=== PATIENT | female | born 1960 | race Caucasian/White ===

== ENCOUNTER 2022-08-29 10:38 | Outpatient (CLI) | payer BC, SELFPAY ==
--- NOTE | 2022-08-29 11:15 | CRLHL7_ITS ---
For Patients: As a result of the Century Cures Act, medical imaging exams and procedure reports are released immediately into your electronic medical record. You may view this report before your referring provider. If you have questions, please contact your health care provider. Indication: NSCLC WITH BONE METS TO RIGHT HIP Technique: Pelvis and right hip 3 views Comparison: None Findings: There is no pathologic fracture. No periostitis or cortical destruction. Subtle areas of abnormal bone density suspected corresponding to the known metastatic lesions. Mild degenerative changes. Impression: No pathologic fracture. Dictated by Vahid Reece MD @ 08/30/2022 6:38:42 AM (Electronically Signed)
== END 2022-08-29 10:39 | disposition home or self-care (01) ==
PROVIDERS: PCP Family Medicine; Visit Provider Nurse Practitioner
DX: C34.32 Malignant neoplasm of lower lobe, left bronchus or lung (principal); C79.51 Secondary malignant neoplasm of bone
CPT/HCPCS: 73502

== ENCOUNTER 2022-11-22 07:59 | Outpatient (CLI) | payer BC, SELFPAY ==
--- NOTE | 2022-11-22 08:15 | CRLHL7_ITS ---
For Patients: As a result of the Century Cures Act, medical imaging exams and procedure reports are released immediately into your electronic medical record. You may view this report before your referring provider. If you have questions, please contact your health care provider. INDICATION: Follow-up intracranial metastatic disease. TECHNIQUE: Brain MRI with contrast. The following sequences were obtained: Sagittal T1 weighted sequence. DWI and ADC mapping sequences. Axial FLAIR and PRISCILA T2 weighted sequences. 3D sagittal FLAIR sequence. T1 weighted post-contrast sequence(s). 15 cc of Dotarem gadolinium based contrast agent was used. COMPARISON: Brain MRI from 08/23/2022. FINDINGS: Again demonstrated are numerous (greater than 30 foci) of enhancement within the supratentorial/infratentorial brain. The largest lesion within the left brachium pontis measures 8 millimeters, and is slightly decreased in size compared to the prior exam. Multiple additional enhancing lesions are either stable or decreased in size. A few of the previously seen smaller lesions have resolved no new enhancing lesions. No evidence of acute ischemia. No evidence of acute or chronic intracranial blood products. Scattered FLAIR hyperintensities within the supratentorial white matter and brainstem, typical for chronic microvascular ischemic change. No hydrocephalus or extra-axial collections. The pituitary gland, parasellar structures and optic chiasm are normal. All the major intracranial vascular structures demonstrate normal flow-related signal. The orbital contents are normal. No calvarial or skull base marrow signal abnormality. No obstructive sinus disease. 8 millimeter T2 hyperintense nodule right parotid tail. Stable. IMPRESSION: 1. Findings compatible with a positive treatment response. Decreased size of most of the previously seen metastatic lesions, with resolution of a few of the smaller lesions. No new intracranial metastases. 2. No acute ischemia or other acute intracranial pathology. Dictated by Swapnil Orozco MD @ 11/25/2022 12:59:16 PM (Electronically Signed)
== END 2022-11-22 08:00 | disposition home or self-care (01) ==
PROVIDERS: PCP Family Medicine; Visit Provider Internal Medicine
DX: C79.31 Secondary malignant neoplasm of brain (principal)
CPT/HCPCS: 70553; A9575

== ENCOUNTER 2023-02-23 08:00 | Outpatient (RCR) | payer BC, SELFPAY ==
[2022-09-22 09:42] LABS: Basophils Absolute Auto 0.05 K/uL (0.00-0.30); Basophils Percent Auto 0.5 % (0.0-3.0); Eosinophils Absolute Auto 0.16 K/uL (0.00-0.50); Eosinophils Percent Auto 1.7 % (0.0-7.0); Hematocrit 44.1 % (33.0-51.0); Hemoglobin* 14.7 gm/dL (12.0-16.0); Immature Granulocytes Abs Auto 0.01 K/uL (0.00-0.30); Immature Granulocytes Pct Auto 0.1 %; Lymphocytes Percent Auto 13.5 % (20-44); Mean Corpuscular HGB Conc 33 gm/dL (32-36); Mean Corpuscular Hemoglobin 31 pg (26-34); Mean Corpuscular Volume 93 fL (80-100); Monocytes Percent Auto 5.5 % (0.0-11.0); Neutrophils Percent Auto 78.7 % (42.0-72.0); Platelet Count* 392 K/uL (140-440); RDW Coefficient of Variation % 12.2 % (11.5-15.5); Red Blood Count 4.72 m/uL (4.00-5.20); White Blood Count* 9.51 K/uL (4.50-11.00)
[2022-09-22 09:49] LABS: Slide Review Reflex No
[2022-09-22 09:59] LABS: Chloride* 104 mmol/L (96-114)
[2022-09-22 10:00] LABS: Albumin* 4.6 g/dL (3.3-5.0); Potassium* 4.2 mmol/L (3.6-5.1); Sodium* 137 mmol/L (135-149)
[2022-09-22 10:02] LABS: Creatinine* 0.5 mg/dL (0.5-1.5); Est. Creatinine Clearance* 46.73; Estimated Glomerular Filt Rate 107 ml/min
[2022-09-22 10:03] LABS: Alanine Aminotransferase* 23 U/L (4-35); Alkaline Phosphatase* 77 U/L (40-150); Aspartate Amino Transferase* 26 U/L (12-35); Bilirubin Total* 0.5 mg/dL (0.1-1.5); Blood Urea Nitrogen* 14 mg/dL (7-30); Carbon Dioxide* 27 mmol/L (20-32); Glucose* 98 mg/dL (60-115)
[2022-09-22 10:04] LABS: Calcium* 9.4 mg/dL (8.4-10.6)
--- NOTE | 2022-09-23 14:08 | URNOTE ---
Request received for authorization for Pembrolizumab (Keytruda) ([id number]). Prior authorization is approved by Jeet Ellis MA Keytruda 100mg/4ml, 9999 units from 09/29/2022 to 09/29/2023.
[2022-09-29 08:33] VITALS: BP 154/79; PULSE 77; RESP 18; TEMP 36.8; O2SAT 97
[2022-09-29] MEDS: 0.9 % SODIUM CHLORIDE 250 ml IV (09:04)
[2022-09-29] MEDS: PEMBROLIZUMAB 200 MG, TUBING PRIMARY 1 EACH, In-line 0.2 micron filter set 1 EACH in 0.... 216 MG IVPB (09:04)
--- NOTE | 2022-09-29 13:47 | ONC.NURNOTE ---
PSDS =0 with no listed problems
--- NOTE | 2022-09-30 10:49 | ONC.NURNOTE ---
Called patient to see how she is feeling following her infusion yesterday. She notes that she feels like she usually does. Reminded her to call with any questions or concerns that arise.
[2022-10-20 08:34] LABS: Basophils Percent Auto 0.3 % (0.0-3.0); Eosinophils Percent Auto 1.6 % (0.0-7.0); Hematocrit 40.9 % (33.0-51.0); Hemoglobin* 13.6 gm/dL (12.0-16.0); Immature Granulocytes Pct Auto 0.4 %; Lymphocytes Percent Auto 6.5 % (20-44); Mean Corpuscular HGB Conc 33 gm/dL (32-36); Mean Corpuscular Hemoglobin 31 pg (26-34); Mean Corpuscular Volume 93 fL (80-100); Monocytes Percent Auto 4.8 % (0.0-11.0); Neutrophils Percent Auto 86.4 % (42.0-72.0); Platelet Count* 491 K/uL (140-440); RDW Coefficient of Variation % 11.8 % (11.5-15.5); White Blood Count* 17.36 K/uL (4.50-11.00)
[2022-10-20 08:38] LABS: Slide Review Reflex No
[2022-10-20 08:45] LABS: Albumin* 4.1 g/dL (3.3-5.0); Chloride* 102 mmol/L (96-114); Potassium* 4.6 mmol/L (3.6-5.1); Sodium* 136 mmol/L (135-149)
[2022-10-20 08:47] LABS: Creatinine* 0.6 mg/dL (0.5-1.5); Est. Creatinine Clearance* 46.73; Estimated Glomerular Filt Rate 102 ml/min
[2022-10-20 08:48] LABS: Alanine Aminotransferase* 30 U/L (4-35); Alkaline Phosphatase* 97 U/L (40-150); Aspartate Amino Transferase* 27 U/L (12-35); Bilirubin Total* 0.6 mg/dL (0.1-1.5); Blood Urea Nitrogen* 11 mg/dL (7-30); Carbon Dioxide* 28 mmol/L (20-32); Glucose* 161 mg/dL (60-115); Total Protein* 7.4 g/dL (6.0-8.3)
[2022-10-20 09:31] LABS: Thyroid Stimulating Hormone* 0.789 uIU/mL (0.270-4.20)
[2022-10-20 10:00] LABS: Appearance Urine Clear (Clear); Bilirubin Urine Negative (Negative); Blood Urine Negative (Negative); Color Urine Yellow (Yellow); Glucose Urine Negative (Negative); Ketones Urine Negative (Negative); Leukocyte Esterase Urine Negative (Negative); Nitrite Urine Negative (Negative); Protein Urine Negative (Negative); Urobilinogen Urine 0.2 (0.2-1.0); pH Urine 5.5 (5.0-8.5)
[2022-10-20 10:15] LABS: Bacteria Urine Few; RBC Urine 0-2 (0-2); Squamous Epithelial Cell Urine Few (None-Few); WBC Urine 0-2 (0-5)
[2022-10-20] MEDS: SODIUM CHLORIDE 0.9 % (FLUSH) 10 ML SYRINGE IVF (10:25)
[2022-10-20] MEDS: PEMBROLIZUMAB 200 MG, TUBING PRIMARY 1 EACH, In-line 0.2 micron filter set 1 EACH in 0.... 216 MG IVPB (10:33)
[2022-10-20] MEDS: 0.9 % SODIUM CHLORIDE 250 ml IV (10:33)
[2022-11-10 08:24] LABS: Basophils Absolute Auto 0.04 K/uL (0.00-0.30); Basophils Percent Auto 0.4 % (0.0-3.0); Eosinophils Absolute Auto 0.13 K/uL (0.00-0.50); Eosinophils Percent Auto 1.2 % (0.0-7.0); Hematocrit 40.7 % (33.0-51.0); Hemoglobin* 13.4 gm/dL (12.0-16.0); Immature Granulocytes Abs Auto 0.04 K/uL (0.00-0.30); Immature Granulocytes Pct Auto 0.4 %; Lymphocytes Percent Auto 9.1 % (20-44); Mean Corpuscular HGB Conc 33 gm/dL (32-36); Mean Corpuscular Hemoglobin 31 pg (26-34); Mean Corpuscular Volume 93 fL (80-100); Monocytes Percent Auto 5.1 % (0.0-11.0); Neutrophils Percent Auto 83.8 % (42.0-72.0); Platelet Count* 538 K/uL (140-440); RDW Coefficient of Variation % 11.8 % (11.5-15.5); Red Blood Count 4.39 m/uL (4.00-5.20); White Blood Count* 10.88 K/uL (4.50-11.00)
[2022-11-10 08:37] LABS: Slide Review Reflex No
[2022-11-10 08:49] LABS: Albumin* 4.1 g/dL (3.3-5.0); Chloride* 102 mmol/L (96-114); Sodium* 136 mmol/L (135-149)
[2022-11-10 08:50] LABS: Potassium* 4.4 mmol/L (3.6-5.1)
[2022-11-10 08:52] LABS: Alkaline Phosphatase* 82 U/L (40-150); Aspartate Amino Transferase* 21 U/L (12-35); Bilirubin Total* 0.6 mg/dL (0.1-1.5); Blood Urea Nitrogen* 13 mg/dL (7-30); Carbon Dioxide* 28 mmol/L (20-32); Creatinine* 0.7 mg/dL (0.5-1.5); Est. Creatinine Clearance* 46.73; Estimated Glomerular Filt Rate 98 ml/min; Glucose* 111 mg/dL (60-115); Total Protein* 7.4 g/dL (6.0-8.3)
[2022-11-10 08:53] LABS: Alanine Aminotransferase* 17 U/L (4-35); Calcium* 9.2 mg/dL (8.4-10.6)
[2022-11-10 09:51] LABS: Thyroid Stimulating Hormone* 0.331 uIU/mL (0.270-4.20)
[2022-11-10] MEDS: PEMBROLIZUMAB 200 MG, TUBING PRIMARY 1 EACH, In-line 0.2 micron filter set 1 EACH in 0.... 216 MG IVPB (10:23)
[2022-12-01 08:06] LABS: Basophils Absolute Auto 0.03 K/uL (0.00-0.30); Basophils Percent Auto 0.3 % (0.0-3.0); Eosinophils Absolute Auto 0.22 K/uL (0.00-0.50); Eosinophils Percent Auto 2.2 % (0.0-7.0); Hematocrit 40.3 % (33.0-51.0); Hemoglobin* 13.1 gm/dL (12.0-16.0); Immature Granulocytes Abs Auto 0.01 K/uL (0.00-0.30); Immature Granulocytes Pct Auto 0.1 %; Lymphocytes Percent Auto 10.8 % (20-44); Mean Corpuscular HGB Conc 33 gm/dL (32-36); Mean Corpuscular Hemoglobin 30 pg (26-34); Mean Corpuscular Volume 93 fL (80-100); Monocytes Percent Auto 4.7 % (0.0-11.0); Neutrophils Percent Auto 81.9 % (42.0-72.0); Platelet Count* 405 K/uL (140-440); RDW Coefficient of Variation % 12.2 % (11.5-15.5); Red Blood Count 4.32 m/uL (4.00-5.20); White Blood Count* 9.91 K/uL (4.50-11.00)
[2022-12-01 08:07] LABS: Slide Review Reflex No
[2022-12-01 08:23] LABS: Albumin* 4.2 g/dL (3.3-5.0)
[2022-12-01 08:24] LABS: Chloride* 104 mmol/L (96-114); Potassium* 4.2 mmol/L (3.6-5.1); Sodium* 139 mmol/L (135-149)
[2022-12-01 08:26] LABS: Bilirubin Total* 0.5 mg/dL (0.1-1.5); Carbon Dioxide* 28 mmol/L (20-32); Creatinine* 0.6 mg/dL (0.5-1.5); Est. Creatinine Clearance* 46.73; Estimated Glomerular Filt Rate 102 ml/min
[2022-12-01 08:27] LABS: Alanine Aminotransferase* 15 U/L (4-35); Alkaline Phosphatase* 72 U/L (40-150); Aspartate Amino Transferase* 25 U/L (12-35); Blood Urea Nitrogen* 13 mg/dL (7-30); Calcium* 9.2 mg/dL (8.4-10.6); Glucose* 89 mg/dL (60-115); Total Protein* 7.3 g/dL (6.0-8.3)
[2022-12-01] MEDS: PEMBROLIZUMAB 200 MG, TUBING PRIMARY 1 EACH, In-line 0.2 micron filter set 1 EACH in 0.... 216 MG IVPB (08:56)
[2022-12-01 09:13] LABS: Thyroid Stimulating Hormone* 0.438 uIU/mL (0.270-4.20)
[2022-12-22 10:25] LABS: Basophils Absolute Auto 0.04 K/uL (0.00-0.30); Basophils Percent Auto 0.5 % (0.0-3.0); Eosinophils Absolute Auto 0.18 K/uL (0.00-0.50); Eosinophils Percent Auto 2.4 % (0.0-7.0); Hematocrit 44.2 % (33.0-51.0); Hemoglobin* 14.3 gm/dL (12.0-16.0); Mean Corpuscular HGB Conc 32 gm/dL (32-36); Mean Corpuscular Hemoglobin 30 pg (26-34); Mean Corpuscular Volume 93 fL (80-100); Neutrophils Percent Auto 79.1 % (42.0-72.0); Platelet Count* 435 K/uL (140-440); RDW Coefficient of Variation % 12.2 % (11.5-15.5); Red Blood Count 4.76 m/uL (4.00-5.20); White Blood Count* 7.48 K/uL (4.50-11.00)
[2022-12-22 10:28] LABS: Slide Review Reflex No
[2022-12-22 10:52] LABS: Albumin* 4.5 g/dL (3.3-5.0); Chloride* 102 mmol/L (96-114); Potassium* 3.8 mmol/L (3.6-5.1); Sodium* 138 mmol/L (135-149)
[2022-12-22 10:54] LABS: Creatinine* 0.8 mg/dL (0.5-1.5); Est. Creatinine Clearance* 44.58; Estimated Glomerular Filt Rate 84 ml/min
[2022-12-22 10:55] LABS: Alanine Aminotransferase* 16 U/L (4-35); Alkaline Phosphatase* 77 U/L (40-150); Aspartate Amino Transferase* 22 U/L (12-35); Bilirubin Total* 0.7 mg/dL (0.1-1.5); Blood Urea Nitrogen* 14 mg/dL (7-30); Carbon Dioxide* 27 mmol/L (20-32); Glucose* 87 mg/dL (60-115); Total Protein* 8.1 g/dL (6.0-8.3)
[2022-12-22 10:56] LABS: Calcium* 9.3 mg/dL (8.4-10.6)
[2022-12-22 11:27] LABS: Thyroid Stimulating Hormone* 0.207 uIU/mL (0.270-4.20)
[2022-12-22] MEDS: PEMBROLIZUMAB 200 MG, TUBING PRIMARY 1 EACH, In-line 0.2 micron filter set 1 EACH in 0.... 216 MG IVPB (11:45)
--- NOTE | 2023-01-09 13:23 | URNOTE ---
Received request for Zoledronic Acid (Zometa) ([id number]). This has been approved 01/12/2023-01/12/2024.Auth #[id number]
[2023-01-10 09:53] LABS: Basophils Absolute Auto 0.04 K/uL (0.00-0.30); Basophils Percent Auto 0.6 % (0.0-3.0); Eosinophils Absolute Auto 0.17 K/uL (0.00-0.50); Eosinophils Percent Auto 2.5 % (0.0-7.0); Hematocrit 38.9 % (33.0-51.0); Hemoglobin* 12.8 gm/dL (12.0-16.0); Lymphocytes Percent Auto 16.4 % (20-44); Mean Corpuscular HGB Conc 33 gm/dL (32-36); Mean Corpuscular Hemoglobin 30 pg (26-34); Mean Corpuscular Volume 92 fL (80-100); Monocytes Percent Auto 6.3 % (0.0-11.0); Neutrophils Percent Auto 74.2 % (42.0-72.0); Platelet Count* 379 K/uL (140-440); RDW Coefficient of Variation % 12.6 % (11.5-15.5); Red Blood Count 4.21 m/uL (4.00-5.20); White Blood Count* 6.72 K/uL (4.50-11.00)
[2023-01-10 09:56] LABS: Slide Review Reflex No
[2023-01-10 10:08] LABS: Albumin* 4.1 g/dL (3.3-5.0); Chloride* 105 mmol/L (96-114); Potassium* 3.9 mmol/L (3.6-5.1); Sodium* 137 mmol/L (135-149)
[2023-01-10 10:10] LABS: Bilirubin Total* 0.6 mg/dL (0.1-1.5); Creatinine* 0.6 mg/dL (0.5-1.5); Est. Creatinine Clearance* 44.58; Estimated Glomerular Filt Rate 102 ml/min
[2023-01-10 10:11] LABS: Alanine Aminotransferase* 13 U/L (4-35); Alkaline Phosphatase* 64 U/L (40-150); Aspartate Amino Transferase* 21 U/L (12-35); Blood Urea Nitrogen* 16 mg/dL (7-30); Calcium* 9.1 mg/dL (8.4-10.6); Carbon Dioxide* 24 mmol/L (20-32); Glucose* 88 mg/dL (60-115); Total Protein* 7.3 g/dL (6.0-8.3)
[2023-01-10 11:09] LABS: Thyroid Stimulating Hormone* < 0.015 uIU/mL (0.270-4.20)
--- NOTE | 2023-01-10 14:56 | ONC.NURNOTE ---
TSH today <0.015, discussed with Iesha. Per Iesha, hold Keytruda on 01/11/23. T3 and T4 added on to blood drawn today. Channel Sales Director emailed Dr. Felipe results and requested parameters to treat. Left message with pt to call back since we will not be able to treat her 01/11/23 morning.
[2023-01-10 15:22] LABS: Free T4 Free Thyroxine* 1.57 ng/dL (0.70-1.85)
[2023-01-12 12:15] VITALS: BP 104/66; PULSE 71; RESP 14; TEMP 36.1; O2SAT 97
[2023-01-12] MEDS: PEMBROLIZUMAB 200 MG, TUBING PRIMARY 1 EACH, In-line 0.2 micron filter set 1 EACH in 0.... 216 MG IVPB (12:53)
[2023-01-12 23:01] LABS: Free T3 3.2 pg/mL (2.5-4.3)
--- NOTE | 2023-01-19 15:59 | ONC.NURNOTE ---
Patient's friend, Josef, called to see when patients next appointments are going to be. RN will be following up tomorrow.
[2023-01-31 08:18] LABS: Basophils Absolute Auto 0.04 K/uL (0.00-0.30); Basophils Percent Auto 0.5 % (0.0-3.0); Eosinophils Absolute Auto 0.19 K/uL (0.00-0.50); Eosinophils Percent Auto 2.5 % (0.0-7.0); Hematocrit 42.1 % (33.0-51.0); Hemoglobin* 13.7 gm/dL (12.0-16.0); Lymphocytes Percent Auto 17.1 % (20-44); Mean Corpuscular HGB Conc 33 gm/dL (32-36); Mean Corpuscular Hemoglobin 30 pg (26-34); Mean Corpuscular Volume 92 fL (80-100); Monocytes Percent Auto 5.2 % (0.0-11.0); Neutrophils Percent Auto 74.7 % (42.0-72.0); Platelet Count* 364 K/uL (140-440); RDW Coefficient of Variation % 12.7 % (11.5-15.5); Red Blood Count 4.58 m/uL (4.00-5.20)
[2023-01-31 08:24] LABS: Slide Review Reflex No
[2023-01-31 08:29] LABS: Albumin* 4.1 g/dL (3.3-5.0); Chloride* 108 mmol/L (96-114); Potassium* 4.4 mmol/L (3.6-5.1); Sodium* 140 mmol/L (135-149)
[2023-01-31 08:31] LABS: Creatinine* 0.6 mg/dL (0.5-1.5); Est. Creatinine Clearance* 44.58; Estimated Glomerular Filt Rate 102 ml/min
[2023-01-31 08:32] LABS: Alanine Aminotransferase* 15 U/L (4-35); Alkaline Phosphatase* 72 U/L (40-150); Anion Gap 6 mEq/L (7-15); Aspartate Amino Transferase* 24 U/L (12-35); Bilirubin Total* 0.4 mg/dL (0.1-1.5); Blood Urea Nitrogen* 10 mg/dL (7-30); Carbon Dioxide* 26 mmol/L (20-32); Total Protein* 7.2 g/dL (6.0-8.3)
[2023-01-31 08:33] LABS: Glucose* 100 mg/dL (60-115)
[2023-01-31 09:29] LABS: Thyroid Stimulating Hormone* < 0.015 uIU/mL (0.270-4.20)
[2023-02-02 13:59] LABS: Calcium* 9.2 mg/dL (8.4-10.6)
[2023-02-02] MEDS: PEMBROLIZUMAB 200 MG, TUBING PRIMARY 1 EACH, In-line 0.2 micron filter set 1 EACH in 0.... 216 MG IVPB (14:44)
[2023-02-02] MEDS: ZOLEDRONIC ACID 4 MG in 0.9 % SODIUM CHLORIDE 100 ml 100 ML 420 MG IVPB (15:17)
[2023-02-02 15:53] LABS: Free T4 Free Thyroxine* 1.61 ng/dL (0.70-1.85)
[2023-02-04 20:24] LABS: Adrenocorticotropic Hormone 21.1 pg/mL (7.2-63.3)
[2023-02-04 21:45] LABS: Cortisol, Serum 29.4 ug/dL
[2023-02-04 23:40] LABS: Free T3 3.1 pg/mL (2.5-4.3)
[2023-02-21 09:49] LABS: Basophils Absolute Auto 0.05 K/uL (0.00-0.30); Basophils Percent Auto 0.8 % (0.0-3.0); Eosinophils Absolute Auto 0.18 K/uL (0.00-0.50); Eosinophils Percent Auto 2.7 % (0.0-7.0); Hematocrit 44.4 % (33.0-51.0); Hemoglobin* 14.3 gm/dL (12.0-16.0); Immature Granulocytes Abs Auto 0.01 K/uL (0.00-0.30); Immature Granulocytes Pct Auto 0.2 %; Lymphocytes Percent Auto 19.5 % (20-44); Mean Corpuscular HGB Conc 32 gm/dL (32-36); Mean Corpuscular Hemoglobin 29 pg (26-34); Mean Corpuscular Volume 91 fL (80-100); Monocytes Percent Auto 5.8 % (0.0-11.0); Neutrophils Absolute Auto 4.65 K/uL (1.7-7.0); Platelet Count* 406 K/uL (140-440); RDW Coefficient of Variation % 12.8 % (11.5-15.5); Red Blood Count 4.88 m/uL (4.00-5.20); Slide Review Reflex No; White Blood Count* 6.55 K/uL (4.50-11.00)
[2023-02-21 10:09] LABS: Albumin* 4.4 g/dL (3.3-5.0)
[2023-02-21 10:10] LABS: Chloride* 106 mmol/L (96-114); Potassium* 4.4 mmol/L (3.6-5.1); Sodium* 139 mmol/L (135-149)
[2023-02-21 10:12] LABS: Anion Gap 6 mEq/L (7-15); Aspartate Amino Transferase* 23 U/L (12-35); Bilirubin Total* 0.6 mg/dL (0.1-1.5); Carbon Dioxide* 27 mmol/L (20-32); Creatinine* 0.6 mg/dL (0.5-1.5); Est. Creatinine Clearance* 44.58; Estimated Glomerular Filt Rate 102 ml/min; Total Protein* 7.9 g/dL (6.0-8.3)
[2023-02-21 10:13] LABS: Alanine Aminotransferase* 16 U/L (4-35); Alkaline Phosphatase* 65 U/L (40-150); Blood Urea Nitrogen* 11 mg/dL (7-30); Calcium* 9.4 mg/dL (8.4-10.6); Glucose* 105 mg/dL (60-115)
[2023-02-23 08:00] VITALS: BP 117/62; PULSE 66; RESP 16; TEMP 36.4; O2SAT 98
[2023-02-23] MEDS: PEMBROLIZUMAB 200 MG, TUBING PRIMARY 1 EACH, In-line 0.2 micron filter set 1 EACH in 0.... 216 MG IVPB (09:15)
[2023-02-23] MEDS: ZOLEDRONIC ACID 4 MG in 0.9 % SODIUM CHLORIDE 100 ml 100 ML 420 MG IVPB (09:49)
[2023-02-23] MEDS: 0.9 % SODIUM CHLORIDE 250 ml IV (09:50)
[2023-02-23] MEDS: SODIUM CHLORIDE 0.9 % (FLUSH) 10 ML SYRINGE IVF (09:50)
== END 2023-02-28 23:59 | disposition home or self-care (01) ==
LOC: CCIC 08:00
PROVIDERS: Internal Medicine Hematology & Oncology; Physician Assistant; PCP Family Medicine; Referring Provider Family Medicine; Visit Provider Clinical Nurse Specialist
DX: C34.92 Malignant neoplasm of unspecified part of left bronchus or lung (principal); Z51.12 Encounter for antineoplastic immunotherapy; C79.51 Secondary malignant neoplasm of bone
CPT/HCPCS: 36415; 80053; 81001; 82024; 82310; 82533; 84439; 84443; 84481; 85025; 87040; 87086; 96374; 96376; 96411; 96413; 99203; 99205; 99211; 99212; 99213; 99214; 99215; J3489; J7050; J9271

== ENCOUNTER 2023-05-05 08:06 | Outpatient (CLI) | payer BC, SELFPAY ==
--- NOTE | 2023-05-05 08:15 | PE_ITS ---
[facility] [address] [facility] [address] Phone:?[phone] Fax:?[phone] Referring Physician Information: Lakisha Julian M.D. [address] [facility] [address] Phone:?[phone] Fax:?[phone] Patient:Mee Deleon D.O.B:?1960 Sex:?Female Phone:?[phone] [facility] MRN:?[id number] Exam Date:?05/05/2023 EXAM: PET/CT SCAN MID-ORBITS TO PROXIMAL THIGHS CLINICAL INFORMATION: Non-small cell lung carcinoma; restaging. COMPARISON:?Most recent PET/CT 02/14/2023. TECHNICAL INFORMATION: Spiral acquisition of data was obtained from the mid orbits to the proximal thighs with reconstruction of 3.75 mm thick images at 3.[address] data was used for attenuation correction. PET scanning was performed through the same anatomic range 54 minutes following administration of 12.9 mCi of 18-FDG delivered intravenously. The patient's glucose at the time of the injection was 81 mg/dL. PET, CT and PET/CT fusion images are interpreted using a computer viewing workstation. Physiologic activity (liver SUV max 3.0; mediastinal blood pool 2.5) INTERPRETATION: Head and Neck: No definite FDG avid brain parenchymal uptake, however MRI with contrast is more sensitive in detection of brain lesions. No neck adenopathy or abnormal radiotracer uptake. Chest: 1 cm right upper lobe nodule, SUV max 1.7, previously 2. No significant change in the size or FDG avidity left lower lobe lesion, SUV max 2.3, previously 3.8 on 02/14/2023. Stable size of 12 mm right subcarinal/infrahilar lymph node, with FDG uptake, SUV max 10.15, previously 6.8. 9 mm right suprahilar node SUV max 5.32. Stable size of left hilar adenopathy, SUV max 7.45, previously 6.3 on 02/14/2023. Abdomen, Pelvis and Proximal Thighs: Physiologic distribution of radiotracer uptake throughout the liver, GI and tract. No mesenteric or retroperitoneal adenopathy. MUSCULOSKELETAL: Numerous scattered sclerotic metastasis with FDG avidity throughout the axial and appendicular skeleton, including right humeral head, bilateral ribs, thoracic/lumbar vertebrae, bony pelvis. No new lesions are identified. CONCLUSION: 1. Stable sized with interval FDG avidity right subcarinal/hilar lymph node, SUV max 10.15, previously 6.8 on 02/14/2023. 2. Relative stable size and metabolic activity right upper/left lower lobe malignancy, left hilar adenopathy and multiple sclerotic osseous lesions. No new lesions are identified. Electronically signed on 05/08/2023 11:00:00 AM by Clemente Craven M.D.
== END 2023-05-05 08:07 | disposition home or self-care (01) ==
LOC: RAD 08:07
PROVIDERS: PCP Family Medicine; Visit Provider Internal Medicine Hematology & Oncology
DX: C34.32 Malignant neoplasm of lower lobe, left bronchus or lung (principal)
CPT/HCPCS: 78815; A9552

== ENCOUNTER 2023-06-26 09:06 | Outpatient (CLI) | payer BC, SELFPAY ==
--- OUTSIDE RECORDS SUMMARY | 2023-06-26 09:10 | XMS_ITS | Encounter Summary ---
Author Name Unknown Organization [facility] Address [address] [place] [address] Care Team Providers Care Rubber Attacher Name Role Phone Suhail Burrows M.D. Primary Care P dena Reason for Referral * MRI/CAT/PET Scan (Routine) - Modified Order Specialty Diagnoses / Procedures Referred By Yelena griffin Referred To Contact Radiology Diagnoses 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) Secondary Malignant Neoplasm Brain (HCC) Procedures MR Brain with IV Contrast MR Brain with IV Contrast Clemente Feng M.D. [address] [place] [address] [facility] Referral ID Status Reason Start Date Expiration Date V isits Requested Visits Authorized [id number] Modified Order 05/24/2023 05/23/2024 1 1 DENTIAL ASSISTANT * Outpatient (Routine) - Authorized Specialty Diagnoses / Procedures Referred By Yelena griffin Referred To Contact Radiation Oncology Clemente Feng M.D. [address] [place] [address] [facility] Referral ID Status Reason Start Date Expiration Date V isits Requested Visits Authorized [id number] Authorized 05/24/2023 05/23/2026 1 1 Scheduling Instructions AFTER brain MRI and visit with Dr. Julian at [facility]. Patient may cancel visit if she already has results from Dr. Julian. DENTIAL ASSISTANT * Radiation Therapy (Routine) - Authorized Specialty Diagnoses / Procedures Referred By Yelena griffin Referred To Contact Diagnoses 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) Procedures Management Visit Celmente Feng M.D. [address] [place] [address] [facility] Region Referral ID Status Reason Start Date Expiration Date V isits Requested Visits Authorized [id number] Authorized 05/12/2023 05/11/2024 10 10 DENTIAL ASSISTANT Reason for Visit * Radiation Therapy (Routine) - Authorized Specialty Diagnoses / Procedures Referred By Yelena griffin Referred To Contact Diagnoses 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) Procedures Management Visit Clemente Feng M.D. [address] [place] [address] [facility] Region Referral ID Status Reason Start Date Expiration Date V isits Requested Visits Authorized [id number] Authorized 05/12/2023 05/11/2024 10 10 Encounter Details Date Type Department Care Team (Latest Contact Info) Description 05/24/2023 11:17 AM RESIDENTIAL ASSISTANT - 05/28/2023 3:15 PM RESIDENTIAL ASSISTANT Hospital Encounter Department of Radiation Oncology in [address] [address] Clemente Feng M.D. [address] [place] [phone] Secondary Malignant Neoplasm Brain (HCC) (Primary Dx); 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) Social History Tobacco Use Types Packs/Day Years Used Date Smoking Tobacco: Former Cigarettes 30 1 993 - 08/10/2022 Smokeless Tobacco: Never Alcohol Use Standard Drinks/Week Comments Yes 0 (1 standard drink = 0.6 oz pur e alcohol) rare Nutrition Answer Date Recorded Nutrition: EVOO Fat Source Unknown 06/09 Nutrition: Servings of Fruits/Vegetables per Day Not on file 06/09/2022 Dental Answer Date Recorded Dental: Regular Dentist Unknown 06/09/20 22 Sex and Gender Information Value Date Recorded Sex Assigned at Not on file Gender Identity Not on file Sexual Orientation Not on file documented as of this encounter Last Filed Vital Signs Vital Sign Reading Time Taken Comments Blood Pressure 107/51 05/24/2023 11:33 AM RESIDENTIAL ASSISTANT Pulse 62 05/24/2023 11:33 AM RESIDENTIAL ASSISTANT Temperature 36.6 ??C (97.9 ??F) 05/24/2023 11:[address] Respiratory Rate - - Oxygen Saturation - - Inhaled Oxygen Concentration - - Weight 51 kg (112 lb 7 oz) 05/24/2023 11:[address] Height - - Body Mass Index 20.05 09/21/2022 8:18 AM CDT documented in this encounter Medications at Time of Discharge Medication Sig Dispensed Refills Start Date End Date amLODIPine (NORVASC) 10 mg tabletIndications:Hyper tension Essential Primary Take 1 tablet (10 mg total) by mouth daily. 90 tablet 3 09/21/2022 09/21/2023 cyclobenzaprine (FLEXERIL) 10 mg tabletIndications:Malig nant Neoplasm Of Lung Lower Lobe Or Bronchus Left (HCC) Take 1 tablet (10 mg total) by mouth at bedtime. 30 tablet 1 09/21/2022 memantine (NAMENDA) 10 mg tabletIndications:Malig nant Neoplasm Of Lung Lower Lobe Or Bronchus Left (HCC) Take 1 tablet (10 mg total) by mouth 2 (two) times a day. 180 tablet 3 09/21/2022 09/21/2023 documented as of this encounter Progress Notes * Clemente Feng M.D. - 05/24/2023 11:45 AM CST SUBJECTIVE REASON FOR VISIT Evaluation for side effects while receiving radiation treatment for 1. 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 ([id number]) HISTORY OF PRESENT ILLNESS Miss Sandrine Deleon is a 62 y.o. 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 Treatment Course: 3xLung Plan ID Fractions Dose / Fraction (cGy) Dose Treated (cGy) Dose Planned (cGy) First Treatment Last Treatment Elapsed Days [id number] 4 / 5 400 1600 199905/18/2023 05/23/2023 5 Course Summary 05/18/2023 05/23/2023 5 The patient was seen and examined today with Dr. Feng. The patient reports to be feeling well overall. She denies any side effects form radiation at this time. PATIENT REPORTED SYMPTOM SCREEN FATIGUE (Scale: 0 = no fatigue; 10 = worst fatigue you can imagine): 1 PAIN (Scale: 0 = no pain; 10 = worst pain you can imagine): 1 OVERALL QUALITY OF LIFE (Scale: 0 = as bad as can be; 10 = as good as can be): 8 OBJECTIVE BP (!) 107/51 (BP Location: Right arm, Patient Position: Sitting, Cuff Size: Regular) Pulse 62 Temp 36.6 ??C (Temporal) Wt 51 kg BMI 20.05 kg/m?? PHYSICAL EXAM General: Alert and oriented in no apparent distress. 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 The patient is tolerating radiation treatment well overall. Discussed with patient if she were to develop throat discomfort she could take Tylenol or Ibuprofen whichever works best for her. We discussed the signs and symptoms radiation pneumonitis consist of a marked increase in shortness of breath, dry cough, pain with inspiration and possible fever. She understands that she is at risk for this between 6 weeks and 6 months post radiation treatment. Patient will have ongoing Keytruda infusions and follow up with Dr. Julian at [facility]. Her next infusion is on June 07, [address] Julian is on July 08, 2023. Dr. Feng will also see her around mid June following a brain MRI at [facility]. This is follow up in relation to her previous courseof whole brain radiation. Patient can contact our care team with any questions or concerns. Signed by: Ingrid Feng R.N. 05/24/2023 12:02 PM RESIDENTIAL ASSISTANT I saw and evaluated the patient and participated in the hansen portions of the service. I reviewed thedocumentation of Ingrid Feng R.N. and agree with the findings and plan. The patient appears well on exam. She has tolerated treatment well. She will call us if she experiences esophagitis. Shewill follow- up with Dr. Julian in June. I will see her in June as well after a repeat brain MRI at [facility]. She verbalized satisfaction with this plan. Signed by: Clemente Feng M.D. 05/28/2023 3:12 PM RESIDENTIAL ASSISTANT [facility] [address] [place] [address] DENTIAL ASSISTANT documented in this encounter Miscellaneous Notes * Addendum Note - Jennifer Alba, C.N.A. - 05/24/2023 11:45 AM CSTEncounter addended by: Jennifer Alba, C.N.A. on: 05/29/2023 7:56 AM Actions taken: Letter saved DENTIAL ASSISTANT documented in this encounter Plan of Treatment Upcoming Encounters Date Type Department Care Team (Latest Contact Info) Description 06/29/2023 11:00 AM RESIDENTIAL ASSISTANT Appointment Department of Radiation Oncology in [place], [place] [address] [place] [phone] Clemente Feng M.D. [address] [place] [address] 08/08/2023 10:30 AM RESIDENTIAL ASSISTANT Comprehensive Visit Department of Endocrinology in [place], [place] [address] [facility] [place] [place] [address] Tomer Hinson M.D. [address] [facility] [place] [phone] Discharge Disposition: Home or Self Care Scheduled Orders Name Type Priority Associated Diagnoses Order Schedule Management Visit Radiation Oncology Routine 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) Once for 1 Occurrences starting 05/24/2023 until 05/24/2023 MR Brain with IV Contrast Imaging RAD - Routine (most inpatients and all outpatients) 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) Secondary Malignant Neoplasm Brain (HCC) Expected: 06/26/2023 (Approximate), Expires: 08/22/2024 Scheduled Referrals Name Type Priority Associated Diagnoses Orde r Schedule Radiation Oncology office visit (clinic) Outpatient Referral Routine Expected: 06/27/2023 (Approximate), Expires: 05/24/2024 documented as of this encounter Visit Diagnoses Diagnosis Secondary Malignant Neoplasm Brain (HCC)- Primary 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) documented in this encounter Care Teams Rubber Attacher Relationship Specialty Start Date End Date Suhail Burrows M.B.B.SHector, MChika. [address] [place] [address] [place] [address] PCP - General Family Medicine 06/09/22 documented as of this encounter
--- OUTSIDE RECORDS SUMMARY | 2023-06-26 09:10 | XMS_ITS | Encounter Summary ---
Author Name Unknown Organization [facility] Address [address] [place] [address] Care Team Providers Care Inspector Wire Products Name Role Phone Suhail Burrows M.D. Primary Care Allan fernandes Reason for Visit * Radiation Therapy (Routine) - Closed Specialty Diagnoses / Procedures Referred By Yelena t Referred To Contact Diagnoses 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) Procedures Prior Auth Rad Tx TX IMRT COMPLEX IMRT Clemente Feng M.D. [address] [place] [address] [facility] Referral ID Status Reason Start Date Expiration Date Visits Re quested Visits Authorized [id number] Closed 05/18/2023 05/11/2024 5 5 Encounter Details Date Type Department Care Team (Latest Contact Info) Description 05/24/2023 12:00 PM CHIEF METER READER - 05/24/2023 11:59 PM [facility] Hospital Encounter Department of Radiation Oncology in [place], [place] [address] [place] [phone] Clemente Feng M.D. [address] [place] [phone] Discharge Disposition: Home or Self Care Social History Tobacco Use Types Packs/Day Years Used Date Smoking Tobacco: Former Cigarettes 1 30 1 993 - 08/10/2022 Smokeless Tobacco: Never Alcohol Use Standard Drinks/Week Comments Yes 0 (1 standard drink = 0.6 oz pur e alcohol) rare Nutrition Answer Date Recorded Nutrition: EVOO Fat Source Unknown 06/09 Nutrition: Servings of Fruits/Vegetables per Day Not on file 06/09/2022 Dental Answer Date Recorded Dental: Regular Dentist Unknown 06/09/20 Sex and Gender Information Value Date Recorded Sex Assigned at Not on file Gender Identity Not on file Sexual Orientation Not on file documented as of this encounter Medications at Time of Discharge [...] 09/21/2022 09/21/2023 documented as of this encounter Plan of Treatment Upcoming Encounters Date Type Department Care Team (Latest Contact Info) Description 06/29/2023 11:00 AM CHIEF METER READER Appointment Department of Radiation Oncology in [place], [place] [address] [place] [phone] Clemente Feng M.D. [address] [place] [address] 08/08/2023 10:30 AM CHIEF METER READER Comprehensive Visit Department of Endocrinology in [place], [place] [address] [place] [phone] Tomer Hinson M.D. [address] [place] [phone] Discharge Disposition: Home or Self Care documented as of this encounter Visit Diagnoses Not on filedocumented in this encounter Care Teams Inspector Wire Products Relationship Specialty Start Date End Date Suhail Burrows M.B.B.S., M.D. [address] [place] [address] [place] [phone] PCP - General Family Medicine 06/09/22 documented as of this encounter
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
--- OUTSIDE RECORDS SUMMARY | 2023-06-26 09:10 | XMS_ITS | Clinical Summary ---
Author Name Unknown Organization [facility] Address [address] [place] [address] Care Team Providers Care Crossband Layer Name Role Phone Suhail Burrows M.D. Primary Care Allan fernandes Source Comments Patient records contain information from all sites at [facility]. For routine questions regarding patient records, call [phone] during business hours, M-F 8:00 AM - 5:00 PM Central Time. 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 30 tablet 1 09/21/2022 Active Additional Information Patient not taking.Reported on 05/15/2023 amLODIPine (NORVASC) 10 mg tabletIndications :Hypertension Essential Primary Take 1 tablet (10 mg total) by mouth daily. 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 06/20/2022 Cancer Staging:Clinical stage from 08/08/2022:Stage IVB(cT2a, cN3, cM1c) - Unsigned Restless Leg Syndrome 02/24/2015 Atypical Squamous Cells Undetermined Significanc e Cervix 08/29/2013 Overview: 07/08/16: [place]: GROVER 1 08/03/16: LEEP: Negative, Ecto: Positive for atypia suggestive of HPV effect Endo: Free of atypia and GROVER 12/21/17: LSIL/HPV Positive Plan: Colposcopy Resolved Problems Problem Noted Date Diagnosed Date Resolved Date Elevated Blood Pressure Without Hypertension 2 06/20/2022 Melanoma Skin 04/01/2010 08/01/2022 Overview: Right arm 2000 Encounters Date Type Department Care Team Description 05/24/2023 12:00 PM CYLINDER MACHINE OPERATOR PULP DRIER - 05/24/2023 11:59 PM CYLINDER MACHINE OPERATOR PULP DRIER Hospital Encounter Department of Radiation Oncology in [address] [phone] Clemente Feng M.D. Discharge Disposition: Home or Self Care 05/24/2023 11:17 AM CYLINDER MACHINE OPERATOR PULP DRIER - 05/28/2023 3:15 PM CYLINDER MACHINE OPERATOR PULP DRIER Hospital Encounter Department of Radiation Oncology in [address] [phone] Clemente Feng M.D. 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 Discharge Disposition: Home or Self Care 05/22/2023 11:06 AM CYLINDER MACHINE OPERATOR PULP DRIER - 05/22/2023 11:59 PM CYLINDER MACHINE OPERATOR PULP DRIER Hospital Encounter Department of Radiation Oncology in [address] [phone] Clemente Feng M.D. Discharge Disposition: Home or Self Care 05/19/2023 1:39 PM CYLINDER MACHINE OPERATOR PULP DRIER - 05/19/2023 11:59 PM CYLINDER MACHINE OPERATOR PULP DRIER Hospital Encounter Department of Radiation Oncology in [address] [phone] Clemente Feng M.D. Discharge Disposition: Home or Self Care 05/18/2023 3:31 PM CYLINDER MACHINE OPERATOR PULP DRIER - 05/18/2023 11:59 PM CYLINDER MACHINE OPERATOR PULP DRIER Hospital Encounter Department of Radiation Oncology in [address] [phone] Clemente Feng M.D. Discharge Disposition: Home or Self Care 05/15/2023 2:48 PM CYLINDER MACHINE OPERATOR PULP DRIER - 05/17/2023 6:47 PM CYLINDER MACHINE OPERATOR PULP DRIER Hospital Encounter Department of Radiation Oncology in [address] [address] Clemente Feng M.D. 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 from Last 3 Months Immunizations Name Administration Dates Next Due Influenza (IM) Preservative Free 02/28/2010 Influenza TIV (IM) 04/12/2012,03/12/2010 Influenza, Injectable, Quadrivalent 04/01/2022,1 Influenza, Seasonal, Injectable 04/12/2012 Tdap 04/01/2010 influenza vaccine quad (FLUZ ONE/FLUARIX) (6 months and older)(PF) 04/12/2016,02/24/2015 Family History Medical History Relation Name Comments Colon cancer Brother Diabetes mellitus type I Brother Colon cancer Mother Relation Name Status Comments Brother Mother Social History Tobacco Use Types Packs/Day Years Used Date Smoking Tobacco: Former Cigarettes 1 30 1 993 - 08/10/2022 Smokeless Tobacco: Never Tobacco Cessation:Counseling Given: Not Answered Alcohol Use Standard Drinks/Week Comments Yes 0 [...] on file Sexual Orientation Not on file Last Filed Vital Signs Vital Sign Reading Time Taken Comments Blood Pressure 107/51 05/24/2023 11:33 AM CYLINDER MACHINE OPERATOR PULP DRIER Pulse 62 05/24/2023 11:33 AM CYLINDER MACHINE OPERATOR PULP DRIER Temperature 36.6 ??C (97.9 ??F) 05/24/2023 11:[address] Respiratory Rate 16 09/21/2022 8:18 AM CDT Oxygen Saturation 92% 08/08/2022 10:30 AM CYLINDER MACHINE OPERATOR PULP DRIER Inhaled Oxygen Concentration - - Weight 51 kg (112 lb 7 oz) 05/24/2023 11:[address] Height 159.5 cm (5' 2.8) 09/21/2022 8:18 AM CDT Body Mass Index 20.05 09/21/2022 8:18 AM CDT Plan of Treatment Upcoming Encounters Date Type Department Care Team (Latest Contact Info) Description 06/29/2023 11:00 AM CYLINDER MACHINE OPERATOR PULP DRIER Appointment Department of Radiation Oncology in [place], [place] [address] [place] [address] Clemente Feng M.D. [address] [place] [address] 08/08/2023 10:30 AM CYLINDER MACHINE OPERATOR PULP DRIER Comprehensive Visit Department of Endocrinology in [place], [place] [address] [place] [phone] Tomer Hinson M.D. [address] [place] [phone] Discharge Disposition: Home or Self Care Health Maintenance Due Date Last Done Comments CT Colonography 1961 Cologuard 1961 HIV Screening 1961 Hepatitis C Screening 1961 Pneumococcal vaccine (0-64 years) (1 of 2 - PCV) 1967 Zoster Vaccines (1 of 2) 1980 DTaP,Tdap,and Td Vaccines (2 - Td or Tdap) 04/01/2020 04/01/2010 Office Visit for Blood Pressure Check / Re-check 12/21/2022 09/21/2022 COVID-19 Vaccine ( season) 2023 06/17/2021, 10/20/2020, 09/29/2020 Influenza Vaccine (#1) 2023 , 03/30/2021, 04/12/2016, Additional history exists Depression Screening (Annual PHQ-2) 06/12/2023 Visit: Chronic Disease, age 18+ 09/22/2023 09/21/2022 Mammogram 09/27/2023 09/26/2022, 12/10, 04/18/2016, Additional history exists Fasting Glucose for Diabetes Screening 08/18/2025 08/18/2022, 07/04/2022 Colonoscopy 05/20/2026 Colorectal Cancer Surveillance 05/20/2026 Cervical Cancer Screening 09/22/2027 09/21/2022, 05/2023 Lipid (Cholesterol) Screening 09/22/2027 09/21/2022 Lung Cancer Screening Discontinued 07/05/2022 HPV Vaccines Aged Out No longer eligi ble based on patient's age to complete this topic Procedures Procedure Name Priority Date/Time Associated Diagnosis Comments ARIA DAILY TREATMENT INFORMATION Routine 05/24/2023 12:14 PM CYLINDER MACHINE OPERATOR PULP DRIER ARIA DAILY TREATMENT INFORMATION Routine 05/23/2023 11:49 AM CYLINDER MACHINE OPERATOR PULP DRIER ARIA DAILY TREATMENT INFORMATION Routine 05/22/2023 11:28 AM CYLINDER MACHINE OPERATOR PULP DRIER ARIA DAILY TREATMENT INFORMATION Routine 05/19/2023 1:52 PM CYLINDER MACHINE OPERATOR PULP DRIER ARIA DAILY TREATMENT INFORMATION Routine 05/18/2023 4:15 PM CYLINDER MACHINE OPERATOR PULP DRIER INITIAL RAD ONC TREATMENT PLANNING CT SIMULATION Routine 05/15/2023 3:00 PM CYLINDER MACHINE OPERATOR PULP DRIER 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 (05/24/2023 12:14 PM CYLINDER MACHINE OPERATOR PULP DRIER) Only the most recent of5 resultswithin the time period is included. Course ID 3xLung [facility] Course Start Date 3 15:45 CYLINDER MACHINE OPERATOR PULP DRIER [facility] First Treatment Date 3 16:13 CYLINDER MACHINE OPERATOR PULP DRIER [facility] Last Treatment Date 3 12:14 CYLINDER MACHINE OPERATOR PULP DRIER [facility] Treatment Elapsed Days 6 GAMING ARIA Reference Point [id number] GAMING ARIA Dosage Given to Date cGy 1999 GAMING ARIA Session Dosage Given 400 GAMING ARIA Plan ID [id number] GAMING ARIA Fractions Treated to Date 5 GAMING ARIA Planned Total Fractions 5 GAMING ARIA Prescribed Dose Per Fraction 400 GAMING ARIA Prescription Dose in cGy 1999 GAMING ARIA Plan Primary Reference Point [id number] GAMING ARIA 05/24/2023 12:1 4 PM CYLINDER MACHINE OPERATOR PULP DRIER Provider Not In System RADIATION ONCOLOG Y ORDERABLES AMBERLY RUFFIN na * Initial Rad Onc Treatment Planning CT Simulation (05/15/2023 3:00 PM CYLINDER MACHINE OPERATOR PULP DRIER) Narrative AMBERLY GARCESA - 05/15/2023 3:00 PM CYLINDER MACHINE OPERATOR PULP DRIER Parisa Sexton, RTT ? 05/15/2023 ??3:18 PM Initial Rad Onc Treatment Planning CT Simulation Performed by: Clemente Feng M.D. Authorized by: Clemente Feng M.D. ?? Clemente Feng M.D. RADIATION ONCOLOGY ORDERABLES Performing Organization Address [facility] Co de Phone Number AMBERLY RUFFIN na * PET skull to mid thigh-Outside NM Pet (05/05/2023 9:20 AM CYLINDER MACHINE OPERATOR PULP DRIER) Narrative IIMS - 05/10/2023 3:41 PM CYLINDER MACHINE OPERATOR PULP DRIER This order has been created and auto-finalized to support the import of outside images. If available, original interpretation can be found on the Media Tab in Chart Review, in Document Viewer, or as an image in QREADS. If a re-interpretation or overread is required please follow defined workflow. ?? Provider Not In System IMG NM PROCEDURES Performing Organization Address [facility] Co de Phone Number NANCY MARY from Last 3 Months Care Teams Crossband Layer Relationship Specialty Start Date End Date Suhail Burrows M.B.B.S., M.D. [address] [place] [address] [place]SE[place] Alvarez [phone] PCP - General Family Medicine 06/09/22
--- OUTSIDE RECORDS SUMMARY | 2023-06-26 09:10 | XMS_ITS | Encounter Summary ---
Author Name Unknown Organization [facility] Address [address] [place] [address] Care Team Providers Care Eligibility Consultant Name Role Phone Suhail Burrows M.D. 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 [address] [place] [address] [facility] Referral ID Status Reason Start Date Expiration Date Visits Re quested Visits Authorized [id number] Closed 05/18/2023 05/11/2024 5 5 Encounter Details Date Type Department Care Team (Latest Contact Info) Description 05/18/2023 3:31 PM STOCK PLAN ADMINISTRATOR - 05/18/2023 11:59 PM STOCK PLAN ADMINISTRATOR Hospital Encounter Department of Radiation Oncology in [place], [place] [address] [place] [phone] Clemente Feng M.D. [address] [place] [phone] Discharge Disposition: Home or Self Care Social [...] (Latest Contact Info) Description 06/29/2023 11:00 AM STOCK PLAN ADMINISTRATOR Appointment Department of Radiation Oncology in [place], [place] [address] [place] [phone] Clemente Feng M.D. [address] [place] [address] 08/08/2023 10:30 AM STOCK PLAN ADMINISTRATOR Comprehensive Visit Department of Endocrinology in [place], [place] [address] [place] [phone] Tomer Hinson M.D. [address] [place] [phone] Discharge Disposition: Home or Self Care documented as of this encounter Visit Diagnoses Not on filedocumented in this encounter Care Teams Eligibility Consultant Relationship Specialty Start Date End Date Suhail uBrrows M.B.B.S., M.D. [address] [place] [address] [place]FA [phone] PCP - General Family Medicine 06/09/22 documented as of this encounter
--- OUTSIDE RECORDS SUMMARY | 2023-06-26 09:10 | XMS_ITS | Encounter Summary ---
Author Name Unknown Organization [facility] Address [address] [place] [address] Care Team Providers Care Pharmacy Technician Inpatient Name Role Phone Suhail Burrows M.D. 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 [address] [place] [address] [facility] Referral ID Status Reason Start Date Expiration Date Visits Re quested Visits Authorized [id number] Closed 05/18/2023 05/11/2024 5 5 Encounter Details Date Type Department Care Team (Latest Contact Info) Description 05/23/2023 11:33 AM BIOMEDICAL EQUIPMENT TECH - 05/23/2023 11:59 PM [facility] Hospital Encounter Department of Radiation Oncology in [place], [place] [address] [place] [phone] Clemente Feng M.D. [address] [place] [phone] Discharge Disposition: Home or Self Care Social [...] (Latest Contact Info) Description 06/29/2023 11:00 AM BIOMEDICAL EQUIPMENT TECH Appointment Department of Radiation Oncology in [place], [place] [address] [place] [phone] Clemente Feng M.D. [address] [place] [address] 08/08/2023 10:30 AM BIOMEDICAL EQUIPMENT TECH Comprehensive Visit Department of Endocrinology in [place], [place] [address] [place] [phone] Tomer Hinson M.D. [address] [place] [phone] Discharge Disposition: Home or Self Care documented as of this encounter Visit Diagnoses Not on filedocumented in this encounter Care Teams Pharmacy Technician Inpatient Relationship Specialty Start Date End Date Suhail Burrows M.B.B.S., M.D. [address] [place] [address] [place] [phone] PCP - General Family Medicine 06/09/22 documented as of this encounter
--- OUTSIDE RECORDS SUMMARY | 2023-06-26 09:10 | XMS_ITS ---
Author Name Unknown Organization [facility] Address [address] [place] [address] Care Team Providers Care Dope Edger Name Role Phone Unavailable Unavailable Unavailable Surgery Details Not on file Complications Check Surgery Details section. Procedure Estimated Blood Loss Check Surgery Details section. Procedure Findings Check Surgery Details section. Procedure Specimens Taken Check Surgery Details section.
--- OUTSIDE RECORDS SUMMARY | 2023-06-26 09:10 | XMS_ITS | Encounter Summary ---
Author Name Unknown Organization [facility] Address [address] [place] [address] Care Team Providers Care Management Coordinator Name Role Phone Suhail Burrows M.D. 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 200 [place] [address] [facility] Region Referral ID Status Reason Start Date Expiration Date Visits Re quested Visits Authorized [id number] Closed 05/12/2023 05/11/2024 1 1 Encounter Details Date Type Department Care Team (Latest Contact Info) Description 05/15/2023 2:47 PM TRAVELING CRANE OPERATOR - 05/22/2023 2:20 PM [facility] Hospital Encounter Department of Radiation Oncology in [place], [place] [address] [place] [phone] Clemente Feng M.D. [address] [place] [phone] Princess Ruiz R.N. 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 [address] [place] [address] 08/08/2023 10:30 AM TRAVELING CRANE OPERATOR Comprehensive Visit Department of Endocrinology in [place], [place] [address] [facility] [place] [place] [phone] Tomer Hinson M.D. 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)- Primary documented in this encounter Administered Medications Inactive Administered Medications - up to 3 most recent administrations Medication Order MAR Action Action Date Dose Rate Site iohexoL 300 mg iodine/mL solution 80 mL (OMNIPAQUE) 80 mL, intravenous, Once in imaging, contrast, Starting on Mon05/17/23 at 1734, For 1 dose Given 05/15/2023 2:18 PM TRAVELING CRANE OPERATOR 80 mL sodium chloride 0.9 % injection 10 mL 10 mL, intravenous, As needed, line care, Peripheral Intravenous Catheter and Rapid Infusion Catheter, Starting on Mon05/15/23 at 1441, Prior to blood sampling, post blood transfusion or post blood sampling. Given 05/15/2023 2:19 PM TRAVELING CRANE OPERATOR 10 mL Given 05/15/2023 2:15 PM TRAVELING CRANE OPERATOR 10 mL documented in this encounter Care Teams Management Coordinator Relationship Specialty Start Date End Date Suhail Burrows M.B.B.S., MChika. [address] [place] [phone] PCP - General Family Medicine 06/09/22 documented as of this encounter
--- OUTSIDE RECORDS SUMMARY | 2023-06-26 09:10 | XMS_ITS ---
Author Name Unknown Organization [facility] Address [address] [place] [address] Care Team Providers Care Certified Professional Midwife Name Role Phone Suhail Burrows M.D. Primary Care P dena Active Problems Problem Noted Date Diagnosed Date [...] Undetermined Significanc e Cervix 08/29/2013 Overview: 07/08/16: [place]: GROVER 1 08/03/16: LEEP: Negative, Ecto: Positive for atypia suggestive of HPV effect Endo: Free of atypia and GROVER 12/21/17: LSIL/HPV Positive Plan: Colposcopy Current Oncology Plans No current plan information found. Past Plans No past plan information found. Radiation Treatments * Plan Last Treated On Elapsed Days Fractions Treated Prescribed Fraction Dose Prescribed Total Dose [id number] 05/24/2023 6 5 of 5 400 cGy 2,000 cGy [id number] 03/08/2023 0 1 of 1 800 cGy 800 cGy [id number] 09/09/2022 11 10 of 10 300 cGy 3,000 cG y Reference Point Last Treated On Elapsed Days Session Dose Total Dose [id number] 05/24/2023 6 400 cGy 2,000 cGy [id number] 03/08/2023 0 800 cGy 800 cGy [id number] 09/09/2022 11 300 cGy 3,000 cGy Resolved Problems Problem Noted Date Diagnosed Date Resolved Date Elevated Blood Pressure Without Hypertension 2 06/20/2022 Melanoma Skin 04/01/2010 08/01/2022 Overview: Right arm 2000
--- OUTSIDE RECORDS SUMMARY | 2023-06-26 09:10 | XMS_ITS | Referral Summary ---
Author Name Unknown Organization [facility] Address [address] [place] [address] Care Team Providers Care Skilled Nursing Facilities Professional Name Role Phone Suhail Burrows M.D. Primary Care Allan fernandes Source Comments Patient records contain information from all sites at [facility]. For routine questions regarding patient records, call [phone] during business hours, M-F 8:00 AM - 5:00 PM Central Time. Record requests for emergency care only can be directed to [phone] at any time.[facility] Encounters Date Type Department Care Team Description 05/24/2023 11:17 AM WARD SUPERVISOR - 05/28/2023 3:15 PM WARD SUPERVISOR Hospital Encounter Department of Radiation Oncology in [address] [phone] Clemente Feng M.D. 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 Discharge Disposition: Home or Self Care 05/23/2023 11:33 AM WARD SUPERVISOR - 05/23/2023 11:59 PM WARD SUPERVISOR Hospital Encounter Department of Radiation Oncology in [address] [phone] Clemente Feng M.D. Discharge Disposition: Home or Self Care 05/22/2023 11:06 AM WARD SUPERVISOR - 05/22/2023 11:59 PM WARD SUPERVISOR Hospital Encounter Department of Radiation Oncology in [address] [address] Clemente Feng M.D. Discharge Disposition: Home or Self Care 05/15/2023 2:47 PM WARD SUPERVISOR - 05/22/2023 2:20 PM WARD SUPERVISOR Hospital Encounter Department of Radiation Oncology in [address] [address] Clemente Feng M.D. 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 Discharge Disposition: Home or Self Care 05/18/2023 3:31 PM WARD SUPERVISOR - 05/18/2023 11:59 PM WARD SUPERVISOR Hospital Encounter Department of Radiation Oncology in [address] [address] Clemente Feng M.D. Discharge Disposition: Home or Self Care 05/15/2023 2:48 PM WARD SUPERVISOR - 05/17/2023 6:47 PM WARD SUPERVISOR Hospital Encounter Department of Radiation Oncology in [address] [address] Clemente Feng M.D. 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 from Last 3 Months Allergies No known active allergies Medications Medication [...] Undetermined Significanc e Cervix 08/29/2013 Overview: 07/08/16: [place]: GROVER 1 08/03/16: LEEP: Negative, Ecto: Positive for atypia suggestive of HPV effect Endo: Free of atypia and GROVER 12/21/17: LSIL/HPV Positive Plan: Colposcopy Resolved Problems Problem Noted Date Diagnosed Date Resolved Date Elevated Blood Pressure Without Hypertension 2 06/20/2022 Melanoma Skin 04/01/2010 08/01/2022 Overview: Right arm 2000 Immunizations Name Administration Dates Next Due Influenza (IM) Preservative Free 02/28/2010 Influenza TIV (IM) 04/12/2012,03/12/2010 Influenza, Injectable, Quadrivalent 04/01/2022,1 Influenza, Seasonal, Injectable 04/12/2012 Tdap 04/01/2010 influenza vaccine quad (FLUZ ONE/FLUARIX) (6 months and older)(PF) 04/12/2016,02/24/2015 Social History Tobacco Use Types Packs/Day Years [...] Comments Blood Pressure 107/51 05/24/2023 11:33 AM WARD SUPERVISOR Pulse 62 05/24/2023 11:33 AM WARD SUPERVISOR Temperature 36.6 ??C (97.9 ??F) 05/24/2023 11:[address] Respiratory Rate 16 09/21/2022 8:18 AM CDT Oxygen Saturation 92% 08/08/2022 10:30 AM WARD SUPERVISOR Inhaled Oxygen Concentration - - Weight 51 kg (112 lb 7 oz) 05/24/2023 11:[address] Height 159.5 cm (5' 2.8) 09/21/2022 8:18 AM CDT Body Mass Index 20.05 09/21/2022 8:18 AM CDT Plan of Treatment Upcoming Encounters Date Type Department Care Team (Latest Contact Info) Description 06/29/2023 11:00 AM WARD SUPERVISOR Appointment Department of Radiation Oncology in [place], [place] [address] [place] [address] Clemente Feng M.D. [address] [place] [address] 08/08/2023 10:30 AM WARD SUPERVISOR Comprehensive Visit Department of Endocrinology in [place], [place] [address] [place] [phone] Tomer Hinson M.D. [address] [place] [address] Discharge Disposition: Home or Self Care Procedures Procedure Name Priority Date/Time Associated Diagnosis Comments ARIA DAILY TREATMENT INFORMATION Routine 05/24/2023 12:14 PM WARD SUPERVISOR ARIA DAILY TREATMENT INFORMATION Routine 05/23/2023 11:49 AM WARD SUPERVISOR ARIA DAILY TREATMENT INFORMATION Routine 05/22/2023 11:28 AM WARD SUPERVISOR ARIA DAILY TREATMENT INFORMATION Routine 05/19/2023 1:52 PM WARD SUPERVISOR ARIA DAILY TREATMENT INFORMATION Routine 05/18/2023 4:15 PM WARD SUPERVISOR INITIAL RAD ONC TREATMENT PLANNING CT SIMULATION Routine 05/15/2023 3:00 PM WARD SUPERVISOR 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) OUTSIDE NM PET Routine 05/05/2023 9:20 AM WARD SUPERVISOR from Last 3 Months Results * Aria Daily Treatment Information (05/24/2023 12:14 PM WARD SUPERVISOR) Only the most recent of5 resultswithin the time period is included. Course ID [id number] GAMING ARIA Course Start Date 3 15:45 WARD SUPERVISOR GAMING ARIA First Treatment Date 3 16:13 WARD SUPERVISOR GAMING ARIA Last Treatment Date 3 12:14 WARD SUPERVISOR GAMING ARIA Treatment Elapsed Days 6 GAMING ARIA Reference Point [id number] GAMING ARIA Dosage Given to Date cGy 1999 GAMING ARIA Session Dosage Given 400 GAMING ARIA Plan ID [id number] GAMING ARIA Fractions Treated to Date 5 GAMING ARIA Planned Total Fractions 5 GAMING ARIA Prescribed Dose Per Fraction 400 GAMING ARIA Prescription Dose in cGy 1999 GAMING ARIA Plan Primary Reference Point [id number] GAMING ARIA 05/24/2023 12:1 4 PM WARD SUPERVISOR Provider Not In System RADIATION ONCOLOG Y ORDERABLES AMBERLY RUFFIN na * Initial Rad Onc Treatment Planning CT Simulation (05/15/2023 3:00 PM WARD SUPERVISOR) Narrative [facility] - 05/15/2023 3:00 PM WARD SUPERVISOR Parisa Sexton, RTT ? 05/15/2023 ??3:18 PM Initial Rad Onc Treatment Planning CT Simulation Performed by: Clemente Feng M.D. Authorized by: Clemente Feng M.D. ?? Clemente Feng M.D. RADIATION ONCOLOGY ORDERABLES AMBERLY RUFFIN na * PET skull to mid thigh-Outside NM Pet (05/05/2023 9:20 AM WARD SUPERVISOR) Narrative [facility] - 05/10/2023 3:41 PM WARD SUPERVISOR This order has been created and auto-finalized to support the import of outside images. If available, original interpretation can be found on the Media Tab in Chart Review, in Document Viewer, or as an image in QREADS. If a re-interpretation or overread is required please follow defined workflow. ?? Provider Not In System IMG NM PROCEDURES [facility] NA from Last 3 Months Care Teams Skilled Nursing Facilities Professional Relationship Specialty Start Date End Date Suhail Burrows M.B.B.S., MChika. [address] [place] [address] [place] [phone] PCP - General Family Medicine 06/09/22
--- OUTSIDE RECORDS SUMMARY | 2023-06-26 09:10 | XMS_ITS | Encounter Summary ---
Author Name Unknown Organization [facility] Address [address] [place] [address] Care Team Providers Care Front Office Coordinator Name Role Phone Suhail Burrows M.D. Primary Care Allan fernandes Reason for Visit * Radiation Therapy (Routine) - Closed Specialty Diagnoses / Procedures Referred By Yelena t Referred To Contact Diagnoses 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) Procedures Prior Auth Rad Tx [place] IMRT COMPLEX IMRT Clemente Feng M.D. [address] [place] [address] [facility] Referral ID Status Reason Start Date Expiration Date Visits Re quested Visits Authorized [id number] Closed 05/18/2023 05/11/2024 5 5 Encounter Details Date Type Department Care Team (Latest Contact Info) Description 05/22/2023 11:06 AM LIME PLANT OPERATOR - 05/22/2023 11:59 PM [facility] Hospital Encounter Department of Radiation Oncology in [place], [place] [address] [place] [phone] Clemente Feng M.D. [address] [place] [phone] Discharge Disposition: Home or Self Care Social [...] (Latest Contact Info) Description 06/29/2023 11:00 AM LIME PLANT OPERATOR Appointment Department of Radiation Oncology in [place], [place] [address] [place] [phone] Clemente Feng M.D. [address] [place] [address] 08/08/2023 10:30 AM LIME PLANT OPERATOR Comprehensive Visit Department of Endocrinology in [place], [place] [address] [place] [phone] Tomer Hinson M.D. [address] [place] [phone] Discharge Disposition: Home or Self Care documented as of this encounter Visit Diagnoses Not on filedocumented in this encounter Care Teams Front Office Coordinator Relationship Specialty Start Date End Date Suhail Burrows M.B.B.S., M.D. [address] [place] [address] [place] [phone] PCP - General Family Medicine 06/09/22 documented as of this encounter
--- OUTSIDE RECORDS SUMMARY | 2023-06-26 09:10 | XMS_ITS | Encounter Summary ---
Author Name Unknown Organization [facility] Address [address] [place] [address] Care Team Providers Care Pit Furnace Operator Name Role Phone Suhail Burrows M.D. Primary Care Allan fernandes Reason for Visit * Radiation Therapy (Routine) - Closed Specialty Diagnoses / Procedures Referred By Yelena t Referred To Contact Diagnoses 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) Procedures Prior Auth Rad Tx [place] IMRT COMPLEX IMRT Clemente Feng M.D. [address] [place] [address] [facility] Referral ID Status Reason Start Date Expiration Date Visits Re quested Visits Authorized [id number] Closed 05/18/2023 05/11/2024 5 5 Encounter Details Date Type Department Care Team (Latest Contact Info) Description 05/19/2023 1:39 PM SAMPLE TAKER OPERATOR - 05/19/2023 11:59 PM SAMPLE TAKER OPERATOR Hospital Encounter Department of Radiation Oncology in [place], [place] [address] [place] [phone] Clemente Feng M.D. [address] [place] [phone] Discharge Disposition: Home or Self Care Social [...] (Latest Contact Info) Description 06/29/2023 11:00 AM SAMPLE TAKER OPERATOR Appointment Department of Radiation Oncology in [place], [place] [address] [place] [phone] Clemente Feng M.D. [address] [place] [address] 08/08/2023 10:30 AM SAMPLE TAKER OPERATOR Comprehensive Visit Department of Endocrinology in [place], [place] [address] [place] [phone] Tomer Hinson M.D. [address] [place] [phone] Discharge Disposition: Home or Self Care documented as of this encounter Visit Diagnoses Not on filedocumented in this encounter Care Teams Pit Furnace Operator Relationship Specialty Start Date End Date Suhail Burrows M.B.B.S., M.D. [address] [place] [address] [place] [phone] PCP - General Family Medicine 06/09/22 documented as of this encounter
--- OUTSIDE RECORDS SUMMARY | 2023-06-26 09:11 | XMS_ITS | Encounter Summary ---
Author Name Unknown Organization [facility] Address [address] [place] [address] Care Team Providers Care Slimer Name Role Phone Suhail Burrows M.D. Primary Care P dena Encounter Details Date Type Department Care Team (Late st Contact Info) Description 03/01/2023 Orders Only Department of Radiation Oncology in [place], [place] [address] [place] [address] Yusra Love APRN, C.N.P., D.N.P. [address] [place] [address] Social History Tobacco Use Types Packs/Day Years [...] on file documented as of this encounter Plan of Treatment Upcoming Encounters Date Type Department Care Team (Latest Contact Info) Description 06/29/2023 11:00 AM SPOTTER DRIVER Appointment Department of Radiation Oncology in [place], [place] [address] [place] [phone] Clemente Feng M.D. [address] [place] [address] 08/08/2023 10:30 AM SPOTTER DRIVER Comprehensive Visit Department of Endocrinology in [place], [place] [address] [place] [phone] Tomer Hinson M.D. [address] [place] [phone] Discharge Disposition: Home or Self Care documented as of this encounter Visit Diagnoses Not on filedocumented in this encounter Care Teams Slimer Relationship Specialty Start Date End Date Suhail Burrows M.B.BHectorS., M.Annette. [address] [place] [phone] PCP - General Family Medicine 06/09/22 documented as of this encounter
--- OUTSIDE RECORDS SUMMARY | 2023-06-26 09:11 | XMS_ITS | Encounter Summary ---
Author Name Unknown Organization [facility] Address [address] [place] [address] Care Team Providers Care Patient Safety Coordinator Name Role Phone Suhail Burrows M.D. 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 [address] [place] [address] [facility] Referral ID Status Reason Start Date Expiration Date Visits Re quested Visits Authorized [id number] Closed 02/02/2023 02/02/2024 1 1 Encounter Details Date Type Department Care Team (Latest Contact Info) Description 02/17/2023 7:18 AM CDT - 02/17/2023 11:59 PM CDT Hospital Encounter Department of Radiology in [place], [place] [address] [place] [address] Sowmya Johns P.A.-C., P.A. 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 [address] [place] [address] 08/08/2023 10:30 AM MAIL PROCESSOR Comprehensive Visit Department of Endocrinology in [place], [place] [address] [place] [phone] Tomer Hinson M.D. 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 Less conspicuous enhancing lesions in bilateral posterior frontal, posterior temporal and occipital lobes allowing for differences in technique. No evidence of new enhancing brain lesions. Narrative 02/17/2023 9:16 AM CDT EXAM: MR BRAIN WITHOUT AND WITH IV CONTRAST COMPARISON:MRI brain, 11/22/2022. FINDINGS: Redemonstration of multiple small foci of enhancing brain lesions in bilateral cerebellar hemisphere without significant interval change. Unchanged 7 mm enhancing brain lesion in the left brachium pontis. Redemonstration of diffuse small enhancing lesions in bilateral cerebral hemisphere. Some of the lesions in bilateral posterior frontal lobes, bilateral posterior temporal lobes and occipital lobes are less conspicuous on the current exams. No new lesions are identified. No midline shift. No evidence of acute infarct or hemosiderin deposition in the brain parenchyma. Intact intracranial arterial flow voids. Bilateral orbits, paranasal sinuses and mastoid air cells are unremarkable. Procedure Note Kvng Munguia M.B., Beronica Pathak. - 02/17/2023 EXAM: MR BRAIN WITHOUT AND WITH IV CONTRAST COMPARISON:MRI brain, 11/22/2022. FINDINGS: Redemonstration of multiple small foci of enhancing brainlesions in bilateral cerebellar hemisphere without significant interval change. Unchanged 7 mm enhancingbrain lesion in the left brachium pontis. Redemonstration of diffuse small enhancing lesions inbilateral cerebral hemisphere. Some of the lesions in bilateral posterior frontal lobes,bilateral posterior temporal lobes and occipital lobes are less conspicuous on the current exams. Nonew lesions are identified. No midline shift. No evidence of acute infarct or hemosiderin depositionin the brain parenchyma. Intact intracranial arterial flow voids. Bilateral orbits, paranasalsinuses and mastoid air cells are unremarkable. IMPRESSION: -No significant interval change in the diffuse brain metastasis in theinfratentorial brain and most areas of the supratentorial brain since the prior study from 11/22/2022.Less conspicuous enhancing lesions in bilateral posterior frontal, posterior temporal and occipitallobes allowing for differences in technique. No evidence of new enhancing brain lesions. Sowmya Johns P.A.-C., P.A. 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 Given 02/17/2023 8:40 AM CDT 5.6 mL sodium chloride 0.9 % injection 1-250 mL 1-250 mL, intravenous, Once in imaging, line care, Starting on Mon02/17/23 at 0735, For 1 dose Given 02/17/2023 8:40 AM CDT 10 mL documented in this encounter Care Teams Patient Safety Coordinator Relationship Specialty Start Date End Date Suhail Burrows M.B.B.SHector, M.Annette. [address] [place] [address] [place] [address] PCP - General Family Medicine 06/09/22 documented as of this encounter
--- OUTSIDE RECORDS SUMMARY | 2023-06-26 09:11 | XMS_ITS | Encounter Summary ---
Author Name Unknown Organization [facility] Address [address] [place] [address] Care Team Providers Care Saw Boss Name Role Phone Suhail Burrows M.D. Primary Care P dena Reason for Visit * Radiation Therapy (Routine) - Authorized Specialty Diagnoses / Procedures Referred By Contac t Referred To Contact Diagnoses Secondary Malignant Neoplasm Bone (HCC) Procedures Prior Auth Rad Tx MA RADTN TX DEL >=1 MEV COMPLEX 3D Clemente Feng M.D. [address] [place] [address] [facility] [place] [address] [place] [phone] Referral ID Status Reason Start Date Expiration Date V isits Requested Visits Authorized [id number] Authorized 03/06/2023 02/23/2024 5 5 Encounter Details Date Type Department Care Team (Latest Contact Info) Description 03/08/2023 2:59 PM CDT - 03/08/2023 11:59 PM CDT Hospital Encounter Department of Radiation Oncology in [place], [place] [address] [place] [phone] Clemente Feng M.D. [address] [place] [phone] Discharge Disposition: Home or Self Care Social [...] (Latest Contact Info) Description 06/29/2023 11:00 AM PL[place]ARD[place] Appointment Department of Radiation Oncology in [place], [place] [address] [place] [address] Clemente Feng M.D. [address] [place] [address] 08/08/2023 10:30 AM PL[place] Comprehensive Visit Department of Endocrinology in [place], [place] [address] [place] [phone] Tomer Hinson M.D. [address] [place] [phone] Discharge Disposition: Home or Self Care documented as of this encounter Visit Diagnoses Not on filedocumented in this encounter Care Teams Saw Boss Relationship Specialty Start Date End Date Suhail Burrows M.B.BHectorS., M.D. [address] [place], [place] [address]JOSEFA Aldana [phone] PCP - General Family Medicine 06/09/22 documented as of this encounter
--- OUTSIDE RECORDS SUMMARY | 2023-06-26 09:11 | XMS_ITS | Encounter Summary ---
Author Name Unknown Organization [facility] Address [address] [place] [address] Care Team Providers Care Nascar Driver Name Role Phone Suhail Burrows M.D. 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 [address] [place] [address] [facility] Region Referral ID Status Reason Start Date Expiration Date V isits Requested Visits Authorized [id number] Authorized 08/19/2022 08/19/2023 10 10 Reason for Visit * Radiation Therapy (Routine) - Authorized Specialty Diagnoses / Procedures Referred By Contac t Referred To Contact Diagnoses Secondary Malignant Neoplasm Brain (HCC) 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) Procedures Management Visit Clemente Feng M.D. [address] [place] [address] [facility] Region Referral ID Status Reason Start Date Expiration Date V isits Requested Visits Authorized [id number] Authorized 08/19/2022 08/19/2023 10 10 Encounter Details Date Type Department Care Team (Latest Contact Info) Description 03/08/2023 2:59 PM CDT - 03/08/2023 3:47 PM CDT Hospital Encounter Department of Radiation Oncology in [place], [place] [address] [place] [address] Clemente Feng M.D. [address] [place] [address] Secondary Malignant Neoplasm Brain (HCC); Malignant Neoplasm Of Lung Lower Lobe Or [...] Progress Notes * Clemente Feng M.D. - 03/08/2023 4:00 PM CDT SUBJECTIVE REASON FOR VISIT Evaluation for side effects while receiving radiation treatment for 1. Secondary Malignant Neoplasm Brain (HCC) 2. 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) HISTORY OF PRESENT ILLNESS Miss Sandrine Deleon is a 62 y.o. 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 Treatment Course: 2xHumerus Plan ID Fractions Dose / Fraction (cGy) Dose Treated (cGy) Dose Planned (cGy) First Treatment Last Treatment Elapsed Days [id number] 800 800 03/08/2023 03/08/2023 0 Course Summary 03/08/2023 03/08/2023 0 The patient reports she is feeling well she denies any pain or discomfort. OBJECTIVE There were no vitals taken for this visit. PHYSICAL EXAM General: Alert and oriented in no apparent distress. She was seen at the treatment machine with thechaperone of the therapist MICHAEL Oates. ASSESSMENT / PLAN #1 Stage IVB (cT2a, [...] right proximal humerus on March 08, 2023 The patient is tolerating radiation treatment well today. She will contact us if she has a pain flare that does not respond to scheduled Tylenol alternating with ibuprofen. She sees Dr. Julian next week. I will leave the timing in ordering of a PET/CT scan up to Dr. Julian and review those images when they are available. We will consider radiotherapy to the mediastinum at that time. I will also leave it up to Dr. Julian to order subsequent brain MRIs. The patient verbalized satisfaction with this plan. Signed by: Clemente Feng M.D. 03/08/23 3:47 PM CDT [facility] [address] [place] [address] documented in this encounter Miscellaneous Notes * Addendum Note - Jennifer Alba, C.N.A. - 03/08/2023 3:47 PM CDTEncounter addended by: Jennifer Alba C.NRay on: 03/09/2023 7:02 AM Actions taken: Letter saved documented in this encounter Plan of Treatment Upcoming Encounters Date Type Department Care Team (Latest Contact Info) Description 06/29/2023 11:00 AM WINE FERMENTER Appointment Department of Radiation Oncology in [place], [place] [address] [place] [address] Clemente Feng M.D. [address] [place] [address] 08/08/2023 10:30 AM WINE FERMENTER Comprehensive Visit Department of Endocrinology in [place], [place] [address] [place] [phone] Tomer Hinson M.D. [address] [place] [address] Discharge Disposition: Home or Self Care Scheduled Orders Name Type Priority Associated Diagnoses Orde r Schedule Management Visit Radiation Oncology Routine Secondary Malignant Neoplasm Brain (HCC) 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) Once for 1 Occurrences starting 03/08/2023 until 03/08/2023 documented as of this encounter Visit Diagnoses Diagnosis Secondary Malignant Neoplasm Brain (HCC) 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) documented in this encounter Care Teams Nascar Driver Relationship Specialty Start Date End Date Suhail Burrows M.B.B.S., MChika. [address] [place] [phone] PCP - General Family Medicine 06/09/22 documented as of this encounter
--- OUTSIDE RECORDS SUMMARY | 2023-06-26 09:11 | XMS_ITS | Encounter Summary ---
Author Name Unknown Organization [facility] Address [address] [place] [address] Care Team Providers Care Sweeper Brush Maker Machine Name Role Phone Suhail Burrows M.D. Primary Care P dena Reason for Referral * MRI/CAT/PET Scan (Routine) - Closed Specialty Diagnoses / Procedures Referred By Yelena griffin Referred To Contact Radiology Diagnoses 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) Secondary Malignant Neoplasm Brain (HCC) Procedures MR Brain without and with IV Contrast Sowmya Johns P.A.-C., P.A. [address] [place] [address] [facility] Referral ID Status Reason Start Date Expiration Date Visits Re quested Visits Authorized [id number] Closed 02/02/2023 02/02/2024 1 1 * MRI/CAT/PET Scan (Routine) - Closed Specialty Diagnoses / Procedures Referred By Contac t Referred To Contact Diagnoses 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) Secondary Malignant Neoplasm Brain (HCC) Procedures PET CT Skull to Thigh FDG Sowmya Johns P.A.-C., P.A. [address] [place] [address] [facility] [address] [place] [address] Referral ID Status Reason Start Date Expiration Date Visits Re quested Visits Authorized [id number] Closed 02/02/2023 02/02/2024 1 1 Encounter Details Date Type Department Care Team (Late st Contact Info) Description 02/02/2023 Orders Only Department of Oncology in [place], [place] [address] [place] [phone] Sowmya Johns P.A.-C., P.A. [address] [place] [phone] 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) (Primary Dx); Secondary Malignant Neoplasm Brain (HCC) Social History Tobacco Use Types Packs/Day [...] (Latest Contact Info) Description 06/29/2023 11:00 AM JAVA WEB USER INTERFACE DEVELOPER Appointment Department of Radiation Oncology in [place], [place] [address] [place] [address] Clemente Feng M.D. [address] [place] [address] 08/08/2023 10:30 AM JAVA WEB USER INTERFACE DEVELOPER Comprehensive Visit Department of Endocrinology in [place], [place] [address] [place] [phone] Tomer Hinson M.D. [address] [place] [address] Discharge Disposition: Home or Self Care documented as of this encounter Results * MR Brain without [...] are unremarkable. Procedure Note Kvng Munguia M.B., Lawson, MChika. - 02/17/2023 EXAM: MR BRAIN WITHOUT AND [...] No evidence of new enhancing brain lesions. Clint Oneil P.A.-C. IMSiddharth MRI [place] OCEDURES * PET CT Skull to Thigh FDG (02/14/2023 1:52 PM CDT) Anatomical Region Laterality Modality Body, Nuclear Medicine PET R ST LOS, PET ARZ LOS, Nuclear Medicine PET FLA LOS, Nuclear Medicine N/A Positron Emission Tomography (PET) 02/14/2023 2:14 PM CDT Impressions 02/14/2023 2:43 PM CDT 1. ??Overall stable metabolic uptake in the left lower lobe malignancy, left hilar and suprahilar lymphadenopathy, right upper lobe hypermetabolic nodule and multifocal osseous sclerotic lesions. 2. ??Mild interval increased size and hypermetabolic uptake in the right subcarinal/infrahilar lymphadenopathy. 3. ??Interval resolution of previously noted small left-sided pleural effusion. Narrative 02/14/2023 2:43 PM CDT EXAM: PET CT SKULL TO THIGH FDG COMPARISON: FDG PET/CT, 08/05/2022 and 12/27/2022. RADIOPHARMACEUTICAL/MEDS: Route: intravenous fludeoxyglucose F 18 injection RETIREMENT (FDG F-18),13.4 millicurie TECHNIQUE: F-[address] scan was performed from the mid calvarium through the upper thighs with CT fusion imaging for attenuation correction, anatomic coregistration, and respiratory gating only. Serum glucose at time of F-18 FDG injection: 98 mg/dL. Uptake time: 70 minutes following injection in the left antecubital fossa. The patient reports no recent vaccinations. FINDINGS: Physiologic mediastinal blood pool activity: Max SUV of 1.5. Physiologic liver parenchymal activity: Max SUV of 2.5. HEAD AND NECK: No gross abnormal metabolic uptake of tracer in the brain parenchyma is noted, however, MRI with contrast is more sensitive for detection of most brain lesions.There is no FDG-avid disease or hypermetabolic lymphadenopathy in the neck. CHEST: No change in the size and FDG uptake in the 1 cm right upper lobe solid nodule with SUV max of 2. No significant change in the size and hypermetabolic uptake in the left lower lobe mass with SUV max of 3.8 (versus SUV max of 3.4 on 12/27/2022). Previously noted small left-sided pleural effusion has resolved. No change in the hypermetabolic left hilar and left suprahilar lymphadenopathy with SUV max of 6.3 (versus SUV max of 6.5 on 12/27/2022). Increased size and FDG uptake in the right subcarinal/infrahilar lymphadenopathy which measures up to 1.2 cm short axis diameter with SUV max of 6.8 (versus 9 mm short axis diameter with SUV max of 2.8 on 12/27/2022). Moderate to advanced lung emphysema. ABDOMEN/PELVIS: Physiologic tracer distribution throughout the gastrointestinal and genitourinary tracts is noted. There is no hypermetabolic lymphadenopathy, and no FDG-avid disease. MUSCULOSKELETAL: Unchanged hypermetabolic uptake in the scattered sclerotic metastatic lesions in the axial and appendicular skeleton, including pronounced FDG uptake in the right humeral head, left L5, and bilateral acetabula sclerotic lesions. Healing left seventh posterolateral rib fracture. No new FDG avid bone lesion. Procedure Note Kvng Munguia M.B., Lawson MNata - 02/14/2023 EXAM: PET CT SKULL TO THIGH FDG COMPARISON: FDG PET/CT, 08/05/2022 and 12/27/2022. RADIOPHARMACEUTICAL/MEDS: Route: intravenous fludeoxyglucose F 18 injection RETIREMENT (FDG F-18),13.4 millicurie TECHNIQUE: F-[address] scan was performed from the mid calvarium through theupper thighs with CT fusion imaging for attenuation correction, anatomic coregistration, andrespiratory gating only. Serum glucose at time of F-18 FDG injection: 98 mg/dL. Uptake time: 70 minutes following injection in the left antecubitalfossa. The patient reports no recent vaccinations. FINDINGS: Physiologic mediastinal blood pool activity: Max SUV of 1.5. Physiologic liver parenchymal activity: Max SUV of 2.5. HEAD AND NECK: No gross abnormal metabolic uptake of tracer in the brainparenchyma is noted, however, MRI with contrast is more sensitive for detection of most brainlesions.There is no FDG-avid disease or hypermetabolic lymphadenopathy in the neck. CHEST: No change in the size and FDG uptake in the 1 cm right upper lobesolid nodule with SUV max of 2. No significant change in the size and hypermetabolic uptake in theleft lower lobe mass with SUV max of 3.8 (versus SUV max of 3.4 on 12/27/2022). Previously notedsmall left- sided pleural effusion has resolved. No change in the hypermetabolic left hilar and leftsuprahilar lymphadenopathy with SUV max of 6.3 (versus SUV max of 6.5 on 12/27/2022).Increased size and FDG uptake in the right subcarinal/infrahilar lymphadenopathy which measuresup to 1.2 cm short axis diameter with SUV max of 6.8 (versus 9 mm short axis diameter with SUV maxof 2.8 on 12/27/2022). Moderate to advanced lung emphysema. ABDOMEN/PELVIS: Physiologic tracer distribution throughout thegastrointestinal and genitourinary tracts is noted. There is no hypermetabolic lymphadenopathy, and noFDG-avid disease. MUSCULOSKELETAL: Unchanged hypermetabolic uptake in the scatteredsclerotic metastatic lesions in the axial and appendicular skeleton, including pronounced FDG uptake inthe right humeral head, left L5, and bilateral acetabula sclerotic lesions. Healing left seventhposterolateral rib fracture. No new FDG avid bone lesion. IMPRESSION: 1. Overall stable metabolic uptake in the left lower lobe malignancy,left hilar and suprahilar lymphadenopathy, right upper lobe hypermetabolic nodule and multifocalosseous sclerotic lesions. 2. Mild interval increased size and hypermetabolic uptake in the rightsubcarinal/infrahilar lymphadenopathy. 3. Interval resolution of previously noted small left-sided pleuraleffusion. Clint Oneil P.A.-C. [place] PRO CEDURES documented in this encounter Visit Diagnoses Diagnosis 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)- Primary Secondary Malignant Neoplasm Brain (HCC) 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) Secondary Malignant Neoplasm Brain (HCC) 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) Secondary Malignant Neoplasm Brain (HCC) documented in this encounter Care Teams Sweeper Brush Maker Machine Relationship Specialty Start Date End Date Suhail Burrows M.B.B.S., M.D. [address] [place] [phone] PCP - General Family Medicine 06/09/22 documented as of this encounter
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
--- OUTSIDE RECORDS SUMMARY | 2023-06-26 09:11 | XMS_ITS | Encounter Summary ---
Author Name Unknown Organization [facility] Address [address] [place] [address] Care Team Providers Care Push Bench Operator Helper Name Role Phone Suhail Burrows M.D. Primary Care P dena Reason for Referral * Radiation Therapy (Routine) - Closed Specialty Diagnoses / Procedures Referred By Philipac t Referred To Contact Diagnoses 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) Procedures Initial Rad Onc Treatment Planning CT Simulation Clemente Feng M.D. [address] [place] [address] [facility] Region Referral ID Status Reason Start Date Expiration Date Visits Re quested Visits Authorized [id number] Closed 05/12/2023 05/11/2024 1 1 IPLE RESAW OPERATOR Reason for Visit * Radiation Therapy (Routine) - Closed Specialty Diagnoses / Procedures Referred By Yelena griffin Referred To Contact Diagnoses 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) Procedures Initial Rad Onc Treatment Planning CT Simulation Clemente Feng M.D. [address] [place] [address] [facility] Region Referral ID Status Reason Start Date Expiration Date Visits Re quested Visits Authorized [id number] Closed 05/12/2023 05/11/2024 1 1 Encounter Details Date Type Department Care Team (Latest Contact Info) Description 05/15/2023 2:48 PM MULTIPLE RESAW OPERATOR - 05/17/2023 6:47 PM MULTIPLE RESAW OPERATOR Hospital Encounter Department of Radiation Oncology in [place], [place] [address] [place] [address] Clemente Feng M.D. [address] [place] [address] Malignant Neoplasm Of Lung Lower Lobe Or [...] 09/21/2022 09/21/2023 documented as of this encounter Procedure Notes * Parisa Sexton, RTT - 05/15/2023 3:00 PM CSTAssociated Order(s): Initial Rad Onc Treatment Planning CT Simulation Pre-Procedure Diagnose(s): 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) Post-Procedure Diagnose(s): 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) Initial Rad Onc Treatment Planning CT Simulation Performed by: Clemente Feng M.D. Authorized by: Clemente Feng M.D. Simulation was performed under physician supervision based on physician order in preparation for radiation therapy. Physician was immediately available to provide assistance and direction throughout the procedure. Written consent for treatment was completed or confirmed. The patient was appropriately identified and placed in the treatment position using the necessary immobilization to ensure a reproducible treatment position. Reference fernandez were placed to facilitate marking of isocenter. Area scanned:Chest Contrast used for the simulation procedure: IV Patient position:head first supine and arms up Custom immobilization: Vac-hanna Motion management: 4D CT scan Bolus: No CT guidance: Following positioning of the patient, a series of slices was obtained to be utilized in treatment planning. CT images were transferred to the [employer] treatment planning system, after a reference isocenter was determined and marked. Segmentation and treatment planning will take place prior to treatment delivery. Patient set up and imaging was appropriate and completed without incident. Project Scheduler use:No IPLE RESAW OPERATOR Associated attestation - Clemente Feng M.D. - 05/17/2023 6:47 PM MULTIPLE RESAW OPERATOR I was available for the entirety of the procedure but only present for image review. Signed by: Clemente Feng M.D. 05/17/23 6:47 PM MULTIPLE RESAW OPERATOR [facility] [place] documented in this encounter Plan of Treatment Upcoming Encounters Date Type Department Care Team (Latest Contact Info) Description 06/29/2023 11:00 AM MULTIPLE RESAW OPERATOR Appointment Department of Radiation Oncology in [place], [place] [address] [place] [address] Clemente Feng M.D. [address] [place] [address] 08/08/2023 10:30 AM MULTIPLE RESAW OPERATOR Comprehensive Visit Department of Endocrinology in [place], [place] [address] [place] [phone] Tomer Hinson M.D. [address] [place] [phone] Discharge Disposition: Home or Self Care documented as of this encounter Procedures Procedure Name Priority Date/Time Associated Diagnosis Comments INITIAL RAD ONC TREATMENT PLANNING CT SIMULATION Routine 05/15/2023 3:00 PM MULTIPLE RESAW OPERATOR 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) documented in this encounter Results * Initial Rad Onc Treatment Planning CT Simulation (05/15/2023 3:00 PM MULTIPLE RESAW OPERATOR) Narrative AMBERLY RUFFIN - 05/15/2023 3:00 PM MULTIPLE RESAW OPERATOR SaporiParisa dean R, RTT ? 05/15/2023 ??3:18 PM Initial Rad Onc Treatment Planning CT Simulation Performed by: Clemente Feng M.D. Authorized by: Clemente Feng M.D. ?? Clemente Feng M.D. RADIATION ONCOLOGY ORDERABLES Performing Organization Address City/State/[facility] Co de Phone Number AMBRELY RUFFIN na documented in this encounter Visit Diagnoses Diagnosis 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) documented in this encounter Care Teams Push Bench Operator Helper Relationship Specialty Start Date End Date Suhail Burrows M.B.B.S., M.D. [address] [place] [phone] PCP - General Family Medicine 06/09/22 documented as of this encounter
--- OUTSIDE RECORDS SUMMARY | 2023-06-26 09:11 | XMS_ITS | Encounter Summary ---
Author Name Unknown Organization [facility] Address [address] [place] [address] Care Team Providers Care Strategy Intern Name Role Phone Suhail Burrows M.D. Primary Care P dena Encounter Details Date Type Department Care Team (Late st Contact Info) Description 03/08/2023 Documentation Department of Radiation Oncology in [place], [place] [address] [place] [phone] Clemente Feng M.D. [address] [place] [address] Social History Tobacco Use Types Packs/Day Years [...] on file documented as of this encounter Miscellaneous Notes * Radiation Completion Notes - Princess Ruiz RHectorN. - 03/08/2023 11:59 PM CDT DIAGNOSIS: 1. 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 Secondary Malignant Neoplasm Bone (HCC) Attending Physician: Clemente Feng M.D. [id number]) Treatment Intent: Palliative Concomitant Therapy: Pembrolizumab Single Plan Treatment Course: 2xHumerus Plan ID Fractions Dose / Fraction (cGy) Dose Treated (cGy) Dose Planned (cGy) First Treatment Last Treatment Elapsed Days [id number] 800 800 03/08/2023 03/08/2023 0 Course Summary 03/08/2023 03/08/2023 0 Radiation Modality: Photons CLINICAL SUMMARY Miss Sandrine Deleon completed radiation treatment as planned without interruptions. The course of treatment was tolerated well. The patient experienced no toxicities during radiation treatment. TREATMENT RESPONSE: Response to treatment will be determined by post-treatment imaging and/or laboratory work. RECOMMENDED FOLLOW UP: Primary Medical Oncologist. Follow up will be with Dr. Julian next week. We will leave the timing and ordering of PET/CT scan up to Dr. Julian and review those images once theyare available. We will consider radiotherapy to the mediastinum at that time. Signed by: Princess Ruiz R.N., 03/20/2023 2:13 PM CDT [facility] [address] [place] [address] documented in this encounter Plan of Treatment Upcoming Encounters Date Type Department Care Team (Latest Contact Info) Description 06/29/2023 11:00 AM FASHION COORDINATOR Appointment Department of Radiation Oncology in [place], [place] [address] [place] [address] Clemente Feng M.D. [address] [place] [address] 08/08/2023 10:30 AM FASHION COORDINATOR Comprehensive Visit Department of Endocrinology in [place], [place] [address] [place] [phone] Tomer Hinson M.D. 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 [address] [place] [phone] PCP - General Family Medicine 06/09/22 documented as of this encounter
--- OUTSIDE RECORDS SUMMARY | 2023-06-26 09:11 | XMS_ITS | Encounter Summary ---
Author Name Unknown Organization [facility] Address [address] [place] [address] Care Team Providers Care Social Media Manager Name Role Phone Suhail Burrows M.D. Primary Care P dena Encounter Details Date Type Department Care Team (Late Contact Info) Description 04/06/2023 Clinical Communication Department of Family Medicine, [facility], in [place], [place] [address] [place] [address] Suhail Burrows M.B.B.S., M.D. [address] [place] [address] Social History Tobacco Use Types Packs/Day Years [...] (Latest Contact Info) Description 06/29/2023 11:00 AM FACTORY MANAGER Appointment Department of Radiation Oncology in [place], [place] [address] [place] [phone] Clemente Feng M.D. [address] [place] [address] 08/08/2023 10:30 AM FACTORY MANAGER Comprehensive Visit Department of Endocrinology in [place], [place] [address] [place] [phone] Tomer Hinson M.D. [address] [place] [phone] Discharge Disposition: Home or Self Care documented as of this encounter Visit Diagnoses Not on filedocumented in this encounter Care Teams Social Media Manager Relationship Specialty Start Date End Date Suhail Burrows M.B.B.S., M.D. [address] [place] [phone] PCP - General Family Medicine 06/09/22 documented as of this encounter
--- OUTSIDE RECORDS SUMMARY | 2023-06-26 09:11 | XMS_ITS | Encounter Summary ---
Author Name Unknown Organization [facility] Address [address] [place] [address] Care Team Providers Care Coverer Name Role Phone Suhail Burrows M.D. Primary Care P dena Reason for Referral * Radiation Therapy (Routine) - Closed Specialty Diagnoses / Procedures Referred By Contac t Referred To Contact Diagnoses Secondary Malignant Neoplasm Bone (HCC) Procedures Initial Rad Onc Treatment Planning CT Simulation Clemente Feng M.D. [address] [place] [address] [facility] Region Referral ID Status Reason Start Date Expiration Date Visits Re quested Visits Authorized [id number] Closed 02/23/2023 02/23/2024 1 1 Reason for Visit * Radiation Therapy (Routine) - Closed Specialty Diagnoses / Procedures Referred By Contac t Referred To Contact Diagnoses Secondary Malignant Neoplasm Bone (HCC) Procedures Initial Rad Onc Treatment Planning CT Simulation Clemente Feng M.D. [address] [place] [address] [facility] Region Referral ID Status Reason Start Date Expiration Date Visits Re quested Visits Authorized [id number] Closed 02/23/2023 02/23/2024 1 1 Encounter Details Date Type Department Care Team (Latest Contact Info) Description 03/02/2023 1:57 PM CDT - 03/02/2023 5:03 PM CDT Hospital Encounter Department of Radiation Oncology in [place] [address] [place] [address] Clemente Feng M.D. [address] [place] [address] Secondary Malignant Neoplasm Bone (HCC) Social History Tobacco Use Types Packs/Day [...] as of this encounter Procedure Notes * Lorena Cerna, RTT - 03/02/2023 2:00 PM CDTAssociated Order(s): Initial Rad Onc Treatment Planning CT Simulation Pre-Procedure Diagnose(s): Secondary Malignant Neoplasm Bone (HCC) Post-Procedure Diagnose(s): Secondary Malignant Neoplasm Bone (HCC) Initial Rad Onc Treatment Planning CT Simulation Performed by: Clemente Feng M.D. Authorized by: Leenstra, Clemente L, M.D. Simulation was performed under physician supervision [...] placed to facilitate marking of isocenter. Area scanned:Head, Neck, Chest, and Upper Extremity Contrast used for the simulation procedure: None Patient position:head first supine and arms up Custom immobilization: Vac-hanna Motion management: None Bolus: No CT guidance: Following positioning of the patient, a series of slices was obtained to be utilized in treatment planning. CT images were transferred to the Eclipse treatment planning system, after a reference isocenter was determined and marked. Segmentation and treatment planning will take place prior to treatment delivery. Patient set up and imaging was appropriate and completed without incident. Display Carver use:No Associated attestation - Clemente Feng M.D. - 03/02/2023 5:03 PM CDT I was available for the entirety of the procedure but not present. Signed by: Clemente Feng M.D. 03/02/23 5:03 PM CDT [facility] [place] documented in this encounter Plan of Treatment Upcoming Encounters Date Type Department Care Team (Latest Contact Info) Description 06/29/2023 11:00 AM DESK MANAGER Appointment Department of Radiation Oncology in [place], [place] [address] [place] [address] Clemente Feng M.D. [address] [place] [address] 08/08/2023 10:30 AM DESK MANAGER Comprehensive Visit Department of Endocrinology in [place], [place] [address] [place] [phone] Tomer Hinson M.D. [address] [place] [phone] Discharge Disposition: Home or Self Care documented as of this encounter Procedures Procedure Name Priority Date/Time Associated Diagnosis Comments INITIAL RAD ONC TREATMENT PLANNING CT SIMULATION Routine 03/02/2023 2:00 PM CDT Secondary Malignant Neoplasm Bone (HCC) documented in this encounter Results * Initial Rad Onc Treatment Planning CT Simulation (03/02/2023 2:00 PM CDT) Narrative AMBERLY RUFFIN - 03/02/2023 2:00 PM CDT Lorena Cerna, RTT ? 03/02/2023 ??2:13 PM Initial Rad Onc Treatment Planning CT Simulation Performed by: Clemente Feng M.D. Authorized by: Clemente Feng M.D. ?? Clemente Feng M.D. RADIATION ONCOLOGY ORDERABLES Performing Organization Address City/State/[place]UST Co de Phone Number AMBERLY RUFFIN na documented in this encounter Visit Diagnoses Diagnosis Secondary Malignant Neoplasm Bone (HCC) documented in this encounter Care Teams Coverer Relationship Specialty Start Date End Date Suhail Burrows M.B.B.S., M.D. [address] [place] [phone] PCP - General Family Medicine 06/09/22 documented as of this encounter
--- OUTSIDE RECORDS SUMMARY | 2023-06-26 09:11 | XMS_ITS | Encounter Summary ---
Author Name Unknown Organization [facility] Address [address] [place] [address] Care Team Providers Care E Marketing Specialist Name Role Phone Suhail Burrows M.D. Primary Care Allan fernandes Reason for Visit * Appointment Request (Routine) - Closed Specialty Diagnoses / Procedures Referred By Contyeimy t Referred To Contact Radiation Oncology Diagnoses Malignant Neoplasm Of Lung Left (HCC) Lakisha Julian M.D. [address] [place] [address] Referral ID Status Reason Start Date Expiration Date Visits Re quested Visits Authorized [id number] Closed 05/11/2023 05/10/2024 1 1 Encounter Details Date Type Department Care Team (Latest Contact Info) Description 05/15/2023 1:14 PM MANAGER OF COMPENSATION - 05/17/2023 6:46 PM MANAGER OF COMPENSATION Hospital Encounter Department of Radiation Oncology in [place], [place] [address] [place] [phone] Clemente Feng M.D. 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 - 05/15/2023 2:00 PM CST SUBJECTIVE REQUESTING PROVIDER Lakisha Julian M.D. REASON FOR CONSULT 1. 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 ([id number]) HISTORY OF PRESENT ILLNESS Miss Sandrine Deleon is a 62 y.o. female with metastatic adenocarcinoma of the left lung. She completed whole-brain radiotherapy on August 30, 2022 for numerous brain metastases. She recently completed a single fraction radiation treatment to the right proximal humerus on March 08, 2023. She returns today for an opinion regarding the role of radiation therapy in the management of worsening disease to her right subcarinal/hilar lymph nodes. Her oncologic history is as follows: Oncology [...] with lung primary. MCSTP pending 08/29/2022 - 09/09/2022 Radiation Therapy Radiation Therapy Treatment Details (Noted on 08/19/2022) [...] No evidence of new enhancing brain lesions. 03/08/2023 - 03/08/2023 Radiation Therapy Single fraction radiotherapy to right humerus to a total dose of 800 cGy 05/05/2023 Critical Imaging PET-CT CONCLUSION: 1. Stable 12 mm size with interval FDG avidity right subcarinal/hilar lymph node, SUV max 10.15, previously 6.8 on 02/14/2023. 2. Relative stable size and metabolic activity right upper/left lower lobe malignancy, left hilar adenopathy and multiple sclerotic osseous lesions, including right humeral head come bilateral ribs, thoracic/lumbar vertebrae, and bony pelvis. No new lesions are identified. 05/22/2023 - Radiation Therapy Radiation Therapy Treatment Details (Noted on 05/12/2023) Site: Right Lung Technique: No technique specified Goal: Palliative Planned Treatment Start Date: 05/22/2023 INTERVAL HISTORY The patient was seen and examined today with Dr. Feng. The patient reports feeling well overall. She did not experience any pain in her right shoulder following her most recent radiation treatment. She is not experiencing any changes to her breathing. She denies any shortness of breath with exertion or difficulty breathing. She continues having very mild productive cough with phlegm. She denies any hemoptysis. She denies any fevers and her weight is stable overall. She has noticed a pressure in the center of her chest over the last several months. She feels this has not changed at all recently. She reports this comes and goes frequently and can not specify anything that aggravates it. The discomfort resolves on its own. The patient does have a h istory of prior radiation therapy, as detailed above. The patient denies a history of connective tissue disorders or inflammatory bowel disease. The patient denies any implanted devices. Her ECOG performance status is 0. REVIEW OF SYSTEMS Review of systems was negative except as documented above. PATIENT REPORTED SYMPTOM SCREEN FATIGUE (Scale: 0 = no fatigue; 10 = worst fatigue you can imagine): 3 PAIN (Scale: 0 = no pain; 10 = worst pain you can imagine): 2 OVERALL QUALITY OF LIFE (Scale: 0 = as bad as can be; 10 = as good as can be): 5 PAST MEDICAL HISTORY Past Medical History: Diagnosis [...] Smoking status: Former Packs/day: 1.00 Years: 30.00 Additional pack years: 0.00 Total pack years: 30.00 Types: Cigarettes Start date: 1992 Quit date: 08/10/2022 Years since quittin.7 Smokeless tobacco: Never Substance and Sexual Activity Alcohol use: Yes Comment: rare Drug use: Never Sexual activity: Yes Partners: Male OBJECTIVE BP (!) 143/51 (BP Location: Left arm, Patient Position: Sitting, Cuff Size: Regular) Pulse (!) 54 Temp 36.3 ??C (Temporal) Wt 50.5 kg BMI 19.85 kg/m?? PHYSICAL EXAM GENERAL: Alert and oriented in no apparent distress. Neck: Supple. Lymph: No palpable cervical, supraclavicular, infraclavicular, or axillary adenopathy. Lungs: Clear to auscultation bilaterally. Heart: Regular rate and rhythm. Normal S1 and S2. ASSESSMENT / PLAN #1 Stage IVB (cT2a, [...] 08, 2023 #6 Increase in FDG avidity to right subcarinal/hilar lymph nodes on PET-CT on May 05, 2023 It was a pleasure to meet with Sandrine and Josef today. She is doing well with no significant symptoms at this time. She did not experience any pain flare following her most recent radiation treatment to her right upper arm. We reviewed her most recent PET-CT scan which demonstrated stable disease overall but increased FDG avidity in the right subcarinal/hilar lymph nodes. She continues on [facility] Dr. Julian. Her next infusion is on Monday. We discussed the risks, benefits, and alternatives of radiotherapy in the setting of worsening disease to her right subcarinal/hilar lymph nodes. We discussed the recommendation for radiation treatment to the those areas in 5 fractions. I discussed the logistics as well as the acute and chronic side effects of radiotherapy. The acute side effects may include, but are not limited to, fatigue, shortness of breath, skin irritation, cough, pain and/or difficulty with swallowing with a rare need for hospitalization. A delayed side effect could include radiation pneumonitis or chest wall pain. Long-term side effects can be rare and may include, but not limited to, heart damage (with left-sided treatment), ulceration or narrowing of the esophagus, broken rib, hemorrhage of a blood vessel that could be fatal, spinal cord damage, chronic shortness of breath or bronchial collapse, chronic chest wall pain, or secondary malignancy. The patient was provided with a written summary of recommendations. Her questions were answered to hisverbalized satisfaction. . After discussion, the patient verbally stated that she would like to proceed with treatment. She will undergo CT simulation today. We anticipate starting radiation therapy on May 18. Patient seen in collaboration with Dr. Feng, please review his attestation for additional information. Thepatient was provided with our contact information. She [...] procedure. All questions answered and consent given. PRIMARY PROVIDER Suhail Burrows MD I personally spent 30 minutes in care of the patient today. Time includes both non face to face andface to face patient care. Signed by: Yusra Love APRN, C.NTriston, D.N.P. 05/15/2023 3:15 PM MANAGER OF COMPENSATION [facility] [address] [place] [address] GER OF COMPENSATION Associated attestation - Clemente Feng M.D. - 05/17/2023 6:45 PM MANAGER OF COMPENSATION I saw and evaluated the patient and participated in the hansen portions of the service. I reviewed thedocumentation of Yusra Love C.N.P. and agree with the findings and plan. Miss Sandrine Deleon is a 62 y.o. 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 He is well known to us from prior treatments including whole-brain radiotherapy with hippocampal avoidance completed on September 09, 2022 and single fraction radiotherapy to theright proximal humerus on March 08, 2023. Her most recent PET/CT scan on May 05, 2023 showed a mixed response to the pembrolizumab that she has been on since September. There was increased avidity in lymph nodes in the right subcarinal and hilar region but stable to improved disease in other ar eas. We are asked by Dr. Julian to evaluate the patient for radiotherapy to these areas of PET progression. Her oncologic history is well detailed in Ms. Love's note. The patient reports that she is currently feeling well. She denies any dyspnea, difficulty with swallowing, cough, or hemoptysis. Her ECOG performance status is 0. OBJECTIVE BP (!) 143/51 (BP Location: Left arm, Patient Position: Sitting, Cuff Size: Regular) Pulse (!) 54 Temp 36.3 ??C (Temporal) Wt 50.5 kg BMI 19.85 kg/m?? PHYSICAL EXAM General: Patient is awake, alert, and oriented to person, place, and time. No apparent distress. The patient is here today with her significant other, Josef. Remainder of the exam is as per Ms. Love's note. DIAGNOSTICS I reviewed the patient's pathology reports and imaging. ASSESSMENT / PLAN #1 Stage IVB (cT2a, [...] nodes on PET/CT on May 05, 2023 I had a detailed discussion with the patient and Josef regarding the risks, benefits, and alternatives of radiotherapy in this setting. I recommend treatment to the right subcarinal and hilar lymph nodes that have increased in avidity on the PET scan dose of 20 Gy in 5 fractions utilizing intensity m odulated radiotherapy (IMRT). IMRT is indicated so as to spare radiation dose to the adjacent esophagus, heart, lungs, and spinal cord. For discussion of the acute and chronic toxicities of treatment, please see Ms. Love's note. After this discussion, I provided the patient with a written summary of my recommendations. Her questions were answered to her verbalized satisfaction. The patient verbally stated that she would liketo proceed with treatment and signed the consent form. She will undergo CT simulation with IV contrast today. We will endeavor to begin treatment on Monday, May 22, 2023. My thanks to Drs. Julian and Stormy for the opportunity to participate in this patient's care. I have spent 15 minutes caring for this patient including both edxc-pt-yrad and nvh-jbex-qs-face time. Signed by: Clemente Feng M.D. 05/17/23 6:45 PM MANAGER OF COMPENSATION [facility] [place] documented in this encounter Miscellaneous Notes * Addendum Note - Jennifer Alba, C.N.A. - 05/15/2023 2:00 PM CSTEncounter addended by: Jennifer Alba C.N.A. on: 05/18/2023 10:46 AM Actions taken: Letter saved GER OF COMPENSATION documented in this encounter Plan of Treatment Upcoming Encounters Date Type Department Care Team (Latest Contact Info) Description 06/29/2023 11:00 AM MANAGER OF COMPENSATION Appointment Department of Radiation Oncology in [place], [place] [address] [place] [phone] Clemente Feng M.D. [address] [place] [address] 08/08/2023 10:30 AM MANAGER OF COMPENSATION Comprehensive Visit Department of Endocrinology in [place], [place] [address] [place] [phone] Tomer Hinson M.D. 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 [address] [place] [address] [place] [address] PCP - General Family Medicine 06/09/22 documented as of this encounter
--- OUTSIDE RECORDS SUMMARY | 2023-06-26 09:11 | XMS_ITS | Encounter Summary ---
Author Name Unknown Organization [facility] Address [address] [place] [address] Care Team Providers Care Psychiatric Nursing Assistant Name Role Phone Suhail Burrows M.D. 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 [address] [place] [address] [facility] [address] [place] [phone] Referral ID Status Reason Start Date Expiration Date Visits Re quested Visits Authorized [id number] Closed 02/02/2023 02/02/2024 1 1 Reason for Visit * MRI/CAT/PET Scan (Routine) - Closed Specialty Diagnoses / Procedures Referred By Contac t Referred To Contact Diagnoses 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) Secondary Malignant Neoplasm Brain (HCC) Procedures PET CT Skull to Thigh FDG Sowmya Johns P.A.-C., P.A. [address] [place] [address] [facility] [address] [place] [address] Referral ID Status Reason Start Date Expiration Date Visits Re quested Visits Authorized [id number] Closed 02/02/2023 02/02/2024 1 1 Encounter Details Date Type Department Care Team (Latest Contact Info) Description 02/14/2023 11:39 AM CDT - 02/14/2023 11:59 PM CDT Hospital Encounter Department of Radiology in [place], [place] [address] [place] [phone] Sowmya Johns P.A.-C., P.A. [address] [place] [address] Malignant Neoplasm Of Lung Lower [...] (Latest Contact Info) Description 06/29/2023 11:00 AM UPHOLSTERY ESTIMATOR Appointment Department of Radiation Oncology in [place], [place] [address] [place] [address] Clemente Feng M.D. [address] [place] [address] 08/08/2023 10:30 AM UPHOLSTERY ESTIMATOR Comprehensive Visit Department of Endocrinology in [place], [place] [address] [place] [phone] Tomer Hinson M.D. [address] [place] [phone] Discharge Disposition: Home or Self Care documented as of this encounter Procedures Procedure Name Priority Date/Time Associated Diagnosis Comments PET CT SKULL TO THIGH RAD - Routine (most inpatients and all outpatients) 02/14/2023 1:52 PM CDT 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) Secondary Malignant Neoplasm Brain (HCC) documented in this encounter Results * PET CT Skull to Thigh FDG [...] RADIOPHARMACEUTICAL/MEDS: Route: intravenous fludeoxyglucose F 18 injection FDC (FDG F-18),13.4 millicurie TECHNIQUE: F-18 FDG PET [...] bone lesion. Procedure Note Kvng Munguia M.B., Ivet Pathak - 02/14/2023 EXAM: PET CT SKULL TO THIGH FDG COMPARISON: FDG PET/CT, 08/05/2022 and 12/27/2022. RADIOPHARMACEUTICAL/MEDS: Route: intravenous fludeoxyglucose F 18 injection FDC (FDG F-18),13.4 millicurie TECHNIQUE: F-18 FDG PET [...] resolution of previously noted small left-sided pleuraleffusion. Sowmya Johns P.A.-C. PRay HANDY [place] PRO CEDURES documented in this encounter Visit Diagnoses Diagnosis 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) Secondary Malignant Neoplasm Brain (HCC) documented in this encounter Administered Medications Inactive Administered Medications - up to 3 most recent administrations Medication Order MAR Action Action Date Dose Rate Site fludeoxyglucose F 18 injection FDC (FDG F-18) 13.4 millicurie, intravenous, Once, On Mon02/14/23 at 1230, For 1 dose, Imaging Protocol Orders Given 02/14/2023 11:50 AM CDT 13.4 millicuries Left Antecubital documented in this encounter Care Teams Psychiatric Nursing Assistant Relationship Specialty Start Date End Date Suhail Burrows M.B.B.S., MChika. [address] [place] [phone] PCP - General Family Medicine 06/09/22 documented as of this encounter
--- OUTSIDE RECORDS SUMMARY | 2023-06-26 09:11 | XMS_ITS | Encounter Summary ---
Author Name Unknown Organization [facility] Address [address] [place] [address] Care Team Providers Care Stylist Assistant Name Role Phone Suhail Burrows M.D. Primary Care P dena Reason for Referral * Radiation Therapy (Routine) - Authorized Specialty Diagnoses / Procedures Referred By Contac t Referred To Contact Diagnoses Secondary Malignant Neoplasm Bone (HCC) Procedures Prior Auth Rad Tx CA RADTN TX DEL >=1 MEV COMPLEX 3D Clemente Feng M.D. [address] [place] [address] [facility] Radiation Oncology at [place] [address] [place] [address] Referral ID Status Reason Start Date Expiration Date V isits Requested Visits Authorized [id number] Authorized 03/06/2023 02/23/2024 5 5 * Radiation Therapy (Routine) - Authorized Specialty Diagnoses / Procedures Referred By Contac t Referred To Contact Diagnoses Secondary Malignant Neoplasm Bone (HCC) Procedures Management Visit Clemente Feng M.D. [address] [place] [address] [facility] Region Referral ID Status Reason Start Date Expiration Date V isits Requested Visits Authorized [id number] Authorized 02/23/2023 02/23/2024 10 10 * Radiation Therapy (Routine) - Closed Specialty Diagnoses / Procedures Referred By Contac t Referred To Contact Diagnoses Secondary Malignant Neoplasm Bone (HCC) Procedures Initial Rad Onc Treatment Planning CT Simulation Clemente Feng M.D. [address] [place] [address] [facility] Region Referral ID Status Reason Start Date Expiration Date Visits Re quested Visits Authorized [id number] Closed 02/23/2023 02/23/2024 1 1 * Outpatient (Routine) - Closed Specialty Diagnoses / Procedures Referred By Yelena griffin Referred To Contact Radiation Oncology Diagnoses Secondary Malignant Neoplasm Bone (HCC) Clemente Feng M.D. [address] [place] [address] [facility] Region Referral ID Status Reason Start Date Expiration Date Visits Re quested Visits Authorized [id number] Closed 02/23/2023 02/23/2024 1 1 Encounter Details Date Type Department Care Team (Late st Contact Info) Description 02/23/2023 Orders Only Department of Radiation Oncology in [place], [place] [address] [place] [phone] Yusra Love APRN, C.N.P., D.N.P. [address] [place] [phone] Secondary Malignant Neoplasm Brain (HCC) (Primary Dx); Secondary Malignant Neoplasm Bone (HCC) Social History [...] (Latest Contact Info) Description 06/29/2023 11:00 AM TIRE TECHNICIAN Appointment Department of Radiation Oncology in [place], [place] [address] [place] [address] Clemente Feng M.D. [address] [place] [address] 08/08/2023 10:30 AM TIRE TECHNICIAN Comprehensive Visit Department of Endocrinology in [place], [place] [address] [place] [phone] Tomer Hinson M.D. [address] [place] [phone] Discharge Disposition: Home or Self Care Scheduled Orders Name Type Priority Associated Diagnoses Order Schedule Management Visit Radiation Oncology Routine Secondary Malignant Neoplasm Bone (HCC) 10 Occurrences starting 02/23/2023 until 02/24/2024 Prior Auth Rad Tx Radiation Oncology Routine Secondary Malignant Neoplasm Bone (HCC) Ordered: 02/23/2023 Scheduled Referrals Name Type Priority Associated Diagnoses Order Schedule Radiation Oncology - Palliative / metastatic consult (clinic) Outpatient Referral Routine Secondary Malignant Neoplasm Bone (HCC) Expected: 02/27/2023 (Approximate), Expires: 05/25/2024 documented as of this encounter Results * Initial Rad Onc Treatment Planning CT Simulation (03/02/2023 2:00 PM CDT) Narrative [facility] - 03/02/2023 2:00 PM CDT Lorena Cerna RTT ? 03/02/2023 ??2:13 PM Initial Rad Onc Treatment Planning CT Simulation Performed by: Clemente Feng M.D. Authorized by: Clemente Feng M.D. ?? Clemente L Leenstra M.D. 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 [address] [place] [phone] PCP - General Family Medicine 06/09/22 documented as of this encounter
--- OUTSIDE RECORDS SUMMARY | 2023-06-26 09:11 | XMS_ITS | Encounter Summary ---
Author Name Unknown Organization [facility] Address [address] [place] [address] Care Team Providers Care Mine Administrator Supervisor Name Role Phone Suhail Burrows M.D. Primary Care Allan fernandes Reason for Referral * Outpatient (Routine) - Authorized Specialty Diagnoses / Procedures Referred By Contyeimy t Referred To Contact Endocrinology Diagnoses 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) Lakisha Julian M.D. [address] [place] [address] [facility] Region Referral ID Status Reason Start Date Expiration Date V isits Requested Visits Authorized [id number] Authorized 02/21/2023 02/21/2024 1 1 Encounter Details Date Type Department Care Team (Late st Contact Info) Description 02/21/2023 Orders Only Department of Oncology in [place], [place] [address] [place] [phone] Lakisha Julian M.D. [address] [place] [phone] Malignant Neoplasm Of Lung Lower Lobe Or [...] (Latest Contact Info) Description 06/29/2023 11:00 AM CERTIFIED RETINAL ANGIOGRAPHER Appointment Department of Radiation Oncology in [place], [place] [address] [place] [address] Clemente Feng M.D. [address] [place] [address] 08/08/2023 10:30 AM CERTIFIED RETINAL ANGIOGRAPHER Comprehensive Visit Department of Endocrinology in [place], [place] [address] [place] [address] Tomer Hinson M.D. [address] [place] [address] Discharge Disposition: Home or Self Care Scheduled Referrals Name Type Priority Associated Diagnoses Order Schedule Endocrinology - General consult (clinic) Outpatient Referral Routine 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) Expected: 03/07/2023 (Approximate), Expires: 05/23/2024 documented as of this encounter Visit Diagnoses Diagnosis 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)- Primary documented in this encounter Care Teams Mine Administrator Supervisor Relationship Specialty Start Date End Date Suhail Burrows M.B.BHectorSHector, MChika. [address] [place] [phone] PCP - General Family Medicine 06/09/22 documented as of this encounter
--- OUTSIDE RECORDS SUMMARY | 2023-06-26 09:11 | XMS_ITS | Encounter Summary ---
Author Name Unknown Organization [facility] Address [address] [place] [address] Care Team Providers Care Assistant Basketball Coach Name Role Phone Suhail Burrows M.D. Primary Care P dena Reason for Referral * Outpatient (Routine) - Authorized Specialty Diagnoses / Procedures Referred By Contac t Referred To Contact Radiation Oncology Clemente Feng M.D. [address] [place] [address] [facility] Region Referral ID Status Reason Start Date Expiration Date V isits Requested Visits Authorized [id number] Authorized 05/12/2023 05/11/2026 10 10 CE AUDITOR * Radiation Therapy (Routine) - Authorized Specialty Diagnoses / Procedures Referred By Contac t Referred To Contact Diagnoses 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) Procedures Management Visit Clemente Feng M.D. [address] [place] [address] [facility] Region Referral ID Status Reason Start Date Expiration Date V isits Requested Visits Authorized [id number] Authorized 05/12/2023 05/11/2024 10 10 CE AUDITOR * Radiation Therapy (Routine) - Closed Specialty Diagnoses / Procedures Referred By Contac t Referred To Contact Diagnoses 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) Procedures Prior Auth Rad Tx [place] IMRT COMPLEX IMRT Clemente Feng M.D. [address] [place] [address] [facility] Referral ID Status Reason Start Date Expiration Date Visits Re quested Visits Authorized [id number] Closed 05/18/2023 05/11/2024 5 5 CE AUDITOR * Radiation Therapy (Routine) - Closed Specialty Diagnoses / Procedures Referred By Contyeimy t Referred To Contact Diagnoses 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) Procedures Initial Rad Onc Treatment Planning CT Simulation Clemente Feng M.D. [address] [place] [address] [facility] Referral ID Status Reason Start Date Expiration Date Visits Re quested Visits Authorized [id number] Closed 05/12/2023 05/11/2024 1 1 CE AUDITOR Encounter Details Date Type Department Care Team (Late st Contact Info) Description 05/12/2023 Orders Only Department of Radiation Oncology in [place], [place] [address] [place] [address] Clemente Feng M.D. [address] [place] [phone] 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) (Primary Dx) Social History Tobacco Use Types Packs/Day Years Used Date Smoking Tobacco: Former Cigarettes 07 11 1 993 - 08/10/2022 Smokeless Tobacco: Never [...] (Latest Contact Info) Description 06/29/2023 11:00 AM OFFICE AUDITOR Appointment Department of Radiation Oncology in [place], [place] [address] [place] [phone] Clemente Feng M.D. [address] [place] [address] 08/08/2023 10:30 AM OFFICE AUDITOR Comprehensive Visit Department of Endocrinology in [place], [place] [address] [place] [phone] Tomer Hinson M.D. [address] [place] [address] Discharge Disposition: Home or Self Care Scheduled Orders Name Type Priority Associated Diagnoses Order Schedule Prior Auth Rad Tx Radiation Oncology Routine 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) Ordered: 05/12/2023 Management Visit Radiation Oncology Routine 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) 10 Occurrences starting 05/12/2023 until 05/12/2024 Scheduled Referrals Name Type Priority Associated Diagnoses Order Schedule Radiation Oncology nurse visit (clinic) Outpatient Referral Routine 10 Occurrenc es starting 05/12/2023 until 05/12/2026 documented as of this encounter Results * Initial Rad Onc Treatment Planning CT Simulation (05/15/2023 3:00 PM OFFICE AUDITOR) Narrative [facility] RUFFIN - 05/15/2023 3:00 PM OFFICE AUDITOR Parisa Sexton, RTT ? 05/15/2023 ??3:18 PM Initial Rad Onc Treatment Planning CT Simulation Performed by: Clemente Feng M.D. Authorized by: Clemente Feng M.D. ?? Clemente Feng M.D. 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 [address] [place] [address] [place] [phone] PCP - General Family Medicine 06/09/22 documented as of this encounter
--- OUTSIDE RECORDS SUMMARY | 2023-06-26 09:12 | XMS_ITS | Encounter Summary ---
Author Name Unknown Organization [facility] Address [address] [place] [address] Care Team Providers Care Engineer Of System Development Name Role Phone Suhail Burrows M.D. 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 [address] [place] [address] [facility] Referral ID Status Reason Start Date Expiration Date Visits Re quested Visits Authorized [id number] Closed 08/29/2022 08/19/2023 10 10 Encounter Details Date Type Department Care Team (Latest Contact Info) Description 09/05/2022 9:12 AM CDT - 09/05/2022 11:59 PM CDT Hospital Encounter Department of Radiation Oncology in [place], [place] [address] [place] [phone] Clemente Feng M.D. [address] [place] [phone] Discharge Disposition: Home or Self Care Social [...] Date End Date amLODIPine (NORVASC) 10 mg tabletIndications:Hype rtension Essential Primary Take 1 tablet (10 mg total) by mouth daily. 90 tablet 3 08/01/2022 09/21/2022 cyclobenzaprine (FLEXERIL) 10 mg tablet 10 mg daily as needed. 0 06/09/2022 09/21/2022 memantine (NAMENDA) 10 mg tablet Take 1 tablet (10 mg total) by mouth as directed. (Start memantine during first 3 days of RT) Week 1: 5 mg (1/2 tablet) in AM Week 2: 5 mg (1/2 tablet) in AM and 5 mg in PM Week 3: 10mg in AM and 5 mg in PM Week 4: 10mg in AM and 10 mg in PM 60 tablet 5 08/29/2022 09/21/2022 documented as of this encounter Plan of Treatment Upcoming Encounters Date Type Department Care Team (Latest Contact Info) Description 06/29/2023 11:00 AM OBIEE OBIA SOLUTION ARCHITECT Appointment Department of Radiation Oncology in [place], [place] [address] [place] [address] Clemente Feng M.D. [address] [place] [address] 08/08/2023 10:30 AM OBIEE OBIA SOLUTION ARCHITECT Comprehensive Visit Department of Endocrinology in [place], [place] [address] [place] [phone] Tomer Hinson M.D. [address] [place] [phone] Discharge Disposition: Home or Self Care documented as of this encounter Visit Diagnoses Not on filedocumented in this encounter Care Teams Engineer Of System Development Relationship Specialty Start Date End Date Suhail Burrows M.B.B.S., Beronica. [address] [place] [address] [place] [phone] PCP - General Family Medicine 06/09/22 documented as of this encounter
--- OUTSIDE RECORDS SUMMARY | 2023-06-26 09:12 | XMS_ITS | Encounter Summary ---
Author Name Unknown Organization [facility] Address [address] [place] [address] Care Team Providers Care Process Steward Name Role Phone Suhail Burrows M.D. Primary Care P dena Encounter Details Date Type Department Care Team (Latest Contact Info) Description 09/21/2022 9:40 AM CDT - 09/21/2022 11:59 PM CDT Hospital Encounter Department of Laboratory Medicine in [place], [place] [address] [place] [address] Suhail Burrows M.B.B.S., Ivet [address] [place] [address] Screening Lipid Discharge Disposition: Home or Self Care Social [...] 3 09/21/2022 09/21/2023 cyclobenzaprine (FLEXERIL) 10 mg tabletIndications:Maltaty nant Neoplasm Of Lung Lower Lobe Or Bronchus Left (HCC) Take 1 tablet (10 mg total) by mouth at bedtime. 30 tablet 1 09/21/2022 memantine (NAMENDA) 10 mg tabletIndications:Malig nant Neoplasm Of Lung Lower Lobe Or Bronchus Left (HCC) Take 1 tablet (10 mg total) by mouth 2 (two) times a day. 180 tablet 3 09/21/2022 09/21/2023 documented as of this encounter Miscellaneous Notes * Result Encounter Note - Suhail Burrows M.B.B.S., M.D. - 09/21/2022 6:55 PM CDT Cholesterol is elevated as is LDL. HDL which represents good cholesterol is not low. Elevated cholesterol raises risk of a major cardiovascular event like a heart attack or a stroke. I would recommend regular exercise and diet low in processed foods. I would also recommend a Mediterranean diet which emphasize is use of extra-strength virgin olive oil and lots of fruits and vegetables. 30 minutes of moderate physical activity daily will also be useful. documented in this encounter Plan of Treatment Upcoming Encounters Date Type Department Care Team (Latest Contact Info) Description 06/29/2023 11:00 AM ELECTRIC MOTOR WINDER Appointment Department of Radiation Oncology in [place], [place] [address] [place] [phone] Clemente Feng M.D. [address] [place] [address] 08/08/2023 10:30 AM ELECTRIC MOTOR WINDER Comprehensive Visit Department of Endocrinology in [place], [place] [address] [place] [phone] Tomer Hinson M.D. [address] [place] [address] Discharge Disposition: Home or Self Care documented as of this encounter Procedures Procedure Name Priority Date/Time Associated Diagnosis Comments LIPID PANEL, S Routine 09/21/2022 10:24 AM CDT Screening Lipid documented in this encounter Results * (ABNORMAL) Lipid Panel (09/21/2022 10:24 AM CDT) Triglycerides 114 mg/dL 09/21/2022 1:59 PM CDT OWAT Comment: ----REFERENCE VALUE---- Normal: <150 mg/dL Borderline High: 150-199 mg/dL High: 200-499 mg/dL Very High: > or =500 mg/dL Cholesterol, Total 281(H) mg/dL 2022 1:59 PM CDT OWAT Comment: ----REFERENCE VALUE---- Desirable: < 200 mg/dL Borderline High: 200 - 239 mg/dL High: > or = 240 mg/dL Cholesterol, LDL, Calculated 175(H) mg/dL 09/21/2022 1:59 PM CDT OWAT Comment: ----REFERENCE VALUE---- Desirable: <100 mg/dL Above Desirable: 100-129 mg/dL Borderline High: 130-159 mg/dL High: 160-189 mg/dL Very High: >=190 mg/dL ----ADDITIONAL INFORMATION---- LDL cholesterol calculated using the Neri/NIH equation. Cholesterol, HDL 87 >=50 mg/dL 09/22/19 1:59 PM CDT OWAT Cholesterol, Non-HDL, Calculated 194(H) mg/dL 09/21/2022 1:59 PM CDT OWAT Comment: ----REFERENCE VALUE---- Desirable: <130 mg/dL Above Desirable: 130-159 mg/dL Borderline High: 160-189 mg/dL High: 190-219 mg/dL Very High: > or =220 mg/dL Fasting (8 HR or more) yes 09/21/2022 1:16 PM CDT OW[facility] Blood (Blood, Venous) 09/21/2022 10:24 AM CDT 09/21/2022 1:16 PM CDT Suhail Davies M.D. LAB BLO OD ADD-ON [facility] [address] [place] [address], [facility] [place] [address] [place] [address] documented in this encounter Visit Diagnoses Diagnosis Screening Lipid documented in this encounter Care Teams Process Steward Relationship Specialty Start Date End Date Suhail Burrows M.B.B.S., M.D. [address] [place] [phone] PCP - General Family Medicine 06/09/22 documented as of this encounter
--- OUTSIDE RECORDS SUMMARY | 2023-06-26 09:12 | XMS_ITS | Encounter Summary ---
Author Name Unknown Organization [facility] Address [address] [place] [address] Care Team Providers Care Manager Of Patient Name Role Phone Suhail Burrows M.D. Primary Care Allan fernandes Reason for Referral * Outpatient (Routine) - Closed Specialty Diagnoses / Procedures Referred By Yelena griffin Referred To Contact Diagnoses Screening Mammogram Breast Cancer Procedures BI Breast Screening Bilateral with Tomosynthesis Suhail Burrows M.B.B.S., M.D. [address] [place] [address] [facility] Region Referral ID Status Reason Start Date Expiration Date Visits Re quested Visits Authorized [id number] Closed 07/19/2022 07/19/2023 1 1 Reason for Visit * Outpatient (Routine) - Closed Specialty Diagnoses / Procedures Referred By Yelena griffin Referred To Contact Diagnoses Screening Mammogram Breast Cancer Procedures BI Breast Screening Bilateral with Tomosynthesis Suhail Burrows M.B.B.S., M.D. [address] [place] [address] [facility] Region Referral ID Status Reason Start Date Expiration Date Visits Re quested Visits Authorized [id number] Closed 07/19/2022 07/19/2023 1 1 Encounter Details Date Type Department Care Team (Latest Contact Info) Description 09/26/2022 2:37 PM CDT - 09/26/2022 11:59 PM CDT Hospital Encounter Department of Radiology in [place], [place] [address] [facility] [phone] Suhail Burrows M.B.B.S., M.D. [address] [facility] [place] [phone] Screening Mammogram Breast Cancer Discharge Disposition: Home or Self Care Social [...] (Latest Contact Info) Description 06/29/2023 11:00 AM EQUINE VET Appointment Department of Radiation Oncology in [place], [place] [address] [place] [phone] Clemente Feng M.D. [address] [place] [address] 08/08/2023 10:30 AM EQUINE VET Comprehensive Visit Department of Endocrinology in [place], [place] [address] [place] [phone] Tomer Hinson M.D. [address] [place] [address] Discharge Disposition: Home or Self Care documented as of this encounter Procedures Procedure Name Priority Date/Time Associated Diagnosis Comments BI BREAST SCREENING BILATERAL WITH TOMOSYNTHESIS RAD - Routine (most inpatients and all outpatients) 09/26/2022 3:10 PM CDT Screening Mammogram Breast Cancer documented in this encounter Results * BI Breast Screening Bilateral with Tomosynthesis (09/26/2022 3:10 PM CDT) Anatomical Region Laterality Modality Breast, Breast Imaging RST L OS, Breast Imaging ARZ LOS, Breast Imaging FLA LOS Bilateral Mammography 09/27/2022 1:15 PM CDT Impressions 09/27/2022 1:17 PM CDT Negative. RECOMMENDATION: ??Annual Screening Mammogram ASSESSMENT: ??BI-RADS: 1: Negative. Narrative 09/27/2022 1:17 PM CDT EXAM: ??BI BREAST SCREENING BILATERAL WITH TOMOSYNTHESIS Current study was evaluated with a Computer Aided Detection (CAD) system. INDICATION: ??Screening mammogram. COMPARISON: ??Prior exam(s) were available and reviewed for comparison. DENSITY: ??c. The breast(s) are heterogeneously dense, which may obscure small masses. FINDINGS: ??No mammographic findings of malignancy. Procedure Note Vahid Aguilar M.D. - 09/27/2022 EXAM: BI BREAST SCREENING BILATERAL WITH TOMOSYNTHESIS Current study was evaluated with a Computer Aided Detection (CAD) system. INDICATION: Screening mammogram. COMPARISON: Prior exam(s) were available and reviewed for comparison. DENSITY: c. The breast(s) are heterogeneously dense, which may obscuresmall masses. FINDINGS: No mammographic findings of malignancy. IMPRESSION: Negative. RECOMMENDATION: Annual Screening Mammogram ASSESSMENT: BI-RADS: 1: Negative. Suhail Davies M.D. IMG BI PROCEDURES documented in this encounter Visit Diagnoses Diagnosis Screening Mammogram Breast Cancer documented in this encounter Care Teams Manager Of Patient Relationship Specialty Start Date End Date Suhail Burrows M.B.B.S., M.D. [address] [place] [phone] PCP - General Family Medicine 06/09/22 documented as of this encounter
--- OUTSIDE RECORDS SUMMARY | 2023-06-26 09:12 | XMS_ITS | Encounter Summary ---
Author Name Unknown Organization [facility] Address [address] [place] [address] Care Team Providers Care Laboratory Animal Facility Supervisor Name Role Phone Suhail Burrows M.D. Primary Care P dena Encounter Details Date Type Department Care Team (Late st Contact Info) Description 10/07/2022 Clinical Communication Department of Family Medicine, [facility], in [place], [place] [address] [place] [address] Suhail Burrows M.B.B.S., M.D. [address] [place] [address] Social History Tobacco Use Types [...] as of this encounter Miscellaneous Notes * Telephone Encounter - Nazia Bernard L.P.NHector - 10/07/2022 9:47 AM CDT SUBJECTIVE CHIEF COMPLAINT / REASON FOR CALL No chief complaint on file. PLAN The following information was provided: For now, we would just monitor. She should plan to repeat her pap next year. If still positive, I would refer to Gynecology for possible colposcopy. That is basically a biopsy of her cervix. Information/Education: patient/caller able to teach back The following references were used: provider Dr Burrows * Telephone Encounter - Suhail Burrows M.B.B.S., M.D. - 10/07/2022 8:21 AM CDT ----- Message from Robyn Mancini sent at 09/28/2022 10:38 AM CDT ----- Name of person contacted: Patient Relationship to patient: Not applicable Call back number: [phone] Sociology Research Assistant: Not applicable Information provided: Called and informed patient of results and recommendations per Dr. Stormy M.D. Patient is asking if there is anything she should do? 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 salesperson meats/patient received and understood education/information provided: Yes salesperson meats/patient agreed to the Plan of Care: Yes documented in this encounter Plan of Treatment Upcoming Encounters Date Type Department Care Team (Latest Contact Info) Description 06/29/2023 11:00 AM MEDICAL LABORATORY TECHNICAL OFFICER Appointment Department of Radiation Oncology in [place], [place] [address] [place] [phone] Clemente Feng M.D. [address] [place] [address] 08/08/2023 10:30 AM MEDICAL LABORATORY TECHNICAL OFFICER Comprehensive Visit Department of Endocrinology in [place], [place] [address] [place] [phone] Tomer Hinson M.D. [address] [place] [address] Discharge Disposition: Home or Self Care documented as of this encounter Visit Diagnoses Not on filedocumented in this encounter Care Teams Laboratory Animal Facility Supervisor Relationship Specialty Start Date End Date Suhail Burrows M.B.B.S., M.D. [address] [place] [address] Samuel SagadahocJOSEFA kennedy [phone] PCP - General Family Medicine 06/09/22 documented as of this encounter
--- OUTSIDE RECORDS SUMMARY | 2023-06-26 09:12 | XMS_ITS | Encounter Summary ---
Author Name Unknown Organization [facility] Address [address] [place] [address] Care Team Providers Care Appian Developer Name Role Phone Suhail Burrows M.D. Primary Care P dena Reason for Visit * Reason Onset Date Comments Results 09/22/2022 Encounter Details Date Type Department Care Team (Late st Contact Info) Description 09/22/2022 Clinical Communication Department of Family Medicine, [facility], in [place], [place] [address] [place] [address] Suhail Burrows M.B.B.S., M.D. [address] [place] [address] Results Social History Tobacco Use Types Packs/Day Years [...] encounter Miscellaneous Notes * Telephone Encounter - Patricia Hooper L.P.N. - 09/22/2022 8:14 AM CDT Name of person contacted: Patient Relationship to patient: Not applicable Call back number: See EMR [employer] [employer] Utility Worker: Not applicable Information provided: Lab results and recommendations per Dr. Burrows bus person dishwasher/patient received and understood education/information provided: Yes bus person dishwasher/patient agreed to the Plan of Care: Yes * Telephone Encounter - Patricia Hooper L.P.N. - 09/22/2022 8:13 AM CDT ----- Message from Keke Cuenca M.D. sent at 09/21/2022 6:55 PM CDT ----- Cholesterol is elevated as is LDL. HDL [...] (Latest Contact Info) Description 06/29/2023 11:00 AM FIRE FIGHTERS DISPATCHER Appointment Department of Radiation Oncology in [place], [place] [address] [place] [address] Clemente Feng M.D. [address] [place] [address] 08/08/2023 10:30 AM FIRE FIGHTERS DISPATCHER Comprehensive Visit Department of Endocrinology in [place], [place] [address] [place] [phone] Tomer Hinson M.D. [address] [place] [phone] Discharge Disposition: Home or Self Care documented as of this encounter Visit Diagnoses Not on filedocumented in this encounter Care Teams Appian Developer Relationship Specialty Start Date End Date Suhail Burrows M.B.B.S., M.D. [address] [place] [phone] PCP - General Family Medicine 06/09/22 documented as of this encounter
--- OUTSIDE RECORDS SUMMARY | 2023-06-26 09:12 | XMS_ITS | Encounter Summary ---
Author Name Unknown Organization [facility] Address [address] [place] [address] Care Team Providers Care Molecular Spectroscopist Name Role Phone Suhail Burrows M.D. Primary Care Allan fernandes Reason for Visit * Radiation Therapy (Routine) - Closed Specialty Diagnoses / Procedures Referred By Contyeimy t Referred To Contact Diagnoses Secondary Malignant Neoplasm Brain (HCC) 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) Procedures Prior Auth Rad Tx [place] IMRT COMPLEX Clemente Feng M.D. [address] [place] [address] [facility] Referral ID Status Reason Start Date Expiration Date Visits Re quested Visits Authorized [id number] Closed 08/29/2022 08/19/2023 10 10 Encounter Details Date Type Department Care Team (Latest Contact Info) Description 09/07/2022 9:07 AM CDT Hospital Encounter Department of Radiation Oncology in [place], [place] [address] [place] [phone] Clemente Feng M.D. [address] [place] [phone] Discharge Disposition: Home or Self Care Social [...] (Latest Contact Info) Description 06/29/2023 11:00 AM TUBE WASHER Appointment Department of Radiation Oncology in [place], [place] [address] [place] [address] Clemente Feng M.D. [address] [place] [address] 08/08/2023 10:30 AM TUBE WASHER Comprehensive Visit Department of Endocrinology in [place], [place] [address] [place] [phone] Tomer Hinson M.D. [address] [place] [phone] Discharge Disposition: Home or Self Care documented as of this encounter Visit Diagnoses Not on filedocumented in this encounter Care Teams Molecular Spectroscopist Relationship Specialty Start Date End Date Suhail Burrows M.B.B.S., M.D. [address] [place], [place] [address] [place] [phone] PCP - General Family Medicine 06/09/22 documented as of this encounter
--- OUTSIDE RECORDS SUMMARY | 2023-06-26 09:12 | XMS_ITS | Encounter Summary ---
Author Name Unknown Organization [facility] Address [address] [place] [address] Care Team Providers Care Frit Coater Name Role Phone Suhail Burrows M.D. Primary Care Allan fernandes Reason for Referral * MRI/CAT/PET Scan (Routine) - Closed Specialty Diagnoses / Procedures Referred By Contac t Referred To Contact Diagnoses Secondary Malignant Neoplasm Brain (HCC) 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) Procedures PET CT Skull to Thigh FDG Sowmya Johns P.A.-C., P.A. [address] [place] [address] 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 [address] [place] [address] [facility] Region Referral ID Status Reason Start Date Expiration Date Visits Re quested Visits Authorized [id number] Closed 11/10/2022 11/10/2023 1 1 Encounter Details Date Type Department Care Team (Latest Contact Info) Description 12/27/2022 10:02 AM CDT - 12/27/2022 11:59 PM CDT Hospital Encounter Department of Radiology in [place], [place] [address] [place] [id number] Sowmya Johns P.A.-C., P.A. 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 [address] [place] [address] 08/08/2023 10:30 AM RESEARCH LABORATORY TECHNICIAN Comprehensive Visit Department of Endocrinology in [place], [place] [address] [place] [phone] Tomer Hinson M.D. 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 ??Findings consistent with mixed metabolic response. 2. ??Interval decrease in size and FDG uptake by the dominant mass in the left lower lobe. 3. ??Interval decrease but without resolution of mediastinal and left greater than right hilar adenopathy. 4. ??While the majority of osseous metastatic lesions demonstrate interval decrease in FDG uptake, some demonstrate interval increase in size and FDG uptake, for example right proximal humerus, left sacrum, and bilateral supra-acetabular ilium. There is also a new lytic lesion right aspect of C7. 5. ??New portacaval lymphadenopathy in the upper abdomen concerning for metastatic disease. 6. ??Irregular solid nodule posterior right upper lobe now demonstrates mild FDG uptake may be metastatic nodule versus metachronous primary pulmonary malignancy. 7. ??New moderate left pleural effusion without significant FDG uptake is likely related to treatment. Narrative 12/27/2022 12:51 PM CDT EXAM: PET CT SKULL TO THIGH FDG COMPARISON: 08/05/2022 INDICATION: Metastatic non-small cell lung carcinoma. Subsequent treatment strategy. F-[address] scan was performed from the mid calvarium through the upper thighs with CT fusion imaging for attenuation correction, anatomic coregistration, and respiratory gating only. Serum glucose at time of F-18 FDG injection: 103 mg/dL. Uptake time: 60 minutes following injection. The patient reports no recent vaccinations. FINDINGS: Head/Neck: No suspicious hypermetabolic foci. Chest: Interval decrease but without resolution of FDG avid mediastinal and left greater than right hilar adenopathy. For example, left lower hilar adenopathy with moderate FDG uptake up to 5.98 SUV. Interval decrease in FDG uptake by dominant mass in the left lower lobe now with mild-moderate FDG uptake with SUV max of 3.38 on image #93. New moderate left pleural effusion without significant FDG uptake. Irregular solid nodule posterior right upper lobe subpleural in location now demonstrates mild FDG uptake with SUV max of 2.49. Abdomen/Pelvis: New FDG avid portacaval lymphadenopathy. Otherwise, no suspicious uptake. Previously seen focal increased uptake left hepatic lobe has resolved. Skeleton: Interval increase in metastatic disease right proximal humerus SUV max of 9.32. New metastatic lytic lesion right aspect of C7 on image #57 with SUV max of 5.89. Interval increase in FDG uptake about a sclerotic lesion left seventh rib laterally on image #101. The lesion also demonstrates increase in size with sclerosis/periosteal reaction. Interval decrease in FDG uptake metastatic lesion left lateral sixth rib on image #108. The lesion demonstrates increase in sclerosis in the interval. Additional sclerotic rib lesions without significant FDG uptake. Multifocal metastatic disease in the thoracic and lumbar spine with improved FDG uptake consistent with treatment response. Heterogeneous sclerotic and lytic lesion in the left sacrum demonstrates interval increase in size and FDG uptake (Max SUV of 9.53, previously 6.57. Interval increase in size and FDG uptake in a heterogeneous metastatic lesion in the right supra-acetabular ilium on image #197. Similarly, interval increase in size and FDG uptake in a heterogeneous metastatic lesion left supra-acetabular ilium on image #203. RADIOPHARMACEUTICAL/MEDS: Route: intravenous fludeoxyglucose F 18 injection SKILLED NURSING (FDG F-18),13.2 millicurie Procedure Note Bahman Diaz M.D. - 12/27/2022 EXAM: PET CT SKULL TO THIGH FDG COMPARISON: 08/05/2022 INDICATION: Metastatic non-small cell lung carcinoma. Subsequent treatmentstrategy. F-[address] scan was performed from the mid calvarium through theupper thighs with CT fusion imaging for attenuation correction, anatomic coregistration, andrespiratory gating only. Serum glucose at time of F-18 FDG injection: 103 mg/dL. Uptake time: 60 minutes following injection. The patient reports no recent vaccinations. FINDINGS: Head/Neck: No suspicious hypermetabolic foci. Chest: Interval decrease but without resolution of FDG avid mediastinaland left greater than right hilar adenopathy. For example, left lower hilar adenopathy with moderateFDG uptake up to 5.98 SUV. Interval decrease in FDG uptake by dominant mass in the left lower lobenow with mild-moderate FDG uptake with SUV max of 3.38 on image #93. New moderate left pleural effusion without significant FDG uptake. Irregular solid nodule posterior right upper lobe subpleural in locationnow demonstrates mild FDG uptake with SUV max of 2.49. Abdomen/Pelvis: New FDG avid portacaval lymphadenopathy. Otherwise, nosuspicious uptake. Previously seen focal increased uptake left hepatic lobe has resolved. Skeleton: Interval increase in metastatic disease right proximal humerusSUV max of 9.32. New metastatic lytic lesion right aspect of C7 on image #57 with SUV maxof 5.89. Interval increase in FDG uptake about a sclerotic lesion left seventh riblaterally on image #101. The lesion also demonstrates increase in size with sclerosis/periostealreaction. Interval decrease in FDG uptake metastatic lesion left lateral sixth ribon image #108. The lesion demonstrates increase in sclerosis in the interval. Additional sclerotic rib lesions without significant FDG uptake. Multifocal metastatic disease in the thoracic and lumbar spine withimproved FDG uptake consistent with treatment response. Heterogeneous sclerotic and lytic lesion in the left sacrum demonstratesinterval increase in size and FDG uptake (Max SUV of 9.53, previously 6.57. Interval increase in size and FDG uptake in a heterogeneous metastaticlesion in the right supra-acetabular ilium on image #197. Similarly, interval increase in sizeand FDG uptake in a heterogeneous metastatic lesion left supra-acetabular ilium on image#203. RADIOPHARMACEUTICAL/MEDS: Route: intravenous fludeoxyglucose F 18 injection SKILLED NURSING (FDG F-18),13.2 millicurie IMPRESSION: 1. Findings consistent with mixed metabolic response. 2. Interval decrease in size and FDG uptake by the dominant mass in theleft lower lobe. 3. Interval decrease but without resolution of mediastinal and leftgreater than right hilar adenopathy. 4. While the majority of osseous metastatic lesions demonstrate intervaldecrease in FDG uptake, some demonstrate interval increase in size and FDG uptake, for exampleright proximal humerus, left sacrum, and bilateral supra-acetabular ilium. There is also a new lyticlesion right aspect of C7. 5. New portacaval lymphadenopathy in the upper abdomen concerning formetastatic disease. 6. Irregular solid nodule posterior right upper lobe now demonstratesmild FDG uptake may be metastatic nodule versus metachronous primary pulmonary malignancy. 7. New moderate left pleural effusion without significant FDG uptake islikely related to treatment. Sowmya Johns P.A.-C. P.A. [facility] PRO CEDURES documented in this encounter Visit Diagnoses Diagnosis Secondary Malignant Neoplasm Brain (HCC) 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) documented in this encounter Administered Medications Inactive Administered Medications - up to 3 most recent administrations Medication Order MAR Action Action Date Dose Rate Site fludeoxyglucose F 18 injection SKILLED NURSING (FDG F-18) 13.2 millicurie, intravenous, Once, On Mon12/27/22 at 1045, For 1 dose, Imaging Protocol Orders Given 12/27/2022 10:10 AM CDT 13.2 millicuries Left Antecubital documented in this encounter Care Teams Frit Coater Relationship Specialty Start Date End Date Suhail Burrows M.B.B.SHector, M.Annette. [address] [place] [phone] PCP - General Family Medicine 06/09/22 documented as of this encounter
--- OUTSIDE RECORDS SUMMARY | 2023-06-26 09:12 | XMS_ITS | Encounter Summary ---
Author Name Unknown Organization [facility] Address [address] [place] [address] Care Team Providers Care Fuel Buyer Name Role Phone Suhail Burrows M.D. Primary Care P dena Reason for Referral * Specialty Diagnoses / Procedures Referred By Yelena t Referred To Contact Yusra Love APRN, C.N.PHector, D.N.P. [address] [place] [address] [facility] Referral ID Status Reason Start Date Expiration Date Visits Re quested Visits Authorized Encounter Details Date Type Department Care Team (Latest Contact Info) Description 09/02/2022 9:32 AM CDT - 09/02/2022 10:27 AM CDT Hospital Encounter Department of Radiation Oncology in [place], [place] [address] [place] [phone] Clemente Feng M.D. [address] [place] [phone] Princess Ruiz RCt [address] [place] [phone] Secondary Malignant Neoplasm Brain (HCC); Malignant Neoplasm [...] 08/29/2022 09/21/2022 documented as of this encounter Progress Notes * Princess Ruiz R.N. - 09/02/2022 10:00 AM CDT Patient was educated on side effects of radiation therapy. Their questions were answered to the best of my ability. The patient was encouraged to contact the team at any point, with questions or concerns. documented in this encounter Plan of Treatment Upcoming Encounters Date Type Department Care Team (Latest Contact Info) Description 06/29/2023 11:00 AM UNEMPLOYMENT INSURANCE HEARING OFFICER Appointment Department of Radiation Oncology in [place] [id number] [place] [address] Clemente Feng M.D. [address] [place] [address] 08/08/2023 10:30 AM UNEMPLOYMENT INSURANCE HEARING OFFICER Comprehensive Visit Department of Endocrinology in [place], [place] [address] [place] [phone] Tomer Hinson M.D. 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 [address] [place] [phone] PCP - General Family Medicine 06/09/22 documented as of this encounter
--- OUTSIDE RECORDS SUMMARY | 2023-06-26 09:12 | XMS_ITS | Encounter Summary ---
Author Name Unknown Organization [facility] Address [address] [place] [address] Care Team Providers Care Auto Service Instructor Name Role Phone Suhail Burrows M.D. Primary Care P dena Reason for Referral * Outpatient (Routine) - Closed Specialty Diagnoses / Procedures Referred By Yelena griffin Referred To Contact Dermatology Diagnoses Lesion Skin Suhail Burrows M.B.B.S., M.D. [address] [place] [phone] [facility] Referral ID Status Reason Start Date Expiration Date V isits Requested Visits Authorized [id number] Closed Specialty Services Required 09/21/2022 09/21/2023 1 1 Reason for Visit * Reason Comments Annual Exam Would like skin tags removed * Appointment Request (Routine) - Closed Specialty Diagnoses / Procedures Referred By Contac t Referred To Contact Family Medicine Referral ID Status Reason Start Date Expiration Date Visits Re quested Visits Authorized [id number] Closed 09/02/2022 09/02/2023 1 1 Encounter Details Date Type Department Care Team (Latest Contact Info) Description 09/21/2022 8:30 AM CDT Comprehensive Visit Department of Family Medicine, [facility], in [place], [place] [address] [place] [address] Suhail Burrows M.B.B.S., M.D. [address] [place] [phone] Well Adult Examination Normal (Primary Dx); Pap Smear Examination; Hypertension Essential Primary; 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); Lesion Skin Social History Tobacco Use Types Packs/Day Years [...] Sign Reading Time Taken Comments Blood Pressure 154/76 09/21/2022 8:25 AM CDT Pulse 70 09/21/2022 8:25 AM CDT Temperature 36.3 ??C (97.4 ??F) 09/21/2022 8:18 AM CD T Respiratory Rate 16 09/21/2022 8:18 AM CDT Oxygen Saturation - - Inhaled Oxygen Concentration - - Weight 56.8 kg (125 lb 5.3 oz) 09/21/2022 8:18 A M CDT Height 159.5 cm (5' 2.8) 09/21/2022 8:18 AM CDT Body Mass Index 22.35 09/21/2022 8:18 AM CDT documented in this encounter H&P Notes * Suhail Burrows M.B.B.S., MChika. - 09/21/2022 8:30 AM CDT Physical Note OBJECTIVE HISTORY OF PRESENT ILLNESS Sandrine Deleon is a 62 y.o. female who presents for an annual exam. 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 She has completed a round of radiation therapy and will be meeting with her oncologist soon. Overall, she is doing well. She also has a history of hypertension and is on amlodipine which she reports consistency with. She also has multiple skin tags on her right thigh and buttocks as she would like removed. 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 HEENT: No blurred vision, no double vision, no eye pain, no sinus problems, no hoarseness, no difficulty swallowing, no mouth sores, no diminished hearing, no ringing in ears, no enlarged glands. PULMONARY: No shortness of breath, no cough, no wheezing, no sputum, no hemoptysis. CARDIAC: No valve problems, no chest pain, no chest pressure, no rapid beating, no irregular beating, no dependent edema, pain in calves or with walking, no difficulty moving arms and legs. GI: No heartburn, no nausea, no vomiting, no stomach trouble, no constipation, no diarrhea, no blood in BMs, no change in Bms. REPRODUCTIVE: Is heterosexual , no change in sex drive or performance. : No burning/pain with urination, no difficulty starting stream, no difficulty emptying bladder, no excessive urination. MUSCULOSKELETAL: No joint pain, no joint swelling, no joint stiffness, no muscle pain, no muscle stiffness, no back pain, no back stiffness. SKIN: No skin rashes, no skin sores, no change in moles. NEURO: No significant headaches, no slurred speech, no seizures, no dizziness, no loss of consciousness, no memory loss. PSYCH: No mood change. Sleep is okay. SOCIAL HISTORY Social History Socioeconomic History Marital status: Single Spouse name: Not on file Number of children: Not on file Years of education: Not on file Highest education level: Not on file Occupational History Not on file Tobacco Use Smoking status: Former Packs/day: 1.00 Years: 30. Pack years: 30.00 Types: Cigarettes Start date: 1992 Quit date: 08/10/2022 Years since quittin.1 Smokeless tobacco: Never Substance and Sexual Activity Alcohol use: Yes Comment: rare Drug use: Never Sexual activity: Yes Partners: Male Other Topics Concern Not on file Social History Narrative Not on file Social Determinants of Health Financial Resource Strain: Not on file Food Insecurity: Not on file Transportation Needs: Not on file Physical Activity: Not on file Stress: Not on file Social Connections: Not on file Intimate Partner Violence: Not on file Housing Stability: Not on file PHYSICAL EXAMINATION Vitals: BP 154/76 (BP Location: Left arm, Patient Position: Sitting, Cuff Size: Regular) Pulse 70 Temp 36.3 ??C (Temporal) Resp 16 Ht 159.5 cm Wt 56.8 kg BMI 22.35 kg/m?? BMI= Body mass index is 22.35 kg/m??. GENERAL: Patient is in no distress. Capable of full communication without difficulty. Patient is polite and cooperative. Appropriately dressed and normal hygiene. HEENT: Normocephalic. EOMI, PERRLA, Canals patent, TMs normal. Oropharynx without lesion of mucosa.Pharyngeal rises symmetrically without exudate. NECK: No nodes, no thyromegaly. No bruit auscultated. HEART: Regular rate and rhythm. No murmurs, gallops or rubs noted. LUNGS: Clear to auscultation bilaterally. No expiratory wheeze. No accessory muscles of respirationnoted. ABDOMEN: Nontender to palpation. Non-distended. No mass. Normal bowel sounds in all 4 quadrants. PELVIS: Normal external genitalia. No vaginal discharge. Mucosa moist and well rugated. Cervix is midline. Pap smear is taken by thin-prep technology. Bimanual exam shows no adnexal fullness. No cervical motion tenderness. Anus appears normal. EXTREMITIES: No neurovascular compromise. No cyanosis, clubbing or edema. No abnormal limb length. ENDOCRINE: No purple striae, john faces or buffalo hump. NEUROLOGIC: strength and tone- normal, sensory exam- grossly normal, mentation- intact, speech- normal, reflexes- symmetric PSYCHIATRIC: Alert and oriented times 3; speech- coherent , normal rate and volume; able to articulate logical thoughts LYMPHATICS: ant. cervical- normal, post. cervical- normal SKIN: Multiple irregularly-shaped and multi colored skin lesions noted on right upper thigh and right lower buttock. ASSESSMENT / PLAN Sandrine was seen today for annual exam. Diagnoses and all orders for this visit: Well Adult Examination Normal Pap Smear Examination - ThinPrep w/HPV Co-Test Screen Hypertension Essential Primary - amLODIPine (NORVASC) 10 mg tablet; Take 1 tablet (10 mg total) by mouth daily. 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) - cyclobenzaprine (FLEXERIL) 10 mg tablet; Take 1 tablet (10 mg total) by mouth at bedtime. - memantine (NAMENDA) 10 mg tablet; Take 1 tablet (10 mg total) by mouth 2 (two) times a day. Lesion Skin - Dermatology - General consult (clinic); Future 62-year-old female with metastatic adeno carcinoma of the left lung. Patient will follow-up with oncology as scheduled. I will refer her to Dermatology for multiple irregularly-shaped skin lesions. Medications have been reviewed as well. Keke Martin M.D. documented in this encounter Miscellaneous Notes * Result Encounter Note - Suhail Burrows M.B.B.S., M.D. - 09/29/2022 1:14 PM CDT Results indicate a normal Pap screen but HPV is positive. HPV is a virus which generally leads to cervical cancer. A positive result most likely represents a new infection. Most knee infections will refer to a negative result within 6-12 months.If results sleep positive after 12 months, this might reflect an increased risk of progression to clinically relevant disease. I would recommend repeating the Pap in 1 year. * Result Encounter Note - Suhail Burrows M.B.B.S., M.D. - 09/27/2022 6:43 PM CDT Results indicate HPV is positive. HPV is a virus which generally leads to cervical cancer. A positive result most likely represents a new infection. Most infections will result in a a negative result within 6-12 months. If results remain positive after 12 months, this might reflect an increased risk of progression to clinically relevant disease. I would recommend repeating the Pap in 1 year. documented in this encounter Plan of Treatment Upcoming Encounters Date Type Department Care Team (Latest Contact Info) Description 06/29/2023 11:00 AM RN TRANSPORT Appointment Department of Radiation Oncology in [place], [place] [address] [place] [phone] Clemente Feng M.D. [address] [place] [address] 08/08/2023 10:30 AM RN TRANSPORT Comprehensive Visit Department of Endocrinology in [place], [place] [address] [place] [phone] Tomer Hinson M.D. [address] [place] [phone] Discharge Disposition: Home or Self Care Scheduled Referrals Name Type Priority Associated Diagnoses Order Schedule Dermatology - General consult (clinic) Outpatient Referral Routine Lesion Skin Expected: 09/21/2022 (Approximate), Expires: 12/22/2023 documented as of this encounter Procedures Procedure Name Priority Date/Time Associated Diagnosis Comments THINPREP W/HPV CO-TEST SCREEN Routine 09/21/2022 9:20 AM CDT Pap Smear Examination HPV WITH GENOTYPING, PCR, THINPREP Routine 09/21/2022 9:20 AM CDT documented in this encounter Results * (ABNORMAL) HPV with Genotyping, PCR, ThinPrep (09/21/2022 9:20 AM CDT) HPV with Genotyping, ThinPrep, PCR Positive(A) Negative 09/27/2022 2:43 PM CDT [facility] Comment: Positive for high risk HPV by nucleic acid amplification. Positive for one or more of the following high risk types: 16, 18, 31, 33, 35, 39, 45, 51, 52, 56, 58, 59, 66, and 68. See genotyping result. HPV High Risk type 16, PCR Negative Negative 09/27/2022 2:43 PM CDT [facility] HPV High Risk type 18/45, PCR Negative Negative 09/27/2022 2:43 PM CDT [facility] 09/21/2022 9:20 AM CDT 09/22/2022 7:31 AM CDT Suhail Davies M.D. LAB JULIUS ROBIOLOGY - GENERAL ORDERABLES [facility] [address] [place] [address] [facility] [address] [place] [address] * (ABNORMAL) ThinPrep w/HPV Co-Test Screen (09/21/2022 9:20 AM CDT) Pathologist [facility] (A) 09/28/2022 1:24 PM CDT [facility] Report electronically signed by Chantel Badillo MD I verify that I have examined all relevant slides/materials for the specimen(s) and rendered or confirmed the diagnosis. (A) 09/28/2022 1:24 PM CDT [facility] Gross Description Received specimen in a ThinPrep vial.(A) 09/28/2022 1:24 PM CDT [facility] Pap Test Source Cervical/Endocervi praveena(A) 09/28/2022 1:24 PM CDT [facility] Menstrual Status(LMP, PM, ) postmenopausal(A) 09/28/2022 1:24 PM CDT [facility] Hormone Therapy/Contracep tives none(A) 09/28/2022 1:24 PM CDT [facility] Interpretation Cervical/Endocervi praveena ??(ThinPrep): Satisfactory for Evaluation Negative for Intraepithelial Lesion or Malignancy Reactive cellular changes associated with: ? Reparative or inflammatory changes High Risk HPV: ??Positive Positive for High Risk HPV by nucleic acid amplification. Positive for one or more of the following High Risk HPV types: 16, 18, 31, 33, 35, 39, 45, 51, 52, 56, 58, 59, 66, and 68. HPV Type 16: ??Negative HPV Type 18/45: ??Negative (A) 09/28/2022 1:24 PM CDT [facility] Thin Prep Vial (Cervix/Endocerv ix) 09/21/2022 9:20 AM CDT 09/22/2022 7:31 AM CDT Suhail Davies M.D. LAB PAP PATHDX ORDERABLES Performing Organization Address City/[facility] Co de Phone Number [facility] [address] [place] [address], [facility] [address] [place] [id number] [place] [address] documented in this encounter Visit Diagnoses Diagnosis Well Adult Examination Normal- Primary Pap Smear Examination Hypertension Essential Primary 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) Lesion Skin documented in this encounter Care Teams Auto Service Instructor Relationship Specialty Start Date End Date Suhail Burrows M.B.B.S., M.D. [address] [place] [phone] PCP - General Family Medicine 06/09/22 documented as of this encounter
--- OUTSIDE RECORDS SUMMARY | 2023-06-26 09:12 | XMS_ITS | Encounter Summary ---
Author Name Unknown Organization [facility] Address [address] [place] [address] Care Team Providers Care Funeral Counselor Name Role Phone Suhail Burrows M.D. Primary Care Allan fernandes Reason for Visit * Radiation Therapy (Routine) - Closed Specialty Diagnoses / Procedures Referred By Contyeimy t Referred To Contact Diagnoses Secondary Malignant Neoplasm Brain (HCC) 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) Procedures Prior Auth Rad Tx [place] IMRT COMPLEX Clemente Feng M.D. [address] [place] [address] [facility] Referral ID Status Reason Start Date Expiration Date Visits Re quested Visits Authorized [id number] Closed 08/29/2022 08/19/2023 10 10 Encounter Details Date Type Department Care Team (Latest Contact Info) Description 09/09/2022 9:05 AM CDT - 09/09/2022 11:59 PM CDT Hospital Encounter Department of Radiation Oncology in [place], [place] [address] [place] [phone] Clemente Feng M.D. [address] [place] [phone] Discharge Disposition: Home or Self Care Social [...] Contact Info) Description 06/29/2023 11:00 AM MANAGER TALENT MANAGEMENT Appointment Department of Radiation Oncology in [place], [place] [address] [place] [address] Clemente Feng M.D. [address] [place] [address] 08/08/2023 10:30 AM MANAGER TALENT MANAGEMENT Comprehensive Visit Department of Endocrinology in [place], [place] [address] [place] [phone] Tomer Hinson M.D. [address] [place] [phone] Discharge Disposition: Home or Self Care documented as of this encounter Visit Diagnoses Not on filedocumented in this encounter Care Teams Funeral Counselor Relationship Specialty Start Date End Date Suhail Burrows M.B.B.S., Beronica. [address] [place] [address] [place] [phone] PCP - General Family Medicine 06/09/22 documented as of this encounter
--- OUTSIDE RECORDS SUMMARY | 2023-06-26 09:12 | XMS_ITS | Encounter Summary ---
Author Name Unknown Organization [facility] Address [address] [place] [address] Care Team Providers Care Track Sweeper Name Role Phone Suhail Burrows M.D. Primary Care Allan fernandes Reason for Visit * Radiation Therapy (Routine) - Closed Specialty Diagnoses / Procedures Referred By Contyeimy t Referred To Contact Diagnoses Secondary Malignant Neoplasm Brain (HCC) 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) Procedures Prior Auth Rad Tx [place] IMRT COMPLEX Clemente Feng M.D. [address] [place] [address] [facility] Referral ID Status Reason Start Date Expiration Date Visits Re quested Visits Authorized [id number] Closed 08/29/2022 08/19/2023 10 10 Encounter Details Date Type Department Care Team (Latest Contact Info) Description 09/06/2022 9:12 AM CDT - 09/06/2022 11:59 PM CDT Hospital Encounter Department of Radiation Oncology in [place], [place] [address] [place] [phone] Clemente Feng M.D. [address] [place] [phone] Discharge Disposition: Home or Self Care Social [...] (Latest Contact Info) Description 06/29/2023 11:00 AM BOAT WASHER Appointment Department of Radiation Oncology in [place], [place] [address] [place] [address] Clemente Feng M.D. [address] [place] [address] 08/08/2023 10:30 AM BOAT WASHER Comprehensive Visit Department of Endocrinology in [place], [place] [address] [place] [phone] Tomer Hinson M.D. [address] [place] [phone] Discharge Disposition: Home or Self Care documented as of this encounter Visit Diagnoses Not on filedocumented in this encounter Care Teams Track Sweeper Relationship Specialty Start Date End Date Suhail Burrows M.B.B.S., Beronica. [address] [place] [address] [place] [phone] PCP - General Family Medicine 06/09/22 documented as of this encounter
--- OUTSIDE RECORDS SUMMARY | 2023-06-26 09:12 | XMS_ITS | Encounter Summary ---
Author Name Unknown Organization [facility] Address [address] [place] [address] Care Team Providers Care Extrusion Process Operator Name Role Phone Suhail Burrows M.D. 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 [address] [place] [address] [facility] Region Referral ID Status Reason Start Date Expiration Date V isits Requested Visits Authorized [id number] Authorized 08/19/2022 08/19/2023 10 10 Reason for Visit * Radiation Therapy (Routine) - Authorized Specialty Diagnoses / Procedures Referred By Contyeimy t Referred To Contact Diagnoses Secondary Malignant Neoplasm Brain (HCC) 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) Procedures Management Visit Clemente Feng M.D. [address] [place] [address] [facility] Region Referral ID Status Reason Start Date Expiration Date V isits Requested Visits Authorized [id number] Authorized 08/19/2022 08/19/2023 10 10 Encounter Details Date Type Department Care Team (Latest Contact Info) Description 09/07/2022 9:08 AM CDT - 09/07/2022 12:57 PM CDT Hospital Encounter Department of Radiation Oncology in [place], [place] [address] [place] [phone] Antoinette Baxter M.D. [address] [place] [address] Secondary Malignant Neoplasm Brain (HCC); Malignant Neoplasm [...] Sign Reading Time Taken Comments Blood Pressure 151/67 09/07/2022 9:54 AM CDT Pulse 73 09/07/2022 9:54 AM CDT Temperature 36.1 ??C (97 ??F) 09/07/2022 9:54 AM CDT Respiratory Rate - - Oxygen Saturation - - Inhaled Oxygen Concentration - - Weight 56 kg (123 lb 7.3 oz) 09/07/2022 9:54 AM CDT Height - - Body Mass Index 22.15 08/01/2022 8:20 AM DEMAND EQUIPMENT REPAIRER documented in this encounter Medications at Time [...] as of this encounter Progress Notes * Antoinette Baxter M.D. - 09/07/2022 9:45 AM CDT ATTESTATION FOR MANAGEMENT VISIT I saw and evaluated the patient and participated in the hansen portions of the service as noted below.I reviewed the documentation of Ms. Ingrid Feng RN and agree with the findings and plan. Thepatient appears well on exam. We will continue with radiation as planned and we anticipate that shewill complete treatments this week. We anticipate that Miss Sandrine Deleon will complete radiation treatment as planned with interruptions. The course of treatment was tolerated well. Follow-up will be with her oncology team and Dr. Feng in 2-3 months. Antoinette Baxter M.D., 09/07/2022 SUBJECTIVE REASON FOR VISIT Evaluation for side effects while receiving radiation treatment for 1. Secondary Malignant Neoplasm Brain (HCC) 2. 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) SUPERVISED BY: Dr. Baxter HISTORY OF PRESENT ILLNESS Miss Sandrine Deleon is a 62 y.o. 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 Treatment Course: 1xWhBrainHA Plan ID Fractions Dose / Fraction (cGy) Dose Treated (cGy) Dose Planned (cGy) First Treatment Last Treatment Elapsed Days [id number] 300 2400 3000 08/29/2022 09/07/2022 9 Course Summary 08/29/2022 09/07/2022 9 The patient was seen and examined today with Dr. Baxter The patient reports that she is feeling well overall. She is experiencing mild fatigue. She reportsmild headaches daily. She takes Tylenol and this is helpful. She is taking Namenda. She nausea/vomiting, numbness/tingling, cognitive changes or vision/hearing changes. PATIENT REPORTED SYMPTOM SCREEN FATIGUE (Scale: 0 = no fatigue; 10 = worst fatigue you can imagine): 3 PAIN (Scale: 0 = no pain; 10 = worst pain you can imagine): 1 OVERALL QUALITY OF LIFE (Scale: 0 = as bad as can be; 10 = as good as can be): 9 OBJECTIVE BP 151/67 (BP Location: Right arm, Patient Position: Sitting, Cuff Size: Regular) Pulse 73 Temp36.1 ??C (Temporal) Wt 56 kg BMI 22.15 kg/m?? PHYSICAL EXAM General: Alert and oriented in no apparent distress. She is here with her boyfriend Josef. ASSESSMENT / PLAN #1 Stage IVB (cT2a, cN2, cM1c) metastatic adenocarcinoma of the left lower lobe of the lung with metastases to the liver, bone, and brain #2 Whole-brain radiotherapy with hippocampal avoidance initiated on August 29, 2022; anticipated completion on September 09, 2022 The patient is tolerating radiation treatment well overall. Patient had a consultation with Dr. Felipe at [facility] last week to discuss systemic therapy options. She will see her again on September 15, 2022. Patient will have a follow up visit with Dr. Feng in 2-3 months with a MRI of the brain that will be done at [facility] in coordination with other imaging ordered by . She will continue with radiation treatment as planned. She can contact our care team with anyquestions or concerns. Signed by: Ingrid Feng R.N. 09/07/2022 12:00 PM CDT documented in this encounter Plan of Treatment Upcoming Encounters Date Type Department Care Team (Latest Contact Info) Description 06/29/2023 11:00 AM DEMAND EQUIPMENT REPAIRER Appointment Department of Radiation Oncology in [address] [phone] Clemente Feng M.D. [address] [place] [address] 08/08/2023 10:30 AM DEMAND EQUIPMENT REPAIRER Comprehensive Visit Department of Endocrinology in [place], [place] [address] [place] [phone] Tomer Hinson M.D. [address] [place] [phone] Discharge Disposition: Home or Self Care Scheduled Orders Name Type Priority Associated Diagnoses Orde r Schedule Management Visit Radiation Oncology Routine Secondary Malignant Neoplasm Brain (HCC) 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) Once for 1 Occurrences starting 09/07/2022 until 09/07/2022 documented as of this encounter Visit Diagnoses Diagnosis Secondary Malignant Neoplasm Brain (HCC) 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) documented in this encounter Care Teams Extrusion Process Operator Relationship Specialty Start Date End Date Suhail Burrows M.B.B.SHector, Beronica. [address] [place] [phone] PCP - General Family Medicine 06/09/22 documented as of this encounter
--- OUTSIDE RECORDS SUMMARY | 2023-06-26 09:12 | XMS_ITS | Encounter Summary ---
Author Name Unknown Organization [facility] Address [address] [place] [address] Care Team Providers Care Bonded Structures Repairer Name Role Phone Suhail Burrows M.D. Primary Care P dena Reason for Referral * - Incomplete Specialty Diagnoses / Procedures Referred By Contac t Referred To Contact Procedures Lesion Destruction Arina Lindsay APRN, C.N.PHector [address] [place] [address] Referral ID Status Reason Start Date Expiration Date V isits Requested Visits Authorized [id number] Incomplete 11/11/2022 11/11/2023 1 1 Reason for Visit * Outpatient (Routine) - Closed Specialty Diagnoses / Procedures Referred By Contyeimy griffin Referred To Contact Dermatology Diagnoses Lesion Skin Suhail Burrows M.B.B.S., [place] [address] [place] [phone] [facility] Region Referral ID Status Reason Start Date Expiration Date V isits Requested Visits Authorized [id number] Closed Specialty Services Required 09/21/2022 09/21/2023 1 1 Encounter Details Date Type Department Care Team (Latest Contact Info) Description 11/11/2022 10:00 AM CDT Comprehensive Visit Department of Family Medicine, [facility], in [place], [place] [address] [place] [phone] Arina Lindsay APRN, C.N.P. [address] [place] [phone] Keratosis Seborrheic Inflamed (Primary Dx); Marcela Social History Tobacco Use Types Packs/Day Years [...] on file documented as of this encounter Progress Notes * Arina Lindsay APRN, C.N.P., M.S.N. - 11/11/2022 10:00 AM CDT SUBJECTIVE CHIEF COMPLAINT / REASON FOR VISIT Irritated skin tags HISTORY OF PRESENT ILLNESS Sandrine Deleon is a 62 y.o. female who presents for evaluation of irritated lesions on her right medial thigh and evaluation of a bump on her left lower eyelid. She reports that the lesions on the right medial thigh will rub and become irritated at times. Per nursing notes: Chief Complaint (Reason for visit): 2 skin tags right inner thigh How long has lesion(s) been present, any symptoms (pain, bleeding, or itching)? : +1 year, no pain,itching, or bleeding Was patient referred, self referred, or a returning derm patient? : Dr Burrows Personal or family history of skin cancer or other skin condition? : personal history of melanoma rt arm, personal and family history of other cancers Any other skin concerns today? : spot on left lower eyelid REVIEW OF SYSTEMS Constitutional, integumentary, and allergic/immunologic review of systems is negative except as otherwise remarked above or below. OBJECTIVE PHYSICAL EXAM General: Well-appearing female in no acute distress. Well groomed and dressed and answers appropriately to questions. Skin: I have examined the face and groin area, on the left lower eyelid margin there is a 1 mm white subdermal papule consistent with milia. Right Medial Thigh (2) [place] and brown stuck on verrucous scaly papule with surrounding erythema and bloody crust. ASSESSMENT / PLAN #1 Keratosis Seborrheic Inflamed The benign nature of this lesion(s) was discussed with the patient. Given the inflamed nature of this lesion(s), its treatment is medically indicated. We treated a total of 2 lesion(s) with one 20-second freeze-thaw cycle of liquid nitrogen cryotherapy. The patient tolerated the procedure well. Aftercare instructions were provided in written and verbal form to the patient. Should any of these lesions recur, the patient should return for further evaluation. #2 Milia The benign nature of the skin lesion(s) was discussed with the patient. No treatment is required. Irecommend continued observation. Should symptoms or changes develop related to this condition, I would recommend a return visit for reassessment. PATIENT EDUCATION Ready to learn, no apparent learning barriers were identified; learning preferences include listening. Explained diagnosis and treatment plan; patient expressed understanding of the content. This note represents shared documentation between the assisting nurse and the encounter provider. The content has been reviewed and edited as needed by the provider. documented in this encounter Plan of Treatment Upcoming Encounters Date Type Department Care Team (Latest Contact Info) Description 06/29/2023 11:00 AM EFFICIENCY MINER BLASTING Appointment Department of Radiation Oncology in [place], [place] [address] [place] [address] Clemente Feng M.D. [address] [place] [address] 08/08/2023 10:30 AM EFFICIENCY MINER BLASTING Comprehensive Visit Department of Endocrinology in [place], [place] [address] [place] [phone] Tomer Hinson M.D. [address] [facility] JOSEFA Rodriguez [phone] Discharge Disposition: Home or Self Care documented as of this encounter Procedures Procedure Name Priority Date/Time Associated Diagnosis Comments LESION DESTRUCTION Routine 11/11/2022 9: 55 AM CDT Keratosis Seborrheic Inflamed documented in this encounter Results * Lesion Destruction (11/11/2022 9:55 AM CDT) Narrative Arina Lindsay APRN, C.N.P., M.S.N. - 11/11/2022 9:55 AM CDT Complexity: simple ?? Destruction method: cryotherapy ?? Informed consent: discussed and consent obtained ?? Timeout: ??patient name, date of , surgical site, and procedure verified Lesion destroyed using liquid nitrogen: Yes ?? Outcome: patient tolerated procedure well with no complications ?? Post-procedure details: wound care instructions given ?? Arina Lindsay APRN, C.N.P. PROCEDURE/MINOR SURGICAL ORDERABLES documented in this encounter Visit Diagnoses Diagnosis Keratosis Seborrheic Inflamed- Primary Milia documented in this encounter Care Teams Bonded Structures Repairer Relationship Specialty Start Date End Date Suhail Burrows M.B.B.S., M.D. [address] [place] [address] [place] [phone] PCP - General Family Medicine 06/09/22 documented as of this encounter
--- OUTSIDE RECORDS SUMMARY | 2023-06-26 09:12 | XMS_ITS | Encounter Summary ---
Author Name Unknown Organization [facility] Address [address] [place] [address] Care Team Providers Care Engagement Mgr Name Role Phone Suhail Burrows M.D. Primary Care Allan fernandes Reason for Visit * Reason Onset Date Comments Results 11/30/2022 Encounter Details Date Type Department Care Team (Late st Contact Info) Description 11/30/2022 Clinical Communication Department of Radiation Oncology in [place], [place] [address] [place] [phone] Clemente Feng M.D. [address] [place] [address] Results Social History Tobacco Use Types Packs/Day [...] encounter Miscellaneous Notes * Telephone Encounter - Clemente Feng M.D. - 11/30/2022 11:14 AM CDT DIAGNOSIS 1. Secondary Malignant Neoplasm Brain (HCC) REASON FOR ENCOUNTER Telephone call. INTERVAL HISTORY Sandrine Deleon is a 62 y.o. female with the above diagnosis. 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 This reveals adecrement in all of the masses in her brain and no new masses were seen. I called and reported thisinformation to the patient. She is doing well and is asymptomatic aside from some mild headaches that respond to Tylenol. We discussed the neurologic signs and symptoms from progressive brain metastases that require prompt medical attention if she were to develop them. She agreed to contact me or her medical oncologist if any of these occur. She does see 1 of our colleagues in Medical Oncology tomorrow at [facility]. I will not schedule any formal follow-up in Radiation Oncology, nor will I order any more brain MRIs. I called and communicated this to the [facility] nurseFaustina RN, who agreed to pass this information on to the physician. Thepatient verbalized satisfaction with this plan. She was appreciative of the call. Signed by: Clemente Feng M.D. 11/30/2022 11:21 AM CDT documented in this encounter Plan of Treatment Upcoming Encounters Date Type Department Care Team (Latest Contact Info) Description 06/29/2023 11:00 AM TRAINING TECHNICIAN Appointment Department of Radiation Oncology in [place], [place] [address] [place] [address] Clemente Feng M.D. [address] [place] [address] 08/08/2023 10:30 AM TRAINING TECHNICIAN Comprehensive Visit Department of Endocrinology in [place], [place] [address] [place] [phone] Tomer Hinson M.D. [address] [place] [address] Discharge Disposition: Home or Self Care documented as of this encounter Visit Diagnoses Diagnosis Secondary Malignant Neoplasm Brain (HCC)- Primary documented in this encounter Care Teams Engagement Mgr Relationship Specialty Start Date End Date Suhail Burrows M.B.B.S., M.D. [address] [place] [address] [place]SE[place] Alvarez [phone] PCP - General Family Medicine 06/09/22 documented as of this encounter
--- OUTSIDE RECORDS SUMMARY | 2023-06-26 09:12 | XMS_ITS | Encounter Summary ---
Author Name Unknown Organization [facility] Address [address] [place] [address] Care Team Providers Care Marketing Operations Coordinator Name Role Phone Suhail Burrows M.D. Primary Care P dena Encounter Details Date Type Department Care Team (Late st Contact Info) Description 09/22/2022 Orders Only Department of Oncology in [place], [place] [address] [place] [address] Camryn Felipe M.D. [address] [place] [address] Social History Tobacco Use Types Packs/Day Years [...] (Latest Contact Info) Description 06/29/2023 11:00 AM LABEL CUTTER Appointment Department of Radiation Oncology in [place], [place] [address] [place] [address] Clemente Feng M.D. [address] [place] [address] 08/08/2023 10:30 AM LABEL CUTTER Comprehensive Visit Department of Endocrinology in [place], [place] [address] [place] [phone] Tomer Hinson M.D. [address] [place] [phone] Discharge Disposition: Home or Self Care documented as of this encounter Visit Diagnoses Not on filedocumented in this encounter Care Teams Marketing Operations Coordinator Relationship Specialty Start Date End Date Suhail Burrows M.B.BHectorSHector, MChika. [address] [place] [phone] PCP - General Family Medicine 06/09/22 documented as of this encounter
--- OUTSIDE RECORDS SUMMARY | 2023-06-26 09:12 | XMS_ITS | Encounter Summary ---
Author Name Unknown Organization [facility] Address [address] [place] [address] Care Team Providers Care Transfer Iron Operator Name Role Phone Suhail Burrows M.D. Primary Care Allan fernandes Reason for Visit * Radiation Therapy (Routine) - Closed Specialty Diagnoses / Procedures Referred By Contyeimy t Referred To Contact Diagnoses Secondary Malignant Neoplasm Brain (HCC) 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) Procedures Prior Auth Rad Tx [place] IMRT COMPLEX Clemente Feng M.D. [address] [place] [address] [facility] Referral ID Status Reason Start Date Expiration Date Visits Re quested Visits Authorized [id number] Closed 08/29/2022 08/19/2023 10 10 Encounter Details Date Type Department Care Team (Latest Contact Info) Description 09/08/2022 9:07 AM CDT - 09/08/2022 11:59 PM CDT Hospital Encounter Department of Radiation Oncology in [place], [place] [address] [place] [phone] Clemente Feng M.D. [address] [place] [phone] Discharge Disposition: Home or Self Care Social [...] (Latest Contact Info) Description 06/29/2023 11:00 AM SECURITY SOLUTIONS ARCHITECT Appointment Department of Radiation Oncology in [place], [place] [address] [place] [address] Clemente Feng M.D. [address] [place] [address] 08/08/2023 10:30 AM SECURITY SOLUTIONS ARCHITECT Comprehensive Visit Department of Endocrinology in [place], [place] [address] [place] [phone] Tomer Hinson M.D. [address] [place] [phone] Discharge Disposition: Home or Self Care documented as of this encounter Visit Diagnoses Not on filedocumented in this encounter Care Teams Transfer Iron Operator Relationship Specialty Start Date End Date Suhail Burrows M.B.B.S., Beronica. [address] [place] [address] [place] [phone] PCP - General Family Medicine 06/09/22 documented as of this encounter
--- OUTSIDE RECORDS SUMMARY | 2023-06-26 09:12 | XMS_ITS | Encounter Summary ---
Author Name Unknown Organization [facility] Address [address] [place] [address] Care Team Providers Care Manager Of Construction Name Role Phone Suhail Burrows M.D. Primary Care Allan fernandes Reason for Referral * MRI/CAT/PET Scan (Routine) - Closed Specialty Diagnoses / Procedures Referred By Yelena griffin Referred To Contact Diagnoses Secondary Malignant Neoplasm Brain (HCC) 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) Procedures PET CT Skull to Thigh FDG Sowmya Johns P.A.-C., P.A. [address] [place] [address] [facility] Region Referral ID Status Reason Start Date Expiration Date Visits Re quested Visits Authorized [id number] Closed 11/10/2022 11/10/2023 1 1 Encounter Details Date Type Department Care Team (Late st Contact Info) Description 11/10/2022 Orders Only Department of Oncology in [place], [place] [address] [place] [address] Sowmya Johns P.A.-C., P.A. [address] [place] [address] Secondary Malignant Neoplasm Brain (HCC) (Primary Dx); [...] (Latest Contact Info) Description 06/29/2023 11:00 AM SPLINE ROLLING MACHINE JOB SETTER Appointment Department of Radiation Oncology in [place], [place] [address] [place] [address] Clemente Feng M.D. [address] [place] [address] 08/08/2023 10:30 AM SPLINE ROLLING MACHINE JOB SETTER Comprehensive Visit Department of Endocrinology in [place], [place] [address] [place] [phone] Tomer Hinson M.D. [address] [place] [phone] Discharge Disposition: Home or Self Care documented as of this encounter Results * PET CT Skull [...] RADIOPHARMACEUTICAL/MEDS: Route: intravenous fludeoxyglucose F 18 injection CUSTODIAL (FDG F-18),13.2 millicurie Procedure Note Bahman Diaz [...] RADIOPHARMACEUTICAL/MEDS: Route: intravenous fludeoxyglucose F 18 injection CUSTODIAL (FDG F-18),13.2 millicurie IMPRESSION: 1. Findings consistent [...] significant FDG uptake islikely related to treatment. Clint Oneil P.A.-C. [place] PRO CEDURES documented in this encounter Visit Diagnoses Diagnosis Secondary Malignant Neoplasm Brain (HCC)- Primary 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) Secondary Malignant Neoplasm Brain (HCC) 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) documented in this encounter Care Teams Manager Of Construction Relationship Specialty Start Date End Date Suhail Burrows M.B.B.S., MChika. [address] [place] [phone] PCP - General Family Medicine 06/09/22 documented as of this encounter
--- OUTSIDE RECORDS SUMMARY | 2023-06-26 09:12 | XMS_ITS | Encounter Summary ---
Author Name Unknown Organization [facility] Address [address] [place] [address] Care Team Providers Care Transit Operator Name Role Phone Suhail Burrows M.D. Primary Care P dena Encounter Details Date Type Department Care Team (Late st Contact Info) Description 09/09/2022 Documentation Department of Radiation Oncology in [place], [place] [address] [place] [phone] Clemente Feng M.D. [address] [place] [address] Social History Tobacco Use Types Packs/Day Years [...] * Radiation Completion Notes - Princess Ruiz R.N. - 09/09/2022 11:59 PM CDT DIAGNOSIS: 1. Secondary Malignant Neoplasm Brain (HCC) 2. 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 [phone]) Treatment Intent: Palliative Concomitant Therapy: None Single Plan Treatment Course: [id number] Plan ID Fractions Dose / Fraction (cGy) Dose Treated (cGy) Dose Planned (cGy) First Treatment Last Treatment Elapsed Days [id number] 300 3000 3000 08/29/2022 09/09/2022 11 Course Summary 08/29/2022 09/09/2022 11 Radiation Modality: Photons CLINICAL SUMMARY Miss Sandrine Deleon completed radiation treatment as planned without interruptions. The course of treatment was tolerated well. The patient experienced toxicities of grade 1 fatigue and headache pain during radiation treatment. TREATMENT RESPONSE: Response to treatment will be determined by post-treatment imaging and/or laboratory work. RECOMMENDED FOLLOW UP: Primary Medical Oncologist. Dr. Felipe will see patient on September 15, 2022. Patient will have a follow up visit with Dr. Feng in 2-3 months with a MRI of the brain. Signed by: Princess Ruiz R.N., 09/12/2022 2:56 PM CDT [facility] [address] [place] [id number] documented in this encounter Plan of Treatment Upcoming Encounters Date Type Department Care Team (Latest Contact Info) Description 06/29/2023 11:00 AM ZIPPER REPAIRER Appointment Department of Radiation Oncology in [address] [phone] Clemente Feng M.D. [address] [place] [address] 08/08/2023 10:30 AM ZIPPER REPAIRER Comprehensive Visit Department of Endocrinology in [place], [place] [address] [place] [phone] Tomer Hinson M.D. [address] [place] [phone] Discharge Disposition: Home or Self Care documented as of this encounter Visit Diagnoses Diagnosis Secondary Malignant Neoplasm Brain (HCC)- Primary 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) documented in this encounter Care Teams Transit Operator Relationship Specialty Start Date End Date Suhail Burrows M.B.B.S., M.D. [address] [place] [phone] PCP - General Family Medicine 06/09/22 documented as of this encounter
--- OUTSIDE RECORDS SUMMARY | 2023-06-26 09:13 | XMS_ITS | Encounter Summary ---
Author Name Unknown Organization [facility] Address [address] [place] [address] Care Team Providers Care Extracorporeal Circulation Specialist Name Role Phone Suhail Burrows M.D. Primary Care P dena Reason for Referral * Radiation Therapy (Routine) - Closed Specialty Diagnoses / Procedures Referred By Yelena griffin Referred To Contact Diagnoses Secondary Malignant Neoplasm Brain (HCC) 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) Procedures Initial Rad Onc Treatment Planning CT Simulation Initial Rad Onc Treatment Planning CT Simulation Clemente Feng M.D. [address] [place] [address] [facility] Referral ID Status Reason Start Date Expiration Date Visits Re quested Visits Authorized [id number] Closed 08/19/2022 08/19/2023 1 1 Reason for Visit * Radiation Therapy (Routine) - Closed Specialty Diagnoses / Procedures Referred By Contac t Referred To Contact Diagnoses Secondary Malignant Neoplasm Brain (HCC) 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) Procedures Initial Rad Onc Treatment Planning CT Simulation Initial Rad Onc Treatment Planning CT Simulation Clemente Feng M.D. [address] [place] [address] [facility] Referral ID Status Reason Start Date Expiration Date Visits Re quested Visits Authorized [id number] Closed 08/19/2022 08/19/2023 1 1 Encounter Details Date Type Department Care Team (Latest Contact Info) Description 08/23/2022 8:46 AM CDT - 08/25/2022 9:24 AM CDT Hospital Encounter Department of Radiation Oncology in [place], [place] [address] [place] [address] Yusra Lambert M.D. [address] [place] [address] Secondary Malignant Neoplasm Brain (HCC); 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) Social History Tobacco Use Types Packs/Day Years Used Date Smoking Tobacco: Every Day Cigarettes 07 11 Started: 1991 Smokeless Tobacco: Never Alcohol Use Standard Drinks/Week [...] Date End Date amLODIPine (NORVASC) 10 mg tabletIndications:Hypert ension Essential Primary Take 1 tablet (10 mg total) by mouth daily. 90 tablet 3 08/01/2022 09/21/2022 cyclobenzaprine (FLEXERIL) 10 mg tablet 10 mg daily as needed. 0 06/09/2022 09/21/2022 documented as of this encounter Procedure Notes * Kala Llanos, RTT - 08/23/2022 9:15 AM CDTAssociated Order(s): Initial Rad Onc Treatment Planning CT Simulation Pre-Procedure Diagnose(s): Secondary Malignant Neoplasm Brain (HCC); 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) Post-Procedure Diagnose(s): Secondary Malignant Neoplasm Brain (HCC); 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) Initial Rad Onc Treatment Planning CT Simulation Performed by: Yusra Lambert M.D. Authorized by: Clemente Feng M.D. Simulation [...] placed to facilitate marking of isocenter. Area scanned:Head and Neck Contrast used for the simulation procedure: None Patient position:head first supine Custom immobilization: 3 point mask and Custom neck rest Motion management: None Bolus: No CT guidance: Following positioning of the patient, a series of slices was obtained to be utilized in treatment planning. CT images were transferred to the Aeg[employer] treatment planning system, after a reference isocenter was determined and marked. Segmentation and treatment planning will take place prior to treatment delivery. Patient set up and imaging was appropriate and completed without incident. Binder Cutter Hand use:No Associated attestation - Yusra Lambert M.D. - 08/23/2022 1:34 PM CDT I was available. documented in this encounter Plan of Treatment Upcoming Encounters Date Type Department Care Team (Latest Contact Info) Description 06/29/2023 11:00 AM COMMERCIAL TECHNICIAN Appointment Department of Radiation Oncology in [place], [place] [address] [place] [phone] Clemente Feng M.D. [address] [place] [address] 08/08/2023 10:30 AM COMMERCIAL TECHNICIAN Comprehensive Visit Department of Endocrinology in [place], [place] [address] [place] [phone] Tomer Hinson M.D. [address] [place] [phone] Discharge Disposition: Home or Self Care documented as of this encounter Procedures Procedure Name Priority Date/Time Associated Diagnosis Comments INITIAL RAD ONC TREATMENT PLANNING CT SIMULATION Routine 08/23/2022 9:15 AM CDT Secondary Malignant Neoplasm Brain (HCC) 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) documented in this encounter Results * Initial Rad Onc Treatment Planning CT Simulation (08/23/2022 9:15 AM CDT) Narrative AMBERLY RUFFIN - 08/23/2022 9:15 AM CDT Kala Llanos, RTT ? 08/23/2022 ??9:32 AM Initial Rad Onc Treatment Planning CT Simulation Performed by: Yusra Lambert M.D. Authorized by: Clemente Feng M.D. Clemente Feng M.D. RADIATION ONCOLOGY ORDERABLES AMBERLY RUFFIN na documented in this encounter Visit Diagnoses Diagnosis Secondary Malignant Neoplasm Brain (HCC) 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) documented in this encounter Care Teams Extracorporeal Circulation Specialist Relationship Specialty Start Date End Date Suhail Burrows M.B.BHectorSBeronica Young. [address] [place] [phone] PCP - General Family Medicine 06/09/22 documented as of this encounter
--- OUTSIDE RECORDS SUMMARY | 2023-06-26 09:13 | XMS_ITS | Encounter Summary ---
Author Name Unknown Organization [facility] Address [address] [place] [address] Care Team Providers Care Inspector Government Property Name Role Phone Suhail Burrows M.D. Primary Care P dena Reason for Visit * Reason Onset Date Comments Appointment 08/18/2022 Encounter Details Date Type Department Care Team (Late st Contact Info) Description 08/18/2022 Clinical Communication Division of Pulmonary Medicine in [place], [place] [address] [place] [address] Miles Ballard Jr., M.D. [address] [place] [address] Appointment Social History Tobacco Use Types Packs/Day Years [...] encounter Miscellaneous Notes * Telephone Encounter - Emma John - 08/18/2022 10:47 AM CST Good Morning Dr. Ballard, Patient called today in regards to the Oncology Consultation and is hoping this can be done at the [facility] in [place]. Are you able to place orders for that region? Please advise. ENT MIXER documented in this encounter Plan of Treatment Upcoming Encounters Date Type Department Care Team (Latest Contact Info) Description 06/29/2023 11:00 AM PIGMENT MIXER Appointment Department of Radiation Oncology in [place], [place] [address] [place] [address] Clemente Feng M.D. [address] [place] [address] 08/08/2023 10:30 AM PIGMENT MIXER Comprehensive Visit Department of Endocrinology in [place], [place] [address] [place] [phone] Tomer Hinson M.D. [address] [place] [phone] Discharge Disposition: Home or Self Care documented as of this encounter Visit Diagnoses Not on filedocumented in this encounter Care Teams Inspector Government Property Relationship Specialty Start Date End Date Suhail Burrows M.B.B.S., M.D. [address] [place] [phone] PCP - General Family Medicine 06/09/22 documented as of this encounter
--- OUTSIDE RECORDS SUMMARY | 2023-06-26 09:13 | XMS_ITS | Encounter Summary ---
Author Name Unknown Organization [facility] Address [address] [place] [address] Care Team Providers Care Rivet Hole Machine Operator Name Role Phone Suhail Burrows M.D. Primary Care Allan fernandes Reason for Visit * Reason Onset Date Comments Triage 08/18/2022 Encounter Details Date Type Department Care Team (Late st Contact Info) Description 08/18/2022 Clinical Communication Department of Oncology in [place], [place] [address] [place] [address] Thai Morris, P.A.-C. Triage Social History Tobacco Use Types Packs/Day Years [...] (Latest Contact Info) Description 06/29/2023 11:00 AM RADIOACTIVITY TECHNICIAN Appointment Department of Radiation Oncology in [place], [place] [address] [place] [phone] Clemente Feng M.D. [address] [place] [address] 08/08/2023 10:30 AM RADIOACTIVITY TECHNICIAN Comprehensive Visit Department of Endocrinology in [place], [place] [address] [facility] [place] [place] [phone] Tomer Hinson M.D. [address] [facility] [place] [phone] Discharge Disposition: Home or Self Care documented as of this encounter Visit Diagnoses Not on filedocumented in this encounter Care Teams Rivet Hole Machine Operator Relationship Specialty Start Date End Date Suhail Burrows M.B.B.S., M.D. [address] [place] [address] [place] [address] PCP - General Family Medicine 06/09/22 documented as of this encounter
--- OUTSIDE RECORDS SUMMARY | 2023-06-26 09:13 | XMS_ITS | Encounter Summary ---
Author Name Unknown Organization [facility] Address [address] [place] [address] Care Team Providers Care Home Designer Name Role Phone Suhail Burrows M.D. Primary Care P dena Encounter Details Date Type Department Care Team (Late st Contact Info) Description 08/18/2022 Documentation Department of Patient Education in [place], [place] [address] [place] [address] Junior Sweet, C.N.A. Social History Tobacco Use Types Packs/Day Years Used Date Smoking Tobacco: Every Day Cigarettes 30 Started: 1991 Smokeless Tobacco: Never Alcohol Use [...] as of this encounter Progress Notes * Junior Sweet, C.N.A. - 08/18/2022 1:04 PM CST Referral from Sharron Hebert RN to contact patient and discuss discounted lodging options as patient will be completing cancer treatment in [place]. I spoke with the patient via phone and patient stated after meeting with Dr. Lambert in radiation oncology this morning in [facility], she has chosen to receive RT at our [facility] location. Patient does not require lodging information at this time. No other PN needs identified. BNL. GER PERSONNEL SELECTION documented in this encounter Plan of Treatment Upcoming Encounters Date Type Department Care Team (Latest Contact Info) Description 06/29/2023 11:00 AM MANAGER PERSONNEL SELECTION Appointment Department of Radiation Oncology in [place], [place] [address] [place] [address] Clemente Feng M.D. [address] [place] [address] 08/08/2023 10:30 AM MANAGER PERSONNEL SELECTION Comprehensive Visit Department of Endocrinology in [place], [place] [address] [place] [phone] Tomer Hinson M.D. [address] [place] [phone] Discharge Disposition: Home or Self Care documented as of this encounter Visit Diagnoses Not on filedocumented in this encounter Care Teams Home Designer Relationship Specialty Start Date End Date Suhail Burrows M.B.B.S., M.D. [address] [place] [phone] PCP - General Family Medicine 06/09/22 documented as of this encounter
--- OUTSIDE RECORDS SUMMARY | 2023-06-26 09:13 | XMS_ITS | Encounter Summary ---
Author Name Unknown Organization [facility] Address [address] [place] [address] Care Team Providers Care Bottle Washer Machine Name Role Phone Suhail Burrows M.D. 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 [address] [place] [address] [facility] Referral ID Status Reason Start Date Expiration Date Visits Re quested Visits Authorized [id number] Closed 08/19/2022 08/19/2023 1 1 Encounter Details Date Type Department Care Team (Latest Contact Info) Description 08/23/2022 9:38 AM CDT - 08/23/2022 11:59 PM CDT Hospital Encounter Department of Radiology, [facility], in [place], [place] [address] [place] [address] Clemente Feng M.D. [address] [place] [address] Secondary Malignant Neoplasm Brain (HCC); Malignant Neoplasm [...] 06/09/2022 09/21/2022 documented as of this encounter Plan of Treatment Upcoming Encounters Date Type Department Care Team (Latest Contact Info) Description 06/29/2023 11:00 AM BRAND SALES CONSULTANT Appointment Department of Radiation Oncology in [place], [place] [address] [place] [phone] Clemente Feng M.D. [address] [place] [address] 08/08/2023 10:30 AM BRAND SALES CONSULTANT Comprehensive Visit Department of Endocrinology in [place], [place] [address] [place] [address] Tomer Hinson M.D. 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 Brain MRI was performed for radiation treatment planning purposes. 2. Extensive intracranial metastases, slightly more conspicuous compared to 07/28/2022 MRI, which could be due to differences in technique. 3. 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 Narrative 08/23/2022 12:04 PM CDT EXAM: MR BRAIN WITHOUT AND WITH IV CONTRAST COMPARISON: Brain MRI 07/28/2022. FINDINGS: Brain MRI was performed for radiation treatment planning purposes. Numerous scattered enhancing lesions scattered throughout the brain, throughout the cerebral and cerebellar hemispheres and left middle cerebellar peduncle, consistent with metastases. The largest lesion is located in the left middle cerebellar peduncle and measures approximately 6 mm. Mild dural thickening along the left anterior falx measuring 1-2 mm in thickness (series 500 image 239), is also suspicious for dural based metastasis. These lesions are overall slightly more conspicuous compared to 07/28/2022 MRI, which could be due to difference in technique. Small focal nonenhancing T2 hyperintensity in the right ventral chetan with resolution of restricted diffusion since prior MRI, compatible with a now chronic infarct. Scattered restricted diffusion associated with some of the presumed intracranial metastases. No significant intracranial mass effect or extra-axial collection. Mild scattered T2 hyperintensities associated with some of the presumed metastases. Superimposed minimal scattered leukoaraiosis. No significant brain parenchymal volume loss. No ventriculomegaly. Procedure Note Mckinley Tesfaye M.D. - 08/23/2022 EXAM: MR BRAIN WITHOUT AND WITH IV CONTRAST COMPARISON: Brain MRI 07/28/2022. FINDINGS: Brain MRI was performed for radiation treatment planningpurposes. Numerous scattered enhancing lesions scattered throughout the brain, throughout the cerebraland cerebellar hemispheres and left middle cerebellar peduncle, consistent with metastases. Thelargest lesion is located in the left middle cerebellar peduncle and measures approximately 6 mm. Milddural thickening along the left anterior falx measuring 1-2 mm in thickness (series 500 image 239),is also suspicious for dural based metastasis. These lesions are overall slightly moreconspicuous compared to 07/28/2022 MRI, which could be due to difference in technique. Small focal nonenhancing T2 hyperintensity in the right ventral chetan withresolution of restricted diffusion since prior MRI, compatible with a now chronic infarct.Scattered restricted diffusion associated with some of the presumed intracranial metastases. Nosignificant intracranial mass effect or extra-axial collection. Mild scattered T2 hyperintensitiesassociated with some of the presumed metastases. Superimposed minimal scattered leukoaraiosis. Nosignificant brain parenchymal volume loss. No ventriculomegaly. IMPRESSION: 1. Brain MRI was performed for radiation treatment planning purposes. 2. Extensive intracranial metastases, slightly more conspicuous comparedto 07/28/2022 MRI, which could be due to differences in technique. 3. 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 Given 08/23/2022 10:55 AM CDT 6 mL documented in this encounter Care Teams Bottle Washer Machine Relationship Specialty Start Date End Date Suhail Burrows M.B.B.S., MChika. [address] [place] [address] [place] [address] PCP - General Family Medicine 06/09/22 documented as of this encounter
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
--- OUTSIDE RECORDS SUMMARY | 2023-06-26 09:13 | XMS_ITS | Encounter Summary ---
Author Name Unknown Organization [facility] Address [address] [place] [address] Care Team Providers Care Nutrition Assistant Name Role Phone Suhail Burrows M.D. 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 [address] [place] [address] [facility] Referral ID Status Reason Start Date Expiration Date Visits Re quested Visits Authorized [id number] Closed 08/29/2022 08/19/2023 10 10 Encounter Details Date Type Department Care Team (Latest Contact Info) Description 08/30/2022 8:26 AM CDT - 08/30/2022 11:59 PM CDT Hospital Encounter Department of Radiation Oncology in [place], [place] [address] [place] [address] Clemente Feng M.D. [address] [place] [phone] Discharge Disposition: Home or Self Care Social [...] (Latest Contact Info) Description 06/29/2023 11:00 AM FIELD PARTY MANAGER Appointment Department of Radiation Oncology in [place], [place] [address] [place] [address] Clemente Feng M.D. [address] [place] [address] 08/08/2023 10:30 AM FIELD PARTY MANAGER Comprehensive Visit Department of Endocrinology in [place], [place] [address] [place] [phone] Tomer Hinson M.D. [address] [place] [phone] Discharge Disposition: Home or Self Care documented as of this encounter Visit Diagnoses Not on filedocumented in this encounter Care Teams Nutrition Assistant Relationship Specialty Start Date End Date Suhail Burrows M.B.B.S., Beronica. [address] [place] [address] [place] [phone] PCP - General Family Medicine 06/09/22 documented as of this encounter
--- OUTSIDE RECORDS SUMMARY | 2023-06-26 09:13 | XMS_ITS | Encounter Summary ---
Author Name Unknown Organization [facility] Address [address] [place] [address] Care Team Providers Care Title Insurance Examiner Name Role Phone Suhail Burrows M.D. 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 [address] [place] [address] [facility] Referral ID Status Reason Start Date Expiration Date Visits Re quested Visits Authorized [id number] Closed 08/29/2022 08/19/2023 10 10 Encounter Details Date Type Department Care Team (Latest Contact Info) Description 09/02/2022 9:31 AM CDT Hospital Encounter Department of Radiation Oncology in [place], [place] [address] [place] [address] Clemente Feng M.D. [address] [place] [phone] Discharge Disposition: Home or Self Care Social [...] (Latest Contact Info) Description 06/29/2023 11:00 AM HIGH LIFT OPERATOR Appointment Department of Radiation Oncology in [place], [place] [address] [place] [address] Clemente Feng M.D. [address] [place] [address] 08/08/2023 10:30 AM HIGH LIFT OPERATOR Comprehensive Visit Department of Endocrinology in [place], [place] [address] [place] [phone] Tomer Hinson M.D. [address] [place] [phone] Discharge Disposition: Home or Self Care documented as of this encounter Visit Diagnoses Not on filedocumented in this encounter Care Teams Title Insurance Examiner Relationship Specialty Start Date End Date Suhail Burrows M.B.B.S., M.D. [address] [place], [place] [address] [phone] PCP - General Family Medicine 06/09/22 documented as of this encounter
--- OUTSIDE RECORDS SUMMARY | 2023-06-26 09:13 | XMS_ITS | Encounter Summary ---
Author Name Unknown Organization [facility] Address [address] [place] [address] Care Team Providers Care Valver Name Role Phone Suhail Burrows M.D. Primary Care P dena Reason for Referral * MRI/CAT/PET Scan (Routine) - Closed Specialty Diagnoses / Procedures Referred By Yelena grififn Referred To Contact Radiology Diagnoses Secondary Malignant Neoplasm Brain (HCC) 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) Procedures MR Brain without and with IV Contrast MR Brain without and with IV Contrast Clemente Feng M.D. [address] [place] [address] [facility] Referral ID Status Reason Start Date Expiration Date Visits Re quested Visits Authorized [id number] Closed 08/19/2022 08/19/2023 1 1 RANCE CONSULTANT * Radiation Therapy (Routine) - Closed Specialty Diagnoses / Procedures Referred By Yelena griffin Referred To Contact Diagnoses Secondary Malignant Neoplasm Brain (HCC) 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) Procedures Initial Rad Onc Treatment Planning CT Simulation Initial Rad Onc Treatment Planning CT Simulation Clemente Fneg M.D. [address] [place] [address] [facility] Referral ID Status Reason Start Date Expiration Date Visits Re quested Visits Authorized [id number] Closed 08/19/2022 08/19/2023 1 1 RANCE CONSULTANT * Specialty Diagnoses / Procedures Referred By Contac t Referred To Contact Yusra Love APRN C.N.PHector, D.N.P. [address] [place] [phone] [facility] Region Referral ID Status Reason Start Date Expiration Date Visits Re quested Visits Authorized RANCE CONSULTANT * Radiation Therapy (Routine) - Authorized Specialty Diagnoses / Procedures Referred By Philipac t Referred To Contact Diagnoses Secondary Malignant Neoplasm Brain (HCC) 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) Procedures Management Visit Clemente Feng M.D. [address] [place] [phone] [facility] Referral ID Status Reason Start Date Expiration Date V isits Requested Visits Authorized [id number] Authorized 08/19/2022 08/19/2023 10 10 RANCE CONSULTANT * Radiation Therapy (Routine) - Closed Specialty Diagnoses / Procedures Referred By Yelena griffin Referred To Contact Diagnoses Secondary Malignant Neoplasm Brain (HCC) 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) Procedures Prior Auth Rad Tx [place] IMRT COMPLEX Clemente Feng M.D. [address] [place] [phone] [facility] Referral ID Status Reason Start Date Expiration Date Visits Re quested Visits Authorized [id number] Closed 08/29/2022 08/19/2023 10 10 RANCE CONSULTANT Encounter Details Date Type Department Care Team (Late st Contact Info) Description 08/19/2022 Orders Only Department of Radiation Oncology in [place], [place] [address] [place] [phone] Yusra Love APRN, C.N.P., D.N.P. [address] [place] [phone] Secondary Malignant Neoplasm Brain (HCC) (Primary Dx); 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) Social History Tobacco Use Types Packs/Day Years Used Date Smoking Tobacco: Every Day Cigarettes 1 30 Started: 1992 Smokeless Tobacco: Never Alcohol [...] as of this encounter Miscellaneous Notes * Addendum Note - Yusra Love APRN, C.N.P., D.N.P. - 08/19/2022 10:11 AM CSTAddended by: YUSRA LOVE on: 08/19/2022 01:11 PM Modules accepted: Orders RANCE CONSULTANT documented in this encounter Plan of Treatment Upcoming Encounters Date Type Department Care Team (Latest Contact Info) Description 06/29/2023 11:00 AM INSURANCE CONSULTANT Appointment Department of Radiation Oncology in [place], [place] [address] [place] [phone] Clemente Feng M.D. [address] [place] [address] 08/08/2023 10:30 AM INSURANCE CONSULTANT Comprehensive Visit Department of Endocrinology in [place], [place] [address] [place] [phone] Tomer Hinson M.D. [address] [place] [phone] Discharge Disposition: Home or Self Care Scheduled Orders Name Type Priority Associated Diagnoses Order Schedule Prior Auth Rad Tx Radiation Oncology Routine Secondary Malignant Neoplasm Brain (HCC) 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) Ordered: 08/19/2022 Management Visit Radiation Oncology Routine Secondary Malignant Neoplasm Brain (HCC) 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) 10 Occurrences starting 08/19/2022 until 08/20/2023 Scheduled Referrals Name Type Priority Associated Diagnoses Orde r Schedule Radiation Oncology - Nurse education visit (clinic) Outpatient Referral Routine Secondary Malignant Neoplasm Brain (HCC) 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) Expected: 08/19/2022 (Approximate), Expires: 08/20/2023 documented as of this encounter Results * [...] 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 Clemente Feng M.D. [facility] MRI PROCEDURES * Initial Rad Onc Treatment Planning CT Simulation (08/23/2022 9:15 AM CDT) Narrative BRONX AUGUSTIN - 08/23/2022 9:15 AM CDT Kala Llanos, RTT ? 08/23/2022 ??9:32 AM Initial Rad Onc Treatment Planning CT Simulation Performed by: Yusra Lambert M.D. Authorized by: Clemente Feng M.D. Clemente Feng M.D. RADIATION ONCOLOGY ORDERABLES AMBERLY deleon documented [...] (HCC) documented in this encounter Care Teams Valver Relationship Specialty Start Date End Date Suhail Burrows M.B.B.S., M.D. [address] [place] [phone] PCP - General Family Medicine 06/09/22 documented as of this encounter
--- OUTSIDE RECORDS SUMMARY | 2023-06-26 09:13 | XMS_ITS | Encounter Summary ---
Author Name Unknown Organization [facility] Address [address] [place] [address] Care Team Providers Care Ski Technician Name Role Phone Suhail Burrows M.D. Primary Care Allan fernandes Reason for Visit * Radiation Therapy (Routine) - Closed Specialty Diagnoses / Procedures Referred By Contyeimy t Referred To Contact Diagnoses Secondary Malignant Neoplasm Brain (HCC) 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) Procedures Prior Auth Rad Tx [place] IMRT COMPLEX Clemente Feng M.D. [address] [place] [address] [facility] Referral ID Status Reason Start Date Expiration Date Visits Re quested Visits Authorized [id number] Closed 08/29/2022 08/19/2023 10 10 Encounter Details Date Type Department Care Team (Latest Contact Info) Description 08/31/2022 9:24 AM CDT Hospital Encounter Department of Radiation Oncology in [place], [place] [address] [place] [address] Clemente Feng M.D. [address] [place] [phone] Discharge Disposition: Home or Self Care Social [...] (Latest Contact Info) Description 06/29/2023 11:00 AM OFFSET LITHOGRAPHIC PRESS OPERATOR Appointment Department of Radiation Oncology in [place], [place] [address] [place] [address] Clemente Feng M.D. [address] [place] [address] 08/08/2023 10:30 AM OFFSET LITHOGRAPHIC PRESS OPERATOR Comprehensive Visit Department of Endocrinology in [place], [place] [address] [place] [phone] Tomer Hinson M.D. [address] [place] [phone] Discharge Disposition: Home or Self Care documented as of this encounter Visit Diagnoses Not on filedocumented in this encounter Care Teams Ski Technician Relationship Specialty Start Date End Date Suhail Burrows M.B.B.S., M.D. [address] [place], [place] [address] [place] [phone] PCP - General Family Medicine 06/09/22 documented as of this encounter
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
--- OUTSIDE RECORDS SUMMARY | 2023-06-26 09:13 | XMS_ITS | Encounter Summary ---
Author Name Unknown Organization [facility] Address [address] [place] [address] Care Team Providers Care Package Sorter Name Role Phone Suhail Burrows M.D. 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 [address] [place] [address] [facility] Referral ID Status Reason Start Date Expiration Date Visits Re quested Visits Authorized [id number] Closed 08/29/2022 08/19/2023 10 10 Encounter Details Date Type Department Care Team (Latest Contact Info) Description 08/29/2022 10:00 AM CDT - 08/29/2022 11:59 PM CDT Hospital Encounter Department of Radiation Oncology in [place], [place] [address] [place] [address] Clemente Feng M.D. [address] [place] [phone] Discharge Disposition: Home or Self Care Social [...] (Latest Contact Info) Description 06/29/2023 11:00 AM SERVICER TRAVEL TRAILERS Appointment Department of Radiation Oncology in [place], [place] [address] [place] [address] Clemente Feng M.D. [address] [place] [address] 08/08/2023 10:30 AM SERVICER TRAVEL TRAILERS Comprehensive Visit Department of Endocrinology in [place], [place] [address] [place] [phone] Tomer Hinson M.D. [address] [place] [phone] Discharge Disposition: Home or Self Care documented as of this encounter Visit Diagnoses Not on filedocumented in this encounter Care Teams Package Sorter Relationship Specialty Start Date End Date Suhail Burrows M.B.B.S., Beronica. [address] [place] [address] [place] [phone] PCP - General Family Medicine 06/09/22 documented as of this encounter
--- OUTSIDE RECORDS SUMMARY | 2023-06-26 09:13 | XMS_ITS | Encounter Summary ---
Author Name Unknown Organization [facility] Address [address] [place] [address] Care Team Providers Care Public Health Educator Name Role Phone Suhail Burrows M.D. Primary Care P dena Encounter Details Date Type Department Care Team (Late st Contact Info) Description 09/01/2022 Orders Only Department of Oncology in [place], [place] [address] [place] [address] Camryn Felipe M.D. [address] [place] [address] Social History Tobacco Use Types [...] (Latest Contact Info) Description 06/29/2023 11:00 AM CANDY CUTTER HAND Appointment Department of Radiation Oncology in [place], [place] [address] [place] [address] Clemente Feng M.D. [address] [place] [address] 08/08/2023 10:30 AM CANDY CUTTER HAND Comprehensive Visit Department of Endocrinology in [place], [place] [address] [place] [phone] Tomer Hinson M.D. [address] [place] [phone] Discharge Disposition: Home or Self Care documented as of this encounter Visit Diagnoses Not on filedocumented in this encounter Care Teams Public Health Educator Relationship Specialty Start Date End Date Suhail Burrows M.B.BHectorSHector, MChika. [address] [place] [phone] PCP - General Family Medicine 06/09/22 documented as of this encounter
--- OUTSIDE RECORDS SUMMARY | 2023-06-26 09:13 | XMS_ITS | Encounter Summary ---
Author Name Unknown Organization [facility] Address [address] [place] [address] Care Team Providers Care Head Trimmer Name Role Phone Suhail Burrows M.D. Primary Care P dena Encounter Details Date Type Department Care Team (Late st Contact Info) Description 08/19/2022 Clinical Communication Department of Radiation Oncology in [place], [place] [address] [place] [phone] Lorena Story APRN, C.N.P., M.S.N. [address] [place] [address] Social History Tobacco Use Types Packs/Day Years [...] encounter Miscellaneous Notes * Telephone Encounter - Emmett Avelarricardo Ballesteros - 08/22/2022 8:12 AM CDT Other Reason for Call Caller: Ms. Deleon Relationships to patient: Patient Reason for call: She got Lorena's message and is wondering if she should keep her appointment tomorrow in [place] and would also like to schedule her radiation treatment planning appointment. Willy back number is [phone] Very flexible in scheduling. documented in this encounter Plan of Treatment Upcoming Encounters Date Type Department Care Team (Latest Contact Info) Description 06/29/2023 11:00 AM BACK WINDER Appointment Department of Radiation Oncology in [place], [place] [address] [place] [phone] Clemente Feng M.D. [address] [place] [address] 08/08/2023 10:30 AM BACK WINDER Comprehensive Visit Department of Endocrinology in [place], [place] [address] [place] [phone] Tomer Hinson M.D. [address] [place] [phone] Discharge Disposition: Home or Self Care documented as of this encounter Visit Diagnoses Not on filedocumented in this encounter Care Teams Head Trimmer Relationship Specialty Start Date End Date Suhail Burrows M.B.B.S., Beronica. [address] [place] [phone] PCP - General Family Medicine 06/09/22 documented as of this encounter
--- OUTSIDE RECORDS SUMMARY | 2023-06-26 09:13 | XMS_ITS | Encounter Summary ---
Author Name Unknown Organization [facility] Address [address] [place] [address] Care Team Providers Care Bricklayer Paving Brick Name Role Phone Suhail Burrows M.D. 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 [address] [place] [address] [facility] Referral ID Status Reason Start Date Expiration Date Visits Re quested Visits Authorized [id number] Closed 08/29/2022 08/19/2023 10 10 Encounter Details Date Type Department Care Team (Latest Contact Info) Description 09/01/2022 9:29 AM CDT - 09/01/2022 11:59 PM CDT Hospital Encounter Department of Radiation Oncology in [place], [place] [address] [place] [phone] Clemente Feng M.D. [address] [place] [phone] Discharge Disposition: Home or Self Care Social [...] (Latest Contact Info) Description 06/29/2023 11:[address] [place] JUDGE Appointment Department of Radiation Oncology in [place], [place] [address] [place] [address] Clemente Feng M.D. [address] [place] [address] 08/08/2023 10:[address] [place] JUDGE Comprehensive Visit Department of Endocrinology in [place], [place] [address] [place] [phone] Tomer Hinson M.D. [address] [place] [phone] Discharge Disposition: Home or Self Care documented as of this encounter Visit Diagnoses Not on filedocumented in this encounter Care Teams Bricklayer Paving Brick Relationship Specialty Start Date End Date Suhail Burrows M.B.B.S., Beronica. [address] [place] [address] [place] [phone] PCP - General Family Medicine 06/09/22 documented as of this encounter
--- OUTSIDE RECORDS SUMMARY | 2023-06-26 09:13 | XMS_ITS | Encounter Summary ---
Author Name Unknown Organization [facility] Address [address] [place] [address] Care Team Providers Care Dusting And Brushing Machine Operator Name Role Phone Suhail Burrows M.D. Primary Care P dena Encounter Details Date Type Department Care Team (Latest Contact Info) Description 08/18/2022 10:14 AM PLATFORM MILL SUPERVISOR - 08/18/2022 11:59 PM [facility] Hospital Encounter Department of Laboratory Medicine and Pathology, [facility], in [place], [place] [address] [place] [address] Miles Ballard Jr., M.D. 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 [address] [place] [address] 08/08/2023 10:30 AM PLATFORM MILL SUPERVISOR Comprehensive Visit Department of Endocrinology in [place], [place] [address] [place] [phone] Tomer Hinson M.D. 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) documented in this encounter Results * (ABNORMAL) Comprehensive Metabolic Panel (08/18/2022 10:25 AM PLATFORM MILL SUPERVISOR) Potassium, S 5.3(H) 3.6 - 5.2 mmol/L 08/18/2022 11:31 AM PLATFORM MILL SUPERVISOR DTL Sodium, S 143 135 - 145 mmol/L 08/18/2022 11:31 AM PLATFORM MILL SUPERVISOR DTL Chloride, S 103 98 - 107 mmol/L 08/18/2022 11:31 AM PLATFORM MILL SUPERVISOR DTL Bicarbonate, S 29 22 - 29 mmol/L 08/18/2022 11:31 AM PLATFORM MILL SUPERVISOR DTL Anion Gap 11 7 - 15 08/18/2022 11:31 AM PLATFORM MILL SUPERVISOR DTL BUN (Blood Urea Nitrogen), S 13 6 - 21 mg/dL 08/18/2022 11:31 AM PLATFORM MILL SUPERVISOR DTL Creatinine 0.64 0.59 - 1.04 mg/dL 08/18/2022 11:31 AM PLATFORM MILL SUPERVISOR DTL Estimated GFR (eGFR) >90 >=60 mL/min/BS A 08/18/2022 11:31 AM PLATFORM MILL SUPERVISOR DTL Comment: Estimated GFR calculated using the 2020 CKD_EPI creatinine equation. Calcium, Total, S 9.9 8.8 - 10.2 mg/dL 08/18/2022 11:31 AM PLATFORM MILL SUPERVISOR DTL Glucose, S 92 70 - 140 mg/dL 08/18/2022 11:31 AM PLATFORM MILL SUPERVISOR DTL Protein, Total, S 6.9 6.3 - 7.9 g/dL 08/18/2022 11:31 AM PLATFORM MILL SUPERVISOR DTL Albumin, S 4.5 3.5 - 5.0 g/dL 08/18/2022 11:31 AM PLATFORM MILL SUPERVISOR DTL Aspartate Aminotransferase (AST), S 19 8 - 43 U/L 08/18/2022 11:31 AM PLATFORM MILL SUPERVISOR DTL Alkaline Phosphatase, S 78 35 - 104 U/L 08/18/2022 11:31 AM PLATFORM MILL SUPERVISOR DTL Alanine Aminotransferase (ALT), S 18 7 - 45 U/L 08/18/2022 11:31 AM PLATFORM MILL SUPERVISOR DTL Bilirubin, Total, S 0.3 <=1.2 mg/dL 08/18/2022 11:31 AM PLATFORM MILL SUPERVISOR DTL Blood (Blood, Venous) 08/18/2022 10:25 AM PLATFORM MILL SUPERVISOR 08/18/2022 11:09 AM PLATFORM MILL SUPERVISOR Miles Ballard Jr., M.D. LAB BLOOD ADD -ON [facility] [address] [place] [address], [facility] [address] [place] [address] * (ABNORMAL) CBC with Differential, Blood (08/18/2022 10:25 AM PLATFORM MILL SUPERVISOR) Hemoglobin 14.6 11.6 - 15.0 g/dL 08/18/2022 10:56 AM PLATFORM MILL SUPERVISOR DTL Hematocrit 45.3(H) 35.5 - 44.9 % 08/18/2022 10:56 AM PLATFORM MILL SUPERVISOR DTL Erythrocytes 4.75 3.92 - 5.13 x10(12)/L 08/18/2022 10:56 AM PLATFORM MILL SUPERVISOR DTL MCV 95.4 78.2 - 97.9 fL 08/18/2022 10:56 AM PLATFORM MILL SUPERVISOR DTL RBC Distrib Width 12.6 12.2 - 16.1 % 08/18/2022 10:56 AM PLATFORM MILL SUPERVISOR DTL Platelet Count 478(H) 157 - 371 x10(9)/L 08/18/2022 10:56 AM PLATFORM MILL SUPERVISOR DTL Leukocytes 8.2 3.4 - 9.6 x10(9)/L 08/18/2022 10:56 AM PLATFORM MILL SUPERVISOR DTL Neutrophils 4.80 1.56 - 6.45 x10(9)/L 08/18/2022 10:56 AM PLATFORM MILL SUPERVISOR DTL Lymphocytes 2.61 0.95 - 3.07 x10(9)/L 08/18/2022 10:56 AM PLATFORM MILL SUPERVISOR DTL Monocytes 0.57 0.26 - 0.81 x10(9)/L 08/18/2022 10:56 AM PLATFORM MILL SUPERVISOR DTL Eosinophils 0.16 0.03 - 0.48 x10(9)/L 08/18/2022 10:56 AM PLATFORM MILL SUPERVISOR DTL Basophils 0.10(H) 0.01 - 0.08 x10(9)/L 08/18/2022 10:56 AM PLATFORM MILL SUPERVISOR DTL Blood (Blood, Venous) 08/18/2022 10:25 AM PLATFORM MILL SUPERVISOR 08/18/2022 10:48 AM PLATFORM MILL SUPERVISOR Miles Ballard Jr., M.D. 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 [address] [place] [phone] PCP - General Family Medicine 06/09/22 documented as of this encounter
--- OUTSIDE RECORDS SUMMARY | 2023-06-26 09:14 | XMS_ITS | Encounter Summary ---
Author Name Unknown Organization [facility] Address [address] [place] [address] Care Team Providers Care Cna Per Diem Name Role Phone Suhail Burrows M.D. Primary Care P dena Reason for Referral * Outpatient (Routine) - Closed Specialty Diagnoses / Procedures Referred By Contac t Referred To Contact Diagnoses Lymphadenopathy Mediastinum Mass Lung Procedures Bronchoscopy (Adult): Miles Ballard Jr., M.D. [address] [place] [address] [facility] Referral ID Status Reason Start Date Expiration Date Visits Re quested Visits Authorized [id number] Closed 08/05/2022 08/05/2023 1 1 PAINTER Reason for Visit * Outpatient (Routine) - Closed Specialty Diagnoses / Procedures Referred By Contac t Referred To Contact Diagnoses Lymphadenopathy Mediastinum Mass Lung Procedures Bronchoscopy (Adult): Miles Ballard Jr., M.D. [address] [place] [address] [facility] Referral ID Status Reason Start Date Expiration Date Visits Re quested Visits Authorized [id number] Closed 08/05/2022 08/05/2023 1 1 Encounter Details Date Type Department Care Team (Latest Contact Info) Description 08/08/2022 7:03 AM TOY PAINTER - 08/08/2022 11:59 PM TOY PAINTER Hospital Encounter Division of Pulmonary Medicine in [place], [place] [address] [place] [phone] Vahid Porras M.D. [address] [place] [address], [place] [phone] Lymphadenopathy Mediastinum; Mass Lung Discharge Disposition: Home or Self Care Social [...] Sign Reading Time Taken Comments Blood Pressure 140/90 08/08/2022 10:[address] anding. Pulse 83 08/08/2022 10:30 AM TOY PAINTER Temperature 36.9 ??C (98.4 ??F) 08/08/2022 10:[address] Respiratory Rate 18 08/08/2022 10:30 AM TOY PAINTER Oxygen Saturation 92% 08/08/2022 10:30 AM TOY PAINTER Inhaled Oxygen Concentration - - Weight - - Height - - Body Mass Index - - documented in this encounter Medications at Time of Discharge Medication Sig Dispensed Refills Start Date End Date amLODIPine (NORVASC) 10 mg tabletIndications:Hypert ension Essential Primary Take 1 tablet (10 mg total) by mouth daily. 90 tablet 3 08/01/2022 09/21/2022 cyclobenzaprine (FLEXERIL) 10 mg tablet 10 mg daily as needed. 0 06/09/2022 09/21/2022 documented as of this encounter OR Notes * Op Note - Vahid Porras M.D. - 08/08/2022 8:00 AM CST FULL OP NOTE Procedure Flexible bronchoscopy with (EBUS guided transbronchial needle aspiration s) (LRB): Surgeon(s) and Role: Gallo MD-primary AugustJORDYN King MD-other Anesthesia Type MAC Pre-operative Diagnosis Left lower lobe lesion mediastinal adenopathy Post-operative Diagnosis Left lower lobe lesion mediastinal adenopathy Findings As expected. Complications Operative Note Narrative Following a procedural pause patient identification we initially proceeded without using an endotracheal tube. We noted that the vocal cords were quite edematous. There was generalized edema within the trachea and both bronchial trees focal endobronchial abnormalities. We then switched to the EBUS scope. She had a fair amount of gagging with initial placement of the EBUS scope. Once we were in the airway she still had significant coughing and inspiratory noise despite was appropriate sedation she continued to cough and we wound up removing the EBUS scope and loaded an endotracheal tube on thestandard scope and intubated. To have suggested coughing but was moving air more easily endotracheal tube in place. We had intended to start with 4R which was smaller PET avidity but due to her difficulty tolerating the procedure we went right station 7 from the left side where a mm node was sampled with 3 passes. These were felt to be diagnostic with adequate specimen for mutation testing and at that point decided to end the. No significant bleeding was encountered. Not surprisingly she did not remember much of anything from the procedure afterward despite coughing frequently through its duration. It should she have further need for bronchoscopy I would suggest that it be done at [facility]. We used 6 mg of Versed and 200 mcg of fentanyl. Specimens ID Type Source Tests Collected by Time A : 7 Aspirate Lymph Node CYTOLOGY FINE NEEDLE ASPIRATION (INCLUDES CORE BIOPSIES Vahid Porras M.D. 08/08/2022 0902 Drains None Estimated Blood Loss None Implants None Vahid Porras M.D. PAINTER documented in this encounter Plan of Treatment Upcoming Encounters Date Type Department Care Team (Latest Contact Info) Description 06/29/2023 11:00 AM TOY PAINTER Appointment Department of Radiation Oncology in [place], [place] [address] [place] [phone] Clemente Feng M.D. [address] [place] [address] 08/08/2023 10:30 AM TOY PAINTER Comprehensive Visit Department of Endocrinology in [place], [place] [address] [place] [address] Tomer Hinson M.D. [address] [phone] Discharge Disposition: Home or Self Care Scheduled Orders Name Type Priority Associated Diagnoses Order Schedule Bronchoscopy (Adult): Procedures Routine Lymphadenopathy Mediastinum Mass Lung Once for 1 Occurrences starting 08/08/2022 until 08/08/2022 Glucose, POCT Point of Care Testing-Docked Device Routine Routine lab collection (next collection) for 1 Occurrences starting 08/08/2022 until 08/08/2022 documented as of this encounter Procedures Procedure Name Priority Date/Time Associated Diagnosis Comments CYTOLOGY FINE NEEDLE ASPIRATION (INCLUDES CORE BIOPSIES Routine 08/08/2022 9:02 AM TOY PAINTER Lymphadenopathy Mediastinum Mass Lung documented in this encounter Results * (ABNORMAL) Cytology Fine Needle Aspiration (including core biopsies) (08/08/2022 9:02 AM TOY PAINTER) (A) 08/10/2022 11:03 AM TOY PAINTER DTL Report electronically signed by Joseph Ceballos M.D., Ph.D. I verify that I have examined all relevant slides/materials for the specimen(s) and rendered or confirmed the diagnosis. (A) 08/10/2022 11:03 AM TOY PAINTER DTL Gross Description Received 3 spray-fixed smears, 3 Diff-Quik stained smears, and 5cc of blood-tinged fluid. Specimen evaluated for adequacy on site. (A) 08/10/2022 11:03 AM TOY PAINTER DTL Source A. Lymph node, Stati on 7, EBUS fine needle aspiration(A) 08/10/2022 11:03 AM TOY PAINTER DTL Addendum Lymph node, Station 7, EBUS fine needle aspiration (smears/cell block) specimen for PD-L1 immunohistochemistry studies (clone [id number], [employer], [place], [place]; using a proprietary detection system) (A1): 80 % ??tumor cells are positive for PD-L1 (membranous positivity). PD-L1 ??positive immune cells cannot be evaluated for PD-L1 expression in this sample. The percent of ML-H1-zxxtqcop cells based upon the total number of tumor cells (combined positive score, CPS) greater than or equal to 1. Interpretation: Studies suggest that positive PD-L1 immunohistochemistry in tumor cells and/or tumor-associated immune cells may predict tumor response to therapy with immune checkpoint inhibitors. ??This result should not be used as the sole factor in determining treatment, as other factors (for example, tumor mutation burden, and microsatellite instability) have been also studied as predictive markers. Fixation: This test has been validated for non-decalcified paraffin embedded tissue specimens fixed in 10% neutral buffered formalin. This assay has not been validated on tissues subjected to the decalcification process and/or use of alternative fixatives for bone/bone marrow specimens or cell blocks. Signed by Joseph Turk M.D. 08/17/2022 1:43 PM This test was developed using an analyte specific reagent. Its performance characteristics were determined by [facility] in a manner consistent with CLIA requirements. This test has not been cleared or approved by the U.S. Food and Drug Administration. Test results for (IHC or RACHEL) testing are valid for specimens fixed between 6 and 72 hours. ??Delay to fixation, under fixation or over fixation fall outside of guidelines and may affect these results. Genetic testing for [facility] Solid Tumor Panel (MCSTP) will be performed and resulted in the patient's medical record. Signed by Jose Arteaga M.D. 08/16/2022 9:14 AM(A) 08/17/2022 1:43 PM TOY PAINTER DTL Comment:REVISED RESULTS Interpretation A. Lymph node, Stati on 7, EBUS fine needle aspiration (smears/cell block): Positive for malignancy. Adenocarcinoma. ?? Consistent with a lung primary. Immunohistochemistry reveals that the cells of interest are positive for TTF1 and negative for p40, supporting the above diagnosis. (A) 08/17/2022 1:43 PM TOY PAINTER DTL Aspirate (Lymph Node) 08/08/2022 9:02 AM TOY PAINTER Miles Ballard Jr., M.D. LAB SURG PATH ORDERABLES [facility] [address] [place] [address], [facility] [address] [place] [address] documented in this encounter Visit Diagnoses Diagnosis Lymphadenopathy Mediastinum Mass Lung documented in this encounter Administered Medications Inactive Administered Medications - up to 3 most recent administrations Medication Order MAR Action Action Date Dose Rate Site benzocaine 20 % mouth spray (HURRICAINE/TOPEX) Code/trauma/sedation medication, Starting on Mon08/08/22 at 0821 Given 08/08/2022 8:21 AM TOY PAINTER 4 sprays fentaNYL injection (SUBLIMAZE) intravenous, Code/trauma/sedation medication, Starting on Mon08/08/22 at 0820 Given 08/08/2022 8:20 AM TOY PAINTER 50 mcg fentaNYL injection (SUBLIMAZE) intravenous, Code/trauma/sedation medication, Starting on Mon08/08/22 at 0835 Given 08/08/2022 8:35 AM TOY PAINTER 50 mcg fentaNYL injection (SUBLIMAZE) intravenous, Code/trauma/sedation medication, Starting on Mon08/08/22 at 0840 Given 08/08/2022 8:40 AM TOY PAINTER 50 mcg fentaNYL injection (SUBLIMAZE) intravenous, Code/trauma/sedation medication, Starting on Mon08/08/22 at 0856 Given 08/08/2022 8:56 AM TOY PAINTER 50 mcg lactated ringers 75 mL/hr, intravenous, Continuous, Starting on Mon08/08/22 at 0730, Pre-Op New Bag 08/08/2022 7:52 AM TOY PAINTER 75 mL/hr 75 mL/h r lidocaine 10 mg/mL (1 %) injection (XYLOCAINE) Code/trauma/sedation medication, Starting on Mon08/08/22 at 0909 Given 08/08/2022 9:09 AM TOY PAINTER 20 mL midazolam (PF) injection (VERSED) Code/trauma/sedation medication, Starting on Mon08/08/22 at 0820 Given 08/08/2022 8:20 AM TOY PAINTER 2 mg midazolam (PF) injection (VERSED) Code/trauma/sedation medication, Starting on Mon08/08/22 at 0832 Given 08/08/2022 8:32 AM TOY PAINTER 1 mg midazolam (PF) injection (VERSED) Code/trauma/sedation medication, Starting on Mon08/08/22 at 0839 Given 08/08/2022 8:55 AM TOY PAINTER 1 mg Given 08/08/2022 8:39 AM TOY PAINTER 1 mg midazolam (PF) injection (VERSED) Code/trauma/sedation medication, Starting on 08/08/22 at 0850 Given 08/08/2022 8:50 AM TOY PAINTER 1 mg documented in this encounter Care Teams Cna Per Diem Relationship Specialty Start Date End Date Suhail Burrows M.B.B.S., M.D. [address] [place] [address] [place] [address] PCP - General Family Medicine 06/09/22 documented as of this encounter
--- OUTSIDE RECORDS SUMMARY | 2023-06-26 09:14 | XMS_ITS | Encounter Summary ---
Author Name Unknown Organization [facility] Address [address] [place] [address] Care Team Providers Care Electrical Design Engineer Name Role Phone Suhail Burrows M.D. Primary Care P dena Encounter Details Date Type Department Care Team ( Contact Info) Description 08/05/2022 12:30 PM PLASTIC FIXTURE BUILDER Diagnostic Division of Pulmonary Medicine in [place], [place] [address] [place] [phone] Suhail Burrows M.B.B.S., [place] [address] [place] [phone] Nodule Pulmonary Social History Tobacco Use Types Packs/Day Years [...] (Latest Contact Info) Description 06/29/2023 11:00 AM PLASTIC FIXTURE BUILDER Appointment Department of Radiation Oncology in [place], [place] [address] [place] [phone] Clemente Feng M.D. [address] [place] [phone] 08/08/2023 10:30 AM PLASTIC FIXTURE BUILDER Comprehensive Visit Department of Endocrinology in [place], [place] [address] [facility] [place] [place] [phone] Tomer Hinson M.D. [address] [place] [facility] [place] [phone] Discharge Disposition: Home or Self Care documented as of this encounter Procedures Procedure Name Priority Date/Time Associated Diagnosis Comments PULMONARY FUNCTION TESTS Routine 08/05/2022 12:31 PM PLASTIC FIXTURE BUILDER Nodule Pulmonary documented in this encounter Results * Pulmonary Function Tests (08/05/2022 12:31 PM PLASTIC FIXTURE BUILDER) PostFVC 3.19 L 08/05/2022 2:21 PM PLASTIC FIXTURE BUILDER [place] [address] PostFEV1 1.94 L 08/05/2022 2:21 PM PLASTIC FIXTURE BUILDER [facility] FEV1/FVC POST 60.79 % 08/05/2022 2:21 PM PLASTIC FIXTURE BUILDER [facility] SU[facility] FEF 25-75 % POST 0.93 L/s 08/05/2022 2:21 PM PLASTIC FIXTURE BUILDER [facility] [address] PEF POST 5.38 L/s 08/05/2022 2:21 PM PLASTIC FIXTURE BUILDER [facility] SU[facility] PIF POST 3.89 L/s 08/05/2022 2:21 PM PLASTIC FIXTURE BUILDER [facility] SU[facility] FEF 50 % FIF 50 POST 40.33 % 08/05/2022 2:21 PM PLASTIC FIXTURE BUILDER [facility] SU[facility] FET POST 7.98 sec 08/05/2022 2:21 PM PLASTIC FIXTURE BUILDER [facility] SU[facility] FVC 2.94 L 08/05/2022 2:21 PM PLASTIC FIXTURE BUILDER [facility] SU[facility] FEV1 2.01 L 08/05/2022 2:21 PM PLASTIC FIXTURE BUILDER [facility] SU[facility] FEV1/FVC 68.30 % 08/05/2022 2:21 PM PLASTIC FIXTURE BUILDER [facility] SU[facility] XFK71-97% 1.24 L/s 08/05/2022 2:21 PM PLASTIC FIXTURE BUILDER [facility] PEF PRE 5.46 L/s 08/05/2022 2:21 PM PLASTIC FIXTURE BUILDER [facility] PIF PRE 2.92 L/s 08/05/2022 2:21 PM PLASTIC FIXTURE BUILDER [facility] FEF 50 % FIF 50 PRE 68.19 % 08/05/2022 2:21 PM PLASTIC FIXTURE BUILDER [facility] FET PRE 6.19 sec 08/05/2022 2:21 PM PLASTIC FIXTURE BUILDER [facility] DLCO 9.60 ml/(min*mm Hg) 08/05/2022 2:21 PM PLASTIC FIXTURE BUILDER [facility] VA 5.02 L 08/05/2022 2:21 PM PLASTIC FIXTURE BUILDER [facility] SUBSTANCE POST Albuterol 08/05/2022 2:21 PM PLASTIC FIXTURE BUILDER [facility] 08/05/2022 12:3 1 PM PLASTIC FIXTURE BUILDER Impressions [facility] - 08/05/2022 2:21 PM PLASTIC FIXTURE BUILDER Abnormal study. Moderately reduced diffusing capacity could be due to pulmonary parenchymal or vascular disorders, or anemia. Normal spirometry with no acute bronchodilator response. Normal oximetry and inspiratory flow volume curve. Narrative Procedure Note Katey Tom M.D. - 08/05/2022 IMPRESSION: Abnormal study. Moderately reduced diffusing capacity could be due topulmonary parenchymal or vascular disorders, or anemia. Normal spirometrywith no acute bronchodilator response. Normal oximetry and inspiratoryflow volume curve. Suhail Davies M.D. PFT ORD ERABLES Performing Organization Address City/[facility] Co de Phone Number [facility] NA documented in this encounter Visit Diagnoses Diagnosis Nodule Pulmonary documented in this encounter Care Teams Electrical Design Engineer Relationship Specialty Start Date End Date Suhail Burrows M.B.B.S., M.D. [address] [place] [phone] PCP - General Family Medicine 06/09/22 documented as of this encounter
--- OUTSIDE RECORDS SUMMARY | 2023-06-26 09:14 | XMS_ITS | Encounter Summary ---
Author Name Unknown Organization [facility] Address [address] [place] [address] Care Team Providers Care Sample Display Preparer Name Role Phone Suhail Burrows M.D. Primary Care Allan fernandes Reason for Visit * Reason Onset Date Comments Pre-visit Intake 08/03/2022 Encounter Details Date Type Department Care Team (Latest Contact Info) Description 08/03/2022 12:30 PM LIVE IN HOUSEKEEPER NANNY Clinical Communication Virtual Review in [place], [place] [address] [place] [address] Pre-visit Intake Social History Tobacco Use Types Packs/Day Years [...] (Latest Contact Info) Description 06/29/2023 11:00 AM LIVE IN HOUSEKEEPER NANNY Appointment Department of Radiation Oncology in [place], [place] [address] [place] [phone] Clemente Feng M.D. [address] [place] [phone] 08/08/2023 10:30 AM LIVE IN HOUSEKEEPER NANNY Comprehensive Visit Department of Endocrinology in [place], [place] [address] [place] [place] [phone] Tomer Hinson M.D. [address] [place] [phone] Discharge Disposition: Home or Self Care documented as of this encounter Visit Diagnoses Not on filedocumented in this encounter Care Teams Sample Display Preparer Relationship Specialty Start Date End Date Suhail Burrows M.B.B.S., M.D. [address] [place] [address] [place] [phone] PCP - General Family Medicine 06/09/22 documented as of this encounter
--- OUTSIDE RECORDS SUMMARY | 2023-06-26 09:14 | XMS_ITS | Encounter Summary ---
Author Name Unknown Organization [facility] Address [address] [place] [address] Care Team Providers Care Clinical Program Coordinator Name Role Phone Suhail Burrows M.D. Primary Care P dena Reason for Referral * MRI/CAT/PET Scan (Routine) - Closed Specialty Diagnoses / Procedures Referred By Contac t Referred To Contact Radiology Diagnoses [facility] Pulmonary Procedures MR Brain without and with IV Contrast MR Brain without IV Contrast NE MRI BRAIN WO MOHANRST HC MRI BRAIN WO Suhail Gregg M.B.B.S., M.D. [address] [place] [address] [facility] Region Referral ID Status Reason Start Date Expiration Date Visits Re quested Visits Authorized [id number] Closed 07/20/2022 07/20/2023 1 1 CIATE DIRECTOR QA Reason for Visit * MRI/CAT/PET Scan (Routine) - Closed Specialty Diagnoses / Procedures Referred By Contac t Referred To Contact Radiology Diagnoses [facility] Pulmonary Procedures MR Brain without and with IV Contrast MR Brain without IV Contrast NE MRI BRAIN WO MOHANRSWillam HC MRI BRAIN WO Suhail Gregg M.B.B.S., M.D. [address] [place] [address] [facility] Region Referral ID Status Reason Start Date Expiration Date Visits Re quested Visits Authorized [id number] Closed 07/20/2022 07/20/2023 1 1 Encounter Details Date Type Department Care Team (Latest Contact Info) Description 07/28/2022 10:13 AM ASSOCIATE DIRECTOR QA - 07/28/2022 11:59 PM ASSOCIATE DIRECTOR QA Hospital Encounter Department of Radiology in [place], [place] [address] [place] [address] Suhail Burrows M.B.B.S., M.D. [address] [place] [address] [facility] Discharge Disposition: Home or Self Care Social History Tobacco Use Types Packs/Day Years Used Date Smoking Tobacco: Every Day Cigarettes 0.5 40 Smokeless Tobacco: Never Nutrition Answer Date Recorded Nutrition: EVOO Fat [...] Refills Start Date End Date amLODIPine (NORVASC) 5 mg tabletIndications:Hypert ension Essential Primary Take 1 tablet (5 mg total) by mouth daily. 90 tablet 0 06/20/2022 08/01/2022 cyclobenzaprine (FLEXERIL) 10 mg tablet 10 mg daily as needed. 0 06/09/2022 09/21/2022 documented as of this encounter Plan of Treatment Upcoming Encounters Date Type Department Care Team (Latest Contact Info) Description 06/29/2023 11:00 AM ASSOCIATE DIRECTOR QA Appointment Department of Radiation Oncology in [place], [place] [address] [place] [phone] Clemente Feng M.D. [address] [place] [address] 08/08/2023 10:30 AM ASSOCIATE DIRECTOR QA Comprehensive Visit Department of Endocrinology in [place], [place] [address] [place] [address] Tomer Hinson M.D. [address] [phone] Discharge Disposition: Home or Self Care documented as of this encounter Procedures Procedure Name Priority Date/Time Associated Diagnosis Comments MR BRAIN WITHOUT AND WITH IV CONTRAST RAD - Routine (most inpatients and all outpatients) 07/28/2022 11:02 AM ASSOCIATE DIRECTOR QA [facility] documented in this encounter Results * MR Brain without and with IV Contrast (07/28/2022 11:02 AM ASSOCIATE DIRECTOR QA) Anatomical Region Laterality Modality Head, Brain, Neuroradiology RST LOS, Neuroradiology ARZ LOS, Neuroradiology FLA LOS N/A Magnetic Resonance 07/28/2022 11:4 7 AM ASSOCIATE DIRECTOR QA Impressions 07/28/2022 11:57 AM ASSOCIATE DIRECTOR QA Numerous enhancing foci throughout the brain compatible with metastases in the setting of the identified lung mass. Narrative 07/28/2022 11:57 AM ASSOCIATE DIRECTOR QA EXAM: MR BRAIN WITHOUT AND WITH IV CONTRAST COMPARISON: None. FINDINGS: There are numerous enhancing foci throughout the brain, predominantly situated at the mullen-white junctions and including all lobes of the cerebral hemispheres, both cerebellar hemispheres, vermis and left brachium pontis. See saved images for arrows denoting the majority of these foci. There is not substantial vasogenic edema associated with these lesions. No appreciable associated hemorrhage or diffusion restriction. No abnormal calvarial or skull base lesion identified. Visualized upper cervical spine is unremarkable. Otherwise, normal brain volume and ventricular caliber. Major intracranial vascular flow voids are preserved. Paranasal sinuses and mastoid air cells are clear. Procedure Note Brandi Yoo M.D. - 07/28/2022 EXAM: MR BRAIN WITHOUT AND WITH IV CONTRAST COMPARISON: None. FINDINGS: There are numerous enhancing foci throughout the brain, predominantlysituated at the mullen-white junctions and including all lobes of the cerebral hemispheres, bothcerebellar hemispheres, vermis and left brachium pontis. See saved images for arrows denoting themajority of these foci. There is not substantial vasogenic edema associated with these lesions. Noappreciable associated hemorrhage or diffusion restriction. No abnormal calvarial or skull base lesionidentified. Visualized upper cervical spine is unremarkable. Otherwise, normal brain volume and ventricular caliber. Major intracranialvascular flow voids are preserved. Paranasal sinuses and mastoid air cells are clear. IMPRESSION: Numerous enhancing foci throughout the brain compatible with metastases inthe setting of the identified lung mass. Suhail Davies M.D. IMG MRI PROCEDURES documented in this encounter Visit Diagnoses Diagnosis [facility] Pulmonary documented in this encounter Administered Medications Inactive Administered Medications - up to 3 most recent administrations Medication Order MAR Action Action Date Dose Rate Site gadobutrol injection 0.5-15 mL (GADAVIST) 0.5-15 mL, intravenous, Once in imaging, contrast, Starting on Ama 07/28/22 at 1102, For 1 dose, Dose per Radiant Medication Guidelines Intrathecal doses greater than 0.25 mL not recommended. Given 07/28/2022 11:02 AM ASSOCIATE DIRECTOR QA 5.6 mL sodium chloride 0.9 % injection 1-250 mL 1-250 mL, intravenous, Once in imaging, line care, Starting on Ama 07/28/22 at 1102, For 1 dose Given 07/28/2022 11:02 AM ASSOCIATE DIRECTOR QA 10 mL documented in this encounter Care Teams Clinical Program Coordinator Relationship Specialty Start Date End Date Suhail Burrows M.B.B.S., M.D. [address] [place] [phone] PCP - General Family Medicine 06/09/22 documented as of this encounter
--- OUTSIDE RECORDS SUMMARY | 2023-06-26 09:14 | XMS_ITS | Encounter Summary ---
Author Name Unknown Organization [facility] Address [address] [place] [address] Care Team Providers Care Construction Project Assistant Name Role Phone Suhail Burrows M.D. Primary Care P dena Encounter Details Date Type Department Care Team (Late st Contact Info) Description 08/03/2022 Patient Outreach Department of Oncology in [place], [place] [address] [place] [phone] Sharron Hebert R.N. [address] [place] [phone] Social History Tobacco Use Types Packs/Day Years [...] as of this encounter Progress Notes * Sharron Hebert M.S.Eric., R.N., C.M.S.R.N. - 08/03/2022 2:51 PM CST RECORD REVIEW A review of the patient's records was completed and history updated as appropriate for oncology navigation screening. BACKGROUND Oncology History Overview Note Patient as current [...] for malignancy. Adenocarcinoma; consistent with lung primary. FOCUSED PAST MEDICAL HISTORY Tobacco use: Current smoker, 1992 Alcohol use: Occasional Drug use: None Previous lung cancer history: No Immunosuppression: No Anticoagulation: No Other significant history: skin melanoma ASSESSMENT Ms. Deleon is a 62 y.o. female with recently revealed lung opacity; plan for patient to present to scheduled appointments for further evaluation. Referral: Cancer Center Patient Navigators Electronically signed by: Paola Brooks, RCt, C.M.S.R.N. Oncology Nurse Navigator - Lung Service Line 08/03/22 2:[address] MAKER [address] DIE MAKER documented in this encounter Plan of Treatment Upcoming Encounters Date Type Department Care Team (Latest Contact Info) Description 06/29/2023 11:00 AM PLASTER DIE MAKER Appointment Department of Radiation Oncology in [address] [phone] Clemente Feng M.D. [address] [place] [address] 08/08/2023 10:30 AM PLASTER DIE MAKER Comprehensive Visit Department of Endocrinology in [place], [place] [address] [place] [phone] Tomer Hinson M.D. [address] [place] [phone] Discharge Disposition: Home or Self Care documented as of this encounter Visit Diagnoses Diagnosis [facility] Pulmonary- Primary documented in this encounter Care Teams Construction Project Assistant Relationship Specialty Start Date End Date Suhail Burrows M.B.B.S., M.D. [address] [place] [phone] PCP - General Family Medicine 06/09/22 documented as of this encounter
--- OUTSIDE RECORDS SUMMARY | 2023-06-26 09:14 | XMS_ITS | Encounter Summary ---
Author Name Unknown Organization [facility] Address [address] [place] [address] Care Team Providers Care Housing Manager Name Role Phone Suhail Burrows M.D. 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 [address] [place] [address] [facility] Referral ID Status Reason Start Date Expiration Date Visits Re quested Visits Authorized [id number] Closed 08/10/2022 08/10/2023 1 1 Encounter Details Date Type Department Care Team (Latest Contact Info) Description 08/18/2022 8:22 AM LEASING CONSULTANT - 08/18/2022 10:13 AM LEASING CONSULTANT Hospital Encounter Department of Radiation Oncology in [place], [place] [address] [place] [address] Yusra Lambert M.D. 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 90 tablet 3 08/01/2022 09/21/2022 cyclobenzaprine (FLEXERIL) 10 mg tablet 10 mg daily as needed. 0 06/09/2022 09/21/2022 documented as of this encounter Consult Notes * Lorena Story, MARIA G, C.N.P., M.S.N. - 08/18/2022 9:00 AM CST REQUESTING PROVIDER Miles Ballard Jr., M.D. SUBJECTIVE REASON FOR CONSULT 1. Secondary Malignant Neoplasm Brain (HCC) 2. 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) HISTORY OF PRESENT ILLNESS Miss Sandrine Deleon is a 62 y.o. right-handed female current smoker of 1/2 pack per day (started smoking in her 20s) who presents to the Department of Radiation Oncology for discussion regarding the role of radiotherapy in the management of her newly diagnosed metastatic lung cancer with innumerable brain metastases. Oncologic history is as follows: Oncology History Overview [...] Adenocarcinoma; consistent with lung primary. MCSTP pending Ms. Deleon reports to be feeling quite well overall. She reports residual discomfort to her leftlateral rib just inferior and lateral to the inframammary fold. She notices this most with twistingand getting up from a seated position. 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 She also has occasional very mild headaches for which she is not needing to take anything and these have not worsened. She denies any focal weakness, incoordination, sensory changes, hearing or visual changes, seizures, or any other neurologic changes. Her weight has been stable. She denies a prior history of radiotherapy. MEDICAL HISTORY Past Medical History: Diagnosis Date Melanoma Forearm Right (HCC) - resected from Right forearm approx year 1999, WLE with axillary lymph node dissection SURGICAL HISTORY Past Surgical History: Procedure Laterality Date BREAST BIOPSY, age 17 - benign EXCISION MELANOMA - UPPER EXTREMITY - SLNB SOCIAL HISTORY Lives in [facility]. 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 she reports that she has been smoking cigarettes. She started smoking about 30 years ago. She has a30.00 pack-year smoking history. She has never used smokeless tobacco. She reports current alcohol use. She reports that she does not use drugs. FAMILY HISTORY Family History Problem Relation Age of Onset Colon cancer Mother Colon cancer Brother Diabetes mellitus type I Brother OBJECTIVE PHYSICAL EXAMINATION There were no vitals taken for this visit. Pain assessment: 0/10 General: Alert, oriented, conversant delightful woman in no acute distress. Present with son. Head: Full head of hair. ECOG Score--1 Neuro: Cranial nerves 2-12 grossly intact. Strength is 5/5 and equal throughout. Speech is hoarse and quality. Musculoskeletal: Focal tenderness to palpation over the left 6th rib anterior laterally, corresponding to mild uptake on the PET-CT. Psych: Calm and appropriate. DIAGNOSTICS: I have reviewed the available imaging, operative and pathology reports as described above and reviewed in the EMR. EXAM: MR BRAIN WITHOUT AND WITH IV CONTRAST 07/28/2022 IMPRESSION: Numerous enhancing foci throughout the brain compatible with metastases in the setting of the identified lung mass. ASSESSMENT / PLAN 1. Secondary Malignant Neoplasm Brain (HCC) 2. 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) Ms. Deleon is seen in accompaniment with her son. We had the opportunity to review her oncologichistory including presentation, relevant imaging findings as well as current pathologic and radiological findings. She has innumerable brain metastases for which she fortunately remains asymptomatic.The tenderness to the left 6 rib anterior laterally likely to be post traumatic in nature (mild FDG uptake), but could be a focus of disease involvement as she does have other bony sites of disease. Primary is of lung origin for which we are awaiting molecular testing to determine if any targetablemutations. The likelihood of her having a targetable mutation would be expected to be quite low given her extensive smoking history. She is yet to meet with Medical Oncology. We discussed radiation considerations in the treatment of her brain metastases including palliativewhole-brain radiotherapy as well as goals the same. In review of her MRI imaging with Dr. Lambert, two lesions are quite close to the dominant left hippocampus however, one could offer partial hippocampal avoidant whole-brain radiotherapy. We reviewed the logistics of this treatment including the CT simulation, immobilization treatment planning as well as treatment process itself. Discussion includedpossible acute treatment related toxicities, including, but not limited to that of fatigue, radiation dermatitis, alopecia, nausea, headaches, as well as management of the same. We also discussed late risk of neurocognitive changes in the goals of at least partially sparing the hippocampi for neurocognitive protection. We also discussed restaging evaluations after her initial cycles of systemic therapy as well as possible future treatments to manage her brain involvement. Ms. Deleon expresses her desire for treatment at our [place] facility for her convenience. Wewill place referral accordingly in reach out to our colleagues that they can coordinate. Ultimately, she would prefer her chemotherapy be undertaken in [place] if at all possible as well but will l ikely consult with our colleagues at the [facility] to formulate a treatment plan. Explained diagnosis and treatment plan. Patient expressed understanding of this content. All questions addressed to their apparent understanding. Signed by: Lorena Story APRN, C.N.P., M.S.N. 08/17/2022 2:05 PM LEASING CONSULTANT ING CONSULTANT Associated attestation - Yusra Lambert M.D. - 08/18/2022 12:34 PM LEASING CONSULTANT is seen today at the request of her primay team, to finalize her decisions regarding palliative hippocampal-avoidance whole brain radiation therapy (ADAIR-WBRT) in the setting of over 25 individual brain metastases. At least one of these is in close proximity to her left/dominant hippocampus. Her oncologic history should be outlined in EPIC. I met and evaluated the patient; and participated in the hansen portions of the service. I reviewed the documentation of Lorena Story CNP (#[id number]), and agree with the findings and plan. Ms. Deleon is a current smoker who is recently diagnosed with metastatic non-small cell lung cancer with brain,bone, lung, liver and lymph node involvement. Her pathology is still being profiled, but the histology is consistent with adenocarcinoma. On examination, Ms. Deleon is alert and oriented. A formal neurologic exam was not performed at this visit. She appears grossly intact. The alternatives (including the option of not receiving radiation therapy), indications, technique and potential short and penitentiary complications of partial ADAIR-WBRT were discussed with the patient and her son. Any additional questions were answered. They are also aware of our departments team approach. Ms. Deleon expressed interest in proceeding with treatment in [place]. This would allow her to continue working and caring for her grandchildren. We will reach out to our colleagues accordingly. I personally spent 42 minutes in care of the patient today. Time includes both non face to face andface to face patient care. Signed by: Yusra Lambert M.D. 08/18/2022 12:27 PM LEASING CONSULTANT documented in this encounter Plan of Treatment Upcoming Encounters Date Type Department Care Team (Latest Contact Info) Description 06/29/2023 11:00 AM LEASING CONSULTANT Appointment Department of Radiation Oncology in [place], [place] [address] [place] [phone] Clemente Feng M.D. [address] [place] [address] 08/08/2023 10:30 AM LEASING CONSULTANT Comprehensive Visit Department of Endocrinology in [place], [place] [address] [facility] [place] [phone] Tomer Hinson M.D. 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) Once for 1 Occurrences starting 08/18/2022 until 08/18/2022 Radiation Oncology - Brain / GROUND EQUIPMENT MECHANIC consult (clinic) Outpatient Referral Routine 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 [address] [place] [phone] PCP - General Family Medicine 06/09/22 documented as of this encounter
--- OUTSIDE RECORDS SUMMARY | 2023-06-26 09:14 | XMS_ITS | Encounter Summary ---
Author Name Unknown Organization [facility] Address [address] [place] [address] Care Team Providers Care Mastic Sprayer Name Role Phone Suhail Burrows M.D. 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 [address] [place] [address] [facility] Referral ID Status Reason Start Date Expiration Date Visits Re quested Visits Authorized [id number] Closed 08/10/2022 08/10/2023 1 1 Scheduling Instructions Please call patient with appointments UNLOADER Encounter Details Date Type Department Care Team (Late Contact Info) Description 08/10/2022 Documentation Division of Pulmonary Medicine in [place], [place] [address] [place] [address] Miles Ballard Jr., M.D. [address] [place] [address] Social History Tobacco Use Types Packs/Day Years [...] as of this encounter Progress Notes * Miles Ballard Jr., M.D. - 08/10/2022 2:37 PM CST TELEPHONE CALL #1 Metastatic lung adenocarcinoma I called her with the results of the bronchoscopy which confirmed adenocarcinoma from the subcarinal lymph node station 7. I will order the PDL1 an MCSTP molecular marker testing on the biopsy. She mentioned that she stopped smoking. I will arrange for consultation with Medical Oncology and with Radiation Oncology given the numerous brain metastases identified. UNLOADER documented in this encounter Plan of Treatment Upcoming Encounters Date Type Department Care Team (Latest Contact Info) Description 06/29/2023 11:00 AM CAGE UNLOADER Appointment Department of Radiation Oncology in [place], [place] [address] [place] [address] Clemente Feng M.D. [address] [place] [address] 08/08/2023 10:30 AM CAGE UNLOADER Comprehensive Visit Department of Endocrinology in [place], [place] [address] [facility] [place] [phone] Tomer Hinson M.D. 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) Expected: 08/10/2022 (Approximate), Expires: 11/11/2023 documented as of this encounter Results * (ABNORMAL) Comprehensive Metabolic Panel (08/18/2022 10:25 AM CAGE UNLOADER) Potassium, S 5.3(H) 3.6 - 5.2 mmol/L 08/18/2022 11:31 AM CAGE UNLOADER DTL Sodium, S 143 135 - 145 mmol/L 08/18/2022 11:31 AM CAGE UNLOADER DTL Chloride, S 103 98 - 107 mmol/L 08/18/2022 11:31 AM CAGE UNLOADER DTL Bicarbonate, S 29 22 - 29 mmol/L 08/18/2022 11:31 AM CAGE UNLOADER DTL Anion Gap 11 7 - 15 08/18/2022 11:31 AM CAGE UNLOADER DTL BUN (Blood Urea Nitrogen), S 13 6 - 21 mg/dL 08/18/2022 11:31 AM CAGE UNLOADER DTL Creatinine 0.64 0.59 - 1.04 mg/dL 08/18/2022 11:31 AM CAGE UNLOADER DTL Estimated GFR (eGFR) >90 >=60 mL/min/BS A 08/18/2022 11:31 AM CAGE UNLOADER DTL Comment: Estimated GFR calculated using the 2020 CKD_EPI creatinine equation. Calcium, Total, S 9.9 8.8 - 10.2 mg/dL 08/18/2022 11:31 AM CAGE UNLOADER DTL Glucose, S 92 70 - 140 mg/dL 08/18/2022 11:31 AM CAGE UNLOADER DTL Protein, Total, S 6.9 6.3 - 7.9 g/dL 08/18/2022 11:31 AM CAGE UNLOADER DTL Albumin, S 4.5 3.5 - 5.0 g/dL 08/18/2022 11:31 AM CAGE UNLOADER DTL Aspartate Aminotransferase (AST), S 19 8 - 43 U/L 08/18/2022 11:31 AM CAGE UNLOADER DTL Alkaline Phosphatase, S 78 35 - 104 U/L 08/18/2022 11:31 AM CAGE UNLOADER DTL Alanine Aminotransferase (ALT), S 18 7 - 45 U/L 08/18/2022 11:31 AM CAGE UNLOADER DTL Bilirubin, Total, S 0.3 <=1.2 mg/dL 08/18/2022 11:31 AM CAGE UNLOADER DTL Blood (Blood, Venous) 08/18/2022 10:25 AM CAGE UNLOADER 08/18/2022 11:09 AM CAGE UNLOADER Miles Ballard Jr., M.D. LAB BLOOD ADD -ON [facility] [address] [place] [address], [facility] [address] [place] [address] * (ABNORMAL) CBC with Differential, Blood (08/18/2022 10:25 AM CAGE UNLOADER) Hemoglobin 14.6 11.6 - 15.0 g/dL 08/18/2022 10:56 AM CAGE UNLOADER DTL Hematocrit 45.3(H) 35.5 - 44.9 % 08/18/2022 10:56 AM CAGE UNLOADER DTL Erythrocytes 4.75 3.92 - 5.13 x10(12)/L 08/18/2022 10:56 AM CAGE UNLOADER DTL MCV 95.4 78.2 - 97.9 fL 08/18/2022 10:56 AM CAGE UNLOADER DTL RBC Distrib Width 12.6 12.2 - 16.1 % 08/18/2022 10:56 AM CAGE UNLOADER DTL Platelet Count 478(H) 157 - 371 x10(9)/L 08/18/2022 10:56 AM CAGE UNLOADER DTL Leukocytes 8.2 3.4 - 9.6 x10(9)/L 08/18/2022 10:56 AM CAGE UNLOADER DTL Neutrophils 4.80 1.56 - 6.45 x10(9)/L 08/18/2022 10:56 AM CAGE UNLOADER DTL Lymphocytes 2.61 0.95 - 3.07 x10(9)/L 08/18/2022 10:56 AM CAGE UNLOADER DTL Monocytes 0.57 0.26 - 0.81 x10(9)/L 08/18/2022 10:56 AM CAGE UNLOADER DTL Eosinophils 0.16 0.03 - 0.48 x10(9)/L 08/18/2022 10:56 AM CAGE UNLOADER DTL Basophils 0.10(H) 0.01 - 0.08 x10(9)/L 08/18/2022 10:56 AM CAGE UNLOADER DTL Blood (Blood, Venous) 08/18/2022 10:25 AM CAGE UNLOADER 08/18/2022 10:48 AM CAGE UNLOADER Miles Ballard Jr., M.D. LAB BLOOD ADD -ON [facility] [address] [place] [address], [facility] DTL [facility] [address] [place] [address] * [facility] Solid Tumor Panel, Next-Generation Sequencing, Tumor (08/08/2022 9:35 AM CAGE UNLOADER) Result PROVIDED DIAGNOSIS: METASTATIC LUNG ADENOCARCINOMA INVOLVING LYMPH NODE 09/01/2022 5:18 PM CDT DTL Additional Information Sequencing coverage greater than or equal to 100X was observed in 98% of targeted regions. Low coverage regions (< 100X coverage): ABL1 (5'UTR); ARID1A (Exon 1); CDH1 (5'UTR); CEBPA (5'UTR); EPCAM (5'UTR); ETV5 (5'UTR, Promoter); FANCE (5'UTR); FLT3 (Exon 1); GATA2 (5'UTR); GATA4 (Exon 2); IDH2 (5'UTR, Exon 1); LAMP1 (5'UTR); LZTR1 (5'UTR); MALT1 (5'UTR); MLLT3 (Exon 1); PRKDC (5'UTR); PTCH1 (5'UTR); RAB35 (5'UTR); RB1 (5'UTR, Exon 15); SDHA (Exon 1); SUZ12 (5'UTR); TGFBR1 (5'UTR); TMPRSS2 (5'UTR) Evidence-based sequence variant classification was performed according to the 2017 AMP/ASCO/CAP Joint consensus recommendation [PMID [id number]] as follows: Tier 1 - Variant with strong clinical significance; Tier 2 - Variant with potential clinical significance; Tier 3 - Variant of unknown (uncertain) clinical significance; Tier 4 - Benign or likely benign variant. Tiers 1 and 2 variants are clinically significant mutations and rearrangements. Only Tiers 1 and 2 variants are interpreted. A complete gene list is available online ([email or web address]; test code MCSTP) 09/01/2022 5:18 PM CDT DTL Clinical Trials Clinical trials associated with Tiers 1 and 2 variants that have a status of recruiting are included in the table above. 09/01/2022 5:18 PM CDT DTL Variants of Uncertain Significance The following VARIANTS OF UNCERTAIN SIGNIFICANCE were identified: APC, c.3949G>C (p.S9382N) (VAF: 40%) RASHAWN, c.745G>A (p.G249S) (VAF: 74%) B2M, c.3_6dup (p.R3fs*55) (VAF: 18%) BCR, c.1239C>G (p.I413M) (VAF: 53%) CASP8, c.1256C>T (p.T419I) (VAF: 5.3%) COP1, c.959del (p.K320fs*10) (VAF: 16%) CUX1, c.3530C>A (p.U3388X) (VAF: 16%) ERBB3, c.1661C>T (p.P554L) (VAF: 25%) ETV1, c.-2059_-2058del (VAF: 7.7%) GLI1, c.889G>T (p.E297*) (VAF: 43%) GNAS, c.-178_-171del (VAF: 73%) GRM3, c.77A>G (p.H26R) (VAF: 15%) H3C7, c.157C>T (p.R53C) (VAF: 4.6%) HSD3B1, c.81_82delinsTT (p.Z45_E60fvwhzzH*) (VAF: 34%) INSR, c.557G>T (p.C186F) (VAF: 18%) IRS1, c.1403_1404delinsAT (p.M468N) (VAF: 34%) JOEL, c.1643A>G (p.H548R) (VAF: 50%) LRP1B, c.1663C>A (p.L555M) (VAF: 32%) MAGI2, c.410C>A (p.T137K) (VAF: 17%) MAP3K4, c.2699A>G (p.Y900C) (VAF: 72%) MYC, c.503A>C (p.Q168P) (VAF: 7%) NCOR1, c.148G>A (p.V50M) (VAF: 73%) NEGR1, c.752C>A (p.P251Q) (VAF: 38%) PAK5, c.1201C>A (p.L401M) (VAF: 50%) PAX8, c.1087+190C>A (VAF: 19%) PIK3R1, c.961G>A (p.G321S) (VAF: 43%) SETBP1, c.2620G>T (p.D874Y) (VAF: 33%) SETBP1, c.3514G>T (p.N5145S) (VAF: 24%) SLIT2, c.1333C>A (p.L445I) (VAF: 8.9%) SLIT2, c.4049G>A (p.G9009O) (VAF: 29%) SMC1A, c.1914_1915delinsAT (p.A639S) (VAF: 32%) SPEN, c.5183C>T (p.O7177O) (VAF: 58%) TFRC, c.1492G>A (p.A498T) (VAF: 43%) 09/01/2022 5:18 PM CDT DTL Specimen Cells 09/01/2022 5:18 PM CDT DTL Tissue ID [id number] 09/01/2022 5:18 PM CDT DTL Method Microscopic examination was performed by a pathologist to identify areas of tumor for enrichment by macrodissection. DNA and RNA were extracted from FFPE or cytology slides, and next generation sequencing using the [employer] chemistry was performed. The following variant types and molecular profiles were evaluated: tumor mutation burden (TMB) status, microsatellite instability (MSI) status, sequence variants involving exonic regions and exon/intron boundaries of 515 genes, gene amplifications in 59 genes, fusions involving any of 55 genes, and transcript variants in 3 genes. AMP/ASCO/CAP classifications and clinical trials and therapeutic information were powered by [employer]pi[employer] - Interpret One (QCI-II). Variant nomenclature is based on build GRCh37 (hg19). For targeted gene lists, details about gene transcripts (GenBank accession numbers), specific targeted regions of each gene, and additional information on this test, see [email or web address] (Test ID MCSTP). 09/01/2022 5:18 PM CDT DTL Disclaimer CLINICAL CORRELATION S Test results should be interpreted in context of clinical findings, tumor sampling, histopathology, and other laboratory data. If results obtained do not match other clinical laboratory findings, please contact the laboratory for possible interpretation. Misinterpretation of results may occur if the information provided is inaccurate or incomplete. Of note, this test is performed to evaluate for somatic (i.e., tumor-specific) variants. Although germline (i.e., inherited) alterations may be detected, this test cannot distinguish between germline and somatic alterations. Follow-up germline testing using non-neoplastic (normal) tissue can be performed for confirmation of suspected clinically relevant germline alterations. Germline testing should be performed along with genetic counselling. The clinical trials provided are current as of the date that this report was generated and may not include all clinical trials available. Additional clinical trials can be found at clinicaltrials.gov. The presence or absence of a genetic variant may not be predictive of response to therapy in all patients. TECHNICAL LIMITATIONS Variant Allele Frequency: Variant allele frequency (VAF) is the percentage of sequencing reads supporting a specific variant divided by the total sequencing reads at that position. In somatic testing, VAF should be interpreted in the context of several factors including, but not limited to: tumor purity/heterogeneity/ copy number status (ploidy, gains/losses, loss of heterozygosity) and sequencing artifact/misalignment [PMID: 84364351, PMID: 80928604]. Tumor Purity: A tumor percentage of greater than or equal to 20% is required to perform the assay and has shown to be sufficient for accurate detection of SNVs, insertions, deletions, fusions, and splice variants. However, a tumor percentage of greater than or equal to 40% is preferred to accurately detect gene amplifications, TMB, and MSI status. A tumor percentage lower than 40% may result in false negative results for MSI and/or gene amplifications and an underestimation of TMB. Performance characteristics (accuracy, reproducibility, and analytical sensitivity) are described in the laboratory test catalog. Detection Thresholds: The sensitivity for SNVs, insertions, and deletions at or above 5% VAF was 97.9%. The sensitivity for variants with VAFs between 2-5% may be lower. Insertions and deletions are detected at 99.0% accuracy at or below 31 bp. The sensitivity for insertions and deletions larger than above 31 bps has not been determined. Gene amplifications are called by the informatics pipeline at 2.2X fold change and manually analyzed for validity in relation to tumor purity. Three supporting reads are required to call a gene fusion, and 10 supporting reads are required to call a splice/transcript variant. TMB scores are classified as TMB-Low (less than 10 mut/Mb) or TMB-High (greater than or equal to 10 mut/Mb) in accordance with the validation studies on lung cancer samples demonstrating a clinical response to immune checkpoint inhibitors. The clinical utility of the 10 mut/Mb threshold for other tumor types has not been established. MSI status is classified as MS-Stable (less than 20% microsatellite sites unstable) or MSI-High (greater than or equal to 20% unstable sites). This test can be used to report gene amplifications, but does not detect deletions or duplications. Rare polymorphisms may be present that could lead to false negative or false positive results. A negative (wild-type) result does not rule out the presence of a mutation or rearrangement that may be present but below the limits of detection of the assay. TEST CLASSIFICATION The test was developed and its performance characteristics determined by [facility] in a manner consistent with CLIA requirements. This test has not been cleared or approved by the U.S. Food and Drug Administration. 09/01/2022 5:18 PM CDT DTL Released By Eliot Jang M.D., Ph.D. 09/01/2022 5:18 PM CDT DTL Interpretation RNA testing revealed no evidence of fusions or splice/transcript variants. TUMOR MUTATIONAL BURDEN (TMB)/MICROSATELLITE INSTABILITY (MSI): TMB: High (19.6 mutations/Mb) MSI: Stable (JAMIE) Adult and pediatric solid tumors with high tumor mutational burden (TMB-H), defined as ten or more mutations per megabase, may respond to immune check point inhibitors [PMID: 22613056]. 1) CCNE1 amplification GENE/VARIANT SUMMARY CCNE1 amplification ([id number]) is an activating alteration. CCNE1 encodes the Cyclin E1 protein, which binds to and activates Cdk2 to promote cell cycle progression. It also has a direct role in initiation of replication and maintenance of genomic stability. Activation or amplification of CCNE1 may result in increased cell proliferation [PMID:93102344]. Amplification of CCNE1, which is located at chromosome 19q12, has been correlated with expression of the Cyclin E1 protein, cell growth, and invasion in several tumor types [PMID:02167839, PMID:11454555, PMID:25103834, PMID:35349451, PMID:85070504]. High-level amplification of CCNE1 has been reported in 2-6% of lung adenocarcinoma cases [[facility] (Apr 2021)]. THERAPEUTIC IMPLICATIONS Drug sensitivity: At present there are no drugs that directly target Cyclin E1. However, tumors with CCNE1 amplification or activating mutations may be sensitive to inhibitors of Cdk2, the protein that Cyclin E1 binds and activates. Cyclin-dependent kinase (Cdk) inhibitors that target a variety of Cdks, including Cdk2, are under investigation in early phase clinical trials [PMID:37881758, PMID:58542294]. The efficacy of this therapeutic approach has been reported in preclinical studies of breast and ovarian cancer cells with CCNE1 amplification or Cyclin E1 overexpression, in which treatment with Cdk2 inhibitors resulted in decreased proliferation and increased apoptosis in the cancer cells and reduced metastatic colonization in xenograft models [PMID:06667937, PMID:75003321]. The combination of Cdk2 and either Akt or PI3K inhibitors in cancer cells with CCNE1 amplification has also been reported to be effective in preclinical studies [PMID:26568188, PMID:71217468]. In addition, preliminary results from a Phase 2 trial of the Wee1 inhibitor adavosertib in patients with circle-resistant ovarian cancer indicated that CCNE1 amplification may be positively associated with response. Drug resistance: CCNE1 amplification has been implicated in resistance to Cdk4/6 inhibition in preclinical models of breast and ovarian cancer [PMID:71294742, PMID:57891692]. FDA Approved Drugs: None. 2) EGFR amplification GENE/VARIANT SUMMARY EGFR amplification ([id number]) is an activating alteration. EGFR encodes a receptor tyrosine kinase that activates multiple signaling pathways, such as Jorge/Leonel/MAPK and PI3K, and stimulates the cell proliferation [PMID:81019343, PMID:43805122, PMID:04644080]. Amplification, mutation, and overexpression of EGFR result in constitutive activation of downstream signaling systems, including the JORGE/MAPK and PI3K/AKT pathways and cause excessive proliferation and tumor formation [PMID:40416792, PMID:95493581]. High-level EGFR gene amplification, which is located at chromosome 7p11, has been correlated with elevated Egfr protein expression, as measured by immunohistochemistry, although this correlation is not consistent for low-level gene amplification [PMID:77560113, PMID:89161629, PMID:22020672, PMID:31188722, PMID:91677421, PMID:74059652]. High-level amplification of EGFR has been reported in 5-9% of lung adenocarcinoma cases [[facility] (Apr 2021)]. THERAPEUTIC IMPLICATIONS Drug sensitivity: EGFR amplification or increased copy number may result in elevated Egfr protein expression and thus predict sensitivity to Egfr targeted therapies. The Egfr tyrosine kinase inhibitors (TKIs) erlotinib, afatinib, gefitinib, osimertinib, and dacomitinib have been approved for the treatment of non-small cell lung carcinoma (NSCLC) with specific EGFR mutations; however, only modest clinical benefit for gefitinib or erlotinib has been reported in patients harboring EGFR amplification without concurrent sensitizing mutations [PMID:25044837, PMID:24310118, PMID:70780443, PMID:22324647, PMID:17327936, PMID:07473495, PMID:13106613, PMID:67232291]. Drug resistance: EGFR amplification has been reported as an acquired alteration in 15.5% (16/103) of EGFR [id number] or N271U-doftcl NSCLC patients who were treated with Egfr TKI and in 9.7% (3/31) of patients treated with Egfr TKI in combination with bevacizumab [PMID:22511250]. FDA Approved Drugs: None. 3) NF1 c.1722-1G>A (VAF: 15%) GENE/VARIANT SUMMARY NF1 splice site 1722-1G>A ([id number]) is predicted to be an inactivating mutation. NF1 encodes neurofibromin, a GTPase-activating protein (GAP) that is a hansen negative regulator of the Jorge signaling pathway [PMID:9332974]. NF1 acts as a tumor suppressor by suppressing Jorge signaling, and mutations have been identified across the entire NF1 gene [PMID:0784084]. Tumors with mutations in NF1 have therefore been predicted to have activation of Jorge and associated downstream pathways, including the Jorge-MAPK pathway and the mTOR pathway [PMID:4461974, PMID:99363054, PMID:56419281]. The NF1 splice site 1722-1G>A alteration occurs at a conserved splice acceptor site at the splice junction between transcribed exons 15 and 16, corresponding to amino acid 574 out of 2839 in the neurofibromin protein (IGV). Splice site mutations may lead to exon skipping or protein truncation. Therefore, a splicing error at this position may disrupt or remove the majority of the protein, including the GAP-related domain (GRD), which is primarily responsible for inhibition of the Jorge pathway (InterPro) [PMID:6339147, PMID:10370683, PMID:07996898, PMID:08394838]. Splicing errors resulting in exon skipping have been reported to occur in patients with neurofibromatosis type 1, with one study reporting splice site mutations in 38% of cases [PMID:77282520, PMID:17655429]. Therefore, although this alteration has not been characterized, it is predicted to be inactivating. NF1 mutations have been reported in 7-12% of lung adenocarcinoma samples analyzed [[facility] (Apr 2021), [employer] [employer] [facility] (Apr 2021). THERAPEUTIC IMPLICATIONS Drug sensitivity: Loss of neurofibromin function may result in increased signaling through the Jorge pathway and downstream MAPK and mTOR pathways [PMID:55637133]. Tumors bearing NF1 mutations may therefore be sensitive to mTOR and MAPK inhibitors. The mTOR inhibitors everolimus and temsirolimus have been approved by the FDA, CHRISSY, and PMDA for some indications and are currently in clinical trials for solid tumors [PMID:90101983, PMID:70519595]. Several inhibitors designed to target both the mTORC1/Raptor and mTORC2/Rictor complexes are being tested in early phase clinical trials for advanced solid tumors [PMID:26581170]. Drug resistance: Reduced neurofibromin expression has been reported to be associated with resistance to Egfr inhibitors in both lung adenocarcinoma tumors and in an EGFR-driven mouse model of lung cancer [PMID:81743596]. FDA Approved Drugs: None. 4) RAF1 c.779C>T (p.T260I) (VAF: 44%) GENE/VARIANT SUMMARY RAF1 T260I (NM_[id number]) is predicted to be an activating mutation. RAF1 encodes c-Leonel/Leonel-1, a member of the Leonel family of signaling kinases that also includes A-Leonel and B-Leonel [PMID:51584760]. Activating alterations of RAF1 result in activation of the MEK/ERK signaling pathway, which may promote cell proliferation and survival [PMID:30348522]. RAF1 T260I is a missense alteration that occurs prior to the protein kinase domain of Raf1 (UniProt). RAF1 T260I has been reported as a germline alteration in a hypertrophic cardiomyopathy patient [PMID:21390394]. RAF1 T260I has been reported to result in decreased association with inhibitory 14-3-3 proteins and increased kinase activity as compared with wild-type RAF1, leading to constitutive activation of the Jorge/MAPK pathway [PMID:57504787]. RAF1 mutations have been reported in less than 1% of lung adenocarcinoma samples analyzed [[facility] (Apr 2021), [facility] (Apr 2021)]. THERAPEUTIC IMPLICATIONS Drug sensitivity: Leonel-1 signals upstream of the MAPK pathway, and activating RAF1 alterations may confer sensitivity to inhibitors of Leonel-1 and/or components of the MAPK pathway, including MEK [PMID:28648755]. Sorafenib, an inhibitor of several tyrosine kinases, including Leonel-1 and both wild-type and mutant Braf, has been approved in advanced renal cell carcinoma, advanced hepatocellular carcinoma, and some types of advanced thyroid carcinoma, and is in clinical trials in multiple tumor types [PMID:19567101]. Braf and Leonel-1 are among the targets of regorafenib, a multi-kinase inhibitor approved to treat metastatic colorectal cancer, advanced gastrointestinal stromal tumors (GIST), and hepatocellular carcinoma [PMID:53281688, PMID:14010718, PMID:98761268, PMID:31450885, PMID:02869686]. Drug resistance: None. FDA Approved Drugs: None. 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 DDR2 encodes Discoidin Domain-containing Receptor 2 (Ddr2), a tyrosine kinase involved in normal bone development [PMID:1818632, PMID:33655249, PMID:44069347]. Ddr2 has been reported to be overexpressed in several types of carcinoma and to be involved in cell proliferation and invasion, likely via activation of MMP2 [PMID:84233349, PMID:05523812]. Ddr2 activation, either through amplification or mutation, may predict sensitivity to dasatinib and other small molecule tyrosine kinase inhibitors [PMID:23466606, PMID:63095224]. DDR2 Y740C is a missense alteration within the protein kinase domain of the Ddr2 protein, at a Src phosphorylation site (UniProt) [PMID:54955017]. DDR2 Y740C has been reported as a pathogenic alteration in patients with Warburg-Cinotti syndrome; this alteration has been reported to result in autophosphorylation of Ddr2 and be sensitive to dasatinib in vitro [PMID:38181393]. DDR2 mutations have been reported in up to 6% of lung adenocarcinoma samples analyzed [COSMIC (Apr 2021), [facility] (Apr 2021)]. THERAPEUTIC IMPLICATIONS Drug sensitivity: Ddr2 activation, either through amplification or mutation, may predict sensitivity to small molecule tyrosine kinase inhibitors [PMID:20163367]. Imatinib, nilotinib, and dasatinib have been FDA approved in some cancer types, are under investigation in numerous other cancer types, and have been reported to have preclinical or clinical activity against Ddr2 [PMID:86602453, PMID:08163745, PMID:68822026, PMID:18970776, PMID:35951000, PMID:49202029]. Drug resistance: DDR2 depletion has been reported to increase sensitivity to anti-PD-1 therapy in preclinical cancer models [PMID:36009056]. FDA Approved Drugs: None. 6) FAT1 c.4447C>T (p.Q1483*) (VAF: 19%) GENE/VARIANT SUMMARY FAT1 Q1483* ([id number]) is an inactivating mutation. The FAT1 cadherin gene, encoding Fat1, has been implicated as a negative regulator of Wnt signaling by inhibiting beta-catenin nuclear localization and transcriptional activity [PMID:48532793, PMID:55756984]. Fat1 has been characterized in preclinical studies as a tumor suppressor that disrupts Wnt pathway signaling and reduces cell proliferation, growth, migration, and invasion [PMID:60916948, PMID:71362783, PMID:28796681]. However, Fat1 has also exhibited characteristics of an oncogene in some cancer types [PMID:04012685, PMID:50983943]. The FAT1 alteration reported here is expected to truncate the 4588-amino acid Fat1 protein, resulting in the loss of the majority of the cytoplasmic domain (UniProt). Loss of the PTB-like domain, which lies in the cytoplasmic domain, has been reported to result in altered Fat1 localization as well as changes in cell migration [PMID:88355849, PMID:56168315]. Therefore, this alteration is predicted to be inactivating. FAT1 mutations have been reported in up tp 13% of lung adenocarcinoma samples analyzed [COSMIC (Apr 2021), [facility] (Apr 2021)]. THERAPEUTIC IMPLICATIONS Drug sensitivity: At present, there are no approved therapies that target FAT1 mutation, Fat1 inactivation, beta-catenin activation, or Wnt pathway activation; however, Wnt pathway inhibitors are currently being studied preclinically and in early clinical trials for solid tumors [PMID:37709006, PMID:39476641, PMID:35045294, PMID:17227420, PMID:07695514, PMID:44165984]. Fat1 has exhibited characteristics of an oncogene in some cancer types [PMID:35358716, PMID:30691678]. Therefore, the potential relevance of any targeted therapies must be carefully considered in each situation. Several studies have reported FAT1 mutations in NSCLC to be associated with clinical benefit following treatment with immune checkpoint inhibitors [PMID:88785436, PMID:52774103, PMID:17458784]. Drug resistance: None. FDA Approved Drugs: None. 7) SMAD4 c.670C>T (p.Q224*) (VAF: 27%) GENE/VARIANT SUMMARY SMAD4 Q224* ([id number]) is an inactivating mutation. SMAD4 (DPC4) encodes the Smad4 protein, a anhydrous ammonia production supervisor factor downstream of TGF-beta [PMID:11660177]. A dual role for the TGF-beta/Smad4 signaling network in cancer has been described based on preclinical data, with a tumor suppressor function in tumor initiation, and a tumor-promoting function in later stages of invasion and metastasis [PMID:23329737]. The alteration reported here is expected to truncate the 552-amino acid Smad4 protein within or prior to the MH2 domain (UniProt), which is involved in transcriptional activation and homo-oligomer formation [PMID:40752850]. Several residues in the MH2 domain are highly conserved; SMAD4 D537 specifically is a hotspot for missense alterations and has been reported to be critical to the formation of homo-oligomeric complexes and Smad4 function [PMID:09132160, PMID:7734134, PMID:23758368, PMID:61489037]. In addition, several truncating mutations at SMAD4 E538 have been reported in COSMIC (Aug 2020) and SMAD4 loss of heterozygosity has been reported in a tumor harboring an E538 truncation [PMID:08035255]. This alteration is also likely to elicit nonsense-mediated decay [PMID:79108424, PMID:15263801, PMID:1085484, PMID:24017120]. Therefore, this alteration is predicted to be inactivating. SMAD4 mutations have been reported in up to 4% of lung adenocarcinoma samples analyzed [COSMIC (Apr 2021), [facility] (Apr 2021)]. THERAPEUTIC IMPLICATIONS Drug sensitivity: At present there are no therapies available to address the loss of SMAD4 in cancer. Several compounds that are selectively cytotoxic to Smad4 (DPC4) deficient tumor cells as compared to Smad4 wild-type cells have been identified in preclinical studies [PMID:64282143, PMID:07370544]. Drug resistance: None. FDA Approved Drugs: None. 8) TP53 c.536A>G (p.H179R) (VAF: 46%) GENE/VARIANT SUMMARY TP53 H179R ([id number]) is an inactivating mutation. TP53 is a tumor suppressor gene that encodes p53, a anhydrous ammonia production supervisor factor involved in DNA damage cell cycle checkpoint, cell cycle arrest and apoptosis [PMID:37495125, PMID:2108751]. Inactivation of TP53, mainly through mutations, deletions and allelic imbalance, is commonly implicated in tumorigenesis [PMID:59541413]. Oncomorphic or rkob-wv-whgxemmf properties of TP53 that lead to increased anhydrous ammonia production supervisor of several genes associated with cell survival and chemoresistance also contribute to tumorigenesis [PMID:4353872, PMID:04510767, PMID:37190491, PMID:51457623, PMID:46320539, PMID:54711603, PMID:89323688, PMID:62840548]. TP53 H179R is a missense alteration located within the DNA-binding domain (DBD) of the p53 protein [PMID:87001128]. DBD mutations are thought to result in loss of function via the loss of transactivation of l50-gcrnqcrug genes [PMID:17607560]. H179 has been shown to be required for the coordination of a zinc atom critical for the proper folding of the p53 protein, and H179R has been shown to result in substantially reduced transactivation activity, as compared with wild-type TP53, in yeast assays (The TP53 Database) [PMID:71935690, PMID:46675851, PMID:41133879, PMID:26173744]. TP53 mutations have been reported in 39-53% of lung adenocarcinoma samples analyzed [COSMIC (Apr 2021), [facility] (Apr 2021)]. THERAPEUTIC IMPLICATIONS Drug sensitivity: At present, there are no approved therapies targeting TP53 alterations, despite their high prevalence in cancer. Therapeutic approaches under investigation include gene therapy for TP53 and (dendritic cell-based) TP53 vaccines [PMID:96827520, PMID:00932008, PMID:80448641]. Inhibition of components of the DNA damage checkpoint, including Wee1, has been reported to enhance the activity of DNA-damaging agents in preclinical cancer models with deficiency of p53 function [PMID:52062197, PMID:12616649, PMID:64734995]. Clinical trials of the Wee1 inhibitor adavosertib ([id number]) are currently underway for patients with solid tumors and hematologic malignancies. Studies have reported Ruthie kinase A to be activated in cells harboring TP53 mutation, and Ruthie kinase A and B inhibitors have been reported to activate wild-type p53 in cellular assays; thus, tumors retaining a wild-type TP53 allele may benefit from Ruthie kinase inhibitors [PMID:88181412, PMID:84884323, PMID:18930450, PMID:09641610, PMID:57520003, PMID:61878664]. Drug resistance: Mutations in TP53 may increase resistance to ionizing radiation therapy [PMID:10116609, PMID:20444143]. FDA Approved Drugs: None. 9) B2M c.3_6dup (p.R3fs*55) (VAF: 18%) GENE/VARIANT SUMMARY The effect of B2M R3fs*55 is predicted to be an inactivating mutation. B2M encodes beta2-microglobulin (B2-microglobulin), an essential component of the MHC class 1 complex (MHC-1) [PMID:36157047, PMID:54189712]. While serum B2-microglobulin levels are elevated in several pathogenic conditions, inactivation of B2M by mutation or deletion has been reported in several types of cancer and is associated with immune evasion [PMID:71178944, PMID:98885622, PMID:25426129, PMID:94189191, PMID:93657319]. B2M R3fs*55 is a frameshift alteration that is expected to result in premature truncation of the beta2-microglobulin protein. In addition, this alteration is likely to elicit nonsense-mediated decay [PMID:53227678, PMID:27658857, PMID:5409823, PMID:56213932]. Therefore, this alteration is predicted to lead to a loss of protein function. B2M mutations have been reported in up tp 2% of lung adenocarcinoma samples analyzed [COSMIC (Apr 2021), [facility] (Apr 2021)]. THERAPEUTIC IMPLICATIONS Drug sensitivity: There are no known therapeutic approaches to target B2M. Drug resistance: Some studies have suggested that loss of B2-microglobulin function may be associated with resistance to immunotherapies that function through stimulation of cytotoxic T-lymphocyte (CTL) mediated cell [PMID:89474761, PMID:88636257, PMID:47977429]. B2M homozygous loss has been identified in an NSCLC patient with acquired resistance to anti-PD-L1 and anti-CTLA4 treatment and B2M knockout conferred resistance to PD-1 inhibition in a lung cancer mouse model [PMID:35538125]. FDA Approved Drugs: None. 09/01/2022 5:18 PM CDT DTL Tissue (Abdomen) 08/08/2022 9:35 AM CAGE UNLOADER 08/16/2022 3:32 PM CAGE UNLOADER Narrative Resulting Agency Comment [id number] Miles Ballard Jr., M.D. LAB GENETIC T [facility] [address] [place] [address], 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 [address] [place] [address] JOSEFA Alvarez [phone] PCP - General Family Medicine 06/09/22 documented as of this encounter
--- OUTSIDE RECORDS SUMMARY | 2023-06-26 09:14 | XMS_ITS | Encounter Summary ---
Author Name Unknown Organization [facility] Address [address] [place] [address] Care Team Providers Care Destination Specialist Name Role Phone Suhail Burrows M.D. Primary Care Allan fernandes Encounter Details Date Type Department Care Team (Late st Contact Info) Description 08/08/2022 8:05 AM HOSPITAL LIBRARIAN Ancillary Procedure Department of Pulmonary and CC Medicine Social History Tobacco Use Types Packs/Day Years [...] (Latest Contact Info) Description 06/29/2023 11:00 AM HOSPITAL LIBRARIAN Appointment Department of Radiation Oncology in [place], [place] [address] [place] [address] Clemente Feng M.D. [address] [place] [address] 08/08/2023 10:30 AM HOSPITAL LIBRARIAN Comprehensive Visit Department of Endocrinology in [place], [place] [address] [facility] [place] [address] Tomer Hinson M.D. [address] [facility] [place] [address] Discharge Disposition: Home or Self Care documented as of this encounter Procedures Procedure Name Priority Date/Time Associated Diagnosis Comments PULMONARY AND CC MEDICINE IMAGE EXAM Routine 08/08/2022 8:05 AM HOSPITAL LIBRARIAN documented in this encounter Results * EBUS-Pulmonary And CC Medicine Image Exam (08/08/2022 8:05 AM HOSPITAL LIBRARIAN) 08/08/2022 8:03 AM HOSPITAL LIBRARIAN Narrative IIMS - 08/08/2022 9:06 AM HOSPITAL LIBRARIAN This order has been created and auto-finalized to support the import of images acquired without order. The clinical documentation to support these images can be found on the encounter that produced images. Provider Not In System IMG NON RAD IMAGI NG PROCEDURES [facility] NA documented in this encounter Visit Diagnoses Not on filedocumented in this encounter Care Teams Destination Specialist Relationship Specialty Start Date End Date Suhail Burrows M.B.B.S., M.D. [address] [place] [address] [place] [address] PCP - General Family Medicine 06/09/22 documented as of this encounter
--- OUTSIDE RECORDS SUMMARY | 2023-06-26 09:14 | XMS_ITS | Encounter Summary ---
Author Name Unknown Organization [facility] Address [address] [place] [address] Care Team Providers Care Data Operations Director Name Role Phone Suhail Burrows M.D. Primary Care Allan fernandes Reason for Visit * Reason Onset Date Comments Triage 08/10/2022 Encounter Details Date Type Department Care Team (Late st Contact Info) Description 08/10/2022 Clinical Communication Department of Oncology in [place], [place] [address] [place] [address] Thai Morris, P.A.-C. Triage Social History Tobacco [...] encounter Miscellaneous Notes * Telephone Encounter - Camryn Lopez - 08/12/2022 11:06 AM CST Done called Pulmonary to confirm date. ERNMAKER METAL BENCH documented in this encounter Plan of Treatment Upcoming Encounters Date Type Department Care Team (Latest Contact Info) Description 06/29/2023 11:00 AM PATTERNMAKER METAL BENCH Appointment Department of Radiation Oncology in [place], [place] [address] [place] [address] Clemetne Feng M.D. [address] [place] [address] 08/08/2023 10:30 AM PATTERNMAKER METAL BENCH Comprehensive Visit Department of Endocrinology in [place], [place] [address] [place] [phone] Tomer Hinson M.D. [address] [place] [phone] Discharge Disposition: Home or Self Care documented as of this encounter Visit Diagnoses Not on filedocumented in this encounter Care Teams Data Operations Director Relationship Specialty Start Date End Date Suhail Burrows M.B.B.S., M.D. [address] [place] [phone] PCP - General Family Medicine 06/09/22 documented as of this encounter
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
--- OUTSIDE RECORDS SUMMARY | 2023-06-26 09:14 | XMS_ITS | Encounter Summary ---
Author Name Unknown Organization [facility] Address [address] [place] [address] Care Team Providers Care Piece Work Checker Name Role Phone Suhail Burrows M.D. Primary Care P dena Encounter Details Date Type Department Care Team (Late st Contact Info) Description 08/12/2022 Orders Only Department of Oncology in [place], [place] [address] [place] [phone] Thai Morris, P.A.-C. Social History Tobacco Use Types Packs/Day Years [...] (Latest Contact Info) Description 06/29/2023 11:00 AM NO EXPERIENCE Appointment Department of Radiation Oncology in [place], [place] [address] [place] [phone] Clemente Feng M.D. [address] [place] [address] 08/08/2023 10:30 AM NO EXPERIENCE Comprehensive Visit Department of Endocrinology in [place], [place] [address] [place] [phone] Tomer Hinson M.D. [address] [place] [phone] Discharge Disposition: Home or Self Care documented as of this encounter Visit Diagnoses Not on filedocumented in this encounter Care Teams Piece Work Checker Relationship Specialty Start Date End Date Suhail Burrows M.B.B.S., M.D. [address] [place] [address] [place] [phone] PCP - General Family Medicine 06/09/22 documented as of this encounter
--- OUTSIDE RECORDS SUMMARY | 2023-06-26 09:14 | XMS_ITS | Encounter Summary ---
Author Name Unknown Organization [facility] Address [address] [place] [address] Care Team Providers Care Assistant Men'S Lacrosse Coach Name Role Phone Suhail Burrows M.D. Primary Care Allan fernandes Reason for Referral * MRI/CAT/PET Scan (Routine) - Closed Specialty Diagnoses / Procedures Referred By Yelena griffin Referred To Contact Diagnoses Nodule Pulmonary Procedures PET CT Skull to Thigh FDG Suhail Burrows M.B.B.S., M.D. [address] [place] [address] [facility] Referral ID Status Reason Start Date Expiration Date Visits Re quested Visits Authorized [id number] Closed 07/20/2022 07/20/2023 1 1 INE IRONER Reason for Visit * MRI/CAT/PET Scan (Routine) - Closed Specialty Diagnoses / Procedures Referred By Yelena griffin Referred To Contact Diagnoses Nodule Pulmonary Procedures PET CT Skull to Thigh FDG Suhail Burrows M.B.B.S., M.D. [address] [place] [address] [facility] Referral ID Status Reason Start Date Expiration Date Visits Re quested Visits Authorized [id number] Closed 07/20/2022 07/20/2023 1 1 Encounter Details Date Type Department Care Team (Latest Contact Info) Description 08/05/2022 9:51 AM MACHINE IRONER - 08/05/2022 2:32 PM MACHINE IRONER Hospital Encounter Department of Radiology, [facility], in [place], [place] [address] [place] [address] Suhail Burrows M.B.B.S., M.D. [address] [place] [address] Nodule Pulmonary Discharge Disposition: Home or Self [...] (Latest Contact Info) Description 06/29/2023 11:00 AM MACHINE IRONER Appointment Department of Radiation Oncology in [place], [place] [address] [place] [phone] Clemente Feng M.D. [address] [place] [address] 08/08/2023 10:30 AM MACHINE IRONER Comprehensive Visit Department of Endocrinology in [place], [place] [address] [place] [phone] Tomer Hinson M.D. [address] [place] [phone] Discharge Disposition: Home or Self Care documented as of this encounter Procedures Procedure Name Priority Date/Time Associated Diagnosis Comments PET CT SKULL TO THIGH RAD - Routine (most inpatients and all outpatients) 08/05/2022 11:40 AM MACHINE IRONER Nodule Pulmonary documented in this encounter Results * PET CT Skull to Thigh FDG (08/05/2022 11:40 AM MACHINE IRONER) Anatomical Region Laterality Modality Body, Nuclear Medicine PET R ST LOS, PET ARZ LOS, Nuclear Medicine PET FLA LOS, Nuclear Medicine N/A Positron Emission Tomography (PET), Positron Emission Tomography (PET) 08/05/2022 1:56 PM MACHINE IRONER Impressions 08/05/2022 8:37 PM MACHINE IRONER 1. Overall findings most consistent with lung malignancy with pulmonary, helga, osseous, hepatic metastasis. Please see the same day brain MRI for brain findings. 2. Small focus of FDG uptake at the right parotid gland, could be from a parotid primary, metastatic or a lymph node. Narrative 08/05/2022 8:37 PM MACHINE IRONER EXAM: ??PET CT SKULL TO THIGH FDG Serum glucose at time of F-18 FDG injection was 106 mg/dL. Patient followed standard dietary/fasting requirements for this exam. RADIOPHARMACEUTICAL/MEDS: Route: intravenous fludeoxyglucose F 18 injection CUSTODIAL (FDG F-18),14.91 millicurie TECHNIQUE: ??F-18 FDG PET/CT scan was performed from the vertex through the upper thighs with low dose, non-contrast, free-breathing CT images for attenuation correction and anatomic localization (AC/AL), with imaging beginning at approximately 60 minutes after radiotracer injection. ? COMPARISON: ??07/28/2022 MRI brain, 07/05/2022 CT chest. INDICATION: ??Suspected lung cancer initial staging Initial treatment strategy. The patient reports no recent vaccinations. FINDINGS: ?? Markedly avid left lower lobe lung mass, SUV max 8.7 (image 111). There are adjacent hypermetabolic tiny nodules/opacities. In addition mildly hypermetabolic 6 mm pulmonary nodule at the posterior segment of the upper lobe of the right lung best seen on image number 100. Small centrally cystic/necrotic nodule at the middle lobe of the right lung best seen on image number 131 with mild FDG uptake. Markedly FDG avid left hilar nodes, example SUV max 8.5 (image 107), and subcarinal mediastinal nodes, SUV max 12.5 (image 109). Mildly FDG avid right mediastinal nodes including a tiny node adjacent to the proximal right subclavian artery, SUV max 3.4 (image 89), and right paratracheal node, SUV max 3.2 (fused image 91). Tiny enhancing foci throughout the brain seen on comparison brain MRI are below the resolution of PET/CT. Moderate multifocal osseous uptake consistent with metastatic disease. For example within the left sacrum, SUV max 7.5 (image 194), left iliac bone (image 194), right sacrum (image 23), right femur (image 239), right L5 vertebral body (image 187) right L2 pedicle (image 159), left T12 pedicle (image 143, and right humeral head (image 80). Small focus at the left mandible, could be from periodontal disease or metastatic. Focal mild FDG uptake within the left sixth rib, SUV max 3.8 (image 125). Likely posttraumatic mild FDG uptake within the right seventh rib associated with a healing fracture. Additional contiguous healing fractures of the right fifth and sixth ribs. Focal moderate FDG uptake within the left hepatic lobe SUV max 4.2 (image 151). Small focus of FDG uptake within the right parotid gland. Significant incidental findings on the low-dose unenhanced CT images: Emphysema. Advanced arterial atherosclerotic calcifications including coronary artery calcifications. Mitral annular calcifications. Left adrenal gland thickening/nodule better demonstrated on the present chest CT. Focal right renal cortical scarring/calcification Procedure Note Yanique Kee M.D. - 08/05/2022 EXAM: PET CT SKULL TO THIGH FDG Serum glucose at time of F-18 FDG injection was 106 mg/dL. Patientfollowed standard dietary/fasting requirements for this exam. RADIOPHARMACEUTICAL/MEDS: Route: intravenous fludeoxyglucose F 18 injection CUSTODIAL (FDG F-18),14.91 millicurie TECHNIQUE: F-18 FDG PET/CT scan was performed from the vertex through theupper thighs with low dose, non-contrast, free-breathing CT images for attenuation correctionand anatomic localization (AC/AL), with imaging beginning at approximately 60 minutes afterradiotracer injection. COMPARISON: 07/28/2022 MRI brain, 07/05/2022 CT chest. INDICATION: Suspected lung cancer initial staging Initial treatmentstrategy. The patient reports no recent vaccinations. FINDINGS: Markedly avid left lower lobe lung mass, SUV max 8.7 (image 111). Thereare adjacent hypermetabolic tiny nodules/opacities. In addition mildly hypermetabolic 6 mm pulmonarynodule at the posterior segment of the upper lobe of the right lung best seen on image number 100.Small centrally cystic/necrotic nodule at the middle lobe of the right lung best seen onimage number 131 with mild FDG uptake. Markedly FDG avid left hilar nodes, example SUV max 8.5 (image 107), andsubcarinal mediastinal nodes, SUV max 12.5 (image 109). Mildly FDG avid right mediastinal nodesincluding a tiny node adjacent to the proximal right subclavian artery, SUV max 3.4 (image 89),and right paratracheal node, SUV max 3.2 (fused image 91). Tiny enhancing foci throughout the brain seen on comparison brain MRI arebelow the resolution of PET/CT. Moderate multifocal osseous uptake consistent with metastatic disease. Forexample within the left sacrum, SUV max 7.5 (image 194), left iliac bone (image 194), right sacrum(image 23), right femur (image 239), right L5 vertebral body (image 187) right L2 pedicle ([id number]), left T12 pedicle (image 143, and right humeral head (image 80). Small focus at the leftmandible, could be from periodontal disease or metastatic. Focal mild FDG uptake within the left sixth rib, SUV max 3.8 (image 125).Likely posttraumatic mild FDG uptake within the right seventh rib associated with a healingfracture. Additional contiguous healing fractures of the right fifth and sixth ribs. Focal moderate FDG uptake within the left hepatic lobe SUV max 4.2 ([id number]). Small focus of FDG uptake within the right parotid gland. Significant incidental findings on the low-dose unenhanced CT images:Emphysema. Advanced arterial atherosclerotic calcifications including coronary artery calcifications.Mitral annular calcifications. Left adrenal gland thickening/nodule better demonstratedon the present chest CT. Focal right renal cortical scarring/calcification IMPRESSION: 1. Overall findings most consistent with lung malignancy with pulmonary,helga, osseous, hepatic metastasis. Please see the same day brain MRI for brain findings. 2. Small focus of FDG uptake at the right parotid gland, could be from aparotid primary, metastatic or a lymph node. Suhail Davies M.D. [facility] PROCEDURES documented in this encounter Visit Diagnoses Diagnosis Nodule Pulmonary documented in this encounter Administered Medications Inactive Administered Medications - up to 3 most recent administrations Medication Order MAR Action Action Date Dose Rate Site fludeoxyglucose F 18 injection CUSTODIAL (FDG F-18) 4.5-16.5 millicurie, intravenous, Once, On Mon08/05/22 at 1145, For 1 dose, Imaging Protocol Orders Given 08/05/2022 10:10 AM MACHINE IRONER 14.91 millicuries Right Hand documented in this encounter Care Teams Assistant Men'S Lacrosse Coach Relationship Specialty Start Date End Date Suhail Burrows M.B.B.S., M.D. [address] [place] [phone] PCP - General Family Medicine 06/09/22 documented as of this encounter
--- OUTSIDE RECORDS SUMMARY | 2023-06-26 09:14 | XMS_ITS | Encounter Summary ---
Author Name Unknown Organization [facility] Address [address] [place] [id number] Care Team Providers Care Compliance Examiner Name Role Phone Suhail Burrows M.D. Primary Care P [email or web address] Encounter Details Date Type Department Care Team (Late st Contact Info) Description 08/10/2022 3:15 PM DATA MINING ANALYST Lab RST RO LMP [address] [place] [phone] Miles Ballard Jr., M.D. 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 [address] [place] [address] [place] [phone] 08/08/2023 10:30 AM DATA MINING ANALYST Comprehensive Visit Department of Endocrinology in [place], [place] [address] [place] [phone] Tomer Hinson M.D. 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 Tiers 1 and 2 variants are clinically significant mutations and rearrangements. Only Tiers 1 and 2 variants are interpreted. A complete gene list is available online ([email or web address]; test code MCSTP) 09/01/2022 5:18 PM CDT DTL Clinical Trials Clinical trials associated with Tiers 1 and 2 variants that have a status of recruiting are included in the table above. 09/01/2022 5:18 PM CDT DTL Variants of Uncertain Significance The following VARIANTS OF UNCERTAIN SIGNIFICANCE were identified: APC, c.3949G>C (p.L5858N) (VAF: 40%) RASHAWN, c.745G>A (p.G249S) (VAF: 74%) B2M, c.3_6dup (p.R3fs*55) (VAF: 18%) BCR, c.1239C>G (p.I413M) (VAF: 53%) CASP8, c.1256C>T (p.T419I) (VAF: 5.3%) COP1, c.959del (p.K320fs*10) (VAF: 16%) CUX1, c.3530C>A (p.W5662K) (VAF: 16%) ERBB3, c.1661C>T (p.P554L) (VAF: 25%) ETV1, c.-0_-2058del (VAF: 7.7%) GLI1, c.889G>T (p.E297*) (VAF: 43%) GNAS, c.-178_-171del (VAF: 73%) GRM3, c.77A>G (p.H26R) (VAF: 15%) H3C7, c.157C>T (p.R53C) (VAF: 4.6%) HSD3B1, c.81_82delinsTT (p.Q25_J04jexzcbL*) (VAF: 34%) INSR, c.557G>T (p.C186F) (VAF: 18%) [...] SETBP1, c.2620G>T (p.D874Y) (VAF: 33%) SETBP1, c.3514G>T (p.P8724X) (VAF: 24%) SLIT2, c.1333C>A (p.L445I) (VAF: 8.9%) SLIT2, c.4049G>A (p.U2193J) (VAF: 29%) SMC1A, c.1914_1915delinsAT (p.A639S) (VAF: 32%) SPEN, c.5183C>T (p.T9006N) (VAF: 58%) TFRC, c.1492G>A (p.A498T) (VAF: 43%) 09/01/2022 5:18 PM CDT DTL Specimen Cells 09/01/2022 5:18 PM CDT DTL Tissue ID [id number] 09/01/2022 5:18 PM CDT DTL Method Microscopic examination was performed by a pathologist to identify areas of tumor for enrichment by macrodissection. DNA and RNA were extracted from FFPE or cytology slides, and next generation sequencing using the [employer] chemistry was performed. The following variant types and molecular profiles were evaluated: tumor mutation burden (TMB) status, microsatellite instability (MSI) status, sequence variants involving exonic regions and exon/intron boundaries of 515 genes, gene amplifications in 59 genes, fusions involving any of 55 genes, and transcript variants in 3 genes. AMP/ASCO/CAP classifications and clinical trials and therapeutic information were powered by [employer] - Interpret One (TrivialaI-II). Variant nomenclature is based on build GRCh37 (hg19). For targeted gene lists, details about gene transcripts (GenBank accession numbers), specific targeted regions of each gene, and additional information on this test, see [email or web address] (Test ID MCSTP). 09/01/2022 5:18 PM CDT [...] loss of heterozygosity) and sequencing artifact/misalignment [PMID: 26840924, PMID: 04941324]. Tumor Purity: A tumor percentage of greater [...] developed and its performance characteristics determined by [facility] in a manner consistent with CLIA requirements. [...] respond to immune check point inhibitors [PMID: 67181291]. 1) CCNE1 amplification GENE/VARIANT SUMMARY CCNE1 amplification ([id number]) is an activating alteration. CCNE1 encodes the Cyclin E1 protein, which binds to and activates Cdk2 to promote cell cycle progression. It also has a direct role in initiation of replication and maintenance of genomic stability. Activation or amplification of CCNE1 may result in increased cell proliferation [PMID:04262319]. Amplification of CCNE1, which is located at chromosome 19q12, has been correlated with expression of the Cyclin E1 protein, cell growth, and invasion in several tumor types [PMID:81323769, PMID:25495284, PMID:62421484, PMID:98056925, PMID:89542510]. High-level amplification of CCNE1 has been reported [...] under investigation in early phase clinical trials [PMID:48378482, PMID:76244546]. The efficacy of this therapeutic approach has been reported in preclinical studies of breast and ovarian cancer cells with CCNE1 amplification or Cyclin E1 overexpression, in which treatment with Cdk2 inhibitors resulted in decreased proliferation and increased apoptosis in the cancer cells and reduced metastatic colonization in xenograft models [PMID:40467155, PMID:79694809]. The combination of Cdk2 and either Akt or PI3K inhibitors in cancer cells with CCNE1 amplification has also been reported to be effective in preclinical studies [PMID:62291260, PMID:17229610]. In addition, preliminary results from a Phase 2 trial of the Wee1 inhibitor adavosertib in patients with [place]i [place]-resistant ovarian cancer indicated that CCNE1 amplification may be positively associated with response. Drug resistance: CCNE1 amplification has been implicated in resistance to Cdk4/6 inhibition in preclinical models of breast and ovarian cancer [PMID:69062363, PMID:31828443]. FDA Approved Drugs: None. 2) EGFR amplification GENE/VARIANT SUMMARY EGFR amplification (NM_005228) is an activating alteration. EGFR encodes a receptor tyrosine kinase that activates multiple signaling pathways, such as Jorge/Leonel/MAPK and PI3K, and stimulates the cell proliferation [PMID:81499391, PMID:17189378, PMID:32486983]. Amplification, mutation, and overexpression of EGFR result in constitutive activation of downstream signaling systems, including the JORGE/MAPK and PI3K/AKT pathways and cause excessive proliferation and tumor formation [PMID:51961336, PMID:89926103]. High-level EGFR gene amplification, which is located at chromosome 7p11, has been correlated with elevated Egfr protein expression, as measured by immunohistochemistry, although this correlation is not consistent for low-level gene amplification [PMID:07362987, PMID:73394559, PMID:79084342, PMID:56435254, PMID:34076545, PMID:29412886]. High-level amplification of EGFR has been reported [...] harboring EGFR amplification without concurrent sensitizing mutations [PMID:35603790, PMID:67448252, PMID:74346002, PMID:62219708, PMID:01707876, PMID:81321898, PMID:71552239, PMID:27406469]. Drug resistance: EGFR amplification has been reported as an acquired alteration in 15.5% (16/103) of EGFR wtoq17wgn or S280L-yeldvy NSCLC patients who were treated with Egfr TKI and in 9.7% (3/31) of patients treated with Egfr TKI in combination with bevacizumab [PMID:58776303]. FDA Approved Drugs: None. 3) NF1 c.1722-1G>A (VAF: 15%) GENE/VARIANT SUMMARY NF1 splice site 1722-1G>A ([id number]) is predicted to be an inactivating mutation. NF1 encodes neurofibromin, a GTPase-activating protein (GAP) that is a hansen negative regulator of the Jorge signaling pathway [PMID:9406768]. NF1 acts as a tumor suppressor by suppressing Jorge signaling, and mutations have been identified across the entire NF1 gene [PMID:9893525]. Tumors with mutations in NF1 have therefore been predicted to have activation of Jorge and associated downstream pathways, including the Jorge-MAPK pathway and the mTOR pathway [PMID:2633823, PMID:00556653, PMID:68088295]. The NF1 splice site 1722-1G>A alteration occurs [...] for inhibition of the Jorge pathway (InterPro) [PMID:0050292, PMID:14814995, PMID:40968031, PMID:36033985]. Splicing errors resulting in exon skipping have been reported to occur in patients with neurofibromatosis type 1, with one study reporting splice site mutations in 38% of cases [PMID:98529377, PMID:99746590]. Therefore, although this alteration has not been characterized, it is predicted to be inactivating. NF1 mutations have been reported in 7-12% of lung adenocarcinoma samples analyzed [COSMIC (Apr 2021), [facility] (Apr 2021). THERAPEUTIC IMPLICATIONS Drug sensitivity: Loss of neurofibromin function may result in increased signaling through the Jorge pathway and downstream MAPK and mTOR pathways [PMID:90289802]. Tumors bearing NF1 mutations may therefore be sensitive to mTOR and MAPK inhibitors. The mTOR inhibitors everolimus and temsirolimus have been approved by the FDA, CHRISSY, and PMDA for some indications and are currently in clinical trials for solid tumors [PMID:53077940, PMID:27478103]. Several inhibitors designed to target both the mTORC1/Raptor and mTORC2/Rictor complexes are being tested in early phase clinical trials for advanced solid tumors [PMID:08822396]. Drug resistance: Reduced neurofibromin expression has been reported to be associated with resistance to Egfr inhibitors in both lung adenocarcinoma tumors and in an EGFR-driven mouse model of lung cancer [PMID:01386598]. FDA Approved Drugs: None. 4) RAF1 c.779C>T (p.T260I) (VAF: 44%) GENE/VARIANT SUMMARY RAF1 T260I (NM_[id number]) is predicted to be an activating mutation. RAF1 encodes c-Leonel/Leonel-1, a member of the Leonel family of signaling kinases that also includes A-Leonel and B-Leonel [PMID:98540940]. Activating alterations of RAF1 result in activation of the MEK/ERK signaling pathway, which may promote cell proliferation and survival [PMID:14550657]. RAF1 T260I is a missense alteration that occurs prior to the protein kinase domain of Raf1 (UniProt). RAF1 T260I has been reported as a germline alteration in a hypertrophic cardiomyopathy patient [PMID:87634278]. RAF1 T260I has been reported to result in decreased association with inhibitory 14-3-3 proteins and increased kinase activity as compared with wild-type RAF1, leading to constitutive activation of the Jorge/MAPK pathway [PMID:99852451]. RAF1 mutations have been reported in less than 1% of lung adenocarcinoma samples analyzed [COSMIC (Apr 2021), [facility] (Apr 2021)]. THERAPEUTIC IMPLICATIONS Drug sensitivity: Leonel-1 signals upstream of the MAPK pathway, and activating RAF1 alterations may confer sensitivity to inhibitors of Leonel-1 and/or components of the MAPK pathway, including MEK [PMID:08886122]. Sorafenib, an inhibitor of several tyrosine kinases, including Leonel-1 and both wild-type and mutant Braf, has been approved in advanced renal cell carcinoma, advanced hepatocellular carcinoma, and some types of advanced thyroid carcinoma, and is in clinical trials in multiple tumor types [PMID:25413737]. Braf and Leonel-1 are among the targets of regorafenib, a multi-kinase inhibitor approved to treat metastatic colorectal cancer, advanced gastrointestinal stromal tumors (GIST), and hepatocellular carcinoma [PMID:02296010, PMID:11287593, PMID:95415377, PMID:16017731, PMID:22932020]. Drug resistance: None. FDA Approved Drugs: None. 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 DDR2 encodes Discoidin Domain-containing Receptor 2 (Ddr2), a tyrosine kinase involved in normal bone development [PMID:1991823, PMID:29928597, PMID:59031439]. Ddr2 has been reported to be overexpressed in several types of carcinoma and to be involved in cell proliferation and invasion, likely via activation of MMP2 [PMID:64191392, PMID:39237043]. Ddr2 activation, either through amplification or mutation, may predict sensitivity to dasatinib and other small molecule tyrosine kinase inhibitors [PMID:41983282, PMID:97412638]. DDR2 Y740C is a missense alteration within the protein kinase domain of the Ddr2 protein, at a Src phosphorylation site (UniProt) [PMID:83499169]. DDR2 Y740C has been reported as a pathogenic alteration in patients with Warburg-Cinotti syndrome; this alteration has been reported to result in autophosphorylation of Ddr2 and be sensitive to dasatinib in vitro [PMID:63725256]. DDR2 mutations have been reported in up to 6% of lung adenocarcinoma samples analyzed [COSMIC (Apr 2021), [facility] (Apr 2021)]. THERAPEUTIC IMPLICATIONS Drug sensitivity: Ddr2 activation, either through amplification or mutation, may predict sensitivity to small molecule tyrosine kinase inhibitors [PMID:41417331]. Imatinib, nilotinib, and dasatinib have been FDA approved in some cancer types, are under investigation in numerous other cancer types, and have been reported to have preclinical or clinical activity against Ddr2 [PMID:27588184, PMID:64138073, PMID:50680772, PMID:00737403, PMID:78145168, PMID:88182454]. Drug resistance: DDR2 depletion has been reported to increase sensitivity to anti-PD-1 therapy in preclinical cancer models [PMID:74739138]. FDA Approved Drugs: None. 6) FAT1 c.4447C>T (p.Q1483*) (VAF: 19%) GENE/VARIANT SUMMARY FAT1 Q1483* (NM_005245) is an inactivating mutation. The FAT1 cadherin gene, encoding Fat1, has been implicated as a negative regulator of Wnt signaling by inhibiting beta-catenin nuclear localization and transcriptional activity [PMID:85156634, PMID:20436824]. Fat1 has been characterized in preclinical studies as a tumor suppressor that disrupts Wnt pathway signaling and reduces cell proliferation, growth, migration, and invasion [PMID:37266016, PMID:58606560, PMID:54680963]. However, Fat1 has also exhibited characteristics of an oncogene in some cancer types [PMID:51208571, PMID:80445764]. The FAT1 alteration reported here is expected to truncate the 4588-amino acid Fat1 protein, resulting in the loss of the majority of the cytoplasmic domain (UniProt). Loss of the PTB-like domain, which lies in the cytoplasmic domain, has been reported to result in altered Fat1 localization as well as changes in cell migration [PMID:35235900, PMID:57697779]. Therefore, this alteration is predicted to be [...] in early clinical trials for solid tumors [PMID:79563358, PMID:41889678, PMID:31367758, PMID:61877226, PMID:96603876, PMID:02101595]. Fat1 has exhibited characteristics of an oncogene in some cancer types [PMID:35940527, PMID:47951364]. Therefore, the potential relevance of any targeted therapies must be carefully considered in each situation. Several studies have reported FAT1 mutations in NSCLC to be associated with clinical benefit following treatment with immune checkpoint inhibitors [PMID:00045905, PMID:86124978, PMID:57657943]. Drug resistance: None. FDA Approved Drugs: None. 7) SMAD4 c.670C>T (p.Q224*) (VAF: 27%) GENE/VARIANT SUMMARY SMAD4 Q224* (NM_005359) is an inactivating mutation. SMAD4 (DPC4) encodes the Smad4 protein, a reproduction production manager factor downstream of TGF-beta [PMID:48564000]. A dual role for the TGF-beta/Smad4 signaling network in cancer has been described based on preclinical data, with a tumor suppressor function in tumor initiation, and a tumor-promoting function in later stages of invasion and metastasis [PMID:59573154]. The alteration reported here is expected to truncate the 552-amino acid Smad4 protein within or prior to the MH2 domain (UniProt), which is involved in transcriptional activation and homo-oligomer formation [PMID:02026541]. Several residues in the MH2 domain are highly conserved; SMAD4 D537 specifically is a hotspot for missense alterations and has been reported to be critical to the formation of homo-oligomeric complexes and Smad4 function [PMID:75332378, PMID:7556520, PMID:54224541, PMID:82447403]. In addition, several truncating mutations at SMAD4 E538 have been reported in COSMIC (Aug 2020) and SMAD4 loss of heterozygosity has been reported in a tumor harboring an E538 truncation [PMID:10857856]. This alteration is also likely to elicit nonsense-mediated decay [PMID:42283138, PMID:53912840, PMID:7706406, PMID:97935788]. Therefore, this alteration is predicted to be [...] cells have been identified in preclinical studies [PMID:43651951, PMID:88822056]. Drug resistance: None. FDA Approved Drugs: None. 8) TP53 c.536A>G (p.H179R) (VAF: 46%) GENE/VARIANT SUMMARY TP53 H179R (NM_000546) is an inactivating mutation. TP53 is a tumor suppressor gene that encodes p53, a reproduction production manager factor involved in DNA damage cell cycle checkpoint, cell cycle arrest and apoptosis [PMID:51279027, PMID:2133556]. Inactivation of TP53, mainly through mutations, deletions and allelic imbalance, is commonly implicated in tumorigenesis [PMID:39934290]. Oncomorphic or povj-sp-bfnanosn properties of TP53 that lead to increased reproduction production manager of several genes associated with cell survival and chemoresistance also contribute to tumorigenesis [PMID:6937162, PMID:21966171, PMID:76013051, PMID:21412822, PMID:05308151, PMID:88394473, PMID:31900182, PMID:92924793]. TP53 H179R is a missense alteration located within the DNA-binding domain (DBD) of the p53 protein [PMID:60986053]. DBD mutations are thought to result in loss of function via the loss of transactivation of k35-hmwbuoikd genes [PMID:76640429]. H179 has been shown to be required for the coordination of a zinc atom critical for the proper folding of the p53 protein, and H179R has been shown to result in substantially reduced transactivation activity, as compared with wild-type TP53, in yeast assays (The TP53 Database) [PMID:15707225, PMID:92117901, PMID:26490877, PMID:45945971]. TP53 mutations have been reported in 39-53% of lung adenocarcinoma samples analyzed [COSMIC (Apr 2021), [facility] (Apr 2021)]. THERAPEUTIC IMPLICATIONS Drug sensitivity: At present, there are no approved therapies targeting TP53 alterations, despite their high prevalence in cancer. Therapeutic approaches under investigation include gene therapy for TP53 and (dendritic cell-based) TP53 vaccines [PMID:06653503, PMID:41431493, PMID:65902592]. Inhibition of components of the DNA damage checkpoint, including Wee1, has been reported to enhance the activity of DNA-damaging agents in preclinical cancer models with deficiency of p53 function [PMID:38949648, PMID:41625894, PMID:71832772]. Clinical trials of the Wee1 inhibitor adavosertib (MK-1775) are currently underway for patients with solid tumors and hematologic malignancies. Studies have reported Ruthie kinase A to be activated in cells harboring TP53 mutation, and Ruthie kinase A and B inhibitors have been reported to activate wild-type p53 in cellular assays; thus, tumors retaining a wild-type TP53 allele may benefit from Ruthie kinase inhibitors [PMID:23882504, PMID:16942073, PMID:16292568, PMID:23980681, PMID:81753851, PMID:56472932]. Drug resistance: Mutations in TP53 may increase resistance to ionizing radiation therapy [PMID:33690047, PMID:95332923]. FDA Approved Drugs: None. 9) B2M c.3_6dup (p.R3fs*55) (VAF: 18%) GENE/VARIANT SUMMARY The effect of B2M R3fs*55 is predicted to be an inactivating mutation. B2M encodes beta2-microglobulin (B2-microglobulin), an essential component of the MHC class 1 complex (MHC-1) [PMID:41781535, PMID:06431700]. While serum B2-microglobulin levels are elevated in several pathogenic conditions, inactivation of B2M by mutation or deletion has been reported in several types of cancer and is associated with immune evasion [PMID:58785824, PMID:90391499, PMID:44337153, PMID:50967603, PMID:15329631]. B2M R3fs*55 is a frameshift alteration that is expected to result in premature truncation of the beta2-microglobulin protein. In addition, this alteration is likely to elicit nonsense-mediated decay [PMID:39677077, PMID:08558271, PMID:9412659, PMID:30214093]. Therefore, this alteration is predicted to lead [...] stimulation of cytotoxic T-lymphocyte (CTL) mediated cell [PMID:56431170, PMID:81935486, PMID:32279279]. B2M homozygous loss has been identified in an NSCLC patient with acquired resistance to anti-PD-L1 and anti-CTLA4 treatment and B2M knockout conferred resistance to PD-1 inhibition in a lung cancer mouse model [PMID:76942403]. FDA Approved Drugs: None. 09/01/2022 5:18 PM CDT DTL Tissue (Abdomen) 08/08/2022 9:35 AM DATA MINING ANALYST 08/16/2022 3:32 PM DATA MINING ANALYST Narrative Resulting Agency Comment [id number] Miles Ballard Jr., M.D. 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 [address] [place] [phone] PCP - General Family Medicine 06/09/22 documented as of this encounter
--- OUTSIDE RECORDS SUMMARY | 2023-06-26 09:14 | XMS_ITS | Encounter Summary ---
Author Name Unknown Organization [facility] Address [address] [place] [address] Care Team Providers Care Yoga Instructor Name Role Phone Suhail Burrows M.D. Primary Care P dena Encounter Details Date Type Department Care Team (Latest Contact Info) Description 08/05/2022 2:33 PM HAND QUILTER - 08/05/2022 11:59 PM HAND QUILTER Hospital Encounter Department of Laboratory Medicine and Pathology, [facility], in [place], [place] [address] [place] [address] Miles Ballard Jr., M.D. [address] [place] [address] Lymphadenopathy Mediastinum; Mass Lung Discharge Disposition: Home [...] (Latest Contact Info) Description 06/29/2023 11:00 AM HAND QUILTER Appointment Department of Radiation Oncology in [place], [place] [address] [place] [address] Clemente Feng M.D. [address] [place] [address] 08/08/2023 10:30 AM HAND QUILTER Comprehensive Visit Department of Endocrinology in [place], [place] [address] [place] [address] Tomer Hinson M.D. [address] [place] [phone] Discharge Disposition: Home or Self Care documented as of this encounter Procedures Procedure Name Priority Date/Time Associated Diagnosis Comments CBC WITHOUT DIFFERENTIAL, B Routine 08/05/2022 2:41 PM HAND QUILTER Lymphadenopathy Mediastinum Mass Lung documented in this encounter Results * (ABNORMAL) CBC without Differential (08/05/2022 2:41 PM HAND QUILTER) Hemoglobin 15.6(H) 11.6 - 15.0 g/dL 08/05/2022 3:22 PM HAND QUILTER DTL Hematocrit 46.7(H) 35.5 - 44.9 % 08/05/2022 3:22 PM HAND QUILTER DTL Erythrocytes 4.95 3.92 - 5.13 x10(12)/L 08/05/2022 3:22 PM HAND QUILTER DTL MCV 94.3 78.2 - 97.9 fL 08/05/2022 3:22 PM HAND QUILTER DTL RBC Distrib Width 12.4 12.2 - 16.1 % 08/05/2022 3:22 PM HAND QUILTER DTL Platelet Count 450(H) 157 - 371 x10(9)/L 08/05/2022 3:22 PM HAND QUILTER DTL Leukocytes 10.9(H) 3.4 - 9.6 x10(9)/L 08/05/2022 3:22 PM HAND QUILTER DTL Blood (Blood, Venous) 08/05/2022 2:41 PM HAND QUILTER 08/05/2022 3:02 PM HAND QUILTER Miles Ballard Jr., M.D. LAB BLOOD ADD -ON Performing Organization Address City/State/[facility] Co de Phone Number [facility] [address] [place] [address], [facility] [address] [place] [address] documented in this encounter Visit Diagnoses Diagnosis Lymphadenopathy Mediastinum Mass Lung documented in this encounter Care Teams Yoga Instructor Relationship Specialty Start Date End Date Suhail Burrows M.B.B.S., M.D. [address] [place] [phone] PCP - General Family Medicine 06/09/22 documented as of this encounter
--- NOTE | 2023-06-26 09:15 | CRLHL7_ITS ---
For Patients: As a result of the Century Cures Act, medical imaging exams and procedure reports are released immediately into your electronic medical record. You may view this report before your referring provider. If you have questions, please contact your health care provider. Indication: Lung cancer. Technique: Multiplanar, multisequence MRI of the brain was performed without and with intravenous contrast. Contrast: 10 cc Dotarem. Comparison: MR brain 11/22/2022. Findings: Interval significant improvement in previously noted numerous metastatic foci throughout the brain parenchyma. Few lesions are identified as follows and categorized on series 14: 1. Right superior frontal gyrus, image 28. 2. Left centrum semiovale, image 63. 3. Left middle cerebral peduncle/cerebellum, image 123. 4. Left cerebellum, image 130. The corpus callosum, pituitary gland and clivus appear intact. Craniocervical junction is preserved. There is no restricted diffusion. No intracranial hemorrhage. The ventricles are proportionate to the cerebral sulci. The 4th ventricle appears midline. The basal cisterns appear patent. No abnormal extra-axial fluid collection identified. Mild parenchymal volume loss. Mild to moderate T2 FLAIR hyperintense foci within the subcortical and periventricular white matter, favored to represent chronic ischemic microvascular disease. Impression: 1. Interval significant improvement in previously noted numerous metastatic foci throughout the brain parenchyma, with notable resolution of a majority of the lesions. There are a few residual lesions categorized above. 2. Mild to moderate chronic ischemic microvascular disease. Dictated by Daniel Mcconnell MD @ 06/27/2023 10:40:06 AM (Electronically Signed)
--- OUTSIDE RECORDS SUMMARY | 2023-06-26 09:15 | XMS_ITS | Encounter Summary ---
Author Name Unknown Organization [facility] Address [address] [place] [address] Care Team Providers Care Finance Clerk Name Role Phone Suhail Burrows M.D. Primary Care Allan fernandes Encounter Details Date Type Department Care Team (Late st Contact Info) Description 07/04/2022 Orders Only Department of Family Medicine, [facility], in [place], [place] [address] [place] [phone] Sita Kraft, P.AHector-CHector [address] [phone] Hypertension Essential Primary (Primary Dx) Social History Tobacco Use Types [...] (Latest Contact Info) Description 06/29/2023 11:00 AM CARDIOLOGY SPECIALIST Appointment Department of Radiation Oncology in [place], [place] [address] [place] [phone] Clemente Feng M.D. [address] [place] [address] 08/08/2023 10:30 AM CARDIOLOGY SPECIALIST Comprehensive Visit Department of Endocrinology in [place], [place] [address] [facility] [place] [phone] Tomer Hinson M.D. [address] [facility] [place] [phone] Discharge Disposition: Home or Self Care documented as of this encounter Results * Basic Metabolic Panel (07/04/2022 3:28 PM CARDIOLOGY SPECIALIST) Potassium, P 4.6 3.6 - 5.2 mmol/L 07/04/2022 6:37 PM CARDIOLOGY SPECIALIST OWAT Sodium, P 139 135 - 145 mmol/L 07/04/2022 6:37 PM CARDIOLOGY SPECIALIST OWAT Chloride, P 100 98 - 107 mmol/L 07/04/2022 6:37 PM CARDIOLOGY SPECIALIST OWAT Bicarbonate, P 28 22 - 29 mmol/L 07/04/2022 6:37 PM CARDIOLOGY SPECIALIST OWAT Anion Gap, P 11 7 - 15 07/04/2022 6:37 PM CARDIOLOGY SPECIALIST OWAT BUN (Blood Urea Nitrogen), P 17 6 - 21 mg/dL 07/04/2022 6:37 PM CARDIOLOGY SPECIALIST OWAT Creatinine 0.81 0.59 - 1.04 mg/dL 07/04/2022 6:37 PM CARDIOLOGY SPECIALIST OWAT Estimated GFR (eGFR) 83 >=60 mL/min/BSA 07/04/2022 6:37 PM CARDIOLOGY SPECIALIST OWAT Comment: Estimated GFR calculated using the 2020 CKD_EPI creatinine equation. Calcium, Total, P 9.9 8.8 - 10.2 mg/dL 07/04/2022 6:37 PM CARDIOLOGY SPECIALIST OWAT Glucose, P 134 70 - 140 mg/dL 07/04/2022 6:37 PM CARDIOLOGY SPECIALIST OWAT Blood (Blood, Venous) 07/04/2022 3:28 PM CARDIOLOGY SPECIALIST 07/04/2022 6:00 PM CARDIOLOGY SPECIALIST Sita Kraft P.A.-C. LAB BLOOD ADD-ON [facility] [address] [place] [address], [facility] OWAT [facility] in [place] [address] [place] [address] documented in this encounter Visit Diagnoses Diagnosis Hypertension Essential Primary- Primary documented in this encounter Care Teams Finance Clerk Relationship Specialty Start Date End Date Suhail Burrows M.B.B.S., M.D. [address] [place] [phone] PCP - General Family Medicine 06/09/22 documented as of this encounter
--- OUTSIDE RECORDS SUMMARY | 2023-06-26 09:15 | XMS_ITS | Encounter Summary ---
Author Name Unknown Organization [facility] Address [address] [place] [address] Care Team Providers Care Fence Laborer Name Role Phone Suhail Burrows M.D. Primary Care Allan fernandes Encounter Details Date Type Department Care Team (Latest Contact Info) Description 07/04/2022 3:24 PM HVAC PROJECT ENGINEER - 07/04/2022 11:59 PM HVAC PROJECT ENGINEER Hospital Encounter Department of Laboratory Medicine in [place], [place] [address] [facility] [place] [address] Sita Kraft P.AJoelle [address] [place] [phone] Hypertension Essential Primary Discharge Disposition: Home or Self Care Social [...] (Latest Contact Info) Description 06/29/2023 11:00 AM HVAC PROJECT ENGINEER Appointment Department of Radiation Oncology in [place], [place] [address] [facility] [place] [address] Clemente Feng M.D. [address] [place] [address] 08/08/2023 10:30 AM HVAC PROJECT ENGINEER Comprehensive Visit Department of Endocrinology in [place], [place] [address] [place] [phone] Tomer Hinson M.D. [address] [place] [phone] Discharge Disposition: Home or Self Care documented as of this encounter Procedures Procedure Name Priority Date/Time Associated Diagnosis Comments BASIC METABOLIC PANEL, S/P Routine 07/04/2022 3:28 PM HVAC PROJECT ENGINEER Hypertension Essential Primary documented in this encounter Results * Basic Metabolic Panel (07/04/2022 3:28 PM HVAC PROJECT ENGINEER) Potassium, P 4.6 3.6 - 5.2 mmol/L 07/04/2022 6:37 PM HVAC PROJECT ENGINEER OWAT Sodium, P 139 135 - 145 mmol/L 07/04/2022 6:37 PM HVAC PROJECT ENGINEER OWAT Chloride, P 100 98 - 107 mmol/L 07/04/2022 6:37 PM HVAC PROJECT ENGINEER OWAT Bicarbonate, P 28 22 - 29 mmol/L 07/04/2022 6:37 PM HVAC PROJECT ENGINEER OWAT Anion Gap, P 11 7 - 15 07/04/2022 6:37 PM HVAC PROJECT ENGINEER OWAT BUN (Blood Urea Nitrogen), P 17 6 - 21 mg/dL 07/04/2022 6:37 PM HVAC PROJECT ENGINEER OWAT Creatinine 0.81 0.59 - 1.04 mg/dL 07/04/2022 6:37 PM HVAC PROJECT ENGINEER OWAT Estimated GFR (eGFR) 83 >=60 mL/min/BSA 07/04/2022 6:37 PM HVAC PROJECT ENGINEER OWAT Comment: Estimated GFR calculated using the 2020 CKD_EPI creatinine equation. Calcium, Total, P 9.9 8.8 - 10.2 mg/dL 07/04/2022 6:37 PM HVAC PROJECT ENGINEER OWAT Glucose, P 134 70 - 140 mg/dL 07/04/2022 6:37 PM HVAC PROJECT ENGINEER OWAT Blood (Blood, Venous) 07/04/2022 3:28 PM HVAC PROJECT ENGINEER 07/04/2022 6:00 PM HVAC PROJECT ENGINEER Sita Kraft P.A.-C. LAB BLOOD ADD-ON [facility] [address] [place] [address], [facility] OWAT [facility] in [place] [address] [place] [address] documented in this encounter Visit Diagnoses Diagnosis Hypertension Essential Primary documented in this encounter Care Teams Fence Laborer Relationship Specialty Start Date End Date Suhail Burrows M.B.B.SHector, MChika. [address] [place] [phone] PCP - General Family Medicine 06/09/22 documented as of this encounter
--- OUTSIDE RECORDS SUMMARY | 2023-06-26 09:15 | XMS_ITS | Encounter Summary ---
Author Name Unknown Organization [facility] Address [address] [place] [address] Care Team Providers Care Railroad Carman Name Role Phone Suhail Burrows M.D. Primary Care Allan fernandes Reason for Referral * Outpatient (Routine) - Closed Specialty Diagnoses / Procedures Referred By Yelena griffin Referred To Contact Pulmonary Medicine Diagnoses [facility] Suhail Burrows M.B.B.S., M.D. [address] [place] [address] [facility] Referral ID Status Reason Start Date Expiration Date Visits Re quested Visits Authorized [id number] Closed 07/05/2022 07/05/2023 1 1 ING SUPERVISOR Encounter Details Date Type Department Care Team (Late st Contact Info) Description 07/05/2022 Orders Only Department of Family Medicine, [facility], in [place], [place] [address] [place] [address] Suhail Burrows M.B.B.S., M.D. [address] [place] [address] [facility] (Primary Dx) Social History Tobacco Use Types [...] (Latest Contact Info) Description 06/29/2023 11:00 AM WORKING SUPERVISOR Appointment Department of Radiation Oncology in [place], [place] [address] [place] [phone] Clemente Feng M.D. [address] [place] [address] 08/08/2023 10:30 AM WORKING SUPERVISOR Comprehensive Visit Department of Endocrinology in [place], [place] [address] [place] [phone] Tomer Hinson M.D. [address] [place] [phone] Discharge Disposition: Home or Self Care Scheduled Referrals Name Type Priority Associated Diagnoses Orde r Schedule Pulmonary Medicine - Lung cancer consult (clinic) Outpatient Referral Routine [facility] Expected: 07/05/2022 (Approximate), Expires: 10/04/2023 documented as of this encounter Visit Diagnoses Diagnosis N[facility] Pulmonary- Primary documented in this encounter Care Teams Railroad Carman Relationship Specialty Start Date End Date Suhail Burrows M.B.B.S., M.Annette. [address] [place] [phone] PCP - General Family Medicine 06/09/22 documented as of this encounter
--- OUTSIDE RECORDS SUMMARY | 2023-06-26 09:15 | XMS_ITS | Encounter Summary ---
Author Name Unknown Organization [facility] Address [address] [place] [address] Care Team Providers Care Repairer Hairspring Name Role Phone Suhail Burrows M.D. Primary Care Allan fernandes Reason for Referral * Outpatient (Routine) - Closed Specialty Diagnoses / Procedures Referred By Yelena griffin Referred To Contact Diagnoses Screening Mammogram Breast Cancer Procedures BI Breast Screening Bilateral with Tomosynthesis Suhail Burrows M.B.B.S., M.D. [address] [facility] [place] [address] [facility] Referral ID Status Reason Start Date Expiration Date Visits Re quested Visits Authorized [id number] Closed 07/19/2022 07/19/2023 1 1 HOUSE FOREMAN Encounter Details Date Type Department Care Team (Late st Contact Info) Description 07/19/2022 Orders Only [facility] PCP [facility] Suhail Burrows M.B.B.S., M.D. [address] [place] [address] Screening Lipid; Screening Mammogram Breast Cancer Social History Tobacco Use Types Packs/Day Years [...] (Latest Contact Info) Description 06/29/2023 11:00 AM WAREHOUSE FOREMAN Appointment Department of Radiation Oncology in [place], [place] [address] [place] [address] Clemente Feng M.D. [address] [place] [address] 08/08/2023 10:30 AM WAREHOUSE FOREMAN Comprehensive Visit Department of Endocrinology in [place], [place] [address] [place] [phone] Tomer Hinson M.D. [address] [place] [phone] Discharge Disposition: Home or Self Care documented as of this encounter Results * BI Breast Screening Bilateral with Tomosynthesis (09/26/2022 3:10 PM CDT) Anatomical Region Laterality Modality Breast, Breast Imaging RST L OS, Breast Imaging ARZ LOS, Breast Imaging [facility] Bilateral Mammography 09/27/2022 1:15 PM CDT Impressions [...] Negative. Suhail Davies M.D. IMG BI PROCEDURES * (ABNORMAL) Lipid Panel (09/21/2022 10:24 AM [...] Suhail Davies M.D. LAB BLO OD ADD-ON [facility] [address] [place] [address], [facility] OWAT [facility] in [place] [address] [place] [address] documented in this encounter Visit Diagnoses Diagnosis Screening Lipid Screening Mammogram Breast Cancer Screening Mammogram Breast Cancer documented in this encounter Care Teams Repairer Hairspring Relationship Specialty Start Date End Date Suhail Burrows M.B.B.S., M.D. [address] [place] [phone] PCP - General Family Medicine 06/09/22 documented as of this encounter
--- OUTSIDE RECORDS SUMMARY | 2023-06-26 09:15 | XMS_ITS | Encounter Summary ---
Author Name Unknown Organization [facility] Address [address] [place] [address] Care Team Providers Care Observer [employer]ity [employer]ing Name Role Phone Suhail Burrows M.D. Primary Care P dena Reason for Referral * MRI/CAT/PET Scan (Routine) - Closed Specialty Diagnoses / Procedures Referred By Yelena griffin Referred To Contact Radiology Diagnoses Nodule Pulmonary Procedures CT Chest with IV Contrast CT Chest without IV Contrast Suhail Burrows M.B.B.S., M.D. [address] [place] [address] [facility] Region Referral ID Status Reason Start Date Expiration Date Visits Re quested Visits Authorized [id number] Closed 06/20/2022 06/20/2023 1 1 IESEL TECHNOLOGY MANAGER Reason for Visit * MRI/CAT/PET Scan (Routine) - Closed Specialty Diagnoses / Procedures Referred By Yelena griffin Referred To Contact Radiology Diagnoses Nodule Pulmonary Procedures CT Chest with IV Contrast CT Chest without IV Contrast Suhail Burrows M.B.B.S., M.D. [address] [place] [address] [facility] Region Referral ID Status Reason Start Date Expiration Date Visits Re quested Visits Authorized [id number] Closed 06/20/2022 06/20/2023 1 1 Encounter Details Date Type Department Care Team (Latest Contact Info) Description 07/05/2022 7:33 AM BIODIESEL TECHNOLOGY MANAGER - 07/05/2022 11:59 PM BIODIESEL TECHNOLOGY MANAGER Hospital Encounter Department of Radiology in [place], [place] [address] [place] [phone] Suhail Burrows M.B.B.S., M.D. [address] [place] [address] [place] [phone] Nodule Pulmonary Discharge Disposition: Home or Self [...] as of this encounter Consult Notes * Lang Tejeda M.D. - 07/05/2022 7:33 AM CST SUBJECTIVE [id number] consultation. REFERRAL SOURCE Keke Cuenca M.D. REASON FOR CONSULT Lung mass. HISTORY OF PRESENT ILLNESS Lung mass I reviewed the record at the request of Dr. Burrows. He is referring Ms. Sandrine Deleon who is [id number] smoker undergoing evaluation, and a CT scan of the chest showed a process in the left lower lobe. ASSESSMENT / PLAN #1 Possible bronchogenic carcinoma We will make arrangements for Ms. Deleon to be seen in the Lung Nodule Clinic. A preschedule of MRI of the head, PET scan, and complete pulmonary function tests will be arranged. MARGIN CODE: No charge. Lang Tejeda M.D. CT CT Job ID: [id number] IESEL TECHNOLOGY MANAGER documented in this encounter Miscellaneous Notes * Result Encounter Note - Suhail Burrows M.B.B.S., M.D. - 07/05/2022 12:01 PM CST I spoke with patient about her CT result. There is a highly suspicious mass on her left lung. I informed her I will put in a referral to Pulmonology in [place] for further evaluation. IESEL TECHNOLOGY MANAGER documented in this encounter Plan of Treatment Upcoming Encounters Date Type Department Care Team (Latest Contact Info) Description 06/29/2023 11:00 AM BIODIESEL TECHNOLOGY MANAGER Appointment Department of Radiation Oncology in [place], [place] [address] [place] [phone] Clemente Feng M.D. [address] [place] [address] 08/08/2023 10:30 AM BIODIESEL TECHNOLOGY MANAGER Comprehensive Visit Department of Endocrinology in [place], [place] [address] [place] [phone] Tomer Hinson M.D. [address] [place] [phone] Discharge Disposition: Home or Self Care documented as of this encounter Procedures Procedure Name Priority Date/Time Associated Diagnosis Comments CT CHEST WITH IV CONTRAST RAD - Routine (most inpatients and all outpatients) 07/05/2022 8:01 AM BIODIESEL TECHNOLOGY MANAGER Nodule Pulmonary documented in this encounter Results * CT Chest with IV Contrast (07/05/2022 8:01 AM BIODIESEL TECHNOLOGY MANAGER) Anatomical Region Laterality Modality Chest, Thoracic RST LOS, Tho racic ARZ LOS, Thoracic ARZ LOS, Thoracic FLA LOS N/A Computed Tomography 07/05/2022 8:43 AM BIODIESEL TECHNOLOGY MANAGER Impressions 07/05/2022 8:51 AM BIODIESEL TECHNOLOGY MANAGER 1. Spiculated left lower lobe mass, highly suspicious for primary pulmonary neoplasm. Consider PET/CT and/or soft tissue sampling. * ??Surrounding satellite nodularity and nodular thickening along the major fissure is suspicious for local regional disease spread/lymphangitic extension * ??Left hilar lymphadenopathy, presumably metastatic. 2. A few other small nodular areas are present, a couple that seen to represent areas of scarring given flattened appearance on reformatted images and another indeterminate in the perifissural right upper lobe (possibly an adenocarcinoma spectrum lesion), as detailed. 3. Moderate to advanced emphysema. 4. Bilateral indeterminate adrenal nodules, attention at follow-up. Narrative 07/05/2022 8:51 AM BIODIESEL TECHNOLOGY MANAGER EXAM: CT CHEST WITH IV CONTRAST COMPARISON: Outside hospital chest radiograph report 06/09/2022 FINDINGS: Lines, Tubes and Devices:None. Mediastinum: Mild left hilar lymphadenopathy. Normal included thyroid. Decompressed esophagus. Heart and Great Vessels: Normal heart size. No pericardial effusion. ??Multivessel coronary calcifications. Upper normal caliber ascending thoracic aorta measuring 3.8 cm in caliber as measured perpendicular to the axis of blood flow on reformatted images. Normal caliber descending thoracic aorta with heavy atherosclerotic calcifications along the arch and descending aorta. Normal caliber main pulmonary artery. Lungs, Airways and Pleura: Left lower lobe spiculated mass with pleural tethering measuring 4.0 x 1.8 cm in axial plane and 2.3 cm craniocaudal. Surrounding satellite nodularity and some architectural distortion. There is also some nodular thickening along the left major fissure leading to the hilum. Focal nodular opacity at the left lung apex, posteriorly (/) has a flattened appearance on sagittal image 46, favored to represent an area of scar. Similar suspected focal scarring at the right lung apex (series 3 image 112). 9 mm average diameter nodular opacity in the Perifissural right upper lobe (3/190). Background of moderate to advanced centrilobular and paraseptal emphysema. No pleural effusion. Clear central airways. Chest Wall: No acute soft tissue or osseous abnormality. Midthoracic spondylosis. No suspicious osseous lesion. Upper abdomen: Indeterminate 12 mm left adrenal nodule along the lateral limb. Possible thickening of the left adrenal body. 11 mm right adrenal nodule. 3D maximum intensity projection (MIP) images were created on a dependent workstation as ordered by the treating provider and reviewed by the radiologist to increase sensitivity for detection of pulmonary nodules. Procedure Note Aleks Ramirez M.D. - 07/05/2022 EXAM: CT CHEST WITH IV CONTRAST COMPARISON: Outside hospital chest radiograph report 06/09/2022 FINDINGS: Lines, Tubes and Devices:None. Mediastinum: Mild left hilar lymphadenopathy. Normal included thyroid.Decompressed esophagus. Heart and Great Vessels: Normal heart size. No pericardial effusion.Multivessel coronary calcifications. Upper normal caliber ascending thoracic aorta measuring3.8 cm in caliber as measured perpendicular to the axis of blood flow on reformatted images.Normal caliber descending thoracic aorta with heavy atherosclerotic calcifications along the archand descending aorta. Normal caliber main pulmonary artery. Lungs, Airways and Pleura: Left lower lobe spiculated mass with pleuraltethering measuring 4.0 x 1.8 cm in axial plane and 2.3 cm craniocaudal. Surrounding satellitenodularity and some architectural distortion. There is also some nodular thickening along theleft major fissure leading to the hilum. Focal nodular opacity at the left lung apex, posteriorly(3/89) has a flattened appearance on sagittal image 46, favored to represent an area of scar.Similar suspected focal scarring at the right lung apex (series 3 image 112). 9 mm averagediameter nodular opacity in the Perifissural right upper lobe (3/190). Background of moderate to advancedcentrilobular and paraseptal emphysema. No pleural effusion. Clear central airways. Chest Wall: No acute soft tissue or osseous abnormality. Midthoracicspondylosis. No suspicious osseous lesion. Upper abdomen: Indeterminate 12 mm left adrenal nodule along the laterallimb. Possible thickening of the left adrenal body. 11 mm right adrenal nodule. 3D maximum intensity projection (MIP) images were created on a dependentworkstation as ordered by the treating provider and reviewed by the radiologist to increasesensitivity for detection of pulmonary nodules. IMPRESSION: 1. Spiculated left lower lobe mass, highly suspicious for primarypulmonary neoplasm. Consider PET/CT and/or soft tissue sampling. * Surrounding satellite nodularity and nodular thickening along the majorfissure is suspicious for local regional disease spread/lymphangitic extension * Left hilar lymphadenopathy, presumably metastatic. 2. A few other small nodular areas are present, a couple that seen torepresent areas of scarring given flattened appearance on reformatted images and another indeterminatein the perifissural right upper lobe (possibly an adenocarcinoma spectrum lesion), as detailed. 3. Moderate to advanced emphysema. 4. Bilateral indeterminate adrenal nodules, attention at follow-up. Suhail Davies M.D. IMG CT PROCEDURES documented in this encounter Visit Diagnoses Diagnosis Nodule Pulmonary documented in this encounter Administered Medications Inactive Administered Medications - up to 3 most recent administrations Medication Order MAR Action Action Date Dose Rate Site iohexoL 300 mg iodine/mL solution 1-200 mL (OMNIPAQUE) 1-200 mL, intravenous, Once in imaging, contrast, Starting on Mon07/05/22 at 0803, For 1 dose, If administered oral then dilute in 900 mL water Given 07/05/2022 7:52 AM BIODIESEL TECHNOLOGY MANAGER 80 mL sodium chloride 0.9 % flush 100 mL 100 mL, intravenous, Once in imaging, line care, Starting on Mon07/05/22 at 0803, For 1 dose Given 07/05/2022 7:52 AM BIODIESEL TECHNOLOGY MANAGER 80 mL sodium chloride 0.9 % injection 10 mL 10 mL, intravenous, Once in imaging, line care, Starting on Mon07/05/22 at 0803, For 1 dose Given 07/05/2022 7:52 AM BIODIESEL TECHNOLOGY MANAGER 10 mL documented in this encounter Care Teams Observer Gravity Prospecting Relationship Specialty Start Date End Date Suhail Burrows M.B.B.S., M.D. [address] [place] [phone] PCP - General Family Medicine 06/09/22 documented as of this encounter
--- OUTSIDE RECORDS SUMMARY | 2023-06-26 09:15 | XMS_ITS | Encounter Summary ---
Author Name Unknown Organization [facility] Address [address] [place] [address] Care Team Providers Care Geographic Information Scientist Name Role Phone Suhail Burrows M.D. Primary Care P dena Reason for Referral * MRI/CAT/PET Scan (Routine) - Closed Specialty Diagnoses / Procedures Referred By Yelena griffin Referred To Contact Radiology Diagnoses Nodule Pulmonary Procedures MR Brain without and with IV Contrast MR Brain without IV Contrast MS MRI BRAIN WO CNTRST HC MRI BRAIN WO CNTRST Suhail Burrows M.B.B.S., M.D. [address] [place] [address] [facility] Referral ID Status Reason Start Date Expiration Date Visits Re quested Visits Authorized [id number] Closed 07/20/2022 07/20/2023 1 1 D DYNAMICIST * MRI/CAT/PET Scan (Routine) - Closed Specialty Diagnoses / Procedures Referred By Contyeimy t Referred To Contact Diagnoses Nodule Pulmonary Procedures PET CT Skull to Thigh FDG Suhail Burrows M.B.B.S., M.D. [address] [place] [address] [facility] Referral ID Status Reason Start Date Expiration Date Visits Re quested Visits Authorized [id number] Closed 07/20/2022 07/20/2023 1 1 D DYNAMICIST Reason for Visit * Reason Onset Date Comments Order Request 07/04/2022 Encounter Details Date Type Department Care Team (Late st Contact Info) Description 07/04/2022 Clinical Communication Department of Family Medicine, [facility], in [place], [place] [address] [place] [phone] Suhail Burrows M.B.B.S., M.D. [address] [place] [phone] Order Request Social History Tobacco Use Types Packs/Day Years [...] encounter Miscellaneous Notes * Telephone Encounter - Chely Garcia - 07/20/2022 11:48 AM CST Images from the original note were not included. Thank you for the signed testing orders Dr. Burrows. Sandrine is aware and pleased. Thanks. 07/20/22sla. D DYNAMICIST * Telephone Encounter - Chely Garcia - 07/18/2022 2:[address] Burrows team, Before Pulmonary medicine consult. They would like MRI of the head, PET scan, and complete pulmonary function tests, please. Robbie vIan 07/06/2022 10:00 AM FLUID DYNAMICIST 07/06/22 per triage: We will make arrangements for Ms. Deleon to be seen in the Lung Nodule Clinic. A preschedule of MRI of the head, PET scan, and complete pulmonary function tests will be arranged. Diagnosis: Nodule Pulmonary [R91.1] Clinical question: smoking history with highly suspicious left lower lung mass seen on CTA. Follow up with PET/CT and Bronchoscopy recommended Thank you, Chely Referrals 07/18/22 D DYNAMICIST * Telephone Encounter - Lara Damian - 07/04/2022 7:17 AM CST Patient is scheduled for a CT scan tomorrow morning at 8:00. The CT was ordered without contrast, but the RAD changed to order to be with contrast due to the mass. We never received a CT questionnaire, and will need that. If any of the answers are marked yes on the form we will need the patient to have a creatinine with GFR done today. Here is the link to the CT questionnaire- CT questionnaire and you can fax the form to [phone]. Thank you! D DYNAMICIST documented in this encounter Plan of Treatment Upcoming Encounters Date Type Department Care Team (Latest Contact Info) Description 06/29/2023 11:00 AM FLUID DYNAMICIST Appointment Department of Radiation Oncology in [place], [place] [address] [place] [phone] Clemente Feng M.D. [address] [place] [address] 08/08/2023 10:30 AM FLUID DYNAMICIST Comprehensive Visit Department of Endocrinology in [place], [place] [address] [place] [phone] Tomer Hinson M.D. [address] [place] [phone] Discharge Disposition: Home or Self Care documented as of this encounter Results * Pulmonary Function Tests (08/05/2022 12:31 PM FLUID DYNAMICIST) PostFVC 3.19 L 08/05/2022 2:21 PM FLUID DYNAMICIST [facility] PostFEV1 1.94 L 08/05/2022 2:21 PM FLUID DYNAMICIST [facility] FEV1/FVC POST 60.79 % 08/05/2022 2:21 PM FLUID DYNAMICIST [facility] FEF 25-75 % POST 0.93 L/s 08/05/2022 2:21 PM FLUID DYNAMICIST [facility] PEF POST 5.38 L/s 08/05/2022 2:21 PM FLUID DYNAMICIST [facility] PIF POST 3.89 L/s 08/05/2022 2:21 PM FLUID DYNAMICIST [facility] FEF 50 % FIF 50 POST 40.33 % 08/05/2022 2:21 PM FLUID DYNAMICIST [facility] FET POST 7.98 sec 08/05/2022 2:21 PM FLUID DYNAMICIST [facility] FVC 2.94 L 08/05/2022 2:21 PM FLUID DYNAMICIST [facility] FEV1 2.01 L 08/05/2022 2:21 PM FLUID DYNAMICIST [facility] FEV1/FVC 68.30 % 08/05/2022 2:21 PM FLUID DYNAMICIST [facility] OPO53-20% 1.24 L/s 08/05/2022 2:21 PM FLUID DYNAMICIST [facility] PEF PRE 5.46 L/s 08/05/2022 2:21 PM FLUID DYNAMICIST [facility] PIF PRE 2.92 L/s 08/05/2022 2:21 PM FLUID DYNAMICIST [facility] SUITE FEF 50 % FIF 50 PRE 68.19 % 08/05/2022 2:21 PM FLUID DYNAMICIST [facility] FET PRE 6.19 sec 08/05/2022 2:21 PM FLUID DYNAMICIST [facility] DLCO 9.60 ml/(min*mm Hg) 08/05/2022 2:21 PM FLUID DYNAMICIST [facility] VA 5.02 L 08/05/2022 2:21 PM FLUID DYNAMICIST [facility] SUBSTANCE POST Albuterol 08/05/2022 2:21 PM FLUID DYNAMICIST [facility] 08/05/2022 12:3 1 PM FLUID DYNAMICIST Impressions [facility] - 08/05/2022 2:21 PM FLUID DYNAMICIST Abnormal study. Moderately reduced diffusing capacity could [...] curve. Suhail Davies M.D. PFT ORD ERABLES [place] SENT SUITE NA * PET CT Skull to Thigh FDG (08/05/2022 11:40 AM FLUID DYNAMICIST) Anatomical Region Laterality Modality Body, Nuclear Medicine PET R ST LOS, PET ARZ LOS, Nuclear Medicine PET FLA LOS, Nuclear Medicine N/A Positron Emission Tomography (PET), Positron Emission Tomography (PET) 08/05/2022 1:56 PM FLUID DYNAMICIST Impressions 08/05/2022 8:37 PM FLUID DYNAMICIST 1. Overall findings most consistent with lung malignancy with pulmonary, helga, osseous, hepatic metastasis. Please see the same day brain MRI for brain findings. 2. Small focus of FDG uptake at the right parotid gland, could be from a parotid primary, metastatic or a lymph node. Narrative 08/05/2022 8:37 PM FLUID DYNAMICIST EXAM: ??PET CT SKULL TO THIGH FDG Serum glucose at time of F-18 FDG injection was 106 mg/dL. Patient followed standard dietary/fasting requirements for this exam. RADIOPHARMACEUTICAL/MEDS: Route: intravenous fludeoxyglucose F 18 injection HALFWAY (FDG F-18),14.91 millicurie TECHNIQUE: ??F-18 FDG PET/CT [...] RADIOPHARMACEUTICAL/MEDS: Route: intravenous fludeoxyglucose F 18 injection HALFWAY (FDG F-18),14.91 millicurie TECHNIQUE: F-18 FDG PET/CT [...] vertebral body (image 187) right L2 pedicle ([id number]), left T12 pedicle (image 143, and right [...] the left hepatic lobe SUV max 4.2 (). Small focus of FDG uptake within the [...] or a lymph node. Suhail Davies M.D. [facility] PROCEDURES * MR Brain without and with IV Contrast (07/28/2022 11:02 AM FLUID DYNAMICIST) Anatomical Region Laterality Modality Head, Brain, Neuroradiology RST LOS, Neuroradiology ARZ LOS, Neuroradiology FLA LOS N/A Magnetic Resonance 07/28/2022 11:4 7 AM FLUID DYNAMICIST Impressions 07/28/2022 11:57 AM FLUID DYNAMICIST Numerous enhancing foci throughout the brain compatible with metastases in the setting of the identified lung mass. Narrative 07/28/2022 11:57 AM FLUID DYNAMICIST EXAM: MR BRAIN WITHOUT AND WITH IV [...] in this encounter Visit Diagnoses Diagnosis Nodule Pulmonary- Primary Nodule Pulmonary Nodule Pulmonary Nodule Pulmonary documented in this encounter Care Teams Geographic Information Scientist Relationship Specialty Start Date End Date Suhail Burrows M.B.B.S., M.D. [address] [place] [phone] PCP - General Family Medicine 06/09/22 documented as of this encounter
== END 2023-06-26 09:07 | disposition home or self-care (01) ==
PROVIDERS: PCP Family Medicine; Visit Provider Internal Medicine
DX: C34.32 Malignant neoplasm of lower lobe, left bronchus or lung (principal); I67.82 Cerebral ischemia; C79.31 Secondary malignant neoplasm of brain
CPT/HCPCS: 70553; A9575

== ENCOUNTER 2023-08-24 15:02 | Outpatient (CLI) | payer BC, SELFPAY ==
--- NOTE | 2023-08-24 15:30 | MR_ITS ---
Patient: MARGARET CABALLERO Facility:?[facility] RIS Patient ID:?[id number] Site Patient ID:?[id number]. Site :?[id number] Study:?MRI-Head W/ and W/O Cont 15 CC DOTAREM-08/24/2023 4:23:54 PM Ordering Physician:BOLA HOGUE Final Report: INDICATION: Lung cancer. Staging. COMPARISON: 06/26/2023 and 11/22/2022. TECHNIQUE: Multiplanar T1, T2, FLAIR and diffusion-weighted imaging. Post gadolinium T1 weighted sequences. FINDINGS: Compared to the prior exams, stable tiny 2 mm focus of enhancement of the left Ugalde radiata (series 11, image 63) consistent with metastasis. This is unchanged from 06/26/2023. Continued decrease in size of the metastatic lesion of the left middle cerebellar peduncle now measuring approximately 2 mm maximum diameter (series 11, image 124). Otherwise, remaining metastatic lesions of the right superior frontal gyrus and left cerebellum as seen on 06/26/2023 have completely resolved consistent with response to treatment. There is a new tiny 2 millimeter enhancing nodule along the ventral margin of the right midbrain and cerebral peduncle (series Louann image 98). No surrounding edema. Finding is indeterminate and a new metastasis can not be excluded. There remains a incidental tiny developmental venous anomaly of the right ugalde radiata. Normal brain parenchymal morphology. Scattered patchy and confluent T2/FLAIR signal hyperintensity within the white matter of both cerebral hemispheres which may represent a combination of both chronic deep white matter small vessel ischemic changes and posttreatment changes. No intracranial hemorrhage. No abnormal ventricular dilatation. Intracranial vascular flow voids preserved. No mass effect or midline shift. No restricted diffusion to suggest acute ischemia. Bilateral orbits are unremarkable. Normal appearing sella. Visualized paranasal sinuses and mastoid air cells are unremarkable. IMPRESSION: 1. Compared to the previous exams, continued interval decrease in size of metastatic lesions of the left ugalde radiata and left middle cerebellar peduncle. Remaining metastatic lesions have resolved. Overall, findings are consistent with continued response to treatment. 2. However, new tiny 2 millimeter enhancing nodule along the ventral margin of the right midbrain cerebral peduncle may represent new metastasis. 3. No acute intracranial abnormality. 4. Normal brain parenchymal morphology. Patchy and confluent T2/FLAIR signal hyperintensity within the white matter which may represent a combination of both chronic deep white matter small vessel ischemic changes and posttreatment changes. Dictated by Domingo Vargas MD @ 08/25/2023 1:17:23 PM Signed by:?Domingo Vargas MD @08/25/2023 1:17:23 PM (Electronic Signature)
--- NOTE | 2023-08-24 17:00 | PE_ITS ---
[facility] [address] [facility] [address] Phone:?[phone] Fax:?[phone] Referring Physician Information: Lakisha Julian M.D. [address] [facility] [address] Phone:?[phone] Fax:?[phone] Patient:Mee Deleon D.O.B:?1960 Sex:?Female Phone:?[phone] [facility] MRN:?[id number] Exam Date:?08/24/2023 EXAM: PET/CT SCAN MID-ORBITS TO PROXIMAL THIGHS CLINICAL INFORMATION: Non-small cell lung carcinoma; restaging. TECHNICAL INFORMATION: Spiral acquisition of data was obtained from the mid orbits to the proximal thighs with reconstruction of 3.75 mm thick images at 3.[address] data was used for attenuation correction. PET scanning was performed through the same anatomic range 63 minutes following administration of 14.44 mCi of 18-FDG delivered intravenously. The patient's glucose at the time of the injection was 85 mg/dL. PET, CT and PET/CT fusion images are interpreted using a computer viewing workstation. SUV max liver 2.53; BMI normalization method. INTERPRETATION: Head and Neck: Physiologic intracranial uptake is identified. See additional MR report dated 06/26/2023 regarding intracranial metastasis. Chest: Stable, approximately 20 mm, left lower lobe lesion, SUV max 3.7. Stable 1 cm right upper lobe nodule image 88, SUV max 1.42, previously 1.7. Stable 12 mm subcarinal nodule, FDG uptake 5.02, previously 10.15. Previous identified right suprahilar node is non-FDG avid on today's study. Stable size of left hilar adenopathy, SUV max 11.06, previously 7.45. Abdomen, Pelvis and Proximal Thighs: A few mildly enlarging gastrohepatic/peripancreatic lymph nodes, measuring 8-11 mm short axis diameter, images 137 through 151, demonstrating increasing prominent FDG avidity on current study, SUV max 17.36, image 141. Physiologic distribution of radiotracer throughout the GI and tracts and liver. No pathologic mesenteric/retroperitoneal adenopathy. MUSCULOSKELETAL: Numerous sclerotic metastatic lesions with FDG avidity, including right humeral head, bilateral ribs, thoracic/lumbar vertebrae and bony pelvis, SUV max left sacral lesion 7.92, image 193. No definite new lesions are identified. CONCLUSION: 1. Stable appearance of left hilar, subcarinal adenopathy, left lower lobe and right upper lobe lung lesions. 2. Stable appearance of multiple sclerotic osseous lesions. 3. Mildly increasing size of gastrohepatic/peripancreatic lymphadenopathy, measuring up to 11 mm short axis diameter with increasing prominent FDG avidity on current study, SUV max 17.36. 4. See additional brain MRI report dated 06/26/2023 regarding known intracranial metastasis. Electronically signed on 08/27/2023 11:17:00 AM by Clemente Craven M.D.
== END 2023-08-24 15:03 | disposition home or self-care (01) ==
LOC: MRI 15:03
PROVIDERS: PCP Family Medicine; Visit Provider Internal Medicine Hematology & Oncology
DX: C34.92 Malignant neoplasm of unspecified part of left bronchus or lung (principal); C34.90 Malignant neoplasm of unspecified part of unspecified bronchus or lung
CPT/HCPCS: 70553; 78815; A9552; A9575

== ENCOUNTER 2023-08-30 09:30 | Outpatient (RCR) | payer BC, SELFPAY ==
[2023-03-15 09:06] LABS: Basophils Absolute Auto 0.02 K/uL (0.00-0.30); Basophils Percent Auto 0.4 % (0.0-3.0); Eosinophils Absolute Auto 0.14 K/uL (0.00-0.50); Eosinophils Percent Auto 2.7 % (0.0-7.0); Hematocrit 43.3 % (33.0-51.0); Hemoglobin* 14.2 gm/dL (12.0-16.0); Immature Granulocytes Abs Auto 0.01 K/uL (0.00-0.30); Immature Granulocytes Pct Auto 0.2 %; Lymphocytes Absolute Auto 1.17 K/uL (0.90-2.90); Lymphocytes Percent Auto 22.9 % (20-44); Mean Corpuscular HGB Conc 33 gm/dL (32-36); Mean Corpuscular Hemoglobin 30 pg (26-34); Mean Corpuscular Volume 91 fL (80-100); Monocytes Percent Auto 5.5 % (0.0-11.0); Neutrophils Percent Auto 68.3 % (42.0-72.0); Platelet Count* 308 K/uL (140-440); RDW Coefficient of Variation % 12.9 % (11.5-15.5); Red Blood Count 4.77 m/uL (4.00-5.20); White Blood Count* 5.12 K/uL (4.50-11.00)
[2023-03-15 09:08] LABS: Slide Review Reflex No
[2023-03-15 09:18] LABS: Albumin* 4.2 g/dL (3.3-5.0); Chloride* 107 mmol/L (96-114)
[2023-03-15 09:19] LABS: Potassium* 4.4 mmol/L (3.6-5.1); Sodium* 139 mmol/L (135-149)
[2023-03-15 09:21] LABS: Anion Gap 7 mEq/L (7-15); Aspartate Amino Transferase* 24 U/L (12-35); Bilirubin Total* 0.6 mg/dL (0.1-1.5); Carbon Dioxide* 25 mmol/L (20-32); Creatinine* 0.6 mg/dL (0.5-1.5); Estimated Glomerular Filt Rate 102 ml/min; Total Protein* 7.4 g/dL (6.0-8.3)
[2023-03-15 09:22] LABS: Alanine Aminotransferase* 14 U/L (4-35); Alkaline Phosphatase* 52 U/L (40-150); Blood Urea Nitrogen* 9 mg/dL (7-30); Calcium* 8.5 mg/dL (8.4-10.6); Glucose* 121 mg/dL (60-115)
[2023-03-16 09:15] VITALS: BP 103/65; PULSE 69; RESP 16; TEMP 36.2; O2SAT 98
[2023-03-16] MEDS: PEMBROLIZUMAB 200 MG, TUBING PRIMARY 1 EACH, In-line 0.2 micron filter set 1 EACH in 0.... 216 MG IVPB (09:46)
[2023-03-16] MEDS: ZOLEDRONIC ACID 4 MG in 0.9 % SODIUM CHLORIDE 100 ml 100 ML 420 MG IVPB (10:17)
[2023-03-16] MEDS: 0.9 % SODIUM CHLORIDE 250 ml IV (10:18)
[2023-03-16] MEDS: SODIUM CHLORIDE 0.9 % (FLUSH) 10 ML SYRINGE IVF (10:18)
[2023-04-04 09:18] LABS: Basophils Absolute Auto 0.03 K/uL (0.00-0.30); Basophils Percent Auto 0.3 % (0.0-3.0); Eosinophils Absolute Auto 0.18 K/uL (0.00-0.50); Hematocrit 43.3 % (33.0-51.0); Immature Granulocytes Abs Auto 0.01 K/uL (0.00-0.30); Immature Granulocytes Pct Auto 0.1 %; Lymphocytes Percent Auto 14.2 % (20-44); Mean Corpuscular HGB Conc 32 gm/dL (32-36); Mean Corpuscular Hemoglobin 30 pg (26-34); Mean Corpuscular Volume 94 fL (80-100); Monocytes Percent Auto 5.1 % (0.0-11.0); Neutrophils Percent Auto 78.3 % (42.0-72.0); Platelet Count* 383 K/uL (140-440); Red Blood Count 4.63 m/uL (4.00-5.20); White Blood Count* 8.97 K/uL (4.50-11.00)
[2023-04-04 09:34] LABS: Slide Review Reflex No
[2023-04-04 09:45] LABS: Albumin* 4.3 g/dL (3.3-5.0); Chloride* 106 mmol/L (96-114); Sodium* 140 mmol/L (135-149)
[2023-04-04 09:48] LABS: Alkaline Phosphatase* 56 U/L (40-150); Anion Gap 9 mEq/L (7-15); Aspartate Amino Transferase* 28 U/L (12-35); Bilirubin Total* 0.6 mg/dL (0.1-1.5); Blood Urea Nitrogen* 11 mg/dL (7-30); Carbon Dioxide* 25 mmol/L (20-32); Creatinine* 0.7 mg/dL (0.5-1.5); Estimated Glomerular Filt Rate 98 ml/min; Total Protein* 7.6 g/dL (6.0-8.3)
[2023-04-04 09:49] LABS: Alanine Aminotransferase* 15 U/L (4-35); Calcium* 8.9 mg/dL (8.4-10.6); Glucose* 115 mg/dL (60-115)
[2023-04-05] MEDS: ZOLEDRONIC ACID 4 MG in 0.9 % SODIUM CHLORIDE 100 ml 100 ML 420 MG IVPB (10:32)
[2023-04-05] MEDS: PEMBROLIZUMAB 200 MG, TUBING PRIMARY 1 EACH, In-line 0.2 micron filter set 1 EACH in 0.... 216 MG IVPB (10:51)
[2023-04-25 09:04] LABS: Basophils Absolute Auto 0.04 K/uL (0.00-0.30); Basophils Percent Auto 0.5 % (0.0-3.0); Eosinophils Absolute Auto 0.25 K/uL (0.00-0.50); Eosinophils Percent Auto 3.3 % (0.0-7.0); Hematocrit 40.4 % (33.0-51.0); Hemoglobin* 13.3 gm/dL (12.0-16.0); Immature Granulocytes Abs Auto 0.01 K/uL (0.00-0.30); Immature Granulocytes Pct Auto 0.1 %; Lymphocytes Percent Auto 19.2 % (20-44); Mean Corpuscular HGB Conc 33 gm/dL (32-36); Mean Corpuscular Hemoglobin 31 pg (26-34); Mean Corpuscular Volume 93 fL (80-100); Monocytes Percent Auto 5.5 % (0.0-11.0); Neutrophils Absolute Auto 5.44 K/uL (1.7-7.0); Neutrophils Percent Auto 71.4 % (42.0-72.0); Platelet Count* 335 K/uL (140-440); RDW Coefficient of Variation % 13.3 % (11.5-15.5); Red Blood Count 4.36 m/uL (4.00-5.20); White Blood Count* 7.62 K/uL (4.50-11.00)
[2023-04-25 09:07] LABS: Slide Review Reflex No
[2023-04-25 09:15] LABS: Chloride* 106 mmol/L (96-114)
[2023-04-25 09:16] LABS: Albumin* 4.3 g/dL (3.3-5.0); Potassium* 4.8 mmol/L (3.6-5.1); Sodium* 140 mmol/L (135-149)
[2023-04-25 09:18] LABS: Anion Gap 6 mEq/L (7-15); Bilirubin Total* 0.3 mg/dL (0.1-1.5); Carbon Dioxide* 28 mmol/L (20-32); Creatinine* 0.6 mg/dL (0.5-1.5); Estimated Glomerular Filt Rate 102 ml/min
[2023-04-25 09:19] LABS: Alanine Aminotransferase* 13 U/L (4-35); Alkaline Phosphatase* 45 U/L (40-150); Aspartate Amino Transferase* 25 U/L (12-35); Blood Urea Nitrogen* 11 mg/dL (7-30); Calcium* 8.9 mg/dL (8.4-10.6); Glucose* 97 mg/dL (60-115); Total Protein* 7.4 g/dL (6.0-8.3)
[2023-04-26 09:36] VITALS: BP 100/68; PULSE 55; RESP 16; TEMP 36.4; O2SAT 98
[2023-04-26] MEDS: ZOLEDRONIC ACID 4 MG in 0.9 % SODIUM CHLORIDE 100 ml 100 ML 420 MG IVPB (10:26)
[2023-04-26] MEDS: PEMBROLIZUMAB 200 MG, TUBING PRIMARY 1 EACH, In-line 0.2 micron filter set 1 EACH in 0.... 216 MG IVPB (10:49)
[2023-05-15 13:26] LABS: Basophils Absolute Auto 0.03 K/uL (0.00-0.30); Basophils Percent Auto 0.4 % (0.0-3.0); Eosinophils Absolute Auto 0.21 K/uL (0.00-0.50); Eosinophils Percent Auto 2.7 % (0.0-7.0); Hematocrit 41.5 % (33.0-51.0); Hemoglobin* 13.6 gm/dL (12.0-16.0); Immature Granulocytes Abs Auto 0.01 K/uL (0.00-0.30); Immature Granulocytes Pct Auto 0.1 %; Lymphocytes Percent Auto 20.9 % (20-44); Mean Corpuscular HGB Conc 33 gm/dL (32-36); Mean Corpuscular Hemoglobin 31 pg (26-34); Mean Corpuscular Volume 93 fL (80-100); Monocytes Percent Auto 7.2 % (0.0-11.0); Neutrophils Absolute Auto 5.24 K/uL (1.7-7.0); Neutrophils Percent Auto 68.7 % (42.0-72.0); Platelet Count* 355 K/uL (140-440); RDW Coefficient of Variation % 13.3 % (11.5-15.5); Red Blood Count 4.45 m/uL (4.00-5.20); White Blood Count* 7.64 K/uL (4.50-11.00)
[2023-05-15 13:31] LABS: Slide Review Reflex No
[2023-05-15 13:35] LABS: Chloride* 106 mmol/L (96-114)
[2023-05-15 13:36] LABS: Albumin* 4.6 g/dL (3.3-5.0); Potassium* 4.5 mmol/L (3.6-5.1); Sodium* 136 mmol/L (135-149)
[2023-05-15 13:39] LABS: Alanine Aminotransferase* 13 U/L (4-35); Alkaline Phosphatase* 50 U/L (40-150); Anion Gap 4 mEq/L (7-15); Aspartate Amino Transferase* 23 U/L (12-35); Bilirubin Total* 0.4 mg/dL (0.1-1.5); Blood Urea Nitrogen* 12 mg/dL (7-30); Carbon Dioxide* 26 mmol/L (20-32); Creatinine* 0.7 mg/dL (0.5-1.5); Estimated Glomerular Filt Rate 98 ml/min; Glucose* 92 mg/dL (60-115); Total Protein* 7.5 g/dL (6.0-8.3)
[2023-05-15 13:40] LABS: Calcium* 9.5 mg/dL (8.4-10.6)
[2023-05-17] MEDS: ZOLEDRONIC ACID 4 MG in 0.9 % SODIUM CHLORIDE 100 ml 100 ML 420 MG IVPB (09:23)
[2023-05-17] MEDS: PEMBROLIZUMAB 200 MG, TUBING PRIMARY 1 EACH, In-line 0.2 micron filter set 1 EACH in 0.... 216 MG IVPB (09:41)
[2023-06-06 08:12] VITALS: BP 150/79; PULSE 80; RESP 16; TEMP 35.4; O2SAT 95
[2023-06-06 08:44] LABS: Basophils Absolute Auto 0.04 K/uL (0.00-0.30); Basophils Percent Auto 0.6 % (0.0-3.0); Eosinophils Absolute Auto 0.19 K/uL (0.00-0.50); Eosinophils Percent Auto 2.7 % (0.0-7.0); Hematocrit 42.2 % (33.0-51.0); Hemoglobin* 13.8 gm/dL (12.0-16.0); Immature Granulocytes Abs Auto 0.01 K/uL (0.00-0.30); Immature Granulocytes Pct Auto 0.1 %; Lymphocytes Percent Auto 15.3 % (20-44); Mean Corpuscular HGB Conc 33 gm/dL (32-36); Mean Corpuscular Hemoglobin 31 pg (26-34); Mean Corpuscular Volume 94 fL (80-100); Monocytes Percent Auto 6.2 % (0.0-11.0); Neutrophils Percent Auto 75.1 % (42.0-72.0); Platelet Count* 272 K/uL (140-440); White Blood Count* 6.93 K/uL (4.50-11.00)
[2023-06-06 08:52] LABS: Slide Review Reflex No
[2023-06-06 08:59] LABS: Albumin* 4.6 g/dL (3.3-5.0); Chloride* 106 mmol/L (96-114); Potassium* 4.5 mmol/L (3.6-5.1); Sodium* 138 mmol/L (135-149)
[2023-06-06 09:01] LABS: Bilirubin Total* 0.4 mg/dL (0.1-1.5); Creatinine* 0.6 mg/dL (0.5-1.5); Estimated Glomerular Filt Rate 101 ml/min
[2023-06-06 09:02] LABS: Alanine Aminotransferase* 14 U/L (4-35); Alkaline Phosphatase* 43 U/L (40-150); Anion Gap 8 mEq/L (7-15); Aspartate Amino Transferase* 20 U/L (12-35); Blood Urea Nitrogen* 11 mg/dL (7-30); Carbon Dioxide* 24 mmol/L (20-32); Glucose* 97 mg/dL (60-115); Total Protein* 7.7 g/dL (6.0-8.3)
[2023-06-07 08:38] VITALS: BP 122/60; PULSE 59; RESP 16; TEMP 36.4; O2SAT 99
[2023-06-07] MEDS: ZOLEDRONIC ACID 4 MG in 0.9 % SODIUM CHLORIDE 100 ml 100 ML 420 MG IVPB (09:01)
[2023-06-07] MEDS: PEMBROLIZUMAB 200 MG, TUBING PRIMARY 1 EACH, In-line 0.2 micron filter set 1 EACH in 0.... 216 MG IVPB (09:23)
[2023-06-07] MEDS: SODIUM CHLORIDE 0.9 % (FLUSH) 10 ML SYRINGE IVF (09:57)
[2023-06-07] MEDS: 0.9 % SODIUM CHLORIDE 250 ml IV (09:57)
[2023-06-26 10:45] LABS: Basophils Absolute Auto 0.03 K/uL (0.00-0.30); Basophils Percent Auto 0.4 % (0.0-3.0); Eosinophils Absolute Auto 0.18 K/uL (0.00-0.50); Eosinophils Percent Auto 2.7 % (0.0-7.0); Hematocrit 43.6 % (33.0-51.0); Hemoglobin* 14.4 gm/dL (12.0-16.0); Immature Granulocytes Abs Auto 0.01 K/uL (0.00-0.30); Immature Granulocytes Pct Auto 0.1 %; Lymphocytes Percent Auto 14.3 % (20-44); Mean Corpuscular HGB Conc 33 gm/dL (32-36); Mean Corpuscular Hemoglobin 31 pg (26-34); Mean Corpuscular Volume 95 fL (80-100); Neutrophils Percent Auto 77.5 % (42.0-72.0); Platelet Count* 326 K/uL (140-440); RDW Coefficient of Variation % 12.9 % (11.5-15.5); Red Blood Count 4.61 m/uL (4.00-5.20); White Blood Count* 6.77 K/uL (4.50-11.00)
[2023-06-26 10:49] LABS: Slide Review Reflex No
[2023-06-26 11:36] LABS: Albumin* 4.8 g/dL (3.3-5.0); Chloride* 107 mmol/L (96-114); Potassium* 4.7 mmol/L (3.6-5.1); Sodium* 139 mmol/L (135-149)
[2023-06-26 11:38] LABS: Creatinine* 0.6 mg/dL (0.5-1.5); Estimated Glomerular Filt Rate 101 ml/min
[2023-06-26 11:39] LABS: Alanine Aminotransferase* 14 U/L (4-35); Alkaline Phosphatase* 46 U/L (40-150); Anion Gap 4 mEq/L (7-15); Aspartate Amino Transferase* 35 U/L (12-35); Bilirubin Total* 0.5 mg/dL (0.1-1.5); Blood Urea Nitrogen* 12 mg/dL (7-30); Calcium* 9.3 mg/dL (8.4-10.6); Carbon Dioxide* 28 mmol/L (20-32); Glucose* 95 mg/dL (60-115); Total Protein* 8.1 g/dL (6.0-8.3)
[2023-06-28] MEDS: ZOLEDRONIC ACID 4 MG in 0.9 % SODIUM CHLORIDE 100 ml 100 ML 420 MG IVPB (11:23)
[2023-06-28] MEDS: SODIUM CHLORIDE 0.9 % (FLUSH) 10 ML SYRINGE IVF (11:23)
[2023-06-28] MEDS: 0.9 % SODIUM CHLORIDE 250 ml IV (11:23)
[2023-06-28] MEDS: PEMBROLIZUMAB 200 MG, TUBING PRIMARY 1 EACH, In-line 0.2 micron filter set 1 EACH in 0.... 216 MG IVPB (11:27)
[2023-07-18 10:16] LABS: Basophils Absolute Auto 0.05 K/uL (0.00-0.30); Basophils Percent Auto 0.7 % (0.0-3.0); Eosinophils Absolute Auto 0.22 K/uL (0.00-0.50); Eosinophils Percent Auto 3.3 % (0.0-7.0); Hematocrit 41.6 % (33.0-51.0); Hemoglobin* 13.6 gm/dL (12.0-16.0); Immature Granulocytes Abs Auto 0.01 K/uL (0.00-0.30); Immature Granulocytes Pct Auto 0.1 %; Lymphocytes Percent Auto 19.7 % (20-44); Mean Corpuscular HGB Conc 33 gm/dL (32-36); Mean Corpuscular Hemoglobin 31 pg (26-34); Mean Corpuscular Volume 95 fL (80-100); Neutrophils Absolute Auto 4.64 K/uL (1.7-7.0); Neutrophils Percent Auto 69.2 % (42.0-72.0); Platelet Count* 330 K/uL (140-440); RDW Coefficient of Variation % 12.7 % (11.5-15.5); Red Blood Count 4.37 m/uL (4.00-5.20); White Blood Count* 6.71 K/uL (4.50-11.00)
[2023-07-18 10:21] LABS: Slide Review Reflex No
[2023-07-18 10:27] LABS: Albumin* 4.7 g/dL (3.3-5.0); Chloride* 105 mmol/L (96-114); Potassium* 4.2 mmol/L (3.6-5.1); Sodium* 140 mmol/L (135-149)
[2023-07-18 10:29] LABS: Creatinine* 0.8 mg/dL (0.5-1.5); Estimated Glomerular Filt Rate 83 ml/min
[2023-07-18 10:30] LABS: Alanine Aminotransferase* 16 U/L (4-35); Alkaline Phosphatase* 47 U/L (40-150); Anion Gap 7 mEq/L (7-15); Aspartate Amino Transferase* 23 U/L (12-35); Bilirubin Total* 0.5 mg/dL (0.1-1.5); Blood Urea Nitrogen* 14 mg/dL (7-30); Calcium* 9.4 mg/dL (8.4-10.6); Carbon Dioxide* 28 mmol/L (20-32); Glucose* 78 mg/dL (60-115); Total Protein* 7.6 g/dL (6.0-8.3)
[2023-07-19 11:03] VITALS: BP 123/70; PULSE 64; RESP 16; TEMP 36.1; O2SAT 97
[2023-07-19] MEDS: SODIUM CHLORIDE 0.9 % (FLUSH) 10 ML SYRINGE IVF (11:37)
[2023-07-19] MEDS: ZOLEDRONIC ACID 4 MG in 0.9 % SODIUM CHLORIDE 100 ml 100 ML 420 MG IVPB (11:37)
[2023-07-19] MEDS: 0.9 % SODIUM CHLORIDE 250 ml IV (11:38)
[2023-07-19] MEDS: PEMBROLIZUMAB 400 MG, TUBING PRIMARY 1 EACH, In-line 0.2 micron filter set 1 EACH in 0.... 232 MG IVPB (11:58)
--- NOTE | 2023-08-07 13:35 | ONC.NURNOTE ---
Radiology called about scheduling patient for an MRI. No orders in, but noted in Dr. Julian note that both MRI and PET scan needed in August. PET is scheduled per clinic RN on 08/24/2023, MRI order placed and radiology notified to please do the same day.
[2023-08-30 09:11] LABS: Basophils Absolute Auto 0.03 K/uL (0.00-0.30); Basophils Percent Auto 0.4 % (0.0-3.0); Eosinophils Absolute Auto 0.17 K/uL (0.00-0.50); Eosinophils Percent Auto 2.4 % (0.0-7.0); Hematocrit 42.6 % (33.0-51.0); Hemoglobin* 13.9 gm/dL (12.0-16.0); Immature Granulocytes Abs Auto 0.01 K/uL (0.00-0.30); Immature Granulocytes Pct Auto 0.1 %; Lymphocytes Percent Auto 15.1 % (20-44); Mean Corpuscular HGB Conc 33 gm/dL (32-36); Mean Corpuscular Hemoglobin 32 pg (26-34); Mean Corpuscular Volume 97 fL (80-100); Monocytes Percent Auto 5.5 % (0.0-11.0); Neutrophils Percent Auto 76.5 % (42.0-72.0); Platelet Count* 363 K/uL (140-440); RDW Coefficient of Variation % 12.3 % (11.5-15.5); Red Blood Count 4.41 m/uL (4.00-5.20); Slide Review Reflex No
[2023-08-30 09:30] LABS: Albumin* 4.5 g/dL (3.3-5.0); Chloride* 106 mmol/L (96-114); Sodium* 139 mmol/L (135-149)
[2023-08-30 09:31] LABS: Potassium* 4.3 mmol/L (3.6-5.1)
[2023-08-30 09:33] LABS: Alkaline Phosphatase* 48 U/L (40-150); Anion Gap 4 mEq/L (7-15); Aspartate Amino Transferase* 25 U/L (12-35); Bilirubin Total* 0.4 mg/dL (0.1-1.5); Blood Urea Nitrogen* 11 mg/dL (7-30); Carbon Dioxide* 29 mmol/L (20-32); Creatinine* 0.6 mg/dL (0.5-1.5); Estimated Glomerular Filt Rate 101 ml/min; Glucose* 95 mg/dL (60-115); Total Protein* 7.4 g/dL (6.0-8.3)
[2023-08-30 09:34] LABS: Alanine Aminotransferase* 12 U/L (4-35); Calcium* 9.6 mg/dL (8.4-10.6)
[2023-08-30] MEDS: PEMBROLIZUMAB 400 MG, TUBING PRIMARY 1 EACH, In-line 0.2 micron filter set 1 EACH in 0.... 232 MG IVPB (10:16)
[2023-08-30 23:04] LABS: Cortisol, Serum 5.6 ug/dL
== END 2023-09-11 23:59 | disposition home or self-care (01) ==
LOC: CCIC 09:30
PROVIDERS: Clinical Nurse Specialist; PCP Family Medicine; Referring Provider Family Medicine; Visit Provider Internal Medicine Hematology & Oncology
DX: C34.92 Malignant neoplasm of unspecified part of left bronchus or lung (principal); Z51.12 Encounter for antineoplastic immunotherapy; C79.51 Secondary malignant neoplasm of bone; Z51.81 Encounter for therapeutic drug level monitoring
CPT/HCPCS: 36415; 80053; 82533; 84443; 85025; 96376; 96413; 99211; 99212; 99213; 99215; G0463; J3489; J7050; J9271

== ENCOUNTER 2023-11-03 14:55 | Outpatient (CLI) | payer BC, SELFPAY ==
--- OUTSIDE RECORDS SUMMARY | 2023-11-03 14:58 | XMS_ITS | Encounter Summary ---
Author Organization [facility] Address [address] [place] [address] Care Team Providers Care Dray Driver Name Role Phone Suhail Burrows M.D. 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 [address] [place] [address] [facility] Region Referral ID Status Reason Start Date Expiration Date V isits Requested Visits Authorized [id number] Authorized 08/30/2023 08/29/2024 10 10 Encounter Details Date Type Department Care Team (Latest Contact Info) Description 09/26/2023 4:00 PM CDT - 09/26/2023 11:59 PM CDT Hospital Encounter Department of Radiation Oncology in [place], [place] [address] [place] [address] Clemente Feng M.D. [address] [place] [phone] Ingrid Feng R.N. 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 Take about 45 minutes before each radiation treatment. 10 tablet 09/12/2023 documented as of this encounter Progress Notes * Ingrid Feng RHectorN. - 09/26/2023 4:00 PM CDT PHONE-CALL FOLLOW UP HISTORY OF PRESENT ILLNESS Miss Sandrine Deleon is a 63 y.o. 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 Radiotherapy to gastrohepatic/peripancreatic lymph nodes and a lesion in the left S1 region initiated on September 20, 2023; completed on September 26, 2023 Treatment Course: 4xMultiSite Plan ID Fractions Dose / Fraction (cGy) Dose Treated (cGy) Dose Planned (cGy) First Treatment Last Treatment Elapsed Days [id number] 5 / 5 500 2500 2500 09/20/2023 09/26/2023 6 [id number] 500 2500 2500 09/20/2023 09/26/2023 6 Course Summary 09/20/2023 09/26/2023 6 REASON FOR CALL End of treatment symptom assessment. ASSESSMENT Patient reports to be feeling well overall. She has been taking Ondansetron pre- treatment and that has worked well at preventing treatment related nausea. She does endorse constipation but she is managing this with stool softeners. She had no gas, bloating or abdominal pain. She denies any other issues or concerns at this time. PLAN Discussed with patient that radiation related side effects should start to resolve in the coming weeks. She can continue to use Ondansetron as needed for nausea and treat the constipation with stool softeners. Discussed with patient that Dr. Feng will see her back mid-November following a brain MRIthat will be ordered at [place]. She will continue ongoing follow with Dr. Julian at [facility]. She has no other questions or concerns at this time. Disposition/Recommendation: self-care - appropriate at this time, patient encouraged to call back with questions Information/Education: patient/caller able to teach back Caller agreeable to plan of care: yes The following references were used: provider Dr. Feng documented in this encounter Plan of Treatment Upcoming Encounters Date Type Department Care Team (Late st Contact Info) Description 11/17/2023 4:00 PM CDT Appointment Department of Radiology in [place], [place] [address] [place] [address] Suhail Burrows M.B.B.S., [place] [address] [place] [address] Discharge Disposition: Home or Self Care 12/26/2023 9:30 AM CDT Appointment Department of Radiology in [place], [place] [address] [place] [address] Lakisha Julian M.D. 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 [address] [place] [address] [place] [id number] PCP - General Family Medicine 06/09/22 documented as of this encounter
--- OUTSIDE RECORDS SUMMARY | 2023-11-03 14:58 | XMS_ITS | Referral Summary ---
Author Organization [facility] Address [address] [place] [address] Care Team Providers Care Smt Operator Name Role Phone Suhail Burrows M.D. Primary Care P dena Source Comments Patient records contain information from all sites at [facility]. For routine questions regarding patient records, call [phone] during business hours, M-F 8:00 AM - 5:00 PM Central Time. Record requests for emergency care only can be directed to [phone] at any time.[facility] Encounters Date Type Department Care Team Description 10/17/2023 Orders Only [facility] PCP [facility] Suhail Burrows M.B.B.S., [place] Screening Mammogram Breast Cancer 10/11/2023 Orders Only Department of Oncology in [place], [place] [address] [place] [address] Lakisha Julian M.D. 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) (Primary Dx) 10/03/2023 Orders Only Department of Radiation Oncology in [place], [place] [address] [place] [address] Nilam Clarke P.A.-C., M.S. Secondary Malignant Neoplasm Brain (HCC) (Primary Dx) 09/26/2023 Documentation Department of Radiation Oncology in [place], [place] [address] [place] [address] Clemente Feng M.D. 09/26/2023 4:00 PM CDT - 09/26/2023 11:59 PM CDT Hospital Encounter Department of Radiation Oncology in [address] [address] Clemente Feng M.D. Retterath, Chelsey A, R.N. 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 Discharge Disposition: Home or Self Care 09/25/2023 2:50 PM CDT - 09/25/2023 11:59 PM CDT Hospital Encounter Department of Radiation Oncology in [address] [address] Clemente Feng M.D. Discharge Disposition: Home or Self Care 09/22/2023 2:50 PM CDT - 09/22/2023 11:59 PM CDT Hospital Encounter Department of Radiation Oncology in [address] [address] Clemente Feng M.D. Discharge Disposition: Home or Self Care 09/21/2023 2:50 PM CDT - 09/21/2023 11:59 PM CDT Hospital Encounter Department of Radiation Oncology in [address] [address] Clemente Feng M.D. Discharge Disposition: Home or Self Care 09/20/2023 2:46 PM CDT - 09/20/2023 6:02 PM CDT Hospital Encounter Department of Radiation Oncology in [address] [address] Clemente Feng M.D. 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 Discharge Disposition: Home or Self Care 09/12/2023 12:50 PM CDT - 09/15/2023 1:42 PM CDT Hospital Encounter Department of Radiation Oncology in [address] [address] Clemente Feng M.D. Retterath, Chelsey A, RCt 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) (Primary Dx) 09/12/2023 1:54 PM CDT - 09/12/2023 9:37 PM CDT Hospital Encounter Department of Radiation Oncology in [address] [address] Clemente Feng M.D. 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 Results 08/08/2023 11:18 AM ELECTRO MECHANICAL ENGINEER - 08/08/2023 11:59 PM ELECTRO MECHANICAL ENGINEER Hospital Encounter Department of Laboratory Medicine in [place], [place] [address] [place] [address] Tomer Hinson M.D. Fatigue; Abnormal Thyroid Blood Test Discharge Disposition: Home or Self Care 08/08/2023 10:30 AM ELECTRO MECHANICAL ENGINEER Comprehensive Visit Department of Endocrinology in [place] [address] [place] [address] Tomer Hinson M.D. Abnormal Thyroid Blood Test (Primary Dx); 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); Secondary Malignant Neoplasm Lymph Node Intrathoracic (HCC); Hypertension Essential Primary; Emphysema (HCC); Fatigue Discharge Disposition: Home or Self Care from Last 3 Months Allergies No known active allergies Medications Medication Sig Dispensed Refills Start Date End Date Status amLODIPine (NORVASC) 10 mg tabletIndications:Hy pertension Essential Primary Take 1 tablet (10 mg total) by mouth daily. 90 tablet 3 09/21/2022 Active ondansetron (ZOFRAN) 8 mg tablet Take 1 tablet (8 mg total) by mouth every 8 (eight) hours as needed for nausea or vomiting. Take about 45 minutes before each radiation treatment. 10 tablet 09/12/2023 Active Active Problems Problem Noted Date Diagnosed Date Secondary Malignant Neoplasm Lymph Node Intra Ab dominal 08/30/2023 Secondary Malignant Neoplasm Lymph Node Intratho racic [...] Undetermined Significanc e Cervix 08/29/2013 Overview: 07/08/16: [place]: GROVER 1 08/03/16: LEEP: Negative, Ecto: Positive for atypia suggestive of HPV effect Endo: Free of atypia and GROVER 12/21/17: LSIL/HPV Positive Plan: Colposcopy Resolved Problems Problem Noted Date Diagnosed Date Resolved Date Elevated Blood Pressure Without Hypertension 2 06/20/2022 Melanoma Skin 04/01/2010 08/01/2022 Overview: Right arm 1999 Immunizations Name Administration Dates Next Due Influenza [...] Sign Reading Time Taken Comments Blood Pressure 122/52 09/20/2023 3:39 PM CDT Pulse 67 09/20/2023 3:39 PM CDT Temperature 36.2 ??C (97.2 ??F) 09/20/2023 3:39 PM CD T Respiratory Rate 16 09/21/2022 8:18 AM CDT Oxygen Saturation 92% 08/08/2022 10:30 AM ELECTRO MECHANICAL ENGINEER Inhaled Oxygen Concentration - - Weight 49.2 kg (108 lb 7.5 oz) 09/20/2023 3:39 P M CDT Height 159.5 cm (5' 2.8) 09/21/2022 8:18 AM CDT Body Mass Index 19.34 09/21/2022 8:18 AM CDT Plan of Treatment Upcoming Encounters Date Type Department Care Team (Late st Contact Info) Description 11/17/2023 4:00 PM CDT Appointment Department of Radiology in [place], [place] [address] [place] [address] Suhail Burrows M.B.B.S., M.D. [address] [place] [phone] Discharge Disposition: Home or Self Care 12/26/2023 9:30 AM CDT Appointment Department of Radiology in [place], [place] [address] [place] [address] Lakisha Julian M.D. [address] [place] [address] Discharge Disposition: Home or Self Care Procedures Procedure Name Priority Date/Time Associated Diagnosis Comments ARIA COURSE COMPLETE TREATMENT INFORMATION Routine 09/26/2023 3:21 PM CDT [facility] 09/26/2023 3:21 PM CDT ARIA DAILY TREATMENT INFORMATION Routine 09/25/2023 3:20 PM CDT ARIA DAILY TREATMENT INFORMATION Routine 09/22/2023 3:07 PM CDT [facility] Routine 09/21/2023 3:09 PM CDT [facility] IN[facility] Routine 09/20/2023 3:33 PM CDT INITIAL RAD ONC TREATMENT PLANNING CT SIMULATION Routine 09/12/2023 2:30 PM CDT 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) OUTSIDE NM PET Routine 08/24/2023 5:35 PM CDT OUTSIDE MR NEURO Routine 08/24/2023 3:40 PM CDT CORTISOL, FREE AND TOTAL Routine 08/08/2023 11:26 AM ELECTRO MECHANICAL ENGINEER Fatigue HEMOGLOBIN A1C, B Routine 08/08/2023 11:26 AM ELECTRO MECHANICAL ENGINEER Fatigue T4 (THYROXINE), FREE, S Routine 08/08/2023 11:26 AM ELECTRO MECHANICAL ENGINEER Fatigue THYROID-STIMULATING HORMONE-SENSITIVE (S-TSH) Routine 08/08/2023 11:26 AM ELECTRO MECHANICAL ENGINEER Fatigue THYROTROPIN RECEPTOR AB, S Routine 08/08/2023 11:22 AM ELECTRO MECHANICAL ENGINEER Abnormal Thyroid Blood Test THYROPEROXIDASE (TPO) ABS, S Routine 08/08/2023 11:22 AM ELECTRO MECHANICAL ENGINEER Abnormal Thyroid Blood Test BI BREAST SCREENING BILATERAL WITH TOMOSYNTHESIS RAD - Routine (most inpatients and all outpatients) 09/26/2022 3:10 PM CDT Screening Mammogram Breast Cancer LIPID PANEL, S Routine 09/21/2022 10:24 AM CDT Screening Lipid HPV WITH GENOTYPING, PCR, THINPREP Routine 09/21/2022 9:[address] CHEST WITH IV CONTRAST RAD - Routine (most inpatients and all outpatients) 07/05/2022 8:01 AM ELECTRO MECHANICAL ENGINEER Nodule Pulmonary from Last 3 Months or Most Recently Relevant to Health Maintenance Results * Aria Course Complete Treatment Information (09/26/2023 3:21 PM CDT) Course ID [id number] manuel GAMING ARIA Course Start Date 4 10:56 CDT GAMING ARIA Course End Date 4 13:57 CDT GAMING ARIA First Treatment Date 4 15:21 CDT GAMING ARIA Last Treatment Date 4 15:21 CDT GAMING ARIA Treatment Elapsed Days 6 GAMING ARIA Reference Point [id number] Iliac GAMING ARIA Dosage Given to Date cGy 2500 GAMING ARIA Reference Point [id number]_ Abd GAMING ARIA Dosage Given to Date cGy 2500 GAMING ARIA Plan ID [id number] GAMING ARIA Fractions Treated to Date 5 GAMING ARIA Planned Total Fractions 5 GAMING ARIA Prescribed Dose Per Fraction 500 GAMING ARIA Prescription Dose in cGy 2500 GAMING ARIA Plan Primary Reference Point [id number]_ Iliac GAMING ARIA Plan ID [id number] GAMING ARIA Fractions Treated to Date 5 GAMING ARIA Planned Total Fractions 5 GAMING ARIA Prescribed Dose Per Fraction 500 GAMING ARIA Prescription Dose in cGy 2500 GAMING ARIA Plan Primary Reference Point [id number]_ Abd GAMING ARIA 09/26/2023 3:21 PM CDT Provider Not In System RADIATION ONCOLOG Y ORDERABLES GAMING ARIA na * Aria Daily Treatment Information (09/26/2023 3:21 PM CDT) Only the most recent of5 resultswithin the time period is included. Course ID [id number] te GAMING ARIA Course Start Date 4 10:56 CDT GAMING ARIA First Treatment Date 4 15:21 CDT GAMING ARIA Last Treatment Date 4 15:21 CDT GAMING ARIA Treatment Elapsed Days 6 GAMING ARIA Reference Point [id number]_ Iliac GAMING ARIA Dosage Given to Date cGy 2500 GAMING ARIA Session Dosage Given 500 GAMING ARIA Reference Point [id number]_ Abd GAMING ARIA Dosage Given to Date cGy 2500 GAMING ARIA Session Dosage Given 500 GAMING ARIA Plan ID [id number] GAMING [facility]A Fractions Treated to Date 5 [facility] Planned Total Fractions 5 [facility] Prescribed Dose Per Fraction 500 GAMING [facility] Prescription Dose in cGy 2500 GAMING [facility] Plan Primary Reference Point [id number]_ Iliac GAMING ARIA Plan ID [id number] [facility] Fractions Treated to Date 5 [facility] Planned Total Fractions 5 [facility] Prescribed Dose Per Fraction 500 [facility] Prescription Dose in cGy 2500 [facility] Plan Primary Reference Point [id number]_ Abd [facility] 09/26/2023 3:21 PM CDT Provider Not In System RADIATION ONCOLOG Y ORDERABLES Performing Organization Address City/[facility] [[email or web address]] Co de Phone Number AMBERLY RUFFIN na * Initial Rad Onc Treatment Planning CT Simulation (09/12/2023 2:30 PM CDT) Narrative [facility] - 09/12/2023 2:30 PM CDT Mireille Porras, RTT ? 09/12/2023 ??2:48 PM Initial Rad Onc Treatment Planning CT Simulation Performed by: Clemente Feng M.D. Authorized by: Clemente Feng M.D. ?? Clemente Feng M.D. RADIATION ONCOLOGY ORDERABLES Performing Organization Address [facility] [[email or web address]] Co de Phone Number AMBERLY RUFFIN na * PET skull to mid thigh-Outside NM Pet (08/24/2023 5:35 PM CDT) 08/24/2023 5:32 PM CDT Narrative [facility] - 08/24/2023 6:44 PM CDT This order has been created and auto-finalized to support the import of outside images. If available, original interpretation can be found on the Media Tab in Chart Review, in Document Viewer, or as an image in QREADS. If a re-interpretation or overread is required please follow defined workflow. ?? Provider Not In System IMG NM PROCEDURES Performing Organization Address City/[facility] [[email or web address]] Co de Phone Number NANCY NA * MR head/brain wo/w con-Outside MR Neuro (08/24/2023 3:40 PM CDT) Narrative [facility] - 08/25/2023 9:24 AM CDT This order has been created and auto-finalized to support the import of outside images. If available, original interpretation can be found on the Media Tab in Chart Review, in Document Viewer, or as an image in QREADS. If a re-interpretation or overread is required please follow defined workflow. ?? Provider Not In System IMG MRI PROCEDURE S Performing Organization Address City/[facility]/ZIP Co de Phone Number [facility] NA * Cortisol, Free and Total (08/08/2023 11:26 AM ELECTRO MECHANICAL ENGINEER) Cortisol, Free, S 0.777 6:00-10:30 AM Collection 0.121-1.065 mcg/dL mcg/dL 08/12/2023 12:48 AM ELECTRO MECHANICAL ENGINEER [facility] Comment: ----ADDITIONAL INFORMATION---- This test was developed and its performance characteristics determined by [facility] in a manner consistent with CLIA requirements. This test has not been cleared or approved by the U.S. Food and Drug Administration. Cortisol, S, LC-MS/MS 19 mcg/dL 08/12/2023 1:10 AM ELECTRO MECHANICAL ENGINEER [facility] Comment: ----REFERENCE VALUE---- Pediatric ranges not established Adult ranges: a.m.: 5-25 p.m.: 2-14 Blood (Blood, Venous) 08/08/2023 11:26 AM ELECTRO MECHANICAL ENGINEER 08/09/2023 11:24 AM ELECTRO MECHANICAL ENGINEER Tomer Hinson M.D. LAB BLOOD NON ADD-ON Performing Organization Address City/[facility] [[email or web address]] Co de Phone Number [facility] SUPPORT [place] FERRY [address] [place] [address] [facility] [address] [place] [address] [place] [address] * S-TSH (Thyroid-Stimulating Hormone - Sensitive) (08/08/2023 11:26 AM ELECTRO MECHANICAL ENGINEER) TSH, Sensitive 3.0 0.3 - 4.2 mIU/L 08/08/2023 12:16 PM ELECTRO MECHANICAL ENGINEER [facility] Blood (Blood, Venous) 08/08/2023 11:26 AM ELECTRO MECHANICAL ENGINEER 08/08/2023 11:32 AM ELECTRO MECHANICAL ENGINEER Tomer Hinson M.D. LAB BLOOD ADD-ON [facility] [place] [address] [place] [address], [facility]IS [facility]- [facility] & José Antonio [address] [place] [address] * T4 (Thyroxine), Free (08/08/2023 11:26 AM ELECTRO MECHANICAL ENGINEER) T4 (Thyroxine), Free, P 1.1 0.9 - 1.7 ng/dL 08/08/2023 12:16 PM ELECTRO MECHANICAL ENGINEER [facility] Comment: Biotin has been identified by the lithographic camera operator as a potential interfering substance. Higher concentrations of biotin may be found in multivitamins, hair/nail supplements, and workout supplements. If the result does not match clinical observations, repeat testing after patient refrains from the use of supplements for at least 12 hours. Blood (Blood, Venous) 08/08/2023 11:26 AM ELECTRO MECHANICAL ENGINEER 08/08/2023 11:32 AM ELECTRO MECHANICAL ENGINEER Tomer Hinson M.D. LAB BLOOD ADD-ON Performing Organization Address City/[facility]/ZIP Co de Phone Number [facility] [address] [place] [address], [facility] FRANCIS [facility]- [facility] & [address] [address] * Hemoglobin A1c (08/08/2023 11:26 AM ELECTRO MECHANICAL ENGINEER) Hemoglobin A1c, B 5.6 4.2 - 5.6 % 08/08/2023 12:50 PM ELECTRO MECHANICAL ENGINEER [facility]ANCIS Blood (Blood, Venous) 08/08/2023 11:26 AM ELECTRO MECHANICAL ENGINEER 08/08/2023 11:32 AM ELECTRO MECHANICAL ENGINEER Tomer Hinson M.D. LAB BLOOD ADD-ON [facility] [place] [address] [facility] [place] [address], [facility] FRANCIS [place] [facility]- [facility] [place] & José Antonio [address] [facility] [place] [address] * Thyroperoxidase (TPO) Antibodies (08/08/2023 11:22 AM ELECTRO MECHANICAL ENGINEER) Thyroperoxidase Ab, S <15.0 <34.0 IU/mL 08/11/2023 1:11 PM ELECTRO MECHANICAL ENGINEER [facility] Blood (Blood, Venous) 08/08/2023 11:22 AM ELECTRO MECHANICAL ENGINEER 08/10/2023 1:31 PM ELECTRO MECHANICAL ENGINEER Tomer Hinson M.D. LAB BLOOD ADD-ON Performing Organization Address [facility] [[email or web address]] Co de Phone Number [facility] [address] [place], [place] [address] [address] [place] [address] * (ABNORMAL) Thyrotropin Receptor Antibody (08/08/2023 11:22 AM ELECTRO MECHANICAL ENGINEER) Thyrotropin Receptor Ab, S 2.41(H) 0.00 - 1.75 IU/L 08/10/2023 10:05 AM ELECTRO MECHANICAL ENGINEER [facility] Comment: ----ADDITIONAL INFORMATION---- At a decision limit of 1.75 IU/L, this assay has 97% sensitivity and 99% specificity for detection of Graves' disease. In healthy individuals and in patients with thyroid disease without diagnosis of Graves' disease, the upper limit of anti-TSHR values are 1.22 IU/L and 1.58 IU/L, respectively (97.5th percentiles). Blood (Blood, Venous) 08/08/2023 11:22 AM ELECTRO MECHANICAL ENGINEER 08/10/2023 9:17 AM ELECTRO MECHANICAL ENGINEER Tomer Hinson M.D. LAB BLOOD ADD-ON Performing Organization Address City/[facility]/ZIP Co de Phone Number [facility] [address] [place] [address] [facility] [address] [place] [address] * BI Breast Screening Bilateral with Tomosynthesis [...] Suhail Davies M.D. LAB BLO OD ADD-ON [facility] [address] [place] [address], [facility] OWAT [facility] in [place] [address] [place] [address] * (ABNORMAL) HPV with Genotyping, PCR, ThinPrep [...] M.D. LAB JULIUS ROBIOLOGY - GENERAL ORDERABLES [facility] [address] [place] [address], [facility] MKTO [address] [place] [address] * CT Chest with IV Contrast (07/05/2022 8:01 AM ELECTRO MECHANICAL ENGINEER) Anatomical Region Laterality Modality Chest, Thoracic RST LOS, Tho racic ARZ LOS, Thoracic ARZ LOS, Thoracic FLA LOS N/A Computed Tomography 07/05/2022 8:43 AM ELECTRO MECHANICAL ENGINEER Impressions 07/05/2022 8:51 AM ELECTRO MECHANICAL ENGINEER 1. Spiculated left lower lobe mass, highly [...] attention at follow-up. Narrative 07/05/2022 8:51 AM ELECTRO MECHANICAL ENGINEER EXAM: CT CHEST WITH IV CONTRAST COMPARISON: [...] opacity at the left lung apex, posteriorly (3/89) has a flattened appearance on sagittal image [...] follow-up. Suhail Davies M.D. IMG CT PROCEDURES from Last 3 Months or Most Recently Relevant to Health Maintenance Care Teams Smt Operator Relationship Specialty Start Date End Date Suhail Burrows M.B.B.S., M.D. [address] [place] [address] JOSEFA Alvarez [phone] PCP - General Family Medicine 06/09/22
--- OUTSIDE RECORDS SUMMARY | 2023-11-03 14:58 | XMS_ITS | Encounter Summary ---
Author Organization [facility] Address [address] [place] [address] Care Team Providers Care Worker'S Compensation Claims Examiner Name Role Phone Suhail Burrows M.D. Primary Care P dena Reason for Referral * Outpatient (Routine) - Authorized Specialty Diagnoses / Procedures Referred By Contac t Referred To Contact Radiation Oncology Clemente Feng M.D. [address] [place] [phone] Clemente Feng M.D. [address] [place] [phone] Referral ID Status Reason Start Date Expiration Date V isits Requested Visits Authorized [id number] Authorized 10/03/2023 04/03/2025 1 1 Scheduling Instructions Brain MRI at [facility] and body imaging (as ordered by Dr. Julian) prior to visit. Please get images and reports as well as Dr. Julian's recent notes. * MRI/CAT/PET Scan (Routine) - Authorized Specialty Diagnoses / Procedures Referred By Contac t Referred To Contact Radiology Diagnoses Secondary Malignant Neoplasm Brain (HCC) Procedures MR Brain without and with IV Contrast Clemente Feng M.D. [address] [place] [phone] [facility] Referral ID Status Reason Start Date Expiration Date V isits Requested Visits Authorized [id number] Authorized 10/03/2023 10/02/2024 1 1 Encounter Details Date Type Department Care Team (Late st Contact Info) Description 10/03/2023 Orders Only Department of Radiation Oncology in [place], [place] [address] [place] [phone] Edwardo Clarke P.A.-C., M.S. [address] [place] [address] Secondary Malignant Neoplasm Brain (HCC) (Primary Dx) Social History Tobacco Use [...] encounter Miscellaneous Notes * Addendum Note - Edwardo Clarke P.A.-C., M.S. - 10/03/2023 8:25 AM CDTAddended by: EDWARDO CLARKE on: 10/03/2023 08:29 AM Modules accepted: Orders documented in this encounter Plan of Treatment Upcoming Encounters Date Type Department Care Team (Late st Contact Info) Description 11/17/2023 4:00 PM CDT Appointment Department of Radiology in [place], [place] [address] [place] [address] Suhail Burrows M.B.B.S., [place] [address] [place] [address] Discharge Disposition: Home or Self Care 12/26/2023 9:30 AM CDT Appointment Department of Radiology in [place], [place] [address] [place] [address] Lakisha Julian M.D. [address] [place] [phone] Discharge Disposition: Home or Self Care Scheduled Orders Name Type Priority Associated Diagnoses Orde r Schedule MR Brain without and with IV Contrast Imaging RAD - Routine (most inpatients and all outpatients) Secondary Malignant Neoplasm Brain (HCC) Expected: 12/25/2023, Expires: 01/01/2025 Scheduled Referrals Name Type Priority Associated Diagnoses Orde r Schedule Radiation Oncology office visit (clinic) Outpatient Referral Routine Expected: 01/02/2024, Expires: 01/01/2025 documented as of this encounter Visit Diagnoses Diagnosis Secondary Malignant Neoplasm Brain (HCC)- Primary documented in this encounter Care Teams Worker'S Compensation Claims Examiner Relationship Specialty Start Date End Date Suhail Burrows M.B.B.S., M.D. [address] [place] [phone] PCP - General Family Medicine 06/09/22 documented as of this encounter
--- OUTSIDE RECORDS SUMMARY | 2023-11-03 14:58 | XMS_ITS | Encounter Summary ---
Author Organization [facility] Address [address] [place] [address] Care Team Providers Care Real Estate Sales Associate Name Role Phone Suhail Burrows M.D. 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 [address] [place] [address] [facility] Region Referral ID Status Reason Start Date Expiration Date V isits Requested Visits Authorized [id number] Authorized 10/11/2023 10/10/2024 1 1 Encounter Details Date Type Department Care Team (Late st Contact Info) Description 10/11/2023 Orders Only Department of Oncology in [place], [place] [address] [place] [phone] Lakisha Julian M.D. [address] [place] [phone] Malignant Neoplasm Of Lung Lower Lobe Or [...] PM CDT Appointment Department of Radiology in [place], [place] [address] [place] [phone] Suhail Burrows M.B.BHectorSHector, [place] [address] [place] [phone] Discharge Disposition: Home or Self Care 12/26/2023 9:30 AM CDT Appointment Department of Radiology in [place], [place] [address] [address] Lakisha Julian M.D. 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
--- OUTSIDE RECORDS SUMMARY | 2023-11-03 14:58 | XMS_ITS | Encounter Summary ---
Author Organization [facility] Address [address] [place] [address] Care Team Providers Care Mast Maker Name Role Phone Suhail Burrows M.D. 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 [address] [place] [address] [facility] Referral ID Status Reason Start Date Expiration Date Visits Re quested Visits Authorized [id number] Closed 09/18/2023 08/29/2024 5 5 Encounter Details Date Type Department Care Team (Latest Contact Info) Description 09/25/2023 2:50 PM CDT - 09/25/2023 11:59 PM CDT Hospital Encounter Department of Radiation Oncology in [place], [place] [address] [place] [phone] Clemente Feng M.D. [address] [place] [phone] Discharge Disposition: Home or Self Care Social [...] tablet 09/12/2023 documented as of this encounter Plan of Treatment Upcoming Encounters Date Type Department Care Team (Late st Contact Info) Description 11/17/2023 4:00 PM CDT Appointment Department of Radiology in [place], [place] [address] [place] [phone] Suhail Burrows M.B.B.SHector, MNata [address] [place] [address] Discharge Disposition: Home or Self Care 12/26/2023 9:30 AM CDT Appointment Department of Radiology in [place], [place] [address] [place] [phone] Lakisha Julian M.D. [address] [place] [address] Discharge Disposition: Home or Self Care documented as of this encounter Visit Diagnoses Not on filedocumented in this encounter Care Teams Mast Maker Relationship Specialty Start Date End Date Suhail Burrows M.B.B.SHector, MChika. [address] [place] [address] PCP - General Family Medicine 06/09/22 documented as of this encounter
--- OUTSIDE RECORDS SUMMARY | 2023-11-03 14:58 | XMS_ITS | Encounter Summary ---
Author Organization [facility] Address [address] [place] [address] Care Team Providers Care Domestic Cleaner Name Role Phone Suhail Burrows M.D. Primary Care Allan fernandes Reason for Referral * Outpatient (Routine) - Authorized Specialty Diagnoses / Procedures Referred By Yelena t Referred To Contact Diagnoses Screening Mammogram Breast Cancer Procedures BI Breast Screening Bilateral with Tomosynthesis Suhail Burrows M.B.B.S., M.D. [address] [facility] [place] [address] [facility] Referral ID Status Reason Start Date Expiration Date V isits Requested Visits Authorized [id number] Authorized 10/17/2023 10/16/2024 1 1 Encounter Details Date Type Department Care Team (Late st Contact Info) Description 10/17/2023 Orders Only [facility] PCP TH MNT Suhail Burrows M.B.B.S., M.D. [address] [facility] [place] [phone] Screening Mammogram Breast Cancer Social History Tobacco [...] PM CDT Appointment Department of Radiology in [place], [place] [address] [place] [phone] Suhail Burrows M.B.B.S., MNata [address] [place] [phone] Discharge Disposition: Home or Self Care 12/26/2023 9:30 AM CDT Appointment Department of Radiology in [place], [place] [address] [place] [address] Lakisha Julian M.D. [address] [place] [phone] Discharge Disposition: Home or Self Care Scheduled Orders Name Type Priority Associated Diagnoses Order Schedule BI Breast Screening Bilateral with Tomosynthesis Imaging RAD - Routine (most inpatients and all outpatients) Screening Mammogram Breast Cancer Expected: 11/16/2023, Expires: 04/14/2024 documented as of this encounter Visit Diagnoses Diagnosis Screening Mammogram Breast Cancer documented in this encounter Care Teams Domestic Cleaner Relationship Specialty Start Date End Date Suhail Burrows M.B.B.SHector, MChika. [address] [place] [phone] PCP - General Family Medicine 06/09/22 documented as of this encounter
--- OUTSIDE RECORDS SUMMARY | 2023-11-03 14:58 | XMS_ITS ---
Author Organization [facility] Address [address] [place] [address] Care Team Providers Care Propulsion Engineer Name Role Phone Unavailable Unavailable Unavailable Surgery Details Not on file Complications Check Surgery Details section. Procedure Estimated Blood Loss Check Surgery Details section. Procedure Findings Check Surgery Details section. Procedure Specimens Taken Check Surgery Details section.
--- OUTSIDE RECORDS SUMMARY | 2023-11-03 14:58 | XMS_ITS | Encounter Summary ---
Author Organization [facility] Address [address] [place] [address] Care Team Providers Care Learning Specialist Name Role Phone Suhail Burrows M.D. 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 [address] [place] [address] [facility] Referral ID Status Reason Start Date Expiration Date Visits Re quested Visits Authorized [id number] Closed 09/18/2023 08/29/2024 5 5 Encounter Details Date Type Department Care Team (Latest Contact Info) Description 09/26/2023 2:45 PM CDT - 09/26/2023 3:59 PM CDT Hospital Encounter Department of Radiation Oncology in [place], [place] [address] [place] [phone] Clemente Feng M.D. [address] [place] [phone] Discharge Disposition: Home or Self Care Social [...] PM CDT Appointment Department of Radiology in [place], [place] [address] [place] [phone] Suhail Burrows M.B.B.SHector, MNata [address] [place] [address] Discharge Disposition: Home or Self Care 12/26/2023 9:30 AM CDT Appointment Department of Radiology in [place], [place] [address] [place] [phone] Lakisha Julian M.D. [address] [place] [address] Discharge Disposition: Home or Self Care documented as of this encounter Visit Diagnoses Not on filedocumented in this encounter Care Teams Learning Specialist Relationship Specialty Start Date End Date Suhail Burrows M.B.B.SHector, MChika. [address] [place] [phone] PCP - General Family Medicine 06/09/22 documented as of this encounter
--- OUTSIDE RECORDS SUMMARY | 2023-11-03 14:58 | XMS_ITS | Encounter Summary ---
Author Organization [facility] Address [address] [place] [address] Care Team Providers Care Patent Engineer Name Role Phone Suhail Burrows M.D. 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 [address] [place] [address] [facility] Referral ID Status Reason Start Date Expiration Date Visits Re quested Visits Authorized [id number] Closed 09/18/2023 08/29/2024 5 5 Encounter Details Date Type Department Care Team (Latest Contact Info) Description 09/21/2023 2:50 PM CDT - 09/21/2023 11:59 PM CDT Hospital Encounter Department of Radiation Oncology in [place], [place] [address] [place] [phone] Clemente Feng M.D. [address] [place] [phone] Discharge Disposition: Home or Self Care Social [...] PM CDT Appointment Department of Radiology in [place], [place] [address] [place] [phone] Suhail Burrows M.B.B.SHector, MNata [address] [place] [address] Discharge Disposition: Home or Self Care 12/26/2023 9:30 AM CDT Appointment Department of Radiology in [place], [place] [address] [place] [phone] Lakisha Julian M.D. [address] [place] [address] Discharge Disposition: Home or Self Care documented as of this encounter Visit Diagnoses Not on filedocumented in this encounter Care Teams Patent Engineer Relationship Specialty Start Date End Date Suhail Burrows M.B.B.SHector, MChika. [address] [place] [address] PCP - General Family Medicine 06/09/22 documented as of this encounter
--- OUTSIDE RECORDS SUMMARY | 2023-11-03 14:58 | XMS_ITS | Encounter Summary ---
Author Organization [facility] Address [address] [place] [address] Care Team Providers Care Manager Telecom Name Role Phone Suhail Burrows M.D. Primary Care P dena Encounter Details Date Type Department Care Team (Late st Contact Info) Description 09/26/2023 Documentation Department of Radiation Oncology in [place], [place] [address] [place] [phone] Clemente Feng M.D. [address] [place] [address] Social History Tobacco Use Types Packs/Day Years [...] Notes * Radiation Completion Notes - Princess Ruiz, RHectorN. - 09/26/2023 11:59 PM CDT DIAGNOSIS: 1. 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 ([phone]) Treatment Intent: Palliative Concomitant Therapy: She remains on Keytruda every 6 weeks under the care of Dr. Julian. Single Plan Treatment Course: 4xMultiSite Plan ID Fractions Dose / Fraction (cGy) Dose Treated (cGy) Dose Planned (cGy) First Treatment Last Treatment Elapsed Days [id number] 5 / 5 500 2500 2500 09/20/2023 09/26/2023 6 [id number] 5 / 5 500 2500 2500 09/20/2023 09/26/2023 6 Course Summary 09/20/2023 09/26/2023 6 Radiation Modality: Photons CLINICAL SUMMARY Miss Sandrine Deleon completed radiation treatment as planned without interruptions. The course of treatment was tolerated well. The patient experienced zero toxicities of grade during radiationtreatment. TREATMENT RESPONSE: Response to treatment will be determined by post-treatment imaging and/or laboratory work. RECOMMENDED FOLLOW UP: Primary Medical Oncologist. Dr. Feng will see patient back mid-November following a brain MRI that will be ordered at [place]. Patient will continue ongoing follow with Dr. Julian at [facility]. Signed by: Princess Ruiz R.N., 10/06/2023 11:27 AM CDT [facility] [address] [place] [phone] documented in this encounter Plan of Treatment Upcoming Encounters Date Type Department Care Team (Late st Contact Info) Description 11/17/2023 4:00 PM CDT Appointment Department of Radiology in [address] [phone] Suhail Burrows M.B.BHectorSHector, M.Annette. [address] [place] [phone] Discharge Disposition: Home or Self Care 12/26/2023 9:30 AM CDT Appointment Department of Radiology in [place], [place] [address] [place] [phone] Lakisha Julian M.D. 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 [address] [place] [address] [place] [phone] PCP - General Family Medicine 06/09/22 documented as of this encounter
--- OUTSIDE RECORDS SUMMARY | 2023-11-03 14:58 | XMS_ITS ---
Author Organization [facility] Address [address] [place] [address] Care Team Providers Care Diesel Service Technician Name Role Phone Suhail Burrows M.D. 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 Past Plans No past plan information found. Radiation Treatments * Plan Last Treated On Elapsed Days Fractions Treated Prescribed Fraction Dose Prescribed Total Dose [id number] 09/26/2023 6 5 of 5 500 cGy 2,500 cGy [id number] 09/26/2023 6 5 of 5 500 cGy 2,500 cGy [id number] 05/24/2023 6 5 of 5 400 cGy 2,000 cGy [id number] 03/08/2023 0 1 of 1 800 cGy 800 cGy [id number] 09/09/2022 11 10 of 10 300 cGy 3,000 cG y Reference Point Last Treated On Elapsed Days Session Dose Total Dose [id number] 09/26/2023 6 500 cGy 2,500 cGy [id number] 09/26/2023 6 500 cGy 2,500 cGy [id number] 05/24/2023 6 400 cGy 2,000 cGy [id number] 03/08/2023 0 800 cGy 800 cGy [id number] 09/09/2022 11 300 cGy 3,000 cGy Resolved Problems Problem Noted Date Diagnosed Date Resolved Date Elevated Blood Pressure Without Hypertension 2 06/20/2022 Melanoma Skin 04/01/2010 08/01/2022 Overview: Right arm 1999
--- OUTSIDE RECORDS SUMMARY | 2023-11-03 14:58 | XMS_ITS | Encounter Summary ---
Author Organization [facility] Address [address] [place] [address] Care Team Providers Care Fee Clerk Name Role Phone Suhail Burrows M.D. 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 [address] [place] [address] [facility] Referral ID Status Reason Start Date Expiration Date Visits Re quested Visits Authorized [id number] Closed 09/18/2023 08/29/2024 5 5 Encounter Details Date Type Department Care Team (Latest Contact Info) Description 09/22/2023 2:50 PM CDT - 09/22/2023 11:59 PM CDT Hospital Encounter Department of Radiation Oncology in [place], [place] [address] [place] [phone] Clemente Feng M.D. [address] [place] [phone] Discharge Disposition: Home or Self Care Social [...] PM CDT Appointment Department of Radiology in [place], [place] [address] [place] [phone] Suhail Burrows M.B.B.SHector, MNata [address] [place] [address] Discharge Disposition: Home or Self Care 12/26/2023 9:30 AM CDT Appointment Department of Radiology in [place], [place] [address] [place] [phone] Lakisha Julian M.D. [address] [place] [address] Discharge Disposition: Home or Self Care documented as of this encounter Visit Diagnoses Not on filedocumented in this encounter Care Teams Fee Clerk Relationship Specialty Start Date End Date Suhail Burrows M.B.B.SHector, MChika. [address] [place] [address] PCP - General Family Medicine 06/09/22 documented as of this encounter
--- OUTSIDE RECORDS SUMMARY | 2023-11-03 14:58 | XMS_ITS | Clinical Summary ---
Author Organization [facility] Address [address] [place] [address] Care Team Providers Care Mechanical Shop Laborer Name Role Phone Suhail Burrows M.D. Primary Care Allan fernandes Source Comments Patient records contain information from all sites at [facility]. For routine questions regarding patient records, call [phone] during business hours, M-F 8:00 AM - 5:00 PM Central Time. Record requests for emergency care only can be directed to [phone] at any time.[facility] Allergies No known active allergies Medications Medication [...] Undetermined Significanc e Cervix 08/29/2013 Overview: 07/08/16: Dearing: GROVER 1 08/03/16: LEEP: Negative, Ecto: Positive for atypia suggestive of HPV effect Endo: Free of atypia and GROVER 12/21/17: LSIL/HPV Positive Plan: Colposcopy Resolved Problems Problem Noted Date Diagnosed Date Resolved Date Elevated Blood Pressure Without Hypertension 2 06/20/2022 Melanoma Skin 04/01/2010 08/01/2022 Overview: Right arm 2000 Encounters Date Type Department Care Team Description 10/17/2023 Orders Only [facility] Suhail Burrows M.B.B.S., [place] Screening Mammogram Breast Cancer 10/11/2023 Orders Only Department of Oncology in [place], [place] [address] [place] [address] Lakisha Julian M.D. 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) (Primary Dx) 10/03/2023 Orders Only Department of Radiation Oncology in [address] [address] Nilam Clarke P.A.-C., M.S. Secondary Malignant Neoplasm Brain (HCC) (Primary Dx) 09/26/2023 4:00 PM CDT - 09/26/2023 11:59 PM CDT Hospital Encounter Department of Radiation Oncology in [address] [address] Clemente Feng M.D. 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 Discharge Disposition: Home or Self Care 09/26/2023 Documentation Department of Radiation Oncology in [address] [address] Clemente Feng M.D. 09/25/2023 2:50 PM CDT - 09/25/2023 11:59 PM CDT Hospital Encounter Department of Radiation Oncology in [address] [address] Clemente Feng M.D. Discharge Disposition: Home or Self Care 09/22/2023 2:50 PM CDT - 09/22/2023 11:59 PM CDT Hospital Encounter Department of Radiation Oncology in [address] [address] Clemente Feng M.D. Discharge Disposition: Home or Self Care 09/21/2023 2:50 PM CDT - 09/21/2023 11:59 PM CDT Hospital Encounter Department of Radiation Oncology in [address] [address] Clemente Feng M.D. Discharge Disposition: Home or Self Care 09/20/2023 2:46 PM CDT - 09/20/2023 6:02 PM CDT Hospital Encounter Department of Radiation Oncology in [address] [address] Clemente Feng M.D. 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 Discharge Disposition: Home or Self Care 09/12/2023 1:54 PM CDT - 09/12/2023 9:37 PM CDT Hospital Encounter Department of Radiation Oncology in [address] [address] Clemente Feng M.D. 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 Retterath, Chelsey A RLayla. 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) (Primary Dx) 09/12/2023 12:48 PM CDT - 09/12/2023 12:49 PM CDT Hospital Encounter Department of Radiation Oncology in [address] [address] Clemente Feng M.D. 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 Abnormal Thyroid Blood Test (Primary Dx) 08/08/2023 11:18 AM CLAM SHUCKER - 08/08/2023 11:59 PM CLAM SHUCKER Hospital Encounter Department of Laboratory Medicine in [place], [place] [address] [place] [phone] Tomer Hinson M.D. Fatigue; Abnormal Thyroid Blood Test Discharge Disposition: Home or Self Care 08/08/2023 10:30 AM CLAM SHUCKER Comprehensive Visit Department of Endocrinology in [place], [place] [address] [place] [phone] Tomer Hinson M.D. Abnormal Thyroid Blood Test (Primary Dx); 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); Secondary Malignant Neoplasm Lymph Node Intrathoracic (HCC); Hypertension Essential Primary; Emphysema (HCC); Fatigue Discharge Disposition: Home or Self Care 08/08/2023 Clinical Communication Department of Endocrinology in [place], [place] [address] [place] [phone] Tomer Hinson M.D. Results from Last 3 Months Immunizations Name Administration [...] CDT Oxygen Saturation 92% 08/08/2022 10:30 AM CLAM SHUCKER Inhaled Oxygen Concentration - - Weight 49.2 kg (108 lb 7.5 oz) 09/20/2023 3:39 P M CDT Height 159.5 cm (5' 2.8) 09/21/2022 8:18 AM CDT Body Mass Index 19.34 09/21/2022 8:18 AM CDT Plan of Treatment Upcoming Encounters Date Type Department Care Team (Late st Contact Info) Description 11/17/2023 4:00 PM CDT Appointment Department of Radiology in [address] [phone] Suhail Burrows M.B.B.SHector, Ivet [address] [place] [phone] Discharge Disposition: Home or Self Care 12/26/2023 9:30 AM CDT Appointment Department of Radiology in [place], [place] [address], [place] [address] Lakisha Julian M.D. [address] [place] [address] Discharge Disposition: Home or Self Care Health Maintenance Due Date Last Done Comments CT Colonography 1961 Cologuard 1961 HIV Screening 1961 Hepatitis C Screening 1961 Pneumococcal vaccine (0-64 years) (1 of 2 - PCV) 1967 Zoster Vaccines (1 of 2) 1980 DTaP,Tdap,and Td Vaccines (2 - Td or Tdap) 04/01/2020 04/01/2010 COVID-19 Vaccine (4 - season) 2023 06/17/2021, 10/20/2020, 09/29/2020 Influenza Vaccine (#1) 2023 , 03/30/2021, 04/12/2016, Additional history exists Depression Screening (Annual PHQ-2) 06/12/2023 Visit: Chronic Disease, age 18+ 09/22/2023 09/21/2022 Mammogram 09/27/2023 09/26/2022, 0707/2017, 04/18/2016, Additional history exists Office Visit for Blood Pressure Check / Re-check 08/08/2024 08/08/2023 Colonoscopy 05/20/2026 05/20/2016 Colorectal Cancer Surveillance 05/20/2026 Fasting Glucose for Diabetes Screening 08/08/2026 08/08/2023, 08/18/2022, 07/04/2022 Cervical Cancer Screening 09/22/2027 09/21/2022, 05/2023 Lipid (Cholesterol) Screening 09/22/2027 09/21/2022 Lung Cancer Screening Discontinued 07/05/2022 HPV Vaccines Aged Out No longer eligi ble based on patient's age to complete this topic Procedures Procedure Name Priority Date/Time Associated Diagnosis Comments ARIA COURSE COMPLETE TREATMENT INFORMATION Routine 09/26/2023 3:21 PM CDT ARIA DAILY TREATMENT INFORMATION Routine 09/26/2023 3:21 PM CDT ARIA DAILY TREATMENT INFORMATION Routine 09/25/2023 3:20 PM CDT ARIA DAILY TREATMENT INFORMATION Routine 09/22/2023 3:07 PM CDT ARIA DAILY TREATMENT INFORMATION Routine 09/21/2023 3:09 PM CDT ARIA DAILY TREATMENT INFORMATION Routine 09/20/2023 3:33 PM CDT INITIAL RAD ONC TREATMENT PLANNING CT SIMULATION Routine 09/12/2023 2:30 PM CDT 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) OUTSIDE NM PET Routine 08/24/2023 5:35 PM CDT OUTSIDE MR NEURO Routine 08/24/2023 3:40 PM CDT CORTISOL, FREE AND TOTAL Routine 08/08/2023 11:26 AM CLAM SHUCKER Fatigue HEMOGLOBIN A1C, B Routine 08/08/2023 11:26 AM CLAM SHUCKER Fatigue T4 (THYROXINE), FREE, S Routine 08/08/2023 11:26 AM CLAM SHUCKER Fatigue THYROID-STIMULATING HORMONE-SENSITIVE (S-TSH) Routine 08/08/2023 11:26 AM CLAM SHUCKER Fatigue THYROTROPIN RECEPTOR AB, S Routine 08/08/2023 11:22 AM CLAM SHUCKER Abnormal Thyroid Blood Test THYROPEROXIDASE (TPO) ABS, S Routine 08/08/2023 11:22 AM CLAM SHUCKER Abnormal Thyroid Blood Test BI BREAST SCREENING BILATERAL WITH TOMOSYNTHESIS RAD - Routine (most inpatients and all outpatients) 09/26/2022 3:10 PM CDT Screening Mammogram Breast Cancer LIPID PANEL, S Routine 09/21/2022 10:24 AM CDT Screening Lipid HPV WITH GENOTYPING, PCR, THINPREP Routine 09/21/2022 9:[address] CHEST WITH IV CONTRAST RAD - Routine (most inpatients and all outpatients) 07/05/2022 8:01 AM CLAM SHUCKER Nodule Pulmonary from Last 3 Months or Most Recently Relevant to Health Maintenance Results * Aria Course Complete Treatment Information (09/26/2023 3:21 PM CDT) Course ID [id number] te PURDON ARIA Course Start Date 4 10:56 CDT PURDON ARIA Course End Date 4 13:57 CDT PURDON ARIA First Treatment Date 4 15:21 CDT [facility] Last Treatment Date 4 15:21 CDT [facility] Treatment Elapsed Days 6 [facility] Reference Point [id number] Iliac GAMING ARIA Dosage Given to Date cGy 2500 GAMING ARIA Reference Point [id number]_ Abd GAMING ARIA Dosage Given to Date cGy 2500 GAMING ARIA Plan ID [id number] GAMING ARIA Fractions Treated to Date 5 GAMING ARIA Planned Total Fractions 5 GAM[facility]A Prescribed Dose Per Fraction 500 GAMING ARIA Prescription Dose in cGy 2500 GAMING ARIA Plan Primary Reference Point [id number]_ Iliac GAMING ARIA Plan ID [id number] GAMING ARIA Fractions Treated to Date 5 GAMING ARIA Planned Total Fractions 5 GAMING ARIA Prescribed Dose Per Fraction 500 GAMING ARIA Prescription Dose in cGy 2500 GAMING ARIA Plan Primary Reference Point [id number]_ Abd GAMING ARIA 09/26/2023 3:21 PM CDT Provider Not In System RADIATION ONCOLOG Y ORDERABLES GAMING MILIA na * Aria Daily Treatment Information (09/26/2023 3:21 PM CDT) Only the most recent of5 resultswithin the time period is included. Course ID [id number] te GAMING ARIA Course Start Date 4 10:56 CDT GAMING ARIA First Treatment Date 4 15:21 CDT GAMING ARIA Last Treatment Date 4 15:21 CDT GAMING ARIA Treatment Elapsed Days 6 [facility]A Reference Point [id number]_ Iliac GAMING ARIA Dosage Given to Date cGy 2500 GAMING ARIA Session Dosage Given 500 GAMING ARIA Reference Point [id number]_ Abd GAMING ARIA Dosage Given to Date cGy 2500 GAMING ARIA Session Dosage Given 500 GAMING ARIA Plan ID [id number] GAMING ARIA Fractions Treated to Date 5 GAMING ARIA Planned Total Fractions 5 GAMING ARIA Prescribed Dose Per Fraction 500 GAMING ARIA Prescription Dose in cGy 2500 GAMING ARIA Plan Primary Reference Point [id number]_ Iliac GAMING ARIA Plan ID [id number] GAMING ARIA Fractions Treated to Date 5 GAMING ARIA Planned Total Fractions 5 GAMING ARIA Prescribed Dose Per Fraction 500 GAMING ARIA Prescription Dose in cGy 2500 GAMING ARIA Plan Primary Reference Point [id number]_ Abd GAMING ARIA 09/26/2023 3:21 PM CDT Provider Not In System RADIATION ONCOLOG Y ORDERABLES Performing Organization Address [facility] de Phone Number AMBERLY deleon * Initial Rad Onc Treatment Planning CT Simulation (09/12/2023 2:30 PM CDT) Narrative AMBERLY RUFFIN - 09/12/2023 2:30 PM CDT Mireille Porras, RTT ? 09/12/2023 ??2:48 PM Initial Rad Onc Treatment Planning CT Simulation Performed by: Clemente Feng M.D. Authorized by: Clemente Feng M.D. ?? Clemente Feng M.D. RADIATION ONCOLOGY ORDERABLES Performing Organization Address [facility] Phone Number AMBERLY deleon * PET skull to mid thigh-Outside NM Pet (08/24/2023 5:35 PM CDT) 08/24/2023 5:32 PM CDT Narrative IIPR - 08/24/2023 6:44 PM CDT This order [...] System IMG NM PROCEDURES Performing Organization Address [facility] Phone Number [facility] NA * MR head/brain wo/w con-Outside MR Neuro (08/24/2023 3:40 PM CDT) Narrative IIPR - 08/25/2023 9:24 AM CDT This order has been created and auto-finalized to support the import of outside images. If available, original interpretation can be found on the Media Tab in Chart Review, in Document Viewer, or as an image in QREADS. If a re-interpretation or overread is required please follow defined workflow. ?? Provider Not In System IMG MRI PROCEDURE S IIMS NA * Cortisol, Free and Total (08/08/2023 11:26 AM CLAM SHUCKER) Cortisol, Free, S 0.777 6:00-10:30 AM Collection 0.121-1.065 mcg/dL mcg/dL 08/12/2023 12:48 AM CLAM SHUCKER [facility] Comment: ----ADDITIONAL INFORMATION---- This test was developed and its performance characteristics determined by [facility] in a manner consistent with CLIA requirements. This test has not been cleared or approved by the U.S. Food and Drug Administration. Cortisol, S, LC-MS/MS 19 mcg/dL 08/12/2023 1:10 AM CLAM SHUCKER [facility] Comment: ----REFERENCE VALUE---- Pediatric ranges not established Adult ranges: a.m.: 5-25 p.m.: 2-14 Blood (Blood, Venous) 08/08/2023 11:26 AM CLAM SHUCKER 08/09/2023 11:24 AM CLAM SHUCKER Tomer Hinson M.D. LAB BLOOD NON ADD-ON Performing Organization Address [facility]/ZIP Co de Phone Number [facility] SUPPORT [employer] [address] [place] [address] [facility] [address] [place] [address] [place] [address] * S-TSH (Thyroid-Stimulating Hormone - Sensitive) (08/08/2023 11:26 AM CLAM SHUCKER) TSH, Sensitive 3.0 0.3 - 4.2 mIU/L 08/08/2023 12:16 PM CLAM SHUCKER FRANCIS Blood (Blood, Venous) 08/08/2023 11:26 AM CLAM SHUCKER 08/08/2023 11:32 AM CLAM SHUCKER Tomer Hinson M.D. LAB BLOOD ADD-ON [facility] [place] [place] [address] [facility] [place] [address], [facility] FRANCIS [place] [facility]- [facility] & [place] [address] [place] [address] * T4 (Thyroxine), Free (08/08/2023 11:26 AM CLAM SHUCKER) T4 (Thyroxine), Free, P 1.1 0.9 - 1.7 ng/dL 08/08/2023 12:16 PM CLAM SHUCKER FRANCIS Comment: Biotin has been identified by the experimental machinist as a potential interfering substance. Higher concentrations of biotin may be found in multivitamins, hair/nail supplements, and workout supplements. If the result does not match clinical observations, repeat testing after patient refrains from the use of supplements for at least 12 hours. Blood (Blood, Venous) 08/08/2023 11:26 AM CLAM SHUCKER 08/08/2023 11:32 AM CLAM SHUCKER Tomer Hinson M.D. LAB BLOOD ADD-ON Performing Organization Address [facility]/ZIP Co de Phone Number [facility] [address] [place] [address], [place] FRANCIS [place] [facility]- [facility] & [place] [address] [place] [address] * Hemoglobin A1c (08/08/2023 11:26 AM CLAM SHUCKER) Pathologist [facility] Hemoglobin A1c, B 5.6 4.2 - 5.6 % 08/08/2023 12:50 PM CLAM SHUCKER FRANCIS Blood (Blood, Venous) 08/08/2023 11:26 AM CLAM SHUCKER 08/08/2023 11:32 AM CLAM SHUCKER Tomer Hinson M.D. LAB BLOOD ADD-ON [facility] [place] [address] [place] [address], [place] FRANCIS [place] [facility]- [facility] & [place] [address] [place] [address] * Thyroperoxidase (TPO) Antibodies (08/08/2023 11:22 AM CLAM SHUCKER) Thyroperoxidase Ab, S <15.0 <34.0 IU/mL 08/11/2023 1:11 PM CLAM SHUCKER DT Blood (Blood, Venous) 08/08/2023 11:22 AM CLAM SHUCKER 08/10/2023 1:31 PM CLAM SHUCKER Tomer Hinson M.D. LAB BLOOD ADD-ON Performing Organization Address [facility]/ZIP Co de Phone Number [facility] [address] [place] [address], [facility] [address] [place] [address] * (ABNORMAL) Thyrotropin Receptor Antibody (08/08/2023 11:22 AM CLAM SHUCKER) Thyrotropin Receptor Ab, S 2.41(H) 0.00 - 1.75 IU/L 08/10/2023 10:05 AM [facility] Comment: ----ADDITIONAL INFORMATION---- At a decision limit of 1.75 IU/L, this assay has 97% sensitivity and 99% specificity for detection of Graves' disease. In healthy individuals and in patients with thyroid disease without diagnosis of Graves' disease, the upper limit of anti-TSHR values are 1.22 IU/L and 1.58 IU/L, respectively (97.5th percentiles). Blood (Blood, Venous) 08/08/2023 11:22 AM CLAM SHUCKER 08/10/2023 9:17 AM CLAM SHUCKER Tomer Hinson M.D. LAB BLOOD ADD-ON [facility] [address] [place] [address] [facility] [address] [place] [address] * BI Breast Screening Bilateral with Tomosynthesis [...] Suhail Davies M.D. LAB BLO OD ADD-ON [facility] [address] [place] [address], [facility] OWAT [facility] in [place] [address] [place] [address] * (ABNORMAL) HPV with Genotyping, PCR, ThinPrep [...] M.D. LAB JULIUS ROBIOLOGY - GENERAL ORDERABLES [facility] [address] [place] [address], [facility] [address] [facility] [address] [place] [address] * CT Chest with IV Contrast (07/05/2022 8:01 AM CLAM SHUCKER) Anatomical Region Laterality Modality Chest, Thoracic RST LOS, Tho racic ARZ LOS, Thoracic ARZ LOS, Thoracic FLA LOS N/A Computed Tomography 07/05/2022 8:43 AM CLAM SHUCKER Impressions 07/05/2022 8:51 AM CLAM SHUCKER 1. Spiculated left lower lobe mass, highly [...] attention at follow-up. Narrative 07/05/2022 8:51 AM CLAM SHUCKER EXAM: CT CHEST WITH IV CONTRAST COMPARISON: [...] Recently Relevant to Health Maintenance Care Teams Mechanical Shop Laborer Relationship Specialty Start Date End Date Suhail Burrows M.B.BIvet [place] [address] [place] [address] [place] [address] PCP - General Family Medicine 06/09/22
--- OUTSIDE RECORDS SUMMARY | 2023-11-03 14:58 | XMS_ITS | Encounter Summary ---
Author Organization [facility] Address [address] [place] [address] Care Team Providers Care Sales Team Manager Name Role Phone Suhail Burrows M.D. 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 [address] [place] [address] [facility] Region Referral ID Status Reason Start Date Expiration Date V isits Requested Visits Authorized [id number] Authorized 08/30/2023 08/29/2024 10 10 Encounter Details Date Type Department Care Team (Latest Contact Info) Description 09/20/2023 2:46 PM CDT - 09/20/2023 6:02 PM CDT Hospital Encounter Department of Radiation Oncology in [place], [place] [address] [place] [address] Clemente Feng M.D. 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 90 tablet 3 09/21/2022 ondansetron (ZOFRAN) 8 mg tablet Take 1 tablet (8 mg total) by mouth every 8 (eight) hours as needed for nausea or vomiting. Take about 45 minutes before each radiation treatment. 10 tablet 09/12/2023 documented as of this encounter Progress Notes * Clemente Feng M.D. - 09/20/2023 4:00 PM CDT SUBJECTIVE CHIEF COMPLAINT/REASON FOR VISIT Evaluation for side effects while receiving radiation treatment for 1. 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 ([id number]) HISTORY OF PRESENT ILLNESS Miss Sandrine Deleon is a 63 y.o. 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 Treatment Course: 4xMultiSite Plan ID Fractions Dose / Fraction (cGy) Dose Treated (cGy) Dose Planned (cGy) First Treatment Last Treatment Elapsed Days [id number] 1 / 5 [phone] 09/20/2023 09/20/2023 0 [id number] 1 / 5 [phone] 09/20/2023 09/20/2023 0 Course Summary 09/20/2023 09/20/2023 0 The patient was seen and examined today with Dr. Feng. The patient reports to be feeling well overall. She is taking Zofran pre- treatment. She denies any new issues or concerns at this time. PATIENT REPORTED SYMPTOM SCREEN: FATIGUE (Scale: 0 = no fatigue; 10 = worst fatigue you can imagine): 0 PAIN (Scale: 0 = no pain; 10 = worst pain you can imagine): 2-stiff arms OVERALL QUALITY OF LIFE (Scale: 0 = as bad as can be; 10 = as good as can be): 9 OBJECTIVE BP (!) 122/52 (BP Location: Right arm, Patient Position: Sitting, Cuff Size: Regular) Pulse 67 Temp 36.2 ??C (Temporal) Wt 49.2 kg BMI 19.34 kg/m?? PHYSICAL EXAMINATION General: Alert and oriented, in no apparent distress. ASSESSMENT / PLAN [...] on May 18, 2023; completed May 24, 2023 #8 PET/CT progression in gastrohepatic and peripancreatic lymph nodes as well as S1 on August 24, 2023 #9 Possible new lesion in the right midbrain cerebral peduncle on MRI on August 24, 2023 #10 Radiotherapy to gastrohepatic/peripancreatic lymph nodes and a lesion in the left S1 region initiated on September 20, 2023; anticipated completion on September 26, 2023 The patient is tolerating radiation treatment well overall. She will continue with radiation treatment as planned. We will see patient in last management visit next wee. She can contact our care teamwith any questions or concerns. Signed by: Ingrid Feng R.N. 09/20/2023 3:57 PM CDT I saw and evaluated the patient and participated in the hansen portions of the service. I reviewed thedocumentation of Ingrid Feng R.N. and agree with the findings and plan. The patient appears well on exam. She is tolerating treatment well. She will continue with treatment as planned. Signed by: Clemente Feng M.D. 09/20/2023 6:02 PM CDT [facility] [address] [place] [address] documented in this encounter Plan of Treatment Upcoming Encounters Date Type Department Care Team (Late st Contact Info) Description 11/17/2023 4:00 PM CDT Appointment Department of Radiology in [address] [address] Suhail Burrows M.B.B.S., [place] [address] [place] [phone] Discharge Disposition: Home or Self Care 12/26/2023 9:30 AM CDT Appointment Department of Radiology in [place], [place] [address] [place] [address] Lakisha Julian M.D. 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 [address] [place] [phone] PCP - General Family Medicine 06/09/22 documented as of this encounter
--- OUTSIDE RECORDS SUMMARY | 2023-11-03 14:59 | XMS_ITS | Encounter Summary ---
Author Organization [facility] Address [address] [place] [address] Care Team Providers Care Barrel Cooper Name Role Phone Suhail Burrows M.D. Primary Care Allan fernandes Reason for Visit * Appointment Request (Routine) - Closed Specialty Diagnoses / Procedures Referred By Contac t Referred To Contact Radiation Oncology Diagnoses Malignant Neoplasm Of Unspecified Part Of Lung Laterality Unknown Adenocarcinoma (HCC) Lakisha Julian M.D. [address] [place] [address] Referral ID Status Reason Start Date Expiration Date Visits Re quested Visits Authorized [id number] Closed 08/30/2023 08/29/2024 1 1 Encounter Details Date Type Department Care Team (Latest Contact Info) Description 09/12/2023 12:48 PM CDT - 09/12/2023 12:49 PM CDT Hospital Encounter Department of Radiation Oncology in [place], [place] [address] [place] [phone] Clemente Feng M.D. [address] [place] [address] Secondary Malignant Neoplasm Lymph Node Intra Abdominal [...] Sign Reading Time Taken Comments Blood Pressure 124/51 09/12/2023 12:58 PM CDT Pulse 59 09/12/2023 12:58 PM CDT Temperature 36.5 ??C (97.7 ??F) 09/12/2023 1 2:58 PM CDT Respiratory Rate - - Oxygen Saturation - - Inhaled Oxygen Concentration - - Weight 48.9 kg (107 lb 12.9 oz) 024 12:58 PM CDT Height - - Body Mass Index 19.22 09/21/2022 8:18 AM CDT documented in this encounter Medications at Time of Discharge Medication Sig Dispensed Refills Start Date End Date amLODIPine (NORVASC) 10 mg tabletIndications:Hyperte nsion Essential Primary Take 1 tablet (10 mg total) by mouth daily. 90 tablet 3 09/21/2022 documented as of this encounter Consult Notes * Torri Erickson M.D. - 09/12/2023 1:00 PM CDT RADIATION ONCOLOGY CONSULTATION Supervising Veterinary Bacteriologist: Dr. Clemente Feng REQUESTING PROVIDER Lakisha Julian M.D. VISIT DIAGNOSIS and STAGING Metastatic lung adenocarcinoma, metastatic at presentation Metastases to liver, bones, brain S/p RT to the brain, humerus, and chest Currently on pembrolizumab SUBJECTIVE HISTORY OF PRESENT ILLNESS Miss Deleon is 63 y.o. and resides in [place], [place]. She presents today to discuss radiotherapy for disease progression in the abdomen and the sacrum. Oncology History Overview Note Patient as current [...] images and another indeterminate in the perifissural RUL. -Moderate to advanced emphysema. -Bilateral indeterminate adrenal nodules. 07/28/2022 Critical Imaging MR Brain: numerous enhancing foci throughout the brain compatible with metastases in the setting ofthe identified lung mass. 08/05/2022 Critical Imaging PET-CT: 1. Overall findings [...] for malignancy. Adenocarcinoma; consistent with lung primary. 80 % tumor cells are positive for PD-L1 (membranous positivity). 08/29/2022 - 09/09/2022 Radiation Therapy Radiation Therapy Treatment Details (Noted on 08/19/2022) Site: Bilateral Brain Technique: No technique specified Goal: Palliative Planned Treatment Start Date: 08/29/2022 Dose: 3,000 cGy in 10 fractions 09/29/2022 - Chemotherapy Pembrolizumab monotherapy through Dr. Julian. 11/22/2022 Critical Imaging Brain MRI IMPRESSION: 1. Findings compatible with a positive treatment response. Decreased size of most of the previouslyseen metastatic lesions, with resolution of a few of the smaller lesions. No new intracranial metastases. 2. No acute ischemia or other acute intracranial pathology. 12/27/2022 Critical Imaging FDG PET-CT IMPRESSION: 1. [...] and bilateral acetabula. No new FDG bone lesion. 02/17/2023 Critical Imaging MRI Brain IMPRESSION: -No significant interval change in the 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 Less conspicuous enhancinglesions in bilateral posterior frontal, posterior temporal and occipital lobes allowing for differences in technique. No evidence of new enhancing brain lesions. 03/08/2023 - 03/08/2023 Radiation Therapy Single fraction radiotherapy to the right humerus to a total dose of 800 cGy. 05/05/2023 Critical Imaging PET-CT CONCLUSION: 1. Stable 12 mm size with interval FDG avidity right subcarinal/hilar lymph node, SUV max 10.15, previously 6.8 on 02/14/2023. 2. Relative stable size and metabolic activity right upper/left lower lobe malignancy, left hilar adenopathy and multiple sclerotic osseous lesions, including right humeral head come bilateral ribs, thoracic/lumbar vertebrae, and bony pelvis. No new lesions are identified. 05/18/2023 - 05/24/2023 Radiation Therapy 2000 cGy in 5 fractions Radiation Therapy Treatment Details (05/18/2023 - 05/24/2023) Site: Right Lung Technique: IMRT Goal: Palliative Planned Treatment Start Date: 05/18/2023 06/26/2023 Critical Imaging MRI brain Impression: 1. Interval significant improvement in previously noted numerous metastatic foci throughout the brain parenchyma, with notable resolution of a majority of the lesions. There were a few residual lesions. 2. Mild to moderate chronic ischemic microvascular disease. 08/24/2023 Critical Imaging MRI brain demonstrated continued interval decrease in size of metastatic lesions of the left coronaradiata and left middle cerebellar peduncle. Remaining metastatic lesions have resolved. Overall, findings are consistent with continued response to treatment. However, new tiny 2 mm enhancing nodulealong the ventral margin of the right midbrain cerebral peduncle may represent new metastasis. No acute intracranial abnormality. Normal brain parenchymal morphology. PET-CT scan demonstrated stable appearance of left hilar, subcarinal adenopathy, left lower lobe and right upper lobe lung lesions. Stable appearance of multiple sclerotic osseous lesions. Mildly increasing size of gastrohepatic/peripancreatic lymphadenopathy, measuring up to 11 mm diameter with increasing prominent FDG avidity, SUV max 17.36. Most recent imaging shows a new 2 mm nodule in the brain, along the ventral margin of the right midbrain cerebral peduncle, which may represent a new metastasis. Additionally, PET/CT showed mildly increasing size of gastrohepatic/peripancreatic lymph nodes, and an area that is more PET-avid in the left-sided sacrum. Today: Miss Deleon is feeling very well. She has had arthritis-type pain in her shoulders for the last few weeks, and she reports that her medical team thinks this may be a side-effect of pembrolizumab. Advil helps relieve the pain. 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 The patient's last pembrolizumab was about 2-3 weeks ago, and her next infusion is October 10. She is currently on an every 6 week infusion schedule. Quality of life: 02/19 Pain: 10/19 Fatigue: 06/21 REVIEW OF SYSTEMS Review of systems as noted in HPI. Medications, Allergies, Pertinent Past Medical History, Past Surgical History, Social History, and Family History were reviewed. Pertinent findings are as follows: - Former smoker, quit in 2022 - Supportive partner Josef accompanies her today - Enjoys quilting PRIOR RADIOTHERAPY: - Hippocampal-avoidance WBRT: August 2022 - Right proximal humerus single fraction 8 Gy in 1: February 2023 - Right hilar and subcarinal lymph nodes: 20 Gy in 5: May 2023 OTHER PREVIOUS CANCER TREATMENT: Pembrolizumab PACEMAKER: No OBJECTIVE BP (!) 124/51 (BP Location: Right arm, Patient Position: Sitting, Cuff Size: Regular) Pulse (!) 59 Temp 36.5 ??C (Temporal) Wt 48.9 kg BMI 19.22 kg/m?? PHYSICAL EXAMINATION ECOG score: 0 - Fully active, able to carry on all pre-disease performance without restriction General: Well-appearing, in no acute distress. Head: Normocephalic, atraumatic Lungs: Normal work of breathing on room air. Skin: Warm, dry Neuro: Alert and oriented. Psychiatric: Euthymic mood and appropriate affect. Extremities: No significant edema RECENT IMAGING, independently reviewed: 24 August 2023: PET/CT: PET-CT scan demonstrated stable appearance of left hilar, subcarinal adenopathy, left lower lobe and right upper lobe lung lesions. Stable appearance of multiple sclerotic osseous lesions. Mildly increasing size of gastrohepatic/peripancreatic lymphadenopathy, measuring up to11 mm diameter with increasing prominent FDG avidity, SUV max 17.36. 24 August 2023: MRI Brain: MRI brain demonstrated continued interval decrease in size of metastatic lesions of the left ugalde radiata and left middle cerebellar peduncle. Remaining metastatic lesionshave resolved. Overall, findings are consistent with continued response to treatment. However, new tiny 2 mm enhancing nodule along the ventral margin of the right midbrain cerebral peduncle may represent new metastasis. No acute intracranial abnormality. Normal brain parenchymal morphology. ASSESSMENT / PLAN #Metastatic lung adenocarcinoma S/p three radiation courses Currently on pembrolizumab with slow progression Miss Deleon is a 63 y.o. patient with metastatic lung adenocarcinoma, presenting today accompanied by her boyfriend Josef to discuss radiation therapy. We reviewed the pertinent clinical and pathologic features of the disease, including the fact that pembrolizumab has been working moderately well, but not controlling all sites of disease. The patient's quality of life is very good and she is still doing everything that she enjoys. In this setting, we recommend going forward with palliative radiation in order to preserve her quality of life, slow disease progression, and keep her on pembrolizumab. We discussed the logistics of radiation simulation, planning, and daily treatment. The patient is familiar with these procedures given her previous radiation treatments. For simulation, we plan to obtain a 4DCT scan to assess motion of the upper abdominal lymph nodes. We also reviewed the acute toxicities associated with radiation treatment including, but not limited to fatigue, radiation skin changes, pain flare, nausea, and decreased appetite. The risk of late toxicities and expected long-term oncologic outcomes were also discussed, including a slightly increased risk for bowel obstruction,weakened bone in the pelvis, and <06/999 risk of secondary malignancy at 10 years post-treatment. We will send a prescription for Zofran to mitigate the risk for nausea Miss Deleon asked several excellent questions which we discussed. She expressed understanding ofthe objective of radiation therapy, the potential acute and chronic toxicities, and the radiation planning and delivery process. Miss Deleon expressed her wish to go forward with simulation scan today. The patient will meet the rest of our radiation oncology team as she progresses through simulation, treatments, and weekly management visits. We signed a consent form in the room today. Patient seen for the service of Dr. Clemente Feng. PLAN - Simulation scan today - Plan to treat the upper abdominal lymph nodes and sacral lesion with 5 fractions of radiation approximately 2500 cGy - Tentative start date September 19 (Monday) - Zofran sent to the pharmacy Signed: Torri Erickson MD Resident Physician Department of Radiation Oncology Please don't hesitate to contact me with questions or discussion! Text Pager: [phone] Associated attestation - Clemente Feng M.D. - 09/12/2023 5:58 PM CDT I saw and evaluated the patient and participated in the hansen portions of the service. I reviewed thedocumentation of Torri Erickson M.D. and agree with the findings and plan. Miss Sandrine Deleon is a 63 y.o. female with Stage IVB (cT2a, cN2, cM1c) metastatic adenocarcinoma of the left lower lobe of the lung with metastases to the liver, bone, and brain who is well known to us from completing radiotherapy to right subcarinal/hilar lymph nodes to a dose of 20 Gy in 5 fractions on May 24, 2023. She remains on Keytruda every 6 weeks under the care of Dr. Julian. She had repeat imaging on August 24, 2023 consisting of a brain MRI that showed decrease in size ofmultiple lesions including those involving the left ugalde radiata in the left middle cerebellar peduncle and resolution of other lesions. There was a 2 mm area of enhancement along the ventral margin of the right midbrain cerebral peduncle that was possibly consistent with new metastasis. A PET/CTscan on August 24, 2023 revealed improvement in the areas treated in the right lung and hilar area, stable uptake in the left hilum, subcarina, left lower lobe, and right upper lobe. There was increased size in gastrohepatic/peripancreatic lymph nodes measuring up to 1.1 cm with increasing avidity up to an SUV max of 17.36. There is also stable to increasing uptake on my review in a lesion in the left S1 region. We are asked by Dr. Julian to evaluate the patient for treatment to the areas of increasing uptake in the gastrohepatic/peripancreatic lymph nodes and at S1. The patient appears well on exam. She tolerated her treatment to a right lung without apparent sideeffects. She denies any pain including in the S1 area. Her ECOG performance status is 0. I reviewed her PET/CT imaging with her and her boyfriend Josef. I reviewed her MRI of the brain, butdid not go over these images with the patient. #1 Stage IVB (cT2a, cN2, cM1c) metastatic [...] peduncle on MRI on August 24, 2023 I had a detailed discussion with the patient and her friend Josef regarding the risks, benefits, andalternatives of radiotherapy in this setting. I recommend palliative radiotherapy to the hypermetabolic gastrohepatic/peripancreatic lymph nodes likely to a dose of 20 Gy in 5 fractions. I also recommend treatment the lesion in the left sacrum to a dose of 20 Gy in 5 fractions. Reviewed the logistics as well as the acute and chronic side effects of treatment in detail. For a complete listing of these, please see Dr. Erickson's note. The patient will take prophylactic ondansetron as well as ibuprofen in advance of each were treatments. We discussed fasting for 2 hours priorto treatment. After this discussion, the patient's questions and those of her boyfriend were answered to their verbalized satisfaction. She stated that she would like to proceed with treatment and signed the consent form. She will undergo CT simulation today. We will endeavor to begin treatment on Wednesday, September 20, 2023. She verbalized satisfaction with this plan. My thanks to Drs. Julian and Mark for the opportunity to participate in this patient's care. I have spent 25 minutes caring for this patient including both smnm-pn-iyow and pxb-[id number]-[id number]-face time. Signed by: Clemente Feng M.D. 09/12/23 5:58 PM CDT [facility] [place] documented in this encounter Miscellaneous Notes * Addendum Note - Alejandro Marie - 09/12/2023 12:49 PM CDTEncounter addended by: Alejandro Marie on: 09/13/2023 7:54 AM Actions taken: Letter saved documented in this encounter Plan of Treatment Upcoming Encounters Date Type Department Care Team (Late st Contact Info) Description 11/17/2023 4:00 PM CDT Appointment Department of Radiology in [address] [phone] Suhail Burrows M.B.B.S., M.D. [address] [place] [phone] Discharge Disposition: Home or Self Care 12/26/2023 9:30 AM CDT Appointment Department of Radiology in [place], [place] [address] [place] [address] Lakisha Julian M.D. 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 [address] [place] [address] JOSEFA Alvarez [phone] PCP - General Family Medicine 06/09/22 documented as of this encounter
--- OUTSIDE RECORDS SUMMARY | 2023-11-03 14:59 | XMS_ITS | Encounter Summary ---
Author Organization [facility] Address [address] [place] [address] Care Team Providers Care Ticket Printer And Tagger Name Role Phone Suhail Burrows M.D. 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 [address] [place] [address] [facility] Referral ID Status Reason Start Date Expiration Date Visits Re quested Visits Authorized [id number] Closed 09/18/2023 08/29/2024 5 5 Encounter Details Date Type Department Care Team (Latest Contact Info) Description 09/20/2023 2:46 PM CDT - 09/20/2023 11:59 PM CDT Hospital Encounter Department of Radiation Oncology in [place], [place] [address] [place] [phone] Clemente Feng M.D. [address] [place] [phone] Discharge Disposition: Home or Self Care Social [...] PM CDT Appointment Department of Radiology in [place], [place] [address] [place] [phone] Suhail Burrows M.B.B.SHector, MNata [address] [place] [phone] Discharge Disposition: Home or Self Care 12/26/2023 9:30 AM CDT Appointment Department of Radiology in [place], [place] [address] [phone] Lakisha Julian M.D. [address] [place] [phone] Discharge Disposition: Home or Self Care documented as of this encounter Visit Diagnoses Not on filedocumented in this encounter Care Teams Ticket Printer And Tagger Relationship Specialty Start Date End Date Suhail Burrows M.B.B.SHector, MHectorD. [address] [place] [phone] PCP - General Family Medicine 06/09/22 documented as of this encounter
--- OUTSIDE RECORDS SUMMARY | 2023-11-03 14:59 | XMS_ITS | Encounter Summary ---
Author Organization [facility] Address [address] [place] [address] Care Team Providers Care Forensic Photographer Name Role Phone Suhail Burrows M.D. Primary Care Allan fernandes Reason for Visit * Reason Onset Date Comments Results 08/08/2023 Encounter Details Date Type Department Care Team (Late st Contact Info) Description 08/08/2023 Clinical Communication Department of Endocrinology in [place], [place] [address] [place] [phone] Tomer Hinson M.D. [address] [place] [phone] Results Social History Tobacco Use Types Packs/Day [...] encounter Miscellaneous Notes * Telephone Encounter - Maddi Emmanuel L.P.N. - 08/22/2023 2:19 PM CDT Message left on Pt voicemail per her request. If any further question to please call us back * Telephone Encounter - Maddi Emmanuel L.P.N. - 08/18/2023 10:37 AM PROGRAM AIDE Called no answer, left Generic message to call back RAM AIDE * Telephone Encounter - Maddi Emmanuel L.P.N. - 08/11/2023 10:59 AM PROGRAM AIDE I did call Pt no answer, no message left. RAM AIDE * Telephone Encounter - Tomer Hinson M.D. - 08/08/2023 3:57 PM CST Review of faxed records from [place] showed multiple measurements of thyroid hormone within normal range since March 2023. Blood tests obtained at [facility] today showed normal TSH level as well. Future testing for thyroid hormone levels can be done every 3-6 monthly. Blood tests showed no evidence of diabetes. Cortisol level is pending and I will let her know the results later this week. P.s. patient does not have a portal and had a generic voicemail message on her cell phone. No message was left. RAM AIDE documented in this encounter Plan of Treatment Upcoming Encounters Date Type Department Care Team (Late st Contact Info) Description 11/17/2023 4:00 PM CDT Appointment Department of Radiology in [place], [place] [address] [place] [address] Suhail Burrows M.B.B.S., [place] [address] [place] [phone] Discharge Disposition: Home or Self Care 12/26/2023 9:30 AM CDT Appointment Department of Radiology in [place], [place] [address] [place] [address] Lakisha Julian M.D. [address] [facility] [place] [address] Discharge Disposition: Home or Self Care documented as of this encounter Visit Diagnoses Not on filedocumented in this encounter Care Teams Forensic Photographer Relationship Specialty Start Date End Date Suhail Burrows M.B.B.S., M.D. [address] [place] [phone] PCP - General Family Medicine 06/09/22 documented as of this encounter
--- OUTSIDE RECORDS SUMMARY | 2023-11-03 14:59 | XMS_ITS | Encounter Summary ---
Author Organization [facility] Address [address] [place] [address] Care Team Providers Care Farm Equipment Mechanic Apprentice Name Role Phone Suhail Burrows M.D. Primary Care Allan fernandes Encounter Details Date Type Department Care Team (Latest Contact Info) Description 08/08/2023 11:18 AM BOAT OUTBOARD ENGINE MECHANIC - 08/08/2023 11:59 PM [facility] Encounter Department of Laboratory Medicine in [place], [place] [address] [place] [phone] Tomer Hinson M.D. [address] [place] [phone] Fatigue; Abnormal Thyroid Blood Test Discharge Disposition: Home or Self Care Social [...] 3 09/21/2022 documented as of this encounter Plan of Treatment Upcoming Encounters Date Type Department Care Team (Late st Contact Info) Description 11/17/2023 4:00 PM CDT Appointment Department of Radiology in [place], [place] [address] [place] [phone] Suhail Burrows M.B.B.S., M.D. [address] [place] [phone] Discharge Disposition: Home or Self Care 12/26/2023 9:30 AM CDT Appointment Department of Radiology in [place], [place] [address] [place] [phone] Lakisha Julian M.D. [address] [place] [phone] Discharge Disposition: Home or Self Care documented as of this encounter Procedures Procedure Name Priority Date/Time Associated Diagnosis Comments CORTISOL, FREE AND TOTAL Routine 08/08/2023 11:26 AM BOAT OUTBOARD ENGINE MECHANIC Fatigue THYROID-STIMULATING HORMONE-SENSITIVE (S-TSH) Routine 08/08/2023 11:26 AM BOAT OUTBOARD ENGINE MECHANIC Fatigue T4 (THYROXINE), FREE, S Routine 08/08/19 11:26 AM BOAT OUTBOARD ENGINE MECHANIC Fatigue HEMOGLOBIN A1C, B Routine 08/08/2023 11: 26 AM BOAT OUTBOARD ENGINE MECHANIC Fatigue THYROPEROXIDASE (TPO) ABS, S Routine 08/08/2023 11:22 AM BOAT OUTBOARD ENGINE MECHANIC Abnormal Thyroid Blood Test THYROTROPIN RECEPTOR AB, S Routine 08/08/2023 11:22 AM BOAT OUTBOARD ENGINE MECHANIC Abnormal Thyroid Blood Test documented in this encounter Results * Cortisol, Free and Total (08/08/2023 11:26 AM BOAT OUTBOARD ENGINE MECHANIC) Cortisol, Free, S 0.777 6:00-10:30 AM Collection 0.121-1.065 mcg/dL mcg/dL 08/12/2023 12:48 AM [facility] Comment: ----ADDITIONAL INFORMATION---- This test was developed and its performance characteristics determined by [facility] in a manner consistent with CLIA requirements. This test has not been cleared or approved by the U.S. Food and Drug Administration. Cortisol, S, LC-MS/MS 19 mcg/dL 08/12/2023 1:10 AM [facility] Comment: ----REFERENCE VALUE---- Pediatric ranges not established Adult ranges: a.m.: 5-25 p.m.: 2-14 Blood (Blood, Venous) 08/08/2023 11:26 AM BOAT OUTBOARD ENGINE MECHANIC 08/09/2023 11:24 AM BOAT OUTBOARD ENGINE MECHANIC Tomer Hinson M.D. LAB BLOOD NON ADD-ON Performing Organization Address City/[facility]/ZIP Co de Phone Number [facility] [address] [place] [address] [facility] [address] [place] [address] [place] [address] * Hemoglobin A1c (08/08/2023 11:26 AM BOAT OUTBOARD ENGINE MECHANIC) Hemoglobin A1c, B 5.6 4.2 - 5.6 % 08/08/2023 12:50 PM BOAT OUTBOARD ENGINE MECHANIC [facility] Blood (Blood, Venous) 08/08/2023 11:26 AM BOAT OUTBOARD ENGINE MECHANIC 08/08/2023 11:32 AM BOAT OUTBOARD ENGINE MECHANIC Tomer Hinson M.D. LAB BLOOD ADD-ON [facility] [address] [place] [address], [facility] [place] [facility]- [facility] [place] [facility] [place] [address] [place] [address] * T4 (Thyroxine), Free (08/08/2023 11:26 AM BOAT OUTBOARD ENGINE MECHANIC) T4 (Thyroxine), Free, P 1.1 0.9 - 1.7 ng/dL 08/08/2023 12:16 PM BOAT OUTBOARD ENGINE MECHANIC [facility] Comment: Biotin has been identified by the degree clerk as a potential interfering substance. Higher concentrations of biotin may be found in multivitamins, hair/nail supplements, and workout supplements. If the result does not match clinical observations, repeat testing after patient refrains from the use of supplements for at least 12 hours. Blood (Blood, Venous) 08/08/2023 11:26 AM BOAT OUTBOARD ENGINE MECHANIC 08/08/2023 11:32 AM BOAT OUTBOARD ENGINE MECHANIC Tomer Hinson M.D. LAB BLOOD ADD-ON Performing Organization Address [facility] Co de Phone Number [facility] [address] [address], [facility] FR[facility]IS [place] [facility]- [facility] & [address] [address] * S-TSH (Thyroid-Stimulating Hormone - Sensitive) (08/08/2023 11:26 AM BOAT OUTBOARD ENGINE MECHANIC) TSH, Sensitive 3.0 0.3 - 4.2 mIU/L 08/08/2023 12:16 PM BOAT OUTBOARD ENGINE MECHANIC FRANCIS Blood (Blood, Venous) 08/08/2023 11:26 AM BOAT OUTBOARD ENGINE MECHANIC 08/08/2023 11:32 AM BOAT OUTBOARD ENGINE MECHANIC Tomer Hinson M.D. LAB BLOOD ADD-ON Performing Organization Address City/[facility] Co de Phone Number [facility] [address] [place] [address], [facility] FR[facility] [place] [facility]- [facility] & [address] [address] * (ABNORMAL) Thyrotropin Receptor Antibody (08/08/2023 11:22 AM BOAT OUTBOARD ENGINE MECHANIC) Thyrotropin Receptor Ab, S 2.41(H) 0.00 - 1.75 IU/L 08/10/2023 10:05 AM BOAT OUTBOARD ENGINE MECHANIC [facility] Comment: ----ADDITIONAL INFORMATION---- At a decision limit of 1.75 IU/L, this assay has 97% sensitivity and 99% specificity for detection of Graves' disease. In healthy individuals and in patients with thyroid disease without diagnosis of Graves' disease, the upper limit of anti-TSHR values are 1.22 IU/L and 1.58 IU/L, respectively (97.5th percentiles). Blood (Blood, Venous) 08/08/2023 11:22 AM BOAT OUTBOARD ENGINE MECHANIC 08/10/2023 9:17 AM BOAT OUTBOARD ENGINE MECHANIC Tomer Hinson M.D. LAB BLOOD ADD-ON Performing Organization Address City/[facility]/ZIP Co de Phone Number [facility] [address] [place] [address] Formerly named [facility] [address] [place] [address] * Thyroperoxidase (TPO) Antibodies (08/08/2023 11:22 AM BOAT OUTBOARD ENGINE MECHANIC) Thyroperoxidase Ab, S <15.0 <34.0 IU/mL 08/11/2023 1:11 PM BOAT OUTBOARD ENGINE MECHANIC DTL Blood (Blood, Venous) 08/08/2023 11:22 AM BOAT OUTBOARD ENGINE MECHANIC 08/10/2023 1:31 PM BOAT OUTBOARD ENGINE MECHANIC Tomer Hinson M.D. LAB BLOOD ADD-ON Performing Organization Address City/[facility]/ZIP Co de Phone Number [facility] [address] [place] [address], [facility] [address] [place] [address] documented in this encounter Visit Diagnoses Diagnosis Fatigue Abnormal Thyroid Blood Test documented in this encounter Care Teams Farm Equipment Mechanic Apprentice Relationship Specialty Start Date End Date Suhail Burrows M.B.B.SBeronica Young. [address] [place] [phone] PCP - General Family Medicine 06/09/22 documented as of this encounter
--- OUTSIDE RECORDS SUMMARY | 2023-11-03 14:59 | XMS_ITS | Encounter Summary ---
Author Organization [facility] Address [address] [place] [address] Care Team Providers Care Die Lay Out Worker Name Role Phone Suhail Burrows M.D. 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 [address] [place] [phone] [facility] Region Referral ID Status Reason Start Date Expiration Date Visits Re quested Visits Authorized [id number] Closed 08/30/2023 08/29/2024 1 1 Encounter Details Date Type Department Care Team (Latest Contact Info) Description 09/12/2023 12:50 PM CDT - 09/15/2023 1:42 PM CDT Hospital Encounter Department of Radiation Oncology in [place], [place] [address] [place] [phone] Clemente Feng M.D. [address] [place] [phone] Ingrid Feng R.N. [address] [place] [phone] Malignant Neoplasm Of Lung Lower Lobe Or [...] Weight 48.9 kg (107 lb 12.9 oz) 09/12/2023 2:03 PM CDT Height - - Body Mass [...] PM CDT Appointment Department of Radiology in [place], [place] [address] [place] [phone] Suhail Burrows M.B.B.SHector, [place] [address] [place] [address] Discharge Disposition: Home or Self Care 12/26/2023 9:30 AM CDT Appointment Department of Radiology in [place], [place] [address] [place] [phone] Lakisha Julian M.D. 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 documented in this encounter Administered Medications Inactive Administered Medications - up to 3 most recent administrations Medication Order MAR Action Action Date Dose Rate Site iohexoL 300 mg iodine/mL solution 100 mL (OMNIPAQUE) 100 mL, intravenous, Once in imaging, contrast, Starting on Mon09/13/23 at 1442, For 1 dose Given 09/12/2023 1:33 PM CDT 100 mL NaCl 0.9 % bolus 50 mL 50 mL, intravenous, at 1,500 mL/hr, Administer over 2 Minutes, Once, On Mon09/13/23 at 1500, For 1 dose New Bag 09/12/2023 1:34 PM CDT 50 mL 1500 mL/hr sodium chloride 0.9 % injection 10 mL 10 mL, intravenous, As needed, line care, Peripheral Intravenous Catheter and Rapid Infusion Catheter, Starting on Mon09/12/23 at 1403, Prior to blood sampling, post blood transfusion or post blood sampling. Given 09/12/2023 1:34 PM CDT 10 mL Given 09/12/2023 1:00 PM CDT 10 mL documented in this encounter Care Teams Die Lay Out Worker Relationship Specialty Start Date End Date Suhail Burrows M.B.BHectorSHector, MChika. [address] [place] [address] [place] [phone] PCP - General Family Medicine 06/09/22 documented as of this encounter
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
--- OUTSIDE RECORDS SUMMARY | 2023-11-03 14:59 | XMS_ITS | Encounter Summary ---
Author Organization [facility] Address [address] [place] [address] Care Team Providers Care Lumber Sorter Machine Name Role Phone Suhail Burrows M.D. Primary Care P dena Encounter Details Date Type Department Care Team (Late st Contact Info) Description 08/11/2023 Orders Only Department of Family Medicine, [facility], in [place], [place] [address] [place] [address] Suhail Burrows M.B.B.S., M.D. [address] [place] [address] Abnormal Thyroid Blood Test (Primary Dx) Social History Tobacco Use Types [...] PM CDT Appointment Department of Radiology in [place], [place] [address] [place] [address] Suhail Burrows M.B.B.S., [place] [address] [facility] [place] [phone] Discharge Disposition: Home or Self Care 12/26/2023 9:30 AM CDT Appointment Department of Radiology in [place], [place] [address] [place] [address] Lakisha Julian M.D. [address] [place] [address] Discharge Disposition: Home or Self Care Scheduled Orders Name Type Priority Associated Diagnoses Orde r Schedule Thyroid Function [facility] Routine Abnormal Thyroid Blood Test Expected: 02/11/2024 (Approximate), Expires: 11/10/2024 documented as of this encounter Visit Diagnoses Diagnosis Abnormal Thyroid Blood Test- Primary documented in this encounter Care Teams Lumber Sorter Machine Relationship Specialty Start Date End Date Suhail Burrows M.B.B.S., Ivet [address] [facility] [place] [phone] PCP - General Family Medicine 06/09/22 documented as of this encounter
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
--- OUTSIDE RECORDS SUMMARY | 2023-11-03 14:59 | XMS_ITS | Encounter Summary ---
Author Organization [facility] Address [address] [place] [address] Care Team Providers Care Metal Stud Framer Name Role Phone Suhail Burrows M.D. 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 [address] [place] [address] [facility] Region Referral ID Status Reason Start Date Expiration Date Visits Re quested Visits Authorized [id number] Closed 08/30/2023 08/29/2024 1 1 Encounter Details Date Type Department Care Team (Late Contact Info) Description 08/30/2023 Orders Only Department of Radiation Oncology in [place], [place] [address] [place] [address] Yusra Love APRN, C.N.P., D.N.P. 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 [address] [place] [address] [place] [phone] PCP - General Family Medicine 06/09/22 documented as of this encounter
--- OUTSIDE RECORDS SUMMARY | 2023-11-03 14:59 | XMS_ITS | Encounter Summary ---
Author Organization [facility] Address [address] [place] [address] Care Team Providers Care Surfacing Machine Operator Name Role Phone Suhail Burrows M.D. 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 [address] [place] [address] [facility] Region Referral ID Status Reason Start Date Expiration Date Visits Re quested Visits Authorized [id number] Closed 08/30/2023 08/29/2024 1 1 Encounter Details Date Type Department Care Team (Latest Contact Info) Description 09/12/2023 1:54 PM CDT - 09/12/2023 9:37 PM CDT Hospital Encounter Department of Radiation Oncology in [place], [place] [address] [place] [address] Clemente Feng M.D. 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 Area scanned:Abdomen and Pelvis Contrast used for the simulation procedure: IV Patient position: Head first supine and arms up Custom immobilization: Vac-hanna and Knee Cushion Motion management: 4D CT scan Bolus: No [...] imaging was appropriate and completed without incident. Lead Cook use:No Associated attestation - Clemente Feng M.D. - 09/12/2023 9:37 PM CDT I was available for the entirety of the procedure but only present for image review. Signed by: Clemente Feng M.D. 09/12/23 9:37 PM CDT [facility] [place] documented in this encounter Plan of Treatment Upcoming Encounters Date Type Department Care Team (Late st Contact Info) Description 11/17/2023 4:00 PM CDT Appointment Department of Radiology in [place], [place] [address] [place] [address] Suhail Burrows M.B.B.S., M.D. [address] [place] [phone] Discharge Disposition: Home or Self Care 12/26/2023 9:30 AM CDT Appointment Department of Radiology in [place], [place] [address] [place] [address] Lakisha Julian M.D. 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 [address] [place] [phone] PCP - General Family Medicine 06/09/22 documented as of this encounter
--- NOTE | 2023-11-03 15:30 | CRLHL7_ITS ---
For Patients: As a result of the Century Cures Act, medical imaging exams and procedure reports are released immediately into your electronic medical record. You may view this report before your referring provider. If you have questions, please contact your health care provider. INDICATION: Lung cancer. Metastases. Staging. COMPARISON: PET scan 08/24/2023 and MRI 08/24/2023. MRI 06/26/2023 TECHNIQUE: Multiplanar T1, T2, FLAIR and diffusion-weighted imaging. Post gadolinium to weighted sequences. FINDINGS: Stable tiny punctate focus of enhancement of the left Fernandes radiata (series 15, image 62) consistent with metastasis. Metastatic lesion of the left middle cerebellar peduncle is also unchanged measured approximately 2 mm in diameter (series 15, image 125). There is a 2 mm enhancing nodule of the right superior frontal gyrus at the vertex (series 15, image 28 which is more conspicuous than on 08/24/2023 but essentially unchanged from 06/26/2023. This maybe due to slight differences in technique. The previously noted tiny enhancing nodule at the ventral margin of the right midbrain and cerebral peduncle is not evident on the current exam. No new abnormal enhancement or enhancing lesions elsewhere. Mild generalized volume loss. Scattered patchy T2/FLAIR signal hyperintense within the white-matter of both cerebral hemispheres which likely represents a combination of chronic deep white matter small vessel ischemic changes and post treatment changes. No intracranial hemorrhage. No abnormal ventricular dilatation. Intracranial vascular flow voids are preserved. No mass effect or midline shift. No restricted diffusion to suggest acute ischemia. Bilateral orbits are unremarkable. Normal appearing sella. Visualized paranasal sinuses mastoid air cells are unremarkable. IMPRESSION: 1. Stable punctate foci of enhancement of the left fernandes radiata and left middle cerebellar peduncle consistent with known metastases. 2. 2 millimeter enhancing metastasis of the right superior frontal gyrus at the vertex is more conspicuous compared to 08/24/2023 but unchanged from 06/26/2023. 3. A previously noted enhancing nodule at the ventral margin of the right midbrain is not evident on the current exam. 4. No new abnormal enhancement or enhancing lesions elsewhere. 5. No acute intracranial abnormality. 6. Mild generalized cerebral volume loss. Patchy T2/FLAIR signal hyperintensity within the white matter of both cerebral hemispheres which likely represents a combination of chronic deep white matter small vessel ischemic changes and posttreatment changes. Dictated by Domingo Vargas MD @ 11/05/2023 3:15:59 PM (Electronically Signed)
== END 2023-11-03 14:56 | disposition home or self-care (01) ==
LOC: MRI 14:56
PROVIDERS: PCP Family Medicine; Visit Provider Internal Medicine
DX: C79.31 Secondary malignant neoplasm of brain (principal)
CPT/HCPCS: 70553; A9575

== ENCOUNTER 2023-12-26 14:09 | Outpatient (CLI) | payer BC, SELFPAY ==
--- OUTSIDE RECORDS SUMMARY | 2023-12-26 14:11 | XMS_ITS | Clinical Summary ---
Author Organization [facility] Address [address] [place] [address] Care Team Providers Care Junior Programmer Analyst Name Role Phone Suhail Burrows M.D. Primary Care Allan fernandes Source Comments Patient records contain information from all sites at [facility]. For routine questions regarding patient records, call [phone] during business hours, M-F 8:00 AM - 5:00 PM Central Time. Record requests for emergency care only can be directed to [phone] at any time.[facility] Allergies No known active allergies Medications Medication [...] each radiation treatment. 10 tablet 09/12/2023 Active cyclobenzaprine (FLEXERIL) 10 mg tablet Take 1 tablet (10 mg total) by mouth at bedtime as needed for muscle spasms. 30 tablet 3 11/17/2023 Active Active Problems Problem Noted Date Diagnosed [...] Undetermined Significanc e Cervix 08/29/2013 Overview: 07/08/16: [place]: GROVER 1 08/03/16: LEEP: Negative, Ecto: Positive for atypia suggestive of HPV effect Endo: Free of atypia and GROVER 12/21/17: LSIL/HPV Positive Plan: Colposcopy Resolved Problems Problem Noted Date Diagnosed Date Resolved Date Elevated Blood Pressure Without Hypertension 2 06/20/2022 Melanoma Skin 04/01/2010 08/01/2022 Overview: Right arm 2000 Encounters Date Type Department Care Team Description 12/26/2023 8:37 AM CDT Hospital Encounter Department of Radiology in [place], [place] [address] [place] [address] Lakisha Julian M.D. 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) 11/29/2023 Clinical Communication Department of [facility] [place] [employer], [place] [address] [place] [address] Nelly Ch M.D. Results 11/21/2023 9:00 AM CDT Comprehensive Visit Department of Family [facility], in [place], [place] [address] [place] [address] Arina Lindsay APRN, C.N.P. Keratosis Actinic (Primary Dx); Screening Examination Skin Cancer; Melanoma Of Skin Cancer Personal History; Keratosis Seborrheic Inflamed; Dermatoheliosis; Nevi Multiple 11/20/2023 Clinical Communication Department of Family Medicine, [facility], in [place], [place] [address] [place] [address] Suhail Burrows M.B.B.S., M.D. Results 11/17/2023 4:19 PM CDT - 11/17/2023 11:59 PM CDT Hospital Encounter Department of Laboratory Medicine in [place], [place] [address] [place] [address] Nelly Ch M.D. Well Adult Examination Normal Discharge Disposition: Home or Self Care 11/17/2023 4:00 PM CDT - 11/17/2023 4:18 PM CDT Hospital Encounter Department of Radiology in [place], [place] [address] [place] [address] Suhail Burrows M.B.B.S., M.D. Screening Mammogram Breast Cancer Discharge Disposition: Home or Self Care 11/17/2023 3:00 PM CDT Comprehensive Visit Department of Family Medicine, [facility], in [place], [place] [address] [place] [address] Nelly Ch M.D. Well Adult Examination Normal (Primary Dx); Screening Examination Skin Cancer; Cancer Lung Adenocarcinoma Personal History; Secondary Malignant Neoplasm Bone (HCC); Hypertension Essential Primary; Arthritis 10/17/2023 Orders Only [facility] Suhail Burrows M.B.BIvet Corral Screening Mammogram Breast Cancer 10/11/2023 Orders Only Department of Oncology in [place], [place] [address] [place] [address] Lakisha Julian M.D. 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) (Primary Dx) 10/03/2023 Orders Only Department of Radiation Oncology in [place], [place] [address] [place] [address] Nilam Clarke P.A.-C., M.S. Secondary Malignant Neoplasm Brain (HCC) (Primary Dx) 09/26/2023 4:00 PM CDT - 09/26/2023 11:59 PM CDT Hospital Encounter Department of Radiation Oncology in [address] [address] Clemente Feng M.D. Retterath, Chelsey A, R.N. 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 Discharge Disposition: Home or Self Care 09/26/2023 Documentation Department of Radiation Oncology in [address] [address] Clemente Feng M.D. from Last 3 Months Immunizations Name Administration Dates Next Due Influenza (IM) Preservative Free 02/28/2010 Influenza TIV (IM) 04/12/2012,03/12/2010 Influenza, Injectable, Quadrivalent 04/01/2022,1 Influenza, Seasonal, Injectable 04/12/2012 PCV20 11/17/2023 Tdap 11/17/2023,04/01/2010 influenza vaccine quad (FLUZ ONE/FLUARIX) (6 months [...] = 0.6 oz pur e alcohol) rare [facility] Utilities Answer Date Recorded In the past 12 months has e electric, gas, oil, or water [employer] threatened to shut off services in your home? No 11/17/2023 PHQ-2 Answer Date Recorded PHQ-2 Score 0 11/17/2023 Exercise Vital Sign Answer Date Recorde d On average, how many days pe r week do you engage in moderate to strenuous exercise (like a brisk walk)? 7 days Minutes of Exercise per Session Not on file 11/17/2023 Hunger Vital Sign Answer Date Recorded Within the past 12 months, y ou worried that your food would run out before you got the money to buy more. Never true 11/17/19 24 Within the past 12 months, t he food you bought just didn't last and you didn't have money to get more. Never true 11/17/2023 PRAPARE - Transportation Answer Date Re corded In the past 12 months, has l ack of transportation kept you from medical appointments or from getting medications? No 12/2023 In the past 12 months, has l ack of transportation kept you from meetings, work, or from getting things needed for daily living? No 11/17/2023 Nutrition Answer Date Recorded On average, how many serving s of fruits and vegetables do you eat per day (serving size is equal to 1 cup or approximately the size of a tennis ball)? 0-2 11/17/2023 Dental Answer Date Recorded Dental: Regular Dentist No 11/17/19 24 Employment Answer Date Recorded Employment status Retired 11/17/2023 Housing Stability Answer Date Recorded What is your living situation today? I have a [facility] place to live 11/17/2023 Sex and Gender Information Value Date Recorded Sex Assigned at Female 11/17/2023 2:56 PM CDT Gender Identity Female 11/17/2023 2:56 PM CDT Sexual Orientation Straight 11/17/2023 2: 56 PM CDT Last Filed Vital Signs Vital Sign Reading Time Taken Comments Blood Pressure 121/67 11/17/2023 3:03 PM CDT average of 3 Pulse 61 11/17/2023 3:03 PM CDT Temperature 36.3 ??C (97.3 ??F) 11/17/2023 3 :03 PM CDT Respiratory Rate 16 11/17/2023 3:03 PM CDT Oxygen Saturation 92% 08/08/2022 10: 30 AM RACETRACK STEWARD Inhaled Oxygen Concentration - - Weight 48.9 kg (107 lb 14.6 oz) 11/17/2023 3:03 PM CDT Height 157 cm (5' 1.81) 11/17/2023 3:0 3 PM CDT Body Mass Index 19.86 11/17/2023 3:03 PM CDT Plan of Treatment Upcoming Encounters Date Type Department Care Team (Late st Contact Info) Description 01/01/2024 2:00 PM CDT Appointment Department of Radiation Oncology in [place], [place] [address] [place] [address] Clemente Feng M.D. [address] [place] [address] Health Maintenance Due Date Last Done Comments CT Colonography 1961 Cologuard 1961 HIV Screening 1961 Hepatitis C Screening 1961 Zoster Vaccines (1 of 2) 1980 COVID-19 Vaccine ( season) 2023 06/17/2021, 10/20/2020, 09/29/2020 Influenza Vaccine (#1) 2024 , 03/30/2021, 04/12/2016, Additional history exists Mammogram 11/16/2024 11/17/2023, 09/10, 12/21/2017, Additional history exists Office Visit for Blood Pressure Check / Re-check 11/16/2024 11/17/2023 Visit: Chronic Disease, age 18+ 11/16/2024 11/17/2023 Colonoscopy 05/20/2026 05/20/2016 Colorectal Cancer Surveillance 05/20/2026 Fasting Glucose for Diabetes Screening 08/08/2026 08/08/2023, 08/18/2022, 07/04/2022 Cervical Cancer Screening 11/16/20282023, 11/17/2023, 09/21/2022, Additional history exists Lipid (Cholesterol) Screening 11/16/2028 11/17/2023, 09/21/2022 DTaP,Tdap,and Td Vaccines (3 - Td or Tdap) 11/16/2033 11/17/2023, 04/01/2010 Lung Cancer Screening Discontinued 07/05/2022 Depression Screening (Annual PHQ-2) Completed 11/17/2023, 11/17/2023 Pneumococcal vaccine (0-64 years) Completed 11/17/2023 HPV Vaccines Aged Out No longer eligi ble based on patient's age to complete this topic Procedures Procedure Name Priority Date/Time Associated Diagnosis Comments PET CT SKULL TO THIGH RAD - Routine (most inpatients and all outpatients) 12/26/2023 10:20 AM CDT 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) LESION DESTRUCTION Routine 11/21/2023 9: 13 AM CDT Keratosis Actinic LIPID PANEL, S Routine 11/17/2023 4:25 PM CDT Well Adult Examination Normal BI BREAST SCREENING BILATERAL WITH TOMOSYNTHESIS RAD - Routine (most inpatients and all outpatients) 11/17/2023 4:19 PM CDT Screening Mammogram Breast Cancer THINPREP W/HPV CO-TEST SCREEN Routine 11/17/2023 3:33 PM CDT Well Adult Examination Normal HPV WITH GENOTYPING, PCR, THINPREP Routine 11/17/2023 3:33 PM CDT OUTSIDE MR NEURO Routine 11/03/2023 3:20 PM CDT ARIA COURSE COMPLETE TREATMENT INFORMATION Routine 09/26/2023 3:21 PM CDT ARIA DAILY TREATMENT INFORMATION Routine 09/26/2023 3:21 PM CDT HEMOGLOBIN A1C, B Routine 08/08/2023 11:26 AM RACETRACK STEWARD Fatigue CT CHEST WITH IV CONTRAST RAD - Routine (most inpatients and all outpatients) 07/05/2022 8:01 AM RACETRACK STEWARD Nodule Pulmonary from Last 3 Months or Most Recently Relevant to Health Maintenance Results * PET CT Skull to Thigh FDG (12/26/2023 10:20 AM CDT) Anatomical Region Laterality Modality Body, Nuclear Medicine PET R ST LOS, PET ARZ LOS, Nuclear Medicine PET FLA LOS, Nuclear Medicine N/A Positron Emission Tomography (PET) Impressions 12/26/2023 11:19 AM CDT 1. ??Mixed disease response with progressed bilateral external iliac lymphadenopathy. Remaining sites of metastatic disease are stable to decreased as detailed above. 2. ??Stable dilation of the ascending thoracic aorta. Narrative 12/26/2023 11:19 AM CDT EXAM: PET CT SKULL TO THIGH FDG COMPARISON: Head CT 08/24/2023 INDICATION: Metastatic lung cancer. Subsequent treatment strategy. F-[address] scan was performed from the mid calvarium through the upper thighs with CT fusion imaging for attenuation correction, anatomic coregistration, and respiratory gating only. Serum glucose at time of F-18 FDG injection: 108 mg/dL. Uptake time: 60 minutes following injection. The patient reports no recent vaccinations. FINDINGS: PET findings: Compared to the prior examination, the FDG avid left lower lobe pulmonary nodule is not significant changed in size measuring 1.7 cm x 1.7 cm and demonstrates mild FDG avidity maximum SUV 2.7, previously 3.7. There are FDG avid mediastinal and left hilar lymph nodes, most FDG avid with maximum SUV 6.0 on series 604 image 82, previously 7.6. Stable posterior right upper lobe pulmonary nodule measuring 6 mm with maximum SUV 1.1 on series 6 and 4 image 73. A right axillary lymph node is unchanged in size measuring 7 mm short axis with maximum SUV 2.7 on series 604 image 62. A left external iliac lymph node is increased in size measuring 8 mm with maximum SUV 16.2 (series 604 image 198). Right external iliac lymph node measures 5 mm short axis, unchanged in size with maximum SUV 5.9, previously 5.1. Upper abdominal lymphadenopathy has significantly decreased and is difficult to measure definitively on CT images. Previously maximum SUV up to 17.4, today maximum SUV 2.0. Diffuse FDG avid osseous metastatic disease with the most avid lesion being along the left sacral ala with maximum SUV 5.4, previously 7.8 on series 6 and [address] findings: Dilation of ascending thoracic aorta measuring 4.0 cm. Calcified atherosclerosis throughout the thoracic aorta and major branches including the coronary arteries. Stable right renal parenchymal calcification. Calcified atherosclerosis throughout the aorta and major branches. Stable diffuse sclerotic osseous metastases, most of which demonstrate no significant FDG avidity. RADIOPHARMACEUTICAL/MEDS: Route: intravenous fludeoxyglucose F 18 injection HALF-WAY (FDG F-18),13 millicurie Procedure Note Yousif Velasco M.D. - 12/26/2023 EXAM: PET CT SKULL TO THIGH FDG COMPARISON: Head CT 08/24/2023 INDICATION: Metastatic lung cancer. Subsequent treatment strategy. F-[address] scan was performed from the mid calvarium through theupper thighs with CT fusion imaging for attenuation correction, anatomiccoregistration, and respiratory gating only. Serum glucose at time of F-18 FDG injection: 108 mg/dL. Uptake time: 60 minutes following injection. The patient reports no recent vaccinations. FINDINGS: PET findings: Compared to the prior examination, the FDG avid left lower lobe pulmonarynodule is not significant changed in size measuring 1.7 cm x 1.7 cm anddemonstrates mild FDG avidity maximum SUV 2.7, previously 3.7. There areFDG avid mediastinal and left hilar lymph nodes, most FDG avid with maximum SUV 6.0 on series 604 image 82,previously 7.6. Stable posterior right upper lobe pulmonary nodule measuring 6 mm withmaximum SUV 1.1 on series 6 and 4 image 73. A right axillary lymph node is unchanged in size measuring 7 mm short axiswith maximum SUV 2.7 on series 604 image 62. A left external iliac lymphnode is increased in size measuring 8 mm with maximum SUV 16.2 (series 604image 198). Right external iliac lymph node measures 5 mm short axis, unchanged in size with maximumSUV 5.9, previously 5.1. Upper abdominal lymphadenopathy has significantly decreased and isdifficult to measure definitively on CT images. Previously maximum SUV upto 17.4, today maximum SUV 2.0. Diffuse FDG avid osseous metastatic disease with the most avid lesionbeing along the left sacral ala with maximum SUV 5.4, previously 7.8 onseries 6 and [address] findings: Dilation of ascending thoracic aorta measuring 4.0 cm. Calcifiedatherosclerosis throughout the thoracic aorta and major branches includingthe coronary arteries. Stable right renal parenchymal calcification.Calcified atherosclerosis throughout the aorta and major branches. Stable diffuse sclerotic osseous metastases,most of which demonstrate no significant FDG avidity. RADIOPHARMACEUTICAL/MEDS: Route: intravenous fludeoxyglucose F 18 injection HALF-WAY (FDG F-18),13 millicurie IMPRESSION: 1. Mixed disease response with progressed bilateral external iliaclymphadenopathy. Remaining sites of metastatic disease are stable todecreased as detailed above. 2. Stable dilation of the ascending thoracic aorta. Lakisha Julian M.D. [facility] [place] PROCEDURES * Lesion Destruction (11/21/2023 9:13 AM CDT) Narrative Bouchra Gregory R.M.A. - 11/21/2023 9:13 AM CDT Complexity: simple ?? Destruction method: cryotherapy ?? Informed consent: discussed and consent obtained ?? Timeout: ??patient name, date of , surgical site, and procedure verified Lesion destroyed using liquid nitrogen: Yes ?? Outcome: patient tolerated procedure well with no complications ?? Post-procedure details: wound care instructions given ?? Arina Lindsay APRN, C.N.P. PROCEDURE/MINOR SURGICAL ORDERABLES * (ABNORMAL) Lipid Panel (11/17/2023 4:25 PM CDT) Triglycerides 160(H) mg/dL 11/17/2023 6:19 PM CDT OW[facility] Comment: ----REFERENCE VALUE---- Normal: <150 mg/dL Borderline High: 150-199 mg/dL High: 200-499 mg/dL Very High: > or =500 mg/dL Cholesterol, Total 258(H) mg/dL 2023 6:19 PM CDT OWAT Comment: ----REFERENCE VALUE---- Desirable: < 200 mg/dL Borderline High: 200 - 239 mg/dL High: > or = 240 mg/dL Cholesterol, LDL, Calculated 156(H) mg/dL 11/17/2023 6:19 PM CDT OW[facility] Comment: ----REFERENCE VALUE---- Desirable: <100 mg/dL Above Desirable: 100-129 mg/dL Borderline High: 130-159 mg/dL High: 160-189 mg/dL Very High: >=190 mg/dL ----ADDITIONAL INFORMATION---- LDL cholesterol calculated using the Neri/NIH equation. Cholesterol, HDL 74 >=50 mg/dL 11/17/19 6:19 PM CDT OW[facility] Cholesterol, Non-HDL, Calculated 184(H) mg/dL 11/17/2023 6:19 PM CDT [facility] Comment: ----REFERENCE VALUE---- Desirable: <130 mg/dL Above Desirable: 130-159 mg/dL Borderline High: 160-189 mg/dL High: 190-219 mg/dL Very High: > or =220 mg/dL Fasting (8 HR or more) No 11/17/2023 5:43 PM CDT [facility] Blood (Blood, Venous) 11/17/2023 4:25 PM CDT 11/17/2023 5:43 PM CDT Nelly Ch M.D. LAB BLOOD ADD-ON [facility] [address] [place] [address], [facility] [place] [facility] in [place] [address] [place] [address] * BI Breast Screening Bilateral with Tomosynthesis (11/17/2023 4:19 PM CDT) Anatomical Region Laterality Modality Breast, Breast Imaging RST L OS, Breast Imaging ARZ LOS, Breast Imaging FLA LOS Bilateral Mammography Impressions 11/17/2023 4:56 PM CDT Negative. RECOMMENDATION: ??Annual Screening Mammogram ASSESSMENT: ??BI-RADS: 1: Negative. Narrative 11/17/2023 4:56 PM CDT EXAM: ??BI BREAST SCREENING BILATERAL WITH TOMOSYNTHESIS Current study was evaluated with a Computer Aided Detection (CAD) system. INDICATION: ??Screening mammogram. COMPARISON: ??Prior exam(s) were available and reviewed for comparison. DENSITY: ??c. The breast(s) are heterogeneously dense, which may obscure small masses. FINDINGS: ??No mammographic findings of malignancy. Procedure Note Joseph Uribe M.D. - 11/17/2023 EXAM: BI BREAST SCREENING BILATERAL WITH TOMOSYNTHESIS [...] Suhail Davies M.D. IMG BI PROCEDURES * ThinPrep w/HPV Co-Test Screen (11/17/2023 3:33 PM CDT) 11/28/2023 6:58 AM CDT [facility] Report electronically signed by DAVID Taylor(ASCP) I verify that I have examined all relevant slides/materials for the specimen(s) and rendered or confirmed the diagnosis. 11/28/2023 6:58 AM CDT [facility] Gross Description Received specimen in a ThinPrep vial. 11/28/2023 6:58 AM CDT [facility] Pap Test Source Cervical/Endocervi praveena 11/28/2023 6:58 AM CDT [facility] Hormone Therapy/Contracep tives None/Not known 11/28/2023 6:58 AM CDT [facility] Interpretation Cervical/Endocervi praveena ??(ThinPrep): Satisfactory for Evaluation Endocervical/trans formation zone components absent Negative for Intraepithelial Lesion or Malignancy Shift in vernon suggestive of bacterial vaginosis High Risk HPV: ??Negative Negative for High Risk HPV by nucleic acid amplification. The following High Risk HPV types were not detected: 16, 18, 31, 33, 35, 39, 45, 51, 52, 56, 58, 59, 66, and 68. 11/28/2023 6:58 AM CDT [facility] Thin Prep Vial (Cervix/Endocerv ix) 11/17/2023 3:33 PM CDT 11/20/2023 7:40 AM CDT Nelly Ch M.D. LAB PAP PATHDX ORDER ALESIA Performing Organization Address City/[facility]/ZIP Co de Phone Number [facility] [address] [place] [address], [facility] [address] [facility] [address] [id number] * HPV with Genotyping, PCR, ThinPrep (11/17/2023 3:33 PM CDT) HPV with Genotyping, ThinPrep, PCR Negative Negative 11/20/2023 2:33 PM CDT [facility] Comment: Negative for high risk HPV by nucleic acid amplification. ??The following high risk HPV types were not detected: 16, 18, 31, 33, 35, 39, 45, 51, 52, 56, 58, 59, 66, and 68 This result does not rule out HPV in the patient, as the sensitivity of the test depends on the timing of the specimen collection and the quality of the specimen. Result should be correlated with patient's history, clinical presentation, and EMBLEM DRAWER IN cytology report. 11/17/2023 3:33 PM CDT 11/20/2023 7:40 AM CDT Nelly Ch M.D. LAB MICROBIOLOGY - G ENERAL ORDERABLES Performing Organization Address City/[facility]/ZIP Co de Phone Number [facility] [address] [place] [address], [facility] [address] [address] * MR head/brain wo/w con-Outside MR Neuro (11/03/2023 3:20 PM CDT) Narrative IIMS - 11/22/2023 4:08 PM CDT This order has been created and auto-finalized to support the import of outside images. If available, original interpretation can be found on the Media Tab in Chart Review, in Document Viewer, as an image in QREADS or as an Addendum. If a re-interpretation or overread is required please follow defined workflow.?? Provider Not In System IMG MRI PROCEDURE S IIMS NA * Aria Course Complete Treatment Information (09/26/2023 3:21 PM CDT) Course ID [id number] te GAMING ARIA Course Start Date 4 10:56 CDT GAMING ARIA Course End Date 4 13:57 CDT GAMING ARIA First Treatment Date 4 15:21 CDT GAMING ARIA Last Treatment Date 4 15:21 CDT GAMING ARIA Treatment Elapsed Days 6 GAMING ARIA Reference Point [id number] Iliac GAMING ARIA Dosage Given to Date cGy 2500 GAMING ARIA Reference Point [id number]_ Abd GAMING ARIA Dosage Given to Date cGy 2500 GAMING ARIA Plan ID [id number] GAMING ARIA Fractions Treated to Date 5 GAMING ARIA Planned Total Fractions 5 GAMING ARIA Prescribed Dose Per Fraction 500 GAMING ARIA Prescription Dose in cGy 2500 GAMING ARIA Plan Primary Reference Point [id number]_ Iliac GAMING ARIA Plan ID [id number] GAMING ARIA Fractions Treated to Date 5 GAMING ARIA Planned Total Fractions 5 GAMING ARIA Prescribed Dose Per Fraction 500 GAMING ARIA Prescription Dose in cGy 2500 GAMING ARIA Plan Primary Reference Point [id number]_ Abd GMAING ARIA 09/26/2023 3:21 PM CDT Provider Not In System RADIATION ONCOLOG Y ORDERABLES GAMING ARIA na * Aria Daily Treatment Information (09/26/2023 3:21 PM CDT) Course ID [id number] te GAMING ARIA Course Start Date 4 10:56 CDT GAMING ARIA First Treatment Date 4 15:21 CDT GAMING ARIA Last Treatment Date 4 15:21 CDT GAMING ARIA Treatment Elapsed Days 6 GAMING ARIA Reference Point [id number]_ Iliac GAMING ARIA Dosage Given to Date cGy 2500 GAMING ARIA Session Dosage Given 500 GAMING ARIA Reference Point [id number]_ Abd GAMING ARIA Dosage Given to Date cGy 2500 GAMING ARIA Session Dosage Given 500 GAMING ARIA Plan ID [id number] GAMING ARIA Fractions Treated to Date 5 GAMING ARIA Planned Total Fractions 5 GAMING ARIA Prescribed Dose Per Fraction 500 GAMING ARIA Prescription Dose in cGy 2500 GAMING ARIA Plan Primary Reference Point [id number]_ Iliac GAMING ARIA Plan ID [id number] GAMING ARIA Fractions Treated to Date 5 GAMING ARIA Planned Total Fractions 5 GAMING ARIA Prescribed Dose Per Fraction 500 GAMING ARIA Prescription Dose in cGy 2500 GAMING ARIA Plan Primary Reference Point [id number]_ Abd GAMING ARIA 09/26/2023 3:21 PM CDT Provider Not In System RADIATION ONCOLOG Y ORDERABLES AMBERLY RUFFIN na * Hemoglobin A1c (08/08/2023 11:26 AM RACETRACK STEWARD) Hemoglobin A1c, B 5.6 4.2 - 5.6 % 08/08/2023 12:50 PM RACETRACK STEWARD FRANCIS Blood (Blood, Venous) 08/08/2023 11:26 AM RACETRACK STEWARD 08/08/2023 11:32 AM RACETRACK STEWARD Tomer Hinson M.D. LAB BLOOD ADD-ON [facility] [place] [address], [facility]ANCIS [place] [facility] [address] [address] * CT Chest with IV Contrast (07/05/2022 8:01 AM RACETRACK STEWARD) Anatomical Region Laterality Modality Chest, Thoracic RST LOS, Tho racic ARZ LOS, Thoracic ARZ LOS, Thoracic FLA LOS N/A Computed Tomography 07/05/2022 8:43 AM RACETRACK STEWARD Impressions 07/05/2022 8:51 AM RACETRACK STEWARD 1. Spiculated left lower lobe mass, highly [...] attention at follow-up. Narrative 07/05/2022 8:51 AM RACETRACK STEWARD EXAM: CT CHEST WITH IV CONTRAST COMPARISON: [...] Recently Relevant to Health Maintenance Care Teams Junior Programmer Analyst Relationship Specialty Start Date End Date Suhail Burrows M.B.B.S., M.D. [address] [place] [phone] PCP - General Family Medicine 06/09/22
--- OUTSIDE RECORDS SUMMARY | 2023-12-26 14:12 | XMS_ITS | Encounter Summary ---
Author Organization [facility] Address [address] [place] [address] Care Team Providers Care Bundle Clerk Name Role Phone Suhail Burrows M.D. Primary Care P dena Reason for Referral * Outpatient (Routine) - Authorized Specialty Diagnoses / Procedures Referred By Contac t Referred To Contact Radiation Oncology Clemente Feng M.D. [address] [place] [phone] Clemente Feng M.D. [address] [place] [phone] Referral ID Status Reason Start Date Expiration Date V isits Requested Visits Authorized [id number] Authorized 10/03/2023 04/03/2025 1 1 Scheduling Instructions Brain MRI at [facility] and body imaging (as ordered by Dr. Julian) prior to visit. Please get images and reports as well as Dr. Julian's recent notes. * MRI/CAT/PET Scan (Routine) - Authorized Specialty Diagnoses / Procedures Referred By Contac t Referred To Contact Radiology Diagnoses Secondary Malignant Neoplasm Brain (HCC) Procedures MR Brain without and with IV Contrast Clemente Feng M.D. [address] [place] [phone] [facility] Referral ID Status Reason Start Date Expiration Date V isits Requested Visits Authorized [id number] Authorized 10/03/2023 10/02/2024 1 1 Encounter Details Date Type Department Care Team (Late st Contact Info) Description 10/03/2023 Orders Only Department of Radiation Oncology in [place], [place] [address] [place] [address] Edwardo Clarke P.A.-C., M.S. [address] [place] [phone] Secondary Malignant Neoplasm Brain (HCC) (Primary Dx) [...] Orientation Straight 11/17/2023 2: 56 PM CDT documented as of this encounter Miscellaneous Notes * Addendum Note - Edwardo Clarke P.A.-C., M.S. - 10/03/2023 8:25 AM CDTAddended by: EDWARDO CLARKE on: 10/03/2023 08:29 AM Modules accepted: Orders documented in this encounter Plan of Treatment Upcoming Encounters Date Type Department Care Team (Late st Contact Info) Description 01/01/2024 2:00 PM CDT Appointment Department of Radiation Oncology in [place], [place] [address] [place] [address] Clemente Feng M.D. [address] [place] [phone] Scheduled Orders Name Type Priority Associated Diagnoses [...] Primary documented in this encounter Care Teams Bundle Clerk Relationship Specialty Start Date End Date Suhail Burrows M.B.B.SHector, MChika. [address] [place] [phone] PCP - General Family Medicine 06/09/22 documented as of this encounter
--- OUTSIDE RECORDS SUMMARY | 2023-12-26 14:12 | XMS_ITS | Encounter Summary ---
Author Organization [facility] Address [address] [place] [address] Care Team Providers Care Anesthesiologist Assistant Name Role Phone Suhail Burrows M.D. 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 200 [place] [address] [facility] Referral ID Status Reason Start Date Expiration Date Visits Re quested Visits Authorized [id number] Closed 09/18/2023 08/29/2024 5 5 Encounter Details Date Type Department Care Team (Latest Contact Info) Description 09/22/2023 2:50 PM CDT - 09/22/2023 11:59 PM CDT Hospital Encounter Department of Radiation Oncology in [place], [place] [address] [place] [phone] Clemente Feng M.D. 200 [place] [phone] Discharge Disposition: Home or Self Care Social [...] PM CDT documented as of this encounter Medications at [...] before each radiation treatment. 10 tablet 09/12/2023 cyclobenzaprine (FLEXERIL) 10 mg tablet Take 1 tablet by mouth at bedtime as needed for muscle spasms. 06/09/2022 11/17/2023 documented as of this encounter Plan of Treatment Upcoming Encounters Date Type Department Care Team (Late st Contact Info) Description 01/01/2024 2:00 PM CDT Appointment Department of Radiation Oncology in [place], [place] [address] [place] [phone] Clemente Feng M.D. [address] [place] [address] documented as of this encounter Visit Diagnoses Not on filedocumented in this encounter Care Teams Anesthesiologist Assistant Relationship Specialty Start Date End Date Suhail Burrows M.B.B.S., [place]. [address] [place] [phone] PCP - General Family Medicine 06/09/22 documented as of this encounter
--- OUTSIDE RECORDS SUMMARY | 2023-12-26 14:12 | XMS_ITS | Encounter Summary ---
Author Organization [facility] Address [address] [place] [address] Care Team Providers Care Tool And Die Maker/Designer Name Role Phone Suhail Burrows M.D. 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 [address] [place] [address] [facility] Region Referral ID Status Reason Start Date Expiration Date V isits Requested Visits Authorized [id number] Authorized 08/30/2023 08/29/2024 10 10 Encounter Details Date Type Department Care Team (Latest Contact Info) Description 09/20/2023 2:46 PM CDT - 09/20/2023 6:02 PM CDT Hospital Encounter Department of Radiation Oncology in [place], [place] [address] [place] [address] Clemente Feng M.D. [address] [place] [address] Secondary Malignant Neoplasm Lymph Node Intra Abdominal [...] PM CDT documented as of this encounter Last Filed [...] 06/09/2022 11/17/2023 documented as of this encounter Progress Notes * Clemente Feng M.D. - 09/20/2023 4:00 PM CDT SUBJECTIVE CHIEF COMPLAINT/REASON FOR VISIT Evaluation for side effects while receiving radiation treatment for 1. 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 ([id number]) HISTORY OF PRESENT ILLNESS Miss Sandrine Deleon [...] (cGy) First Treatment Last Treatment Elapsed Days [id number] 1 / 5 [phone] 09/20/2023 09/20/2023 0 [id number] 1 / 5 [phone] 09/20/2023 09/20/2023 0 Course Summary 09/20/2023 09/20/2023 [...] Clemente Feng M.D. 09/20/2023 6:02 PM CDT [facility] [address] [place] [address] documented in this encounter Plan of Treatment Upcoming Encounters Date Type Department Care Team (Late st Contact Info) Description 01/01/2024 2:00 PM CDT Appointment Department of Radiation Oncology in [address] [phone] Clemente Feng M.D. 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 [address] [place] [phone] PCP - General Family Medicine 06/09/22 documented as of this encounter
--- OUTSIDE RECORDS SUMMARY | 2023-12-26 14:12 | XMS_ITS | Encounter Summary ---
Author Organization [facility] Address [address] [place] [address] Care Team Providers Care Cylinder Grinder Name Role Phone Suhail Burrows M.D. Primary Care Allan fernandes Reason for Visit * Reason Onset Date Comments Results 11/29/2023 Encounter Details Date Type Department Care Team (Late st Contact Info) Description 11/29/2023 Clinical Communication Department of Family Medicine, [facility], in [place], [place] [address] [place] [address] Nelly Ch M.D. [address] [place] [address] Results Social History Tobacco Use Types Packs/Day Years Used Date Smoking Tobacco: Former Cigarettes 1 30.2 1 993 - 08/10/2022 Smokeless Tobacco: Never Alcohol Use Standard Drinks/Week Comments Yes 0 (1 standard drink = 0.6 oz pur e alcohol) rare [facility] Utilities Answer Date Recorded In the past 12 months has e [employer], gas, oil, or water [employer] threatened to shut off services in your [...] Date Recorded Dental: Regular Dentist No 11/17/19 Employment Answer Date Recorded Employment status Retired 11/17/2023 Housing Stability Answer Date Recorded What is your living situation today? [facility] 11/17/2023 Sex and Gender Information Value Date Recorded Sex Assigned at Female 11/17/2023 2:56 PM CDT Gender Identity Female 11/17/2023 2:56 PM CDT Sexual Orientation Straight 11/17/2023 2: 56 PM CDT documented as of this encounter Miscellaneous Notes * Telephone Encounter - Tiarra Monroy, LHectorP.N. - 12/01/2023 10:23 AM CDT SUBJECTIVE CHIEF COMPLAINT / REASON FOR CALL Results Information Discussed Patient notified of results and recommendations as listed below by Dr. Ch. PLAN Disposition/Recommendation: recommended continue engagement in self-management activities Information/Education: patient/caller able to teach back Caller agreeable to plan of care: yes The following references were used: provider Dr. Ch documented in this encounter Plan of Treatment Upcoming Encounters Date Type Department Care Team (Late st Contact Info) Description 01/01/2024 2:00 PM CDT Appointment Department of Radiation Oncology in [place] [id number] [place] [address] Clemente Feng M.D. [address] [place] [address] documented as of this encounter Visit Diagnoses Not on filedocumented in this encounter Care Teams Cylinder Grinder Relationship Specialty Start Date End Date Suhail Burrows M.B.B.S., M.D. [address] [place] [phone] PCP - General Family Medicine 06/09/22 documented as of this encounter
--- OUTSIDE RECORDS SUMMARY | 2023-12-26 14:12 | XMS_ITS | Encounter Summary ---
Author Organization [facility] Address [address] [place] [address] Care Team Providers Care Dumper [employer] Name Role Phone Suhail Burrows M.D. Primary Care Allan feranndes Reason for Referral * Outpatient (Routine) - Closed Specialty Diagnoses / Procedures Referred By Yelena griffin Referred To Contact Family Medicine Diagnoses Screening Examination Skin Cancer Nelly Ch M.D. [address] [place] [address] [facility] Referral ID Status Reason Start Date Expiration Date Visits Re quested Visits Authorized [id number] Closed 11/17/2023 05/18/2025 1 1 Reason for Visit * Reason Comments Gynecologic Exam Would like to repeat pap from last year. Would like mole checked on abdomen. * Appointment Request (Routine) - Closed Specialty Diagnoses / Procedures Referred By Yelena griffin Referred To Contact Family Medicine Referral ID Status Reason Start Date Expiration Date Visits Re quested Visits Authorized [id number] Closed 11/10/2023 11/09/2024 1 1 Encounter Details Date Type Department Care Team (Latest Contact Info) Description 11/17/2023 3:00 PM CDT Comprehensive Visit Department of Family Medicine, [facility], in [place], [place] [address] [place] [address] Nelly Ch M.D. [address] [place] [address] Well Adult Examination Normal (Primary Dx); Screening Examination Skin Cancer; Cancer Lung Adenocarcinoma Personal History; Secondary Malignant Neoplasm Bone (HCC); Hypertension Essential Primary; Arthritis Social History Tobacco Use Types Packs/Day Years Used Date Smoking Tobacco: Former Cigarettes 1 30.2 1 993 - 08/10/2022 Smokeless Tobacco: Never Tobacco Cessation:Counseling Given: Not Answered Alcohol Use Standard Drinks/Week Comments Yes 0 (1 standard drink = 0.6 oz pur e alcohol) rare [facility] Utilities Answer Date Recorded In the past 12 months has th e [employer], gas, oil, or water [employer] threatened to shut off services in your [...] your living situation today? I have a [facility] place to live 11/17/2023 Sex and [...] 17 11/17/2023 3:03 PM CDT Oxygen Saturation - - Inhaled Oxygen Concentration - - Weight 48.9 kg (107 lb 14.6 oz) 11/17/2023 3:03 PM CDT Height 157 cm (5' 1.81) 11/17/2023 3:0 3 PM CDT Body Mass Index 19.86 11/17/2023 3:03 PM CDT documented in this encounter H&P Notes * Nelly Ch M.D. - 11/17/2023 3:00 PM CDT SUBJECTIVE CHIEF COMPLAINT / REASON FOR VISIT Gynecologic Exam (Would like to repeat pap from last year. Would like mole checked on abdomen.) HISTORY OF PRESENT ILLNESS Sandrine Deleon is a 63 y.o. 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 hypertension, melanoma, restless leg syndrome, who presents today for annual exam. Patient has a spot on her upper abdomen would like it to be checked. She has been followed by Oncology at [facility] for her cancer treatment. She has an upcoming PET scan ordered for follow-up. She has been receiving radiotherapy. She denies any other concerns today. She was a former smoker. She denies drinking alcohol or using any recreational drugs. She lives in a farm with her . 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 She enjoys having her grandkids around. REVIEW OF SYSTEMS REVIEW OF SYSTEMS Pertinent positive ROS are listed above in HPI. ALLERGIES Patient has no known allergies. Current Outpatient Medications: amLODIPine (NORVASC) 10 mg tablet, Take 1 tablet (10 mg total) by mouth daily., Disp: 90 tablet, Rfl: 3 cyclobenzaprine (FLEXERIL) 10 mg tablet, Take 1 tablet (10 mg total) by mouth at bedtime as needed for muscle spasms., Disp: 30 tablet, Rfl: 3 ondansetron (ZOFRAN) 8 mg tablet, Take 1 tablet (8 mg total) by mouth every 8 (eight) hours as needed for nausea or vomiting. 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 Patient is postmenopausal. FAMILY HISTORY Family History Problem Relation Name Age of Onset Colon cancer Mother Colon cancer Brother Diabetes mellitus type I Brother SOCIAL HISTORY Social History Socioeconomic History Marital status: Single Tobacco Use Smoking status: Former Current packs/day: 0.00 Average packs/day: 1 pack/day for 30.2 years (30.2 ttl pk-yrs) Types: Cigarettes Start date: 1992 Quit date: 08/10/2022 Years since quittin.2 Smokeless tobacco: Never Substance and Sexual Activity Alcohol use: Yes Comment: rare Drug use: Never Sexual activity: Yes Partners: Male OBJECTIVE BP 121/67 (BP Location: Right arm, Patient Position: Sitting, Cuff Size: Small) Comment: average of3 Pulse 61 Temp 36.3 ??C (Temporal) Resp 16 Ht 157 cm Wt 48.9 kg BMI 19.86 kg/m?? PHYSICAL EXAMINATION General: Alert, pleasant female appearing in no acute distress. Neuro: Oriented x 3, responds appropriately to questions and follows commands without difficulty. Pupils equal and reactive to light. Cranial nerves II-XII grossly intact. EOMs intact. Muscle tone and strength normal and equal bilaterally without weakness or involuntary movements. Sensation intact to light touch in all extremities. Head: Normocephalic, atraumatic. Eyes: Sclerae clear without injection, conjunctivae without drainage, erythema or matting. VIPIN. Ears: Normal auditory canals and external ears. Tympanic membranes pearly bilaterally. Nontender. Oropharynx: Moist and pink without exudate. Normal buccal mucosa. Dental hygiene adequate. Neck: Supple without lymphadenopathy. No thyromegaly or carotid bruits. Heart: Normal S1, S2 with regular rate and rhythm. No murmurs, rubs, or clicks heard. Lungs: Clear to auscultation bilaterally posteriorly without rhonchi, wheezes, or crackles. No cough on exam today. Respirations are easy and unlabored. Breasts: breasts appear normal, no suspicious masses, no skin or nipple changes or axillary nodes. Abdomen: Soft, nondistended, nontender to palpation without palpable masses or organomegaly. Genitourinary: External genitalia without erythema or lesions. Urethra normal. No prolapse. No lesions or masses. Vaginal mucosa well estrogenized and with normal physiologic discharge. Cervix pink and without discharge. Uterus anterior, midline, smooth and not enlarged. No adnexal masses or tenderness. Musculoskeletal: Back is straight and non-tender, full range of motion of upper and lower extremities. Feet: Good pedal pulses, no lesions, nail hygiene good. Extremities: No upper or lower extremity edema or cyanosis. Skin: Warm and dry without rashes on the visible areas. Psychiatric: Appropriate mood and affect. Makes good eye contact. Dressed appropriately. Contributes meaningfully to conversation. ASSESSMENT / PLAN #1 Well Adult Examination Normal - ThinPrep w/HPV Co-Test Screen - Lipid Panel; Future; Expected date: 11/17/2023 Preventive care discussed with the patient. Immunization updated. Will obtain Pap smear today. She had an abnormal Pap smear last September. Colonoscopy will be due in 2025. Mammogram will be done today.Monthly breast exam. Counseled about healthy diet and exercise. #2 Screening Examination Skin Cancer - Family Medicine - Dermatology consult (clinic); Future; Expected date: 11/17/2023 Patient has history of melanoma. She does have spot in her upper abdomen. Would like her to follow up with Dermatology for comprehensive skin exam. #3 Cancer Lung Adenocarcinoma Personal History #4 Secondary Malignant Neoplasm (HCC) Receiving radiation therapy. Followed by Oncology. #5 Hypertension Essential Primary Blood pressure well controlled on amlodipine 10 mg daily. #6 Arthritis Patient requested refill on Flexeril. She stated that it helped with her arthritis pain. Prescription sent to the pharmacy. Other orders - cyclobenzaprine (FLEXERIL) 10 mg tablet; Take 1 tablet (10 mg total) by mouth at bedtime as needed for muscle spasms., Starting 11/17/2023, Normal - Tdap: Qnffogi-lfiorxwqgl-olcxmhfgj pertussis vaccine (7 years and older) - PCV20: pneumococcal conjugate vaccine Nelly Ch M.D. documented in this encounter Plan of Treatment Upcoming Encounters Date Type Department Care Team (Late st Contact Info) Description 01/01/2024 2:00 PM CDT Appointment Department of Radiation Oncology in [place], [place] [address] [place] [address] Clemente Feng M.D. [address] [place] [address] Scheduled Referrals Name Type Priority Associated Diagnoses Orde r Schedule Family Medicine - Dermatology consult (clinic) Outpatient Referral Routine Screening Examination Skin Cancer Expected: 11/17/2023, Expires: 02/16/2025 documented as of this encounter Procedures Procedure Name Priority Date/Time Associated Diagnosis Comments THINPREP W/HPV CO-TEST SCREEN Routine 11/17/2023 3:33 PM CDT Well Adult Examination Normal HPV WITH GENOTYPING, PCR, THINPREP Routine 11/17/2023 3:33 PM CDT documented in this encounter Results * (ABNORMAL) Lipid Panel (11/17/2023 4:25 PM [...] CDT Nelly Ch M.D. LAB BLOOD ADD-ON [facility] [address] [address], [facility] in [place] [address] [place] [address] * HPV with Genotyping, PCR, ThinPrep (11/17/2023 [...] correlated with patient's history, clinical presentation, and SENIOR ACCOUNTING ANALYST cytology report. 11/17/2023 3:33 PM CDT 11/20/2023 7:40 AM CDT Nelly Ch M.D. LAB MICROBIOLOGY - G ENERAL ORDERABLES [facility] [address] [place] [address], [facility] [address] [address] * ThinPrep w/HPV Co-Test Screen (11/17/2023 3:33 [...] PAP PATHDX ORDER ALESIA Performing Organization Address [facility]/ZIP Co de Phone Number [facility] [address] [place] [address], [facility] [address] [facility] [address] [place] [address] documented in this encounter Visit Diagnoses Diagnosis Well Adult Examination Normal- Primary Screening Examination Skin Cancer Cancer Lung Adenocarcinoma Personal History Secondary Malignant Neoplasm Bone (HCC) Hypertension Essential Primary Arthritis documented in this encounter Care Teams Dumper [employer] Relationship Specialty Start Date End Date Suhail Burrows M.B.B.S., M.D. [address] [place] [phone] PCP - General Family Medicine 06/09/22 documented as of this encounter
--- OUTSIDE RECORDS SUMMARY | 2023-12-26 14:12 | XMS_ITS | Encounter Summary ---
Author Organization [facility] Address [address] [place] [address] Care Team Providers Care Teacher Aide Name Role Phone Suhail Burrows M.D. 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 [address] [place] [address] [facility] Referral ID Status Reason Start Date Expiration Date Visits Re quested Visits Authorized [id number] Closed 09/18/2023 08/29/2024 5 5 Encounter Details Date Type Department Care Team (Latest Contact Info) Description 09/20/2023 2:46 PM CDT - 09/20/2023 11:59 PM CDT Hospital Encounter Department of Radiation Oncology in [place], [place] [address] [place] [phone] Clemente Feng M.D. [address] [place] [phone] Discharge Disposition: Home or Self Care Social [...] CDT Appointment Department of Radiation Oncology in [place], [place] [address] [place] [phone] Clemente Feng M.D. [address] [place] [address] documented as of this encounter Visit Diagnoses Not on filedocumented in this encounter Care Teams Teacher Aide Relationship Specialty Start Date End Date Suhail Burrows M.B.B.S., [place]. [address] [place] [phone] PCP - General Family Medicine 06/09/22 documented as of this encounter
--- OUTSIDE RECORDS SUMMARY | 2023-12-26 14:12 | XMS_ITS | Encounter Summary ---
Author Organization [facility] Address [address] [place] [address] Care Team Providers Care Fiscal Agent Name Role Phone Suhail Burrows M.D. Primary Care P dena Reason for Referral * Outpatient (Routine) - Authorized Specialty Diagnoses / Procedures Referred By Contac t Referred To Contact Dermatology Arina Lindsay APRN, C.N.P. [address] [phone] [facility] Referral ID Status Reason Start Date Expiration Date V isits Requested Visits Authorized [id number] Authorized 11/21/2023 05/22/2025 1 1 Scheduling Instructions FSE h/o MM and AK's * - Incomplete Specialty Diagnoses / Procedures Referred By Contac t Referred To Contact Procedures Lesion Destruction Arina Lindsay APRN, C.N.P. [address] [place] [phone] Referral ID Status Reason Start Date Expiration Date V isits Requested Visits Authorized [id number] Incomplete 11/21/2023 11/20/2024 1 1 Reason for Visit * Reason Comments Skin Check * Outpatient (Routine) - Closed Specialty Diagnoses / Procedures Referred By Contac t Referred To Contact Family Medicine Diagnoses Screening Examination Skin Cancer Nelly Ch M.D. [address] [facility] [place] [address] [facility] Region Referral ID Status Reason Start Date Expiration Date Visits Re quested Visits Authorized [id number] Closed 11/17/2023 05/18/2025 1 1 Encounter Details Date Type Department Care Team (Latest Contact Info) Description 11/21/2023 9:00 AM CDT Comprehensive Visit Department of Family Medicine, [facility], in [place], [place] [address] [place] [address] Arina Lindsay APRN, C.N.P. [address] [place] [address] Keratosis Actinic (Primary Dx); Screening Examination Skin Cancer; Melanoma Of Skin Cancer Personal History; Keratosis Seborrheic Inflamed; Dermatoheliosis; Nevi Multiple Social History Tobacco Use Types Packs/Day Years Used Date Smoking Tobacco: Former Cigarettes 1 30.2 1 993 - 08/10/2022 Smokeless Tobacco: Never Tobacco Cessation:Counseling Given: Not Answered Alcohol Use Standard Drinks/Week Comments Yes 0 (1 standard drink = 0.6 oz pur e alcohol) rare [facility] Utilities Answer Date Recorded In the past 12 months has e electric, gas, oil, or water [employer] threatened to shut off services in your [...] your living situation today? I have a [facility] place to live 11/17/2023 Sex and Gender Information Value Date Recorded Sex Assigned at Female 11/17/2023 2:56 PM CDT Gender Identity Female 11/17/2023 2:56 PM CDT Sexual Orientation Straight 11/17/2023 2: 56 PM CDT documented as of this encounter H&P Notes * Arina Lindsay, MARIA G, C.N.P. - 11/21/2023 9:00 AM CDT SUBJECTIVE CHIEF COMPLAINT/REASON FOR VISIT Skin cancer screening examination. HISTORY OF PRESENT ILLNESS NOTE: Patient was made aware that I am trained as a Family Medicine Specialist and have a special interest in Dermatology; however, I am not a Voting Machine Repairer. Anything beyond the scope of my abilitiesor comfort level will be referred to a Voting Machine Repairer of their choosing. Sandrine is a very pleasant 63 y.o. female who presents for a full skin examination. she has a history of malignant melanoma over 20 years ago. Pathology report is not available, but patient reports that she had lymph node biopsies which were negative. She has an irritated lesion on her abdomen that s he would like removed. Per Nursing Notes: Reason for visit: FSE More details of current skin concern: spot on abd Any other skin concerns: Has the patient previously been a dermatology patient? Yes - Is patient referred by another provider or self referred? Returning patient Personal history of skin cancer? (include details) Yes - Pt said MM over 20 years ago Significant history of sun exposure? Yes - Two or more blistering sunburns before age 17? Yes - History of tanning bed use? Yes - Personal history of other skin problems? No Family history of skin cancer? No Family history of other significant skin problems? No REVIEW OF SYSTEMS Constitutional, integumentary, and allergic/immunologic Review of Systems is otherwise negative except as otherwise remarked above or below. CURRENT MEDICATIONS Current Outpatient Medications Medication Sig Dispense Refill cyclobenzaprine (FLEXERIL) 10 mg tablet Take 1 tablet (10 mg total) by mouth at bedtime as needed for muscle spasms. 30 tablet 3 ondansetron (ZOFRAN) 8 mg tablet Take 1 tablet (8 mg total) by mouth every 8 (eight) hours as needed for nausea or vomiting. Take about 45 minutes before each radiation treatment. 10 tablet 0 amLODIPine (NORVASC) 10 mg tablet Take 1 tablet (10 mg total) by mouth daily. 90 tablet 3 No current facility-administered medications for this visit. ALLERGIES/CONTRAINDICATIONS No Known Allergies OBJECTIVE PHYSICAL EXAMINATION General: Alert and orientated to person, place, and time. Well-nourished and groomed, in no acute distress. Skin: A full skin examination was performed of the scalp, head, neck, face, hair, chest, abdomen, back, undergarments area, and 4 extremities including palms, soles, digits, and nails. Skin inspectedand palpated where appropriate. Eyes and lips, including vermilion lips, also examined. There are multiple nevi of the chest, abdomen, back, and extremities of benign appearance with moderately sun-damaged skin. On the right forearm/antecubital area there is a well-healed scar without pigmentation,nodularity, or evidence of recurrent malignant melanoma. On the mid abdomen there is a brown, hyperkeratotic, stuck on appearing papule consistent with seborrheic keratosis. On the forehead, nose, and upper chest there are a total of 3 red scaly 3-4 mm papules consistent with actinic keratoses. ASSESSMENT / PLAN #1 Screening Examination Skin Cancer #2 Melanoma Of Skin Cancer Personal History A skin cancer screening was performed of the areas described above. No evidence of recurrent melanoma today. Due to the history of melanoma, there is an increased risk of an additional primary cutaneous melanoma in the future as compared to patients without this characteristic; therefore, recommended monthly skin self-examinations with the aid of another trusted individual for assistance to evaluate for new, changing, symptomatic or otherwise worrisome lesions of the skin as these can be signs of skin cancer. ABCDEs of melanoma discussed. Photoprotection was advised and strategies identified to reduce risk of skin cancer. Due to the personal history of melanoma, first-degree relatives are at an increased risk of melanoma. We recommend informing first-degree family members or parents/guardians (if a minor) of this risk and to discuss skin cancer screening options with their doctor. Otherwise, return to Dermatology in 12 months for a full head-to-toe skin cancer screening. #3 Keratosis Actinic x3 We discussed the premalignant nature of lesions and after discussing risks, benefits and alternatives of treatment, patient consented to destruction with cryotherapy. These premalignant lesions were destroyed with liquid nitrogen cryotherapy today. Post care instructions provided to patient, and patient advised to follow-up if these areas fail to improve or worsen. #4 Keratosis Seborrheic irritated The benign nature of this lesion(s) was discussed with the patient. Given the irritated nature of this lesion(s), its treatment is medically indicated. We treated a total of 1 lesion(s) with one 20-second freeze-thaw cycle of liquid nitrogen cryotherapy. The patient tolerated the procedure well. Aftercare instructions were provided in written and verbal form to the patient. Should any of these lesions recur, the patient should return for further evaluation. #5 Dermatoheliosis Sun protection and sun avoidance were reviewed with the patient. Educational materials were provided regarding skin self-examination, the warning signs and symptoms of skin cancer, and the proper useof sunscreen SPF 30 or higher. I would recommend a full skin cancer screening examination with an appropriately trained clinician every year. #6 Nevi Multiple There are multiple nevi of the skin of banal appearance. Recommend observation and monthly skin self-examinations observing for new, changing, symptomatic or otherwise worrisome lesions as these can be signs of skin cancer. PATIENT EDUCATION: Ready to learn, no apparent learning barriers [...] CDT Appointment Department of Radiation Oncology in [place], [place] [address] [place] [address] Clemente Feng M.D. [address] [place] [address] Scheduled Referrals Name Type Priority Associated Diagnoses Order Schedule Dermatology office visit (clinic) Outpatient Referral Routine Expected: 11/20/2024 (Approximate), Expires: 02/20/2025 documented as of this encounter Procedures Procedure Name Priority Date/Time Associated Diagnosis Comments LESION DESTRUCTION Routine 11/21/2023 9: 13 AM CDT Keratosis Actinic documented in this encounter Results * Lesion Destruction (11/21/2023 9:13 AM CDT) Narrative Bouchra Gregory, R.M.A. - 11/21/2023 9:13 AM CDT Complexity: [...] in this encounter Visit Diagnoses Diagnosis Keratosis Actinic- Primary Screening Examination Skin Cancer Melanoma Of Skin Cancer Personal History Keratosis Seborrheic Inflamed Dermatoheliosis Nevi Multiple documented in this encounter Care Teams Fiscal Agent Relationship Specialty Start Date End Date Suhail Burrows M.B.B.S., MChika. [address] [place] [phone] PCP - General Family Medicine 06/09/22 documented as of this encounter
--- OUTSIDE RECORDS SUMMARY | 2023-12-26 14:12 | XMS_ITS | Encounter Summary ---
Author Organization [facility] Address [address] [place] [address] Care Team Providers Care Blade Groover Name Role Phone Suhail Burrows M.D. Primary Care Allan fernandes Encounter Details Date Type Department Care Team (Latest Contact Info) Description 11/17/2023 4:19 PM CDT - 11/17/2023 11:59 PM CDT Hospital Encounter Department of Laboratory Medicine in [place], [place] [address] [place] [address] Nelly Ch M.D. [address] [place] [phone] Well Adult Examination Normal Discharge Disposition: Home or Self Care Social History Tobacco Use Types Packs/Day Years Used Date Smoking Tobacco: Former Cigarettes 1 30.2 1 993 - 08/10/2022 Smokeless Tobacco: Never Alcohol Use Standard Drinks/Week Comments Yes 0 (1 standard drink = 0.6 oz pur e alcohol) rare [facility] Utilities Answer Date Recorded In the past 12 months has [employer], gas, oil, or water [employer] threatened to shut off services in your [...] your living situation today? I have a [facility] place to live 11/17/2023 Sex and Gender Information Value Date Recorded Sex Assigned at Female 11/17/2023 2:56 PM CDT Gender Identity Female 11/17/2023 2:56 PM CDT Sexual Orientation Straight 11/17/2023 2: 56 PM CDT documented as of this encounter Medications at Time of Discharge Medication Sig Dispensed Refills Start Date End Date cyclobenzaprine (FLEXERIL) 10 mg tablet Take 1 tablet (10 mg total) by mouth at bedtime as needed for muscle spasms. 30 tablet 3 11/17/2023 ondansetron (ZOFRAN) 8 mg tablet Take 1 [...] CDT Appointment Department of Radiation Oncology in [place], [place] [address] [place] [phone] Clemente Feng M.D. [address] [place] [address] documented as of this encounter Procedures Procedure Name Priority Date/Time Associated Diagnosis Comments LIPID PANEL, S Routine 11/17/2023 4:25 PM CDT Well Adult Examination Normal documented in this encounter Results * (ABNORMAL) [...] CDT Nelly Ch M.D. LAB BLOOD ADD-ON [facility] [address] [place] [address], [facility] in [place] [address] [place] [address] documented in this encounter Visit Diagnoses Diagnosis Well Adult Examination Normal documented in this encounter Care Teams Blade Groover Relationship Specialty Start Date End Date Suhail Burrows M.B.B.S., Beronica. [address] [place] [phone] PCP - General Family Medicine 06/09/22 documented as of this encounter
--- OUTSIDE RECORDS SUMMARY | 2023-12-26 14:12 | XMS_ITS | Encounter Summary ---
Author Organization [facility] Address [address] [place] [address] Care Team Providers Care Rig Builder Helper Name Role Phone Suhail Burrows M.D. 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 [address] [place] [address] [facility] Referral ID Status Reason Start Date Expiration Date Visits Re quested Visits Authorized [id number] Closed 09/18/2023 08/29/2024 5 5 Encounter Details Date Type Department Care Team (Latest Contact Info) Description 09/26/2023 2:45 PM CDT - 09/26/2023 3:59 PM CDT Hospital Encounter Department of Radiation Oncology in [place], [place] [address] [place] [phone] Clemente Feng M.D. [address] [place] [phone] Discharge Disposition: Home or Self Care Social [...] CDT Appointment Department of Radiation Oncology in [place], [place] [address] [place] [address] Clemente Feng M.D. [address] [place] [address] documented as of this encounter Visit Diagnoses Not on filedocumented in this encounter Care Teams Rig Builder Helper Relationship Specialty Start Date End Date Suhail Burrows M.B.B.S., Beronica. [address] [place] [phone] PCP - General Family Medicine 06/09/22 documented as of this encounter
--- OUTSIDE RECORDS SUMMARY | 2023-12-26 14:12 | XMS_ITS ---
Author Organization [facility] Address [address] [place] [address] Care Team Providers Care Wound Care Coordinator Name Role Phone Suhail Burrows M.D. [...] Undetermined Significanc e Cervix 08/29/2013 Overview: 07/08/16: Tennga: GROVER 1 08/03/16: LEEP: Negative, Ecto: Positive for atypia suggestive of HPV effect Endo: Free of atypia and GROVER 12/21/17: LSIL/HPV Positive Plan: Colposcopy Current Oncology Plans No current plan information found. Past Plans No past plan information found. Radiation Treatments * Plan Last Treated On Elapsed Days Fractions Treated Prescribed Fraction Dose Prescribed Total Dose [id number] 09/26/2023 6 5 of 5 500 cGy 2,500 cGy [id number] 09/26/2023 6 5 of 5 500 cGy 2,500 cGy [id number] 05/24/2023 6 5 of 5 400 cGy 2,000 cGy [id number] 03/08/2023 0 1 of 1 800 cGy 800 cGy [id number] 09/09/2022 11 10 of 10 300 cGy 3,000 cG y Reference Point Last Treated On Elapsed Days Session Dose Total Dose [id number] 09/26/2023 6 500 cGy 2,500 cGy [id number] 09/26/2023 6 500 cGy 2,500 cGy [id number] 05/24/2023 6 400 cGy 2,000 cGy [id number] 03/08/2023 0 800 cGy 800 cGy [id number] 09/09/2022 11 300 cGy 3,000 cGy Resolved Problems Problem Noted Date Diagnosed Date Resolved Date Elevated Blood Pressure Without Hypertension 2 06/20/2022 Melanoma Skin 04/01/2010 08/01/2022 Overview: Right arm 1999
--- OUTSIDE RECORDS SUMMARY | 2023-12-26 14:12 | XMS_ITS | Encounter Summary ---
Author Organization [facility] Address [address] [place] [address] Care Team Providers Care Washer Carcass Name Role Phone Suhail Burrows M.D. Primary Care P dena Encounter Details Date Type Department Care Team (Late st Contact Info) Description 09/26/2023 Documentation Department of Radiation Oncology in [place], [place] [address] [place] [phone] Clemente Feng M.D. [address] [place] [phone] Social History Tobacco Use Types Packs/Day Years [...] Completion Notes - Princess Ruiz R.N. - 09/26/2023 11:59 PM CDT DIAGNOSIS: 1. 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 ([phone]) Treatment Intent: Palliative Concomitant Therapy: She remains on Keytruda every 6 weeks under the care of Dr. Julian. Single Plan Treatment Course: 4xMultiSite Plan ID Fractions Dose / Fraction (cGy) Dose Treated (cGy) Dose Planned (cGy) First Treatment Last Treatment Elapsed Days [id number] 5 / 5 500 2500 2500 09/20/2023 09/26/2023 6 [id number] 5 / 5 500 2500 2500 09/20/2023 [...] brain MRI that will be ordered at [place]. Patient will continue ongoing follow with Dr. Julian at [facility]. Signed by: Princess Ruiz R.N., 10/06/2023 11:27 AM CDT [facility] [address] [place] [address] documented in this encounter Plan of Treatment Upcoming Encounters Date Type Department Care Team (Late st Contact Info) Description 01/01/2024 2:00 PM CDT Appointment Department of Radiation Oncology in [address] [phone] Clemente Feng M.D. 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 [address] [place] [phone] PCP - General Family Medicine 06/09/22 documented as of this encounter
--- OUTSIDE RECORDS SUMMARY | 2023-12-26 14:12 | XMS_ITS | Encounter Summary ---
Author Organization [facility] Address [address] [place] [address] Care Team Providers Care Cmo Name Role Phone Suhail Burrows M.D. 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 [address] [place] [address] [facility] Region Referral ID Status Reason Start Date Expiration Date Visits Re quested Visits Authorized [id number] Closed 10/11/2023 10/10/2024 1 1 Encounter Details Date Type Department Care Team (Latest Contact Info) Description 12/26/2023 8:37 AM CDT Hospital Encounter Department of Radiology in [place], [place] [address] [place] [phone] Lakisha Julian M.D. 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 I have a [facility] [place] place to live 11/17/2023 Sex and Gender Information Value Date Recorded Sex Assigned at Female 11/17/2023 2:56 PM CDT Gender Identity Female 11/17/2023 2:56 PM CDT Sexual Orientation Straight 11/17/2023 2: 56 PM CDT documented as of this encounter Plan of Treatment Upcoming Encounters Date Type Department Care Team (Late st Contact Info) Description 01/01/2024 2:00 PM CDT Appointment Department of Radiation Oncology in [place], [place] [address] [place] [address] Clemente Feng M.D. [address] [place] [address] documented as of this encounter Procedures Procedure [...] RADIOPHARMACEUTICAL/MEDS: Route: intravenous fludeoxyglucose F 18 injection SNF (FDG F-18),13 millicurie Procedure Note Yousif Velasco [...] RADIOPHARMACEUTICAL/MEDS: Route: intravenous fludeoxyglucose F 18 injection SNF (FDG F-18),13 millicurie IMPRESSION: 1. Mixed disease response with progressed bilateral external iliaclymphadenopathy. Remaining sites of metastatic disease are stable todecreased as detailed above. 2. Stable dilation of the ascending thoracic aorta. 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 [address] [place] [address] [place] [address] PCP - General Family Medicine 06/09/22 documented as of this encounter
--- OUTSIDE RECORDS SUMMARY | 2023-12-26 14:12 | XMS_ITS ---
Author Organization [facility] Address [address] [place] [address] Care Team Providers Care Recruiter Coordinator Name Role Phone Unavailable Unavailable Unavailable Surgery Details Not on file Complications Check Surgery Details section. Procedure Estimated Blood Loss Check Surgery Details section. Procedure Findings Check Surgery Details section. Procedure Specimens Taken Check Surgery Details section.
--- OUTSIDE RECORDS SUMMARY | 2023-12-26 14:12 | XMS_ITS | Encounter Summary ---
Author Organization [facility] Address [address] [place] [address] Care Team Providers Care Application Support Consultant Name Role Phone Suhail Burrows M.D. Primary Care P dena Reason for Referral * Outpatient (Routine) - Closed Specialty Diagnoses / Procedures Referred By Yelena griffin Referred To Contact Diagnoses Screening Mammogram Breast Cancer Procedures BI Breast Screening Bilateral with Tomosynthesis Suhail Burrows M.B.B.S., M.D. [address] [place] [address] [facility] Region Referral ID Status Reason Start Date Expiration Date Visits Re quested Visits Authorized [id number] Closed 10/17/2023 10/16/2024 1 1 Reason for Visit * Outpatient (Routine) - Closed Specialty Diagnoses / Procedures Referred By Yelena griffin Referred To Contact Diagnoses Screening Mammogram Breast Cancer Procedures BI Breast Screening Bilateral with Tomosynthesis Suhail Burrows M.B.B.S., M.D. [address] [place] [address] [facility] Region Referral ID Status Reason Start Date Expiration Date Visits Re quested Visits Authorized [id number] Closed 10/17/2023 10/16/2024 1 1 Encounter Details Date Type Department Care Team (Latest Contact Info) Description 11/17/2023 4:00 PM CDT - 11/17/2023 4:18 PM CDT Hospital Encounter Department of Radiology in [place], [place] [address] [place] [address] Suhail Burrows M.B.B.S., M.D. [address] [facility] [place] [address] Screening Mammogram Breast Cancer Discharge Disposition: Home or Self Care Social History Tobacco Use Types Packs/Day Years Used Date Smoking Tobacco: Former Cigarettes 1 30.2 1 993 - 08/10/2022 Smokeless Tobacco: Never Alcohol Use Standard Drinks/Week Comments Yes 0 (1 standard drink = 0.6 oz pur e alcohol) rare [facility] Utilities Answer Date Recorded In the past 12 months has e electric, gas, oil, or water [employer] threatened to shut off services in your [...] Answer Date Recorded Dental: Regular Dentist No 06/07/20 24 Employment Answer Date Recorded Employment status Retired 11/17/2023 Housing Stability Answer Date Recorded What is your living situation today? I have a [facility] place to live 11/17/2023 Sex and [...] by mouth daily. 90 tablet 3 09/21/2022 cyclobenzaprine (FLEXERIL) 10 mg tablet Take 1 [...] CDT Appointment Department of Radiation Oncology in [place], [place] [address] [place] [address] Clemente Feng M.D. [address] [place] [address] documented as of this encounter Procedures Procedure Name Priority Date/Time Associated Diagnosis Comments BI BREAST SCREENING BILATERAL WITH TOMOSYNTHESIS RAD - Routine (most inpatients and all outpatients) 11/17/2023 4:19 PM CDT Screening Mammogram Breast Cancer documented [...] Cancer documented in this encounter Care Teams Application Support Consultant Relationship Specialty Start Date End Date Suhail Burrows M.B.B.S., M.D. [address] [place] [phone] PCP - General Family Medicine 06/09/22 documented as of this encounter
--- OUTSIDE RECORDS SUMMARY | 2023-12-26 14:12 | XMS_ITS | Encounter Summary ---
Author Organization [facility] Address [address] [place] [address] Care Team Providers Care Lead Miner Blasting Name Role Phone Suhail Burrows M.D. 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 [address] [place] [address] [facility] Region Referral ID Status Reason Start Date Expiration Date Visits Re quested Visits Authorized [id number] Closed 10/11/2023 10/10/2024 1 1 Encounter Details Date Type Department Care Team (Late st Contact Info) Description 10/11/2023 Orders Only Department of Oncology in [place], [place] [address] [place] [phone] Lakisha Julian M.D. [address] [place] [phone] Malignant Neoplasm Of Lung Lower Lobe Or [...] CDT Appointment Department of Radiation Oncology in [place], [place] [address] [place] [address] Clemente Feng M.D. [address] [place] [address] documented as of this encounter Results * [...] RADIOPHARMACEUTICAL/MEDS: Route: intravenous fludeoxyglucose F 18 injection SENIOR CARE (FDG F-18),13 millicurie Procedure Note Yousif Velasco [...] RADIOPHARMACEUTICAL/MEDS: Route: intravenous fludeoxyglucose F 18 injection SENIOR CARE (FDG F-18),13 millicurie IMPRESSION: 1. Mixed disease response with progressed bilateral external iliaclymphadenopathy. Remaining sites of metastatic disease are stable todecreased as detailed above. 2. Stable dilation of the ascending thoracic aorta. Lakisha Julian M.D. 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 [address] [place] [phone] PCP - General Family Medicine 06/09/22 documented as of this encounter
--- OUTSIDE RECORDS SUMMARY | 2023-12-26 14:12 | XMS_ITS | Encounter Summary ---
Author Organization [facility] Address [address] [place] [address] Care Team Providers Care Coating Machine Operator Name Role Phone Suhail Burrows M.D. 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 [address] [place] [address] [facility] Referral ID Status Reason Start Date Expiration Date Visits Re quested Visits Authorized [id number] Closed 09/18/2023 08/29/2024 5 5 Encounter Details Date Type Department Care Team (Latest Contact Info) Description 09/25/2023 2:50 PM CDT - 09/25/2023 11:59 PM CDT Hospital Encounter Department of Radiation Oncology in [place], [place] [address] [place] [address] Clemente Feng M.D. [address] [place] [phone] Discharge Disposition: Home or Self Care Social [...] CDT Appointment Department of Radiation Oncology in [place], [place] [address] [place] [phone] Clemente Feng M.D. [address] [place] [address] documented as of this encounter Visit Diagnoses Not on filedocumented in this encounter Care Teams Coating Machine Operator Relationship Specialty Start Date End Date Suhail Burrows M.B.B.S., Beronica. [address] [place] [phone] PCP - General Family Medicine 06/09/22 documented as of this encounter
--- OUTSIDE RECORDS SUMMARY | 2023-12-26 14:12 | XMS_ITS | Encounter Summary ---
Author Organization [facility] Address [address] [place] [address] Care Team Providers Care Middle School Band Teacher Name Role Phone Suhail Burrows M.D. 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 [address] [place] [address] [facility] Referral ID Status Reason Start Date Expiration Date Visits Re quested Visits Authorized [id number] Closed 09/18/2023 08/29/2024 5 5 Encounter Details Date Type Department Care Team (Latest Contact Info) Description 09/21/2023 2:50 PM CDT - 09/21/2023 11:59 PM CDT Hospital Encounter Department of Radiation Oncology in [place], [place] [address] [place] [phone] Clemente Feng M.D. [address] [place] [phone] Discharge Disposition: Home or Self Care Social [...] CDT Appointment Department of Radiation Oncology in [place], [place] [address] [place] [address] Clemente Feng M.D. [address] [place] [address] documented as of this encounter Visit Diagnoses Not on filedocumented in this encounter Care Teams Middle School Band Teacher Relationship Specialty Start Date End Date Suhail Burrows M.B.B.S., Beronica. [address] [place] [phone] PCP - General Family Medicine 06/09/22 documented as of this encounter
--- OUTSIDE RECORDS SUMMARY | 2023-12-26 14:12 | XMS_ITS | Referral Summary ---
Author Organization [facility] Address [address] [place] [address] Care Team Providers Care Attendant Coin Operated Laundry Name Role Phone Suhail Burrows M.D. Primary Care Allan fernandes Source Comments Patient records contain information from all sites at [facility]. For routine questions regarding patient records, call [phone] during business hours, M-F 8:00 AM - 5:00 PM Central Time. Record requests for emergency care only can be directed to [phone] at any time.[facility] Encounters Date Type Department Care Team Description 12/26/2023 8:37 AM CDT Hospital Encounter Department of Radiology in [place], [place] [address] [address] Lakisha Julian M.D. 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 Results 11/21/2023 9:00 AM CDT Comprehensive Visit Department of Family Medicine, [facility], in [place], [place] [address] [place] [address] Arina Lindsay APRN, C.N.PHector Keratosis Actinic (Primary Dx); Screening Examination Skin Cancer; Melanoma Of Skin Cancer Personal History; Keratosis Seborrheic Inflamed; Dermatoheliosis; Nevi Multiple 11/20/2023 Clinical Communication Department of Family Medicine, [facility], in [place], [place] [address] [place] [address] Suhail Burrows M.B.B.S., M.D. Results 11/17/2023 4:19 PM CDT - 11/17/2023 11:59 PM CDT Hospital Encounter Department of Laboratory Medicine in [place], [place] [address] [place] [address] Nelly Ch M.D. Well Adult Examination Normal Discharge Disposition: Home or Self Care 11/17/2023 3:00 PM CDT Comprehensive Visit Department of Family Medicine, [facility], in [place], [place] [address] [place] [address] Nelly Ch M.D. Well Adult Examination Normal (Primary Dx); Screening Examination Skin Cancer; Cancer Lung Adenocarcinoma Personal History; Secondary Malignant Neoplasm Bone (HCC); Hypertension Essential Primary; Arthritis 11/17/2023 4:00 PM CDT - 11/17/2023 4:18 PM CDT Hospital Encounter Department of Radiology in [place], [place] [address] [place] [address] Suhail Burrows M.B.BHectorSIvet Young Screening Mammogram Breast Cancer Discharge Disposition: Home or Self Care 10/17/2023 Orders Only [facility] Suhail Burrows M.B.BIvet Corral Screening Mammogram Breast Cancer 10/11/2023 Orders Only Department of Oncology in [place], [place] [address] [place] [phone] Lakisha Julian M.D. 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 Secondary Malignant Neoplasm Brain (HCC) (Primary Dx) 09/26/2023 Documentation Department of Radiation Oncology in [address] [address] Clemente Feng M.D. 09/26/2023 4:00 PM CDT - 09/26/2023 11:59 PM CDT Hospital Encounter Department of Radiation Oncology in [address] [address] Clemente Feng M.D. Retterath, Chelsey A, R.N. 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 Discharge Disposition: Home or Self Care from [...] Undetermined Significanc e Cervix 08/29/2013 Overview: 07/08/16: [place]: GROVER 1 08/03/16: LEEP: Negative, Ecto: Positive [...] = 0.6 oz pur e alcohol) rare [facility] Utilities Answer Date Recorded In the past 12 months has e Physician Referral Network (PRN), gas, oil, or water [employer] threatened to shut off services in your [...] living situation today? I have a [facility] place to live 11/17/2023 Sex and Gender [...] Oxygen Saturation 92% 08/08/2022 10: 30 AM MODEL DRESSER Inhaled Oxygen Concentration - - Weight 48.9 kg (107 lb 14.6 oz) 11/17/2023 3:03 PM CDT Height 157 cm (5' 1.81) 11/17/2023 3:0 3 PM CDT Body Mass Index 19.86 11/17/2023 3:03 PM CDT Plan of Treatment Upcoming Encounters Date Type Department Care Team (Late st Contact Info) Description 01/01/2024 2:00 PM CDT Appointment Department of Radiation Oncology in [place], [place] [address] [place] [address] Clemente Feng M.D. [address] [place] [address] Procedures Procedure Name Priority Date/Time Associated Diagnosis [...] HEMOGLOBIN A1C, B Routine 08/08/2023 11:26 AM MODEL DRESSER Fatigue CT CHEST WITH IV CONTRAST RAD - Routine (most inpatients and all outpatients) 07/05/2022 8:01 AM MODEL DRESSER Nodule Pulmonary from Last 3 Months or [...] RADIOPHARMACEUTICAL/MEDS: Route: intravenous fludeoxyglucose F 18 injection CARE HOME (FDG F-18),13 millicurie Procedure Note Yousif Velasco [...] RADIOPHARMACEUTICAL/MEDS: Route: intravenous fludeoxyglucose F 18 injection CARE HOME (FDG F-18),13 millicurie IMPRESSION: 1. Mixed disease response with progressed bilateral external iliaclymphadenopathy. Remaining sites of metastatic disease are stable todecreased as detailed above. 2. Stable dilation of the ascending thoracic aorta. Lakisha Julian M.D. [facility] [place] PROCEDURES * Lesion Destruction (11/21/2023 9:13 AM CDT) Narrative Bouchra Gregory R.MRay - 11/21/2023 9:13 AM CDT Complexity: simple [...] CDT Nelly Ch M.D. LAB BLOOD ADD-ON [facility] [address] [place] [address], [facility] in [place] [address], [place] [address] * BI Breast Screening Bilateral with Tomosynthesis [...] PAP PATHDX ORDER ALESIA Performing Organization Address City/[facility]/ZIP Co de Phone Number [facility] [address] [place] [address], [facility] HKCY [address] [address] * HPV with Genotyping, PCR, ThinPrep (11/17/2023 [...] correlated with patient's history, clinical presentation, and CONTINUOUS PROCESS ROTARY DRUM TANNER cytology report. 11/17/2023 3:33 PM CDT 11/20/2023 7:40 AM CDT Nelly Ch M.D. LAB MICROBIOLOGY - G ENERAL ORDERABLES Performing Organization Address City/[facility]/ZIP Co de Phone Number [facility] [address] [place] [address], [facility] MKTO [address] [address] * MR head/brain wo/w con-Outside MR Neuro [...] Not In System IMG MRI PROCEDURE S IIID NA * Aria Course Complete Treatment Information (09/26/2023 3:21 PM CDT) Course ID [id number] te GAMING ARIA Course Start Date 4 10:56 CDT GAMING ARIA Course End Date 4 13:57 CDT GAMING ARIA First Treatment Date 4 15:21 CDT GAMING ARIA Last Treatment Date 4 15:21 CDT GAMING ARIA Treatment Elapsed Days 6 GAMING ARIA Reference Point [id number]_ Iliac GAMING ARIA Dosage Given to Date cGy 2500 GAMING ARIA Reference Point [id number]_ Abd GAMING ARIA Dosage Given to Date cGy 2500 GAMING ARIA Plan ID [id number] GAMING ARIA Fractions Treated to Date 5 GAMING ARIA Planned Total Fractions 5 GAMING ARIA Prescribed Dose Per Fraction 500 GAMING ARIA Prescription Dose in cGy 2500 GAMING ARIA Plan Primary Reference Point [id number]_ Iliac GAMING ARIA Plan ID [id number] GAMING ARIA Fractions Treated to Date 5 GAMING ARIA Planned Total Fractions 5 GAMING ARIA Prescribed Dose Per Fraction 500 GAMING ARIA Prescription Dose in cGy 2500 GAMING ARIA Plan Primary Reference Point [id number]_ Abd GAMING ARIA 09/26/2023 3:21 PM CDT Provider Not In System RADIATION ONCOLOG Y ORDERABLES GAMING AUGUSTIN na * Aria Daily Treatment Information (09/26/2023 3:21 PM CDT) Course ID [id number] te GAMING ARIA Course Start Date 4 10:56 CDT GAMING ARIA First Treatment Date 4 15:21 CDT GAMING ARIA Last Treatment Date 4 15:21 CDT GAMING ARIA Treatment Elapsed Days 6 GAMING ARIA Reference Point [id number]_ Iliac GAMING ARIA Dosage Given to Date cGy 2500 GAMING ARIA Session Dosage Given 500 GAMING ARIA Reference Point [id number]_ Abd GAMING ARIA Dosage Given to Date cGy 2500 GAMING ARIA Session Dosage Given 500 GAMING ARIA Plan ID [id number] GAMING ARIA Fractions Treated to Date 5 GAMING ARIA Planned Total Fractions 5 GAMING ARIA Prescribed Dose Per Fraction 500 GAMING ARIA Prescription Dose in cGy 2500 GAMING ARIA Plan Primary Reference Point [id number]_ Iliac GAMING ARIA Plan ID [id number] GAMING ARIA Fractions Treated to Date 5 GAMING ARIA Planned Total Fractions 5 GAMING ARIA Prescribed Dose Per Fraction 500 GAMING ARIA Prescription Dose in cGy 2500 GAMING ARIA Plan Primary Reference Point [id number]_ Abd GAMING ARIA 09/26/2023 3:21 PM CDT Provider Not In System RADIATION ONCOLOG Y ORDERABLES AMBERLY RUFFIN na * Hemoglobin A1c (08/08/2023 11:26 AM MODEL DRESSER) Hemoglobin A1c, B 5.6 4.2 - 5.6 % 08/08/2023 12:50 PM MODEL DRESSER FRANCIS Blood (Blood, Venous) 08/08/2023 11:26 AM MODEL DRESSER 08/08/2023 11:32 AM MODEL DRESSER Tomer Hinson M.D. LAB BLOOD ADD-ON [facility] [address] [place] [address], [facility] [place] [facility] Lev [place] & [address] [address] * CT Chest with IV Contrast (07/05/2022 8:01 AM MODEL DRESSER) Anatomical Region Laterality Modality Chest, Thoracic RST LOS, Tho racic ARZ LOS, Thoracic ARZ LOS, Thoracic FLA LOS N/A Computed Tomography 07/05/2022 8:43 AM MODEL DRESSER Impressions 07/05/2022 8:51 AM MODEL DRESSER 1. Spiculated left lower lobe mass, highly [...] attention at follow-up. Narrative 07/05/2022 8:51 AM MODEL DRESSER EXAM: CT CHEST WITH IV CONTRAST COMPARISON: [...] Recently Relevant to Health Maintenance Care Teams Attendant Coin Operated Laundry Relationship Specialty Start Date End Date Suhail Burrows M.B.B.S., M.D. [address] [place] [address] [place] [phone] PCP - General Family Medicine 06/09/22
--- OUTSIDE RECORDS SUMMARY | 2023-12-26 14:12 | XMS_ITS | Encounter Summary ---
Author Organization [facility] Address [address] [place] [address] Care Team Providers Care Customer Success Advocate Name Role Phone Suhail Burrows M.D. Primary Care Allan fernandes Reason for Referral * Outpatient (Routine) - Closed Specialty Diagnoses / Procedures Referred By Yelena griffin Referred To Contact Diagnoses Screening Mammogram Breast Cancer Procedures BI Breast Screening Bilateral with Tomosynthesis Suhail Burrows M.B.B.S., M.D. [address] [facility] [place] [address] [facility] Referral ID Status Reason Start Date Expiration Date Visits Re quested Visits Authorized [id number] Closed 10/17/2023 10/16/2024 1 1 Encounter Details Date Type Department Care Team (Late st Contact Info) Description 10/17/2023 Orders Only [facility] PCP TH MNT Suhail Burrows M.B.B.S., M.D. [address] [facility] [place] [address] Screening Mammogram Breast Cancer Social [...] CDT Appointment Department of Radiation Oncology in [place], [place] [address] [place] [phone] Clemente Feng M.D. [address] [place] [address] documented as of this encounter Results * [...] Visit Diagnoses Diagnosis Screening Mammogram Breast Cancer Screening Mammogram Breast Cancer documented in this encounter Care Teams Customer Success Advocate Relationship Specialty Start Date End Date Suhail Burrows M.B.B.S., M.D. [address] [place] [phone] PCP - General Family Medicine 06/09/22 documented as of this encounter
--- OUTSIDE RECORDS SUMMARY | 2023-12-26 14:12 | XMS_ITS | Encounter Summary ---
Author Organization [facility] Address [address] [place] [address] Care Team Providers Care Livestock Dealer Name Role Phone Suhail Burrows M.D. 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 [address] [place] [address] [facility] Region Referral ID Status Reason Start Date Expiration Date V isits Requested Visits Authorized [id number] Authorized 08/30/2023 08/29/2024 10 10 Encounter Details Date Type Department Care Team (Latest Contact Info) Description 09/26/2023 4:00 PM CDT - 09/26/2023 11:59 PM CDT Hospital Encounter Department of Radiation Oncology in [place], [place] [address] [place] [address] Clemente Feng M.D. [address] [place] [phone] Ingrid Feng R.N. [address] [place] [phone] Secondary Malignant Neoplasm Lymph Node Intra Abdominal [...] this encounter Progress Notes * Ingrid Feng R.N. - 09/26/2023 4:00 PM CDT PHONE-CALL FOLLOW [...] (cGy) First Treatment Last Treatment Elapsed Days [id number] 5 / 5 500 2500 2500 09/20/2023 09/26/2023 6 [id number] 5 / 5 500 2500 2500 09/20/2023 [...] a brain MRIthat will be ordered at [place]. She will continue ongoing follow with Dr. Julian at [facility]. She has no other questions or concerns [...] CDT Appointment Department of Radiation Oncology in [place], [place] [address] [place] [address] Clemente Feng M.D. 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 [address] [place] [phone] PCP - General Family Medicine 06/09/22 documented as of this encounter
--- OUTSIDE RECORDS SUMMARY | 2023-12-26 14:12 | XMS_ITS | Encounter Summary ---
Author Organization [facility] Address [address] [place] [address] Care Team Providers Care Financial Service Representative Name Role Phone Suhail Burrows M.D. Primary Care Allan fernandes Reason for Visit * Reason Onset Date Comments Results 11/20/2023 Encounter Details Date Type Department Care Team (Late st Contact Info) Description 11/20/2023 Clinical Communication Department of Family Medicine, [facility], in [place], [place] [address] [place] [address] Suhail Burrows M.B.B.S., M.D. [address] [place] [address] Results Social History Tobacco Use Types Packs/Day Years Used Date Smoking Tobacco: Former Cigarettes 1 30.2 1 993 - 08/10/2022 Smokeless Tobacco: Never Alcohol Use Standard Drinks/Week Comments Yes 0 (1 standard drink = 0.6 oz pur e alcohol) rare [facility] Utilities Answer Date Recorded In the past 12 months has [employer], gas, oil, or water [employer] threatened to shut off services in your [...] your living situation today? I have a [facility] place to live 11/17/2023 Sex and Gender Information Value Date Recorded Sex Assigned at Female 11/17/2023 2:56 PM CDT Gender Identity Female 11/17/2023 2:56 PM CDT Sexual Orientation Straight 11/17/2023 2: 56 PM CDT documented as of this encounter Miscellaneous Notes * Telephone Encounter - Maryana Middleton R.N. - 11/22/2023 2:47 PM CDT Multiple attempts, letter sent. * Telephone Encounter - Patricia Hooper L.P.N. - 11/20/2023 9:29 AM CDT Left message for patient to return call to clinic. Does the patient need to speak to nursing? yes Action needed: Inform patient of results----- Message from Nelly Ch M.D. sent at 11/18/2023 12:55 PM CDT ----- Cholesterol numbers are elevated but her cardiovascular risk within the next 10 years is low at 3%.I would recommend to continue with healthy lifestyle including low carb diet and physical activities as tolerated. Will repeat labs in 1 year. documented in this encounter Plan of Treatment Upcoming Encounters Date Type Department Care Team (Late st Contact Info) Description 01/01/2024 2:00 PM CDT Appointment Department of Radiation Oncology in [place], [place] [address] [place] [address] Clemente Feng M.D. [address] [place] [address] documented as of this encounter Visit Diagnoses Not on filedocumented in this encounter Care Teams Financial Service Representative Relationship Specialty Start Date End Date Suhail Burrows M.B.B.S., M.D. [address] [place] [phone] PCP - General Family Medicine 06/09/22 documented as of this encounter
--- OUTSIDE RECORDS SUMMARY | 2023-12-26 14:13 | XMS_ITS | Clinical Summary ---
Author Organization [facility] Address [place], [place] [address] Care Team Providers Care Cook Tortilla Name Role Phone Suhail Burrows Primary Care [...] positive high risk HPV cervical Overview: 07/08/16: [place]: GROVER 1 08/03/16: LEEP: Negative, Ecto: Positive [...] Outcome GA Total Labor Labor/2nd/3rd Weight Sex Type Anes PTL Melody A1 A5 Name Clin Term Term Term Last Filed Vital Signs Vital Sign Reading Time Taken Comments Blood Pressure 209/91 06/09/2022 1:58 PM SHELTER CASE MANAGER Pulse 77 06/09/2022 1:58 PM SHELTER CASE MANAGER Temperature 36.9 ??C (98.4 ??F) 06/09/2022 12:[address] Respiratory Rate 16 06/09/2022 12:12 PM SHELTER CASE MANAGER Oxygen Saturation 95% 06/09/2022 1:58 PM SHELTER CASE MANAGER Inhaled Oxygen Concentration - - Weight 56.7 kg (125 lb) 06/09/2022 12:12 PM SHELTER CASE MANAGER Height 157.5 cm (5' 2) 06/09/2022 12:12 PM SHELTER CASE MANAGER Body Mass Index 22.86 06/09/2022 12:12 PM SHELTER CASE MANAGER Plan of Treatment Health Maintenance Due [...] 76 05/20/202105/20, 05/20/2016, 05/20/2016 COVID-19 vaccine series ( season) 2023 06/17/2021, 10/20/2020, 09/29/2020 Influenza for age 50-64 02/11/2024 04/12/20 16, 02/24/2015, 04/12/2012, Additional history exists Tdap Completed 04/01/2010 Pneumococcal series for age 6-64 Aged Out No longer eligible based on patient's age to complete this topic Procedures Procedure Name Priority Date/Time Associated Diagnosis Comments PHARMACY TECHNICIAN PROGRAM DIRECTOR THIN PREP PAP SCREEN IMAGED Routine 12/21/2017 9:46 AM CDT Cervical cancer screening XR MAMMO BILAT SCREENING Routine 12/21/2017 8:29 AM CDT Visit for screening mammogram COLONOSCOPY 05/20/2016 10:00 AM SHELTER CASE MANAGER LIPID PANEL W REFLEX MEASURED LDL Routine 02/24/2015 11:27 AM CDT Screening, lipid from Last 3 Months or Most Recently Relevant to Health Maintenance Results * (ABNORMAL) PHARMACY TECHNICIAN PROGRAM DIRECTOR THIN PREP PAP SCREEN IMAGED (12/21/2017 9:46 AM CDT) Case Report Gynecologic Cytology Report ? Case: [id number] ? Authorizing Provider: ??Tavia Flores, ??Collected: ? 12/21/201746 ? MD ? Ordering Location: ? [facility] ?? Received: ?12/21/201748 ? Clinic ? First Screen: ?Yue Pop ? Pathologist: ? Catalina Medina ? MD Jelly ? Specimen: ?PHARMACY TECHNICIAN PROGRAM DIRECTOR ThinPrep Vial Screening, Cervical ? 12/29/2017 4:20 PM CDT [facility] INTERPRETATION/ RESULT LOW GRADE SQUAMOUS INTRAEPITHELIAL LESION (LSIL)(A) (none) 12/29/2017 4:20 PM CDT [facility] IMEN ADEQUACY Satisfactory for evaluation Endocervical component present 12/29/2017 4:20 PM CDT [facility] HPV REQUEST HPV and PAP 12/29/2017 4:20 PM CDT [facility] Date of LMP menospausal 12/29/2017 4:20 PM CDT [facility] Last Pap Date 04/12/16 12/29/2017 4:20 PM CDT [facility] Last Pap Result ASCUS 8 4:20 PM CDT [facility] Abnormal Pap or [place] Bx in last 5 years Yes 12/29/2017 4:20 PM CDT [facility] Menstrual Status Postmenopausal 12/29/2017 4:20 PM CDT [facility] [place] Bx Done Today No 12/29/2017 4:20 PM CDT [facility] Additional Information None given 12/29/2017 4:20 PM CDT [facility] Automated Review Successful 12/29/2017 4:20 PM CDT [facility] Comment:Specimen processed s uccessfully by automated condenser operator device, [employer] ANCILLARY TESTING PHARMACY TECHNICIAN PROGRAM DIRECTOR HPV Ordered, Please see separate report 12/29/2017 4:20 PM CDT [facility] Note The pap test [...] lesions. Cytology is screened and interpreted at [facility] - [address], [place] [address] and [facility] - [address]; [place] [address] and [facility] - [address]; [place] [address] and [facility] [address]; [place] [address] 12/29/2017 4:20 PM CDT [facility] Other (Cervical) Non-Blood / Unknown 12/21/2017 9:46 AM CDT 12/21/2017 9:48 AM CDT Tavia Flores MD PATHOLOGY/[facility]T [facility] [address] [place] [address], [place] * XR MAMMO BILAT SCREENING (12/21/2017 8:29 AM CDT) Anatomical Region Laterality Modality BREASTS, Breast Left, Breast Right Bilateral Mammography Impressions 12/21/2017 12:23 PM CDT ??There is no radiographic evidence for malignancy. ??Recommend annual mammograms. A lay language report of this examination will be provided to the patient. MAMMOGRAM ASSESSMENT: ??ACR 2 Benign Narrative 12/21/2017 12:23 PM CDT XR MAMMO BILAT SCREENING [[id number]] CLINICAL HISTORY: ??This is an asymptomatic 57 y.o. patient. INDICATION FOR EXAM: Mammogram Screening. TECHNIQUE: CC & MLO views were obtained. ??This digital study was evaluated with the assistance of Computer-Aided Detection. COMPARISON FILMS: Yes 04/18/16 [facility] 02/24/15 [facility] FINDINGS: ??Mammographically, the breast tissue is heterogeneously dense. ?? No suspicious masses or microcalcifications. ??Benign appearing calcifications within both breasts. Tavia Flores MD MAMMO * COLONOSCOPY (05/20/2016 10:00 AM SHELTER CASE MANAGER) 05/20/2016 10:0 0 AM SHELTER CASE MANAGER Narrative Transcriptions Keenan Rivera MD - [...] adequate candidate for conscious sedation. The [id number] was passed through the anus and advanced [...] 10:00 AM Procedure Code(s): --- Professional --- 69518, Colonoscopy, flexible; with removalof tumor(s), polyp(s), or other lesion(s) bysnare technique 00272, 59, Colonoscopy, flexible; withbiopsy, single or multiple Diagnosis Code(s): --- Professional --- Z80.0, Family history of malignant neoplasmof digestive organs D12.2, Benign neoplasm of ascending colon K62.1, Rectal polyp K64.8, Other hemorrhoids CPT copyright 2015 [employer]. All rights reserved. The codes documented in this report are preliminary and upon pneudraulic systems mechanic reviewmay be revised to meet current compliance requirements. Scope In: 10:10:21 AM Scope Withdrawal Time 0 hours 17 minutes 34 seconds Scope Out: 10:34:16 AM Keenan Rivera MD PROCEDURE ORD * (ABNORMAL) LIPID PANEL W REFLEX MEASURED LDL (02/24/2015 11:27 AM CDT) CHOLESTEROL,TOTAL 243(H) 100 - 199 mg/dL 02/24/2015 11:58 AM CDT [facility] TRIGLYCERIDES 68 <150 mg/dL 02/24/2015 11:58 AM CDT [facility] HDL CHOLESTEROL 59 >40 mg/dL 02/24/2015 11:58 AM CDT [facility] NON-HDL CHOLESTEROL 184(H) <145 mg/dl 02/24/2015 11:58 AM CDT [facility] CHOL/HDL RATIO 4.12 <4.50 02/24/2015 11:58 AM CDT [facility] LDL CHOLESTEROL 170(H) <=130 mg/dL 02/24/2015 11:58 AM CDT [facility] PATIENT STATUS FASTING 02/24/2015 11:58 AM CDT [facility] Blood specimen (specimen) BLOOD SPECIMEN / Unknown Venipuncture / Unknown 02/24/2015 11:27 AM CDT 02/24/2015 11:27 AM CDT Tavia Flores MD CHEMISTRY [facility] [address] [place] [address], from Last 3 Months or Most Recently Relevant to Health Maintenance Care Teams Cook Tortilla Relationship Specialty Start Date End Date Suhail Burrows MBBS [address] [place] [address] JOSEFA Alvarez [phone] PCP - General Family Practice 07/01/22
--- NOTE | 2023-12-26 14:30 | CRLHL7_ITS ---
For Patients: As a result of the Century Cures Act, medical imaging exams and procedure reports are released immediately into your electronic medical record. You may view this report before your referring provider. If you have questions, please contact your health care provider. Indication: Metastases. Technique: Multiplanar, multisequence MRI of the brain was performed without and with intravenous contrast. Contrast: 15 cc Dotarem. Comparison: MR brain 11/03/2023. Findings: Metastatic foci characterize on series 15: 1. Improved punctate focus within the left precentral gyrus. Image 177. 2. Similar punctate focus of enhancement within the left ugalde radiata. Image 155. 3. Improved small focus of enhancement within the left middle cerebral peduncle. Image 94. 4. Less conspicuous abnormal enhancement within the right superior frontal gyrus. Image 192. No new foci of abnormal enhancement. Stable intrinsic T1 hyperintense area within the left parietal calvarium could represent a calvarial hemangioma. There is no restricted diffusion. No intracranial hemorrhage. Mild parenchymal volume loss. Moderate T2 FLAIR hyperintense foci within the subcortical and periventricular white matter, favored to represent chronic ischemic microvascular disease. The ventricles are proportionate to the cerebral sulci. The 4th ventricle appears midline. The basal cisterns appear patent. No abnormal extra-axial fluid collection identified. Impression: 1. Stable or slightly improved scattered punctate intracranial metastatic foci. 2. No new or progressing metastatic foci identified. 3. No acute intracranial process. 4. Moderate chronic ischemic microvascular disease. Dictated by Daniel Mcconnell MD @ 12/27/2023 11:46:24 AM (Electronically Signed)
== END 2023-12-26 14:10 | disposition home or self-care (01) ==
PROVIDERS: PCP Family Medicine; Visit Provider Internal Medicine
DX: C79.31 Secondary malignant neoplasm of brain (principal); I67.82 Cerebral ischemia
CPT/HCPCS: 70553; A9575

== ENCOUNTER 2024-02-13 12:45 | Outpatient (RCR) | payer BC, SELFPAY ==
--- NOTE | 2023-10-06 11:25 | URNOTE ---
Prior auth is not required for Pembrolizumab (J9271) per . Ref #[id number]
[2023-10-10 09:55] LABS: Basophils Absolute Auto 0.04 K/uL (0.00-0.30); Basophils Percent Auto 0.8 % (0.0-3.0); Eosinophils Absolute Auto 0.13 K/uL (0.00-0.50); Eosinophils Percent Auto 2.7 % (0.0-7.0); Hematocrit 41.2 % (33.0-51.0); Hemoglobin* 13.4 gm/dL (12.0-16.0); Immature Granulocytes Abs Auto 0.01 K/uL (0.00-0.30); Immature Granulocytes Pct Auto 0.2 %; Lymphocytes Percent Auto 12.6 % (20-44); Mean Corpuscular HGB Conc 33 gm/dL (32-36); Mean Corpuscular Hemoglobin 31 pg (26-34); Mean Corpuscular Volume 97 fL (80-100); Monocytes Percent Auto 8.3 % (0.0-11.0); Neutrophils Percent Auto 75.4 % (42.0-72.0); Platelet Count* 183 K/uL (140-440); RDW Coefficient of Variation % 12.6 % (11.5-15.5); Red Blood Count 4.27 m/uL (4.00-5.20); White Blood Count* 4.84 K/uL (4.50-11.00)
[2023-10-10 09:56] LABS: Slide Review Reflex No
[2023-10-10 10:15] LABS: Albumin* 4.2 g/dL (3.3-5.0); Chloride* 106 mmol/L (96-114)
[2023-10-10 10:16] LABS: Potassium* 4.3 mmol/L (3.6-5.1); Sodium* 138 mmol/L (135-149)
[2023-10-10 10:18] LABS: Alkaline Phosphatase* 46 U/L (40-150); Anion Gap 3 mEq/L (7-15); Aspartate Amino Transferase* 30 U/L (12-35); Bilirubin Total* 0.3 mg/dL (0.1-1.5); Blood Urea Nitrogen* 15 mg/dL (7-30); Carbon Dioxide* 29 mmol/L (20-32); Creatinine* 0.6 mg/dL (0.5-1.5); Estimated Glomerular Filt Rate 101 ml/min; Total Protein* 7.3 g/dL (6.0-8.3)
[2023-10-10 10:19] LABS: Alanine Aminotransferase* 25 U/L (4-35); Calcium* 9.2 mg/dL (8.4-10.6); Glucose* 94 mg/dL (60-115)
[2023-10-10 11:29] LABS: Thyroid Stimulating Hormone* 0.868 uIU/mL (0.270-4.20)
[2023-10-11] MEDS: ZOLEDRONIC ACID 4 MG in 0.9 % SODIUM CHLORIDE 100 ml 100 ML 420 MG IVPB (09:57)
[2023-10-11] MEDS: PEMBROLIZUMAB 400 MG, TUBING PRIMARY 1 EACH, In-line 0.2 micron filter set 1 EACH in 0.... 232 MG IVPB (10:17)
[2023-10-11] MEDS: 0.9 % SODIUM CHLORIDE 250 ml IV (11:01)
[2023-10-11] MEDS: SODIUM CHLORIDE 0.9 % (FLUSH) 10 ML SYRINGE IVF (12:01)
[2023-11-20 09:09] LABS: Basophils Absolute Auto 0.03 K/uL (0.00-0.30); Basophils Percent Auto 0.5 % (0.0-3.0); Eosinophils Absolute Auto 0.25 K/uL (0.00-0.50); Eosinophils Percent Auto 4.3 % (0.0-7.0); Hematocrit 40.2 % (33.0-51.0); Hemoglobin* 13.1 gm/dL (12.0-16.0); Immature Granulocytes Abs Auto 0.01 K/uL (0.00-0.30); Immature Granulocytes Pct Auto 0.2 %; Lymphocytes Percent Auto 10.9 % (20-44); Mean Corpuscular HGB Conc 33 gm/dL (32-36); Mean Corpuscular Hemoglobin 32 pg (26-34); Mean Corpuscular Volume 97 fL (80-100); Monocytes Percent Auto 8.6 % (0.0-11.0); Neutrophils Percent Auto 75.5 % (42.0-72.0); Platelet Count* 265 K/uL (140-440); Red Blood Count 4.13 m/uL (4.00-5.20); White Blood Count* 5.79 K/uL (4.50-11.00)
[2023-11-20 09:17] LABS: Slide Review Reflex No
[2023-11-20 09:22] LABS: Albumin* 4.4 g/dL (3.3-5.0); Chloride* 106 mmol/L (96-114); Potassium* 4.1 mmol/L (3.6-5.1); Sodium* 140 mmol/L (135-149)
[2023-11-20 09:25] LABS: Alanine Aminotransferase* 15 U/L (4-35); Alkaline Phosphatase* 48 U/L (40-150); Anion Gap 3 mEq/L (7-15); Aspartate Amino Transferase* 24 U/L (12-35); Bilirubin Total* 0.5 mg/dL (0.1-1.5); Blood Urea Nitrogen* 14 mg/dL (7-30); Carbon Dioxide* 31 mmol/L (20-32); Creatinine* 0.6 mg/dL (0.5-1.5); Estimated Glomerular Filt Rate 101 ml/min; Glucose* 59 mg/dL (60-115); Total Protein* 7.2 g/dL (6.0-8.3)
[2023-11-20 09:26] LABS: Calcium* 9.1 mg/dL (8.4-10.6)
[2023-11-22] MEDS: 0.9 % SODIUM CHLORIDE 250 ml IV (14:49)
[2023-11-22] MEDS: SODIUM CHLORIDE 0.9 % (FLUSH) 10 ML SYRINGE IVF (14:49)
[2023-11-22] MEDS: PEMBROLIZUMAB 400 MG, TUBING PRIMARY 1 EACH, In-line 0.2 micron filter set 1 EACH in 0.... 232 MG IVPB (15:11)
[2024-01-02 14:28] LABS: Basophils Absolute Auto 0.05 K/uL (0.00-0.30); Basophils Percent Auto 0.8 % (0.0-3.0); Eosinophils Absolute Auto 0.18 K/uL (0.00-0.50); Eosinophils Percent Auto 2.8 % (0.0-7.0); Hematocrit 41.2 % (33.0-51.0); Hemoglobin* 13.5 gm/dL (12.0-16.0); Immature Granulocytes Abs Auto 0.01 K/uL (0.00-0.30); Immature Granulocytes Pct Auto 0.2 %; Lymphocytes Percent Auto 15.9 % (20-44); Mean Corpuscular HGB Conc 33 gm/dL (32-36); Mean Corpuscular Hemoglobin 32 pg (26-34); Mean Corpuscular Volume 97 fL (80-100); Monocytes Percent Auto 7.6 % (0.0-11.0); Neutrophils Percent Auto 72.7 % (42.0-72.0); Platelet Count* 303 K/uL (140-440); RDW Coefficient of Variation % 12.6 % (11.5-15.5); Red Blood Count 4.25 m/uL (4.00-5.20); White Blood Count* 6.46 K/uL (4.50-11.00)
[2024-01-02 14:46] LABS: Albumin* 4.9 g/dL (3.3-5.0); Chloride* 102 mmol/L (96-114); Potassium* 4.6 mmol/L (3.6-5.1); Sodium* 137 mmol/L (135-149)
[2024-01-02 14:49] LABS: Alanine Aminotransferase* 17 U/L (4-35); Alkaline Phosphatase* 52 U/L (40-150); Anion Gap 5 mEq/L (7-15); Aspartate Amino Transferase* 26 U/L (12-35); Bilirubin Total* 0.5 mg/dL (0.1-1.5); Blood Urea Nitrogen* 17 mg/dL (7-30); Carbon Dioxide* 30 mmol/L (20-32); Creatinine* 0.7 mg/dL (0.5-1.5); Estimated Glomerular Filt Rate 98 ml/min; Glucose* 104 mg/dL (60-115); Total Protein* 7.9 g/dL (6.0-8.3)
[2024-01-02 14:58] LABS: Slide Review Reflex No
[2024-01-03] MEDS: ZOLEDRONIC ACID 4 MG in 0.9 % SODIUM CHLORIDE 100 ml 100 ML 420 MG IVPB (11:48)
[2024-01-03] MEDS: PEMBROLIZUMAB 400 MG, TUBING PRIMARY 1 EACH, In-line 0.2 micron filter set 1 EACH in 0.... 232 MG IVPB (12:11)
[2024-02-13 12:54] LABS: Basophils Absolute Auto 0.02 K/uL (0.00-0.30); Basophils Percent Auto 0.4 % (0.0-3.0); Eosinophils Absolute Auto 0.15 K/uL (0.00-0.50); Eosinophils Percent Auto 3.1 % (0.0-7.0); Hematocrit 37.9 % (33.0-51.0); Hemoglobin* 12.4 gm/dL (12.0-16.0); Immature Granulocytes Abs Auto 0.01 K/uL (0.00-0.30); Immature Granulocytes Pct Auto 0.2 %; Lymphocytes Percent Auto 14.8 % (20-44); Mean Corpuscular HGB Conc 33 gm/dL (32-36); Mean Corpuscular Hemoglobin 32 pg (26-34); Mean Corpuscular Volume 97 fL (80-100); Monocytes Percent Auto 8.1 % (0.0-11.0); Neutrophils Percent Auto 73.4 % (42.0-72.0); Platelet Count* 238 K/uL (140-440); RDW Coefficient of Variation % 12.7 % (11.5-15.5); Red Blood Count 3.91 m/uL (4.00-5.20); White Blood Count* 4.81 K/uL (4.50-11.00)
[2024-02-13 13:00] LABS: Slide Review Reflex No
[2024-02-13 13:07] LABS: Albumin* 4.5 g/dL (3.3-5.0); Chloride* 105 mmol/L (96-114); Sodium* 138 mmol/L (135-149)
[2024-02-13 13:08] LABS: Potassium* 3.9 mmol/L (3.6-5.1)
[2024-02-13 13:10] LABS: Alanine Aminotransferase* 14 U/L (4-35); Alkaline Phosphatase* 47 U/L (40-150); Anion Gap 5 mEq/L (7-15); Aspartate Amino Transferase* 25 U/L (12-35); Bilirubin Total* 0.2 mg/dL (0.1-1.5); Blood Urea Nitrogen* 14 mg/dL (7-30); Carbon Dioxide* 28 mmol/L (20-32); Creatinine* 0.6 mg/dL (0.5-1.5); Estimated Glomerular Filt Rate 101 ml/min; Glucose* 88 mg/dL (60-115); Total Protein* 7.1 g/dL (6.0-8.3)
[2024-02-13 13:11] LABS: Calcium* 9.4 mg/dL (8.4-10.6)
[2024-02-13 13:51] LABS: Thyroid Stimulating Hormone* 0.954 uIU/mL (0.270-4.20)
[2024-02-13] MEDS: SODIUM CHLORIDE 0.9 % (FLUSH) 10 ML SYRINGE IVF (14:44)
[2024-02-13] MEDS: PEMBROLIZUMAB 400 MG, TUBING PRIMARY 1 EACH, In-line 0.2 micron filter set 1 EACH in 0.... 232 MG IVPB (14:44)
[2024-02-13] MEDS: 0.9 % SODIUM CHLORIDE 250 ml IV (14:44)
== END 2024-03-10 23:59 | disposition home or self-care (01) ==
LOC: CCIC 12:45
PROVIDERS: Clinical Nurse Specialist; PCP Family Medicine; Referring Provider Family Medicine; Visit Provider Internal Medicine Hematology & Oncology
DX: C34.92 Malignant neoplasm of unspecified part of left bronchus or lung (principal); C79.51 Secondary malignant neoplasm of bone; Z51.12 Encounter for antineoplastic immunotherapy
CPT/HCPCS: 36415; 80053; 84443; 85025; 96366; 96376; 96413; 99211; 99214; 99215; G0463; J3489; J7050; J9271

== ENCOUNTER 2024-03-25 14:48 | Outpatient (CLI) | payer BC, SELFPAY ==
--- OUTSIDE RECORDS SUMMARY | 2024-03-25 14:54 | XMS_ITS | Clinical Summary ---
Author Organization [facility] Address [address] [place] [address] Care Team Providers Care Set Up Machinist Name Role Phone Suhail Burrows M.D. Primary Care P dena Source Comments Patient records contain information from all sites at [facility]. For routine questions regarding patient records, call [phone] during business hours, M-F 8:00 AM - 5:00 PM Central Time. Record requests for emergency care only can be directed to [phone] at any time.[facility] Allergies No known active allergies Medications amLODIPine (NORVASC) 10 mg tabletIndicatio ns:Hypertension Essential Primary Take 1 tablet (10 mg total) by mouth daily. 90 tablet 3 3 Active ondansetron (ZOFRAN) 8 mg tablet Take 1 tablet (8 mg total) by mouth every 8 (eight) hours as needed for nausea or vomiting. Take about 45 minutes before each radiation treatment. 10 tablet 4 Active Additional Information Patient not taking.Reported on 01/02/2024 cyclobenzaprine (FLEXERIL) 10 mg tablet Take 1 tablet (10 mg total) by mouth at bedtime as needed for muscle spasms. 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 Undetermined Significanc e Cervix 08/29/2013 Overview (06/20/2022): 07/08/16: [place]: GROVER 1 08/03/16: LEEP: Negative, Ecto: Positive for atypia suggestive of HPV effect Endo: Free of atypia and GROVER 12/21/17: LSIL/HPV Positive Plan: Colposcopy Resolved Problems Problem Noted Date Diagnosed Date Resolved Date Elevated Blood Pressure Without Hypertension 2 06/20/2022 Melanoma Skin 04/01/2010 08/01/2022 Overview (06/20/2022): Right arm 2000 Encounters Date Type Department Care Team Description 02/13/2024 Orders Only Department of Oncology in [place], [place] [address] [place] [address] Lakisha Julian M.D. 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 Discharge Disposition: Home or Self Care 01/19/2024 Documentation Department of Radiation Oncology in [address] [address] Clemente Feng M.D. 01/17/2024 2:47 PM CDT - 01/17/2024 11:59 PM CDT Hospital Encounter Department of Radiation Oncology in [address] [address] Clemente Feng M.D. Discharge Disposition: Home or Self Care 01/15/2024 2:36 PM CDT - 01/15/2024 11:59 PM CDT Hospital Encounter Department of Radiation Oncology in [address] [address] Clemente Feng M.D. Discharge Disposition: Home or Self Care 01/11/2024 2:37 PM CDT - 01/11/2024 6:54 PM CDT Hospital Encounter Department of Radiation Oncology in [address] [address] Clemente Feng M.D. 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 Discharge Disposition: Home or Self Care 01/09/2024 2:53 PM CDT - 01/09/2024 11:59 PM CDT Hospital Encounter Department of Radiation Oncology in [address] [address] Clemente Feng M.D. Discharge Disposition: Home or Self Care 01/02/2024 2:59 PM CDT - 01/02/2024 3:57 PM CDT Hospital Encounter Department of Radiation Oncology in [address] [address] Clemente Feng M.D. Secondary Malignant Neoplasm Bone (HCC); Secondary Malignant Neoplasm Intrapelvic Lymph Node (HCC) 01/02/2024 2:48 PM CDT - 01/03/2024 11:20 AM CDT Hospital Encounter Department of Radiation Oncology in [address] [address] Clemente Feng M.D. Grieman, Kari A, R.N. 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 Secondary Malignant Neoplasm Bone (HCC) (Primary Dx); Secondary Malignant Neoplasm Intrapelvic Lymph Node (HCC) 12/26/2023 8:37 AM CDT - 12/26/2023 11:59 PM CDT Hospital Encounter Department of Radiology in [place], [place] [address] [place] [address] Lakisha Julian M.D. 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) Discharge Disposition: Home or Self Care from Last 3 Months Immunizations Name Administration Dates Next Due Influenza TIV (IM) 04/12/2012,03/12/2010 Influenza, Injectable, Quadrivalent 04/01/2022,1 Influenza, Seasonal, Injectable 04/12/2012 PCV20 11/17/2023 Tdap 11/17/2023,04/01/2010 influenza trivalent vaccine (6 months and older) (PF) 02/28/2010 influenza vaccine quad (FLUZ ONE/FLUARIX) (6 months [...] = 0.6 oz pur e alcohol) rare [facility] Utilities Answer Date Recorded In the past 12 months has e [employer], gas, oil, or water [employer] threatened to shut off services in your [...] [facility] 11/17/2023 Comments No Sex and Gender Information Value Date Recorded Sex Assigned at Female 11/17/2023 2:56 PM CDT Legal Sex Female 9:56 AM [employer] Gender Identity Female 11/17/2023 2:56 PM CDT Sexual Orientation Straight 11/17/2023 2: 56 PM CDT Last Filed Vital Signs Vital Sign Reading Time Taken Comments Blood Pressure 124/56 01/11/2024 3:18 PM CDT Pulse 54 01/11/2024 3:18 PM CDT Temperature 35.7 ??C (96.3 ??F) 01/11/2024 3:18 PM CD T Respiratory Rate 16 11/17/2023 3:03 PM CDT Oxygen Saturation 92% 08/08/2022 10:30 AM [employer] Inhaled Oxygen Concentration - - Weight 49.3 kg (108 lb 11 oz) 01/11/2024 3:18 PM CDT Height 157 cm (5' 1.81) 11/17/2023 3:03 PM CDT Body Mass Index 20 11/17/2023 3:03 PM CDT Plan of Treatment Upcoming Encounters Date Type Department Care Team (Late st Contact Info) Description 04/02/2024 10:00 AM CDT Appointment Department of Radiology in [place], [place] [address] [place] [address] Lakisha Julian M.D. [address] [place] [address] Discharge Disposition: Home or Self Care 04/08/2024 2:00 PM CDT Appointment Department of Radiation Oncology in [place], [place] [address] [place] [phone] Clemente Feng M.D. [address] [place] [address] Health Maintenance Due Date Last Done Comments CT Colonography 1961 Cologuard 1961 HIV Screening 1961 Hepatitis C Screening 1961 Zoster Vaccines (1 of 2) 1980 COVID-19 Vaccine ( - season) 2024 06/17/2021, 10/20/2020, 09/29/2020 Influenza Vaccine (#1) 2024 [...] Comments ARIA COURSE COMPLETE TREATMENT INFORMATION Routine 01/19/2024 3:07 PM CDT ARIA DAILY TREATMENT INFORMATION Routine 01/19/2024 3:07 PM CDT ARIA DAILY TREATMENT INFORMATION Routine 01/17/2024 3:31 PM CDT ARIA DAILY TREATMENT INFORMATION Routine 01/15/2024 3:23 PM CDT ARIA DAILY TREATMENT INFORMATION Routine 01/11/2024 3:11 PM CDT ARIA DAILY TREATMENT INFORMATION Routine 01/09/2024 3:29 PM CDT INITIAL RAD ONC TREATMENT PLANNING CT SIMULATION Routine 01/02/2024 3:30 PM CDT 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) OUTSIDE MR NEURO Routine 12/26/2023 2:[address] SKULL TO THIGH RAD - Routine (most inpatients and all outpatients) 12/26/2023 10:20 AM CDT 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) LIPID PANEL, S Routine 11/17/2023 4:25 PM CDT Well Adult Examination Normal BI BREAST SCREENING BILATERAL WITH TOMOSYNTHESIS RAD - Routine (most inpatients and all outpatients) 11/17/2023 4:19 PM CDT Screening Mammogram Breast Cancer HPV WITH GENOTYPING, PCR, THINPREP Routine 11/17/2023 3:33 PM CDT HEMOGLOBIN A1C, B Routine 08/08/2023 11:26 AM [employer] Fatigue CT CHEST WITH IV CONTRAST RAD - Routine (most inpatients and all outpatients) 07/05/2022 8:01 AM [employer] Nodule Pulmonary from Last 3 Months or Most Recently Relevant to Health Maintenance Results * Aria Course Complete Treatment Information (01/19/2024 3:07 PM CDT) Course ID [id number] teSBRT [facility] Course Start Date 4 08:52 CDT [facility] Course End Date 4 14:27 CDT GAMING ARIA First Treatment Date 4 15:15 CDT GAMING ARIA Last Treatment Date 4 15:07 CDT GAMING ARIA Treatment Elapsed Days 10 GAMING ARIA Reference Point dpviliacR _3000x GAMING [facility]A Dosage Given to Date cGy 3000 GAMING ARIA Reference Point dpvPelvis L_3000x [facility]AM[facility] Dosage Given to Date cGy 3000 GAMING [facility] Plan ID [id number] R [facility]AMING [facility] Fractions Treated to Date 5 GAMING ARIA Planned Total Fractions 5 GAMING ARIA Prescribed Dose Per Fraction 600 GAMING ARIA Prescription Dose in cGy 3000 GAMING ARIA Plan Primary Reference Point dpviliacR _3000x GAMING [facility] Plan ID [id number] cetL [facility] Fractions Treated to Date 5 GAMING ARIA Planned Total Fractions 5 GAMING ARIA Prescribed Dose Per Fraction 600 GAMING ARIA Prescription Dose in cGy 3000 GAMING ARIA Plan Primary Reference Point dpvPelvis L_3000x [facility] 01/19/2024 3:07 PM CDT us Provider Not In System RADIATION ONCOLOGY ORDERA BLES Final Result GAMING ARIA na * Aria Daily Treatment Information (01/19/2024 3:07 PM CDT) Only the most recent of5 resultswithin the time period is included. Course ID 5xMultisi teSBRT [facility] Course Start Date 4 08:52 CDT GAMING ARIA First Treatment Date 4 15:15 CDT GAMING ARIA Last Treatment Date 4 15:07 CDT GAMING ARIA Treatment Elapsed Days 10 GAMING ARIA Reference Point dpviliacR _3000x [facility] Dosage Given to Date cGy 3000 GAMING [facility] Session Dosage Given 600 GAMING [facility]A Reference Point dpvPelvis L_3000x [facility] Dosage Given to Date cGy 3000 [facility] Session Dosage Given 600 [facility] Plan ID [id number] R [facility] Fractions Treated to Date 5 GAMING [facility] Planned Total Fractions 5 GAMING ARIA Prescribed Dose Per Fraction 600 [facility] Prescription Dose in cGy 3000 [facility]ING [facility] Plan Primary Reference Point dpviliacR _3000x [facility] Plan ID [id number] cetL [facility] Fractions Treated to Date 5 [facility] Planned Total Fractions 5 [facility] Prescribed Dose Per Fraction 600 [facility] Prescription Dose in cGy 3000 [facility] Plan Primary Reference Point dpvPelvis L_3000x [facility] 01/19/2024 3:07 PM CDT Provider Not In System RADIATION ONCOLOGY ORDERA BLES Final Result Performing Organization Address City/[facility] Co de Phone Number AMBERLY RUFFIN na * Initial Rad Onc Treatment Planning CT Simulation (01/02/2024 3:30 PM CDT) Narrative AMBERLY RUFFIN - 01/02/2024 3:30 PM CDT Lorena Cerna, RTT ? 01/02/2024 ??3:54 PM Initial Rad Onc Treatment Planning CT Simulation Performed by: Clemente Feng M.D. Authorized by: Clemente Feng M.D. ?? Clemente Feng M.D. RADIATION ONCOLOGY ORDERAB LES Final Result Performing Organization Address [facility] Co de Phone Number AMBERLY RUFFIN na * MR head/brain wo/w con-Outside MR Neuro (12/26/2023 2:20 PM CDT) Narrative [facility] - 12/27/2023 12:53 PM CDT This order has been created and auto-finalized to support the import of outside images. If available, original interpretation can be found on the Media Tab in Chart Review, in Document Viewer, as an image in QREADS or as an Addendum. If a re-interpretation or overread is required please follow defined workflow.?? us Provider Not In System IMG MRI PROCEDURES Final Result Performing Organization Address City/[facility] Co de Phone Number II NA * PET CT Skull to Thigh FDG (12/26/2023 10:20 AM CDT) Anatomical Region Laterality Modality Body, Nuclear Medicine PET R ST LOS, PET ARZ LOS, Nuclear Medicine PET FLA [facility], Nuclear Medicine N/A Positron Emission Tomography (PET) [...] RADIOPHARMACEUTICAL/MEDS: Route: intravenous fludeoxyglucose F 18 injection LONGTERM (FDG F-18),13 millicurie Procedure Note Yousif Velasco [...] RADIOPHARMACEUTICAL/MEDS: Route: intravenous fludeoxyglucose F 18 injection LONGTERM (FDG F-18),13 millicurie IMPRESSION: 1. Mixed disease response with progressed bilateral external iliaclymphadenopathy. Remaining sites of metastatic disease are stable todecreased as detailed above. 2. Stable dilation of the ascending thoracic aorta. Lakisha Julian M.D. [facility] NM PROCEDURES Final Resu lt * (ABNORMAL) Lipid Panel (11/17/2023 4:25 PM [...] 4:25 PM CDT 11/17/2023 5:43 PM CDT us Nelly Ch M.D. LAB BLOOD ADD-ON Final Resul t [facility] [address] [place] [address], [place] OWAT [facility] in [place] [address] [place] [address] * BI Breast Screening Bilateral with Tomosynthesis [...] Annual Screening Mammogram ASSESSMENT: BI-RADS: 1: Negative. us Suhail Davies M.D. [facility] BI EILEENUR ES Final Result * HPV with Genotyping, PCR, ThinPrep (11/17/2023 [...] correlated with patient's history, clinical presentation, and [employer] cytology report. 11/17/2023 3:33 PM CDT 11/20/2023 7:40 AM CDT us Nelly Ch M.D. LAB MICROBIOLOGY - GENERAL O RDERABLES Final Result [facility] [address] [place] [address], [facility] [address] [place] [id number] * Hemoglobin A1c (08/08/2023 11:26 AM [employer]) Hemoglobin A1c, B 5.6 4.2 - 5.6 % 08/08/2023 12:50 PM [employer] FRANCIS Blood (Blood, Venous) 08/08/2023 11:26 AM [employer] 08/08/2023 11:32 AM [employer] us Tomer Hinson M.D. LAB BLOOD ADD-ON Final Result [facility] [address] [place] [address], [facility] FRANCIS [facility] & [address] [place] [address] * CT Chest with IV Contrast (07/05/2022 8:01 AM [employer]) Anatomical Region Laterality Modality Chest, Thoracic RST LOS, Tho racic ARZ LOS, Thoracic ARZ LOS, Thoracic FLA LOS N/A Computed Tomography 07/05/2022 8:43 AM [employer] Impressions 07/05/2022 8:51 AM [employer] 1. Spiculated left lower lobe mass, highly [...] attention at follow-up. Narrative 07/05/2022 8:51 AM [employer] EXAM: CT CHEST WITH IV CONTRAST COMPARISON: [...] opacity at the left lung apex, posteriorly () has a flattened appearance on sagittal image [...] at follow-up. Suhail Davies M.D. IMG CT PROCEDUR ES Final Result from Last 3 Months or Most Recently Relevant to Health Maintenance Insurance [facility] Care Teams Set Up Machinist Relationship Specialty Start Date End Date Suhail Burrows M.B.B.S. MChika. [address] [place] [address] JOSEFA Alvarez [phone] PCP - General Family Medicine 06/09/22
--- OUTSIDE RECORDS SUMMARY | 2024-03-25 14:54 | XMS_ITS | Encounter Summary ---
Author Organization [facility] Address [address] [place] [address] Care Team Providers Care Antique Clock Repairer Name Role Phone Suhail Burrows M.D. Primary Care P dena Encounter Details Date Type Department Care Team (Latest Contact Info) Description 01/19/2024 2:39 PM CDT - 01/19/2024 11:59 PM CDT Hospital Encounter Department of Radiation Oncology in [place], [place] [address] [place] [phone] Clemente Feng M.D. [address] [place] [address] Discharge Disposition: Home or Self Care Social History Tobacco Use Types Packs/Day Years Used Date Smoking Tobacco: Former Cigarettes 1 30.2 1 993 - 08/10/2022 Smokeless Tobacco: Never Alcohol Use Standard Drinks/Week Comments Yes 0 (1 standard drink = 0.6 oz pur e alcohol) rare [facility] Utilities Answer Date Recorded In the past 12 months has [employer], gas, oil, or water company threatened to shut off services in your [...] your living situation today? 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 [address] [place] [phone] Discharge Disposition: Home or Self Care 04/08/2024 2:00 PM CDT Appointment Department of Radiation Oncology in [place], [place] [address] [place] [phone] Clemente Feng M.D. [address] [place] [address] documented as of this encounter Visit Diagnoses Not on filedocumented in this encounter Care Teams Antique Clock Repairer Relationship Specialty Start Date End Date Suhail Burrows M.B.B.S., M.D. [address] [place] [phone] PCP - General Family Medicine 06/09/22 documented as of this encounter
--- OUTSIDE RECORDS SUMMARY | 2024-03-25 14:54 | XMS_ITS ---
Author Organization [facility] Address [address] [place] [address] Care Team Providers Care Negative Stripper Name Role Phone Unavailable Unavailable Unavailable Surgery Details Not on file Complications Check Surgery Details section. Procedure Estimated Blood Loss Check Surgery Details section. Procedure Findings Check Surgery Details section. Procedure Specimens Taken Check Surgery Details section.
--- OUTSIDE RECORDS SUMMARY | 2024-03-25 14:54 | XMS_ITS | Encounter Summary ---
Author Organization [facility] Address [address] [place] [address] Care Team Providers Care Upholstery Estimator Name Role Phone Suhail Burrows M.D. Primary Care P dena Encounter Details Date Type Department Care Team (Latest Contact Info) Description 01/11/2024 2:36 PM CDT Hospital Encounter Department of Radiation Oncology in [place], [place] [address] [place] [address] Clemente Feng M.D. [address] [place] [address] Discharge Disposition: Home or Self Care Social History Tobacco Use Types Packs/Day Years Used Date Smoking Tobacco: Former Cigarettes 1 30.2 1 993 - 08/10/2022 Smokeless Tobacco: Never Alcohol Use Standard Drinks/Week Comments Yes 0 (1 standard drink = 0.6 oz pur e alcohol) rare [facility] Utilities Answer Date Recorded In the past 12 months has [employer], gas, oil, or water [employer] threatened to shut off services in your [...] your living situation today? I have a [facility] place to live 11/17/2023 Comments No Sex and Gender Information Value Date Recorded Sex Assigned at Female 11/17/2023 2:56 PM CDT Legal Sex Female 9:56 AM MEDICAID SERVICE COORDINATOR Gender Identity Female 11/17/2023 2:56 PM CDT [...] CDT Appointment Department of Radiology in [place], [place] [address] [phone] Lakisha Julian M.D. [address] [place] [address] Discharge Disposition: Home or Self Care 04/08/2024 2:00 PM CDT Appointment Department of Radiation Oncology in [place], [place] [address] [place] [address] Clemente Feng M.D. [address] [place] [address] documented as of this encounter Visit Diagnoses Not on filedocumented in this encounter Care Teams Upholstery Estimator Relationship Specialty Start Date End Date Suhail Burrows M.B.B.SBeronica Young. [address] [place] [phone] PCP - General Family Medicine 06/09/22 documented as of this encounter
--- OUTSIDE RECORDS SUMMARY | 2024-03-25 14:54 | XMS_ITS | Encounter Summary ---
Author Organization [facility] Address [address] [place] [address] Care Team Providers Care Supervisor Esters And Emulsifiers Name Role Phone Suhail Burrows M.D. Primary Care P dena Reason for Referral * MRI/CAT/PET Scan (Routine) - Authorized Specialty Diagnoses / Procedures Referred By Contac t Referred To Contact Diagnoses 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) Procedures PET CT Skull to Thigh FDG Lakisha Julian M.D. [address] [place] [address] Phone: tel: fax: [facility] Referral ID Status Reason Start Date Expiration Date V isits Requested Visits Authorized [id number] Authorized 02/13/2024 02/12/2025 1 1 Encounter Details Date Type Department Care Team (Late st Contact Info) Description 02/13/2024 Orders Only Department of Oncology in [place], [place] [address] [place] [address] Lakisha Julian M.D. 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 I have a [facility] place to live 11/17/2023 Comments No Sex and Gender Information Value Date Recorded Sex Assigned at Female 11/17/2023 2:56 PM CDT Legal Sex Female 9:56 AM SENIOR SOFTWARE QA ANALYST Gender Identity Female 11/17/2023 2:56 PM CDT Sexual Orientation Straight 11/17/2023 2: 56 PM CDT documented as of this encounter Plan of Treatment Upcoming Encounters Date Type Department Care Team (Late st Contact Info) Description 04/02/2024 10:00 AM CDT Appointment Department of Radiology in [place], [place] [address] [place] [address] Lakisha Julian M.D. [address] [place] [address] Discharge Disposition: Home or Self Care 04/08/2024 2:00 PM CDT Appointment Department of Radiation Oncology in [place], [place] [address] [place] [phone] Clemente Feng M.D. 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 [address] [place] [phone] PCP - General Family Medicine 06/09/22 documented as of this encounter
--- OUTSIDE RECORDS SUMMARY | 2024-03-25 14:54 | XMS_ITS | Encounter Summary ---
Author Organization [facility] Address [address] [place] [address] Care Team Providers Care Cement Finishing Supervisor Name Role Phone Suhail Burrows M.D. Primary Care P dena Encounter Details Date Type Department Care Team (Latest Contact Info) Description 01/17/2024 2:47 PM CDT - 01/17/2024 11:59 PM CDT Hospital Encounter Department of Radiation Oncology in [place], [place] [address] [place] [phone] Clemente Feng M.D. [address] [place] [address] Discharge Disposition: Home or Self Care Social History Tobacco Use Types Packs/Day Years Used Date Smoking Tobacco: Former Cigarettes 1 30.2 1 993 - 08/10/2022 Smokeless Tobacco: Never Alcohol Use Standard Drinks/Week Comments Yes 0 (1 standard drink = 0.6 oz pur e alcohol) rare [facility] Utilities Answer Date Recorded In the past 12 months has [employer] electric, gas, oil, or water company threatened [...] your living situation today? I have a [facility] place to live 11/17/2023 Comments No Sex and Gender Information Value Date Recorded Sex Assigned at Female 11/17/2023 2:56 PM CDT Legal Sex Female 9:56 AM CARPET CLEANING TECHNICIAN Gender Identity Female 11/17/2023 2:56 PM CDT [...] AM CDT Appointment Department of Radiology in [place], [place] [address] [place] [address] Lakisha Julian M.D. [address] [place] [phone] Discharge Disposition: Home or Self Care 04/08/2024 2:00 PM CDT Appointment Department of Radiation Oncology in [place], [place] [address] [place] [phone] Clemente Feng M.D. [address] [place] [address] documented as of this encounter Visit Diagnoses Not on filedocumented in this encounter Care Teams Cement Finishing Supervisor Relationship Specialty Start Date End Date Suhail Burrows M.B.B.S., M.D. [address] [place] [phone] PCP - General Family Medicine 06/09/22 documented as of this encounter
--- OUTSIDE RECORDS SUMMARY | 2024-03-25 14:54 | XMS_ITS | Encounter Summary ---
Author Organization [facility] Address [address] [place] [address] Care Team Providers Care Medical Billing Instructor Name Role Phone Suhail Burrows M.D. Primary Care P dena Reason for Referral * Outpatient (Routine) - Authorized Specialty Diagnoses / Procedures Referred By Yelena griffin Referred To Contact Radiation Oncology Yusra Love APRN, C.N.PHector, D.N.P. [address] [place] [phone] Phone: tel: fax: Clemente Feng M.D. [address] [place] [phone] Phone: tel: fax: Referral ID Status Reason Start Date Expiration Date V isits Requested Visits Authorized [id number] Authorized 01/11/2024 07/12/2025 1 1 Scheduling Instructions Phone; after imaging ordered by Dr. 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 [address] [place] [address] Phone: tel: fax: [facility] Referral ID Status Reason Start Date Expiration Date V isits Requested Visits Authorized [id number] Authorized 08/30/2023 08/29/2024 10 10 Encounter Details Date Type Department Care Team (Latest Contact Info) Description 01/11/2024 2:37 PM CDT - 01/11/2024 6:54 PM CDT Hospital Encounter Department of Radiation Oncology in [place], [place] [address] [place] [phone] Clemente Feng M.D. 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 I have a [facility] place to live 11/17/2023 Comments No Sex and Gender Information Value Date Recorded Sex Assigned at Female 11/17/2023 2:56 PM CDT Legal Sex Female 9:56 AM SUB ACUTE CARE NURSE Gender Identity Female 11/17/2023 2:56 PM CDT Sexual Orientation Straight 11/17/2023 2: 56 PM CDT documented as of this encounter Last Filed Vital Signs Vital Sign Reading Time Taken Comments Blood Pressure 124/56 01/11/2024 3:18 PM CDT Pulse 54 01/11/2024 3:18 PM CDT Temperature 35.7 ??C (96.3 ??F) 01/11/2024 3:18 PM CD T Respiratory Rate - - Oxygen Saturation - - Inhaled Oxygen Concentration - - Weight 49.3 kg (108 lb 11 oz) 01/11/2024 3:18 PM CDT Height - - Body Mass Index 20 11/17/2023 3:03 PM CDT documented in this encounter Medications at [...] as of this encounter Progress Notes * Yusra Love APRN, C.N.P., D.N.P. - 01/11/2024 4:00 PM CDT SUBJECTIVE REASON FOR VISIT Evaluation for side effects while receiving radiation treatment for 1. 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 ([id number]) HISTORY OF PRESENT ILLNESS Miss Sandrine Deleon is a 63 y.o. 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 She is currently undergoing radiation treatment to her left acetabulum and bilateral external iliac lymph nodes. Treatment Course: 5xMultisiteSBRT Plan ID Fractions Dose / Fraction (cGy) Dose Treated (cGy) Dose Planned (cGy) First Treatment Last Treatment Elapsed Days F1IliLN_AcetL 2 / 600 1200 3000 01/09/2024 01/11/2024 2 [id number] 2 / 600 1200 3000 01/09/2024 01/11/2024 2 Course Summary 01/09/2024 01/11/2024 2 The patient was seen and examined today with Dr. Feng. The patient reports feeling well overall. She denies any pain within her left hip. She denies any diarrhea or changes to bowel movements. Denies any abdominal pain. She denies any other new concerns or questions at this time. PATIENT REPORTED SYMPTOM SCREEN FATIGUE (Scale: 0 = no fatigue; 10 = worst fatigue you can imagine): 1 PAIN (Scale: 0 = no pain; 10 = worst pain you can imagine): 0 OVERALL QUALITY OF LIFE (Scale: 0 = as bad as can be; 10 = as good as can be): 9 OBJECTIVE BP 124/56 (BP Location: Right arm, Patient Position: Sitting, Cuff Size: Regular) Pulse (!) 54 Temp (!) 35.7 ??C (Temporal) Wt 49.3 kg BMI 20.00 kg/m?? PHYSICAL EXAM General: Alert and oriented [...] S1 region initiated on September 20, 2023; completion on September 26, 2023 #11 PET/CT scan on December 26, 2023 revealed progression in bilateral external iliac lymph nodes and left acetabulum #12 SBRT to bilateral external iliac lymph nodes and left acetabulum initiated January 09, 2024; anticipated completion date January 19, 2024 The patient is tolerating radiation treatment well overall. She is not experiencing any acute side effects related to radiation treatment at this time. She will continue with radiation treatment as planned. We will schedule a phone follow-up after she has completed repeat surveillance imaging with Dr. Julian at [facility]. She is encouraged to contact the team with any questions or concerns. Signed by: Yusra Love APRN, C.N.P., D.N.P. 01/11/2024 3:59 PM CDT Cosigned by Clemente Feng M.D. at 01/11/2024 6:49 PM CDT Associated attestation - Clemente Feng M.D. - 01/11/2024 6:49 PM CDT I saw and evaluated the patient and participated in the hansen portions of the service. I reviewed thedocumentation of Yusra Love C.N.P. and agree with the findings and plan. The patient appearswell on exam. She is here today with Josef. She is tolerating treatment well without apparent side effect. She will finish treatment as planned next week. We will have a phone follow-up with her afterher next imaging to be ordered by Dr. Julian. She verbalized satisfaction with this plan. Signed by: Clemente Feng M.D. 01/11/24 6:49 PM CDT [facility] Radiation Therapy [facility] documented in this encounter Miscellaneous Notes * Addendum Note - Jennifer Day C.NHectorAHector - 01/11/2024 4:00 PM CDTEncounter addended by: Jennifer Day C.N.A. on: 01/15/2024 7:04 AM Actions taken: Letter saved documented in this encounter Plan of Treatment Upcoming Encounters Date Type Department Care Team (Late st Contact Info) Description 04/02/2024 10:00 AM CDT Appointment Department of Radiology in [place], [place] [address] [place] [address] Lakisha Julian M.D. [address] [place] [phone] Discharge Disposition: Home or Self Care 04/08/2024 2:00 PM CDT Appointment Department of Radiation Oncology in [place], [place] [address] [place] [address] Clemente Feng M.D. 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 [address] [place] [phone] PCP - General Family Medicine 06/09/22 documented as of this encounter
--- OUTSIDE RECORDS SUMMARY | 2024-03-25 14:54 | XMS_ITS | Encounter Summary ---
Author Organization [facility] Address [address] [place] [address] Care Team Providers Care Tank Car Mechanic Name Role Phone Suhail Burrows M.D. Primary Care P dena Encounter Details Date Type Department Care Team (Late st Contact Info) Description 01/19/2024 Documentation Department of Radiation Oncology in [place], [place] [address] [place] [phone] Clemente Feng M.D. [address] [place] [address] Social History Tobacco Use Types Packs/Day Years Used Date Smoking Tobacco: Former Cigarettes 1 30.2 1 993 - 08/10/2022 Smokeless Tobacco: Never Alcohol Use Standard Drinks/Week Comments Yes 0 (1 standard drink = 0.6 oz pur e alcohol) rare [facility] Utilities Answer Date Recorded In the past 12 months has [employer], gas, oil, or water [employer] threatened to shut off services in your [...] your living situation today? 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 - 01/19/2024 11:59 PM CDT DIAGNOSIS: 1. 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 Secondary Malignant Neoplasm Intrapelvic Lymph Node (HCC) 3. 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 ([phone]) Treatment Intent: Palliative Concomitant Therapy: None Single Plan Treatment Course: 5xMultisiteSBRT Plan ID Fractions Dose / Fraction (cGy) Dose Treated (cGy) Dose Planned (cGy) First Treatment Last Treatment Elapsed Days F1IliLN_AcetL 600 3000 3000 01/09/2024 01/19/2024 10 S8LcfzuCBZ 600 3000 3000 01/09/2024 01/19/2024 10 Course Summary 01/09/2024 01/19/2024 10 Radiation Modality: Photons CLINICAL SUMMARY Miss Sandrine Deleon completed radiation treatment as planned without interruptions. The course of treatment was tolerated well. The patient experienced no toxicities during radiation treatment. TREATMENT RESPONSE: Response to treatment will be determined by post-treatment imaging and/or laboratory work. RECOMMENDED FOLLOW UP: Primary Medical Oncologist. We will have a phone follow- up with her after her next imaging to be ordered by Dr. Julian. Signed by: Princess Ruiz R.N., 02/14/2024 9:26 AM CDT [facility] Radiation Therapy Center [address] [place] [address] Cosigned by Clemente Feng M.D. at 02/15/2024 5:58 PM CDT documented in this encounter Plan of Treatment Upcoming Encounters Date Type Department Care Team (Late st Contact Info) Description 04/02/2024 10:00 AM CDT Appointment Department of Radiology in [place], [place] [address], [place] [address] Lakisha Julian M.D. [address] [place] [address] Discharge Disposition: Home or Self Care 04/08/2024 2:00 PM CDT Appointment Department of Radiation Oncology in [place], [place] [address] [place] [address] Clemente Feng M.D. 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 [address] [place] [address] [place] [address] PCP - General Family Medicine 06/09/22 documented as of this encounter
--- OUTSIDE RECORDS SUMMARY | 2024-03-25 14:54 | XMS_ITS | Encounter Summary ---
Author Organization [facility] Address [address] [place] [address] Care Team Providers Care Lens Cementer Name Role Phone Suhail Burrows M.D. Primary Care P dena Encounter Details Date Type Department Care Team (Latest Contact Info) Description 01/15/2024 2:36 PM CDT - 01/15/2024 11:59 PM CDT Hospital Encounter Department of Radiation Oncology in [place], [place] [address] [place] [phone] Clemente Feng M.D. [address] [place] [address] Discharge Disposition: Home or Self Care Social History Tobacco Use Types Packs/Day Years Used Date Smoking Tobacco: Former Cigarettes 1 30.2 1 993 - 08/10/2022 Smokeless Tobacco: Never Alcohol Use Standard Drinks/Week Comments Yes 0 (1 standard drink = 0.6 oz pur e alcohol) rare [facility] Utilities Answer Date Recorded In the past 12 months has [employer] electric, gas, oil, or water company threatened [...] your living situation today? 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 [address] [place] [phone] Discharge Disposition: Home or Self Care 04/08/2024 2:00 PM CDT Appointment Department of Radiation Oncology in [place], [place] [address] [place] [phone] Clemente Feng M.D. [address] [place] [address] documented as of this encounter Visit Diagnoses Not on filedocumented in this encounter Care Teams Lens Cementer Relationship Specialty Start Date End Date Suhail Burrows M.B.B.S., M.D. [address] [place] [phone] PCP - General Family Medicine 06/09/22 documented as of this encounter
--- OUTSIDE RECORDS SUMMARY | 2024-03-25 14:54 | XMS_ITS | Encounter Summary ---
Author Organization [facility] Address [address] [place] [address] Care Team Providers Care Wig Stylist Name Role Phone Suhail Burrows M.D. 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 [address] [place] [address] Phone: tel: fax: T Radiation Oncology at [place] [address] [place] [phone] Referral ID Status Reason Start Date Expiration Date V isits Requested Visits Authorized [id number] Authorized 01/09/2024 06/11/2024 5 5 Encounter Details Date Type Department Care Team (Latest Contact Info) Description 01/09/2024 2:53 PM CDT - 01/09/2024 11:59 PM CDT Hospital Encounter Department of Radiation Oncology in [place], [place] [address] [place] [phone] Clemente Feng M.D. [address] [place] [phone] Discharge Disposition: Home or Self Care Social History Tobacco Use Types Packs/Day Years Used Date Smoking Tobacco: Former Cigarettes 1 30.2 1 993 - 08/10/2022 Smokeless Tobacco: Never Alcohol Use Standard Drinks/Week Comments Yes 0 (1 standard drink = 0.6 oz pur e alcohol) rare [facility] Utilities Answer Date Recorded In the past [...] your living situation today? 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 [address] [place] [address] Discharge Disposition: Home or Self Care 04/08/2024 2:00 PM CDT Appointment Department of Radiation Oncology in [place], [place] [address] [place] [address] Clemente Feng M.D. [address] [place] [address] documented as of this encounter Visit Diagnoses Not on filedocumented in this encounter Care Teams Wig Stylist Relationship Specialty Start Date End Date Suhail Burrows M.B.B.S., M.Annette. [address] [place] [phone] PCP - General Family Medicine 06/09/22 documented as of this encounter
--- OUTSIDE RECORDS SUMMARY | 2024-03-25 14:54 | XMS_ITS | Encounter Summary ---
Author Organization [facility] Address [address] [place] [address] Care Team Providers Care Shoe Lining Fitter Name Role Phone Suhail Burrows M.D. 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 [address] [place] [address] Phone: tel: fax: [facility] Referral ID Status Reason Start Date Expiration Date Visits Re quested Visits Authorized [id number] Closed 12/29/2023 12/28/2024 1 1 Encounter Details Date Type Department Care Team (Latest Contact Info) Description 01/02/2024 2:48 PM CDT - 01/03/2024 11:20 AM CDT Hospital Encounter Department of Radiation Oncology in [place], [place] [address] [place] [address] Clemente Feng M.D. [address] [place] [phone] Princess Ruiz R.N. 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 - 01/02/2024 3:00 PM CDT Has patient received IV contrast in the past? No History of adverse reaction to the contrast? no History of heart problems (CHF)? No History of kidney problems (current or history of dialysis, single kidney, kidney transplant)? no History of asthma? No Current inhaler use? no Lung assessment. clear to auscultation History of diabetes? No Taking Metformin? no If yes, written instructions given: Instructions for taking metformin after an injection of iodinated contrast material, [id number] Lab Results Component Value Date CREATININE eGFR 0.7 98 01/02/24 01/02/24 Central Line: No Procedural pause conducted by RN and RTT staff to verify: correct patient identity, correct IV contrast protocol and delay time Patient tolerated the procedure well. Discharge instructions were given. Patient was provided with bottle of water and instructed to increase hydration over the next 24-48 hours. documented in this encounter Plan of Treatment Upcoming Encounters Date Type Department Care Team (Late st Contact Info) Description 04/02/2024 10:00 AM CDT Appointment Department of Radiology in [place], [place] [address] [facility] [place] [address] Lakisha Julian M.D. [address] [place] [phone] Discharge Disposition: Home or Self Care 04/08/2024 2:00 PM CDT Appointment Department of Radiation Oncology in [place], [place] [address] [place] [phone] Clemente Feng M.D. 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)- Primary Secondary Malignant Neoplasm Intrapelvic Lymph Node (HCC) documented in this encounter Administered Medications Inactive Administered Medications - up to 3 most recent administrations Medication Order MAR Action Action Date Dose Rate Site iohexoL 300 mg iodine/mL solution 1-200 mL (Omnipaque) 1-200 mL, intravenous, Once in imaging, contrast, Starting on Mon01/02/24 at 1501, For 1 dose, Intraprocedure (RAD), Administer 1-200 mL, dosing per medication reference document and per protocol.Indications:Secondary Malignant Neoplasm Intrapelvic Lymph Node (HCC) Given 01/02/2024 3:30 PM CDT 100 mL NaCl 0.9 % bolus 1-100 mL 1-100 mL, intravenous, at 1-100 mL/hr, Administer over 1 Hours, Once in imaging, other, Give per medication reference and protocol, Starting on Mon01/02/24 at 1501, For 1 dose, Intraprocedure (RAD)Indications:Secondary Malignant Neoplasm Intrapelvic Lymph Node (HCC) New Bag 01/02/2024 3:45 PM CDT 50 mL 50 mL/hr sodium chloride 0.9 % injection 10 mL 10 mL, intravenous, As needed, line care, Starting on Mon01/02/24 at 1544, Prior to blood sampling, post blood transfusion, or post blood sampling.Indications: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 [address] [place], [place] [address]ibaJOSEFA stahl [phone] PCP - General Family Medicine 06/09/22 documented as of this encounter
--- OUTSIDE RECORDS SUMMARY | 2024-03-25 14:54 | XMS_ITS ---
Author Organization [facility] Address [address] [place] [address] Care Team Providers Care Amphibian Crewmember Name Role Phone Suhail Burrows M.D. Primary [...] Significanc e Cervix 08/29/2013 Overview (06/20/2022): 07/08/16: [place]: GROVER 1 08/03/16: LEEP: Negative, Ecto: Positive for atypia suggestive of HPV effect Endo: Free of atypia and GROVER 12/21/17: LSIL/HPV Positive Plan: Colposcopy Current Oncology Plans Vascular Access Patency - Peripheral Intravenous Catheter and Rapid Infusion Catheter* Plan Start Date:01/02/2024 Plan Provider:Clemente Feng M.D. Linked Problems Malignant Neoplasm Of Lung L ower Lobe Or Bronchus Left (HCC) Treatment Medications No medications scheduled. Past Plans No past plan information found. Radiation Treatments * Plan Last Treated On Elapsed Days Fractions Treated Prescribed Fraction Dose Prescribed Total Dose [id number]_Ace tL 01/19/2024 10 5 of 5 600 cGy 3,000 cGy [id number] 01/19/2024 10 5 of 5 600 cGy 3,000 cGy [id number] 09/26/2023 6 5 of 5 500 cGy 2,500 cGy H4BvffkV 09/26/2023 6 5 of 5 500 cGy 2,500 cGy I0BquyV 05/24/2023 6 5 of 5 400 cGy 2,000 cGy Q3RvsbsgmT 03/08/2023 0 1 of 1 800 cGy 800 cGy G3RdIcslfPH 09/09/2022 11 10 of 10 300 cGy 3,000 cG y Reference Point Last Treated On Elapsed Days Session Dose Total Dose dpvPelvisL_3000x 01/19/2024 10 600 cGy 3,000 cG y dpviliacR_3000x 01/19/2024 10 600 cGy 3,000 cGy [id number] 09/26/2023 6 500 cGy 2,500 cGy [id number] 09/26/2023 6 500 cGy 2,500 cGy [id number] 05/24/2023 6 400 cGy 2,000 cGy [id number] 03/08/2023 0 800 cGy 800 cGy [id number] 09/09/2022 11 300 cGy 3,000 cGy Resolved Problems Problem Noted Date Diagnosed Date Resolved Date Elevated Blood Pressure Without Hypertension 2 06/20/2022 Melanoma Skin 04/01/2010 08/01/2022 Overview (06/20/2022): Right arm 2000
--- OUTSIDE RECORDS SUMMARY | 2024-03-25 14:54 | XMS_ITS | Referral Summary ---
Author Organization [facility] Address [address] [place] [address] Care Team Providers Care Mortgage Clerk Name Role Phone Suhail Burrows M.D. Primary Care P sherylcaridad Source Comments Patient records contain information from all sites at [facility]. For routine questions regarding patient records, call [phone] during business hours, M-F 8:00 AM - 5:00 PM Central Time. Record requests for emergency care only can be directed to [phone] at any time.[facility] Encounters Date Type Department Care Team Description 02/13/2024 Orders Only Department of Oncology in [place], [place] [address] [place] [phone] Lakisha Julian M.D. 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 01/19/2024 2:39 PM CDT - 01/19/2024 11:59 PM CDT Hospital Encounter Department of Radiation Oncology in [place], [place] [address] [place] [address] Clemente Feng M.D. Discharge Disposition: Home or Self Care 01/17/2024 2:47 PM CDT - 01/17/2024 11:59 PM CDT Hospital Encounter Department of Radiation Oncology in [address] [address] Clemente Feng M.D. Discharge Disposition: Home or Self Care 01/15/2024 2:36 PM CDT - 01/15/2024 11:59 PM CDT Hospital Encounter Department of Radiation Oncology in [address] [address] Clemente Feng M.D. Discharge Disposition: Home or Self Care 01/11/2024 2:37 PM CDT - 01/11/2024 6:54 PM CDT Hospital Encounter Department of Radiation Oncology in [address] [address] Clemente Feng M.D. 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 Discharge Disposition: Home or Self Care 01/09/2024 2:53 PM CDT - 01/09/2024 11:59 PM CDT Hospital Encounter Department of Radiation Oncology in [address] [address] Clemente Feng M.D. Discharge Disposition: Home or Self Care 01/02/2024 2:48 PM CDT - 01/03/2024 11:20 AM CDT Hospital Encounter Department of Radiation Oncology in [address] [address] Clemente Feng M.D. 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 Secondary Malignant Neoplasm Bone (HCC); Secondary Malignant Neoplasm Intrapelvic Lymph Node (HCC) 01/01/2024 1:43 PM CDT - 01/01/2024 2:18 PM CDT Hospital Encounter Department of Radiation Oncology in [address] [address] Clemente Feng M.D. 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 Secondary Malignant Neoplasm Bone (HCC) (Primary Dx); Secondary Malignant Neoplasm Intrapelvic Lymph Node (HCC) 12/26/2023 8:37 AM CDT - 12/26/2023 11:59 PM CDT Hospital Encounter Department of Radiology in [place], [place] [address] [address] Lakisha Julian M.D. 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 90 tablet 3 3 Active ondansetron (ZOFRAN) 8 mg tablet Take 1 tablet (8 mg total) by mouth every 8 (eight) hours as needed for nausea or vomiting. Take about 45 minutes before each radiation treatment. 10 tablet Active Additional Information Patient not taking.Reported on [...] Significanc e Cervix 08/29/2013 Overview (06/20/2022): 07/08/16: [place]: GROVER 1 08/03/16: LEEP: Negative, Ecto: Positive for atypia suggestive of HPV effect Endo: Free of atypia and GROVER 12/21/17: LSIL/HPV Positive Plan: Colposcopy Resolved Problems Problem Noted Date Diagnosed Date Resolved Date Elevated Blood Pressure Without Hypertension 2 06/20/2022 Melanoma Skin 04/01/2010 08/01/2022 Overview (06/20/2022): Right arm 1999 Immunizations Name Administration Dates [...] = 0.6 oz pur e alcohol) rare [facility] Utilities Answer Date Recorded In the past 12 months has th e [employer], gas, oil, or water [employer] threatened to shut off services in your [...] money to buy more. Never true 11/17/19 Within the past 12 months, t he [...] your living situation today? 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 Gender Identity Female 11/17/2023 2:56 PM CDT Sexual Orientation Straight 11/17/2023 2: 56 PM CDT Last Filed Vital Signs Vital Sign Reading Time Taken Comments Blood Pressure 124/56 01/11/2024 3:18 PM CDT Pulse 54 01/11/2024 3:18 PM CDT Temperature 35.7 ??C (96.3 ??F) 01/11/2024 3:18 PM CD T Respiratory Rate 16 11/17/2023 3:03 PM CDT Oxygen Saturation 92% 08/08/2022 10:30 AM LANDFILL ATTENDANT Inhaled Oxygen Concentration - - Weight 49.3 kg (108 lb 11 oz) 01/11/2024 3:18 PM CDT Height 157 cm (5' 1.81) 11/17/2023 3:03 PM CDT Body Mass Index 20 11/17/2023 3:03 PM CDT Plan of Treatment Upcoming Encounters Date Type Department Care Team (Late st Contact Info) Description 04/02/2024 10:00 AM CDT Appointment Department of Radiology in [place], [place] [address] [place] [address] Lakisha Julian M.D. [address] [place] [phone] Discharge Disposition: Home or Self Care 04/08/2024 2:00 PM CDT Appointment Department of Radiation Oncology in [place], [place] [address] [place] [address] Clemente Feng M.D. [address] [place] [address] Procedures Procedure Name Priority Date/Time Associated Diagnosis [...] HEMOGLOBIN A1C, B Routine 08/08/2023 11:26 AM LANDFILL ATTENDANT Fatigue CT CHEST WITH IV CONTRAST RAD - Routine (most inpatients and all outpatients) 07/05/2022 8:01 AM LANDFILL ATTENDANT Nodule Pulmonary from Last 3 Months or Most Recently Relevant to Health Maintenance Results * Aria Course Complete Treatment Information (01/19/2024 3:07 PM CDT) Course ID [id number] teSBRT GAMING ARIA Course Start Date 4 08:52 CDT GAMING ARIA Course End Date 4 14:27 CDT GAMING ARIA First Treatment Date 4 15:15 CDT GAMING ARIA Last Treatment Date 4 15:07 CDT GAMING ARIA Treatment Elapsed Days 10 GAMING ARIA Reference Point dpviliacR _3000x GAMING ARIA Dosage Given to Date cGy 3000 GAMING ARIA Reference Point dpvPelvis L_3000x GAMING ARIA Dosage Given to Date cGy 3000 GAMING ARIA Plan ID [id number] R GAMING ARIA Fractions Treated to Date [...] Dosage Given 600 GAMING ARIA Plan ID [id number] R GAMING ARIA Fractions Treated to Date [...] ORDERA BLES Final Result Performing Organization Address City/[facility]/ZIP Co de Phone Number AMBERLY RUFFIN na * Initial Rad Onc Treatment Planning CT Simulation (01/02/2024 3:30 PM CDT) Narrative GAMING ARIA - 01/02/2024 3:30 PM CDT Lorena Cerna, RTT ? 01/02/2024 ??3:54 PM Initial Rad Onc Treatment Planning CT Simulation Performed by: Clemente Feng M.D. Authorized by: Clemente Feng M.D. ?? Clemente Feng M.D. RADIATION ONCOLOGY ORDERAB LES Final Result Performing Organization Address City/[facility]/ZIP Co de Phone Number AMBERLY RUFFIN na [...] In System IMG MRI PROCEDURES Final Result IIMS NA * PET CT Skull to Thigh [...] fludeoxyglucose F 18 injection SKILLED NURSING (FDG F-18),13 millicurie Procedure Note Yousif Velasco [...] fludeoxyglucose F 18 injection SKILLED NURSING (FDG F-18),13 millicurie IMPRESSION: 1. Mixed disease response with progressed bilateral external iliaclymphadenopathy. Remaining sites of metastatic disease are stable todecreased as detailed above. 2. Stable dilation of the ascending thoracic aorta. us Lakisha BARR NM PROCEDURES Final Resu lt * (ABNORMAL) [...] M.D. LAB BLOOD ADD-ON Final Resul t [facility] [address] [place] [address], [facility] in [place] [address] [place] [address] * BI Breast Screening Bilateral with Tomosynthesis [...] ASSESSMENT: BI-RADS: 1: Negative. Suhail Davies M.D. [facility] BI PROCEDUR ES Final Result * HPV with Genotyping, [...] correlated with patient's history, clinical presentation, and CASTING CARRIER cytology report. 11/17/2023 3:33 PM CDT 11/20/2023 7:40 AM CDT Nelly Ch M.D. LAB MICROBIOLOGY - GENERAL O RDERABLES Final Result Performing Organization Address City/[facility] Co de Phone Number [facility] [address] [place] [address], [facility] [employer] [address] * Hemoglobin A1c (08/08/2023 11:26 AM LANDFILL ATTENDANT) Hemoglobin A1c, B 5.6 4.2 - 5.6 % 08/08/2023 12:50 PM LANDFILL ATTENDANT FRANCIS Blood (Blood, Venous) 08/08/2023 11:26 AM LANDFILL ATTENDANT 08/08/2023 11:32 AM LANDFILL ATTENDANT Tomer Hinson M.D. LAB BLOOD ADD-ON Final Result [facility] [place] [address] [facility] [address], [facility] FRANCIS [place] [facility] [place] & José Antonio [address] [facility] [place] [place] [address] * CT Chest with IV Contrast (07/05/2022 8:01 AM LANDFILL ATTENDANT) Anatomical Region Laterality Modality Chest, Thoracic RST LOS, Tho racic ARZ LOS, Thoracic ARZ LOS, Thoracic FLA LOS N/A Computed Tomography 07/05/2022 8:43 AM LANDFILL ATTENDANT Impressions 07/05/2022 8:51 AM LANDFILL ATTENDANT 1. Spiculated left lower lobe mass, highly [...] attention at follow-up. Narrative 07/05/2022 8:51 AM LANDFILL ATTENDANT EXAM: CT CHEST WITH IV CONTRAST COMPARISON: [...] Most Recently Relevant to Health Maintenance Insurance [facility] [place] [address] Care Teams Mortgage Clerk Relationship Specialty Start Date End Date Suhail Burrows M.B.B.S., M.D. [address] [place] [address] [place] [phone] PCP - General Family Medicine 06/09/22
--- OUTSIDE RECORDS SUMMARY | 2024-03-25 14:55 | XMS_ITS | Encounter Summary ---
Author Organization [facility] Address [address] [place] [address] Care Team Providers Care Slunk Skin Curer Name Role Phone Suhail Burrows M.D. Primary Care dena Reason for Referral * Outpatient (Routine) - Closed Specialty Diagnoses / Procedures Referred By Yelena t Referred To Contact Radiation Oncology Clemente Feng M.D. [address] [place] [address] Phone: tel: fax: [facility] Region Referral ID Status Reason Start Date Expiration Date Visits Re quested Visits Authorized [id number] Closed 01/01/2024 07/02/2025 1 1 Scheduling Instructions Prior to sim * Outpatient (Routine) - Closed Specialty Diagnoses / Procedures Referred By Contac t Referred To Contact Radiation Oncology Clemente Feng M.D. [address] [place] [address] Phone: tel: fax: Clemente Feng M.D. [address] [place] [phone] Phone: tel: fax: Referral ID Status Reason Start Date Expiration Date Visits Re quested Visits Authorized [id number] Closed 10/03/2023 04/03/2025 1 1 Scheduling Instructions Brain MRI at [facility] and body imaging (as ordered by Dr. Julian) prior to visit. Please get images and reports as well as Dr. Julian's recent notes. Reason for Visit * Outpatient (Routine) - Closed Specialty Diagnoses / Procedures Referred By Contac t Referred To Contact Radiation Oncology Clemente Feng M.D. [address] [place] [phone] Phone: tel: fax: Clemente Feng M.D. [address] [place] [address] Phone: tel: fax: Referral ID Status Reason Start Date Expiration Date Visits Re quested Visits Authorized [id number] Closed 10/03/2023 04/03/2025 1 1 Encounter Details Date Type Department Care Team (Latest Contact Info) Description 01/01/2024 1:43 PM CDT - 01/01/2024 2:18 PM CDT Hospital Encounter Department of Radiation Oncology in [place], [place] [address] [place] [address] Clemente Feng M.D. [address] [place] [phone] Secondary Malignant Neoplasm Brain (HCC) (Primary Dx); [...] = 0.6 oz pur e alcohol) rare [facility] Utilities Answer Date Recorded In the past 12 months has [employer], gas, oil, or water [employer] at work threatened to shut off services in your [...] your living situation today? 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 - 01/01/2024 2:00 PM CDT SUBJECTIVE CHIEF COMPLAINT/REASON FOR VISIT 1. Secondary Malignant Neoplasm Brain (HCC) 2. Secondary Malignant Neoplasm Bone (HCC) 3. Secondary Malignant Neoplasm Lymph Node Intrathoracic (HCC) 4. 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) CUG-KVTM-GM-FACE PHONE VISIT This visit was performed by telephone call today. Call initiation: 2:04 p.m. Call completion: 2:12 p.m. Total duration: 8 minutes HISTORY OF PRESENT ILLNESS Miss Sandrine Deleon is a 63 y.o. 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 She completed radiotherapy gastrohepatic/peripancreatic lymph nodes and a lesion in the left S1 region on September 26, 2023. She had a PET/CT scan on December 26, 2023 that showed some progression in bilateral external iliac lymph nodes. Her oncologic history is as [...] increasing prominent FDG avidity, SUV max 17.36. 09/20/2023 - 09/26/2023 Radiation Therapy Radiotherapy to gastrohepatic/peripancreatic lymph nodes and a lesion in the left S1 region initiated on September 20, 2023; completed on September 26, 2023; both sites receiving 2500 cGy in 5 fractions. 11/03/2023 Critical Imaging MR Brain IMPRESSION: 1. Stable punctate foci of enhancement of the left ugalde radiata and left middle cerebellar peduncle consistent with known metastases. 2. 2 mm enhancing metastasis of the right superior frontal gyrus at the vertex is more conspicuous compared to 08/24/2023 but unchanged from 06/26/2023. 3. A previously noted enhancing nodule at the ventral margin of the right midbrain is not evident on the current exam. 4. No new abnormal enhancement or enhancing lesions elsewhere. 5. No acute intracranial abnormality. 6. Mild generalized cerebral volume loss. Patchy T2/FLAIR signal hyperintensity within the white matter of both cerebral hemispheres which likely represents a combination of chronic deep white matter small vessel ischemic changes and posttreatment changes. 12/26/2023 Critical Imaging PET/CT Findings: Compared to the prior examination, the FDG avid left lower lobe pulmonary nodule is not significantchanged in size measuring 1.7 x 1.7 cm and demonstrates mild FDG avidity maximum SUV 2.7, previously 3.7. There are FDG avid mediastinal and left hilar lymph nodes, most FDG avid with maximum SUV 6.0previously 7.6. Stable posterior right upper lobe pulmonary nodule measuring 6 mm with maximum SUV 1.1 A right axillary lymph node is unchanged in size measuring 7 mm short axis with maximum SUV 2.7. A left external iliac lymph node is increased in size measuring 8 mm with maximum SUV 16.2. Right external iliac lymph node measures 5 [...] ala with maximum SUV 5.4, previously 7.8 MR Brain Impression: 1. Stable or slightly improved scattered punctate intracranial metastatic foci. 2. No new or progressing metastatic foci identified. 3. No acute intracranial process. 4. Moderate chronic ischemic microvascular disease INTERVAL HISTORY The patient reports that she is feeling well. She had no abdominal or back pain after her treatmentin September. She denies any headaches. ASSESSMENT / PLAN #1 Stage IVB (cT2a, [...] progression in bilateral external iliac lymph nodes The patient has had a good response to the treatment that she received 2 lymph nodes and the left S1 region in September on her recent PET/CT scan. However, she does have 2 new external iliac lymph nodesthat are FDG avid, 1 in the right, and 1 on the left. I spoke with Dr. Julian about this last week,and she questioned about potential radiotherapy to these areas. The patient is open to this. She has a lab draw tomorrow afternoon at [facility]. We will see her tomorrow around this time. She will have an IV start and will drink oral contrast 1 hour prior to her CT simulation at 3:00 p.m.the patient verbalized satisfaction with this plan and was appreciative of the call. Signed by: Clemente Feng M.D. 01/01/24 2:18 PM CDT [facility] [place] documented in this encounter Miscellaneous Notes * Addendum Note - Clemente Feng M.D. - 01/01/2024 2:00 PM CDTEncounter addended by: Clemente Feng M.D. on: 01/01/2024 2:50 PM Actions taken: Order list changed documented in this encounter Plan of Treatment Upcoming Encounters Date Type Department Care Team (Late st Contact Info) Description 04/02/2024 10:00 AM CDT Appointment Department of Radiology in [place], [place] [address] [place] [address] Lakisha Julian M.D. [address] [place] [address] Discharge Disposition: Home or Self Care 04/08/2024 2:00 PM CDT Appointment Department of Radiation Oncology in [place], [place] [address] [place] [address] Clemente Feng M.D. 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 [address] [place], [place] [address]ibaJOSEFA stahl [phone] PCP - General Family Medicine 06/09/22 documented as of this encounter
--- OUTSIDE RECORDS SUMMARY | 2024-03-25 14:55 | XMS_ITS | Encounter Summary ---
Author Organization [facility] Address [address] [place] [address] Care Team Providers Care Layer Out Plate Glass Name Role Phone Suhail Burrows M.D. Primary Care P dena Reason for Visit * Reason Onset Date Comments Results 11/20/2023 Encounter Details Date Type Department Care Team (Late st Contact Info) Description 11/20/2023 Clinical Communication Department of Family Medicine, [facility], in [place], [place] [address] [place] [address] Suhail Burrows M.B.B.S., [place] [address] [place] [address] Results Social History Tobacco Use Types Packs/Day Years Used Date Smoking Tobacco: Former Cigarettes 1 30.2 1 993 - 08/10/2022 Smokeless Tobacco: Never Alcohol Use Standard Drinks/Week Comments Yes 0 (1 standard drink = 0.6 oz pur e alcohol) rare [facility] Utilities Answer Date Recorded In the past 12 months has [place] electric, gas, oil, or water company threatened [...] your living situation today? 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 [address] [place] [address] Discharge Disposition: Home or Self Care 04/08/2024 2:00 PM CDT Appointment Department of Radiation Oncology in [place], [place] [address] [place] [address] Clemente Feng M.D. [address] [place] [address] documented as of this encounter Visit Diagnoses Not on filedocumented in this encounter Care Teams Layer Out Plate Glass Relationship Specialty Start Date End Date Suhail Burrows M.B.BHectorSHector, MChika. [address] [place] [phone] PCP - General Family Medicine 06/09/22 documented as of this encounter
--- OUTSIDE RECORDS SUMMARY | 2024-03-25 14:55 | XMS_ITS | Clinical Summary ---
Author Organization [employer] [facility] Address [place], [place] [address] Care Team Providers Care Poultry Hanger Name Role Phone Suhail Burrows Primary Care [...] Date Diagnosed Date Adenomatous colon polyp 05/24/2016 Overview (05/24/2016): Colonoscopy 05/2016 polyp repeat in 5 years Restless legs syndrome 02/24/2015 ASCUS with positive high risk HPV 08/29/2013 Genital warts 05/04/2012 Elevated blood pressure read ing without diagnosis of hypertension 07/12/2011 Breast microcalcifications 04/19/2010 Melanoma of skin, site unspecified 04/01/2010 Overview (04/01/2010): Right arm 2000 Tobacco abuse 04/01/2010 ASCUS with positive high risk HPV cervical Overview (01/02/2018): 07/08/16: Seville: GROVER 1 08/03/16: LEEP: Negative, Ecto: Positive [...] Comments Blood Pressure 209/91 06/09/2022 1:58 PM CREAM DIPPER Pulse 77 06/09/2022 1:58 PM CREAM DIPPER Temperature 36.9 ??C (98.4 ??F) 06/09/2022 12:[address] Respiratory Rate 16 06/09/2022 12:12 PM CREAM DIPPER Oxygen Saturation 95% 06/09/2022 1:58 PM CREAM DIPPER Inhaled Oxygen Concentration - - Weight 56.7 kg (125 lb) 06/09/2022 12:12 PM CREAM DIPPER Height 157.5 cm (5' 2) 06/09/2022 12:12 PM CREAM DIPPER Body Mass Index 22.86 06/09/2022 12:12 PM CREAM DIPPER Plan of Treatment Health Maintenance Due Date [...] 05/20/2016, 05/20/2016 COVID-19 vaccine series ( season) 2024 06/17/2021, 10/20/2020, 09/29/2020 Influenza for age 50-64 02/11/2024 04/12/20 16, 02/24/2015, 04/12/2012, Additional history exists Tdap Completed 04/01/2010 Pneumococcal series for age 6-64 Aged Out No longer eligible based on patient's age to complete this topic Procedures Procedure Name Priority Date/Time Associated Diagnosis Comments TRUCK PACKER THIN PREP PAP SCREEN IMAGED Routine 12/21/2017 9:46 AM CDT Cervical cancer screening XR MAMMO BILAT SCREENING Routine 12/21/2017 8:29 AM CDT Visit for screening mammogram COLONOSCOPY 05/20/2016 10:00 AM CREAM DIPPER LIPID PANEL W REFLEX MEASURED LDL Routine 02/24/2015 11:27 AM CDT Screening, lipid from Last 3 Months or Most Recently Relevant to Health Maintenance Results * (ABNORMAL) TRUCK PACKER THIN PREP PAP SCREEN IMAGED (12/21/2017 9:46 AM CDT) Case Report Gynecologic Cytology Report ? Case: [id number] ? Authorizing Provider: ??Tavia Flores, ??Collected: ? 12/21/2017 0946 ? MD ? Ordering Location: ? [facility] ?? Received: ?12/21/2017 0948 ? Clinic ? First Screen: ?Yue Pop ? Pathologist: ? Catalina Medina ? MD Jelly ? Specimen: ?TRUCK PACKER ThinPrep Vial Screening, Cervical ? 12/29/2017 4:20 PM CDT [facility] INTERPRETATION/ RESULT LOW GRADE SQUAMOUS INTRAEPITHELIAL LESION (LSIL)(A) (none) 12/29/2017 4:20 PM CDT [facility] IMEN ADEQUACY Satisfactory for evaluation Endocervical component present 12/29/2017 4:20 PM CDT [facility] HPV REQUEST HPV and PAP 12/29/2017 4:20 PM CDT [facility] Date of LMP menospausal 12/29/2017 4:20 PM CDT [facility] Last Pap Date 04/12/16 12/29/2017 4:20 PM CDT [facility] Last Pap Result ASCUS 8 4:20 PM CDT [facility] Abnormal Pap or Seville Bx in last 5 years Yes 12/29/2017 4:20 PM CDT [facility] Menstrual Status Postmenopausal 12/29/2017 4:20 PM CDT [facility] Seville Bx Done Today No 12/29/2017 4:20 PM CDT [facility] Additional Information None given 12/29/2017 4:20 PM CDT [facility] Automated Review Successful 12/29/2017 4:20 PM CDT [facility] Comment:Specimen processed s uccessfully by automated mortgage professional device, ThinPrep Imaging System, [employer] ANCILLARY TESTING TRUCK PACKER HPV Ordered, Please see separate report 12/29/2017 4:20 PM CDT [facility] Note The pap test is a [...] lesions. Cytology is screened and interpreted at [facility] - [address], [place] [address] and [facility] - [address]; [place] [address] and [facility] - [address]; [place] [address] and [facility] [address]; [place] [address] 12/29/2017 4:20 PM CDT [facility] Other (Cervical) Non-Blood / Unknown 12/21/2017 9:46 AM CDT 12/21/2017 9:48 AM CDT Tavia Flores MD PATHOLOGY/[facility] [address] [place] [address], [place] * XR MAMMO BILAT SCREENING (12/21/2017 8:29 AM CDT) Anatomical Region Laterality Modality BREASTS, Breast Left, Breast Right Bilateral Mammography Impressions 12/21/2017 12:23 PM CDT ??There is no radiographic evidence for malignancy. ??Recommend annual mammograms. A lay language report of this examination will be provided to the patient. MAMMOGRAM ASSESSMENT: ??ACR 2 Benign Narrative 12/21/2017 12:23 PM CDT XR MAMMO BILAT SCREENING [[id number]] CLINICAL HISTORY: ??This is an asymptomatic 57 y.o. patient. INDICATION FOR EXAM: Mammogram Screening. TECHNIQUE: CC & MLO views were obtained. ??This digital study was evaluated with the assistance of Computer-Aided Detection. COMPARISON FILMS: Yes 04/18/16 [facility] 02/24/15 [facility] FINDINGS: ??Mammographically, the breast tissue is heterogeneously dense. ?? No suspicious masses or microcalcifications. ??Benign appearing calcifications within both breasts. Tavia Flores MD MAMMO * COLONOSCOPY (05/20/2016 10:00 AM CREAM DIPPER) 05/20/2016 10:0 0 AM CREAM DIPPER Narrative Transcriptions Keenan Rivera MD - 05/20/2016 [...] adequate candidate for conscious sedation. The [id number] was passed through the anus and advanced [...] 10:00 AM Procedure Code(s): --- Professional --- 17108, Colonoscopy, flexible; with removalof tumor(s), polyp(s), or other lesion(s) bysnare technique 86585, 59, Colonoscopy, flexible; withbiopsy, single or multiple Diagnosis Code(s): --- Professional --- Z80.0, Family history of malignant neoplasmof digestive organs D12.2, Benign neoplasm of ascending colon K62.1, Rectal polyp K64.8, Other hemorrhoids CPT copyright 2015 [employer]. All rights reserved. The codes documented in this report are preliminary and upon accounting clerks supervisor reviewmay be revised to meet current compliance requirements. Scope In: 10:10:21 AM Scope Withdrawal Time 0 hours 17 minutes 34 seconds Scope Out: 10:34:16 AM Keenan Rivera MD PROCEDURE ORD * (ABNORMAL) LIPID PANEL W REFLEX MEASURED LDL (02/24/2015 11:27 AM CDT) CHOLESTEROL,TOTAL 243(H) 100 - 199 mg/dL 02/24/2015 11:58 AM CDT [facility] TRIGLYCERIDES 68 <150 mg/dL 02/24/2015 11:58 AM CDT [facility] HDL CHOLESTEROL 59 >40 mg/dL 02/24/2015 11:58 AM CDT [facility] NON-HDL CHOLESTEROL 184(H) <145 mg/dl 02/24/2015 11:58 AM CDT [facility] CHOL/HDL RATIO 4.12 <4.50 02/24/2015 11:58 AM CDT [facility] LDL CHOLESTEROL 170(H) <=130 mg/dL 02/24/2015 11:58 AM CDT [facility] PATIENT STATUS FASTING 02/24/2015 11:58 AM CDT [facility] Blood specimen (specimen) BLOOD SPECIMEN / Unknown Venipuncture / Unknown 02/24/2015 11:27 AM CDT 02/24/2015 11:27 AM CDT Tavia Flores MD CHEMISTRY [facility] [address] [place] [address], [place] [phone] from Last 3 Months or Most Recently Relevant to Health Maintenance Care Teams Poultry Hanger Relationship Specialty Start Date End Date Suhail Burrows MBBS [address] [facility] [place] [phone] PCP - General Family Practice 07/01/22
--- OUTSIDE RECORDS SUMMARY | 2024-03-25 14:55 | XMS_ITS | Encounter Summary ---
Author Organization [facility] Address [address] [place] [address] Care Team Providers Care Human Resources Hr Generalist Name Role Phone Suhail Burrows M.D. 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 [address] [place] [address] Phone: tel: fax: [facility] Region Referral ID Status Reason Start Date Expiration Date Visits Re quested Visits Authorized [id number] Closed 12/29/2023 12/28/2024 1 1 Encounter Details Date Type Department Care Team (Latest Contact Info) Description 01/02/2024 2:59 PM CDT - 01/02/2024 3:57 PM CDT Hospital Encounter Department of Radiation Oncology in [place], [place] [address] [place] [address] Clemente Feng M.D. [address] [place] [address] Secondary Malignant Neoplasm Bone (HCC); Secondary Malignant Neoplasm Intrapelvic Lymph Node (HCC) Social History Tobacco Use Types Packs/Day Years Used Date Smoking Tobacco: Former Cigarettes 1 30.2 1 993 - 08/10/2022 Smokeless Tobacco: Never Alcohol Use Standard Drinks/Week Comments Yes 0 (1 standard drink = 0.6 oz pur e alcohol) rare [facility] Utilities Answer Date Recorded In the past 12 months has e [employer], gas, oil, or water [employer] threatened to shut off services in your [...] your living situation today? 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 Gender Identity Female 11/17/2023 2:56 PM [...] Procedure Notes * Lorena Cerna, RTT - 01/02/2024 3:30 PM CDTAssociated Order(s): Initial Rad Onc Treatment Planning CT Simulation Pre-Procedure Diagnose(s): Secondary Malignant Neoplasm Bone (HCC); Secondary Malignant Neoplasm Intrapelvic Lymph Node (HCC) Post-Procedure Diagnose(s): Secondary Malignant Neoplasm Bone (HCC); Secondary Malignant Neoplasm Intrapelvic Lymph Node (HCC) Initial Rad Onc Treatment Planning CT [...] Contrast used for the simulation procedure: IV and Oral Patient position:head first supine Custom immobilization: Vac-hanna Motion management: None Bolus: [...] imaging was appropriate and completed without incident. Flour Tester use:No Cosigned by Clemente Feng M.D. at 01/02/2024 3:57 PM CDT Associated attestation - Clemente Feng M.D. - 01/02/2024 3:57 PM CDT I was available for the entirety of the procedure but only present for image review. Signed by: Clemente Feng M.D. 01/02/24 3:57 PM CDT [facility] Radiation Therapy [facility] documented in this encounter Miscellaneous Notes * Addendum Note - Clemente Feng M.D. - 01/02/2024 3:30 PM CDTEncounter addended by: Clemente Feng M.D. on: 01/02/2024 3:57 PM Actions taken: Level of Service modified documented in this encounter Plan of Treatment Upcoming Encounters Date Type Department Care Team (Late st Contact Info) Description 04/02/2024 10:00 AM CDT Appointment Department of Radiology in [place], [place] [address] [place] [address] Lakisha Julian M.D. [facility] [place] [phone] Discharge Disposition: Home or Self Care 04/08/2024 2:00 PM CDT Appointment Department of Radiation Oncology in [place], [place] [address] [place] [address] Clemente Feng M.D. 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 01/02/2024 ??3:54 PM Initial Rad Onc Treatment Planning CT Simulation Performed by: Clemente Feng M.D. Authorized by: Clemente Feng M.D. ?? Clemente Feng M.D. 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 [address] [place] [phone] PCP - General Family Medicine 06/09/22 documented as of this encounter
--- OUTSIDE RECORDS SUMMARY | 2024-03-25 14:55 | XMS_ITS | Encounter Summary ---
Author Organization [facility] Address [address] [place] [address] Care Team Providers Care Trim Die Maker Name Role Phone Suhail Burrows M.D. Primary Care dena Reason for Referral * Outpatient (Routine) - Closed Specialty Diagnoses / Procedures Referred By Yelena griffin Referred To Contact Radiation Oncology Clemente Feng M.D. [address] [place] [phone] Phone: tel: fax: [facility] Region Referral ID Status Reason Start Date Expiration Date Visits Re quested Visits Authorized [id number] Closed 01/01/2024 07/02/2025 1 1 Scheduling Instructions Prior to sim Reason for Visit * Outpatient (Routine) - Closed Specialty Diagnoses / Procedures Referred By Yelena griffin Referred To Contact Radiation Oncology Clemente Feng M.D. [address] [place] [address] Phone: tel: fax: [facility] Region Referral ID Status Reason Start Date Expiration Date Visits Re quested Visits Authorized [id number] Closed 01/01/2024 07/02/2025 1 1 Encounter Details Date Type Department Care Team (Latest Contact Info) Description 01/02/2024 1:25 PM CDT - 01/02/2024 2:47 PM CDT Hospital Encounter Department of Radiation Oncology in [place], [place] [address] [place] [address] Clemente Feng M.D. 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 Gender Identity Female 11/17/2023 2:56 PM CDT Sexual Orientation Straight 11/17/2023 2: 56 PM CDT documented as of this encounter Last Filed Vital Signs Vital Sign Reading Time Taken Comments Blood Pressure 118/65 01/02/2024 1:37 PM CDT Pulse 64 01/02/2024 1:37 PM CDT Temperature 36.7 ??C (98.1 ??F) 01/02/2024 1:37 PM CD T Respiratory Rate - - Oxygen Saturation - - Inhaled Oxygen Concentration - - Weight 48.6 kg (107 lb 2.3 oz) 01/02/2024 1:37 P M CDT Height - - Body Mass Index 19.72 11/17/2023 3:03 PM CDT documented in this [...] as of this encounter Progress Notes * Yusar Love APRN, C.N.P., D.N.P. - 01/02/2024 1:45 PM CDT SUBJECTIVE REQUESTING PROVIDER Clemente Feng M.D. REASON FOR CONSULT 1. Secondary Malignant Neoplasm Intrapelvic Lymph Node (HCC) 2. 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 ([id number]) HISTORY OF PRESENT ILLNESS Miss Sandrine Deleon is a 63 y.o. 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 She completed radiotherapy to gastrohepatic/peripancreatic lymph nodes and a lesion in the left S1 region on September 26, 2023. She had a PET/CT scan on December 26, 2023 that showed some progression in bilateral external iliac lymph nodes and her left acetabulum. She returns for radiation treatment to the new areas. Her oncologic history is as follows: Oncology [...] ischemic microvascular disease INTERVAL HISTORY The patient was seen and examined today with Dr. Feng. The patient reports feeling well overall. She denies any pain in the left hip. She denies any pain in general. She denies any specific change in bowel or bladder habits. She denies any new lumps or bumps. She denies any changes overall. Her ECOG performance status is 0. REVIEW OF SYSTEMS Review of systems was negative except as documented above. OBJECTIVE BP 118/65 (BP Location: Right arm, Patient Position: Sitting, Cuff Size: Regular) Pulse 64 Temp36.7 ??C (Temporal) Wt 48.6 kg BMI 19.72 kg/m?? PHYSICAL EXAM General: Patient is alert and oriented in no apparent distress. Neck: Supple. Lymph: No palpable cervical, supraclavicular, infraclavicular, axillary or inguinal adenopathy. Lungs: Clear to auscultation bilaterally. Heart: Regular rate and rhythm. Normal S1 and S2. Abdomen: Soft, non-tender, non-distended. Normal active bowel sounds are present. Extremities: No pain to palpation in bilateral hips ASSESSMENT / PLAN #1 Stage IVB (cT2a, [...] external iliac lymph nodes and left acetabulum It was a pleasure to meet with Sandrine today. She talked with Dr. Feng on the phone yesterday about the role of radiation treatment to 2 new PET positive bilateral external iliac lymph nodes and her left acetabulum. Please review that note for further information. She is here today to undergo a planning scan for additional radiation treatment to those areas. I reviewed the risks, benefits, and alternatives of radiotherapy in this setting. We discussed the recommendation for radiation treatment to the PET positive bilateral external iliac lymph nodes and left acetabulum in 3 or 5 fractions. I discussed the logistics, as well as, the acute and chronic side effects of treatment in detail. The acute side effects may include, but are not limited to, diarrhea, increased frequency and urgencywith bowel movements or urination, increased pain with bowel movements or urination, pain flare, bloating/gaseous discomfort, and fatigue. Long-term side effects can be rare and may include, but are not limited to, sacral nerve damage, blood in the urine or stool, hip arthritis, vaginal dryness, rectal narrowing, sacral insufficiency fracture, and risk of developing a secondary malignancy. The patient was provided with a written summary of recommendations. Her questions were answered to their ve rbalized satisfaction. After discussion, the patient verbally stated that she would like to proceed with treatment. She will undergo CT simulation today. We anticipate starting radiation therapy in the next 1-2 weeks. Patient seen in collaboration with Dr. Feng, please review his attestation for additional information. The patient was provided with our contact information. She was asked to contact us with questionsor concerns. She verbally expressed her understanding of [...] patient care. Signed by: Yusra Love APRN, Dean.N.PHector, D.N.P. 01/02/2024 2:15 PM CDT [facility] [address] [place] [address] Cosigned by Clemente Feng M.D. at 01/02/2024 3:50 PM CDT Associated attestation - Clemente Feng M.D. - 01/02/2024 3:50 PM CDT I saw and evaluated the [...] some progression in bilateral external iliac lymph nodes and the left anterior acetabulum. I spoke with her by phone yesterday about treating these areas with stereotactic body radiation therapy. She presents today for CT simulation The patient appears well on exam. She is here with her significant other Josef. ASSESSMENT / PLAN #1 Stage IVB [...] external iliac lymph nodes and left acetabulum I had a detailed discussion with the patient and Josef regarding the risks, benefits, and alternatives of stereotactic body radiotherapy to the areas of progression in the pelvis. I recommend treatment to a dose of 30 Gy in 3 or 5 fractions. SBRT is indicated because of potential overlap with the prior radiotherapy in her pelvis and so as to spare high radiation dose to the adjacent small bowel, bladder, rectum, and hips. We reviewed the logistics as well as the side effects of treatment. For a complete listing of these, please see Ms. Love's note. After this discussion, we provided her with a written summary of our recommendations. Her questionswere answered to her verbalized satisfaction and she stated that she would like to proceed with treatment. She signed the consent form. She will undergo CT simulation today with both oral and IV contrast. We will endeavor to begin treatment on Friday, February 09, 2024. The patient verbalized satisfaction with this plan. I have spent 10 minutes caring for this patient including [id number] and vrj-wlnb-[id number]-face time. Signed by: Clemente Feng M.D. 01/02/24 3:50 PM CDT [facility] Radiation Therapy [facility] documented in this encounter Miscellaneous Notes * Addendum Note - Jennifer Day, C.N.A. - 01/02/2024 1:45 PM CDTEncounter addended by: Jennifer Day, C.N.A. on: 01/03/2024 7:11 AM Actions taken: Letter saved documented in this encounter Plan of Treatment Upcoming Encounters Date Type Department Care Team (Late st Contact Info) Description 04/02/2024 10:00 AM CDT Appointment Department of Radiology in [place], [place] [address] [place] [address] Lakisha Julian M.D. [address] [place] [phone] Discharge Disposition: Home or Self Care 04/08/2024 2:00 PM CDT Appointment Department of Radiation Oncology in [place], [place] [address] [place] [address] Clemente Feng M.D. [address] [place] [address] Scheduled Referrals Name Type Priority Associated Diagnoses Order Schedule Radiation Oncology office visit (clinic) Outpatient Referral Routine Once for 1 Occurrences starting 01/02/2024 until 01/02/2024 documented as of this encounter Visit Diagnoses Diagnosis Secondary Malignant Neoplasm Intrapelvic Lymph Node (HCC)- Primary 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) documented in this encounter Care Teams Trim Die Maker Relationship Specialty Start Date End Date Suhail Burrows M.B.B.S., M.D. [address] [place] [phone] PCP - General Family Medicine 06/09/22 documented as of this encounter
--- OUTSIDE RECORDS SUMMARY | 2024-03-25 14:55 | XMS_ITS | Encounter Summary ---
Author Organization [facility] Address [address] [place] [address] Care Team Providers Care Embroidery Finisher Name Role Phone Suhail Burrows M.D. 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 [address] [place] [address] Phone: tel: fax: [facility] [address] [place] [address] Referral ID Status Reason Start Date Expiration Date V isits Requested Visits Authorized [id number] Authorized 01/09/2024 06/11/2024 5 5 Encounter Details Date Type Department Care Team (Late st Contact Info) Description 12/29/2023 Orders Only Department of Radiation Oncology in [place], [place] [address] [place] [phone] Yusra Love APRN, C.N.P., D.N.P. 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 [address] [place] [phone] Discharge Disposition: Home or Self Care 04/08/2024 2:00 PM CDT Appointment Department of Radiation Oncology in [place], [place] [address] [place] [address] Clemente Feng M.D. [address] [place] [address] Scheduled Orders Name Type Priority Associated Diagnoses Orde r Schedule Prior Auth Rad Tx Radiation Oncology Routine 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) Ordered: 12/29/2023 documented as of this encounter Results * Initial Rad Onc Treatment Planning CT Simulation (01/02/2024 3:30 PM CDT) Narrative AMBERLY RUFFIN - 01/02/2024 3:30 PM CDT ErynLorena jacob, RTT ? 01/02/2024 ??3:54 PM Initial Rad Onc Treatment Planning CT Simulation Performed by: Clemente Feng M.D. Authorized by: Clemente Feng M.D. ?? Clemente Feng M.D. 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 [address] [place] [phone] PCP - General Family Medicine 06/09/22 documented as of this encounter
--- OUTSIDE RECORDS SUMMARY | 2024-03-25 14:55 | XMS_ITS | Encounter Summary ---
Author Organization [facility] Address [address] [place] [address] Care Team Providers Care Bufferer Name Role Phone Suhail Burrows M.D. 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 [address] [place] [address] Phone: tel: [facility] Referral ID Status Reason Start Date Expiration Date Visits Re quested Visits Authorized [id number] Closed 10/11/2023 10/10/2024 1 1 Reason for Visit * MRI/CAT/PET Scan (Routine) - Closed Specialty Diagnoses / Procedures Referred By Yelena griffin Referred To Contact Diagnoses 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) Procedures PET CT Skull to Thigh FDG Lakisha Julian M.D. [address] [place] [address] Phone: tel: fax: [facility] Region Referral ID Status Reason Start Date Expiration Date Visits Re quested Visits Authorized [id number] Closed 10/11/2023 10/10/2024 1 1 Encounter Details Date Type Department Care Team (Latest Contact Info) Description 12/26/2023 8:37 AM CDT - 12/26/2023 11:59 PM CDT Hospital Encounter Department of Radiology in [place], [place] [address] [place] [address] Lakisha Julian M.D. [address] [place] [address] 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) Discharge Disposition: Home or Self Care Social History Tobacco Use Types Packs/Day Years Used Date Smoking Tobacco: Former Cigarettes 1 30.2 1 993 - 08/10/2022 Smokeless Tobacco: Never Alcohol Use Standard Drinks/Week Comments Yes 0 (1 standard drink = 0.6 oz pur e alcohol) rare [facility] Utilities Answer Date Recorded In the past 12 months has [employer], gas, oil, or water [employer] threatened to shut off services in your [...] your living situation today? 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 [address] [place] [phone] Discharge Disposition: Home or Self Care 04/08/2024 2:00 PM CDT Appointment Department of Radiation Oncology in [place], [place] [address] [place] [phone] Clemente Feng M.D. [address] [place] [address] documented as of this encounter Procedures Procedure [...] intravenous fludeoxyglucose F 18 injection CUSTODIAL (FDG F-18),13 millicurie Procedure Note Yousif Velasco [...] intravenous fludeoxyglucose F 18 injection CUSTODIAL (FDG F-18),13 millicurie IMPRESSION: 1. Mixed disease response with progressed bilateral external iliaclymphadenopathy. Remaining sites of metastatic disease are stable todecreased as detailed above. 2. Stable dilation of the ascending thoracic aorta. Lakisha [facility] M.[facility]. [facility] Final Resu lt documented in this encounter Visit Diagnoses Diagnosis 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) documented in this encounter Administered Medications Inactive Administered Medications - up to 3 most recent administrations Medication Order MAR Action Action Date Dose Rate Site fludeoxyglucose F 18 injection CUSTODIAL (FDG F-18) 13 millicurie, intravenous, Once, On Mon12/26/23 at 0915, For 1 dose, Imaging Protocol Orders Given 12/26/2023 8:50 AM CDT 13 millicuries Left Antecubital documented in this encounter Care Teams Bufferer Relationship Specialty Start Date End Date Suhail Burrows M.B.BHectorSHector, MChika. [address] [place] [address] [place] [phone] PCP - General Family Medicine 06/09/22 documented as of this encounter
--- NOTE | 2024-03-25 15:30 | CRLHL7_ITS ---
For Patients: As a result of the Century Cures Act, medical imaging exams and procedure reports are released immediately into your electronic medical record. You may view this report before your referring provider. If you have questions, please contact your health care provider. Indication: Malignant neoplasm, metastasis Technique: Multiplanar, multisequence MRI of the brain obtained without and with contrast. A total of 10 mL of Dotarem IV contrast was administered. Comparison: MRI brain 12/26/2023 Findings: Relative to the 12/26/2023 MRI, no new enhancing intracranial lesions are identified. There is a stable tiny enhancing focus in the left ugalde radiata (series 1025, image 66). A tiny enhancing focus at the right superior frontal gyrus has nearly completely resolved with faint residual (series 1025, image 37). Previous enhancing foci at the left precentral gyrus and left brachium pontis are no longer visualized. No evidence for recent hemorrhage or infarct. No midline shift, hydrocephalus or herniation. Patchy and confluent FLAIR hyperintense signal changes throughout the supratentorial white matter, typical of chronic microangiopathy and/or posttreatment change. Major intracranial vasculature is unremarkable for technique. No suspicious bone marrow lesions. Small intrinsically T1 hyperintense focus at the left posterior parietal calvarium may represent a small hemangioma. No obstructive paranasal sinus disease or mastoid effusion. Unremarkable orbits. Impression: 1. Stable tiny enhancing focus in the left ugalde radiata. Improved/nearly resolved tiny enhancing focus at the right superior frontal gyrus. 2. Interval resolution of previous enhancing foci at the left precentral gyrus and left brachium pontis. 3. No new metastatic lesions identified. No acute intracranial abnormality. Dictated by Mera Victor MD @ 03/26/2024 10:45:21 AM (Electronically Signed)
== END 2024-03-25 14:49 | disposition home or self-care (01) ==
LOC: MRI 14:48
PROVIDERS: PCP Family Medicine; Visit Provider Internal Medicine Hematology & Oncology
DX: C34.92 Malignant neoplasm of unspecified part of left bronchus or lung (principal)
CPT/HCPCS: 36415; 70553; 80053; 84443; 85025; A9575

== ENCOUNTER 2024-04-05 08:40 | Outpatient (CLI) | payer BC, SELFPAY ==
--- OUTSIDE RECORDS SUMMARY | 2024-04-05 08:44 | XMS_ITS | Encounter Summary ---
Author Organization [facility] Address [address] [place] [address] Care Team Providers Care Production Service Manager Name Role Phone Suhail Burrows M.D. 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 [address] [place] [address] Phone: tel: fax: [facility] Referral ID Status Reason Start Date Expiration Date Visits Re quested Visits Authorized [id number] Closed 12/29/2023 12/28/2024 1 1 Encounter Details Date Type Department Care Team (Latest Contact Info) Description 01/02/2024 2:48 PM CDT - 01/03/2024 11:20 AM CDT Hospital Encounter Department of Radiation Oncology in [place], [place] [address] [place] [phone] Clemente Feng M.D. [address] [place] [phone] Princess Ruiz R.N. [address] [place] [phone] 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) (Primary Dx); Secondary Malignant Neoplasm Intrapelvic Lymph Node (HCC) Social History Tobacco Use Types Packs/Day Years Used Date Smoking Tobacco: Former Cigarettes 1 30.2 1 993 - 08/10/2022 Smokeless Tobacco: Never Alcohol Use Standard Drinks/Week Comments Yes 0 (1 standard drink = 0.6 oz pur e alcohol) rare [facility] Utilities Answer Date Recorded In the past 12 months has e [employer], gas, oil, or water company threatened to [...] your living situation today? 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) documented in this encounter Administered Medications Inactive Administered Medications - up to 3 most recent administrations Medication Order MAR Action Action Date Dose Rate Site iohexoL 300 mg iodine/mL solution 1-200 mL (Omnipaque) 1-200 mL, intravenous, Once in imaging, contrast, Starting on 01/02/24 at 1501, For 1 dose, Intraprocedure (RAD), Administer 1-200 mL, dosing per medication reference document and per protocol.Indications:Secondary Malignant Neoplasm Intrapelvic Lymph Node (HCC) Given 01/02/2024 3:30 PM CDT 100 mL NaCl 0.9 % bolus 1-100 mL 1-100 mL, intravenous, at 1-100 mL/hr, Administer over 1 Hours, Once in imaging, other, Give per medication reference and protocol, Starting on 01/02/24 at 1501, For 1 dose, Intraprocedure (RAD)Indications:Secondary Malignant Neoplasm Intrapelvic Lymph Node (HCC) New Bag 01/02/2024 3:45 PM CDT 50 mL 50 mL/hr sodium chloride 0.9 % injection 10 mL 10 mL, intravenous, As needed, line care, Starting on 01/02/24 at 1544, Prior to blood sampling, post blood transfusion, or post blood sampling.Indications:Malignant Neoplasm Of Lung Lower Lobe Or Bronchus Left (HCC) Given 01/02/2024 3:38 PM CDT 10 mL Given 01/02/2024 3:28 PM CDT 10 mL documented in this encounter Care Teams Production Service Manager Relationship Specialty Start Date End Date Suhail Burrows M.B.B.S., M.Annette. [address] [place] [address] [place] [address] PCP - General Family Medicine 06/09/22 documented as of this encounter
--- OUTSIDE RECORDS SUMMARY | 2024-04-05 08:44 | XMS_ITS | Encounter Summary ---
Author Organization [facility] Address [address] [place] [address] Care Team Providers Care Robotics Technician Name Role Phone Suhail Burrows M.D. Primary Care P dena Encounter Details Date Type Department Care Team (Latest Contact Info) Description 01/17/2024 2:47 PM CDT - 01/17/2024 11:59 PM CDT Hospital Encounter Department of Radiation Oncology in [place], [place] [address] [place] [phone] Clemente Feng M.D. [address] [place] [address] Discharge Disposition: Home or Self Care Social History Tobacco Use Types Packs/Day Years Used Date Smoking Tobacco: Former Cigarettes 1 30.2 1 993 - 08/10/2022 Smokeless Tobacco: Never Alcohol Use Standard Drinks/Week Comments Yes 0 (1 standard drink = 0.6 oz pur e alcohol) rare [facility] Utilities Answer Date Recorded In the past 12 months has [employer], gas, oil, or water company threatened [...] your living situation today? 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 [address] [place] [address] documented as of this encounter Visit Diagnoses Not on filedocumented in this encounter Care Teams Robotics Technician Relationship Specialty Start Date End Date Suhail Burrows M.B.B.S., M.D. [address] [place] [phone] PCP - General Family Medicine 06/09/22 documented as of this encounter
--- OUTSIDE RECORDS SUMMARY | 2024-04-05 08:44 | XMS_ITS | Encounter Summary ---
Author Organization [facility] Address [address] [place] [address] Care Team Providers Care Hospitality Director Name Role Phone Suhail Burrows M.D. Primary Care P dena Reason for Referral * Outpatient (Routine) - Authorized Specialty Diagnoses / Procedures Referred By Yelena griffin Referred To Contact Radiation Oncology Yusra Love APRN, C.N.PHector, D.N.P. [address] [place] [phone] Phone: tel: fax: Clemente Feng M.D. [address] [place] [phone] Phone: tel: fax: Referral ID Status Reason Start Date Expiration Date V isits Requested Visits Authorized [id number] Authorized 01/11/2024 07/12/2025 1 1 Scheduling Instructions Phone; after imaging ordered by Dr. 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 [address] [place] [address] Phone: tel: fax: [facility] Referral ID Status Reason Start Date Expiration Date V isits Requested Visits Authorized [id number] Authorized 08/30/2023 08/29/2024 10 10 Encounter Details Date Type Department Care Team (Latest Contact Info) Description 01/11/2024 2:37 PM CDT - 01/11/2024 6:54 PM CDT Hospital Encounter Department of Radiation Oncology in [place], [place] [address] [place] [phone] Clemente Feng M.D. 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 ([id number]) HISTORY OF PRESENT ILLNESS Miss Sandrine Deleon [...] / 600 1200 3000 01/09/2024 01/11/2024 2 [id number] 2 / 600 1200 3000 01/09/2024 01/11/2024 [...] repeat surveillance imaging with Dr. Julian at [facility]. She is encouraged to contact the [...] Clemente Feng M.D. 01/11/24 6:49 PM CDT [facility] Radiation Therapy [facility] documented in this encounter Miscellaneous Notes * Addendum Note - Jennifer Day C.NRay - 01/11/2024 4:00 PM CDTEncounter addended by: Jennifer Day CHectorNHectorAHector on: 01/15/2024 7:04 AM Actions taken: Letter saved documented in this encounter Plan of Treatment Upcoming Encounters Date Type Department Care Team (Late st Contact Info) Description 04/08/2024 2:00 PM CDT Appointment Department of Radiation Oncology in [place], [place] [address] [place] [address] Clemente Feng M.D. 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 [address] [place] [phone] PCP - General Family Medicine 06/09/22 documented as of this encounter
--- OUTSIDE RECORDS SUMMARY | 2024-04-05 08:44 | XMS_ITS | Encounter Summary ---
Author Organization [facility] Address [address] [place] [address] Care Team Providers Care Athletic Gear Custodian Name Role Phone Suhail Burrows M.D. Primary Care P dena Encounter Details Date Type Department Care Team (Latest Contact Info) Description 01/11/2024 2:36 PM CDT Hospital Encounter Department of Radiation Oncology in [place], [place] [address] [place] [phone] Clemente Feng M.D. [address] [place] [address] Discharge Disposition: Home or Self Care Social History Tobacco Use Types Packs/Day Years Used Date Smoking Tobacco: Former Cigarettes 1 30.2 1 993 - 08/10/2022 Smokeless Tobacco: Never Alcohol Use Standard Drinks/Week Comments Yes 0 (1 standard drink = 0.6 oz pur e alcohol) rare [facility] Utilities Answer Date Recorded In the past 12 months has [employer], gas, oil, or water [employer] threatened to shut off services in your [...] your living situation today? 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 [address] [place] [address] documented as of this encounter Visit Diagnoses Not on filedocumented in this encounter Care Teams Athletic Gear Custodian Relationship Specialty Start Date End Date Suhail Burrows M.B.B.S., M.D. [address] [place] [phone] PCP - General Family Medicine 06/09/22 documented as of this encounter
--- OUTSIDE RECORDS SUMMARY | 2024-04-05 08:44 | XMS_ITS | Encounter Summary ---
Author Organization [facility] Address [address] [place] [address] Care Team Providers Care Registered Associate Name Role Phone Suhail Burrows M.D. Primary Care P dena Encounter Details Date Type Department Care Team (Latest Contact Info) Description 01/15/2024 2:36 PM CDT - 01/15/2024 11:59 PM CDT Hospital Encounter Department of Radiation Oncology in [place], [place] [address] [place] [phone] Clemente Feng M.D. [address] [place] [address] Discharge Disposition: Home or Self Care Social History Tobacco Use Types Packs/Day Years Used Date Smoking Tobacco: Former Cigarettes 1 30.2 1 993 - 08/10/2022 Smokeless Tobacco: Never Alcohol Use Standard Drinks/Week Comments Yes 0 (1 standard drink = 0.6 oz pur e alcohol) rare [facility] Utilities Answer Date Recorded In the past 12 months has [employer], gas, oil, or water company threatened [...] your living situation today? 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 [address] [place] [address] documented as of this encounter Visit Diagnoses Not on filedocumented in this encounter Care Teams Registered Associate Relationship Specialty Start Date End Date Suhail Burrows M.B.B.S., M.D. [address] [place] [phone] PCP - General Family Medicine 06/09/22 documented as of this encounter
--- OUTSIDE RECORDS SUMMARY | 2024-04-05 08:44 | XMS_ITS | Encounter Summary ---
Author Organization [facility] Address [address] [place] [address] Care Team Providers Care Brim And Crown Presser Name Role Phone Suhail Burrows M.D. Primary Care P dena Encounter Details Date Type Department Care Team (Latest Contact Info) Description 01/19/2024 2:39 PM CDT - 01/19/2024 11:59 PM CDT Hospital Encounter Department of Radiation Oncology in [place], [place] [address] [place] [phone] Clemente Feng M.D. 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 [address] [place] [address] documented as of this encounter Visit Diagnoses Not on filedocumented in this encounter Care Teams Brim And Crown Presser Relationship Specialty Start Date End Date Suhail Burrows M.B.B.S., M.D. [address] [place] [phone] PCP - General Family Medicine 06/09/22 documented as of this encounter
--- OUTSIDE RECORDS SUMMARY | 2024-04-05 08:44 | XMS_ITS ---
Author Organization [facility] Address [address] [place] [address] Care Team Providers Care Shaper Operator Name Role Phone Unavailable Unavailable Unavailable Surgery Details Not on file Complications Check Surgery Details section. Procedure Estimated Blood Loss Check Surgery Details section. Procedure Findings Check Surgery Details section. Procedure Specimens Taken Check Surgery Details section.
--- OUTSIDE RECORDS SUMMARY | 2024-04-05 08:44 | XMS_ITS | Encounter Summary ---
Author Organization [facility] Address [address] [place] [address] Care Team Providers Care Molder Bench Name Role Phone Suhail Burrows M.D. 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 [address] [place] [address] Phone: tel: fax: [facility] Referral ID Status Reason Start Date Expiration Date Visits Re quested Visits Authorized [id number] Closed 02/13/2024 02/12/2025 1 1 Encounter Details Date Type Department Care Team (Late st Contact Info) Description 02/13/2024 Orders Only Department of Oncology in [place], [place] [address] [place] [address] Lakisha Julian M.D. 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 [address] [place] [address] documented as of this encounter Results * PET CT Skull to Thigh FDG (04/02/2024 10:43 AM CDT) Anatomical Region Laterality Modality Body, Nuclear Medicine PET R ST LOS, PET ARZ LOS, Nuclear Medicine PET FLA LOS, Nuclear Medicine N/A Positron Emission Tomography (PET) Impressions 04/02/2024 11:18 AM CDT 1. ??Left lower lobe pulmonary nodule is not significant changed in size but demonstrates increased FDG avidity. 2. ??Mixed response of diffuse metastatic disease with progressed right axillary and right paratracheal lymphadenopathy. Left inguinal and left hilar lymph nodes demonstrate overall decreased FDG avidity. 3. ??Increased lucency within the C7 vertebral body with associated moderate FDG avidity may represent progressed osseous metastatic disease, recommend correlation with cervical spine CT to exclude pathologic fracture. Remaining osseous metastases are not substantially changed. Narrative 04/02/2024 11:18 AM CDT EXAM: PET CT SKULL TO THIGH FDG COMPARISON: 12/26/2023 INDICATION: Metastatic lung cancer. Subsequent treatment strategy. F-[address] scan was performed from the mid calvarium through the upper thighs with CT fusion imaging for attenuation correction, anatomic coregistration, and respiratory gating only. Serum glucose at time of F-18 FDG injection: 79 mg/dL. Uptake time: 60 minutes following injection. The patient reports no recent vaccinations. FINDINGS: PET findings: A right axillary lymph node has increased in size measuring 1.2 cm short axis, previously 0.7 cm with maximum SUV 8.3, previously 2.7 on series 604 image 58. The left lower lobe pulmonary nodule is not significantly changed in size but demonstrates increased maximum SUV 4.3, previously 2.7. A left inguinal lymph node has slightly increased in size measuring 6 mm short axis, previously 4 mm with maximum SUV 3.4, previously 1.4. Additional left inguinal lymph nodes have decreased in size measuring 5 mm short axis, previously 9 mm with maximum SUV 1.1, previously 16.2 on series 604 image 197. The right paratracheal lymph node is slightly increased in size measuring 6 mm, previously 4 mm with maximum SUV 3.6, previously 2.1 on series 604 image 70. Left hilar lymph nodes demonstrate decreased FDG avidity with maximum SUV today 4.2, previously 6.0. Diffuse osseous metastatic disease is again noted. A lucent lesion in the C7 vertebral body demonstrates increased moderate FDG avidity with maximum SUV 3.6 on series 604 image 48. Remaining osseous metastases are not significant changed, the most avid involving the left sacral with maximum SUV 6.0, previously 5.4. CT findings: Stable dilation of ascending thoracic aorta measuring 4.0 cm. Calcified atherosclerosis throughout the thoracic aorta and major branches including the coronary arteries. Centrilobular and paraseptal emphysema. Stable subcentimeter pulmonary nodules are below PET resolution. Stable nonobstructing renal calculi measuring up to 2 mm in the left upper pole. Stable right upper pole renal parenchymal calcification. Severe calcified atherosclerosis throughout the abdominal aorta and major branches. Stable sclerotic osseous metastases. Increased lucency within the C7 vertebral body. RADIOPHARMACEUTICAL/MEDS: Route: intravenous fludeoxyglucose F 18 injection PRISON (FDG F-18),13.5 millicurie Procedure Note Yousif Velasco M.D. - 04/02/2024 EXAM: PET CT SKULL TO THIGH FDG COMPARISON: 12/26/2023 INDICATION: Metastatic lung cancer. Subsequent treatment strategy. F-[address] scan was performed from the mid calvarium through theupper thighs with CT fusion imaging for attenuation correction, anatomiccoregistration, and respiratory gating only. Serum glucose at time of F-18 FDG injection: 79 mg/dL. Uptake time: 60 minutes following injection. The patient reports no recent vaccinations. FINDINGS: PET findings: A right axillary lymph node has increased in size measuring 1.2 cm shortaxis, previously 0.7 cm with maximum SUV 8.3, previously 2.7 on series 604image 58. The left lower lobe pulmonary nodule is not significantlychanged in size but demonstrates increased maximum SUV 4.3, previously 2.7. A left inguinal lymph node hasslightly increased in size measuring 6 mm short axis, previously 4 mm withmaximum SUV 3.4, previously 1.4. Additional left inguinal lymph nodes havedecreased in size measuring 5 mm short axis, previously 9 mm with maximum SUV 1.1, previously 16.2 onseries 604 image 197. The right paratracheal lymph node is slightlyincreased in size measuring 6 mm, previously 4 mm with maximum SUV 3.6,previously 2.1 on series 604 image 70. Left hilar lymph nodes demonstrate decreased FDG avidity with maximum SUVtoday 4.2, previously 6.0. Diffuse osseous metastatic disease is again noted. A lucent lesion in theC7 vertebral body demonstrates increased moderate FDG avidity with maximumSUV 3.6 on series 604 image 48. Remaining osseous metastases are notsignificant changed, the most avid involving the left sacral with maximum SUV 6.0, previously 5.4. CT findings: Stable dilation of ascending thoracic aorta measuring 4.0 cm. Calcifiedatherosclerosis throughout the thoracic aorta and major branches includingthe coronary arteries. Centrilobular and paraseptal emphysema. Stablesubcentimeter pulmonary nodules are below PET resolution. Stable nonobstructing renal calculi measuring up to2 mm in the left upper pole. Stable right upper pole renal parenchymalcalcification. Severe calcified atherosclerosis throughout the abdominalaorta and major branches. Stable sclerotic osseous metastases. Increased lucency within the C7 vertebralbody. RADIOPHARMACEUTICAL/MEDS: Route: intravenous fludeoxyglucose F 18 injection PRISON (FDG F-18),13.5 millicurie IMPRESSION: 1. Left lower lobe pulmonary nodule is not significant changed in sizebut demonstrates increased FDG avidity. 2. Mixed response of diffuse metastatic disease with progressed rightaxillary and right paratracheal lymphadenopathy. Left inguinal and lefthilar lymph nodes demonstrate overall decreased FDG avidity. 3. Increased lucency within the C7 vertebral body with associatedmoderate FDG avidity may represent progressed osseous metastatic disease,recommend correlation with cervical spine CT to exclude pathologicfracture. Remaining osseous metastases are not substantially changed. 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 [address] [place] [phone] PCP - General Family Medicine 06/09/22 documented as of this encounter
--- OUTSIDE RECORDS SUMMARY | 2024-04-05 08:44 | XMS_ITS | Referral Summary ---
Author Organization [facility] Address [address] [place] [address] Care Team Providers Care Sap Bi Architect Name Role Phone Suhail Burrows M.D. Primary Care P dena Source Comments Patient records contain information from all sites at [facility]. For routine questions regarding patient records, call [phone] during business hours, M-F 8:00 AM - 5:00 PM Central Time. Record requests for emergency care only can be directed to [phone] at any time.[facility] Encounters Date Type Department Care Team Description 04/02/2024 9:05 AM CDT - 04/02/2024 11:59 PM CDT Hospital Encounter Department of Radiology in [place], [place] [address] [place] [address] Lakisha Julian M.D. 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 01/19/2024 2:39 PM CDT - 01/19/2024 11:59 PM CDT Hospital Encounter Department of Radiation Oncology in [address] [phone] Clemente Feng M.D. Discharge Disposition: Home or Self Care 01/17/2024 2:47 PM CDT - 01/17/2024 11:59 PM CDT Hospital Encounter Department of Radiation Oncology in [address] [phone] Clemente Feng M.D. Discharge Disposition: Home or Self Care 01/15/2024 2:36 PM CDT - 01/15/2024 11:59 PM CDT Hospital Encounter Department of Radiation Oncology in [address] [address] Clemente Feng M.D. Discharge Disposition: Home or Self Care 01/11/2024 2:37 PM CDT - 01/11/2024 6:54 PM CDT Hospital Encounter Department of Radiation Oncology in [address] [address] Clemente Feng M.D. 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 Discharge Disposition: Home or Self Care 01/09/2024 2:53 PM CDT - 01/09/2024 11:59 PM CDT Hospital Encounter Department of Radiation Oncology in [address] [phone] Clemente Feng M.D. Discharge Disposition: Home or [...] Significanc e Cervix 08/29/2013 Overview (06/20/2022): 07/08/16: [place]: GROVER 1 08/03/16: LEEP: Negative, Ecto: Positive [...] e alcohol) rare [facility] Utilities Answer Date Recorded In the past 12 months has th e [employer], gas, oil, or water [employer] threatened to shut off services in your [...] your living situation today? I have a [place] place to live 11/17/2023 Comments No Sex and Gender Information Value Date Recorded Sex Assigned at Female 11/17/2023 2:56 PM CDT Legal Sex Female 9:56 AM CRUISE COORDINATOR Gender Identity Female 11/17/2023 2:56 PM CDT Sexual Orientation Straight 11/17/2023 2: 56 PM CDT Last Filed Vital Signs Vital Sign Reading Time Taken Comments Blood Pressure 124/56 01/11/2024 3:18 PM CDT Pulse 54 01/11/2024 3:18 PM CDT Temperature 35.7 ??C (96.3 ??F) 01/11/2024 3:18 PM CD T Respiratory Rate 16 11/17/2023 3:03 PM CDT Oxygen Saturation 92% 08/08/2022 10:30 AM CRUISE COORDINATOR Inhaled Oxygen Concentration - - Weight 49.3 kg (108 lb 11 oz) 01/11/2024 3:18 PM CDT Height 157 cm (5' 1.81) 11/17/2023 3:03 PM CDT Body Mass Index 20 11/17/2023 3:03 PM CDT Plan of Treatment Upcoming Encounters Date Type Department Care Team (Late st Contact Info) Description 04/08/2024 2:00 PM CDT Appointment Department of Radiation Oncology in [place], [place] [address] [place] [address] Clemente Feng M.D. 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 (HCC) ARIA COURSE COMPLETE TREATMENT INFORMATION Routine 01/19/2024 3:07 PM CDT ARIA DAILY TREATMENT INFORMATION Routine 01/19/2024 3:07 PM CDT ARIA DAILY TREATMENT INFORMATION Routine 01/17/2024 3:31 PM CDT [facility] 01/15/2024 3:23 PM CDT [facility] DAILY TREATMENT INFORMATION Routine 01/11/2024 3:11 PM CDT [facility] DAILY TREATMENT INFORMATION Routine 01/09/2024 3:29 PM CDT LIPID PANEL, S Routine 11/17/2023 4:25 PM CDT Well Adult Examination Normal BI BREAST SCREENING BILATERAL WITH TOMOSYNTHESIS RAD - Routine (most inpatients and all outpatients) 11/17/2023 4:19 PM CDT Screening Mammogram Breast Cancer HPV WITH GENOTYPING, PCR, THINPREP Routine 11/17/2023 3:33 PM CDT HEMOGLOBIN A1C, B Routine 08/08/2023 11:26 AM CRUISE COORDINATOR Fatigue CT CHEST WITH IV CONTRAST RAD - Routine (most inpatients and all outpatients) 07/05/2022 8:01 AM CRUISE COORDINATOR Nodule Pulmonary from Last 3 Months or [...] fludeoxyglucose F 18 injection [facility] (FDG F-18),13.5 millicurie Procedure Note Yousif Velasco [...] fludeoxyglucose F 18 injection [facility] (FDG F-18),13.5 millicurie IMPRESSION: 1. Left lower [...] osseous metastases are not substantially changed. Lakisha Julian M.D. [facility] [place] PROCEDURES Final Resu lt * Aria Course Complete Treatment Information (01/19/2024 [...] Date cGy 3000 GAMING ARIA Plan ID [id number] R GAMING ARIA Fractions Treated to Date [...] System RADIATION ONCOLOGY ORDERA BLES Final Result AMBERLY RUFFIN na * Aria Daily Treatment Information (01/19/2024 [...] Dosage Given 600 GAMING ARIA Plan ID [id number] R GAMING ARIA Fractions Treated to Date [...] System RADIATION ONCOLOGY ORDERA BLES Final Result AMBERLY RUFFIN na * (ABNORMAL) Lipid Panel (11/17/2023 4:25 PM [...] M.D. LAB BLOOD ADD-ON Final Resul t [facility] [address] [place] [address], [facility] in [place] [address] [place] [address] * BI Breast Screening Bilateral with Tomosynthesis [...] ASSESSMENT: BI-RADS: 1: Negative. Suhail Davies M.D. [facility] Final Result * HPV with Genotyping, PCR, [...] correlated with patient's history, clinical presentation, and BUSINESS LAWYER cytology report. 11/17/2023 3:33 PM CDT 11/20/2023 7:40 AM CDT us Nelly Ch M.D. LAB MICROBIOLOGY - GENERAL O RDERABLES Final Result Performing Organization Address City/[facility]/ZIP Co de Phone Number [facility] [address] [place] [address], [facility] [address] [facility] [address] [place] [address] * Hemoglobin A1c (08/08/2023 11:26 AM CRUISE COORDINATOR) Hemoglobin A1c, B 5.6 4.2 - 5.6 % 08/08/2023 12:50 PM CRUISE COORDINATOR FRANCIS Blood (Blood, Venous) 08/08/2023 11:26 AM CRUISE COORDINATOR 08/08/2023 11:32 AM CRUISE COORDINATOR us Tomer Hinson M.D. LAB BLOOD ADD-ON Final Result Performing Organization Address City/[facility]/ZIP Co de Phone Number [facility] [place] [address] [place] [address], [facility] [facility] [place] [facility] [employer] [address] [place] [address] * CT Chest with IV Contrast (07/05/2022 8:01 AM CRUISE COORDINATOR) Anatomical Region Laterality Modality Chest, Thoracic RST LOS, Tho racic ARZ LOS, Thoracic ARZ LOS, Thoracic FLA LOS N/A Computed Tomography 07/05/2022 8:43 AM CRUISE COORDINATOR Impressions 07/05/2022 8:51 AM CRUISE COORDINATOR 1. Spiculated left lower lobe mass, highly [...] attention at follow-up. Narrative 07/05/2022 8:51 AM CRUISE COORDINATOR EXAM: CT CHEST WITH IV CONTRAST COMPARISON: [...] Most Recently Relevant to Health Maintenance Insurance [facility] [place] [address] Care Teams Sap Bi Architect Relationship Specialty Start Date End Date Suhail Burrows M.B.B.S., [place] [address] [place] [address] Samuelnidia EllsworthStinnettJOSEFA kennedy [phone] PCP - General Family Medicine 06/09/22
--- OUTSIDE RECORDS SUMMARY | 2024-04-05 08:44 | XMS_ITS | Encounter Summary ---
Author Organization [facility] Address [address] [place] [address] Care Team Providers Care Regional Clinical Research Associate Name Role Phone Suhail Burrows M.D. Primary Care P dena Encounter Details Date Type Department Care Team (Late st Contact Info) Description 01/19/2024 Documentation Department of Radiation Oncology in [place], [place] [address] [place] [phone] Clemente Feng M.D. [address] [place] [address] Social History Tobacco Use Types Packs/Day Years Used Date Smoking Tobacco: Former Cigarettes 1 30.2 1 993 - 08/10/2022 Smokeless Tobacco: Never Alcohol Use Standard Drinks/Week Comments Yes 0 (1 standard drink = 0.6 oz pur e alcohol) rare [facility] Utilities Answer Date Recorded In the past 12 months has [employer], gas, oil, or water [employer] threatened to shut off services in your [...] your living situation today? I have a [facility] place to live 11/17/2023 Comments No Sex and Gender Information Value Date Recorded Sex Assigned at Female 11/17/2023 2:56 PM CDT Legal Sex Female 9:56 AM ANTI AIR WARFARE OPERATIONS OFFICER Gender Identity Female 11/17/2023 2:56 PM CDT [...] Left (HCC) Attending Physician: Clemente Feng M.D. ([id number]) Treatment Intent: Palliative Concomitant Therapy: None Single Plan Treatment Course: 5xMultisiteSBRT Plan ID Fractions Dose / Fraction (cGy) Dose Treated (cGy) Dose Planned (cGy) First Treatment Last Treatment Elapsed Days [id number] 600 3000 3000 01/09/2024 01/19/2024 10 [id number] 600 3000 3000 01/09/2024 01/19/2024 10 Course [...] Princess Ruiz R.N., 02/14/2024 9:26 AM CDT [facility] [address] [place] [address] Cosigned by Clemente Feng M.D. at 02/15/2024 5:58 PM CDT documented in this encounter Plan of Treatment Upcoming Encounters Date Type Department Care Team (Late st Contact Info) Description 04/08/2024 2:00 PM CDT Appointment Department of Radiation Oncology in [place], [place] [address] [place] [phone] Clemente Feng M.D. [address] [place] [address] documented as of this encounter Visit Diagnoses [...] (HCC) documented in this encounter Care Teams Regional Clinical Research Associate Relationship Specialty Start Date End Date Suhail Burrows M.B.B.S., M.D. [address] [place] [phone] PCP - General Family Medicine 06/09/22 documented as of this encounter
--- OUTSIDE RECORDS SUMMARY | 2024-04-05 08:44 | XMS_ITS | Encounter Summary ---
Author Organization [facility] Address [address] [place] [address] Care Team Providers Care Sales Assistant Entertainment And Media Name Role Phone Suhail Burrows M.D. 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 [address] [place] [address] Phone: tel: fax: T Radiation Oncology at [place] [address] [place] [phone] Referral ID Status Reason Start Date Expiration Date V isits Requested Visits Authorized [id number] Authorized 01/09/2024 06/11/2024 5 5 Encounter Details Date Type Department Care Team (Latest Contact Info) Description 01/09/2024 2:53 PM CDT - 01/09/2024 11:59 PM CDT Hospital Encounter Department of Radiation Oncology in [place], [place] [address] [place] [phone] Clemente Feng M.D. [address] [place] [phone] Discharge Disposition: Home or Self Care Social History Tobacco Use Types Packs/Day Years Used Date Smoking Tobacco: Former Cigarettes 1 30.2 1 993 - 08/10/2022 Smokeless Tobacco: Never Alcohol Use Standard Drinks/Week Comments Yes 0 (1 standard drink = 0.6 oz pur e alcohol) rare [facility] Utilities Answer Date Recorded In [...] your living situation today? 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 [address] [place] [address] documented as of this encounter Visit Diagnoses Not on filedocumented in this encounter Care Teams Sales Assistant Entertainment And Media Relationship Specialty Start Date End Date Suhail Burrows M.B.B.S., M.D. [address] [place] [phone] PCP - General Family Medicine 06/09/22 documented as of this encounter
--- OUTSIDE RECORDS SUMMARY | 2024-04-05 08:44 | XMS_ITS | Encounter Summary ---
Author Organization [facility] Address [address] [place] [address] Care Team Providers Care Thermodynamicist Name Role Phone Suhail Burrows M.D. 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 [address] [place] [address] Phone: tel: fax: [facility] Region Referral ID Status Reason Start Date Expiration Date Visits Re quested Visits Authorized [id number] Closed 02/13/2024 02/12/2025 1 1 Encounter Details Date Type Department Care Team (Latest Contact Info) Description 04/02/2024 9:05 AM CDT - 04/02/2024 11:59 PM CDT Hospital Encounter Department of Radiology in [place], [place] [address] [place] [address] Lakisha Julian M.D. 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 [address] [place] [address] documented as of this encounter Procedures Procedure [...] RADIOPHARMACEUTICAL/MEDS: Route: intravenous fludeoxyglucose F 18 injection INTERMEDIATE (FDG F-18),13.5 millicurie Procedure Note Yousif Velasco [...] RADIOPHARMACEUTICAL/MEDS: Route: intravenous fludeoxyglucose F 18 injection INTERMEDIATE (FDG F-18),13.5 millicurie IMPRESSION: 1. Left lower [...] are not substantially changed. Lakisha Julian M.D. IMSiddharth NM PROCEDURES Final Resu lt documented in this [...] Dose Rate Site fludeoxyglucose F 18 injection INTERMEDIATE (FDG F-18) 13.5 millicurie, intravenous, Once, On 04/02/24 at 0945, For 1 dose, Imaging Protocol Orders Given 04/02/2024 9:20 AM CDT 13.5 millicuries Left Antecubital documented in this encounter Care Teams Thermodynamicist Relationship Specialty Start Date End Date Suhail Burrows M.B.B.S., Beronica. [address] [place] [phone] PCP - General Family Medicine 06/09/22 documented as of this encounter
--- OUTSIDE RECORDS SUMMARY | 2024-04-05 08:44 | XMS_ITS ---
Author Organization [facility] Address [address] [place] [address] Care Team Providers Care Pyrometallurgical Engineer Name Role Phone Suhail Burrows M.D. [...] Significanc e Cervix 08/29/2013 Overview (06/20/2022): 07/08/16: [place]: GROVER 1 08/03/16: LEEP: Negative, Ecto: Positive [...] 5 of 5 600 cGy 3,000 cGy [id number] 01/19/2024 10 5 of 5 600 cGy 3,000 cGy G4Dikfrko 09/26/2023 6 5 of 5 500 cGy 2,500 cGy B0BbewfW 09/26/2023 6 5 of 5 500 cGy 2,500 cGy T0VskzB 05/24/2023 6 5 of 5 400 cGy 2,000 cGy F4HtottifQ 03/08/2023 0 1 of 1 800 cGy 800 cGy Q6DyUgxkjDY 09/09/2022 11 10 of 10 300 cGy 3,000 cG y Reference Point Last Treated On Elapsed Days Session Dose Total Dose [id number]_3000x 01/19/2024 10 600 cGy 3,000 cG y dpviliacR_3000x 01/19/2024 10 600 cGy 3,000 cGy [id number]_Qzhsg 09/26/2023 6 500 cGy 2,500 cGy [id number]_Uxd 09/26/2023 6 500 cGy 2,500 cGy QSB5236r 05/24/2023 6 400 cGy 2,000 cGy [id number] 03/08/2023 0 800 cGy 800 cGy [id number] 09/09/2022 11 300 cGy 3,000 cGy Resolved Problems Problem Noted Date Diagnosed Date Resolved Date Elevated Blood Pressure Without Hypertension 2 06/20/2022 Melanoma Skin 04/01/2010 08/01/2022 Overview (06/20/2022): Right arm 2000
--- OUTSIDE RECORDS SUMMARY | 2024-04-05 08:44 | XMS_ITS | Clinical Summary ---
Author Organization [facility] Address [address] [place] [address] Care Team Providers Care Captain/Check Airman Name Role Phone Suhail Burrows M.D. Primary Care P dena Source Comments Patient records contain information from all sites at [facility]. For routine questions regarding patient records, call [phone] during business hours, M-F 8:00 AM - 5:00 PM Central Time. Record requests for emergency care only can be directed to [phone] at any time.[facility] Allergies No known active allergies Medications [...] Significanc e Cervix 08/29/2013 Overview (06/20/2022): 07/08/16: [place]: GROVER 1 08/03/16: LEEP: Negative, Ecto: Positive [...] CDT Hospital Encounter Department of Radiology in [place], [place] [address] [place] [address] Lakisha Julian M.D. 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 Discharge Disposition: Home or Self Care 01/19/2024 Documentation Department of Radiation Oncology in [address] [address] Clemente Feng M.D. 01/17/2024 2:47 PM CDT - 01/17/2024 11:59 PM CDT Hospital Encounter Department of Radiation Oncology in [address] [address] Clemente Feng M.D. Discharge Disposition: Home or Self Care 01/15/2024 2:36 PM CDT - 01/15/2024 11:59 PM CDT Hospital Encounter Department of Radiation Oncology in [address] [address] Clemente Feng M.D. Discharge Disposition: Home or Self Care 01/11/2024 2:37 PM CDT - 01/11/2024 6:54 PM CDT Hospital Encounter Department of Radiation Oncology in [address] [address] Clemente Feng M.D. 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 Discharge Disposition: Home or Self Care 01/09/2024 2:53 PM CDT - 01/09/2024 11:59 PM CDT Hospital Encounter Department of Radiation Oncology in [address] [address] Clemente Feng M.D. Discharge Disposition: Home or [...] In the past 12 months has e [employer], gas, oil, or water [employer] threatened to shut off services in your [...] your living situation today? I have a [facility] place to live 11/17/2023 Comments No Sex and Gender Information Value Date Recorded Sex Assigned at Female 11/17/2023 2:56 PM CDT Legal Sex Female 9:56 AM EDUCATION SUPERVISOR Gender Identity Female 11/17/2023 2:56 PM CDT Sexual Orientation Straight 11/17/2023 2: 56 PM CDT Last Filed Vital Signs Vital Sign Reading Time Taken Comments Blood Pressure 124/56 01/11/2024 3:18 PM CDT Pulse 54 01/11/2024 3:18 PM CDT Temperature 35.7 ??C (96.3 ??F) 01/11/2024 3:18 PM CD T Respiratory Rate 16 11/17/2023 3:03 PM CDT Oxygen Saturation 92% 08/08/2022 10:30 AM EDUCATION SUPERVISOR Inhaled Oxygen Concentration - - Weight 49.3 kg (108 lb 11 oz) 01/11/2024 3:18 PM CDT Height 157 cm (5' 1.81) 11/17/2023 3:03 PM CDT Body Mass Index 20 11/17/2023 3:03 PM CDT Plan of Treatment Upcoming Encounters Date Type Department Care Team (Late st Contact Info) Description 04/08/2024 2:00 PM CDT Appointment Department of Radiation Oncology in [place], [place] [address] [place] [address] Clemente Feng M.D. [address] [place] [address] Health Maintenance Due Date Last Done Comments CT Colonography 1961 Cologuard 1960 HIV Screening 1961 Hepatitis C Screening 1961 Zoster Vaccines (1 of 2) 1980 RSV vaccine - (32-36 weeks) or 60+ years (1 - Risk 60-74 years 1-dose series) 2021 COVID-19 Vaccine ( season) 2024 06/17/2021, 10/20/2020, 09/29/2020 Influenza Vaccine [...] TREATMENT INFORMATION Routine 01/15/2024 3:23 PM CDT [facility] 01/11/2024 3:11 PM CDT [facility] Routine 01/09/2024 3:29 PM CDT LIPID PANEL, S Routine 11/17/2023 4:25 PM CDT Well Adult Examination Normal BI BREAST SCREENING BILATERAL WITH TOMOSYNTHESIS RAD - Routine (most inpatients and all outpatients) 11/17/2023 4:19 PM CDT Screening Mammogram Breast Cancer HPV WITH GENOTYPING, PCR, THINPREP Routine 11/17/2023 3:33 PM CDT HEMOGLOBIN A1C, B Routine 08/08/2023 11:26 AM EDUCATION SUPERVISOR Fatigue CT CHEST WITH IV CONTRAST RAD - Routine (most inpatients and all outpatients) 07/05/2022 8:01 AM EDUCATION SUPERVISOR Nodule Pulmonary from Last 3 Months or Most Recently Relevant to Health Maintenance Results * PET CT Skull to Thigh FDG (04/02/2024 10:43 AM CDT) Anatomical Region Laterality Modality Body, Nuclear Medicine PET R ST LOS, PET ARZ LOS, Nuclear Medicine PET FLA [place] [facility], Nuclear Medicine N/A Positron Emission Tomography (PET) [...] intravenous fludeoxyglucose F 18 injection SNF (FDG F-18),13.5 millicurie Procedure Note Yousif Velasco [...] intravenous fludeoxyglucose F 18 injection SNF (FDG F-18),13.5 millicurie IMPRESSION: 1. Left lower [...] are not substantially changed. Lakisha Julian M.D. IMG NM PROCEDURES Final Resu lt * Aria [...] Date cGy 3000 GAMING ARIA Plan ID [id number] R GAMING ARIA Fractions Treated to Date [...] Dosage Given 600 GAMING ARIA Plan ID [id number] R GAMING ARIA Fractions Treated to Date [...] M.D. LAB BLOOD ADD-ON Final Resul t [facility] [address] [place] [address], [facility] OWAT [facility] in [place] [address] [place] [address] * BI Breast Screening Bilateral with Tomosynthesis [...] ASSESSMENT: BI-RADS: 1: Negative. Suhail Davies M.D. [facility] Final Result * HPV with Genotyping, PCR, [...] correlated with patient's history, clinical presentation, and REGULATORY ASSOCIATE cytology report. 11/17/2023 3:33 PM CDT 11/20/2023 7:40 AM CDT Nelly Ch M.D. LAB MICROBIOLOGY - GENERAL O RDERABLES Final Result [facility] [address] [place] [address], [facility]TO [address] [facility] [address] [place] [address] * Hemoglobin A1c (08/08/2023 11:26 AM EDUCATION SUPERVISOR) Hemoglobin A1c, B 5.6 4.2 - 5.6 % 08/08/2023 12:50 PM EDUCATION SUPERVISOR FRANCIS Blood (Blood, Venous) 08/08/2023 11:26 AM EDUCATION SUPERVISOR 08/08/2023 11:32 AM EDUCATION SUPERVISOR us Tomer Hinson M.D. LAB BLOOD ADD-ON Final Result Performing Organization Address City/[facility] [[email or web address]] Co de Phone Number [facility] [place] [address] [place] [address], [facility] FRANCIS [place] [facility]- [facility] [place] & José Antonio [address] [place] [address] * CT Chest with IV Contrast (07/05/2022 8:01 AM EDUCATION SUPERVISOR) Anatomical Region Laterality Modality Chest, Thoracic RST LOS, Tho racic ARZ LOS, Thoracic ARZ LOS, Thoracic FLA LOS N/A Computed Tomography 07/05/2022 8:43 AM EDUCATION SUPERVISOR Impressions 07/05/2022 8:51 AM EDUCATION SUPERVISOR 1. Spiculated left lower lobe mass, highly [...] attention at follow-up. Narrative 07/05/2022 8:51 AM EDUCATION SUPERVISOR EXAM: CT CHEST WITH IV CONTRAST COMPARISON: [...] nodules, attention at follow-up. Suhail Davies M.D. [facility] [place] [place] CT PROCEDUR ES Final Result from Last 3 Months or Most Recently Relevant to Health Maintenance Insurance [facility] Care Teams Captain/Check Airman Relationship Specialty Start Date End Date Suhail Burrows M.B.BHectorSHector, M.Annette. [address] [place] [address] JOSEFA Alvarez [phone] PCP - General Family Medicine 06/09/22
--- OUTSIDE RECORDS SUMMARY | 2024-04-05 08:44 | XMS_ITS | Encounter Summary ---
Author Organization [facility] Address [address] [place] [address] Care Team Providers Care School Photographer Name Role Phone Suhail Burrows M.D. Primary Care dena Reason for Referral * Outpatient (Routine) - Closed Specialty Diagnoses / Procedures Referred By Yelena griffin Referred To Contact Radiation Oncology Clemente Feng M.D. [address] [place] [address] Phone: tel: fax: [facility] Region Referral ID Status Reason Start Date Expiration Date Visits Re quested Visits Authorized [id number] Closed 01/01/2024 07/02/2025 1 1 Scheduling Instructions Prior to sim Reason for Visit * Outpatient (Routine) - Closed Specialty Diagnoses / Procedures Referred By Yelena griffin Referred To Contact Radiation Oncology Clemente Feng M.D. [address] [place] [address] Phone: tel: fax: [facility] Region Referral ID Status Reason Start Date Expiration Date Visits Re quested Visits Authorized [id number] Closed 01/01/2024 07/02/2025 1 1 Encounter Details Date Type Department Care Team (Latest Contact Info) Description 01/02/2024 1:25 PM CDT - 01/02/2024 2:47 PM CDT Hospital Encounter Department of Radiation Oncology in [place], [place] [address] [place] [address] Clemente Feng M.D. 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 - 01/02/2024 1:45 PM CDT SUBJECTIVE REQUESTING PROVIDER Clemente Feng M.D. REASON FOR CONSULT 1. Secondary Malignant Neoplasm Intrapelvic Lymph Node (HCC) 2. 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 ([id number]) HISTORY OF PRESENT ILLNESS Miss Sandrine Deleon [...] APRN, Dean.N.PHector, D.N.P. 01/02/2024 2:15 PM CDT [facility] Radiation Therapy Center [address] [place] [address] Cosigned by Clemente Feng M.D. at 01/02/2024 [...] complete listing of these, please see Ms. Lvoe's note. After this discussion, we provided her [...] 10 minutes caring for this patient including tdln-bh-dcxf and lpj-lqan-ya-face time. Signed by: Clemente Feng M.D. 01/02/24 3:50 PM CDT [facility] Radiation Therapy [facility] documented in this encounter Miscellaneous Notes * Addendum Note - Jennifer Day, C.N.A. - 01/02/2024 1:45 PM CDTEncounter addended by: Jennifer Day C.N.A. on: 01/03/2024 7:11 AM Actions taken: Letter saved documented in this encounter Plan of Treatment Upcoming Encounters Date Type Department Care Team (Late st Contact Info) Description 04/08/2024 2:00 PM CDT Appointment Department of Radiation Oncology in [place], [place] [address] [place] [address] Clemente Feng M.D. [address] [place] [address] Scheduled Referrals Name Type Priority Associated Diagnoses [...] (HCC) documented in this encounter Care Teams School Photographer Relationship Specialty Start Date End Date Suhail Burrows M.B.B.S., M.D. [address] [place] [phone] PCP - General Family Medicine 06/09/22 documented as of this encounter
--- OUTSIDE RECORDS SUMMARY | 2024-04-05 08:45 | XMS_ITS | Encounter Summary ---
Author Organization [facility] Address [address] [place] [address] Care Team Providers Care Ventilating Equipment Installer Name Role Phone Suhail Burrows M.D. 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 [address] [place] [address] Phone: tel: fax: [facility] Region Referral ID Status Reason Start Date Expiration Date Visits Re quested Visits Authorized [id number] Closed 12/29/2023 12/28/2024 1 1 Encounter Details Date Type Department Care Team (Latest Contact Info) Description 01/02/2024 2:59 PM CDT - 01/02/2024 3:57 PM CDT Hospital Encounter Department of Radiation Oncology in [place], [place] [address] [place] [address] Clemente Feng M.D. [address] [place] [address] Secondary Malignant Neoplasm Bone (HCC); Secondary Malignant Neoplasm Intrapelvic Lymph Node (HCC) Social History Tobacco Use Types Packs/Day Years Used Date Smoking Tobacco: Former Cigarettes 1 30.2 1 993 - 08/10/2022 Smokeless Tobacco: Never Alcohol Use Standard Drinks/Week Comments Yes 0 (1 standard drink = 0.6 oz pur e alcohol) rare [facility] Utilities Answer Date Recorded In the past 12 months has e [employer], gas, oil, or water [employer] threatened to shut off services in your [...] your living situation today? I have a [facility] place to live 11/17/2023 Comments No Sex and Gender Information Value Date Recorded Sex Assigned at Female 11/17/2023 2:56 PM CDT Legal Sex Female 9:56 AM TARE MAN Gender Identity Female 11/17/2023 2:56 PM CDT [...] imaging was appropriate and completed without incident. Registered Appraiser use:No Cosigned by Clemente Feng M.D. at 01/02/2024 3:57 PM CDT Associated attestation - Clemente Feng M.D. - 01/02/2024 3:57 PM CDT I was available for the entirety of the procedure but only present for image review. Signed by: Clemente Feng M.D. 01/02/24 3:57 PM CDT [facility] Radiation Therapy [facility] documented in this encounter Miscellaneous Notes * Addendum Note - Clemente Feng M.D. - 01/02/2024 3:30 PM CDTEncounter addended by: Clemente Feng M.D. on: 01/02/2024 3:57 PM Actions taken: Level of Service modified documented in this encounter Plan of Treatment Upcoming Encounters Date Type Department Care Team (Late st Contact Info) Description 04/08/2024 2:00 PM CDT Appointment Department of Radiation Oncology in [place], [place] [address] [place] [address] Clemente Feng M.D. [address] [place] [address] documented as of this encounter Procedures Procedure [...] M.D. Authorized by: Clemente Feng M.D. ?? us Clemente Feng M.D. RADIATION ONCOLOGY ORDERAB LES [...] (HCC) documented in this encounter Care Teams Ventilating Equipment Installer Relationship Specialty Start Date End Date Suhail Burrows M.B.B.S., Beronica. [address] [place] [phone] PCP - General Family Medicine 06/09/22 documented as of this encounter
--- OUTSIDE RECORDS SUMMARY | 2024-04-05 08:45 | XMS_ITS | Encounter Summary ---
Author Organization [facility] Address [address] [place] [address] Care Team Providers Care Surgical Instrument Mechanic Name Role Phone Suhail Burrows M.D. Primary Care dena Reason for Referral * Outpatient (Routine) - Closed Specialty Diagnoses / Procedures Referred By Yelena t Referred To Contact Radiation Oncology Clemente Feng M.D. [address] [place] [address] Phone: tel: fax: [facility] Region Referral ID Status Reason Start Date Expiration Date Visits Re quested Visits Authorized [id number] Closed 01/01/2024 07/02/2025 1 1 Scheduling Instructions Prior to sim * Outpatient (Routine) - Closed Specialty Diagnoses / Procedures Referred By Contac t Referred To Contact Radiation Oncology Clemente Feng M.D. [address] [place] [address] Phone: tel: fax: Clemente Feng M.D. [address] [place] [address] Phone: tel: fax: Referral ID Status Reason Start Date Expiration Date Visits Re quested Visits Authorized [id number] Closed 10/03/2023 04/03/2025 1 1 Scheduling Instructions Brain MRI at [facility] and body imaging (as ordered by Dr. Julian) prior to visit. Please get images and reports as well as Dr. Julian's recent notes. Reason for Visit * Outpatient (Routine) - Closed Specialty Diagnoses / Procedures Referred By Contac t Referred To Contact Radiation Oncology Clemente Feng M.D. [address] [place] [phone] Phone: tel: fax: Clemente Feng M.D. [address] [place] [address] Phone: tel: fax: Referral ID Status Reason Start Date Expiration Date Visits Re quested Visits Authorized [id number] Closed 10/03/2023 04/03/2025 1 1 Encounter Details Date Type Department Care Team (Latest Contact Info) Description 01/01/2024 1:43 PM CDT - 01/01/2024 2:18 PM CDT Hospital Encounter Department of Radiation Oncology in [place], [place] [address] [place] [address] Clemente Feng M.D. 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 We will see her tomorrow around this time. She will have an IV start and will drink oral contrast 1 hour prior to her CT simulation at 3:00 p.m.the patient verbalized satisfaction with this plan and was appreciative of the call. Signed by: Clemente Feng M.D. 01/01/24 2:18 PM CDT [facility] [place] documented in this encounter Miscellaneous Notes * Addendum Note - Clemente Feng M.D. - 01/01/2024 2:00 PM CDTEncounter addended by: Clemente Feng M.D. on: 01/01/2024 2:50 PM Actions taken: Order list changed documented in this encounter Plan of Treatment Upcoming Encounters Date Type Department Care Team (Late st Contact Info) Description 04/08/2024 2:00 PM CDT Appointment Department of Radiation Oncology in [place], [place] [address] [place] [address] Clemente Feng M.D. [address] [place] [address] Scheduled Referrals Name Type Priority Associated Diagnoses [...] (HCC) documented in this encounter Care Teams Surgical Instrument Mechanic Relationship Specialty Start Date End Date Suhail Burrows M.B.B.SBeronica Young. [address] [place] [phone] PCP - General Family Medicine 06/09/22 documented as of this encounter
--- OUTSIDE RECORDS SUMMARY | 2024-04-05 08:45 | XMS_ITS | Encounter Summary ---
Author Organization [facility] Address [address] [place] [address] Care Team Providers Care Supervisor Sound Technician Name Role Phone Suhail Burrows M.D. 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 [address] [place] [address] Phone: tel: fax: [facility] [place] [address] [place] [address] Referral ID Status Reason Start Date Expiration Date V isits Requested Visits Authorized [id number] Authorized 01/09/2024 06/11/2024 5 5 Encounter Details Date Type Department Care Team (Late st Contact Info) Description 12/29/2023 Orders Only Department of Radiation Oncology in [place], [place] [address] [place] [phone] Yusra Love APRN, C.N.P., D.N.P. 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 01/02/2024 ??3:54 PM Initial Rad Onc Treatment Planning CT Simulation Performed by: Clemente Feng M.D. Authorized by: Clemente Feng M.D. ?? us Clemente Feng M.D. RADIATION ONCOLOGY ORDERAB LES Final Result Performing Organization Address City/State/[facility] Co de Phone Number AMBERLY deleon documented in this encounter Visit [...] (HCC) documented in this encounter Care Teams Supervisor Sound Technician Relationship Specialty Start Date End Date Suhail Burrows M.B.B.S., M.D. [address] [place] [phone] PCP - General Family Medicine 06/09/22 documented as of this encounter
--- OUTSIDE RECORDS SUMMARY | 2024-04-05 08:45 | XMS_ITS | Encounter Summary ---
Author Organization [facility] Address [address] [place] [address] Care Team Providers Care Bell Neck Hammerer Name Role Phone Suhail Burrows M.D. 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 [address] [place] [address] Phone: tel: fax: [facility] Region Referral ID Status Reason Start Date Expiration Date Visits Re quested Visits Authorized [id number] Closed 10/11/2023 10/10/2024 1 1 Encounter Details Date Type Department Care Team (Latest Contact Info) Description 12/26/2023 8:37 AM CDT - 12/26/2023 11:59 PM CDT Hospital Encounter Department of Radiology in [place], [place] [address] [place] [address] Lakisha Julian M.D. 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 I have a [facility] place to live 11/17/2023 Comments No Sex and Gender Information Value Date Recorded Sex Assigned at Female 11/17/2023 2:56 PM CDT Legal Sex Female 9:56 AM BRAND AMBASSADOR Gender Identity Female 11/17/2023 2:56 PM CDT [...] CDT Appointment Department of Radiation Oncology in [place], [place] [address] [place] [address] Clemente Feng M.D. [address] [place] [address] documented as of this encounter Procedures Procedure [...] RADIOPHARMACEUTICAL/MEDS: Route: intravenous fludeoxyglucose F 18 injection ALF (FDG F-18),13 millicurie Procedure Note Yousif Velasco [...] RADIOPHARMACEUTICAL/MEDS: Route: intravenous fludeoxyglucose F 18 injection ALF (FDG F-18),13 millicurie IMPRESSION: 1. Mixed disease response with progressed bilateral external iliaclymphadenopathy. Remaining sites of metastatic disease are stable todecreased as detailed above. 2. Stable dilation of the ascending thoracic aorta. Lakisha HANDY NM PROCEDURES Final Resu lt documented in [...] Dose Rate Site fludeoxyglucose F 18 injection ALF (FDG F-18) 13 millicurie, intravenous, Once, On 12/26/23 at 0915, For 1 dose, Imaging Protocol Orders Given 12/26/2023 8:50 AM CDT 13 millicuries Left Antecubital documented in this encounter Care Teams Bell Neck Hammerer Relationship Specialty Start Date End Date Suhail Burrows M.B.B.SBeronica Young. [address] [place] [phone] PCP - General Family Medicine 06/09/22 documented as of this encounter
--- OUTSIDE RECORDS SUMMARY | 2024-04-05 08:45 | XMS_ITS | Clinical Summary ---
Author Organization [facility] Address [place], [place] [address] Care Team Providers Care Fleet Assistant Name Role Phone Suhail Burrows Primary Care [...] high risk HPV cervical Overview (01/02/2018): 07/08/16: [place]: GROVER 1 08/03/16: LEEP: Negative, Ecto: Positive [...] Comments Blood Pressure 209/91 06/09/2022 1:58 PM CAR TRIMMER Pulse 77 06/09/2022 1:58 PM CAR TRIMMER Temperature 36.9 ??C (98.4 ??F) 06/09/2022 12:[address] Respiratory Rate 16 06/09/2022 12:12 PM CAR TRIMMER Oxygen Saturation 95% 06/09/2022 1:58 PM CAR TRIMMER Inhaled Oxygen Concentration - - Weight 56.7 kg (125 lb) 06/09/2022 12:12 PM CAR TRIMMER Height 157.5 cm (5' 2) 06/09/2022 12:12 PM CAR TRIMMER Body Mass Index 22.86 06/09/2022 12:12 PM CAR TRIMMER Plan of Treatment Health Maintenance Due Date [...] Procedure Name Priority Date/Time Associated Diagnosis Comments LEASING MACHINE TENDER THIN PREP PAP SCREEN IMAGED Routine 12/21/2017 9:46 AM CDT Cervical cancer screening XR MAMMO BILAT SCREENING Routine 12/21/2017 8:29 AM CDT Visit for screening mammogram COLONOSCOPY 05/20/2016 10:00 AM CAR TRIMMER LIPID PANEL W REFLEX MEASURED LDL Routine 02/24/2015 11:27 AM CDT Screening, lipid from Last 3 Months or Most Recently Relevant to Health Maintenance Results * (ABNORMAL) LEASING MACHINE TENDER THIN PREP PAP SCREEN IMAGED (12/21/2017 9:46 AM CDT) Case Report Gynecologic Cytology Report ? Case: [id number] ? Authorizing Provider: ??Tavia Flores, ??Collected: ? 12/21/2017 0946 ? MD ? Ordering Location: ? [facility] ?? Received: ?12/21/2017 0948 ? Clinic ? First Screen: ?Yue Pop ? Pathologist: ? Catalina Medina ? MD Jelly ? Specimen: ?LEASING MACHINE TENDER ThinPrep Vial Screening, Cervical ? 12/29/2017 4:20 PM CDT [facility] [place] [facility] ENTRAL LABORATORY INTERPRETATION/ RESULT LOW GRADE SQUAMOUS INTRAEPITHELIAL LESION (LSIL)(A) (none) 12/29/2017 4:20 PM CDT [facility] [place] [facility] [place] [facility]- ENTRAL LABORATORY IMEN ADEQUACY Satisfactory for evaluation Endocervical component present 12/29/2017 4:20 PM CDT [facility] EN[facility]AL LAB[facility] HPV REQUEST HPV and PAP 12/29/2017 4:20 PM CDT [facility] EN[facility] Date of LMP menospausal 12/29/2017 4:20 PM CDT [facility] Last Pap Date 04/12/16 12/29/2017 4:20 PM CDT [facility] Last Pap Result ASCUS 8 4:20 PM CDT [facility] Abnormal Pap or [place] Bx in last 5 years Yes 12/29/2017 4:20 PM CDT [facility] Menstrual Status Postmenopausal 12/29/2017 4:20 PM CDT [facility] [place] Bx Done Today No 12/29/2017 4:20 PM CDT [facility] Additional Information None given 12/29/2017 4:20 PM CDT [facility] Automated Review Successful 12/29/2017 4:20 PM CDT [facility] Comment:Specimen processed s uccessfully by automated road commissioner device, ThinPrep Imaging System, [employer] ANCILLARY TESTING LEASING MACHINE TENDER HPV Ordered, Please see separate report 12/29/2017 4:20 PM CDT [facility] Note The pap test is [...] lesions. Cytology is screened and interpreted at [facility] - [address], [place] [address] and [facility] - [address]; [place] [address] and [facility] - [address]; [place] [address] and [facility] [address]; [place] [address] 12/29/2017 4:20 PM CDT [facility] Other (Cervical) Non-Blood / Unknown 12/21/2017 9:46 AM CDT 12/21/2017 9:48 AM CDT Taiva Flores MD PATHOLOG[facility] [address] [place] [address], [place] * XR MAMMO BILAT SCREENING (12/21/2017 8:29 AM CDT) Anatomical Region Laterality Modality BREASTS, Breast Left, Breast Right Bilateral Mammography Impressions 12/21/2017 12:23 PM CDT ??There is no radiographic evidence for malignancy. ??Recommend annual mammograms. A lay language report of this examination will be provided to the patient. MAMMOGRAM ASSESSMENT: ??ACR 2 Benign Narrative 12/21/2017 12:23 PM CDT XR MAMMO BILAT SCREENING [[id number]] CLINICAL HISTORY: ??This is an asymptomatic 57 y.o. patient. INDICATION FOR EXAM: Mammogram Screening. TECHNIQUE: CC & MLO views were obtained. ??This digital study was evaluated with the assistance of Computer-Aided Detection. COMPARISON FILMS: Yes 04/18/16 [facility] 02/24/15 [facility] FINDINGS: ??Mammographically, the breast tissue is heterogeneously dense. ?? No suspicious masses or microcalcifications. ??Benign appearing calcifications within both breasts. Tavia Flores MD MAMMO * COLONOSCOPY (05/20/2016 10:00 AM CAR TRIMMER) 05/20/2016 10:0 0 AM CAR TRIMMER Narrative Transcriptions Keenan Rivera MD - 05/20/2016 [...] adequate candidate for conscious sedation. The [id number] was passed through the anus and advanced [...] 10:00 AM Procedure Code(s): --- Professional --- 77718, Colonoscopy, flexible; with removalof tumor(s), polyp(s), or other lesion(s) bysnare technique 06878, 59, Colonoscopy, flexible; withbiopsy, single or multiple Diagnosis Code(s): --- Professional --- Z80.0, Family history of malignant neoplasmof digestive organs D12.2, Benign neoplasm of ascending colon K62.1, Rectal polyp K64.8, Other hemorrhoids CPT copyright 2015 [employer]. All rights reserved. The codes documented in this report are preliminary and upon chronometer adjuster reviewmay be revised to meet current compliance requirements. Scope In: 10:10:21 AM Scope Withdrawal Time 0 hours 17 minutes 34 seconds Scope Out: 10:34:16 AM Keenan Rivera MD PROCEDURE ORD * (ABNORMAL) LIPID PANEL W REFLEX MEASURED LDL (02/24/2015 11:27 AM CDT) CHOLESTEROL,TOTAL 243(H) 100 - 199 mg/dL 02/24/2015 11:58 AM CDT [facility] TRIGLYCERIDES 68 <150 mg/dL 02/24/2015 11:58 AM CDT [facility] HDL CHOLESTEROL 59 >40 mg/dL 02/24/2015 11:58 AM CDT [facility] NON-HDL CHOLESTEROL 184(H) <145 mg/dl 02/24/2015 11:58 AM CDT [facility] CHOL/HDL RATIO 4.12 <4.50 02/24/2015 11:58 AM CDT [facility] LDL CHOLESTEROL 170(H) <=130 mg/dL 02/24/2015 11:58 AM CDT [facility] PATIENT STATUS FASTING 02/24/2015 11:58 AM CDT [facility] Blood specimen (specimen) BLOOD SPECIMEN / Unknown Venipuncture / Unknown 02/24/2015 11:27 AM CDT 02/24/2015 11:27 AM CDT Tavia Flores MD CHEMISTRY [facility] [address] [place] [address], [place] [phone] from Last 3 Months or Most Recently Relevant to Health Maintenance Care Teams Fleet Assistant Relationship Specialty Start Date End Date Suhail Burrows MBBS [address] [facility] [place] [address] PCP - General Family Practice 07/01/22
--- NOTE | 2024-04-05 09:00 | CRLHL7_ITS ---
For Patients: As a result of the 21st Century Cures Act, medical imaging exams and procedure reports are released immediately into your electronic medical record. You may view this report before your referring provider. If you have questions, please contact your health care provider. Indication: EVALUATE FOR C7 PATH FRACTURE, NODULE FOUND IN NECK, HAS NON SMALL CELL LUNG CANCER Technique: Multiaxial CT of the cervical spine with coronal and sagittal reformats are provided before and after administration of 63 cc Isovue 370 IV contrast. Comparison: PET-CT 04/02/2024 Findings: Normal cervical lordotic curvature. Slight retrolisthesis at C4-5 and C5-6 and grade 1 anterolisthesis at T1-2. The craniocervical junction is unremarkable. There are multiple sclerotic lesions in the vertebral bodies, particularly in the C6, C7, T1 and T2 vertebral bodies and spinous processes. Chronic appearing mild superior endplate compression fracture at C7 with Schmorl`s node. Minimal retropulsion of the posterior cortex without spinal canal stenosis. Mild polypoid mucosal thickening in the maxillary sinuses. Emphysematous changes at the lung apices. Ankylosis of the T2-3 posterior elements. C1-2: No significant spinal canal stenosis C2-3: No significant spinal canal stenosis or neural foraminal narrowing. C3-4: No significant spinal canal stenosis or neural foramen narrowing. C4-5: Moderate interspace narrowing, slight retrolisthesis. Uncovertebral joint hypertrophy and facet arthrosis. Mild neural foramen narrowing bilaterally. C5-6: No significant spinal canal stenosis or neural foramen narrowing. Moderate left facet arthrosis. C6-7: Uncovertebral joint hypertrophy. Mild right neural foraminal narrowing. No left neural foramen narrowing. C7-T1: No significant spinal canal stenosis or neural foraminal narrowing. T1-T2: Moderate right facet arthrosis. Grade 1 anterolisthesis. Impression : 1. Multiple sclerotic lesions throughout the cervical and partially visualized upper thoracic spine compatible with osseous metastases. 2. Chronic appearing mild superior endplate compression fracture at C7 with Schmorl`s node. Minimal retropulsion of the posterior cortex without spinal canal stenosis. 3. No significant spinal canal stenosis or neural foramen narrowing. Please note that all CT scans at this facility use dose modulation, iterative reconstruction, and/or weight-based dosing when appropriate to reduce radiation dose to as low as reasonably achievable. Dictated by Vahid Valentine MD @ 04/08/2024 9:14:02 AM (Electronically Signed)
== END 2024-04-05 08:41 | disposition home or self-care (01) ==
PROVIDERS: PCP Family Medicine; Visit Provider Internal Medicine Hematology & Oncology
DX: C34.92 Malignant neoplasm of unspecified part of left bronchus or lung (principal); C79.51 Secondary malignant neoplasm of bone; E04.1 Nontoxic single thyroid nodule; M48.52XS Collapsed vertebra, not elsewhere classified, cervical region, sequela of fracture
CPT/HCPCS: 72127; Q9967

== ENCOUNTER 2024-07-11 14:02 | Outpatient (CLI) | payer BC, SELFPAY | END 2024-07-11 14:03 | disposition home or self-care (01) | LOC: RAD 14:03 | PROVIDERS: PCP Family Medicine; Visit Provider Physician Assistant | DX: C34.32 Malignant neoplasm of lower lobe, left bronchus or lung (principal); C79.51 Secondary malignant neoplasm of bone; R59.0 Localized enlarged lymph nodes; E27.9 Disorder of adrenal gland, unspecified | CPT/HCPCS: 78815; A9552 ==

== ENCOUNTER 2024-07-12 12:33 | Outpatient (CLI) | payer BC, SELFPAY ==
--- NOTE | 2024-07-12 13:00 | CRLHL7_ITS ---
For Patients: As a result of the Century Cures Act, medical imaging exams and procedure reports are released immediately into your electronic medical record. You may view this report before your referring provider. If you have questions, please contact your health care provider. INDICATION: Left breast cancer. COMPARISON: 07/11/2024 and 03/25/2024. Technique Multiplanar T1, T2, FLAIR and diffusion-weighted imaging. FINDINGS: Moderate generalized volume loss. Patchy and confluent T2/FLAIR signal hyperintense within the white matter of both cerebral hemispheres are nonspecific and may represent chronic deep white matter small vessel ischemic changes. No intracranial hemorrhage. No abnormal ventricular dilatation. Intracranial vascular flow voids are preserved. No mass effect. No midline shift. No restricted diffusion to suggest acute ischemia. No susceptibility artifact of remote hemorrhage. No abnormal enhancement or enhancing lesions within the brain parenchyma. Bilateral orbits are unremarkable. Normal appearing sella. Visualized paranasal sinuses and mastoid air cells are unremarkable. IMPRESSION: 1. No acute intracranial abnormality 2. Moderate generalized cerebral volume loss. Chronic deep white matter small vessel ischemic changes 3. No acute or chronic intracranial hemorrhage. 4. No abnormal enhancement or enhancing lesions. No intracranial metastases. Dictated by Domingo Vargas MD @ 07/12/2024 3:05:12 PM (Electronically Signed)
== END 2024-07-12 12:34 | disposition home or self-care (01) ==
LOC: MRI 12:33
PROVIDERS: PCP Family Medicine; Visit Provider Physician Assistant
DX: C50.912 Malignant neoplasm of unspecified site of left female breast (principal); I67.82 Cerebral ischemia; C34.92 Malignant neoplasm of unspecified part of left bronchus or lung; C79.51 Secondary malignant neoplasm of bone
CPT/HCPCS: 70553; A9575

== ENCOUNTER 2024-07-22 07:38 | Day surgery (SDC) | payer BC, SELFPAY ==
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
[2024-07-22 08:02] VITALS: BMI 20.7
[2024-07-22] MEDS: SODIUM CHLORIDE 0.9 % (FLUSH) 10 ML SYRINGE IVF (08:26)
[2024-07-22 08:27] VITALS: BP 138/74; PULSE 67; RESP 16; TEMP 36.7; O2SAT 99
[2024-07-22] MEDS: LACTATED RINGERS 500 ML 500 ML 100 ML IV (08:36)
--- NOTE | 2024-07-22 08:52 | P.GSCN_ITS ---
History of Present Illness Consult details Date Seen: 07/22/24 Consult date: 07/22/24 Narrative: The patient is a 64-year-old female with stage IV B non-small cell lung cancer who is here today for port placement. She had previously been treated with radiation and immunotherapy with Keytruda, however has had progression of disease and additional chemotherapy is recommended. She has never had a port before. She denies any recent upper respiratory symptoms, chest pain or shortness of breath. 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 Smoking Status: Former smoker How often do you have a drink containing alcohol: 2-3 times a week Alcohol type: wine How many standard drinks containing alcohol do you have on a typical day: 1 or 2 How often do you have six or more drinks on one occasion: Never AUDIT-C Alcohol total score: 3 Non-prescribed substance use: marijuana (any form) Non-prescribed substance use details: 1/wk Caffeine: Yes (1 pot/day) Are you using contraception or practicing any form of control: No Meds Home Medications and Allergies Home Medications ?Medication ?Instructions ?Recorded ?Confirmed ?Type acetaminophen 325 mg capsule 325 mg PO ONCE PRN 02/21/23 07/22/24 History (Tylenol) cyclobenzaprine 5 mg tablet 5 mg PO QHS PRN 11/22/23 07/22/24 History paxrsatyroqv-mmulhnyv-qbqc 1 tab PO DAILY 06/17/24 07/22/24 History fumarate 18 mg-folic acid 400 mcg tablet (One-A-Day Women's Complete) ibuprofen 200 mg tablet (Advil) 200 mg PO Q6H 07/22/24 07/22/24 History Allergies Allergy/AdvReac Type Severity Reaction Status Date / Time No Known Drug Allergies Allergy Verified 07/22/24 07:51 Exam Narrative: Exam Narrative: General appearance: Alert, cooperative, and in no distress HENT Head: Normocephalic Mouth: Edentulous Pulmonary: Breathing nonlabored on room air chest: No scars. Cardiovascular Heart: Regular rate Extremities: warm and well perfused Skin: Normal skin color, texture, and turgor. Neurologic: No focal deficits Psychiatric: Alert, oriented, cooperative, normal affect. Const: Vital Signs, click to edit/add: Vital Signs - 24 hr 07/22/24 08:27 Temperature 98.1 F Pulse Rate 67 Respiratory Rate 16 Blood Pressure 138/74 Pulse Oximetry 99 Results Labs Labs: Platelets within normal limits Imaging Additional studies: CT PET 07/11/24: IMPRESSION: 1. Similar distribution of widespread sclerotic skeletal metastases with multiple sites of increased uptake as detailed in the findings. 2. Increased size and uptake of bilateral lung nodules compared to the most recent available PET-CT. 3. Increased uptake within multi station mediastinal lymph nodes, adjacent right axillary lymph nodes, upper abdominal, midline pelvic and left inguinal lymph nodes suspicious for progression of metastatic lymphadenopathy. 4. Increased bilateral adrenal uptake more prominent on the left. Indeterminate though suspicious. Consider updated cross-sectional imaging of the abdomen/pelvis. Attention on follow-up. 5. No abnormal uptake in the visualized brain. Compared to most recent/updated brain MRI for additional characterization of known enhancing intracranial lesions. 6. Other nonacute findings as detailed in the body of the report. Dictated by Gilbert Mcbride MD @ 07/12/2024 12:35:05 AM Progress Note:A&P Assessment and plan (1) Non-small cell lung cancer: Status: Acute Plan The patient is a 64-year-old female with stage IV lung cancer, here today for port placement. Risks and benefits the procedure were discussed with the patient. There are no contraindications to surgery. She agreed to proceed.
--- NOTE | 2024-07-22 09:00 | CRLHL7_ITS ---
For Patients: As a result of the Century Cures Act, medical imaging exams and procedure reports are released immediately into your electronic medical record. You may view this report before your referring provider. If you have questions, please contact your health care provider. Indication: JOHANN CATH PLACEMENT Technique: One fluoroscopic image of the chest. Fluoroscopic time 28.3 seconds. IMPRESSION: Fluoroscopic guidance for Port-A-Cath placement. Dictated by Vahid Reece MD @ 07/22/2024 11:44:16 AM (Electronically Signed)
--- NOTE | 2024-07-22 09:20 | CRLHL7_ITS ---
For Patients: As a result of the Century Cures Act, medical imaging exams and procedure reports are released immediately into your electronic medical record. You may view this report before your referring provider. If you have questions, please contact your health care provider. INDICATION: Status post port placement TECHNIQUE: 1 view chest radiograph COMPARISON: Same-day intraprocedural fluoroscopy FINDINGS: Devices: Right IJ chest port distal tip is at the superior cavoatrial junction. Lung volumes are good. No focal or diffuse opacities. The patient has known lung lesions are not clearly visible radiographically. No pleural effusion. No pneumothorax. Heart size is normal. Atherosclerotic vascular calcifications. Small area of sclerosis along the left posterior 7th rib. IMPRESSION: 1. The right IJ chest port is in radiographically good position. 2. Sclerotic bone lesion in the left 7th rib is similar to the prior PET-CT. Dictated by Rupa Webb MD @ 07/22/2024 10:48:11 AM (Electronically Signed)
--- NOTE | 2024-07-22 09:20 | PM.GSPRC ---
Operative Note Date of procedure: 07/22/24 Pre-op diagnosis: Stage IVB non-small cell lung cancer Post-op diagnosis: Stage IVB non-small cell lung cancer Type of Procedure: Right internal jugular Port-A-Cath placement with ultrasound and fluoroscopic guidance. Indications: The patient is a 64-year-old female with stage IV B qbj-bcydp-duum lung cancer. She has been previously treated with radiation therapy and immunotherapy. She has had progression of disease and port placement was requested for additional chemotherapy. Procedure Description: After discussing the risks and benefits of the procedure, the patient signed informed consent.? The operative site was marked and the patient was brought to the operating room and placed on the operating table in supine position.? Care was taken to pad the patient's pressure points.?? The patient was then given sedation by anesthesia.?? The operative site was then prepped and draped in the usual sterile fashion.? A time-out was then performed. The patient's right internal jugular vein was visualized using ultrasound. It was overlying the right carotid. The patient was placed in reverse trendelenberg and the neck repositioned to better visualize the vein. Local anesthetic was injected into the skin overlying the vein. This was accessed percutaneously using ultrasound guidance. Using Seldinger technique, a guidewire was threaded through the needle. A skin jane was made around the wire. Next, local anesthetic was injected into the skin below the clavicle and along the proposed tract to the neck incision. A skin incision was then made with a 15 blade and a pocket created in the subcutaneous tissue with cautery. A tunneler was then used to thread the catheter from the chest wall pocket to the neck incision. Once this was done fluoroscopy was brought into the field. Over the wire the tract was dilated using fluoroscopy. The wire and the dilator were then removed leaving the sheath in the vein. Through this, the catheter was threaded. Using fluoroscopy, the catheter was positioned into the distal SVC. The catheter was noted to flush and aspirate easily. The catheter was then connected to the port. The port was placed in the pocket and secured in place with 2 0 Prolene sutures. It was noted to flush and aspirate easily. This was then locked with heparinized saline. The skin was closed with absorbable suture. Glue was then applied. Instrument sponge and needle counts were correct at the end of the case. The patient was woken and taken to the recovery area in stable condition. ? The patient tolerated the procedure well. Findings: Right IJ power port placed in the low SVC Implants: Power port Anesthesia: MAC Surgeon: Lashon Davis MD Estimated blood loss (mL): 3 Condition: stable Disposition: same day
[2024-07-22] MEDS: CEFAZOLIN 1 GM inj IVP (09:25)
[2024-07-22] MEDS: 0.9% SODIUM CHL 50 ML VIAL INJECTION (09:45)
[2024-07-22] MEDS: LIDOCAINE 1% MDV 20 ML INJECTION (10:00)
[2024-07-22] MEDS: BUPIVACAINE 0.5% 30 ML INJECTION (10:00)
[2024-07-22] MEDS: HEPARIN 500 UNIT/5 ML SYRINGE IVF (10:00)
[2024-07-22 10:10] VITALS: BP 170/97; PULSE 74; RESP 16; TEMP 36.6; O2SAT 98
--- NOTE | 2024-07-22 10:14 | P.ANES_ITS ---
Anesthesia Charges Start Date/Time Anesthesia Start Date: 07/22/24 Anesthesia Start Time: 09:07 Stop Date/Time Anesthesia Stop Date: 07/22/24 Anesthesia Stop Time: 10:12 Coding CPT Codes CPT Codes: ANESTH VASCULAR ACCESS - 32580 ([id number]) QZ - MANPOWER DEVELOPMENT SPECIALIST MANAGER SVC W/O OVERHEAD CRANE TRUCK LOADER BY , P2 - PATIENT W/MILD SYST DISEASE
--- NOTE | 2024-07-22 10:14 | W.ANESCHARGE ---
Anesthesia Charges Start Date/Time Anesthesia Start Date: 07/22/24 Anesthesia Start Time: 09:07 Stop Date/Time Anesthesia Stop Date: 07/22/24 Anesthesia Stop Time: 10:12 Coding CPT Codes CPT Codes: ANESTH VASCULAR ACCESS - 85961 ([id number]) QZ - BEET END SUPERVISOR SVC W/O PLASTIC BOAT BUFFER BY , P2 - PATIENT W/MILD SYST DISEASE
[2024-07-22 10:30] VITALS: BP 158/83; PULSE 70; RESP 16; O2SAT 98
[2024-07-22 10:45] VITALS: BP 160/89; PULSE 73; RESP 16; O2SAT 98
[2024-07-22 11:00] VITALS: BP 150/79; PULSE 72; RESP 16; O2SAT 98
== END 2024-07-22 11:16 | disposition home or self-care (01) ==
PROVIDERS: PCP Family Medicine; Visit Provider Surgery
PROC: (CPT 36561; principal; 2024-07-22 09:00)
DX: Z45.2 Encounter for adjustment and management of vascular access device (principal); C34.92 Malignant neoplasm of unspecified part of left bronchus or lung; C78.7 Secondary malignant neoplasm of liver and intrahepatic bile duct; C79.31 Secondary malignant neoplasm of brain; C79.51 Secondary malignant neoplasm of bone; C77.8 Secondary and unspecified malignant neoplasm of lymph nodes of multiple regions
CPT/HCPCS: 36561; 00532; 71045; 76998; J2003; C1788; J0665; J0690; J1642; J2250; J2405; J2704; J3490; J7120

== ENCOUNTER 2024-07-26 10:40 | Outpatient (CLI) | payer BC, SELFPAY | END 2024-07-26 10:41 | disposition home or self-care (01) | LOC: US 10:41 | PROVIDERS: PCP Family Medicine; Visit Provider Internal Medicine Hematology & Oncology | DX: C34.92 Malignant neoplasm of unspecified part of left bronchus or lung (principal); C77.3 Secondary and unspecified malignant neoplasm of axilla and upper limb lymph nodes; R59.9 Enlarged lymph nodes, unspecified | CPT/HCPCS: 38505; 76942; 88305; 88341; 88342; A4648; A4649 ==

== ENCOUNTER 2024-09-11 13:00 | Outpatient (RCR) | payer BC, SELFPAY ==
--- NOTE | 2024-03-20 11:47 | URNOTE ---
Prior authorization is not required for Zoledronic acid (J3489) per . Ref #[id number].
[2024-03-25 15:32] LABS: Basophils Absolute Auto 0.02 K/uL (0.00-0.30); Basophils Percent Auto 0.3 % (0.0-3.0); Eosinophils Absolute Auto 0.16 K/uL (0.00-0.50); Eosinophils Percent Auto 2.5 % (0.0-7.0); Hematocrit 39.1 % (33.0-51.0); Hemoglobin* 12.9 gm/dL (12.0-16.0); Immature Granulocytes Abs Auto 0.05 K/uL (0.00-0.30); Immature Granulocytes Pct Auto 0.8 %; Lymphocytes Percent Auto 13.6 % (20-44); Mean Corpuscular HGB Conc 33 gm/dL (32-36); Mean Corpuscular Hemoglobin 32 pg (26-34); Mean Corpuscular Volume 98 fL (80-100); Monocytes Percent Auto 8.4 % (0.0-11.0); Neutrophils Percent Auto 74.4 % (42.0-72.0); Platelet Count* 247 K/uL (140-440); RDW Coefficient of Variation % 13.1 % (11.5-15.5); Red Blood Count 3.98 m/uL (4.00-5.20); Slide Review Reflex No; White Blood Count* 6.34 K/uL (4.50-11.00)
[2024-03-25 15:45] LABS: Albumin* 4.8 g/dL (3.3-5.0); Chloride* 99 mmol/L (96-114); Sodium* 135 mmol/L (135-149)
[2024-03-25 15:46] LABS: Potassium* 3.9 mmol/L (3.6-5.1)
[2024-03-25 15:48] LABS: Alanine Aminotransferase* 17 U/L (4-35); Alkaline Phosphatase* 46 U/L (40-150); Anion Gap 6 mEq/L (7-15); Aspartate Amino Transferase* 27 U/L (12-35); Bilirubin Total* 0.2 mg/dL (0.1-1.5); Blood Urea Nitrogen* 19 mg/dL (7-30); Carbon Dioxide* 30 mmol/L (20-32); Creatinine* 0.7 mg/dL (0.5-1.5); Estimated Glomerular Filt Rate 98 ml/min; Glucose* 88 mg/dL (60-115); Total Protein* 7.7 g/dL (6.0-8.3)
[2024-03-25 15:49] LABS: Calcium* 9.6 mg/dL (8.4-10.6)
[2024-03-26 13:56] VITALS: BP 109/71; PULSE 73; RESP 16; TEMP 36.9; O2SAT 99
[2024-03-26] MEDS: SODIUM CHLORIDE 0.9 % (FLUSH) 10 ML SYRINGE IVF (14:15)
[2024-03-26] MEDS: PEMBROLIZUMAB 400 MG, TUBING PRIMARY 1 EACH, In-line 0.2 micron filter set 1 EACH in 0.... 232 MG IVPB (14:28)
[2024-04-03] MEDS: SODIUM CHLORIDE 0.9 % (FLUSH) 10 ML SYRINGE IVF (15:30)
[2024-04-03] MEDS: ZOLEDRONIC ACID 4 MG in 0.9 % SODIUM CHLORIDE 100 ml 100 ML 420 MG IVPB (15:30)
[2024-05-03 12:00] LABS: Basophils Absolute Auto 0.02 K/uL (0.00-0.30); Basophils Percent Auto 0.4 % (0.0-3.0); Eosinophils Absolute Auto 0.15 K/uL (0.00-0.50); Lymphocytes Percent Auto 18.9 % (20-44); Mean Corpuscular HGB Conc 33 gm/dL (32-36); Mean Corpuscular Hemoglobin 32 pg (26-34); Mean Corpuscular Volume 100 fL (80-100); Monocytes Percent Auto 7.9 % (0.0-11.0); Neutrophils Absolute Auto 3.55 K/uL (1.7-7.0); Neutrophils Percent Auto 69.8 % (42.0-72.0); Platelet Count* 259 K/uL (140-440); RDW Coefficient of Variation % 12.6 % (11.5-15.5); Red Blood Count 4.02 m/uL (4.00-5.20); White Blood Count* 5.08 K/uL (4.50-11.00)
[2024-05-03 12:01] LABS: Slide Review Reflex No
[2024-05-03 12:12] LABS: Albumin* 4.6 g/dL (3.3-5.0); Chloride* 105 mmol/L (96-114); Potassium* 3.9 mmol/L (3.6-5.1); Sodium* 137 mmol/L (135-149)
[2024-05-03 12:14] LABS: Bilirubin Total* 0.3 mg/dL (0.1-1.5); Creatinine* 0.6 mg/dL (0.5-1.5); Est. Creatinine Clearance* 44.02; Estimated Glomerular Filt Rate 101 ml/min
[2024-05-03 12:15] LABS: Alanine Aminotransferase* 16 U/L (4-35); Alkaline Phosphatase* 46 U/L (40-150); Anion Gap 5 mEq/L (7-15); Aspartate Amino Transferase* 25 U/L (12-35); Blood Urea Nitrogen* 15 mg/dL (7-30); Calcium* 9.3 mg/dL (8.4-10.6); Carbon Dioxide* 27 mmol/L (20-32); Glucose* 76 mg/dL (60-115); Total Protein* 7.6 g/dL (6.0-8.3)
[2024-05-07] MEDS: PEMBROLIZUMAB 400 MG, TUBING PRIMARY 1 EACH, In-line 0.2 micron filter set 1 EACH in 0.... 232 MG IVPB (14:38)
[2024-05-07] MEDS: SODIUM CHLORIDE 0.9 % (FLUSH) 10 ML SYRINGE IVF (14:41)
[2024-06-17 14:38] LABS: Basophils Absolute Auto 0.04 K/uL (0.00-0.30); Basophils Percent Auto 0.8 % (0.0-3.0); Eosinophils Absolute Auto 0.11 K/uL (0.00-0.50); Eosinophils Percent Auto 2.2 % (0.0-7.0); Hematocrit 41.3 % (33.0-51.0); Hemoglobin* 13.5 gm/dL (12.0-16.0); Immature Granulocytes Abs Auto 0.01 K/uL (0.00-0.30); Immature Granulocytes Pct Auto 0.2 %; Lymphocytes Percent Auto 15.4 % (20-44); Mean Corpuscular HGB Conc 33 gm/dL (32-36); Mean Corpuscular Hemoglobin 32 pg (26-34); Mean Corpuscular Volume 98 fL (80-100); Monocytes Percent Auto 9.2 % (0.0-11.0); Neutrophils Percent Auto 72.2 % (42.0-72.0); Platelet Count* 257 K/uL (140-440); RDW Coefficient of Variation % 12.5 % (11.5-15.5); Red Blood Count 4.22 m/uL (4.00-5.20); White Blood Count* 5.01 K/uL (4.50-11.00)
[2024-06-17 14:48] LABS: Slide Review Reflex No
[2024-06-17 15:00] LABS: Albumin* 4.5 g/dL (3.3-5.0); Chloride* 101 mmol/L (96-114)
[2024-06-17 15:01] LABS: Potassium* 4.2 mmol/L (3.6-5.1); Sodium* 136 mmol/L (135-149)
[2024-06-17 15:03] LABS: Anion Gap 4 mEq/L (7-15); Aspartate Amino Transferase* 23 U/L (12-35); Bilirubin Total* 0.4 mg/dL (0.1-1.5); Carbon Dioxide* 31 mmol/L (20-32); Creatinine* 0.7 mg/dL (0.5-1.5); Est. Creatinine Clearance* 43.45; Estimated Glomerular Filt Rate 97 ml/min
[2024-06-17 15:04] LABS: Alanine Aminotransferase* 16 U/L (4-35); Alkaline Phosphatase* 45 U/L (40-150); Blood Urea Nitrogen* 16 mg/dL (7-30); Calcium* 9.7 mg/dL (8.4-10.6); Glucose* 94 mg/dL (60-115); Total Protein* 7.4 g/dL (6.0-8.3)
[2024-06-18 14:56] VITALS: BP 121/77; PULSE 65; RESP 16; TEMP 36.2; O2SAT 97
[2024-06-18] MEDS: SODIUM CHLORIDE 0.9 % (FLUSH) 10 ML SYRINGE IVF ×2 (15:11→16:05)
[2024-06-18] MEDS: PEMBROLIZUMAB 400 MG, TUBING PRIMARY 1 EACH, In-line 0.2 micron filter set 1 EACH in 0.... 232 MG IVPB (15:31)
[2024-07-05 10:54] VITALS: BP 131/81; PULSE 84; RESP 18; TEMP 36.4; O2SAT 96
[2024-07-05] MEDS: SODIUM CHLORIDE 0.9 % (FLUSH) 10 ML SYRINGE IVF ×2 (11:22→11:41)
[2024-07-05] MEDS: ZOLEDRONIC ACID 4 MG in 0.9 % SODIUM CHLORIDE 100 ml 100 ML 420 MG IVPB (11:24)
[2024-07-17] MEDS: CYANOCOBALAMIN 1,000 MCG/ML inj 1000 MCG IM (14:56)
--- NOTE | 2024-07-19 11:09 | URNOTE ---
Request received for authorization for Carboplatin (J9045), Pemetrexed (J9305), Fosaprepitant (J1453), Palonosetron (J2469), Fulphia (Q5108). Prior authorization is not required per [facility] Ref#[id number], date range: 07/29/2024 to 07/28/2025.
[2024-07-30] MEDS: SODIUM CHLORIDE 0.9 % (FLUSH) 10 ML SYRINGE IVF ×2 (09:10→12:04)
[2024-07-30 09:12] VITALS: BP 103/67; PULSE 70; RESP 16; TEMP 36.6; O2SAT 95
[2024-07-30 09:13] LABS: Basophils Absolute Auto 0.03 K/uL (0.00-0.30); Basophils Percent Auto 0.5 % (0.0-3.0); Eosinophils Absolute Auto 0.13 K/uL (0.00-0.50); Eosinophils Percent Auto 2.3 % (0.0-7.0); Hematocrit 37.2 % (33.0-51.0); Hemoglobin* 12.3 gm/dL (12.0-16.0); Immature Granulocytes Abs Auto 0.04 K/uL (0.00-0.30); Immature Granulocytes Pct Auto 0.7 %; Lymphocytes Percent Auto 12.7 % (20-44); Mean Corpuscular HGB Conc 33 gm/dL (32-36); Mean Corpuscular Hemoglobin 32 pg (26-34); Mean Corpuscular Volume 98 fL (80-100); Monocytes Percent Auto 9.7 % (0.0-11.0); Neutrophils Percent Auto 74.1 % (42.0-72.0); Platelet Count* 230 K/uL (140-440); RDW Coefficient of Variation % 12.4 % (11.5-15.5); Red Blood Count 3.81 m/uL (4.00-5.20); White Blood Count* 5.75 K/uL (4.50-11.00)
[2024-07-30 09:16] LABS: Slide Review Reflex No
[2024-07-30 09:25] LABS: Albumin* 4.2 g/dL (3.3-5.0); Chloride* 101 mmol/L (96-114); Sodium* 135 mmol/L (135-149)
[2024-07-30 09:26] LABS: Potassium* 4.4 mmol/L (3.6-5.1)
[2024-07-30 09:28] LABS: Alanine Aminotransferase* 17 U/L (4-35); Alkaline Phosphatase* 45 U/L (40-150); Anion Gap 6 mEq/L (7-15); Aspartate Amino Transferase* 23 U/L (12-35); Bilirubin Total* 0.2 mg/dL (0.1-1.5); Blood Urea Nitrogen* 21 mg/dL (7-30); Carbon Dioxide* 28 mmol/L (20-32); Creatinine* 0.6 mg/dL (0.5-1.5); Est. Creatinine Clearance* 43.45; Estimated Glomerular Filt Rate 101 ml/min; Glucose* 100 mg/dL (60-115); Total Protein* 6.7 g/dL (6.0-8.3)
[2024-07-30] MEDS: PALONOSETRON 0.25 MG/5 ML inj IVP (10:15)
[2024-07-30] MEDS: dexAMETHasone 10 MG/ML inj IVP (10:15)
[2024-07-30] MEDS: 0.9 % SODIUM CHLORIDE 250 ml IV (10:22)
[2024-07-30] MEDS: FOSAPREPITANT 150 MG inj 150 MG in 0.9 % SODIUM CHLORIDE 250 ml 250 ML 510 MG IVPB (10:26)
[2024-07-30] MEDS: PEMETREXED IV (10:59)
[2024-07-30] MEDS: TUBING SECONDARY IV (10:59)
[2024-07-30] MEDS: [UNRECOGNIZED DRUG - OTHER] IV (10:59)
[2024-07-30] MEDS: HEPARIN 500 UNIT/5 ML SYRINGE IVF (12:04)
[2024-07-31] MEDS: PEGFILGRASTIM-JMDB (Fulphila) 6 MG/0.6 ML SUBCUT (14:16)
[2024-08-19] MEDS: SODIUM CHLORIDE 0.9 % (FLUSH) 10 ML SYRINGE IVF (15:45)
[2024-08-19] MEDS: HEPARIN 500 UNIT/5 ML SYRINGE IVF (15:45)
[2024-08-19 15:51] LABS: Basophils Absolute Auto 0.03 K/uL (0.00-0.30); Basophils Percent Auto 0.5 % (0.0-3.0); Eosinophils Absolute Auto 0.02 K/uL (0.00-0.50); Eosinophils Percent Auto 0.4 % (0.0-7.0); Hematocrit 32.4 % (33.0-51.0); Hemoglobin* 10.8 gm/dL (12.0-16.0); Immature Granulocytes Abs Auto 0.01 K/uL (0.00-0.30); Immature Granulocytes Pct Auto 0.2 %; Lymphocytes Percent Auto 11.9 % (20-44); Mean Corpuscular HGB Conc 33 gm/dL (32-36); Mean Corpuscular Hemoglobin 33 pg (26-34); Mean Corpuscular Volume 99 fL (80-100); Monocytes Percent Auto 9.6 % (0.0-11.0); Neutrophils Percent Auto 77.4 % (42.0-72.0); Platelet Count* 280 K/uL (140-440); Red Blood Count 3.28 m/uL (4.00-5.20); White Blood Count* 5.71 K/uL (4.50-11.00)
[2024-08-19 15:59] LABS: Slide Review Reflex No
[2024-08-19 16:21] LABS: Chloride* 102 mmol/L (96-114); Potassium* 4.2 mmol/L (3.6-5.1); Sodium* 136 mmol/L (135-149)
[2024-08-19 16:24] LABS: Alanine Aminotransferase* 22 U/L (4-35); Alkaline Phosphatase* 61 U/L (40-150); Anion Gap 6 mEq/L (7-15); Aspartate Amino Transferase* 22 U/L (12-35); Bilirubin Total* 0.2 mg/dL (0.1-1.5); Blood Urea Nitrogen* 17 mg/dL (7-30); Carbon Dioxide* 28 mmol/L (20-32); Creatinine* 0.5 mg/dL (0.5-1.5); Est. Creatinine Clearance* 43.45; Estimated Glomerular Filt Rate 105 ml/min; Glucose* 88 mg/dL (60-115); Total Protein* 6.7 g/dL (6.0-8.3)
[2024-08-20] MEDS: SODIUM CHLORIDE 0.9 % (FLUSH) 10 ML SYRINGE IVF ×2 (09:32→11:15)
[2024-08-20] MEDS: 0.9 % SODIUM CHLORIDE 250 ml IV (09:32)
[2024-08-20] MEDS: PALONOSETRON 0.25 MG/5 ML inj IVP (09:33)
[2024-08-20] MEDS: dexAMETHasone 10 MG/ML inj IVP (09:34)
[2024-08-20] MEDS: FOSAPREPITANT 150 MG inj 150 MG in 0.9 % SODIUM CHLORIDE 250 ml 250 ML 510 MG IVPB (09:42)
[2024-08-20] MEDS: PEMETREXED IV (10:22)
[2024-08-20] MEDS: [UNRECOGNIZED DRUG - OTHER] IV (10:22)
[2024-08-20] MEDS: TUBING SECONDARY IV (10:22)
[2024-08-20] MEDS: HEPARIN 500 UNIT/5 ML SYRINGE IVF (11:15)
[2024-08-21] MEDS: PEGFILGRASTIM-JMDB (Fulphila) 6 MG/0.6 ML SUBCUT (13:14)
[2024-09-09] MEDS: SODIUM CHLORIDE 0.9 % (FLUSH) 10 ML SYRINGE IVF (15:40)
[2024-09-09] MEDS: HEPARIN 500 UNIT/5 ML SYRINGE IVF (15:40)
[2024-09-09 15:55] LABS: Albumin* 4.2 g/dL (3.3-5.0); Chloride* 103 mmol/L (96-114); Potassium* 4.1 mmol/L (3.6-5.1); Sodium* 138 mmol/L (135-149)
[2024-09-09 15:58] LABS: Alanine Aminotransferase* 20 U/L (4-35); Alkaline Phosphatase* 64 U/L (40-150); Anion Gap 8 mEq/L (7-15); Aspartate Amino Transferase* 26 U/L (12-35); Bilirubin Total* 0.3 mg/dL (0.1-1.5); Blood Urea Nitrogen* 16 mg/dL (7-30); Carbon Dioxide* 27 mmol/L (20-32); Creatinine* 0.6 mg/dL (0.5-1.5); Est. Creatinine Clearance* 43.45; Estimated Glomerular Filt Rate 101 ml/min; Total Protein* 6.8 g/dL (6.0-8.3)
[2024-09-09 15:59] LABS: Calcium* 9.2 mg/dL (8.4-10.6); Glucose* 107 mg/dL (60-115)
[2024-09-09 16:02] LABS: Basophils Absolute Auto 0.03 K/uL (0.00-0.30); Basophils Percent Auto 0.4 % (0.0-3.0); Eosinophils Absolute Auto 0.03 K/uL (0.00-0.50); Eosinophils Percent Auto 0.4 % (0.0-7.0); Hemoglobin* 10.3 gm/dL (12.0-16.0); Immature Granulocytes Abs Auto 0.03 K/uL (0.00-0.30); Immature Granulocytes Pct Auto 0.4 %; Lymphocytes Percent Auto 11.3 % (20-44); Mean Corpuscular HGB Conc 33 gm/dL (32-36); Mean Corpuscular Hemoglobin 33 pg (26-34); Mean Corpuscular Volume 100 fL (80-100); Monocytes Percent Auto 8.7 % (0.0-11.0); Neutrophils Percent Auto 78.8 % (42.0-72.0); Platelet Count* 265 K/uL (140-440); RDW Coefficient of Variation % 14.5 % (11.5-15.5); White Blood Count* 6.92 K/uL (4.50-11.00)
[2024-09-09 16:07] LABS: Slide Review Reflex No
[2024-09-10] MEDS: 0.9 % SODIUM CHLORIDE 250 ml IV (09:59)
[2024-09-10] MEDS: SODIUM CHLORIDE 0.9 % (FLUSH) 10 ML SYRINGE IVF ×2 (09:59→11:38)
[2024-09-10] MEDS: PALONOSETRON 0.25 MG/5 ML inj IVP (10:01)
[2024-09-10] MEDS: FOSAPREPITANT 150 MG inj 150 MG in 0.9 % SODIUM CHLORIDE 250 ml 250 ML 510 MG IVPB (10:03)
[2024-09-10] MEDS: DEXAMETHASONE 10 MG/ML PF IVP (10:36)
[2024-09-10] MEDS: TUBING SECONDARY IV (10:40)
[2024-09-10] MEDS: [UNRECOGNIZED DRUG - OTHER] IV (10:40)
[2024-09-10] MEDS: PEMETREXED IV (10:40)
[2024-09-10] MEDS: CYANOCOBALAMIN 1,000 MCG/ML inj 1000 MCG IM (11:37)
[2024-09-10] MEDS: HEPARIN 500 UNIT/5 ML SYRINGE IVF (11:38)
[2024-09-11 12:58] VITALS: BP 116/57; PULSE 61; RESP 18; TEMP 36.7; O2SAT 100
[2024-09-11] MEDS: PEGFILGRASTIM-JMDB (Fulphila) 6 MG/0.6 ML SUBCUT (13:21)
== END 2024-09-21 23:59 | disposition home or self-care (01) ==
LOC: CCIC 13:00
PROVIDERS: PCP Family Medicine; Referring Provider Family Medicine; Visit Provider Internal Medicine Hematology & Oncology
DX: C34.32 Malignant neoplasm of lower lobe, left bronchus or lung (principal); C79.51 Secondary malignant neoplasm of bone; Z29.89 Encounter for other specified prophylactic measures
CPT/HCPCS: 36415; 36591; 80053; 84443; 85025; 96365; 96367; 96372; 96374; 96375; 96411; 96413; 96417; 99214; 99215; G0463; J1100; J1453; J1642; J2469; J3420; J3489; J7050; J9045; J9271; J9305; Q5108

== ENCOUNTER 2024-10-17 15:10 | Outpatient (CLI) | payer BC, SELFPAY ==
--- NOTE | 2024-10-17 15:30 | CRLHL7_ITS ---
For Patients: As a result of the Century Cures Act, medical imaging exams and procedure reports are released immediately into your electronic medical record. You may view this report before your referring provider. If you have questions, please contact your health care provider. INDICATION: Breast cancer, evaluate for intracranial metastasis. TECHNIQUE: Multisequence multiplanar MRI of the brain prior to and following administration of 15 cc Dotarem gadolinium-based intravenous contrast. COMPARISON: MRI brain dated 07/12/2024. FINDINGS: No evidence of acute ischemia. Similar confluent T2 prolongation within the white matter of both cerebral hemispheres. Similar few scattered foci of punctate susceptibility artifact consistent with sequela of prior microhemorrhage. No focus of new or suspicious intracranial enhancement. The ventricles are unchanged in size. There is similar mild diffuse parenchymal volume loss. Flow voids of the larger intracranial arteries are preserved. Bone marrow signal intensity of the calvarium is within normal limits. The globes are symmetric. The paranasal sinuses and mastoid air cells are predominantly clear. IMPRESSION: 1. No focus of abnormal or suspicious intracranial enhancement. 2. Similar confluent T2 prolongation within the supratentorial white matter consistent with moderate chronic small-vessel ischemic and/or posttreatment changes. 3. Similar few scattered foci of punctate susceptibility artifact within both cerebral hemispheres consistent with sequela of prior microhemorrhages. Dictated by Dread Vargas MD @ 10/18/2024 11:51:11 AM (Electronically Signed)
--- NOTE | 2024-10-17 16:30 | CRLHL7_ITS ---
For Patients: As a result of the 21st Century Cures Act, medical imaging exams and procedure reports are released immediately into your electronic medical record. You may view this report before your referring provider. If you have questions, please contact your health care provider. EXAM: FDG PET-CT Skull Base to Thighs CLINICAL INFORMATION: 64-year-old woman with history of metastatic lung adenocarcinoma. Restaging TECHNIQUE: Radiopharmaceutical: 18F-fluorodeoxyglucose (18F-FDG) Dose: 8.76 milliCurie. Blood glucose: 87 mg/dL. Image acquisition: At approximately 60 minutes following IV tracer administration via a right antecubital vein, positron emission tomography was performed from the skull base through the mid thigh. Non-contrast low-dose helical CT imaging was performed over the same range without breath-hold for attenuation correction of PET images and anatomic correlation; it is neither sufficient, nor should it be substituted for diagnostic purposes. COMPARISON: FDG PET-CT 07/11/2024. MRI brain 10/17/2024. FINDINGS: Mediastinal blood pool FDG uptake: SUVMax 2.4 (Image 94) Liver background parenchymal FDG uptake: SUVMax 3.1 (Image 136) PET Findings: Refer to brain MRI 10/17/2024 for evaluation of metastatic disease in the brain. Overall decreased FDG uptake in pulmonary nodules, for example: *Decreased mild FDG avidity with similar size of a 1.7 x 1.6 cm left lower lobe nodule, SUVMax 3.0 (image 95) previously 2.0 x 1.8 cm, SUVMax 5.8 (image 102, remeasured in the same plane). *Resolved FDG uptake a 0.5 cm left upper lobe nodule (image 72), previously 0.5 cm and moderately FDG avid with SUV max 6.9. Overall decreased FDG avid lymphadenopathy above and below diaphragm, including axillary, mediastinal, hilar, gastrohepatic, periportal and pelvic lymph nodes, for example: *Decreased mildly FDG avid left hilar node SUVMax 2.7 (image 89) previously intensely FDG avid, SUVMax 12.3 (image 92, remeasured in the same plane). *Decreased mildly FDG avid 0.8 x 0.6 cm right axillary node, likely corresponding to a previously intensely FDG avid 1.6 x 1.3 cm right axillary node with SUVmax of 34.7 (image 67, remeasured in the same plane). *No discrete visualization of a previously intensely FDG avid periportal and gastrohepatic nodes *Resolved FDG avid left inguinal lymph node. *Resolved intensely FDG avid 0.9 x 0.7 cm midline pelvic mesenteric nodule SUVMax 33.2 (image 205) from 07/11/2024. *Resolved FDG avid left adrenal nodule. New diffusely increased marrow uptake in the axial and proximal appendicular skeleton likely representing reticuloendothelial cell activation. This is likely related to recent Neulasta administration. This obscures evaluation for [id number] FDG avid intramedullary or cortical osseous lesions. Within these limitations, some of the previously visualized FDG avid osseous metastases are decreased, for example: *Decreased faint FDG uptake at a left sacral lesion SUVMax 2.0 (image 190) previously SUVMax 11.7 (image 196, remeasured in the same plane). *Decreased left sacral ala lesion uptake SUVMax 2.4 (image 184) previously SUVMax 10.2 (Image 189, remeasured in the same plane). *Decreased right humeral head lesion uptake SUVMax 2.4 (image 63) previously SUVMax 4.1 (image 60, remeasured in the same plane). *Some non-FDG avid or faintly FDG avid scattered sclerotic lesions in the axial skeleton are demonstrated, likely treated or quiescent disease. Tracer uptake elsewhere is physiologic. Non-PET findings: Right internal jugular port catheter with the tip terminating at the cavoatrial junction. Coronary artery calcifications. Atherosclerotic calcifications of the thoracic and abdominal aorta. Upper lung predominant centrilobular emphysema. Contrast in bilateral renal calyces and ureters, and bladder, likely from same day contrast study. Degenerative changes in the spine. IMPRESSION: 1. Overall decreased FDG avidity of FDG avid pulmonary lesions, including a decreased mildly FDG avid 1.7 cm left lower lobe nodule that was previously intensely FDG avid, likely representing posttreatment change. 2. Overall decreased FDG avid helga metastases above and below the diaphragm, with resolved upper abdominal and pelvic helga metastases and resolved intensely FDG avid pelvic mesenteric metastasis. Findings likely represent posttreatment change. 3. Diffusely increased marrow uptake in the axial and proximal appendicular skeleton likely related to recent Neulasta administration, which overall obscures evaluation for metabolic uptake FDG avid osseous metastases. Within these limitations, some of the previously visualized FDG avid osseous metastases are decreased. 4. Resolve FDG avid left adrenal nodule, likely posttreatment change at an adrenal metastasis. 5. Refer to brain MRI 10/17/2024 for evaluation of metastatic disease in the brain. Dictated by Elio Solis MD @ 10/18/2024 9:27:15 PM (Electronically Signed)
== END 2024-10-17 15:11 | disposition home or self-care (01) ==
LOC: MRI 15:11
PROVIDERS: PCP Family Medicine; Visit Provider Internal Medicine Hematology & Oncology
DX: C34.32 Malignant neoplasm of lower lobe, left bronchus or lung (principal); R91.8 Other nonspecific abnormal finding of lung field; C79.51 Secondary malignant neoplasm of bone
CPT/HCPCS: 70553; 78815; A9552; A9575

== ENCOUNTER 2025-01-09 14:17 | Outpatient (CLI) | payer BC, SELFPAY ==
--- NOTE | 2025-01-09 14:30 | CRLHL7_ITS ---
For Patients: As a result of the Century Cures Act, medical imaging exams and procedure reports are released immediately into your electronic medical record. You may view this report before your referring provider. If you have questions, please contact your health care provider. INDICATION: : Lung cancer. Patient was diagnosed with a 4 centimeter left lower lobe spiculated mass in 2022 with metastasis. Patient underwent brain radiation. Patient underwent immunotherapy. Follow-up revealed bone metastasis. TECHNIQUE: Radiopharmaceutical: 18F-fluorodeoxyglucose (18F-FDG) Dose: 13.97 milliCurie. Blood glucose: 86 mg/dL. Image acquisition: At approximately 60 minutes following IV tracer administration via an access port, positron emission tomography was performed from the skull base through the mid thigh. Non-contrast low-dose helical CT imaging was performed over the same range without breath-hold for attenuation correction of PET images and anatomic correlation; it is neither sufficient, nor should it be substituted for diagnostic purposes. COMPARISON: 10/17/2024, 07/11/2024 FINDINGS: FINDINGS: Mediastinal blood pool FDG uptake: SUVMax 2.1 Liver background parenchymal FDG uptake: SUVMax 2.4 HEAD AND NECK: Hypermetabolic small nodule in the right parotid gland can not be seen discretely on noncontrast CT and has a max SUV of 3.9. Similar on previous exams. CHEST: Ports and devices: Right IJ chest port distal tip superior cavoatrial junction. Lungs: Spiculated left lower lobe nodule measures 1.7 x 1.3 cm. Max SUV is 4.1. Previously measured 1.7 x 1.6 with a max SUV of 3.0. Emphysema. Scattered non avid small pulmonary nodules, for example a nodule in the right upper lobe with a max SUV of 0.9.. Pleura: No abnormal FDG uptake.. Lymph Nodes: Small right hilar lymph node can not be discretely measured. Max SUV 4.7, previously 2.9. Left anterior hilar lymph node can not be discretely measured. Has a max SUV of 3.0, previously 2.7. Left lower hilar lymph node can not be discretely measured. It has a max SUV of 10.4, previously 7.4. Left axillary lymph node measures 1.3 x 0.7 cm has a max SUV of 2.8, previously 2.6. Previously seen hypermetabolic right axillary lymph node not seen today. Mediastinum:No abnormal FDG uptake. Chest Wall:No abnormal FDG uptake. ABDOMEN/PELVIS: Liver/biliary system: No abnormal FDG uptake. Pancreas: No abnormal FDG uptake. Spleen: No abnormal FDG uptake. Adrenal Glands:No abnormal FDG uptake. Kidneys:No abnormal FDG uptake. Bowel:No abnormal FDG uptake. Mesentery, Omentum and Peritoneum: No abnormal FDG uptake. Pelvic Organs: No abnormal FDG uptake. Lymph Nodes: No abnormal FDG uptake. MUSCULOSKELETAL: Previously seen marrow activation has resolved. Left sacrum, superior: Max SUV 2.7, previously 2.0. Left sacral ala max SUV 1.3, previously 2.4. Right posterior humeral head: Max SUV 2.9, previously 2.4. No new hypermetabolic bone lesions. Diffuse sclerotic bone mets. Degenerative change around the left shoulder. IMPRESSION: 1. Slightly increased metabolic activity in the left lower lobe nodule and bilateral hilar lymph nodes. No appreciable increase in size of any of these lesions. May represent progression. 2. Previously seen hypermetabolic right axillary lymph node has resolved. Other helga areas are about the same. 3. Similar metabolic activity in several measured sclerotic bone lesions. No new hypermetabolic bone lesions. 4. No new sites of metastasis. Dictated by Rupa Webb MD @ 01/11/2025 1:18:39 PM (Electronically Signed)
== END 2025-01-09 14:18 | disposition home or self-care (01) ==
LOC: RAD 14:17
PROVIDERS: PCP Family Medicine; Visit Provider Internal Medicine Hematology & Oncology
DX: C34.32 Malignant neoplasm of lower lobe, left bronchus or lung (principal)
CPT/HCPCS: 78815; A9552

== ENCOUNTER 2025-01-10 14:55 | Outpatient (CLI) | payer BC, SELFPAY ==
--- NOTE | 2025-01-10 15:30 | CRLHL7_ITS ---
For Patients: As a result of the Century Cures Act, medical imaging exams and procedure reports are released immediately into your electronic medical record. You may view this report before your referring provider. If you have questions, please contact your health care provider. Indication: Small cell lung cancer Technique: Noncontrast sagittal T1, axial FLAIR, T2 turbo spine echo, and diffusion weighted images. Supplemental post contrast T1 weighted axial and coronal sequences are provided after administration of 15 cc gadolinium-based IV contrast. Comparison: MRI brain 10/17/2024 Findings: The ventricles, sulci and gyri are normal size, shape and contour for age. Multiple scattered confluent and patchy foci of T2 prolongation in the supratentorial white matter are nonspecific. Similar few scattered foci of punctate susceptibility artifact within both cerebral hemispheres consistent with sequela of prior microhemorrhages. The midline structures are centrally located with no evidence of shift. There are no suspicious intra or extra-axial fluid collections. No evidence of restricted diffusion to suggest acute ischemia. Expected flow voids in the cavernous carotids and basilar artery. No abnormal contrast enhancement involving the brain parenchyma, meninges, calvarium or skull base. The patient is edentulous. The pituitary gland, optic chiasm, pineal gland, and cerebellar tonsils are unremarkable. Mild left mastoid effusion. Impression: 1. No acute intracranial abnormality. No significant changes compared to the prior study. 2. Moderate chronic small vessel ischemic changes. 3. No pathologic enhancement to suggest intracranial metastases. Dictated by Vahid Valentine MD @ 01/11/2025 3:19:54 PM (Electronically Signed)
== END 2025-01-10 14:56 | disposition home or self-care (01) ==
LOC: MRI 14:55
PROVIDERS: PCP Family Medicine; Visit Provider Internal Medicine Hematology & Oncology
DX: C34.92 Malignant neoplasm of unspecified part of left bronchus or lung (principal); I67.82 Cerebral ischemia
CPT/HCPCS: 70553; A9575

== ENCOUNTER 2025-03-26 09:45 | Outpatient (RCR) | payer BC, SELFPAY ==
[2024-09-30 16:06] LABS: Hematocrit* 30.3 % (33.0-51.0); Hemoglobin* 10.1 gm/dL (12.0-16.0); Immature Granulocytes Abs Auto 0.01 K/uL (0.00-0.30); Immature Granulocytes Pct Auto 0.2 %; Lymphocytes Absolute Auto 0.70 K/uL (0.90-2.90); Mean Corpuscular HGB Conc 33 gm/dL (32-36); Mean Corpuscular Hemoglobin 34 pg (26-34); Mean Corpuscular Volume 102 fL (80-100); RDW Coefficient of Variation % 17.0 % (11.5-15.5); Red Blood Count* 2.96 m/uL (4.00-5.20); White Blood Count* 4.90 K/uL (4.50-11.00)
[2024-09-30 16:11] LABS: Slide Review Reflex No
[2024-09-30 16:28] LABS: Albumin* 4.3 g/dL (3.3-5.0); Chloride* 103 mmol/L (96-114); Potassium* 3.8 mmol/L (3.6-5.1); Sodium* 136 mmol/L (135-149)
[2024-09-30 16:30] LABS: Blood Urea Nitrogen* 13 mg/dL (7-30); Creatinine* 0.6 mg/dL (0.5-1.5); Estimated Glomerular Filt Rate 101 ml/min
[2024-09-30 16:31] LABS: Alanine Aminotransferase* 24 U/L (4-35); Alkaline Phosphatase* 64 U/L (40-150); Anion Gap 5 mEq/L (7-15); Aspartate Amino Transferase* 29 U/L (12-35); Bilirubin Total* 0.3 mg/dL (0.1-1.5); Calcium* 9.2 mg/dL (8.4-10.6); Carbon Dioxide* 28 mmol/L (20-32); Glucose* 99 mg/dL (60-115); Total Protein* 7.1 g/dL (6.0-8.3)
[2024-10-01] MEDS: ZOLEDRONIC ACID 4 MG in 0.9 % SODIUM CHLORIDE 100 ml 100 ML 400 MG IVPB (09:52)
[2024-10-01] MEDS: DEXAMETHASONE 10 MG/ML PF IVP (10:09)
[2024-10-01] MEDS: FOSAPREPITANT 150 MG inj 150 MG in 0.9 % SODIUM CHLORIDE 250 ml 250 ML 510 MG IVPB (10:09)
[2024-10-01] MEDS: SODIUM CHLORIDE 0.9 % (FLUSH) 10 ML SYRINGE IVF ×2 (10:09→11:45)
[2024-10-01] MEDS: PEMETREXED IV (10:56)
[2024-10-01] MEDS: [UNRECOGNIZED DRUG - OTHER] IV (10:56)
[2024-10-01] MEDS: TUBING SECONDARY IV (10:56)
[2024-10-01] MEDS: CARBOPLATIN IVPB (11:12)
[2024-10-01] MEDS: SODIUM CHLORIDE 0.9% IVPB (11:12)
[2024-10-01] MEDS: TUBING SECONDARY IVPB (11:12)
[2024-10-01] MEDS: HEPARIN 500 UNIT/5 ML SYRINGE IVF (11:45)
[2024-10-02 14:56] VITALS: BP 135/72; PULSE 62; RESP 20; TEMP 35.8; O2SAT 96
[2024-10-02] MEDS: PEGFILGRASTIM-JMDB (Fulphila) 6 MG/0.6 ML SUBCUT (14:58)
--- NOTE | 2024-10-15 09:30 | ONC.NURNOTE ---
Received a call from [employer] [facility] that they have not been able to get a hold of Sandrine for her upcoming PET Scan on 10/17. RN called patient's SO Josef's number and LVM that they needed to call [facility] back at [facility] for her scan on 10/17. Advised them to call if they had questions.
[2024-10-21 15:39] LABS: Hematocrit* 28.9 % (33.0-51.0); Hemoglobin* 9.8 gm/dL (12.0-16.0); Immature Granulocytes Abs Auto 0.05 K/uL (0.00-0.30); Immature Granulocytes Pct Auto 1.0 %; Mean Corpuscular HGB Conc 34 gm/dL (32-36); Mean Corpuscular Hemoglobin 36 pg (26-34); Mean Corpuscular Volume 106 fL (80-100); RDW Coefficient of Variation % 17.7 % (11.5-15.5); Red Blood Count* 2.72 m/uL (4.00-5.20); White Blood Count* 4.80 K/uL (4.50-11.00)
[2024-10-21] MEDS: SODIUM CHLORIDE 0.9 % (FLUSH) 10 ML SYRINGE IVF (15:40)
[2024-10-21] MEDS: HEPARIN 500 UNIT/5 ML SYRINGE IVF (15:40)
[2024-10-21 15:44] LABS: Lymphocytes Absolute Auto 0.60 K/uL (0.90-2.90); Slide Review Reflex No
[2024-10-21 16:00] LABS: Albumin* 4.1 g/dL (3.3-5.0); Chloride* 102 mmol/L (96-114); Potassium* 4.3 mmol/L (3.6-5.1); Sodium* 135 mmol/L (135-149)
[2024-10-21 16:02] LABS: Blood Urea Nitrogen* 15 mg/dL (7-30); Creatinine* 0.6 mg/dL (0.5-1.5); Est. Creatinine Clearance* 43.45; Estimated Glomerular Filt Rate 101 ml/min
[2024-10-21 16:03] LABS: Alanine Aminotransferase* 20 U/L (4-35); Alkaline Phosphatase* 62 U/L (40-150); Anion Gap 3 mEq/L (7-15); Aspartate Amino Transferase* 31 U/L (12-35); Bilirubin Total* 0.4 mg/dL (0.1-1.5); Calcium* 9.1 mg/dL (8.4-10.6); Carbon Dioxide* 30 mmol/L (20-32); Glucose* 109 mg/dL (60-115); Total Protein* 6.8 g/dL (6.0-8.3)
[2024-10-22] MEDS: DEXAMETHASONE 10 MG/ML PF IVP (10:52)
[2024-10-22] MEDS: SODIUM CHLORIDE 0.9 % (FLUSH) 10 ML SYRINGE IVF ×2 (10:52→12:44)
[2024-10-22] MEDS: FOSAPREPITANT 150 MG inj 150 MG in 0.9 % SODIUM CHLORIDE 250 ml 250 ML 660 MG IVPB (11:13)
[2024-10-22] MEDS: TUBING SECONDARY IV (11:51)
[2024-10-22] MEDS: [UNRECOGNIZED DRUG - OTHER] IV (11:51)
[2024-10-22] MEDS: PEMETREXED IV (11:51)
[2024-10-22] MEDS: CARBOPLATIN IVPB (12:06)
[2024-10-22] MEDS: SODIUM CHLORIDE 0.9% IVPB (12:06)
[2024-10-22] MEDS: TUBING SECONDARY IVPB (12:06)
[2024-10-22] MEDS: HEPARIN 500 UNIT/5 ML SYRINGE IVF (12:44)
[2024-10-23] MEDS: PEGFILGRASTIM-JMDB (Fulphila) 6 MG/0.6 ML SUBCUT (15:08)
[2024-11-11 15:21] LABS: Hematocrit* 28.5 % (33.0-51.0); Hemoglobin* 9.5 gm/dL (12.0-16.0); Immature Granulocytes Abs Auto 0.00 K/uL (0.00-0.30); Immature Granulocytes Pct Auto 0.0 %; Mean Corpuscular HGB Conc 33 gm/dL (32-36); Mean Corpuscular Hemoglobin 37 pg (26-34); Mean Corpuscular Volume 110 fL (80-100); RDW Coefficient of Variation % 16.9 % (11.5-15.5); Red Blood Count* 2.60 m/uL (4.00-5.20); White Blood Count* 5.67 K/uL (4.50-11.00)
[2024-11-11 15:24] LABS: Lymphocytes Absolute Auto 0.80 K/uL (0.90-2.90); Slide Review Reflex No
[2024-11-11 15:30] LABS: Albumin* 4.1 g/dL (3.3-5.0); Chloride* 103 mmol/L (96-114); Sodium* 137 mmol/L (135-149)
[2024-11-11 15:31] LABS: Potassium* 3.9 mmol/L (3.6-5.1)
[2024-11-11 15:33] LABS: Alanine Aminotransferase* 20 U/L (4-35); Anion Gap 5 mEq/L (7-15); Aspartate Amino Transferase* 29 U/L (12-35); Blood Urea Nitrogen* 16 mg/dL (7-30); Carbon Dioxide* 29 mmol/L (20-32); Creatinine* 0.8 mg/dL (0.5-1.5); Est. Creatinine Clearance* 43.45; Estimated Glomerular Filt Rate 83 ml/min; Total Protein* 6.6 g/dL (6.0-8.3)
[2024-11-11 15:34] LABS: Alkaline Phosphatase* 56 U/L (40-150); Bilirubin Total* 0.3 mg/dL (0.1-1.5); Calcium* 9.4 mg/dL (8.4-10.6); Glucose* 92 mg/dL (60-115)
[2024-11-12] MEDS: SODIUM CHLORIDE 0.9 % (FLUSH) 10 ML SYRINGE IVF ×2 (09:44→10:30)
[2024-11-12] MEDS: [UNRECOGNIZED DRUG - OTHER] IV (10:05)
[2024-11-12] MEDS: TUBING SECONDARY IV (10:05)
[2024-11-12] MEDS: PEMETREXED IV (10:05)
[2024-11-12] MEDS: HEPARIN 500 UNIT/5 ML SYRINGE IVF (10:30)
[2024-12-02 15:30] LABS: Hematocrit* 31.4 % (33.0-51.0); Hemoglobin* 10.5 gm/dL (12.0-16.0); Immature Granulocytes Abs Auto 0.06 K/uL (0.00-0.30); Immature Granulocytes Pct Auto 1.2 %; Mean Corpuscular HGB Conc 33 gm/dL (32-36); Mean Corpuscular Hemoglobin 37 pg (26-34); Mean Corpuscular Volume 110 fL (80-100); RDW Coefficient of Variation % 13.4 % (11.5-15.5); Red Blood Count* 2.86 m/uL (4.00-5.20); White Blood Count* 5.07 K/uL (4.50-11.00)
[2024-12-02 16:02] LABS: Lymphocytes Absolute Auto 0.70 K/uL (0.90-2.90)
[2024-12-02 16:04] LABS: Slide Review Reflex No
[2024-12-02 16:07] LABS: Albumin* 4.2 g/dL (3.3-5.0); Chloride* 104 mmol/L (96-114); Potassium* 4.0 mmol/L (3.6-5.1); Sodium* 137 mmol/L (135-149)
[2024-12-02 16:10] LABS: Alanine Aminotransferase* 20 U/L (4-35); Alkaline Phosphatase* 44 U/L (40-150); Anion Gap 5 mEq/L (7-15); Aspartate Amino Transferase* 32 U/L (12-35); Bilirubin Total* 0.4 mg/dL (0.1-1.5); Blood Urea Nitrogen* 12 mg/dL (7-30); Calcium* 9.4 mg/dL (8.4-10.6); Carbon Dioxide* 28 mmol/L (20-32); Creatinine* 0.7 mg/dL (0.5-1.5); Est. Creatinine Clearance* 43.45; Estimated Glomerular Filt Rate 97 ml/min; Glucose* 119 mg/dL (60-115); Total Protein* 6.8 g/dL (6.0-8.3)
[2024-12-03 08:21] VITALS: BP 130/75; PULSE 63; RESP 15; TEMP 36.2; O2SAT 98
[2024-12-03] MEDS: SODIUM CHLORIDE 0.9 % (FLUSH) 10 ML SYRINGE IVF ×2 (09:05→09:45)
[2024-12-03] MEDS: DEXAMETHASONE 10 MG/ML PF IVP (09:08)
[2024-12-03] MEDS: PEMETREXED IV (09:27)
[2024-12-03] MEDS: [UNRECOGNIZED DRUG - OTHER] IV (09:27)
[2024-12-03] MEDS: TUBING SECONDARY IV (09:27)
[2024-12-03] MEDS: HEPARIN 500 UNIT/5 ML SYRINGE IVF (09:45)
[2024-12-23] MEDS: HEPARIN 500 UNIT/5 ML SYRINGE IVF (15:15)
[2024-12-23] MEDS: SODIUM CHLORIDE 0.9 % (FLUSH) 10 ML SYRINGE IVF (15:15)
[2024-12-23 15:23] LABS: Hematocrit* 33.6 % (33.0-51.0); Hemoglobin* 11.2 gm/dL (12.0-16.0); Immature Granulocytes Abs Auto 0.00 K/uL (0.00-0.30); Immature Granulocytes Pct Auto 0.0 %; Mean Corpuscular HGB Conc 33 gm/dL (32-36); Mean Corpuscular Hemoglobin 36 pg (26-34); Mean Corpuscular Volume 109 fL (80-100); RDW Coefficient of Variation % 12.5 % (11.5-15.5); Red Blood Count* 3.09 m/uL (4.00-5.20); White Blood Count* 4.83 K/uL (4.50-11.00)
[2024-12-23 15:41] LABS: Albumin* 4.3 g/dL (3.3-5.0); Chloride* 105 mmol/L (96-114); Sodium* 136 mmol/L (135-149)
[2024-12-23 15:42] LABS: Potassium* 4.1 mmol/L (3.6-5.1)
[2024-12-23 15:43] LABS: Lymphocytes Absolute Auto 1.00 K/uL (0.90-2.90)
[2024-12-23 15:44] LABS: Alanine Aminotransferase* 22 U/L (4-35); Alkaline Phosphatase* 47 U/L (40-150); Anion Gap 3 mEq/L (7-15); Aspartate Amino Transferase* 33 U/L (12-35); Bilirubin Total* 0.2 mg/dL (0.1-1.5); Blood Urea Nitrogen* 13 mg/dL (7-30); Carbon Dioxide* 28 mmol/L (20-32); Creatinine* 0.6 mg/dL (0.5-1.5); Est. Creatinine Clearance* 43.45; Estimated Glomerular Filt Rate 101 ml/min; Slide Review Reflex No; Total Protein* 6.9 g/dL (6.0-8.3)
[2024-12-23 15:45] LABS: Calcium* 9.4 mg/dL (8.4-10.6); Glucose* 89 mg/dL (60-115)
[2024-12-24] MEDS: SODIUM CHLORIDE 0.9 % (FLUSH) 10 ML SYRINGE IVF ×2 (08:58→09:30)
[2024-12-24] MEDS: DEXAMETHASONE 10 MG/ML PF IVP (09:02)
[2024-12-24] MEDS: PEMETREXED IV (09:17)
[2024-12-24] MEDS: [UNRECOGNIZED DRUG - OTHER] IV (09:17)
[2024-12-24] MEDS: TUBING SECONDARY IV (09:17)
[2024-12-24] MEDS: HEPARIN 500 UNIT/5 ML SYRINGE IVF (09:30)
[2025-01-01 15:34] VITALS: BP 110/67; PULSE 75; RESP 16; TEMP 36.7; O2SAT 98
[2025-01-01] MEDS: ZOLEDRONIC ACID 4 MG in 0.9 % SODIUM CHLORIDE 100 ml 100 ML 400 MG IVPB (15:42)
[2025-01-01] MEDS: HEPARIN 500 UNIT/5 ML SYRINGE IVF (15:44)
[2025-01-01] MEDS: SODIUM CHLORIDE 0.9 % (FLUSH) 10 ML SYRINGE IVF (15:44)
[2025-01-14 14:50] LABS: Hematocrit* 33.3 % (33.0-51.0); Hemoglobin* 11.2 gm/dL (12.0-16.0); Immature Granulocytes Abs Auto 0.01 K/uL (0.00-0.30); Immature Granulocytes Pct Auto 0.2 %; Lymphocytes Absolute Auto 0.94 K/uL (0.90-2.90); Mean Corpuscular HGB Conc 34 gm/dL (32-36); Mean Corpuscular Hemoglobin 36 pg (26-34); Mean Corpuscular Volume 107 fL (80-100); RDW Coefficient of Variation % 12.4 % (11.5-15.5); Red Blood Count* 3.11 m/uL (4.00-5.20); Slide Review Reflex No; White Blood Count* 4.56 K/uL (4.50-11.00)
[2025-01-14 15:12] LABS: Albumin* 4.1 g/dL (3.3-5.0); Chloride* 103 mmol/L (96-114); Potassium* 4.1 mmol/L (3.6-5.1); Sodium* 135 mmol/L (135-149)
[2025-01-14 15:15] LABS: Alanine Aminotransferase* 18 U/L (4-35); Alkaline Phosphatase* 48 U/L (40-150); Anion Gap 3 mEq/L (7-15); Aspartate Amino Transferase* 31 U/L (12-35); Bilirubin Total* 0.3 mg/dL (0.1-1.5); Blood Urea Nitrogen* 16 mg/dL (7-30); Calcium* 9.4 mg/dL (8.4-10.6); Carbon Dioxide* 29 mmol/L (20-32); Creatinine* 0.7 mg/dL (0.5-1.5); Est. Creatinine Clearance* 43.45; Estimated Glomerular Filt Rate 97 ml/min; Glucose* 90 mg/dL (60-115); Total Protein* 6.8 g/dL (6.0-8.3)
[2025-01-14] MEDS: SODIUM CHLORIDE 0.9 % (FLUSH) 10 ML SYRINGE IVF ×2 (15:34→16:05)
[2025-01-14] MEDS: DEXAMETHASONE 10 MG/ML PF IVP (15:37)
[2025-01-14] MEDS: [UNRECOGNIZED DRUG - OTHER] IV (15:48)
[2025-01-14] MEDS: TUBING SECONDARY IV (15:48)
[2025-01-14] MEDS: PEMETREXED IV (15:48)
[2025-01-14] MEDS: HEPARIN 500 UNIT/5 ML SYRINGE IVF (16:05)
[2025-01-22] MEDS: SODIUM CHLORIDE 0.9 % (FLUSH) 10 ML SYRINGE IVF (08:31)
[2025-02-13] MEDS: SODIUM CHLORIDE 0.9 % (FLUSH) 10 ML SYRINGE IVF ×3 (09:55→12:30)
[2025-02-13 10:04] LABS: Hematocrit* 35.9 % (33.0-51.0); Hemoglobin* 12.1 gm/dL (12.0-16.0); Immature Granulocytes Pct Auto 0.2 %; Mean Corpuscular HGB Conc 34 gm/dL (32-36); Mean Corpuscular Hemoglobin 35 pg (26-34); Mean Corpuscular Volume 104 fL (80-100); RDW Coefficient of Variation % 12.3 % (11.5-15.5); Red Blood Count* 3.44 m/uL (4.00-5.20); White Blood Count* 4.27 K/uL (4.50-11.00)
[2025-02-13 10:20] LABS: Immature Granulocytes Abs Auto 0.00 K/uL (0.00-0.30); Lymphocytes Absolute Auto 0.60 K/uL (0.90-2.90)
[2025-02-13 10:21] LABS: Slide Review Reflex No
[2025-02-13 10:26] LABS: Albumin* 4.1 g/dL (3.3-5.0); Chloride* 106 mmol/L (96-114); Potassium* 4.1 mmol/L (3.6-5.1); Sodium* 137 mmol/L (135-149)
[2025-02-13 10:28] LABS: Alanine Aminotransferase* 16 U/L (4-35); Anion Gap 5 mEq/L (7-15); Aspartate Amino Transferase* 31 U/L (12-35); Blood Urea Nitrogen* 12 mg/dL (7-30); Carbon Dioxide* 26 mmol/L (20-32); Creatinine* 0.6 mg/dL (0.5-1.5); Est. Creatinine Clearance* 43.45; Estimated Glomerular Filt Rate 101 ml/min
[2025-02-13 10:29] LABS: Alkaline Phosphatase* 47 U/L (40-150); Bilirubin Total* 0.5 mg/dL (0.1-1.5); Calcium* 9.1 mg/dL (8.4-10.6); Glucose* 93 mg/dL (60-115); Total Protein* 7.0 g/dL (6.0-8.3)
[2025-02-13] MEDS: DEXAMETHASONE 10 MG/ML PF IVP (11:37)
[2025-02-13] MEDS: [UNRECOGNIZED DRUG - OTHER] IV (12:17)
[2025-02-13] MEDS: TUBING SECONDARY IV (12:17)
[2025-02-13] MEDS: PEMETREXED IV (12:17)
[2025-02-13] MEDS: HEPARIN 500 UNIT/5 ML SYRINGE IVF (12:30)
[2025-03-06 10:50] LABS: Hematocrit* 34.7 % (33.0-51.0); Hemoglobin* 11.6 gm/dL (12.0-16.0); Immature Granulocytes Abs Auto 0.00 K/uL (0.00-0.30); Immature Granulocytes Pct Auto 0.0 %; Mean Corpuscular HGB Conc 33 gm/dL (32-36); Mean Corpuscular Hemoglobin 35 pg (26-34); Mean Corpuscular Volume 104 fL (80-100); RDW Coefficient of Variation % 13.0 % (11.5-15.5); Red Blood Count* 3.33 m/uL (4.00-5.20); White Blood Count* 4.08 K/uL (4.50-11.00)
[2025-03-06 10:56] LABS: Lymphocytes Absolute Auto 0.60 K/uL (0.90-2.90)
[2025-03-06 10:57] LABS: Slide Review Reflex No
[2025-03-06 11:04] LABS: Albumin* 3.9 g/dL (3.3-5.0); Chloride* 105 mmol/L (96-114); Potassium* 4.3 mmol/L (3.6-5.1); Sodium* 137 mmol/L (135-149)
[2025-03-06 11:06] LABS: Blood Urea Nitrogen* 11 mg/dL (7-30); Creatinine* 0.6 mg/dL (0.5-1.5); Est. Creatinine Clearance* 43.45; Estimated Glomerular Filt Rate 101 ml/min
[2025-03-06 11:07] LABS: Alanine Aminotransferase* 20 U/L (4-35); Alkaline Phosphatase* 45 U/L (40-150); Anion Gap 5 mEq/L (7-15); Aspartate Amino Transferase* 33 U/L (12-35); Bilirubin Total* 0.4 mg/dL (0.1-1.5); Calcium* 8.9 mg/dL (8.4-10.6); Carbon Dioxide* 27 mmol/L (20-32); Glucose* 114 mg/dL (60-115); Total Protein* 6.8 g/dL (6.0-8.3)
[2025-03-06 11:15] VITALS: BP 134/78; PULSE 78; RESP 15; TEMP 37.1; O2SAT 98
[2025-03-06] MEDS: DEXAMETHASONE 10 MG/ML PF IVP (11:25)
[2025-03-06] MEDS: SODIUM CHLORIDE 0.9 % (FLUSH) 10 ML SYRINGE IVF ×2 (11:32→12:23)
[2025-03-06] MEDS: TUBING SECONDARY IV (12:07)
[2025-03-06] MEDS: PEMETREXED IV (12:07)
[2025-03-06] MEDS: [UNRECOGNIZED DRUG - OTHER] IV (12:07)
[2025-03-06] MEDS: HEPARIN 500 UNIT/5 ML SYRINGE IVF (12:22)
[2025-03-11] MEDS: HEPARIN 500 UNIT/5 ML SYRINGE IVF (13:40)
[2025-03-11] MEDS: SODIUM CHLORIDE 0.9 % (FLUSH) 10 ML SYRINGE IVF (13:40)
[2025-03-26] MEDS: SODIUM CHLORIDE 0.9 % (FLUSH) 10 ML SYRINGE IVF ×2 (09:50→12:21)
[2025-03-26 10:03] LABS: Hematocrit* 34.7 % (33.0-51.0); Hemoglobin* 11.6 gm/dL (12.0-16.0); Immature Granulocytes Abs Auto 0.00 K/uL (0.00-0.30); Immature Granulocytes Pct Auto 0.0 %; Mean Corpuscular HGB Conc 33 gm/dL (32-36); Mean Corpuscular Hemoglobin 35 pg (26-34); Mean Corpuscular Volume 105 fL (80-100); RDW Coefficient of Variation % 13.4 % (11.5-15.5); Red Blood Count* 3.31 m/uL (4.00-5.20); White Blood Count* 3.82 K/uL (4.50-11.00)
[2025-03-26 10:07] LABS: Lymphocytes Absolute Auto 0.40 K/uL (0.90-2.90); Slide Review Reflex No
[2025-03-26 10:16] LABS: Albumin* 4.0 g/dL (3.3-5.0); Chloride* 102 mmol/L (96-114); Sodium* 134 mmol/L (135-149)
[2025-03-26 10:17] LABS: Potassium* 4.0 mmol/L (3.6-5.1)
[2025-03-26 10:19] LABS: Alanine Aminotransferase* 20 U/L (4-35); Alkaline Phosphatase* 50 U/L (40-150); Anion Gap 4 mEq/L (7-15); Aspartate Amino Transferase* 33 U/L (12-35); Bilirubin Total* 0.3 mg/dL (0.1-1.5); Blood Urea Nitrogen* 15 mg/dL (7-30); Carbon Dioxide* 28 mmol/L (20-32); Creatinine* 0.7 mg/dL (0.5-1.5); Est. Creatinine Clearance* 43.45; Estimated Glomerular Filt Rate 97 ml/min; Total Protein* 6.8 g/dL (6.0-8.3)
[2025-03-26 10:20] LABS: Calcium* 9.2 mg/dL (8.4-10.6); Glucose* 122 mg/dL (60-115)
[2025-03-26] MEDS: ZOLEDRONIC ACID 4 MG in 0.9 % SODIUM CHLORIDE 100 ml 100 ML 402 MG IVPB (11:35)
[2025-03-26] MEDS: DEXAMETHASONE 10 MG/ML PF IVP (12:03)
[2025-03-26] MEDS: PEMETREXED IV (12:07)
[2025-03-26] MEDS: TUBING SECONDARY IV (12:07)
[2025-03-26] MEDS: [UNRECOGNIZED DRUG - OTHER] IV (12:07)
[2025-03-26] MEDS: HEPARIN 500 UNIT/5 ML SYRINGE IVF (12:21)
== END 2025-03-29 23:59 | disposition home or self-care (01) ==
LOC: CCIC 09:45
PROVIDERS: Clinical Nurse Specialist; PCP Family Medicine; Referring Provider Family Medicine; Visit Provider Internal Medicine Hematology & Oncology
DX: Z51.11 Encounter for antineoplastic chemotherapy (principal); C34.92 Malignant neoplasm of unspecified part of left bronchus or lung; C79.51 Secondary malignant neoplasm of bone; C79.31 Secondary malignant neoplasm of brain; C78.7 Secondary malignant neoplasm of liver and intrahepatic bile duct; Z79.83 Long term (current) use of bisphosphonates
CPT/HCPCS: 36415; 36591; 80053; 85025; 96365; 96367; 96372; 96375; 96409; 96411; 96413; 99211; 99214; 99215; G0463; J1100; J1453; J1642; J2469; J3420; J3489; J7050; J9045; J9305; Q5108

== ENCOUNTER 2025-04-15 14:18 | Outpatient (CLI) | payer BC, SELFPAY ==
--- NOTE | 2025-04-15 14:30 | CRLHL7_ITS ---
For Patients: As a result of the Century Cures Act, medical imaging exams and procedure reports are released immediately into your electronic medical record. You may view this report before your referring provider. If you have questions, please contact your health care provider. INDICATION: Lung cancer. Evaluate for intracranial metastatic disease. TECHNIQUE: Brain MRI with and without contrast. 10 cc of Dotarem gadolinium based intravenous contrast administered. COMPARISON: Brain MRI from 01/10/2025. FINDINGS: No evidence of acute ischemia. No evidence of acute or chronic intracranial blood products. No mass or pathologic intracranial enhancement. Patchy FLAIR hyperintensities throughout the supratentorial white matter, typical for chronic microvascular ischemic change and/or treatment related leukoencephalopathy. No hydrocephalus or extra-axial collections. The pituitary gland, parasellar structures and optic chiasm are normal. Few tiny chronic infarcts within the left brachium pontis and cerebellar hemispheres. All the major intracranial vascular structures demonstrate normal flow-related signal. The orbital contents are normal. No calvarial or skull base marrow signal abnormality. No obstructive sinus disease. No extracranial soft tissue findings. IMPRESSION: 1. No acute infarction or other acute intracranial pathology. 2. No evidence of intracranial metastatic disease. 3. Moderate chronic microvascular ischemic change and/or treatment related leukoencephalopathy. Stable compared to prior exam. 4. Few tiny chronic cerebellar infarcts. Also stable. Dictated by Swapnil Orozco MD @ 04/16/2025 3:29:59 PM (Electronically Signed)
== END 2025-04-15 14:19 | disposition home or self-care (01) ==
PROVIDERS: PCP Family Medicine; Visit Provider Internal Medicine Hematology & Oncology
DX: C34.92 Malignant neoplasm of unspecified part of left bronchus or lung (principal); I67.82 Cerebral ischemia; I63.9 Cerebral infarction, unspecified; C79.51 Secondary malignant neoplasm of bone
CPT/HCPCS: 70553; A9575